=== PATIENT | female | born 1935 | race Caucasian/White ===

== ENCOUNTER 2017-10-20 13:05 | Emergency (ER) | payer MEDICARE, OTHER, SELFPAY ==
[2017-10-20 13:07] VITALS: BP 141/78; PULSE 66; RESP 16; TEMP 36.6; O2SAT 94; BMI 25.8
[2017-10-20 14:21] VITALS: BP 144/66; PULSE 69; RESP 18; O2SAT 97
--- NOTE | 2017-10-20 14:31 | EKG12_ITS ---
Test Reason : DIZZY Blood Pressure : / mmHG Vent. Rate : 063 BPM Atrial Rate : 063 BPM P-R Int : 166 ms QRS Dur : 126 ms QT Int : 444 ms P-R-T Axes : 074 -66 -03 degrees QTc Int : 454 ms Normal sinus rhythm Right bundle branch block Left anterior fascicular block Bifascicular block Abnormal ECG Confirmed by YOLANDA CRAIG, ZEHRA ([id number]), newspaper photo editor MELISSA RANDALL ([id number]) on 10/21/2017 2:30:03 PM Referred By: OKSANA Confirmed By:ZEHRA GUERRERO MD
--- NOTE | 2017-10-20 14:31 | CT_ITS ---
STUDY: CT BRAIN WITHOUT CONTRAST REASON FOR EXAM: Female, 81 years old. Dizziness, UTI history, history of CVA RADIATION DOSAGE (If Supplied By Facility): CTDIvol = ( 60.81 ) mGy, DLP = ( 998.67 ) mGycm TECHNIQUE: Transaxial CT imaging of the brain was performed without administration of intravenous contrast material. Individualized dose optimization techniques were used for this CT. COMPARISON: December 17, 2012 CT head. FINDINGS: Normal soft tissue structures. Normal calvarium. There is mild cerebral atrophy with widening of the extra-axial spaces and ventricular dilatation. There is a right-sided MCA territory area of low-attenuation involving the right temporoparietal lobe stable since prior study. There is a small punctate focus of low attenuation within the periphery of the left putamen. There is a minimal focus of right external capsule low attenuation. Normal brainstem. There is mild cerebellar atrophy. There is no intracranial hemorrhage. There are no findings of an acute ischemic infarction. Normal visualized paranasal sinuses. CT/Brain/Head without Contrast IMPRESSION: Old right MCA territory infarct. No evidence of acute hemorrhage infarct or edema. No significant sinusitis. Electronically Signed: Tram Bae MD at 15:47 EST Tel , Service support ,
[2017-10-20 14:56] LABS: Absolute Lymphocyte Count 2.18 X10^3/ul (0.83-4.51); Absolute Neutrophil Count 3.1 X10^3/uL (2.0-7.7); Basophil# 0.02 X10^3/uL; Basophil% 0.3 % (0-1); Eosinophil# 0.12 X10^3/uL; Hematocrit 32.8 % (37-47); Hemoglobin 9.7 g/dl (12.0-15.0); Lymphocyte # 2.18 X10^3/ul (4.0); Lymphocyte % 36.2 % (19-41); Mean Corp Hgb Conc 29.6 g/gl (32-36); Mean Corpuscular Hgb 23.3 pg (27.0-32.0); Mean Corpuscular Volume 78.7 fL (81-99); Mean Platelet Vol. 9.1 fl (6.2-12.0); Monocyte# 0.55 X10^3/uL; Monocyte% 9.1 % (0-10); Neutrophil # 3.14 X10^3/uL (2.7-7.7); Neutrophil % 52.2 % (47-70); Platelet Count 278 K/mm3 (150-450); RBC Distribution Width CV 17.9 % (11.6-14.6); RBC Distribution Width SD 51.2 fl (35.1-43.9); Red Blood Count 4.17 M/mm3 (4.2-5.4)
[2017-10-20 14:57] LABS: POSITIVE COUNT NO; POSITIVE DIFFERENTIAL NO; POSITIVE MORPHOLOGY NO
[2017-10-20 15:00] LABS: International Normalized Ratio 2.6; Prothrombin Time (Protime)PT. 28.3 SECONDS (11.7-14.9)
[2017-10-20 15:01] LABS: Bedside Glucose 98 mg/dL (70-110)
[2017-10-20 15:05] LABS: Anion Gap 3 (5-15); BUN 18 mg/dL (7-18); BUN/Creat Ratio 24.8 RATIO (10-20); Calcium,Total 8.3 mg/dL (8.5-10.1); Chloride 108 mmol/L (98-107); Creatinine, Serum 0.73 mg/dL (0.55-1.02); EST Glomerular Filtration Rate 82 mL/min (>60); Est Glom Filt Rate - Afr Amer 99 mL/min (>60); Estimated Creatinine Clearance 42.91 ml/min; Glucose 93 mg/dL (74-106); Potassium 3.5 mmol/L (3.5-5.1); Sodium Level 143 mmol/L (136-145)
[2017-10-20 16:03] LABS: Mucous, Urine 0 SEEN /hpf (<or=2+)
[2017-10-20 16:14] LABS: Color, Urine Yellow (Yellow); Glucose, Dipstick Normal (Normal); Ketone-Dipstick 15 mg/dl (Negative); Leukocyte Esterase-Dipstick 100 /ul (Negative); Nitrite-Dipstick Positive (Negative); Occult Blood-Urine 10 /ul (Negative); Protein-Dipstick 30 mg/dl (Negative); Specific Gravity, Urine 1.015 (1.002-1.030); Urine Clarity Clear (Clear); Urine Urobilinogen 8 mg/dl (Normal); Urine pH 6.5 (5.0 - 8.0)
[2017-10-20 16:21] LABS: Urine Bilirubin Dipstick 1 mg/dL (Negative)
[2017-10-20 16:26] LABS: Red Blood Cells-Urine 0-5 SEEN /hpf (0-5); Squamous Epithelial Cells - UA 0-5 SEEN /hpf (5-10); White Blood Cells 0-5 SEEN /hpf (0-5)
[2017-10-20 16:27] LABS: Bacteria RARE /hpf (None Seen)
[2017-10-20 16:50] VITALS: BP 162/87; PULSE 63; RESP 12; O2SAT 96
--- NOTE | 2017-10-20 16:53 | ED.VISSUMM ---
- ER Visit Summary Date of Service: 10/20/17 Chief Complaint: Dizzy History of Present Illness: The patient is a 81 F patient presents with dizziness since yesterday. She MIs with a walker, states she is walking to the left. There is no falls. Has had intermittent lightheaded symptoms when she lays down at home. There has been no syncopal episodes. No chest pains or shortness of breath. History of stroke and TIA in the past. She is on Coumadin therapy, reviewing records it may be for clotting disorder. There has been no PEs or atrial fibrillation in her records. However she does have a pacemaker for which family states for syncopal episode in the past, likely from a bradycardia. In addition she states she has been noticing blood in her stools. Had a colonoscopy in May last year by Dr. Oseguera for anemia. States there was no findings on that. Also currently on Macrobid day 4 of for UTI treatment by her PCP. States she had dysuria at that time along with back pain, states those symptoms are improving. Denies any abdominal pain. Past medical history: CVA, TIA, [place], hypertension, hypercholesterolemia, SVT, anemia, clotting disorder Physical Examination: General: Alert and oriented ?3, no acute distress HEENT: Normocephalic, atraumatic. Moist mucosa membranes. Normal conjunctiva Neck: supple, nontender. Cardiovascular: Regular rate and rhythm, no murmurs Respiratory: Normal breath sounds, symmetric, no distress Abdomen: Soft, nontender, nondistended Rectal: Nonthrombosed hemorrhoid circumferential, nontender. Brown stools, guaiac negative. . Extremities: Nontender, no edema, pulses intact ?4 Neuro: no focal neurological deficits.NIH equals 0. Cerebellar testing intact Test Results: EKG: Sinus rate of 63, right bundle branch block, left anterior fascicular block, no ST changes. Hemoglobin 9.7. WBC 6. UA: Positive signs for infection. Urine culture pending. CT head with old right MCA infarct. Emergency Department Course and Treatment: Patient vital signs stable, nontoxic. No focal neurological deficits. CT head was obtained shows no acute process, old infarct noted. EKG is chronic changes from previous. Labs noted hemoglobin 9.7 which same from November of last year. Creatinine 0.73. INR 2.6. UA still noted signs of infection. I did send for urine culture. Clinically patient's symptoms are improving, so do feel with improving clinical symptoms, patient to finish her antibiotics pending culture results. She did ambulate to the restroom for the urine sample and remained stable. Since likely UTI causing her symptoms at this time. She will follow-up with her PCP in the next 2-3 days for reevaluation. She return if any worsening symptoms. All questions were answered. Treatment Plan: [] Disposition: Discharge Impression: 1. Dizzy 2. UTI This note was generated with [employer]IVE dictation software. It may contain incorrect words, spelling, and punctuation that were not noted in review of the chart prior to signing ED Disposition - Plan for ED Patient: Disposition: Home or Assisted Living Chief Complaint: Neuro S/Sx Diagnosis: Dizziness, UTI (urinary tract infection) Instructions: ED Dizziness UKO, ED UTI Cystitis Female Referrals: Elmo Burdick DO [Primary Care Provider] - 2 Days Additional Instructions: Finish your Macrobid, urine culture is pending. Follow-up with your PCP in the next 2-3 days. Return if any worsening symptoms.
[2017-10-20 17:07] VITALS: BP 129/84; PULSE 73; RESP 15; O2SAT 98
== END 2017-10-20 17:09 | disposition home or self-care (01) ==
PROVIDERS: Emergency Provider Emergency Medicine; Family Provider Student in an Organized Health Care Education/Training Program; PCP Student in an Organized Health Care Education/Training Program
DX: N39.0 Urinary tract infection, site not specified (principal); R42 Dizziness and giddiness; I47.1 Supraventricular tachycardia; I25.2 Old myocardial infarction; I10 Essential (primary) hypertension; E78.00 Pure hypercholesterolemia, unspecified; D64.9 Anemia, unspecified; D68.9 Coagulation defect, unspecified; Z86.73 Personal history of transient ischemic attack (TIA), and cerebral infarction without residual deficits; Z79.01 Long term (current) use of anticoagulants; Z79.82 Long term (current) use of aspirin; Z79.899 Other long term (current) drug therapy; Z95.0 Presence of cardiac pacemaker
CPT/HCPCS: 70450; 80048; 81001; 82274; 82962; 85025; 85610; 85730; 87086; 87088; 93005; 99284

== ENCOUNTER 2018-08-23 09:15 | Inpatient (IN) | payer MEDICARE, OTHER, SELFPAY ==
[2018-08-23] VITALS (12 sets, daily range): BP systolic 129–152; BP diastolic 60–88; PULSE 60–93; RESP 16–18; TEMP 36.4–36.7; O2SAT 93–98; BMI 24.4; BMI 23.6
--- NOTE | 2018-08-23 09:19 | EKG12_ITS ---
Test Reason : CP Blood Pressure : / mmHG Vent. Rate : 075 BPM Atrial Rate : 060 BPM P-R Int : 186 ms QRS Dur : 126 ms QT Int : 412 ms P-R-T Axes : 062 -66 024 degrees QTc Int : 460 ms Atrial-paced rhythm with frequent Premature ventricular complexes Right bundle branch block Left anterior fascicular block Bifascicular block Abnormal ECG Confirmed by YOLANDA CRAIG, ZEHRA ([id number]), deputy editor in chief MELISSA RANDALL ([id number]) on 08/25/2018 9:13:43 AM Referred By: BB Confirmed By:ZEHRA GUERRERO MD
[2018-08-23 09:28] LABS: Absolute Lymphocyte Count 1.76 X10^3/ul (0.83-4.51); Absolute Neutrophil Count 3.4 X10^3/uL (2.0-7.7); Basophil# 0.02 X10^3/uL; Basophil% 0.4 % (0-1); Eosinophil# 0.12 X10^3/uL; Eosinophils% 2.1 % (0-5); Hematocrit 41.7 % (37-47); Hemoglobin 13.2 g/dl (12.0-15.0); Lymphocyte # 1.76 X10^3/ul (4.0); Lymphocyte % 30.9 % (19-41); Mean Corp Hgb Conc 31.7 g/gl (32-36); Mean Corpuscular Hgb 28.8 pg (27.0-32.0); Mean Platelet Vol. 8.8 fl (6.2-12.0); Monocyte# 0.42 X10^3/uL; Monocyte% 7.4 % (0-10); Neutrophil # 3.37 X10^3/uL (2.7-7.7); POSITIVE COUNT NO; POSITIVE DIFFERENTIAL NO; POSITIVE MORPHOLOGY NO; Platelet Count 229 K/mm3 (150-450); RBC Distribution Width CV 13.4 % (11.6-14.6); RBC Distribution Width SD 44.5 fl (35.1-43.9); Red Blood Count 4.58 M/mm3 (4.2-5.4); White Blood Count 5.7 K/mm3 (4.4-11.0)
--- NOTE | 2018-08-23 09:28 | ED.VISSUMM ---
- ER Visit Summary Date of Service: 08/23/18 Chief Complaint: [] Chest pain this morning History of Present Illness: The patient is a 82 F [] of cardiac pacemaker otherwise she gets her health has been stable, she indicates she woke feeling fine then around 7 AM she been having chest pain that radiates to her upper back it lasted until about 845 it went away by itself. She is not prone to have chest pain, she had no fever no cough no abdominal pain no numbness paresthesias, she is on Coumadin she has a pacemaker not a defibrillator is been functioning fine, her INRs have been therapeutic, she has intermittent blood per rectum she has had colonoscopies this year though unremarkable, thought she had some blood per rectum today this not unusual for her, she is currently pain-free she has no other complaints Physical Examination: [] 140/7598 afebrile General, no distress resting comfortably HEENT is generally unremarkable The neck is supple no adenopathy Cardiovascular, regular rate and rhythm Lungs, clear bilateral Abdomen, soft nontender Extremities, no clubbing cyanosis or edema, she has some scattered bruising to her extremities that she states is not unusual for her, rectal exam shows brown stool multiple hemorrhoids Neurologic, awake alert answering questions appropriately moving all 4 extremities Test Results: [] Emergency Department Course and Treatment: [] EKG shows a sinus rhythm, with pacing, she has occasional PVCs and intermittently in the room she has paced rhythm Treatment Plan: [] Patient's labs are generally unremarkable troponin slightly elevated at 0.05 remains asymptomatic, chest x-ray unremarkable please see all those reports d-dimer negative All the above we spoke with hospitalist arrange for admission for further management patient agrees Disposition: [] Admit stable Impression: [] Chest pain, abnormal troponin, paced rhythm This note was generated with [employer] dictation software. It may contain incorrect words, spelling, and punctuation that were not noted in review of the chart prior to signing ED Disposition - Plan for ED Patient: Chief Complaint: Chest Pain Referrals: Elmo Burdick DO [Primary Care Provider] -
--- NOTE | 2018-08-23 09:30 | RAD_ITS ---
STUDY: X-RAY CHEST REASON FOR EXAM: Female, 82 years old. Chest pain TECHNIQUE: AP COMPARISON: 01/23/2017 FINDINGS: EKG leads project over the chest. Two lead cardiac conduction device is seen via the left subclavian vein with lead tips projecting over the right atrium and right ventricle, respectively. The lungs are clear and expanded. There is no demonstrated pleural abnormality. Normal size heart. Normal mediastinum and roc. Normal visualized pulmonary arteries. There is atherosclerotic calcification of the aortic arch with tortuosity. There is demineralization of the osseous structures. Normal visualized ribs, clavicles, and shoulders. There is no demonstrated abnormality of the visualized soft tissue structures of the upper abdomen. RAD/Chest 1 View (Portable) IMPRESSION: Stable, nonacute portable x-ray examination of the chest. Electronically Signed: Issa Bustos MD at 9:56 EST , Service support ,
[2018-08-23] MEDS: Aspirin 81 MG TAB.CHEW 324 MG PO (09:34)
[2018-08-23] MEDS: 0.9% Normal Saline 1,000 ML 150 ML IV (09:34)
--- NOTE | 2018-08-23 09:36 | ED.DCSUM_ITS ---
- ER Visit Summary Date of Service: 08/23/18 Chief Complaint: [] Chest pain this morning History of Present Illness: The patient is a 82 F [] of cardiac pacemaker otherwise she gets her health has been stable, she indicates she woke feeling fine then around 7 AM she been having chest pain that radiates to her upper back it lasted until about 845 it went away by itself. She is not prone to have chest pain, she had no fever no cough no abdominal pain no numbness paresthesias, she is on Coumadin she has a pacemaker not a defibrillator is been functioning fine, her INRs have been therapeutic, she has intermittent blood per rectum she has had colonoscopies this year though unremarkable, thought she had some blood per rectum today this not unusual for her, she is currently pain- free she has no other complaints Physical Examination: [] 140/7598 afebrile General, no distress resting comfortably HEENT is generally unremarkable The neck is supple no adenopathy Cardiovascular, regular rate and rhythm Lungs, clear bilateral Abdomen, soft nontender Extremities, no clubbing cyanosis or edema, she has some scattered bruising to her extremities that she states is not unusual for her, rectal exam shows brown stool multiple hemorrhoids Neurologic, awake alert answering questions appropriately moving all 4 extremities Test Results: [] Emergency Department Course and Treatment: [] EKG shows a sinus rhythm, with pa cing, she has occasional PVCs and intermittently in the room she has paced rhythm Treatment Plan: [] Patient's labs are generally unremarkable troponin slightly elevated at 0.05 remains asymptomatic, chest x-ray unremarkable please see all those reports d-dimer negative All the above we spoke with hospitalist arrange for admission for further management patient agrees Disposition: [] Admit stable Impression: [] Chest pain, abnormal troponin, paced rhythm This note was generated with [employer] dictation software. It may contain incorrect words, spelling, and punctuation that were not noted in review of the chart prior to signing ED Disposition - Plan for ED Patient: Chief Complaint: Chest Pain Referrals: Elmo Burdick DO [Primary Care Provider] -
[2018-08-23 09:46] LABS: Anion Gap 7 (5-15); BUN 18 mg/dL (7-18); BUN/Creat Ratio 21.8 RATIO (10-20); Calcium,Total 8.9 mg/dL (8.5-10.1); Chloride 108 mmol/L (98-107); Creatinine, Serum 0.83 mg/dL (0.55-1.02); EST Glomerular Filtration Rate 70 mL/min (>60); Est Glom Filt Rate - Afr Amer 85 mL/min (>60); Estimated Creatinine Clearance 50.82 ml/min; Glucose 107 mg/dL (74-106); Potassium 4.2 mmol/L (3.5-5.1); Sodium Level 143 mmol/L (136-145)
[2018-08-23 09:59] LABS: BNP,B-Type NATRIURETIC PEPTIDE 127.1 pg/mL (0-100)
[2018-08-23 10:07] LABS: D-Dimer Quantitative (DVT/PE) 0.27 FEU/ug/m (0.27-0.49)
--- NOTE | 2018-08-23 10:38 | HP.PCM_ITS ---
History of Present Illness Date of Admission: 08/23/18 Chief Complaint: chest pain The patient is a 82 year old F with past medical history as listed. She was admitted with a complaint of chest pain which started early in the morning of admission. Pain was retrosternal, cramping, with associated increased sweating. She denied any lightheadedness or dizziness. She also had no fever chills or cough or any history of long distance travel recently. She called her family who brought her to the ED. The ED, vitals were essentially stable chest x-ray showed no acute cardia pulmonary process. Troponin was 0.046 and EKG showed no acute ST changes and showed bifascicular block and paced rhythm. BNP was 127.1. She is been admitted to be managed for chest pain to rule out ACS. [] Past Medical History Past Medical History (Chronic Problems): Chronic Problems H/O cardiac catheterization (Chronic) History of TIA (transient ischemic attack) (Chronic) History of syncope (Chronic) Hypothyroidism (Chronic) History of breast cancer (Chronic) Benign essential hypertension (Chronic) Allergies levofloxacin [From Levaquin] Allergy (Verified 10/20/17 13:07) Angioedema lisinopril Allergy (Verified 10/20/17 13:07) Swelling Penicillins Allergy (Verified 10/20/17 13:07) Itching Sulfa (Sulfonamide Antibiotics) Allergy (Verified 10/20/17 13:07) Angioedema Home Medications: Ambulatory Orders Medication Instructions Recorded Amlodipine [Norvasc] 2.5 mg PO QHS 08/20/13 Aspirin, Baby 81 mg PO QHS 08/20/13 Atorvastatin Calcium [Lipitor] 20 mg PO QHS 08/20/13 Levothyroxine [Synthroid] 88 mcg PO QHS 08/20/13 Warfarin Sodium 3 mg PO DAILY 12/11/16 Atenolol [Tenormin (beta alissa)] 50 mg PO QHS 05/20/17 Potassium Chloride [Klor-Con 10] 10 meq PO DAILY 05/26/17 Ferrous Sulfate [Iron] 325 mg PO DAILY 08/23/18 Surgical History: - - Pacemaker placement, cardiac catheterization, loop recorder implantation, right mastectomy Psychiatric History: No pertinent psych hx 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 Denies: Chest Pressure, Chest Tightness, Edema, Orthopnea, Palpitations, Paroxysmal Noc. Dyspnea, Syncope Respiratory: Denies: Cough, Pleuritic Pain, Shortness of Breath, Shortness of breath at rest, Shortness of breath upon exertion, Sputum production Gastrointestinal: Denies: Abdominal Pain, Nausea, Vomiting Musculoskeletal: Denies: Joint Pain, Joint Tenderness Skin: Denies: Rash, Wounds Neurological: Denies: Numbness, Tingling, Focal weakness Psychiatric: Denies: Anxiety, Depression, Homicidal Ideations, Suicidal Ideations Hematologic/ Lymphatic: Denies: Easy Bruising, Easy Bleeding VTE Information - Inpt Only VTE Present on Admission: No VTE Pharm Prophylaxis ordered?: Yes - Physical Exam General: Alert, Oriented x3, Cooperative, No apparent distress HEENT: Atraumatic, PERRLA, EOMI, Normocephalic Oral: Moist Mucosa Neck: Supple, No JVD, Negative Carotid Bruits Lungs: Clear to auscultation, Normal air movement, No rhonchi, No wheeze, No rales Cardiovascular: Regular rate, Regular Rhythm, Normal S1, Normal S2, No murmurs Abdomen: Bowel Sounds Present, Soft, Non Tender, Non-Distended, No Hepato- splenomegaly Extremities: No clubbing, No cyanosis, No edema, Capillary Refill Less than 3 Seconds Skin: No rashes, No breakdown Musculoskeletal: No Tenderness to Palpation of Joints or Extremities, - - right breast mastectomy Lymphatic: No Cervical, Supraclavicular, or Inguinal Adenopathy Neurological: Cranial nerves II-XII grossly intact, Neuro grossly intact Psych/Mental Status: Normal Affect, Appropriate, Alert and oriented to time, place, person, mood and affect Vital Signs Temp Pulse Resp BP Pulse Ox 97.6 F L 93 16 129/60 H 96 08/23/18 09:16 08/23/18 10:06 08/23/18 10:06 08/23/18 10:06 08/23/18 10:06 Oxygen Flow Rate (L/min) 2 Oxygen Delivery Method Nasal Cannula Weight: 156 lb 1.396 oz Body Mass Index (BMI) 24.4 Finger Stick Blood Glucose 98 Laboratory Tests Past 24 Hrs 08/23/18 08/23/18 08/23/18 09:24 09:24 09:24 WBC 5.7 RBC 4.58 Hgb 13.2 Hct 41.7 MCV 91.0 MCH 28.8 MCHC 31.7 L RDW 13.4 RDW Differential 44.5 H Plt Count 229 MPV 8.8 Immature Gran % (Auto) 0.200 Neut % (Auto) 59.0 Lymph % (Auto) 30.9 [place] % (Auto) 7.4 Eos % (Auto) 2.1 Baso % (Auto) 0.4 Absolute Neuts (auto) 3.4 Absolute Lymphs (auto) 1.76 Total Counted Not Reportable PT INR D-Dimer Quant (PE/DVT) Sodium 143 Potassium 4.2 Chloride 108 H Carbon Dioxide 28.0 Anion Gap 7 BUN 18 Creatinine 0.83 Estim Creat Clear Calc 50.82 Est GFR (MDRD) Af Amer 85 Est GFR (MDRD) Non-Af 70 BUN/Creatinine Ratio 21.8 H Glucose 107 H Calcium 8.9 Troponin I 0.046 H B-Natriuretic Peptide 127.1 H 08/23/18 09:24 WBC RBC Hgb Hct MCV MCH MCHC RDW RDW Differential Plt Count MPV Immature Gran % (Auto) Neut % (Auto) Lymph % (Auto) [place] % (Auto) Eos % (Auto) Baso % (Auto) Absolute Neuts (auto) Absolute Lymphs (auto) Total Counted PT 23.0 H INR 2.0 D-Dimer Quant (PE/DVT) 0.27 Sodium Potassium Chloride Carbon Dioxide Anion Gap BUN Creatinine Estim Creat Clear Calc Est GFR (MDRD) Af Amer Est GFR (MDRD) Non-Af BUN/Creatinine Ratio Glucose Calcium Troponin I B-Natriuretic Peptide Assessment/Plan 82-year-old admitted with a complaint of chest pain 1. NSTEMI * presented with Chest pain which is retrosternal cramping in nature with associated increased diaphoresis. * has a history of NSTEMi in 2014; cath done in 2012 was negative * initial troponin was 0.056; no acute ST changes; troponin trended upwards to 0.758 * admit to PCU with telemetry * cycle troponins * received one dose of aspirin 324mg in ED; will give plavix 300mg once and atorvastatin 40mg once, and continue daily * 2D echo tomorrow * cardiology consult * * 2. Hypertension: controlled. On amlodipine and atenolol 3. History of syncope s/p pacemaker placement: stable 5. Hypothyroidism; on synthroid 6.History of hypercoagulable state: on coumadin. INR is 2. Will continue 7. History of breast ca s/p right mastectomy and adjuvant chemotherapy * stable. 8. History of episodic rectal bleeding: * EGD and colonoscopy done in 06/03 showed normal duodenum and normal stomach and esophagus; few fundic polyps in stomach which were biopsied; hiatal hernia, normal cecum, ascending, transverse and descending colon, moderate div erticular disease in sigmoid colon.SIgnificant external hemorrhoids * currently stable. * will monitor * DVT prophylaxis: on coumadin. Code status; patient and family counseled extensively about different types of CODE STATUS including full code, DNR CCA and DNR CCA. Patient elects to be DNRCCA. Total [id number] time 16 minutes. Code Visit Inpatient E&M: 37072 Init Hosp L3 Procedures: 89306 Advncd Care Plan 30 Min
--- NOTE | 2018-08-23 11:33 | EKG12_ITS ---
Test Reason : CP ADMIT Blood Pressure : / mmHG Vent. Rate : 080 BPM Atrial Rate : 080 BPM P-R Int : 194 ms QRS Dur : 126 ms QT Int : 406 ms P-R-T Axes : 000 -71 026 degrees QTc Int : 468 ms Atrial-paced rhythm Right bundle branch block Left anterior fascicular block Bifascicular block Abnormal ECG Confirmed by DONNY CRAIG, KLEVER ([id number]), video effects editor MELISSA RANDALL ([id number]) on 08/27/2018 10:53:03 AM Referred By: ALEXI Confirmed By:KLEVER HINES MD
--- NOTE | 2018-08-23 14:28 | NURSING ---
Pt ambulated in loo with this RN. Pt was asymptomatic with activity; no dizziness, lightheadedness, or syncope. ECG reviewed after activity and pt remained NSR with HR in the 60's while ambulating. Daniel ROBLES
[2018-08-23] MEDS: Clopidogrel Bisulfate 300 MG Tablet PO (15:08)
[2018-08-23] MEDS: Aspirin 81 MG TAB.CHEW PO (21:18)
[2018-08-23] MEDS: Atenolol 50 MG Tablet PO (21:18)
[2018-08-23] MEDS: amLODIPine 2.5 MG Tablet PO (21:18)
[2018-08-23] MEDS: Atorvastatin Calcium 40 MG Tablet PO (21:18)
[2018-08-23 21:58] LABS: Magnesium 2.1 mg/dL (1.6-2.6)
[2018-08-24] VITALS (11 sets, daily range): BP systolic 110–153; BP diastolic 63–78; PULSE 60–66; RESP 14–18; TEMP 36.5–36.9; O2SAT 93–95
[2018-08-24 05:40] LABS: Absolute Lymphocyte Count 2.14 X10^3/ul (0.83-4.51); Absolute Neutrophil Count 2.5 X10^3/uL (2.0-7.7); Basophil# 0.02 X10^3/uL; Basophil% 0.4 % (0-1); Eosinophil# 0.21 X10^3/uL; Hematocrit 40.7 % (37-47); Lymphocyte # 2.14 X10^3/ul (4.0); Lymphocyte % 40.7 % (19-41); Mean Corp Hgb Conc 31.9 g/gl (32-36); Mean Corpuscular Hgb 28.9 pg (27.0-32.0); Mean Corpuscular Volume 90.4 fL (81-99); Mean Platelet Vol. 9.2 fl (6.2-12.0); Monocyte# 0.41 X10^3/uL; Monocyte% 7.8 % (0-10); Neutrophil # 2.48 X10^3/uL (2.7-7.7); Neutrophil % 47.1 % (47-70); Platelet Count 219 K/mm3 (150-450); RBC Distribution Width CV 13.2 % (11.6-14.6); RBC Distribution Width SD 43.9 fl (35.1-43.9); White Blood Count 5.3 K/mm3 (4.4-11.0)
[2018-08-24 05:47] LABS: Anion Gap 6 (5-15); BUN 11 mg/dL (7-18); BUN/Creat Ratio 16.4 RATIO (10-20); Calcium,Total 8.8 mg/dL (8.5-10.1); Chloride 110 mmol/L (98-107); Creatinine, Serum 0.67 mg/dL (0.55-1.02); EST Glomerular Filtration Rate 89 mL/min (>60); Est Glom Filt Rate - Afr Amer 108 mL/min (>60); Estimated Creatinine Clearance 42.18 ml/min; Glucose 100 mg/dL (74-106); Potassium 4.1 mmol/L (3.5-5.1); Sodium Level 143 mmol/L (136-145)
[2018-08-24 05:49] LABS: Bacteria 0 SEEN /hpf (None Seen); Mucous, Urine 0 SEEN /hpf (<or=2+); Red Blood Cells-Urine 0 SEEN /hpf (0-5)
[2018-08-24] MEDS: Levothyroxine 88 MCG Tablet PO (05:51)
[2018-08-24] MEDS: Aspirin 81 MG TAB.CHEW PO (05:55)
--- NOTE | 2018-08-24 05:55 | EKG12_ITS ---
Test Reason : AM EKG Blood Pressure : / mmHG Vent. Rate : 060 BPM Atrial Rate : 060 BPM P-R Int : 190 ms QRS Dur : 126 ms QT Int : 424 ms P-R-T Axes : 000 -69 -31 degrees QTc Int : 424 ms Atrial-paced rhythm Right bundle branch block Left anterior fascicular block Bifascicular block Inferior infarct , age undetermined Abnormal ECG Confirmed by DONNY CRAIG, KLEVER ([id number]), multimedia editor MELISSA RANDALL ([id number]) on 08/27/2018 10:50:53 AM Referred By: ALEXI Confirmed By:KLEVER HINES MD
[2018-08-24] MEDS: 0.9% NaCl Peripheral Flush Adult/Peds IV (06:01)
[2018-08-24 06:13] LABS: Prothrombin Time (Protime)PT. 22.8 SECONDS (11.7-14.9)
[2018-08-24 06:14] LABS: Partial Thromboplast Time 34.3 Seconds (24.1-36.2)
[2018-08-24 06:25] LABS: POSITIVE COUNT NO; POSITIVE DIFFERENTIAL NO; POSITIVE MORPHOLOGY NO
--- NOTE | 2018-08-24 08:00 | ECHOCS_ITS ---
Reason For Study: CHEST PAIN Procedure This was a 2D Doppler, Color Flow transthoracic echocardiogram. Contrast injection was performed. The study was technically difficult. Exam performed portable in patient room. Left Ventricle Normal LV size. Left ventricular systolic function is normal. The estimated ejection fraction is 55 %. Stage 1 diastolic dysfunction. No regional wall motion abnormalities noted. Right Ventricle Normal RV size. ICD or pacer leads identified within the right ventricle. Normal systolic function. Atria Normal left atrium. Normal right atrium. Mitral Valve Normal mitral valve. Tricuspid Valve Normal tricuspid valve. Trivial tricuspid valve insufficiency. Aortic Valve The aortic valve is not well visualized. Pulmonic Valve The pulmonic valve is not well visualized. Great Vessels Normal aortic root. The pulmonary artery is normal size. Normal inferior vena cava. Pericardium/Pleural No pericardial effusion. Medication Diluted definity 9ml given slow IV push to enhance endocardial definition. MMode/2D Measurements & Calculations LVIDd: 4.5 cm IVSd: 1.0 cm Ao root diam: 3.2 cm LVIDs: 3.3 cm LVPWd: 0.87 cm FS: 25.8 % LAV(MOD-bp): 51.5 ml LVAd ap4: 31.1 cm2 SV(MOD-sp4): 56.6 ml LAV(MOD-bp) Indexed: 28.8 ml/m2 EDV(MOD-sp4): 107.7 ml LAV(MOD-sp2): 42.4 ml EDV(sp4-el): 111.1 ml LAV(MOD-sp4): 59.7 ml LVAs ap4: 20.6 cm2 ESV(MOD-sp4): 51.1 ml ESV(sp4-el): 55.5 ml EF(MOD-sp4): 52.5 % EF(sp4-el): 50.0 % SV(sp4-el): 55.6 ml LA A4 area: 20.1 cm2 LA dimension(2D): 3.6 cm RA A4 area: 11.9 cm2 Time Measurements MV dec time: 0.35 sec Doppler Measurements & Calculations MV E max sanjiv: 55.9 cm/sec Lat Peak E' Sanjiv: 5.7 cm/sec Med Peak E' Sanjiv: 3.8 cm/sec MV A max sanjiv: 94.1 cm/sec E/E' lat: 9.8 E/E' med: 14.7 MV E/A: 0.59 MV V2 max: 92.3 cm/sec Ao V2 max: 153.4 cm/sec LV V1 max: 92.1 cm/sec MV max P.4 mmHg Ao max P.4 mmHg LV V1 max P.4 mmHg MV V2 mean: 50.7 cm/sec Ao V2 mean: 108.9 cm/sec LV V1 mean P.7 mmHg MV mean P.2 mmHg Ao mean P.1 mmHg LV V1 mean: 60.1 cm/sec MV V2 VTI: 33.5 cm Ao V2 VTI: 30.0 cm LV V1 VTI: 18.3 cm PA V2 max: 73.8 cm/sec TR max sanjiv: 212.1 cm/sec MV P1/2t-pr_phl: 163.7 msec TR max P.0 mmHg Interpretation Summary Normal LV size. Left ventricular systolic function is normal. The estimated ejection fraction is 55 %. Stage 1 diastolic dysfunction. Contrast injection was performed. Ordering Physician: Radha Suazo Referring Physician: RICK GARLAND Performed By: Melissa Murphy, TIENCS, RVT
[2018-08-24 08:16] LABS: Color, Urine Yellow (Yellow); Glucose, Dipstick Normal (Normal); Ketone-Dipstick Negative (Negative); Leukocyte Esterase-Dipstick Negative /ul (Negative); Nitrite-Dipstick Negative (Negative); Occult Blood-Urine Negative /ul (Negative); Protein-Dipstick Negative (Negative); Urine Bilirubin Dipstick Negative (Negative); Urine Clarity Clear (Clear); Urine Urobilinogen Normal (Normal)
[2018-08-24 08:23] LABS: Squamous Epithelial Cells - UA 0-5 SEEN /hpf (5-10); White Blood Cells 0-5 SEEN /hpf (0-5)
--- NOTE | 2018-08-24 09:51 | PCM.CONS.C ---
Problem List (1) Pacemaker Status: Acute (2) H/O cardiac catheterization Status: Chronic (3) History of TIA (transient ischemic attack) Status: Chronic (4) Benign essential hypertension Status: Chronic Reason for Consult Date of Consultation: 08/24/18 Reason for Consultation: Pacemaker, TIA, hypertension, previous smoker non-STEMI History of Present Illness: The patient is a 82 year old F, was fairly functional, nondiabetic, with hypertension, previous pacemaker placed in 2012, follows with Dr. Reid here locally, presumptive history of TIA and is on chronic Coumadin therapy at least for the last 2 years. She is a former smoker who quit around 20 years ago after a [id number] smoking history. The patient is fairly active and lives alone, and while she was doing her daily chores yesterday she developed midsternal chest pain, which was nonradiating with no associated shortness of breath but did have some nausea but no vomiting. When her symptoms did not improve she came to [facility] ER. Her EKG showed paced atrial rhythm with left anterior hemiblock, and baseline right bundle branch block. No acute changes were noted. Her initial troponin was 0.056, and peaked at 2.0. Patient was loaded with Plavix and her Coumadin was held. Her INR this morning is 2.0. In addition the patient reportedly had a catheterization several years ago prior to her pacemaker apparently was unable to go through the right radial, as well as the right femoral but she does not remember why. The patient has excellent pulses in her bilateral femoral arteries. 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 [] Past Medical History Allergies/Adverse Reactions: Allergies levofloxacin [From Levaquin] Allergy (Verified 10/20/17 13:07) Angioedema lisinopril Allergy (Verified 10/20/17 13:07) Swelling Penicillins Allergy (Verified 10/20/17 13:07) Itching Sulfa (Sulfonamide Antibiotics) Allergy (Verified 10/20/17 13:07) Angioedema Home Medications: Ambulatory Orders Medication Instructions Recorded Amlodipine [Norvasc] 2.5 mg PO QHS 08/20/13 Aspirin, Baby 81 mg PO QHS 08/20/13 Atorvastatin Calcium [Lipitor] 20 mg PO QHS 08/20/13 Levothyroxine [Synthroid] 88 mcg PO QHS 08/20/13 Warfarin Sodium 3 mg PO DAILY 04/26/17 Atenolol [Tenormin (beta alissa)] 50 mg PO QHS 05/20/17 Potassium Chloride [Klor-Con 10] 10 meq PO DAILY 05/26/17 Ferrous Sulfate [Iron] 325 mg PO DAILY 08/23/18 Past Medical History (Chronic Problems): Chronic Problems H/O cardiac catheterization (Chronic) History of TIA (transient ischemic attack) (Chronic) History of syncope (Chronic) Hypothyroidism (Chronic) History of breast cancer (Chronic) Benign essential hypertension (Chronic) Surgical History: - - Pacemaker placement, cardiac catheterization, loop recorder implantation, right mastectomy Psychiatric History: 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 Denies: Shortness of Breath, Orthopnea, PND, Peripheral Edema, Palpitations, Lightheadedness, Dizziness, Near Syncope, Syncope Respiratory: Denies: Cough, Sputum Production, Hemoptysis Gastrointestinal: Denies: Hematemesis, Hematochezia, Melena Genitourinary: Denies: Dysuria, Hematuria Skin: Denies: Rash Subjectve: Patient resting comfortably, no acute distress. Objective: Vital Signs Temp Pulse Resp BP Pulse Ox 97.7 F L 60 16 153/73 H 94 08/24/18 09:00 08/24/18 09:00 08/24/18 09:00 08/24/18 09:00 08/24/18 09:00 Oxygen Flow Rate (L/min) 2 Oxygen Delivery Method Room Air Weight: 150 lb 14.4 oz Body Mass Index (BMI) 23.6 Finger Stick Blood Glucose 98 Intake and Output for Last 24 Hours 08/22/18 08/23/18 08/24/18 23:59 23:59 23:59 Intake Total 375 / 375 120 / 120 Balance 375 / 375 120 / 120 General: Awake, Alert, Oriented x 3 HEENT: PERRL, EOMI, Sclera Non Icteric Neck: Supple, Good ROM, No Lymph Node Enlargement Lungs: Clear to auscultation Cardiovascular: Regular Rhythm, Normal S1, Normal S2, No Murmurs, No Rubs, No Gallops Vascular: No Carotid Bruits, Normal Femoral Pulses, Normal Radial Pulses, Normal Dorsalis Pedal Pulse, Normal Posterior Tibial Pulses Abdomen: Bowel Sounds Present, Soft, Non Tender, No HSM, No Organomegaly Extremities: No Cyanosis, No Clubbing, No edema Neurological: No Focal Motor or Sensory Deficit 08/23/18 09:24: B-Natriuretic Peptide 127.1 H 08/23/18 09:24: PT 23.0 H, INR 2.0, D-Dimer Quant (PE/DVT) 0.27 08/23/18 12:20: Troponin I 0.758 H* 08/23/18 15:40: Troponin I 1.570 H* 08/23/18 17:12: Troponin I 1.980 H* 08/23/18 20:07: Troponin I 2.180 H* 08/23/18 20:07: Magnesium 2.1 08/23/18 22:58: Troponin I 2.070 H* 08/24/18 04:58: Urine Color Yellow, Urine Clarity Clear, Urine pH 7.0, Ur Specific [place] 1.010, Urine Protein Negative, Urine Glucose (UA) Normal, Urine Ketones Negative, Urine Occult Blood Negative, Urine Nitrite Negative, Urine Bilirubin Negative, Urine Urobilinogen Normal, Ur Leukocyte Esterase Negative, Urine RBC 0 SEEN, Urine WBC 0-5 SEEN 08/24/18 05:00: WBC 5.3, RBC 4.50, Hgb 13.0, Hct 40.7, MCV 90.4, MCH 28.9, MCHC 31.9 L, RDW 13.2, RDW Differential 43.9, Plt Count 219, MPV 9.2, Immature Gran % (Auto) 0.000, Neut % (Auto) 47.1, Lymph % (Auto) 40.7, [place] % (Auto) 7.8, Eos % (Auto) 4.0, Baso % (Auto) 0.4, Absolute Neuts (auto) 2.5, Total Counted Not Reportable 08/24/18 05:00: Sodium 143, Potassium 4.1, Chloride 110 H, Carbon Dioxide 27.0, Anion Gap 6, BUN 11, Creatinine 0.67, Est GFR (MDRD) Af Amer 108, Est GFR (MDRD) Non-Af 89, BUN/Creatinine Ratio 16.4, Glucose 100, Calcium 8.8 08/24/18 05:00: PT 22.8 H, INR 2.0, APTT 34.3 Rhythm: EKG: As above ECHO: Pending Stress Test: Cardiac Cath: Pending PCI: CT Surgery: Holter monitor: EPS: PPM: CXR: Chest CT Scan: Assessment/Plan 1. Unstable angina: The patient presents with new onset anginal symptoms, with associated chest pain, angina, nausea, with abnormal troponins peaking at 2.0. Patient did have a catheterization many years ago however we do not have those records. She reportedly was unable to gain access via the radial or right femoral reportedly due to mastectomy. Patient was loaded with 300 mg of Plavix and would recommend baby aspirin 81 mg daily, Plavix 75 mg a day, continue atenolol and nitroglycerin paste. We will need to wait to her INR decreases to at least 1.6 prior to catheterization via the right or left groin. She has excellent pulses bilaterally but does have a history of vasculitis which may have been the reason why they could not access her right femoral artery. In addition she will undergo a 2D echo with Doppler to document her LV function and valvular status as well as her pulmonary pressures. 2. Hyperlipidemia: Recommend obtaining a fasting lipid profile. Continue Lipitor. 3. Status post pacemaker: Patient status post pacemaker. We will need to obtain the records of Dr. Reid's office with respect to her pacemaker, previous catheterization. The patient reportedly has had no stents in the past. 4. TIA: As best I can tell the patient is on Coumadin for possible previous TIA as well as possibly for vasculitis. This will need to be held prior to her catheterization and can be resumed once it is been completed. 5. Thank you very much for the opportunity to participate in the cardiac care of your patient. Consultation time took place between 930 and 10 AM. Code Visit Inpatient E&M: 44840 Init Hosp L2
--- NOTE | 2018-08-24 09:52 | PCM.PN.HOSP ---
Subjective: Patient seen and examined. She was admitted with a complaint of chest pain. She was found to have a non-STEMI. Cardiology on board. Patient has no complaints this morning. Chest pain has resolved. She denies any fever, any chills, any palpitations or shortness of breath, any dizziness, any abdominal pain, any diarrhea vomiting. Review of systems otherwise negative. Labs and vitals reviewed. Vitals/I&O's: Vital Signs Temp Pulse Resp BP Pulse Ox 97.7 F L 60 16 153/73 H 94 08/24/18 09:00 08/24/18 09:00 08/24/18 09:00 08/24/18 09:00 08/24/18 09:00 Oxygen Flow Rate (L/min) 2 Oxygen Delivery Method Room Air Weight: 150 lb 14.4 oz Body Mass Index (BMI) 23.6 Finger Stick Blood Glucose 98 Intake and Output for Last 24 Hours 08/22/18 08/23/18 08/24/18 23:59 23:59 23:59 Intake Total 375 / 375 120 / 120 Balance 375 / 375 120 / 120 General: Alert, Oriented x3, Cooperative, No apparent distress HEENT: Atraumatic, PERRLA, EOMI, Normocephalic Oral: Moist Mucosa Neck: Supple, No JVD, Negative Carotid Bruits Lungs: Clear to auscultation, Normal air movement, No rhonchi, No wheeze, No rales Cardiovascular: Regular rate, Regular Rhythm, Normal S1, Normal S2, No murmurs Abdomen: Bowel Sounds Present, Soft, Non Tender, Non-Distended, No Hepato-splenomegaly Extremities: No clubbing, No cyanosis, No edema, Capillary Refill Less than 3 Seconds Skin: No rashes, No breakdown Musculoskeletal: No Tenderness to Palpation of Joints or Extremities, - - right breast mastectomy Lymphatic: No Cervical, Supraclavicular, or Inguinal Adenopathy Neurological: Cranial nerves II-XII grossly intact, Neuro grossly intact Psych/Mental Status: Normal Affect, Appropriate, Alert and oriented to time, place, person, mood and affect Laboratory Results 08/23/18 09:24: B-Natriuretic Peptide 127.1 H 08/23/18 09:24: PT 23.0 H, INR 2.0, D-Dimer Quant (PE/DVT) 0.27 08/23/18 12:20: Troponin I 0.758 H* 08/23/18 15:40: Troponin I 1.570 H* 08/23/18 17:12: Troponin I 1.980 H* 08/23/18 20:07: Troponin I 2.180 H* 08/23/18 20:07: Magnesium 2.1 08/23/18 22:58: Troponin I 2.070 H* 08/24/18 04:58: Urine Color Yellow, Urine Clarity Clear, Urine pH 7.0, Ur Specific [place] 1.010, Urine Protein Negative, Urine Glucose (UA) Normal, Urine Ketones Negative, Urine Occult Blood Negative, Urine Nitrite Negative, Urine Bilirubin Negative, Urine Urobilinogen Normal, Ur Leukocyte Esterase Negative, Urine RBC 0 SEEN, Urine WBC 0-5 SEEN, Ur Squamous Epith Cells 0-5 SEEN, Urine Bacteria 0 SEEN, Urine Mucus 0 SEEN 08/24/18 05:00: WBC 5.3, RBC 4.50, Hgb 13.0, Hct 40.7, MCV 90.4, MCH 28.9, MCHC 31.9 L, RDW 13.2, RDW Differential 43.9, Plt Count 219, MPV 9.2, Immature Gran % (Auto) 0.000, Neut % (Auto) 47.1, Lymph % (Auto) 40.7, [place] % (Auto) 7.8, Eos % (Auto) 4.0, Baso % (Auto) 0.4, Absolute Neuts (auto) 2.5, Absolute Lymphs (auto) 2.14, Total Counted Not Reportable 08/24/18 05:00: Sodium 143, Potassium 4.1, Chloride 110 H, Carbon Dioxide 27.0, Anion Gap 6, BUN 11, Creatinine 0.67, Estim Creat Clear Calc 42.18, Est GFR (MDRD) Af Amer 108, Est GFR (MDRD) Non-Af 89, BUN/Creatinine Ratio 16.4, Glucose 100, Calcium 8.8 08/24/18 05:00: PT 22.8 H, INR 2.0, APTT 34.3 Current Medications Amlodipine Besylate (Norvasc) 2.5 mg PO QHS [facility] Last Admin: 08/23/18 21:18 Dose: 2.5 mg Aspirin (Aspirin, Baby) 81 mg PO QHS [facility] Last Admin: 08/24/18 05:55 Dose: 81 mg Atenolol (Tenormin (Beta Candace)) 50 mg PO QHS [facility] Last Admin: 08/23/18 21:18 Dose: 50 mg Atorvastatin Calcium (Lipitor) 40 mg PO QHS [facility] Last Admin: 08/23/18 21:18 Dose: 40 mg Clopidogrel Bisulfate (Plavix) 75 mg PO DAILY [facility] Sodium Chloride () 1,000 mls @ 0 mls/hr IV .Q0M [facility] Last Admin: 08/23/18 09:34 Dose: 150 mls/hr Levothyroxine Sodium (Synthroid) 88 mcg PO DAILY@0600 [facility] Last Admin: 08/24/18 05:51 Dose: 88 mcg Magnesium Hydroxide (Milk Of Magnesia) 30 ml PO DAILY PRN PRN PRN Reason: Constipation Nitroglycerin (Nitrostat) 0.4 mg SUBLINGUAL Q5M PRN PRN Reason: CARDIAC/CHEST PAIN Potassium Chloride (K-Dur) 10 meq PO DAILYCM [facility] Sodium Chloride () 5 - 15 ml IV UD PRN PRN Reason: SALINE FLUSH Last Admin: 08/24/18 06:01 Dose: 10 ml Warfarin Sodium (Coumadin (Pbkc)) 3 mg PO DAILY@1700 [facility] Medical Necessity - Tobacco Use Smoking Status: Former smoker Assessment/Plan 82-year-old admitted with a complaint of chest pain 1. NSTEMI chest pain has resolved troponin trended up and peaked at 2.18 cardiology on board on aspirin, plavix and atorvastatin 2D echo pending cardiology on board will check A1C and lipid panel 2. Hypertension: controlled. On amlodipine and atenolol 3. History of syncope s/p pacemaker placement: stable 5. Hypothyroidism; on synthroid 6.History of hypercoagulable state: on coumadin. INR today is 2. 7. History of breast ca s/p right mastectomy and adjuvant chemotherapy stable. 8. History of episodic rectal bleeding: EGD and colonoscopy done in 06/03 showed normal duodenum and normal stomach and esophagus; few fundic polyps in stomach which were biopsied; hiatal hernia, normal cecum, ascending, transverse and descending colon, moderate diverticular disease in sigmoid colon.SIgnificant external hemorrhoids currently stable. will monitor DVT prophylaxis: on coumadin. Code Visit Inpatient E&M: 40031 [facility] L3
--- NOTE | 2018-08-24 09:55 | PN_ITS ---
Subjective: Patient seen and examined. She was admitted with a complaint of chest pain. She was found to have a non-STEMI. Cardiology on board. Patient has no complaints this morning. Chest pain has resolved. She denies any fever, any chills, any palpitations or shortness of breath, any dizziness, any abdominal pain, any diarrhea vomiting. Review of systems otherwise negative. Labs and vitals reviewed. Vitals/I&O's: Vital Signs Temp Pulse Resp BP Pulse Ox 97.7 F L 60 16 153/73 H 94 08/24/18 09:00 08/24/18 09:00 08/24/18 09:00 08/24/18 09:00 08/24/18 09:00 Oxygen Flow Rate (L/min) 2 Oxygen Delivery Method Room Air Weight: 150 lb 14.4 oz Body Mass Index (BMI) 23.6 Finger Stick Blood Glucose 98 Intake and Output for Last 24 Hours 08/22/18 08/23/18 08/24/18 23:59 23:59 23:59 Intake Total 375 / 375 120 / 120 Balance 375 / 375 120 / 120 General: Alert, Oriented x3, Cooperative, No apparent distress HEENT: Atraumatic, PERRLA, EOMI, Normocephalic Oral: Moist Mucosa Neck: Supple, No JVD, Negative Carotid Bruits Lungs: Clear to auscultation, Normal air movement, No rhonchi, No wheeze, No rales Cardiovascular: Regular rate, Regular Rhythm, Normal S1, Normal S2, No murmurs Abdomen: Bowel Sounds Present, Soft, Non Tender, Non-Distended, No Hepato- splenomegaly Extremities: No clubbing, No cyanosis, No edema, Capillary Refill Less than 3 Seconds Skin: No rashes, No breakdown Musculoskeletal: No Tenderness to Palpation of Joints or Extremities, - - right breast mastectomy Lymphatic: No Cervical, Supraclavicular, or Inguinal Adenopathy Neurological: Cranial nerves II-XII grossly intact, Neuro grossly intact Psych/Mental Status: Normal Affect, Appropriate, Alert and oriented to time, place, person, mood and affect Laboratory Results 08/23/18 09:24: B-Natriuretic Peptide 127.1 H 08/23/18 09:24: PT 23.0 H, INR 2.0, D-Dimer Quant (PE/DVT) 0.27 08/23/18 12:20: Troponin I 0.758 H* 08/23/18 15:40: Troponin I 1.570 H* 08/23/18 17:12: Troponin I 1.980 H* 08/23/18 20:07: Troponin I 2.180 H* 08/23/18 20:07: Magnesium 2.1 08/23/18 22:58: Troponin I 2.070 H* 08/24/18 04:58: Urine Color Yellow, Urine Clarity Clear, Urine pH 7.0, Ur Specific [place] 1.010, Urine Protein Negative, Urine Glucose (UA) Normal, Urine Ketones Negative, Urine Occult Blood Negative, Urine Nitrite Negative, Urine Bilirubin Negative, Urine Urobilinogen Normal, Ur Leukocyte Esterase Negative, Urine RBC 0 SEEN, Urine WBC 0-5 SEEN, Ur Squamous Epith Cells 0-5 SEEN, Urine Bacteria 0 SEEN, Urine Mucus 0 SEEN 08/24/18 05:00: WBC 5.3, RBC 4.50, Hgb 13.0, Hct 40.7, MCV 90.4, MCH 28.9, MCHC 31.9 L, RDW 13.2, RDW Differential 43.9, Plt Count 219, MPV 9.2, Immature Gran % (Auto) 0.000, Neut % (Auto) 47.1, Lymph % (Auto) 40.7, [place] % (Auto) 7.8, Eos % (Auto) 4.0, Baso % (Auto) 0.4, Absolute Neuts (auto) 2.5, Absolute Lymphs (auto) 2.14, Total Counted Not Reportable 08/24/18 05:00: Sodium 143, Potassium 4.1, Chloride 110 H, Carbon Dioxide 27.0, Anion Gap 6, BUN 11, Creatinine 0.67, Estim Creat Clear Calc 42.18, Est GFR (MDRD) Af Amer 108, Est GFR (MDRD) Non-Af 89, BUN/Creatinine Ratio 16.4, Glucose 100, Calcium 8.8 08/24/18 05:00: PT 22.8 H, INR 2.0, APTT 34.3 Current Medications Amlodipine Besylate (Norvasc) 2.5 mg PO QHS [facility] Last Admin: 08/23/18 21:18 Dose: 2.5 mg Aspirin (Aspirin, Baby) 81 mg PO QHS [facility] Last Admin: 08/24/18 05:55 Dose: 81 mg Atenolol (Tenormin (Beta Candace)) 50 mg PO QHS [facility] Last Admin: 08/23/18 21:18 Dose: 50 mg Atorvastatin Calcium (Lipitor) 40 mg PO QHS [facility] Last Admin: 08/23/18 21:18 Dose: 40 mg Clopidogrel Bisulfate (Plavix) 75 mg PO DAILY [facility] Sodium Chloride () 1,000 mls @ 0 mls/hr IV .Q0M [facility] Last Admin: 08/23/18 09:34 Dose: 150 mls/hr Levothyroxine Sodium (Synthroid) 88 mcg PO DAILY@0600 [facility] Last Admin: 08/24/18 05:51 Dose: 88 mcg Magnesium Hydroxide (Milk Of Magnesia) 30 ml PO DAILY PRN PRN PRN Reason: Constipation Nitroglycerin (Nitrostat) 0.4 mg SUBLINGUAL Q5M PRN PRN Reason: CARDIAC/CHEST PAIN Potassium Chloride (K-Dur) 10 meq PO DAILYCM [facility] Sodium Chloride () 5 - 15 ml IV UD PRN PRN Reason: SALINE FLUSH Last Admin: 08/24/18 06:01 Dose: 10 ml Warfarin Sodium (Coumadin (Pbkc)) 3 mg PO DAILY@1700 [facility] Medical Necessity - Tobacco Use Smoking Status: Former smoker Assessment/Plan 82-year-old admitted with a complaint of chest pain 1. NSTEMI * chest pain has resolved * troponin trended up and peaked at 2.18 * cardiology on board * on aspirin, plavix and atorvastatin * 2D echo pending * cardiology on board * will check A1C and lipid panel * 2. Hypertension: controlled. On amlodipine and atenolol 3. History of syncope s/p pacemaker placement: stable 5. Hypothyroidism; on synthroid 6.History of hypercoagulable state: on coumadin. INR today is 2. 7. History of breast ca s/p right mastectomy and adjuvant chemotherapy * stable. 8. History of episodic rectal bleeding: * EGD and colonoscopy done in 06/03 showed normal duodenum and normal stomach and esophagus; few fundic polyps in stomach which were biopsied; hiatal hernia, normal cecum, ascending, transverse and descending colon, moderate diverticular disease in sigmoid colon.SIgnificant external hemorrhoids * currently stable. * will monitor * DVT prophylaxis: on coumadin. Code Visit Inpatient E&M: 95271 Subs Hosp L3
--- NOTE | 2018-08-24 09:55 | CON.PCM_ITS ---
Problem List (1) Pacemaker Status: Acute (2) H/O cardiac catheterization Status: Chronic (3) History of TIA (transient ischemic attack) Status: Chronic (4) Benign essential hypertension Status: Chronic Reason for Consult Date of Consultation: 08/24/18 Reason for Consultation: Pacemaker, TIA, hypertension, previous smoker non-STEMI History of Present Illness: The patient is a 82 year old F, was fairly functional, nondiabetic, with hypertension, previous pacemaker placed in 2012, follows with Dr. Reid here locally, presumptive history of TIA and is on chronic Coumadin therapy at least for the last 2 years. She is a former smoker who quit around 20 years ago after a [id number] smoking history. The patient is fairly active and lives alone, and while she was doing her daily chores yesterday she developed midsternal chest pain, which was nonradiating with no associated shortness of breath but did have some nausea but no vomiting. When her symptoms did not improve she came to [facility] ER. Her EKG showed paced atrial rhythm with left anterior hemiblock, and baseline right bund le branch block. No acute changes were noted. Her initial troponin was 0.056, and peaked at 2.0. Patient was loaded with Plavix and her Coumadin was held. Her INR this morning is 2.0. In addition the patient reportedly had a catheterization several years ago prior to her pacemaker apparently was unable to go through the right radial, as well as the right femoral but she does not remember why. The patient has excellent pulses in her bilateral femoral arteries. 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 [] Past Medical History Allergies/Adverse Reactions: Allergies levofloxacin [From Levaquin] Allergy (Verified 10/20/17 13:07) Angioedema lisinopril Allergy (Verified 10/20/17 13:07) Swelling Penicillins Allergy (Verified 10/20/17 13:07) Itching Sulfa (Sulfonamide Antibiotics) Allergy (Verified 10/20/17 13:07) Angioedema Home Medications: Ambulatory Orders Medication Instructions Recorded Amlodipine [Norvasc] 2.5 mg PO QHS 08/20/13 Aspirin, Baby 81 mg PO QHS 08/20/13 Atorvastatin Calcium [Lipitor] 20 mg PO QHS 08/20/13 Levothyroxine [Synthroid] 88 mcg PO QHS 08/20/13 Warfarin Sodium 3 mg PO DAILY 12/11/16 Atenolol [Tenormin (beta alissa)] 50 mg PO QHS 05/20/17 Potassium Chloride [Klor-Con 10] 10 meq PO DAILY 05/26/17 Ferrous Sulfate [Iron] 325 mg PO DAILY 08/23/18 Past Medical History (Chronic Problems): Chronic Problems H/O cardiac catheterization (Chronic) History of TIA (transient ischemic attack) (Chronic) History of syncope (Chronic) Hypothyroidism (Chronic) History of breast cancer (Chronic) Benign essential hypertension (Chronic) Surgical History: - - Pacemaker placement, cardiac catheterization, loop recorder implantation, right mastectomy Psychiatric History: No pertinent psych hx HEL[employer] S[employer]ER History: No pertinent HEL[employer]WE[employer] history - *Family History Maternal History Items: No pertinent history Paternal History Items: No pertinent history Lives: Alone Smoking Status: Former smoker Alcohol: None Drugs: None Review of Systems - Review of Systems General: Denies: Fever, Night Sweats, Fatigue Cardiovascular: Reports: Chest Discomfort, Chest Discomfort at Rest. Denies: Shortness of Breath, Orthopnea, PND, Peripheral Edema, Palpitations, Lightheadedness, Dizziness, Near Syncope, Syncope Respiratory: Denies: Cough, Sputum Production, Hemoptysis Gastrointestinal: Denies: Hematemesis, Hematochezia, Melena Genitourinary: Denies: Dysuria, Hematuria Skin: Denies: Rash Subjectve: Patient resting comfortably, no acute distress. Objective: Vital Signs Temp Pulse Resp BP Pulse Ox 97.7 F L 60 16 153/73 H 94 08/24/18 09:00 08/24/18 09:00 08/24/18 09:00 08/24/18 09:00 08/24/18 09:00 Oxygen Flow Rate (L/min) 2 Oxygen Delivery Method Room Air Weight: 150 lb 14.4 oz Body Mass Index (BMI) 23.6 Finger Stick Blood Glucose 98 Intake and Output for Last 24 Hours 08/22/18 08/23/18 08/24/18 23:59 23:59 23:59 Intake Total 375 / 375 120 / 120 Balance 375 / 375 120 / 120 General: Awake, Alert, Oriented x 3 HEENT: PERRL, EOMI, Sclera Non Icteric Neck: Supple, Good ROM, No Lymph Node Enlargement Lungs: Clear to auscultation Cardiovascular: Regular Rhythm, Normal S1, Normal S2, No Murmurs, No Rubs, No Gallops Vascular: No Carotid Bruits, Normal Femoral Pulses, Normal Radial Pulses, Normal Dorsalis Pedal Pulse, Normal Posterior Tibial Pulses Abdomen: Bowel Sounds Present, Soft, Non Tender, No HSM, No Organomegaly Extremities: No Cyanosis, No Clubbing, No edema Neurological: No Focal Motor or Sensory Deficit 08/23/18 09:24: B-Natriuretic Peptide 127.1 H 08/23/18 09:24: PT 23.0 H, INR 2.0, D-Dimer Quant (PE/DVT) 0.27 08/23/18 12:20: Troponin I 0.758 H* 08/23/18 15:40: Troponin I 1.570 H* 08/23/18 17:12: Troponin I 1.980 H* 08/23/18 20:07: Troponin I 2.180 H* 08/23/18 20:07: Magnesium 2.1 08/23/18 22:58: Troponin I 2.070 H* 08/24/18 04:58: Urine Color Yellow, Urine Clarity Clear, Urine pH 7.0, Ur Specific [place] 1.010, Urine Protein Negative, Urine Glucose (UA) Normal, Urine Ketones Negative, Urine Occult Blood Negative, Urine Nitrite Negative, Urine Bilirubin Negative, Urine Urobilinogen Normal, Ur Leukocyte Esterase Negative, Urine RBC 0 SEEN, Urine WBC 0-5 SEEN 08/24/18 05:00: WBC 5.3, RBC 4.50, Hgb 13.0, Hct 40.7, MCV 90.4, MCH 28.9, MCHC 31.9 L, RDW 13.2, RDW Differential 43.9, Plt Count 219, MPV 9.2, Immature Gran % (Auto) 0.000, Neut % (Auto) 47.1, Lymph % (Auto) 40.7, [place] % (Auto) 7.8, Eos % (Auto) 4.0, Baso % (Auto) 0.4, Absolute Neuts (auto) 2.5, Total Counted Not Reportable 08/24/18 05:00: Sodium 143, Potassium 4.1, Chloride 110 H, Carbon Dioxide 27.0, Anion Gap 6, BUN 11, Creatinine 0.67, Est GFR (MDRD) Af Amer 108, Est GFR (MDRD) Non-Af 89, BUN/Creatinine Ratio 16.4, Glucose 100, Calcium 8.8 08/24/18 05:00: PT 22.8 H, INR 2.0, APTT 34.3 Rhythm: EKG: As above ECHO: Pending Stress Test: Cardiac Cath: Pending PCI: CT Surgery: Holter monitor: EPS: PPM: CXR: Chest CT Scan: Assessment/Plan 1. Unstable angina: The patient presents with new onset anginal symptoms, with associated chest pain, angina, nausea, with abnormal troponins peaking at 2.0. Patient did have a catheterization many years ago however we do not have those records. She reportedly was unable to gain access via the radial or right femoral reportedly due to mastectomy. Patient was loaded with 300 mg of Plavix and would recommend baby aspirin 81 mg daily, Plavix 75 mg a day, continue atenolol and nitroglycerin paste. We will need to wait to her INR decreases to at least 1.6 prior to catheterization via the right or left groin. She has excellent pulses bilaterally but does have a history of vasculitis which may have been the reason why they could not access her right femoral artery. In addition she will undergo a 2D echo with Doppler to document her LV function and valvular status as well as her pulmonary pressures. 2. Hyperlipidemia: Recommend obtaining a fasting lipid profile. Continue Lipitor. 3. Status post pacemaker: Patient status post pacemaker. We will need to obtain the records of Dr. Reid's office with respect to her pacemaker, previous catheterization. The patient reportedly has had no stents in the past. 4. TIA: As best I can tell the patient is on Coumadin for possible previous TIA as well as possibly for vasculitis. This will need to be held prior to her catheterization and can be resumed once it is been completed. 5. Thank you very much for the opportunity to participate in the cardiac care of your patient. Consultation time took place between 930 and 10 AM. Code Visit Inpatient E&M: 46686 Init Hosp L2
[2018-08-24 10:23] LABS: Cholesterol 139 mg/dL (200); High Density Lipoprotein 48 mg/dL; Triglycerides 102 mg/dL; Very Low Density Lipoprotein 20 mg/dL (5-40)
--- NOTE | 2018-08-24 10:52 | CASEMGMT ---
MARGARET FERGUSON assessment: Face to Face with patient for initial transition planning/care coordination assessment. MARGARET FERGUSON introduced self and role at [facility], pt voices understanding and consents to assessment at this time. Pt is lying in bed in no distress at this time. Pt is A/Ox4 at this time and answers all questions appropriately at this time. Care providers, pharmacy, and demographics verified/updated at this time. PCP: G[facility] Specialists: Lin cardio at [facility] but pt states she would like to switch to Dr. Covington here at [facility] Preferred Pharmacy: [facility] Insurance: MCR A/B, [place] rule Prescription Benefit: [facility] Living Will/HPOA: Pt states that she does have LW/HPOA and that Philip Avila, son is HPOA. Pt is aware that they are not currently on file at [facility] at this time. LNOK: Philip Avila, son; Kristin Wade, sister in law Living Arrangements: Pt states lives alone in 1st floor condo with no steps and pt states no concerns at home at this time. Pt states is independent with ADL's at home at this time. Transportation: Pt states drives self and states no transportation concerns at this time. DME/HHC: Pt states has a walker and shower chair at home. Pt states she did have a medical alert button but she cancelled it. Pt states no hx of HHC or SNF in the past. Pt states no concerns with going home at time of discharge. Pt states is retired. Pt states does not smoke or drink ETOH. Pt states no further concerns/needs at this time. CM to follow PT/OT and for any further discharge planning/needs. Advised pt to ask for CM if any further questions/concerns/needs arise, voices understanding. Plan: [place] MARGARET FERGUSON
[2018-08-24] MEDS: Clopidogrel Bisulfate 75 MG Tablet PO (10:59)
[2018-08-24 11:04] LABS: Hemoglobin A1c 6.2 % (4.2-6.3)
--- NOTE | 2018-08-24 14:48 | CASEMGMT ---
Patient has healthcare POA and LW. She is not able to bring in a copy at this time. Michaela OMALLEY MSW
[2018-08-24] MEDS: amLODIPine 2.5 MG Tablet PO (21:47)
[2018-08-24] MEDS: Atorvastatin Calcium 40 MG Tablet PO (21:47)
[2018-08-24] MEDS: Atenolol 50 MG Tablet PO (21:47)
[2018-08-25] VITALS (15 sets, daily range): BP systolic 110–147; BP diastolic 48–82; PULSE 60–100; RESP 14–18; TEMP 36.5–37; O2SAT 92–96
[2018-08-25 05:26] LABS: Absolute Neutrophil Count 2.7 X10^3/uL (2.0-7.7); Basophil# 0.03 X10^3/uL; Basophil% 0.5 % (0-1); Eosinophil# 0.23 X10^3/uL; Eosinophils% 4.1 % (0-5); Hematocrit 40.8 % (37-47); Hemoglobin 12.9 g/dl (12.0-15.0); Lymphocyte % 37.6 % (19-41); Mean Corp Hgb Conc 31.6 g/gl (32-36); Mean Corpuscular Hgb 28.9 pg (27.0-32.0); Mean Corpuscular Volume 91.5 fL (81-99); Mean Platelet Vol. 9.4 fl (6.2-12.0); Neutrophil # 2.72 X10^3/uL (2.7-7.7); Neutrophil % 48.8 % (47-70); Platelet Count 203 K/mm3 (150-450); RBC Distribution Width CV 13.4 % (11.6-14.6); RBC Distribution Width SD 44.5 fl (35.1-43.9); Red Blood Count 4.46 M/mm3 (4.2-5.4); White Blood Count 5.6 K/mm3 (4.4-11.0)
[2018-08-25 05:38] LABS: POSITIVE COUNT NO; POSITIVE DIFFERENTIAL NO; POSITIVE MORPHOLOGY NO
[2018-08-25 05:43] LABS: International Normalized Ratio 1.4
[2018-08-25] MEDS: Clopidogrel Bisulfate 75 MG Tablet PO (05:43)
[2018-08-25 05:44] LABS: Partial Thromboplast Time 29.7 Seconds (24.1-36.2)
[2018-08-25] MEDS: Levothyroxine 88 MCG Tablet PO (05:44)
[2018-08-25] MEDS: Aspirin 81 MG TAB.CHEW PO (05:44)
[2018-08-25] MEDS: DiphenhydrAMINE 25 MG Capsule 50 MG PO (05:44)
[2018-08-25] MEDS: 0.9% Normal Saline 1,000 ML 15 ML IV (05:45)
[2018-08-25 05:48] LABS: Anion Gap 7 (5-15); BUN 15 mg/dL (7-18); BUN/Creat Ratio 21.3 RATIO (10-20); Calcium,Total 8.5 mg/dL (8.5-10.1); Chloride 110 mmol/L (98-107); EST Glomerular Filtration Rate 84 mL/min (>60); Est Glom Filt Rate - Afr Amer 102 mL/min (>60); Estimated Creatinine Clearance 42.18 ml/min; Glucose 98 mg/dL (74-106); Potassium 4.1 mmol/L (3.5-5.1); Sodium Level 144 mmol/L (136-145)
--- NOTE | 2018-08-25 05:55 | EKG12_ITS ---
Test Reason : MORNING EKG Blood Pressure : / mmHG Vent. Rate : 060 BPM Atrial Rate : 060 BPM P-R Int : 192 ms QRS Dur : 122 ms QT Int : 430 ms P-R-T Axes : 000 -65 -33 degrees QTc Int : 430 ms Atrial-paced rhythm Right bundle branch block Left anterior fascicular block Bifascicular block Abnormal ECG Confirmed by DONNY CRAIG, KLEVER ([id number]), book editor MELISSA RANDALL ([id number]) on 08/27/2018 10:49:32 AM Referred By: ALEXI Confirmed By:KLEVER HINES MD
--- NOTE | 2018-08-25 07:23 | NURSING ---
Called report to Postulant at this time - Patient ready for heart cath per HS RN
--- NOTE | 2018-08-25 09:03 | CL.D_ITS ---
Patient Name: LUCRETIA LEAL Study Date: 08/25/2018 Performing: Earl Covington MD Ht: 67 inches 170 cm : 1935 Wt: 150.1 lbs 68 kg Age: 82 Gender: female BSA: 1.79 PROCEDURE(S) PERFORMED [id number]-[id number]/COR/LV CLINICAL PROFILE AND INDICATIONS Indications: ACS > 24 hrs, New Onset Angina <= 2 months, Suspected CAD, LV Dysfunction Heart Failure: NYHA Class: 1, Newly Diagnosed: Yes, Heart Failure Type: Systolic Stress/Imaging Stress/Image Study Performed: No Angina Classification Anginal Classification w/in 2 Weeks: CCS IV Comorbidities/Risk Factors: Hypertension Dyslipidemia CONCLUSIONS Normal coronary arteries Segmented LV systolic dysfunction- Mild RECOMMENDATIONS Management as per referring Plush Dresser Add imdur 30mg po qd for HTN and 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 Manual sheath removal. DESCRIPTION OF PROCEDURE The patient arrived to the procedure lab. The risks and benefits of the procedure as well as a full d escription of our services here and current unavailability of surgical backup were fully explained to the patient and/or their significant other prior to the catheterization. The Timeout was completed, verifying the correct patient and procedure. The patient's procedural site was prepped and draped in the usual fashion. Local anesthetic was given subcutaneously to right groin region with Lidocaine 2%. Using a modified Seldinger technique, arterial access was obtained via the right femoral artery, a 4 Fr sheath was inserted Left Coronary Artery selective angiography was performed in multiple views us ing a 4 Fr. JL5 catheter. Right Coronary Artery selective angiography was then performed in multiple views using a 4 Fr. 3DRC catheter. Left Ventriculography was performed in SANTANA projection using a 4 Fr . Pigtail catheter. LV to AO pullback pressures were then recorded.The arterial sheath was exchange to a 4 maori 11cm, sutured in place and capped CORONARY ANGIOGRAPHY DOMINANCE: Left Dominant LEFT HEART ASSESSMENT Left Ventricular Ejection Fraction: by LV Gram 50 % Apical Akinesis Depressed Left Ventricular systolic function LEFT MAIN: Angiographically normal LEFT ANTERIOR DECENDING ARTERY: Angiographically normal CIRCUMFLEX ARTERY: Angiographically normal RIGHT CORONARY ARTERY: Angiographically normal COMPLICATIONS No Complications PROCEDURE MEDICATIONS Versed 1 mg IV Oxygen: 2 L/min via nasal cannula SUMMARY OF HEMODYNAMIC DATA Time AIR REST ECG 07:47:54 AO 169/91 (123) SA 08:46:48 LV 170/-6, 10 08:51:12 LV 172/-13, 5 08:51:18 LVp 179/-12, 5 08:51:25 AOp 177/76 (117) 08:51:30 Signed By Earl Covington MD On 08/25/2018 09:02:34 Earl Covington MD
--- NOTE | 2018-08-25 11:31 | DCINST_ITS ---
- Discharge Diagnoses Current Active Problems: Current Active and Chronic Problems Pacemaker (Acute) You will use the following diet at home:: Cardiac Your food should be the consistency of: Regular Your liquids should be the consistency of: Regular/Thin Discharge Activity: Return to Normal Activity Weight Bearing Status: Weight bearing as tolerated Call your doctor if you observe: Shortness of breath, Fainting spells, Swelling in the ankles, Chest pain Instructions: Symptoms of a Heart Attack, Understanding Coronary Artery Disease (CAD) Additional Instructions: ASPIRIN HAS BEEN DISCONTINUED. TO TAKE PLAVIX FOR 6 MONTHS. Allergies/Adverse Reactions: Allergies levofloxacin [From Levaquin] Allergy (Verified 10/20/17 13:07) Angioedema lisinopril Allergy (Verified 10/20/17 13:07) Swelling Penicillins Allergy (Verified 10/20/17 13:07) Itching Sulfa (Sulfonamide Antibiotics) Allergy (Verified 10/20/17 13:07) Angioedema Medications to take at Discharge Amlodipine [Norvasc] 2.5 mg PO QHS 08/20/13 Atorvastatin Calcium [Lipitor] 20 mg PO QHS 08/20/13 Levothyroxine [Synthroid] 88 mcg PO QHS 08/20/13 Warfarin Sodium 3 mg PO DAILY 12/11/16 Atenolol [Tenormin (beta alissa)] 50 mg PO QHS 05/20/17 Potassium Chloride [Klor-Con 10] 10 meq PO DAILY 05/26/17 Ferrous Sulfate [Iron] 325 mg PO DAILY 08/23/18 Clopidogrel Bisulfate [Plavix] 75 mg PO DAILY #30 tablet 08/25/18 Isosorbide Mononitrate [Imdur] 30 mg PO DAILY #30 tablet 08/25/18 The following prescriptions were given: Clopidogrel Bisulfate [Plavix] 75 mg PO DAILY #30 tablet Isosorbide Mononitrate [Imdur] 30 mg PO DAILY #30 tablet Primary Care Physician: Elmo Burdick DO [Primary Care Provider] - Please follow up with your Primary Care Physician in: ONE WEEK Test Results: Test results from this visit will be discussed in further detail at your follow- up appointment, if applicable. Please Follow Up With: Earl Covington MD When: 1 WEEK Proposed Discharge Date: 08/25/18
--- NOTE | 2018-08-25 11:31 | PCM.DC.SUM ---
Discharge Date and Diagnosis - Problem List Patient Problems: Active and Suspected Problems Pacemaker (Acute) Date of Admission: 08/23/18 Date of Discharge: 08/25/18 - Primary Discharge Diagnosis Active and Suspected Problems Pacemaker (Acute) - Secondary Discharge Diagnosis Chronic Problems H/O cardiac catheterization (Chronic 08/25/18) Normal coronaries per cath 08/25/[address] Covington, [facility] History of TIA (transient ischemic attack) (Chronic) History of syncope (Chronic) Hypothyroidism (Chronic) History of breast cancer (Chronic) Benign essential hypertension (Chronic) Hospital Course and Treatment Imaging Results: Diagnostic Data Chest X-Ray 08/23/18 09:30 IMPRESSION: Stable, nonacute portable x-ray examination of the chest. Electronically Signed: Issa Bustos MD at 9:56 EST , Service support , cardiology- Dr Covington Operations: None Procedures: 2-D Echocardiogram, Cardiac catheterization Summary of Care Provided: The patient is an 82 year old F with a PMH as listed. She was admitted with a complaint of chest pain which started on morning of admission. Pain was retrosternal, cramping and associated with increasd sweating. CXR showed no acute cardiopulmonary process. Troponin was initially 0.046 and EKG showed no acute ST changes. BNP was 127.1. She was admitted for chest pain to rule out ACS. Troponin subsequently trended up and peaked at around 2. She was therefore managed for non-STEMI. Cardiology was consulted and she was put on aspirin, Plavix and statin as well as a beta-candace. She had a 2D echocardiogram which showed normal left ventricular size and systolic function with EF of 55% in stage I diastolic dysfunction and no regional wall motion abnormalities noted. ICD leads with identified in the right ventricle. She had a cardiac catheterization which showed normal coronary arteries and segmental left ventricular systolic dysfunction which is mild. She was discharged home on 08/25/2018. Aspirin was stopped and she was continued on Plavix after discussing concerns of possible bleeding with patient being on triple antiplatelet and anticoagulants with residence counselor. She is to continue Plavix for 6 months. She is also to continue her Coumadin. She was given a prescription for p.o. Imdur. She is follow-up with her primary care doctor and cardiology. Patient seen and examined prior to discharge. She felt well and had no complaints. 12 point review of systems was negative. Labs and vitals reviewed. Home medications reviewed and reconciled. o/e: Vital Signs Height 5 ft 7 in Weight: 150 lb 14.4 oz Weight in Pounds 150.9 lbs Pulse Ox 93 Temperature 98.1 F Pulse Rate 100 Respiratory Rate 14 Blood Pressure 142/82 Blood Pressure Position Semi-Fowlers [] General: Alert, Oriented x3, Cooperative, No apparent distress HEENT: Atraumatic, PERRLA, EOMI, Normocephalic Oral: Moist Mucosa Neck: Supple, No JVD, Negative Carotid Bruits Lungs: Clear to auscultation, Normal air movement, No rhonchi, No wheeze, No rales Cardiovascular: Regular rate, Regular Rhythm, Normal S1, Normal S2, No murmurs Abdomen: Bowel Sounds Present, Soft, Non Tender, Non-Distended, No Hepato-splenomegaly Extremities: No clubbing, No cyanosis, No edema, Capillary Refill Less than 3 Seconds; right groin dressing has no tenderness or redness or swelling; clean dressing in place over cath site Skin: No rashes, No breakdown Musculoskeletal: No Tenderness to Palpation of Joints or Extremities, - - right breast mastectomy Lymphatic: No Cervical, Supraclavicular, or Inguinal Adenopathy Neurological: Cranial nerves II-XII grossly intact, Neuro grossly intact Psych/Mental Status: Normal Affect, Appropriate, Alert and oriented to time, place, person, mood and affect\ Plan as described above. Patient Problems: Active and Suspected Problems Pacemaker (Acute) - Physical Exam Vital Signs Temp Pulse Resp BP Pulse Ox 98.1 F 100 14 142/82 H 93 08/25/18 05:42 08/25/18 07:00 08/25/18 05:42 08/25/18 05:42 08/25/18 07:20 Oxygen Flow Rate (L/min) 2 Oxygen Delivery Method Room Air Weight: 150 lb 14.4 oz Body Mass Index (BMI) 23.6 Finger Stick Blood Glucose 98 Intake and Output for Last 24 Hours 08/23/18 08/24/18 08/25/18 23:59 23:59 23:59 Intake Total 375 / 375 1040 / 1040 Balance 375 / 375 1040 / 1040 Laboratory Tests Past 24 Hrs 08/25/18 08/25/18 08/25/18 05:10 05:10 05:10 WBC 5.6 RBC 4.46 Hgb 12.9 Hct 40.8 MCV 91.5 MCH 28.9 MCHC 31.6 L RDW 13.4 RDW Differential 44.5 H Plt Count 203 MPV 9.4 Immature Gran % (Auto) 0.000 Neut % (Auto) 48.8 Lymph % (Auto) 37.6 [place] % (Auto) 9.0 Eos % (Auto) 4.1 Baso % (Auto) 0.5 Absolute Neuts (auto) 2.7 Absolute Lymphs (auto) 2.10 Total Counted Not Reportable PT 17.0 H INR 1.4 APTT 29.7 Sodium 144 Potassium 4.1 Chloride 110 H Carbon Dioxide 27.0 Anion Gap 7 BUN 15 Creatinine 0.70 Estim Creat Clear Calc 42.18 Est GFR (MDRD) Af Amer 102 Est GFR (MDRD) Non-Af 84 BUN/Creatinine Ratio 21.3 H Glucose 98 Calcium 8.5 Interpretation Summary Normal LV size. Left ventricular systolic function is normal. The estimated ejection fraction is 55 %. Stage 1 diastolic dysfunction. Contrast injection was performed. Discharge Diet: Low fat/ Low Cholesterol Discharge Activity: Return to Normal Activity Weight Bearing Status: Weight bearing as tolerated Call your doctor if you observe: Shortness of breath, Fainting spells, Swelling in the ankles, Chest pain Home Medications: Medications to take at Discharge Amlodipine [Norvasc] 2.5 mg PO QHS 08/20/13 Atorvastatin Calcium [Lipitor] 20 mg PO QHS 08/20/13 Levothyroxine [Synthroid] 88 mcg PO QHS 08/20/13 Warfarin Sodium 3 mg PO DAILY 12/11/16 Atenolol [Tenormin (beta candace)] 50 mg PO QHS 05/20/17 Potassium Chloride [Klor-Con 10] 10 meq PO DAILY 05/26/17 Ferrous Sulfate [Iron] 325 mg PO DAILY 08/23/18 Clopidogrel Bisulfate [Plavix] 75 mg PO DAILY #30 tablet 08/25/18 Isosorbide Mononitrate [Imdur] 30 mg PO DAILY #30 tablet 08/25/18 Following Prescrptions Were Given to Patient: Clopidogrel Bisulfate [Plavix] 75 mg PO DAILY #30 tablet Isosorbide Mononitrate [Imdur] 30 mg PO DAILY #30 tablet Primary Care Physician: Elmo Burdick DO [Primary Care Provider] - Please follow up with your Primary Care Physician in: ONE WEEK Please Follow Up With: Earl Covington MD When: 1 WEEK Patient Instructions: Symptoms of a Heart Attack, Understanding Coronary Artery Disease (CAD) Disposition: Home Minutes spent on discharge:: 35 Patient Condition:: Stable Medical Necessity - Tobacco Use Smoking Status: Former smoker Meaningful Use Info Meaningful Use Diagnoses (Choose all that apply): AMI - AMI Aspirin given w/in 24hrs of arrival?: Yes ASA at discharge?: No Reason ASA not ordered:: Coumadin rx at discharge Statins at discharge?: Yes Darius/ARB at discharge?: No Reason Darius/ARB not ordered:: Not indicated Beta Candace at discharge?: Yes Done w/ Acute OH measure.: Yes Code Visit Inpatient E&M: 95175 Disch Hosp
[2018-08-25] MEDS: Isosorbide Mononitrate 30 MG Tablet PO (12:31)
== END 2018-08-25 14:58 | disposition home or self-care (01) | DRG 281 ==
LOC: ED 11:07 → PCU 11:14
PROVIDERS: Hospitalist; Internal Medicine Cardiovascular Disease; Admitting Provider Student in an Organized Health Care Education/Training Program; Emergency Provider Emergency Medicine; Family Provider Student in an Organized Health Care Education/Training Program; PCP Student in an Organized Health Care Education/Training Program; Visit Provider Student in an Organized Health Care Education/Training Program
DX: I21.4 Non-ST elevation (NSTEMI) myocardial infarction (principal); I51.81 Takotsubo syndrome; I10 Essential (primary) hypertension; E78.5 Hyperlipidemia, unspecified; Z66 Do not resuscitate; E03.9 Hypothyroidism, unspecified; Z85.3 Personal history of malignant neoplasm of breast; Z86.73 Personal history of transient ischemic attack (TIA), and cerebral infarction without residual deficits; Z95.0 Presence of cardiac pacemaker; Z79.01 Long term (current) use of anticoagulants; Z87.891 Personal history of nicotine dependence; Z90.11 Acquired absence of right breast and nipple; Z92.21 Personal history of antineoplastic chemotherapy; K64.4 Residual hemorrhoidal skin tags; K44.9 Diaphragmatic hernia without obstruction or gangrene; K57.30 Diverticulosis of large intestine without perforation or abscess without bleeding
CPT/HCPCS: 36415; 71045; 80048; 80061; 81001; 83036; 83735; 83880; 84484; 85025; 85379; 85610; 85730; 93005; 93306; 93458; 99152; 99285; J7030; Q9957; A4216; C1769; C1894; C8929; Q9967

== ENCOUNTER 2018-08-25 20:39 | Inpatient (IN) | payer MEDICARE, OTHER, SELFPAY ==
[2018-08-23 13:03] VITALS: BMI 23.6
[2018-08-25 20:41] VITALS: BP 91/44; PULSE 69; RESP 19; TEMP 36.7; O2SAT 90; BMI 23.3
[2018-08-25 21:37] VITALS: BP 70/40; BP 94/54; BP 99/54; PULSE 63; PULSE 73; PULSE 80; PULSE 91; RESP 16; TEMP 36.3; O2SAT 92
[2018-08-25] MEDS: 0.9% Normal Saline 1,000 ML 1000 ML IV (21:57)
[2018-08-25 22:03] VITALS: BP 99/54; PULSE 60; PULSE 63; RESP 16; RESP 20; TEMP 36.3; O2SAT 95
[2018-08-25 22:14] LABS: Absolute Lymphocyte Count 1.75 X10^3/ul (0.83-4.51); Absolute Neutrophil Count 6.1 X10^3/uL (2.0-7.7); Basophil# 0.02 X10^3/uL; Basophil% 0.2 % (0-1); Eosinophil# 0.03 X10^3/uL; Eosinophils% 0.4 % (0-5); Hematocrit 40.2 % (37-47); Hemoglobin 12.6 g/dl (12.0-15.0); Lymphocyte # 1.75 X10^3/ul (4.0); Lymphocyte % 20.7 % (19-41); Mean Corp Hgb Conc 31.3 g/gl (32-36); Mean Corpuscular Volume 92.4 fL (81-99); Mean Platelet Vol. 9.5 fl (6.2-12.0); Monocyte# 0.49 X10^3/uL; Monocyte% 5.8 % (0-10); Neutrophil # 6.14 X10^3/uL (2.7-7.7); Neutrophil % 72.8 % (47-70); Platelet Count 253 K/mm3 (150-450); RBC Distribution Width CV 13.4 % (11.6-14.6); RBC Distribution Width SD 45.3 fl (35.1-43.9); Red Blood Count 4.35 M/mm3 (4.2-5.4); White Blood Count 8.4 K/mm3 (4.4-11.0)
--- NOTE | 2018-08-25 22:14 | RAD_ITS ---
STUDY: X-RAY CHEST REASON FOR EXAM: Female, 82 years old. Dizziness. Shortness of breath. TECHNIQUE: PA and lateral views of the chest. COMPARISON: August 23, 2018 FINDINGS: Pacemaker device on the left is stable. There are monitoring devices. There is hyperinflation of the lungs consistent with chronic obstructive lung disease (COPD). There is no demonstrated pleural abnormality. Normal size heart. Normal mediastinum and roc. Normal visualized pulmonary arteries. There is atherosclerotic calcification of the aortic arch with tortuosity. Normal visualized thoracic spine. Normal visualized ribs, clavicles, and shoulders. There are surgical clips in the right axillary region. There is no demonstrated abnormality of the visualized soft tissue structures of the upper abdomen. RAD/Chest PA and Lateral IMPRESSION: Degenerative changes, as described above. No demonstrated acute cardiopulmonary process. Electronically Signed: Samir Cowart MD at 23:14 EST , Service support ,
[2018-08-25 22:15] LABS: POSITIVE COUNT NO; POSITIVE DIFFERENTIAL NO; POSITIVE MORPHOLOGY NO
[2018-08-25 22:17] LABS: International Normalized Ratio 1.3; Prothrombin Time (Protime)PT. 15.8 SECONDS (11.7-14.9)
[2018-08-25 22:18] LABS: Partial Thromboplast Time 27.2 Seconds (24.1-36.2)
[2018-08-25 22:35] LABS: ALB/GLOB Ratio 0.8 RATIO (0.9-2.4); AST(SGOT) 17 U/L (15-37); Alanine Aminotransfer ALT/SGPT 19 U/L (13-56); Albumin, Serum 3.1 g/dL (3.2-5.0); Alkaline Phosphatase 95 U/L (45-117); Anion Gap 8 (5-15); BUN 24 mg/dL (7-18); BUN/Creat Ratio 20.9 RATIO (10-20); Calcium,Total 8.7 mg/dL (8.5-10.1); Chloride 110 mmol/L (98-107); Creatinine, Serum 1.15 mg/dL (0.55-1.02); EST Glomerular Filtration Rate 48 mL/min (>60); Est Glom Filt Rate - Afr Amer 58 mL/min (>60); Estimated Creatinine Clearance 36.68 ml/min; Globulin 3.8 g/dL (2.2-4.2); Glucose 129 mg/dL (74-106); Potassium 4.9 mmol/L (3.5-5.1); Protein, Total 6.9 g/dL (6.4-8.2); Sodium Level 142 mmol/L (136-145)
[2018-08-25 23:24] VITALS: O2SAT 90
--- NOTE | 2018-08-25 23:46 | HP.PCM_ITS ---
Problem List (1) Acute GI bleeding Status: Acute History of Present Illness Date of Admission: 08/25/18 Chief Complaint: BRPR The patient is a 82 year old F with a significant history of hypertension; permanent pacemaker; and hypothyroidism who was admitted on 08/23/2018 and discharged on 09/04/2018 after presenting with chest pain and elevated troponin with subsequent heart catheterization that showed normal coronaries and stage I diastolic dysfunction presenting the same day after discharge with bright red blood per rectum. She reported that the bright red blood per rectum was a one-time episode. Associated symptoms is dizziness. Patient was not able to explain whether her dizziness was lightheadedness or a spinning sensation. Emergency department doctor reported that tube machine operator helper called stating that patient will be coming to the emergency. At emergency department patient was found to have symptomatic orthostatic hypotension per symptoms and per blood pressure measurements. Patient reported that while at the emergency department she had mild dull lower abdominal pain. Patient reports that every 3 months or so she has bright red blood per rectum and she had a colonoscopy with Dr. Oseguera not too long ago. Patient reported that so far the source of the bleeding is unknown so she has been placed on iron supplements. Patient is on Coumadin. She reports that she takes Coumadin because of her pacemaker. However her Coumadin was held because of cardiac catheterization and she was supposed to resume her Coumadin on 08/26/2018. After the cardiac cardiac catheterization patient was started on Plavix. She reports that the last time she took her aspirin was about 4 days ago.. At emergency department her INR was subtherapeutic. Emergency department doctor reported that patient blood pressure dropped to 70/40 with standing. Patient received normal saline bolus at emergency department. Emergency department doctor reported that rectal examination showed external hemorrhoids; and some blood around her anus. Past Medical History Past Medical History (Chronic Problems): Chronic Problems H/O cardiac catheterization (Chronic 08/25/18) Normal coronaries per cath 08/25/[address] Covington [facility] History of TIA (transient ischemic attack) (Chronic) History of syncope (Chronic) Hypothyroidism (Chronic) History of breast cancer (Chronic) Benign essential hypertension (Chronic) Allergies levofloxacin [From Levaquin] Allergy (Verified 10/20/17 13:07) Angioedema lisinopril Allergy (Verified 10/20/17 13:07) Swelling Penicillins Allergy (Verified 10/20/17 13:07) Itching Sulfa (Sulfonamide Antibiotics) Allergy (Verified 10/20/17 13:07) Angioedema Home Medications: Ambulatory Orders Medication Instructions Recorded Amlodipine [Norvasc] 2.5 mg PO QHS 08/20/13 Atorvastatin Calcium [Lipitor] 20 mg PO QHS 08/20/13 Levothyroxine [Synthroid] 88 mcg PO DAILY 08/20/13 Atenolol [Tenormin (beta alissa)] 50 mg PO QHS 05/20/17 Potassium Chloride [Klor-Con 10] 10 meq PO DAILY 05/26/17 Ferrous Sulfate [Iron] 325 mg PO DAILY 08/23/18 Clopidogrel Bisulfate [Plavix] 75 mg PO DAILY 08/26/18 Isosorbide Mononitrate [Imdur] 30 mg PO DAILY 08/26/18 Surgical History: mastectomy, - - Pacemaker placement, cardiac catheterization, loop recorder implantation, right mastectomy; and plate in left arm. 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 Denies: Nausea, Vomiting Genitourinary: Denies: Dysuria Musculoskeletal: Denies: Joint Pain, Joint Tenderness Skin: Denies: Rash, Wounds Neurological: Denies: Numbness, Tingling, Focal weakness Psychiatric: Denies: Anxiety, Depression, Homicidal Ideations, Suicidal Ideations Hematologic/ Lymphatic: Denies: Easy Bruising, Easy Bleeding VTE Information - Inpt Only VTE Present on Admission: No VTE Mechan Device Prophylaxis: SCD's VTE Pharm Prophylaxis ordered?: No Patient Problems: Active and Suspected Problems Lower gastrointestinal bleeding (Acute) Orthostatic hypotension (Acute) Acute GI bleeding (Acute) - Physical Exam General: Alert, Oriented x3, Cooperative HEENT: Atraumatic, PERRLA, EOMI, Normocephalic Neck: Supple, No JVD, Negative Carotid Bruits Lungs: Clear to auscultation, Normal air movement Cardiovascular: Regular rate, No murmurs Abdomen: Bowel Sounds Present, Soft, Non Tender Extremities: No edema, Capillary Refill Less than 3 Seconds Skin: No rashes, No breakdown Musculoskeletal: No Tenderness to Palpation of Joints or Extremities Neurological: Cranial nerves II-XII grossly intact, Neuro grossly intact Psych/Mental Status: Normal Affect, Appropriate Vital Signs Temp Pulse Resp BP Pulse Ox 97.4 F L 63 20 H 99/54 L 90 08/25/18 22:03 08/25/18 22:03 08/25/18 22:03 08/25/18 22:03 08/25/18 23:24 Oxygen Flow Rate (L/min) 2 Oxygen Delivery Method Room Air Weight: 67.585 kg Body Mass Index (BMI) 23.3 Finger Stick Blood Glucose 98 Laboratory Tests Past 24 Hrs 08/25/18 08/25/18 08/25/18 20:55 20:55 20:55 WBC 8.4 RBC 4.35 Hgb 12.6 Hct 40.2 MCV 92.4 MCH 29.0 MCHC 31.3 L RDW 13.4 RDW Differential 45.3 H Plt Count 253 MPV 9.5 Immature Gran % (Auto) 0.100 Neut % (Auto) 72.8 H Lymph % (Auto) 20.7 [place] % (Auto) 5.8 Eos % (Auto) 0.4 Baso % (Auto) 0.2 Absolute Neuts (auto) 6.1 Absolute Lymphs (auto) 1.75 Total Counted Not Reportable PT 15.8 H INR 1.3 APTT 27.2 Sodium 142 Potassium 4.9 Chloride 110 H Carbon Dioxide 24.0 Anion Gap 8 BUN 24 H Creatinine 1.15 H Estim Creat Clear Calc 36.68 Est GFR (MDRD) Af Amer 58 L Est GFR (MDRD) Non-Af 48 L BUN/Creatinine Ratio 20.9 H Glucose 129 H Calcium 8.7 Total Bilirubin 0.30 AST 17 ALT 19 Alkaline Phosphatase 95 Troponin I 0.644 H* Total Protein 6.9 Albumin 3.1 L Globulin 3.8 Albumin/Globulin Ratio 0.8 L Assessment/Plan All Active Problems Lower gastrointestinal bleeding (Acute) Orthostatic hypotension (Acute) Acute GI bleeding (Acute) Pacemaker (Acute) The patient is a 82 year old F with a significant history of hypertension; permanent pacemaker; and hypothyroidism who was admitted on 08/23/2018 and discharged on 09/04/2018 after presenting with chest pain and elevated troponin with subsequent heart catheterization that showed normal coronaries and stage I diastolic dysfunction presenting the same day after discharge with bright red blood per rectum; dizziness and found to have symptomatic orthostatic hypotension consistent with acute GI bleed. Acute GI bleed Likely lower GI bleed from diverticular bleed; or angiodysplasia However, can not rule out acute upper GI bleed because of symptomatic orthostatic hypertension; and elevated BUN. Review of records shows that her current BUN is almost doubled from previous. Unlikely from hemorrhoidal bleed because of her orthostatic hypotension. Patient received IV fluid bolus at emergency department. We will continue patient on gentle IV hydration with lactated Ringer's since her chloride is elevated. Will check H&H every 6 hours and if her hemoglobin is less than 8 will transfuse; or if with persistent bleeding and hemoglobin is less than 9 will transfuse. We will give Protonix IV. General surgery has been consulted. Consider discussing with cardiology since patient had heart cath on 08/25/2018. We will hold all anti-hypertensive medication since her blood pressure is labile at this time with systolic blood pressure of 70/40. We will hold off Coumadin and Plavix. Will keep npo just in case patient requires any intervention. Hyperlipidemia Lipitor continued Hypothyroidism Synthroid continued. DVT prophylaxis SCD. Code Visit Inpatient E&M: 35829 Init Hosp L3
[2018-08-26] VITALS (13 sets, daily range): BP systolic 121–143; BP diastolic 68–83; PULSE 62–90; RESP 16–18; TEMP 36.5–37; O2SAT 92–94; BMI 23.5
--- NOTE | 2018-08-26 00:39 | ED.VISSUMM ---
- ER Visit Summary Date of Service: 08/26/18 Chief Complaint: Lower gastrointestinal bleeding History of Present Illness: The patient is a 82 F who presents with bright red blood per rectum that began tonight. Patient was recently discharged from the hospital earlier today after a cardiac catheterization. Patient states she had a bowel movement that was bright red blood and clots in the toilet. Patient states she felt dizzy when she stood up. Family noticed that her blood pressure and oxygen saturation was low tonight. Patient denies any abdominal pain. Patient denies any nausea or vomiting. Patient denies any fevers. Patient admits to chronic chills but denies any shaking chills. Patient denies any chest pain or palpitations. Patient denies any shortness of breath. Physical Examination: Vital signs showed blood pressure of 91/44. Oxygen saturation was 90% on room air. Patient is afebrile. Patient is in no acute distress. Oral mucosa is pink and moist. Pupils are equal, round, and reactive to light bilaterally. Extraocular muscles are intact. Conjunctiva is clear. Neck is supple. Trachea is midline. There is no JVD noted. Heart was regular rate and rhythm. Lungs are clear and equal bilateral. Abdomen is soft. Bowel sounds are normal. There is no tenderness. There is no guarding. Rectal exam showed external hemorrhoids with dried blood on the anus. There is no active bleeding. There is minimal stool but it is Hemoccult positive. Cranial nerves II through XII are intact. There are no focal motor or sensory deficits noted. Test Results: PA and lateral chest x-ray showed degenerative changes but no acute cardiopulmonary process. CBC was normal. Hemoglobin was essentially unchanged. Basic metabolic profile was essentially within normal limits. INR was 1.3. Troponin was 0.644 however prior results were 2.0. Emergency Department Course and Treatment: Orthostatic vital signs were obtained and patient's blood pressure dropped to 70/40 with standing. Patient did feel dizzy with this. Patient was given IV fluids. Case was discussed with Dr. Oseguera he is willing to keep the patient here. Case was discussed with Dr. Rivera. He will admit the patient to his service. Patient and family understood and were agreeable with the plan. All questions were answered. Disposition: Admit to hospital Impression: Lower gastrointestinal bleeding This note was generated with [employer] dictation software. It may contain incorrect words, spelling, and punctuation that were not noted in review of the chart prior to signing ED Disposition - Plan for ED Patient: Disposition: Acute Care Hospital [facility] Chief Complaint: Dizziness Diagnosis: Lower gastrointestinal bleeding, Orthostatic hypotension Referrals: Elmo Burdick DO [Primary Care Provider] -
--- NOTE | 2018-08-26 00:47 | ED.DCSUM_ITS ---
- ER Visit Summary Date of Service: 08/26/18 Chief Complaint: Lower gastrointestinal bleeding History of Present Illness: The patient is a 82 F who presents with bright red blood per rectum that began tonight. Patient was recently discharged from the hospital earlier today after a cardiac catheterization. Patient states she had a bowel movement that was bright red blood and clots in the toilet. Patient states she felt dizzy when she stood up. Family noticed that her blood pressure and oxygen saturation was low tonight. Patient denies any abdominal pain. Patient denies any nausea or vomiting. Patient denies any fevers. Patient admits to chronic chills but denies any shaking chills. Patient denies any chest pain or palpitations. Patient denies any shortness of breath. Physical Examination: Vital signs showed blood pressure of 91/44. Oxygen saturation was 90% on room air. Patient is afebrile. Patient is in no acute distress. Oral mucosa is pink and moist. Pupils are equal, round, and reactive to light bilaterally. Extraocular muscles are intact. Conjunctiva is clear. Neck is supple. Trachea is midline. There is no JVD noted. Heart was regular rate and rhythm. Lungs are clear and equal bilateral. Abdomen is soft. Bowel sounds are normal. There is no tenderness. There is no guarding. Rectal exam showed external hemorrhoids with dried blood on the anus. There is no active bleeding. There is minimal stool but it is Hemoccult positive. Cranial nerves II through XII are intact. There are no focal motor or sensory deficits noted. Test Results: PA and lateral chest x-ray showed degenerative changes but no acute cardiopulmonary process. CBC was normal. Hemoglobin was essentially unchanged. Basic metabolic profile was essentially within normal limits. INR was 1.3. Troponin was 0.644 however prior results were 2.0. Emergency Department Course and Treatment: Orthostatic vital signs were obtained and patient's blood pressure dropped to 70/40 with standing. Patient did feel dizzy with this. Patient was given IV fluids. Case was discussed with Dr. Oseguera he is willing to keep the patient here. Case was discussed with Dr. Rivera. He will admit the patient to his service. Patient and family understood and were agreeable with the plan. All questions were answered. Disposition: Admit to hospital Impression: Lower gastrointestinal bleeding This note was generated with [employer] dictation software. It may contain incorrect words, spelling, and punctuation that were not noted in review of the chart prior to signing ED Disposition - Plan for ED Patient: Disposition: Acute Care Hospital [facility] Chief Complaint: Dizziness Diagnosis: Lower gastrointestinal bleeding, Orthostatic hypotension Referrals: Elmo Burdick DO [Primary Care Provider] -
[2018-08-26 00:50] LABS: Mucous, Urine 0 SEEN /hpf (<or=2+)
[2018-08-26 00:52] LABS: Color, Urine Yellow (Yellow); Glucose, Dipstick Normal (Normal); Ketone-Dipstick 5 mg/dl (Negative); Leukocyte Esterase-Dipstick 500 /ul (Negative); Nitrite-Dipstick Positive (Negative); Occult Blood-Urine 10 /ul (Negative); Protein-Dipstick 15 mg/dl (Negative); Urine Clarity Clear (Clear); Urine Urobilinogen Normal (Normal)
[2018-08-26 01:42] LABS: Urine Bilirubin Dipstick 1 mg/dL (Negative)
[2018-08-26 01:44] LABS: Bacteria 1+ /hpf (None Seen); Red Blood Cells-Urine 0-5 SEEN /hpf (0-5); Squamous Epithelial Cells - UA 0-5 SEEN /hpf (5-10); White Blood Cells 50-100 SEEN /hpf (0-5)
[2018-08-26] MEDS: 0.9% NaCl Peripheral Flush Adult/Peds IV ×2 (01:53→22:02)
[2018-08-26] MEDS: Lactated Ringers 1,000 ML 100 ML IV ×2 (01:53→13:19)
[2018-08-26 03:30] LABS: Hematocrit 36.9 % (37-47)
[2018-08-26] MEDS: Levothyroxine 88 MCG Tablet PO (08:00)
[2018-08-26 08:03] LABS: Hematocrit 36.6 % (37-47); Hemoglobin 11.7 g/dl (12.0-15.0)
--- NOTE | 2018-08-26 10:18 | PCM.CONS.GEN ---
Problem List (1) Lower gastrointestinal bleeding Status: Acute Reason for Consult Date of Consultation: 08/26/18 Reason for Consultation: Rectal bleeding History of Present Illness: The patient is a 82 year old F who presents with 1 day history of single episode of bright red blood per rectum. Patient was recently hospitalized from 08/23/18 through 08/25/18 for chest pain and cardiac cath procedure. Patient was placed on Plavix yesterday prior to discharge. She has been off of Coumadin for 3 days and was told to discontinue her aspirin 4 days prior to last admission. Patient denies chest pain and shortness of breath. Patient's troponin level was as high as 2.1 during last admission and was treated for a non-STEMI. Patient did have aspirin and Plavix during last admission. She has not re-started her Coumadin which was scheduled to restart today. Patient denies previous stent placement. She notes previous myocardial infarction in 2013. Patient has a pacemaker placed in 2012. She also had a loop recorder placed prior to her pacemaker. She has a history of right breast cancer in 1997 and previous right breast mastectomy. Patient stated she was discharged yesterday and had not had a bowel movement for a few days. When she had a bowel movement last night she noted bright red blood in the toilet and on the toilet paper. She noted in the toilet the blood had mini clots. She denies pain with a bowel movement. She has not had any active bleeding since, however she said she has not had a bowel movement since that time. Patient denies abdominal pain/cramping. She denies melena. She also had blood pressure medications changed yesterday. Patient had come into the ED also with hypotension. She was given a bolus of fluid. Her blood pressure has since improved. Patient notes she is on iron supplements and vitamin B12 for 2 years. Her last colonoscopy and upper scope was in May [address] Oseguera. Findings included a benign gastric polyp. Colon was unremarkable. She denies family history of colon cancer. She denies smoking and occasional alcohol use. She lives alone in a condo. Patient's hgb was 12.6 in the ED and 11.7 today. INR 1.3. Patient denies pain in the right groin site. Past Medical History Past Medical History (Chronic Problems): Chronic Problems H/O cardiac catheterization (Chronic 08/25/18) Normal coronaries per cath 08/25/[address] C[place], [facility] History of TIA (transient ischemic attack) (Chronic) History of syncope (Chronic) Hypothyroidism (Chronic) History of breast cancer (Chronic) Benign essential hypertension (Chronic) Allergies levofloxacin [From Levaquin] Allergy (Verified 10/20/17 13:07) Angioedema lisinopril Allergy (Verified 10/20/17 13:07) Swelling Penicillins Allergy (Verified 10/20/17 13:07) Itching Sulfa (Sulfonamide Antibiotics) Allergy (Verified 10/20/17 13:07) Angioedema Home Medications: Ambulatory Orders Medication Instructions Recorded Amlodipine [Norvasc] 2.5 mg PO QHS 08/20/13 Atorvastatin Calcium [Lipitor] 20 mg PO QHS 08/20/13 Levothyroxine [Synthroid] 88 mcg PO DAILY 08/20/13 Atenolol [Tenormin (beta alissa)] 50 mg PO QHS 05/20/17 Potassium Chloride [Klor-Con 10] 10 meq PO DAILY 05/26/17 Ferrous Sulfate [Iron] 325 mg PO DAILY 08/23/18 Clopidogrel Bisulfate [Plavix] 75 mg PO DAILY 08/26/18 Isosorbide Mononitrate [Imdur] 30 mg PO DAILY 08/26/18 Surgical History: mastectomy, - - Pacemaker placement, cardiac catheterization, loop recorder implantation, right mastectomy; and plate in left arm. 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 Denies: Weight Change HEENT: Denies: Head Aches, Sinus Congestion, Sinus Drainage Cardiovascular: Denies: Chest Pain, Palpitations Respiratory: Denies: Cough, Shortness of breath at rest, Sputum production Gastrointestinal: Reports: Hematochezia. Denies: Abdominal Pain, Constipation, Diarrhea, Hematemesis, Nausea, Melena, Vomiting Genitourinary: Denies: Dysuria Musculoskeletal: Denies: Joint Pain, Joint Tenderness Skin: Denies: Rash, Wounds Neurological: Denies: Numbness, Tingling, Focal weakness Psychiatric: Denies: Anxiety, Depression, Homicidal Ideations, Suicidal Ideations Hematologic/ Lymphatic: Reports: Anemia, Easy Bruising, Easy Bleeding, Hx of blood clot Patient Problems: Active and Suspected Problems Lower gastrointestinal bleeding (Acute) Orthostatic hypotension (Acute) Acute GI bleeding (Acute) - Physical Exam General: Alert, Oriented x3, Cooperative HEENT: Atraumatic, PERRLA, EOMI, Normocephalic Neck: Supple, No JVD, Negative Carotid Bruits Lungs: Clear to auscultation, Normal air movement Cardiovascular: - - Very soft cardiac tones. RRR Abdomen: Bowel Sounds Present, Soft, Non Tender, - - Rectum- external hemorrhoids. Dry blood noted Extremities: No edema, Capillary Refill Less than 3 Seconds Skin: No rashes, No breakdown Musculoskeletal: No Tenderness to Palpation of Joints or Extremities Neurological: Neuro grossly intact Psych/Mental Status: Normal Affect, Appropriate Vital Signs Temp Pulse Resp BP Pulse Ox 97.9 F 72 18 133/68 H 93 08/26/18 07:50 08/26/18 07:50 08/26/18 07:50 08/26/18 07:50 08/26/18 07:50 Oxygen Flow Rate (L/min) 2 Oxygen Delivery Method Room Air Weight: 150 lb 2.157 oz Body Mass Index (BMI) 23.5 Finger Stick Blood Glucose 98 Orthostatic Vital Signs Start: 08/26/18 06:00 Freq: q24h Status: Active Protocol: Activity Type Activity Date Activity User E-Sign Co-Sign Detail Recorded Client Recorded Date Recorded By Document 08/26/18 06:[place] [facility] [id number]/26/18 06[place] [facility] [place]18 06:19 Orthostatic Vitals Standing -Blood Pressure (90/60-120/80) 125/78 H -Extremity Use Left Arm -Pulse Rate (60-100) 90 Sitting -Blood Pressure (90/60-120/80) 137/70 H -Extremity Use Left Arm -Pulse Rate (60-100) 75 Lying -Blood Pressure (90/60-120/80) 143/78 H -Extremity Use Left Arm -Pulse Rate (60-100) 70 Intake and Output for Last 24 Hours 08/24/18 08/25/18 08/26/18 23:59 23:59 23:59 Intake Total 501 / 501 Output Total 300 / 300 Balance 201 / 201 Microbiology Past 72 Hours 08/25/18 22:35 Stool Occult Blood (HARPREET) - Final Stool Occult Blood Positive Laboratory Tests Past 24 Hrs 08/25/18 08/25/18 08/25/18 20:55 20:55 20:55 WBC 8.4 RBC 4.35 Hgb 12.6 Hct 40.2 MCV 92.4 MCH 29.0 MCHC 31.3 L RDW 13.4 RDW Differential 45.3 H Plt Count 253 MPV 9.5 Immature Gran % (Auto) 0.100 Neut % (Auto) 72.8 H Lymph % (Auto) 20.7 [place] % (Auto) 5.8 Eos % (Auto) 0.4 Baso % (Auto) 0.2 Absolute Neuts (auto) 6.1 Absolute Lymphs (auto) 1.75 Total Counted Not Reportable PT 15.8 H INR 1.3 APTT 27.2 Sodium 142 Potassium 4.9 Chloride 110 H Carbon Dioxide 24.0 Anion Gap 8 BUN 24 H Creatinine 1.15 H Estim Creat Clear Calc 36.68 Est GFR (MDRD) Af Amer 58 L Est GFR (MDRD) Non-Af 48 L BUN/Creatinine Ratio 20.9 H Glucose 129 H Calcium 8.7 Total Bilirubin 0.30 AST 17 ALT 19 Alkaline Phosphatase 95 Troponin I 0.644 H* Total Protein 6.9 Albumin 3.1 L Globulin 3.8 Albumin/Globulin Ratio 0.8 L Urine Color Urine Clarity Urine pH Ur Specific [place] Urine Protein Urine Glucose (UA) Urine Ketones Urine Occult Blood Urine Nitrite Urine Bilirubin Urine Urobilinogen Ur Leukocyte Esterase Urine RBC Urine WBC Ur Squamous Epith Cells Urine Bacteria Urine Mucus 08/26/18 08/26/18 08/26/18 00:45 03:20 07:50 WBC RBC Hgb 12.0 11.7 L Hct 36.9 L 36.6 L MCV MCH MCHC RDW RDW Differential Plt Count MPV Immature Gran % (Auto) Neut % (Auto) Lymph % (Auto) [place] % (Auto) Eos % (Auto) Baso % (Auto) Absolute Neuts (auto) Absolute Lymphs (auto) Total Counted PT INR APTT Sodium Potassium Chloride Carbon Dioxide Anion Gap BUN Creatinine Estim Creat Clear Calc Est GFR (MDRD) Af Amer Est GFR (MDRD) Non-Af BUN/Creatinine Ratio Glucose Calcium Total Bilirubin AST ALT Alkaline Phosphatase Troponin I Total Protein Albumin Globulin Albumin/Globulin Ratio Urine Color Yellow Urine Clarity Clear Urine pH 5.0 Ur Specific [place] 1.020 Urine Protein 15 H Urine Glucose (UA) Normal Urine Ketones 5 H Urine Occult Blood 10 H Urine Nitrite Positive H Urine Bilirubin 1 H Urine Urobilinogen Normal Ur Leukocyte Esterase 500 H Urine RBC 0-5 SEEN Urine WBC 50-100 SEEN Ur Squamous Epith Cells 0-5 SEEN Urine Bacteria 1+ Urine Mucus 0 SEEN Assessment/Plan All Active Problems Lower gastrointestinal bleeding (Acute) Orthostatic hypotension (Acute) Acute GI bleeding (Acute) Pacemaker (Acute) I have been consulted in conjunction with Dr. Oseguera. Impression: Lower GI bleed Plan: I have discussed patient with Dr. Oseguera. Recommend cardiology evaluating patient for elevated troponin. Once cleared by cardiology, Dr. Oseguera will plan to perform an upper and lower endoscopy with possible biopsies. Procedure details, risks and benefits have been explained to the patient and her sister. Patient and her sister have had the opportunity to ask and have questions answered. Patient verbally understands and agrees with the plan. I have also discussed this patient with the hospitalist. We will use [employer] for bowel prep. Thank you for allowing us to participate in this patient's care. My recommendations will be available via electronic medical records. Code Visit Office Visits / Consults: [id number] IP Consult L3
--- NOTE | 2018-08-26 10:54 | CON.PCM_ITS ---
Problem List (1) Lower gastrointestinal bleeding Status: Acute Reason for Consult Date of Consultation: 08/26/18 Reason for Consultation: Rectal bleeding History of Present Illness: The patient is a 82 year old F who presents with 1 day history of single episode of bright red blood per rectum. Patient was recently hospitalized from 08/23/18 through 08/25/18 for chest pain and cardiac cath procedure. Patient was placed on Plavix yesterday prior to discharge. She has been off of Coumadin for 3 days and was told to discontinue her aspirin 4 days prior to last admission. Patient denies chest pain and shortness of breath. Patient's troponin level was as high as 2.1 during last admission and was treated for a non-STEMI. Patient did have aspirin and Plavix during last admission. She has not re-started her Coumadin which was scheduled to restart today. Patient denies previous stent placement. She notes previous myocardial infarction in 2013. Patient has a pacemaker placed in 2012. She also had a loop recorder placed prior to her pacemaker. She has a history of right breast cancer in 1997 and previous right breast mastectomy. Patient stated she was discharged yesterday and had not had a bowel movement for a few days. When she had a bowel movement last night she noted bright red blood in the toilet and on the toilet paper. She noted in the toilet the blood had mini clots. She denies pain with a bowel movement. She has not had any active bleeding since, however she said she has not had a bowel movement since that time. Patient denies abdominal pain/cramping. She denies melena. She also had blood pressure medications changed yesterday. Patient had come into the ED also with hypotension. She was given a bolus of fluid. Her blood pressure has since improved. Patient notes she is on iron supplements and vitamin B12 for 2 years. Her last colonoscopy and upper scope was in May [address] Oseguera. Findings included a benign gastric polyp. Colon was unremarkable. She denies family history of colon cancer. She denies smoking and occasional alcohol use. She lives alone in a condo. Patient's hgb was 12.6 in the ED and 11.7 today. INR 1.3. Patient denies pain in the right groin site. Past Medical History Past Medical History (Chronic Problems): Chronic Problems H/O cardiac catheterization (Chronic 08/25/18) Normal coronaries per cath 08/25/[address] [place], [facility] History of TIA (transient ischemic attack) (Chronic) History of syncope (Chronic) Hypothyroidism (Chronic) History of breast cancer (Chronic) Benign essential hypertension (Chronic) Allergies levofloxacin [From Levaquin] Allergy (Verified 10/20/17 13:07) Angioedema lisinopril Allergy (Verified 10/20/17 13:07) Swelling Penicillins Allergy (Verified 10/20/17 13:07) Itching Sulfa (Sulfonamide Antibiotics) Allergy (Verified 10/20/17 13:07) Angioedema Home Medications: Ambulatory Orders Medication Instructions Recorded Amlodipine [Norvasc] 2.5 mg PO QHS 08/20/13 Atorvastatin Calcium [Lipitor] 20 mg PO QHS 08/20/13 Levothyroxine [Synthroid] 88 mcg PO DAILY 08/20/13 Atenolol [Tenormin (beta alissa)] 50 mg PO QHS 05/20/17 Potassium Chloride [Klor-Con 10] 10 meq PO DAILY 05/26/17 Ferrous Sulfate [Iron] 325 mg PO DAILY 08/23/18 Clopidogrel Bisulfate [Plavix] 75 mg PO DAILY 08/26/18 Isosorbide Mononitrate [Imdur] 30 mg PO DAILY 08/26/18 Surgical History: mastectomy, - - Pacemaker placement, cardiac catheterization, loop recorder implantation, right mastectomy; and plate in left arm. 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 Denies: Weight Change HEENT: Denies: Head Aches, Sinus Congestion, Sinus Drainage Cardiovascular: Denies: Chest Pain, Palpitations Respiratory: Denies: Cough, Shortness of breath at rest, Sputum production Gastrointestinal: Reports: Hematochezia. Denies: Abdominal Pain, Constipation, Diarrhea, Hematemesis, Nausea, Melena, Vomiting Genitourinary: Denies: Dysuria Musculoskeletal: Denies: Joint Pain, Joint Tenderness Skin: Denies: Rash, Wounds Neurological: Denies: Numbness, Tingling, Focal weakness Psychiatric: Denies: Anxiety, Depression, Homicidal Ideations, Suicidal Ideation s Hematologic/ Lymphatic: Reports: Anemia, Easy Bruising, Easy Bleeding, Hx of blood clot Patient Problems: Active and Suspected Problems Lower gastrointestinal bleeding (Acute) Orthostatic hypotension (Acute) Acute GI bleeding (Acute) - Physical Exam General: Alert, Oriented x3, Cooperative HEENT: Atraumatic, PERRLA, EOMI, Normocephalic Neck: Supple, No JVD, Negative Carotid Bruits Lungs: Clear to auscultation, Normal air movement Cardiovascular: - - Very soft cardiac tones. RRR Abdomen: Bowel Sounds Present, Soft, Non Tender, - - Rectum- external hemorrhoids. Dry blood noted Extremities: No edema, Capillary Refill Less than 3 Seconds Skin: No rashes, No breakdown Musculoskeletal: No Tenderness to Palpation of Joints or Extremities Neurological: Neuro grossly intact Psych/Mental Status: Normal Affect, Appropriate Vital Signs Temp Pulse Resp BP Pulse Ox 97.9 F 72 18 133/68 H 93 08/26/18 07:50 08/26/18 07:50 08/26/18 07:50 08/26/18 07:50 08/26/18 07:50 Oxygen Flow Rate (L/min) 2 Oxygen Delivery Method Room Air Weight: 150 lb 2.157 oz Body Mass Index (BMI) 23.5 Finger Stick Blood Glucose 98 Orthostatic Vital Signs Start: 08/26/18 06:00 Freq: q24h Status: Active Protocol: Activity Type Activity Date Activity User E-Sign Co-Sign Detail Recorded Client Recorded Date Recorded By Document 08/26/18 06:19 [facility] [id number] 08/26/18 06:29 [facility] 08/26/18 06:19 Orthostatic Vitals Standing -Blood Pressure (90/60-120/80) 125/78 H -Extremity Use Left Arm -Pulse Rate (60-100) 90 Sitting -Blood Pressure (90/60-120/80) 137/70 H -Extremity Use Left Arm -Pulse Rate (60-100) 75 Lying -Blood Pressure (90/60-120/80) 143/78 H -Extremity Use Left Arm -Pulse Rate (60-100) 70 Intake and Output for Last 24 Hours 08/24/18 08/25/18 08/26/18 23:59 23:59 23:59 Intake Total 501 / 501 Output Total 300 / 300 Balance 201 / 201 Microbiology Past 72 Hours 08/25/18 22:35 Stool Occult Blood (HARPREET) - Final Stool Occult Blood Positive Laboratory Tests Past 24 Hrs 08/25/18 08/25/18 08/25/18 20:55 20:55 20:55 WBC 8.4 RBC 4.35 Hgb 12.6 Hct 40.2 MCV 92.4 MCH 29.0 MCHC 31.3 L RDW 13.4 RDW Differential 45.3 H Plt Count 253 MPV 9.5 Immature Gran % (Auto) 0.100 Neut % (Auto) 72.8 H Lymph % (Auto) 20.7 [place] % (Auto) 5.8 Eos % (Auto) 0.4 Baso % (Auto) 0.2 Absolute Neuts (auto) 6.1 Absolute Lymphs (auto) 1.75 Total Counted Not Reportable PT 15.8 H INR 1.3 APTT 27.2 Sodium 142 Potassium 4.9 Chloride 110 H Carbon Dioxide 24.0 Anion Gap 8 BUN 24 H Creatinine 1.15 H Estim Creat Clear Calc 36.68 Est GFR (MDRD) Af Amer 58 L Est GFR (MDRD) Non-Af 48 L BUN/Creatinine Ratio 20.9 H Glucose 129 H Calcium 8.7 Total Bilirubin 0.30 AST 17 ALT 19 Alkaline Phosphatase 95 Troponin I 0.644 H* Total Protein 6.9 Albumin 3.1 L Globulin 3.8 Albumin/Globulin Ratio 0.8 L Urine Color Urine Clarity Urine pH Ur Specific [place] Urine Protein Urine Glucose (UA) Urine Ketones Urine Occult Blood Urine Nitrite Urine Bilirubin Urine Urobilinogen Ur Leukocyte Esterase Urine RBC Urine WBC Ur Squamous Epith Cells Urine Bacteria Urine Mucus 08/26/18 08/26/18 08/26/18 00:45 03:20 07:50 WBC RBC Hgb 12.0 11.7 L Hct 36.9 L 36.6 L MCV MCH MCHC RDW RDW Differential Plt Count MPV Immature Gran % (Auto) Neut % (Auto) Lymph % (Auto) [place] % (Auto) Eos % (Auto) Baso % (Auto) Absolute Neuts (auto) Absolute Lymphs (auto) Total Counted PT INR APTT Sodium Potassium Chloride Carbon Dioxide Anion Gap BUN Creatinine Estim Creat Clear Calc Est GFR (MDRD) Af Amer Est GFR (MDRD) Non-Af BUN/Creatinine Ratio Glucose Calcium Total Bilirubin AST ALT Alkaline Phosphatase Troponin I Total Protein Albumin Globulin Albumin/Globulin Ratio Urine Color Yellow Urine Clarity Clear Urine pH 5.0 Ur Specific [place] 1.020 Urine Protein 15 H Urine Glucose (UA) Normal Urine Ketones 5 H Urine Occult Blood 10 H Urine Nitrite Positive H Urine Bilirubin 1 H Urine Urobilinogen Normal Ur Leukocyte Esterase 500 H Urine RBC 0-5 SEEN Urine WBC 50-100 SEEN Ur Squamous Epith Cells 0-5 SEEN Urine Bacteria 1+ Urine Mucus 0 SEEN Assessment/Plan All Active Problems Lower gastrointestinal bleeding (Acute) Orthostatic hypotension (Acute) Acute GI bleeding (Acute) Pacemaker (Acute) I have been consulted in conjunction with Dr. Oseguera. Impression: Lower GI bleed Plan: I have discussed patient with Dr. Oseguera. Recommend cardiology evaluating patient for elevated troponin. Once cleared by cardiology, Dr. Oseguera will plan to perform an upper and lower endoscopy with possible biopsies. Procedure details, risks and benefits have been explained to the patient and her sister. Patient and her sister have had the opportunity to ask and have questions answered. Patient verbally understands and agrees with the plan. I have also discussed this patient with the hospitalist. We will use Gol[facility] for bowel prep. Thank you for allowing us to participate in this patient's care. My recommendations will be available via electronic medical records. Code Visit Office Visits / Consults: [id number] IP Consult L3
--- NOTE | 2018-08-26 11:58 | CASEMGMT ---
Readmission chart review: Pt was initially admitted 08/24-08/25 for NSTEMI/Chest pain and after discharge, later that evening started with bright ghulam rectal bleeding. Pt was previously on coumadin as well. See RN CM assessment completed by this RN CM on 08/24/18. CM to follow for any further discharge planning/needs and for PT/OT evals. SStaten RN CM
[2018-08-26 14:26] LABS: Hematocrit 37.7 % (37-47); Hemoglobin 12.1 g/dl (12.0-15.0)
[2018-08-26] MEDS: Electrolyte Solution/Peg's 4000 ML PO (15:46)
--- NOTE | 2018-08-26 16:41 | PCM.PN.HOSP ---
Patient Problems: Active and Suspected Problems Lower gastrointestinal bleeding (Acute) Orthostatic hypotension (Acute) Acute GI bleeding (Acute) Subjective: Doing well, no abdominal pain. Denies having any bright red blood per rectum today. She states that she has been having this issue on and off intermittently for the last couple of months. There is nothing special out last night that made her come in Vitals/I&O's: Vital Signs Temp Pulse Resp BP Pulse Ox 97.7 F L 78 18 134/83 H 92 08/26/18 13:50 08/26/18 15:38 08/26/18 13:50 08/26/18 13:50 08/26/18 13:50 Oxygen Flow Rate (L/min) 2 Oxygen Delivery Method Room Air Weight: 150 lb 2.157 oz Body Mass Index (BMI) 23.5 Finger Stick Blood Glucose 98 Orthostatic Vital Signs Start: 08/26/18 06:00 Freq: q24h Status: Active Protocol: Activity Type Activity Date Activity User E-Sign Co-Sign Detail Recorded Client Recorded Date Recorded By Document 08/26/18 06:19 [facility] [id number] 08/26/18 06:29 [facility] 08/26/18 06:19 Orthostatic Vitals Standing -Blood Pressure (90/60-120/80) 125/78 H -Extremity Use Left Arm -Pulse Rate (60-100) 90 Sitting -Blood Pressure (90/60-120/80) 137/70 H -Extremity Use Left Arm -Pulse Rate (60-100) 75 Lying -Blood Pressure (90/60-120/80) 143/78 H -Extremity Use Left Arm -Pulse Rate (60-100) 70 Intake and Output for Last 24 Hours 08/24/18 08/25/18 08/26/18 23:59 23:59 23:59 Intake Total 1484 / 1484 Output Total 300 / 300 Balance 1184 / 1184 General: Alert, Oriented x3, Cooperative, No apparent distress HEENT: Atraumatic, PERRLA, EOMI, Normocephalic Oral: Moist Mucosa Neck: Supple, No JVD, Trachea Midline Lungs: Clear to auscultation, Normal air movement, No rhonchi, No wheeze, No rales Cardiovascular: Regular rate, Regular Rhythm, Normal S1, Normal S2, No murmurs, No rub noted, No Gallop Abdomen: Soft, Non Tender, Non-Distended, No Hepato-splenomegaly Extremities: No edema, Capillary Refill Less than 3 Seconds Skin: No rashes, No breakdown Neurological: Neuro grossly intact, Sensory exam intact to light touch and pain Psych/Mental Status: Normal Affect, Appropriate Microbiology Past 72 Hours 08/25/18 22:35 Stool Stool Occult Blood (HARPREET) - Final Occult Blood Positive Laboratory Results 08/25/18 20:55: WBC 8.4, RBC 4.35, Hgb 12.6, Hct 40.2, MCV 92.4, MCH 29.0, MCHC 31.3 L, RDW 13.4, RDW Differential 45.3 H, Plt Count 253, MPV 9.5, Immature Gran % (Auto) 0.100, Neut % (Auto) 72.8 H, Lymph % (Auto) 20.7, [place] % (Auto) 5.8, Eos % (Auto) 0.4, Baso % (Auto) 0.2, Absolute Neuts (auto) 6.1, Absolute Lymphs (auto) 1.75, Total Counted Not Reportable 08/25/18 20:55: PT 15.8 H, INR 1.3, APTT 27.2 08/25/18 20:55: Sodium 142, Potassium 4.9, Chloride 110 H, Carbon Dioxide 24.0, Anion Gap 8, BUN 24 H, Creatinine 1.15 H, Estim Creat Clear Calc 36.68, Est GFR (MDRD) Af Amer 58 L, Est GFR (MDRD) Non-Af 48 L, BUN/Creatinine Ratio 20.9 H, Glucose 129 H, Calcium 8.7, Total Bilirubin 0.30, AST 17, ALT 19, Alkaline Phosphatase 95, Troponin I 0.644 H*, Total Protein 6.9, Albumin 3.1 L, Globulin 3.8, Albumin/Globulin Ratio 0.8 L 08/26/18 00:45: Urine Color Yellow, Urine Clarity Clear, Urine pH 5.0, Ur Specific [place] 1.020, Urine Protein 15 H, Urine Glucose (UA) Normal, Urine Ketones 5 H, Urine Occult Blood 10 H, Urine Nitrite Positive H, Urine Bilirubin 1 H, Urine Urobilinogen Normal, Ur Leukocyte Esterase 500 H, Urine RBC 0-5 SEEN, Urine WBC 50-100 SEEN, Ur Squamous Epith Cells 0-5 SEEN, Urine Bacteria 1+, Urine Mucus 0 SEEN 08/26/18 03:20: Hgb 12.0, Hct 36.9 L 08/26/18 07:50: Hgb 11.7 L, Hct 36.6 L 08/26/18 14:10: Hgb 12.1, Hct 37.7 Current Medications Atorvastatin Calcium (Lipitor) 20 mg PO QHS [facility] Ferrous Sulfate (Ferrous Sulfate) 325 mg PO DAILYCM [facility] Last Admin: 08/26/18 07:39 Dose: Not Given Pantoprazole Sodium 40 mg/ (Sodium Chloride) 110 mls @ 330 mls/hr IV Q12 [facility] Last Admin: 08/26/18 09:16 Dose: 330 mls/hr Levothyroxine Sodium (Synthroid) 88 mcg PO DAILY@0600 [facility] Last Admin: 08/26/18 08:00 Dose: 88 mcg Magnesium Hydroxide (Milk Of Magnesia) 30 ml PO DAILY PRN PRN Reason: Constipation Sodium Chloride () 5 - 15 ml IV UD PRN PRN Reason: SALINE FLUSH Last Admin: 08/26/18 01:53 Dose: 10 ml Medical Necessity - Tobacco Use Smoking Status: Never smoker Assessment/Plan All Active Problems Lower gastrointestinal bleeding (Acute) Orthostatic hypotension (Acute) Acute GI bleeding (Acute) Pacemaker (Acute) 1. Bright red blood per rectum -Hold Coumadin as well as Plavix -She recently had an NSTEMI however no stent was placed -Colonoscopy and EGD for tomorrow -Consult to general surgery -Hemoglobin is normal 2. NSTEMI/hypertension/history of pacemaker -Troponin today is elevated 2.6 however this is down from the 2.18 that it was a day or so ago -She was on aspirin Plavix however she was also on Coumadin at the time so the decision was made to stop the aspirin and just continue the Coumadin Plavix which both will be held at this time -Continue with the Norvasc and the atenolol when taking p.o., blood pressure is stabilized -Continue with Lipitor 3. Hypothyroidism -Stable -T with home Synthroid DVT: SCDs Code Visit Inpatient E&M: 40825 Subs Hosp L2
--- NOTE | 2018-08-26 16:48 | PN_ITS ---
Patient Problems: Active and Suspected Problems Lower gastrointestinal bleeding (Acute) Orthostatic hypotension (Acute) Acute GI bleeding (Acute) Subjective: Doing well, no abdominal pain. Denies having any bright red blood per rectum today. She states that she has been having this issue on and off intermittently for the last couple of months. There is nothing special out last night that made her come in Vitals/I&O's: Vital Signs Temp Pulse Resp BP Pulse Ox 97.7 F L 78 18 134/83 H 92 08/26/18 13:50 08/26/18 15:38 08/26/18 13:50 08/26/18 13:50 08/26/18 13:50 Oxygen Flow Rate (L/min) 2 Oxygen Delivery Method Room Air Weight: 150 lb 2.157 oz Body Mass Index (BMI) 23.5 Finger Stick Blood Glucose 98 Orthostatic Vital Signs Start: 08/26/18 06:00 Freq: q24h Status: Active Protocol: Activity Type Activity Date Activity User E-Sign Co-Sign Detail Recorded Client Recorded Date Recorded By Document 08/26/18 06:19 [facility] [place] [id number] 08/26/18 06:29 [facility] 08/26/18 06:19 Orthostatic Vitals Standing -Blood Pressure (90/60-120/80) 125/78 H -Extremity Use Left Arm -Pulse Rate (60-100) 90 Sitting -Blood Pressure (90/60-120/80) 137/70 H -Extremity Use Left Arm -Pulse Rate (60-100) 75 Lying -Blood Pressure (90/60-120/80) 143/78 H -Extremity Use Left Arm -Pulse Rate (60-100) 70 Intake and Output for Last 24 Hours 08/24/18 08/25/18 08/26/18 23:59 23:59 23:59 Intake Total 1484 / 1484 Output Total 300 / 300 Balance 1184 / 1184 General: Alert, Oriented x3, Cooperative, No apparent distress HEENT: Atraumatic, PERRLA, EOMI, Normocephalic Oral: Moist Mucosa Neck: Supple, No JVD, Trachea Midline Lungs: Clear to auscultation, Normal air movement, No rhonchi, No wheeze, No rales Cardiovascular: Regular rate, Regular Rhythm, Normal S1, Normal S2, No murmurs, No rub noted, No Gallop Abdomen: Soft, Non Tender, Non-Distended, No Hepato-splenomegaly Extremities: No edema, Capillary Refill Less than 3 Seconds Skin: No rashes, No breakdown Neurological: Neuro grossly intact, Sensory exam intact to light touch and pain Psych/Mental Status: Normal Affect, Appropriate Microbiology Past 72 Hours 08/25/18 22:35 Stool Stool Occult Blood (HARPREET) - Final Occult Blood Positive Laboratory Results 08/25/18 20:55: WBC 8.4, RBC 4.35, Hgb 12.6, Hct 40.2, MCV 92.4, MCH 29.0, MCHC 31.3 L, RDW 13.4, RDW Differential 45.3 H, Plt Count 253, MPV 9.5, Immature Gran % (Auto) 0.100, Neut % (Auto) 72.8 H, Lymph % (Auto) 20.7, [place] % (Auto) 5.8, Eos % (Auto) 0.4, Baso % (Auto) 0.2, Absolute Neuts (auto) 6.1, Absolute Lymphs (auto) 1.75, Total Counted Not Reportable 08/25/18 20:55: PT 15.8 H, INR 1.3, APTT 27.2 08/25/18 20:55: Sodium 142, Potassium 4.9, Chloride 110 H, Carbon Dioxide 24.0, Anion Gap 8, BUN 24 H, Creatinine 1.15 H, Estim Creat Clear Calc 36.68, Est GFR (MDRD) Af Amer 58 L, Est GFR (MDRD) Non-Af 48 L, BUN/Creatinine Ratio 20.9 H, Glucose 129 H, Calcium 8.7, Total Bilirubin 0.30, AST 17, ALT 19, Alkaline Phosphatase 95, Troponin I 0.644 H*, Total Protein 6.9, Albumin 3.1 L, Globulin 3.8, Albumin/Globulin Ratio 0.8 L 08/26/18 00:45: Urine Color Yellow, Urine Clarity Clear, Urine pH 5.0, Ur Specific [place] 1.020, Urine Protein 15 H, Urine Glucose (UA) Normal, Urine Ketones 5 H, Urine Occult Blood 10 H, Urine Nitrite Positive H, Urine Bilirubin 1 H, Urine Urobilinogen Normal, Ur Leukocyte Esterase 500 H, Urine RBC 0-5 SEEN, Urine WBC 50-100 SEEN, Ur Squamous Epith Cells 0-5 SEEN, Urine Bacteria 1+, Urine Mucus 0 SEEN 08/26/18 03:20: Hgb 12.0, Hct 36.9 L 08/26/18 07:50: Hgb 11.7 L, Hct 36.6 L 08/26/18 14:10: Hgb 12.1, Hct 37.7 Current Medications Atorvastatin Calcium (Lipitor) 20 mg PO QHS [facility] Ferrous Sulfate (Ferrous Sulfate) 325 mg PO DAILYCM [facility] Last Admin: 08/26/18 07:39 Dose: Not Given Pantoprazole Sodium 40 mg/ (Sodium Chloride) 110 mls @ 330 mls/hr IV Q12 [facility] Last Admin: 08/26/18 09:16 Dose: 330 mls/hr Levothyroxine Sodium (Synthroid) 88 mcg PO DAILY@0600 [facility] Last Admin: 08/26/18 08:00 Dose: 88 mcg Magnesium Hydroxide (Milk Of Magnesia) 30 ml PO DAILY PRN PRN Reason: Constipation Sodium Chloride () 5 - 15 ml IV UD PRN PRN Reason: SALINE FLUSH Last Admin: 08/26/18 01:53 Dose: 10 ml Medical Necessity - Tobacco Use Smoking Status: Never smoker Assessment/Plan All Active Problems Lower gastrointestinal bleeding (Acute) Orthostatic hypotension (Acute) Acute GI bleeding (Acute) Pacemaker (Acute) 1. Bright red blood per rectum -Hold Coumadin as well as Plavix -She recently had an NSTEMI however no stent was placed -Colonoscopy and EGD for tomorrow -Consult to general surgery -Hemoglobin is normal 2. NSTEMI/hypertension/history of pacemaker -Troponin today is elevated 2.6 however this is down from the 2.18 that it was a day or so ago -She was on aspirin Plavix however she was also on Coumadin at the time so the decision was made to stop the aspirin and just continue the Coumadin Plavix which both will be held at this time -Continue with the Norvasc and the atenolol when taking p.o., blood pressure is stabilized -Continue with Lipitor 3. Hypothyroidism -Stable -T with home Synthroid DVT: SCDs Code Visit Inpatient E&M: 64697 Subs Hosp L2
[2018-08-27] VITALS (12 sets, daily range): BP systolic 103–145; BP diastolic 44–78; PULSE 60–95; RESP 16–18; TEMP 36.6–37.2; O2SAT 92–97; BMI 23.6
[2018-08-27] MEDS: Levothyroxine 88 MCG Tablet PO (05:34)
[2018-08-27] MEDS: 0.9% NaCl Peripheral Flush Adult/Peds IV (05:35)
[2018-08-27 06:17] LABS: International Normalized Ratio 1.1; Prothrombin Time (Protime)PT. 14.4 SECONDS (11.7-14.9)
[2018-08-27 06:30] LABS: Absolute Lymphocyte Count 1.29 X10^3/ul (0.83-4.51); Absolute Neutrophil Count 3.7 X10^3/uL (2.0-7.7); Basophil# 0.01 X10^3/uL; Basophil% 0.2 % (0-1); Eosinophil# 0.23 X10^3/uL; Hematocrit 38.5 % (37-47); Hemoglobin 12.2 g/dl (12.0-15.0); Lymphocyte # 1.29 X10^3/ul (4.0); Lymphocyte % 22.6 % (19-41); Mean Corp Hgb Conc 31.7 g/gl (32-36); Mean Corpuscular Volume 91.4 fL (81-99); Mean Platelet Vol. 9.3 fl (6.2-12.0); Monocyte# 0.53 X10^3/uL; Monocyte% 9.3 % (0-10); Neutrophil # 3.65 X10^3/uL (2.7-7.7); Neutrophil % 63.7 % (47-70); Platelet Count 191 K/mm3 (150-450); RBC Distribution Width CV 13.3 % (11.6-14.6); RBC Distribution Width SD 43.9 fl (35.1-43.9); Red Blood Count 4.21 M/mm3 (4.2-5.4); White Blood Count 5.7 K/mm3 (4.4-11.0)
[2018-08-27 06:35] LABS: POSITIVE COUNT NO; POSITIVE DIFFERENTIAL NO; POSITIVE MORPHOLOGY NO
[2018-08-27 06:46] LABS: Anion Gap 9 (5-15); BUN 10 mg/dL (7-18); BUN/Creat Ratio 15.4 RATIO (10-20); Calcium,Total 8.6 mg/dL (8.5-10.1); Chloride 110 mmol/L (98-107); Creatinine, Serum 0.65 mg/dL (0.55-1.02); EST Glomerular Filtration Rate 93 mL/min (>60); Est Glom Filt Rate - Afr Amer 112 mL/min (>60); Estimated Creatinine Clearance 42.18 ml/min; Glucose 85 mg/dL (74-106); Potassium 3.7 mmol/L (3.5-5.1); Sodium Level 144 mmol/L (136-145); Thyroid Stim Hormone (TSH) 0.07 uIU/mL (0.358-3.74)
--- NOTE | 2018-08-27 10:30 | IMM_PTH ---
PATIENT: LUCRETIA LEAL LOC: [facility] U#:[id number] AGE/SX: 82/F ROOM: [facility] RE08/26/[address]: Dr. Salazar Harper MD : [id number] BED: 1 DIS: 08/27/2018 SPEC #: [id number] RECD: 08/27/18 13:07 STATUS: MARI REQ #: [id number] DEV: 08/27/18 10:[address]: Earl Oseguera DEPT: IMMUNOHISTOCHEMISTRY RECD BY: Maura Liu ENTERED: 08/27/18 13:08 SP TYPE: IMMUNO OTHR DR: MD Dr. Elmo Steel DO Dr. Nicholas F Kotsonis, MD Dr. Robert D Cebul, MD Tissues: A - Stomach, NOS B - Stomach, NOS Procedures: H Pylori (initial) CD138 (add) CD20 (add) CD43 (add) CD45 (add) CD5 (add) CD79A (add) KI-67 (add) P53 (add) CD3 (initial) Comments: @ Ordering doctor for H.PYLORI edited from to @ by DAHLIA at 08/27/18 130 @ Submitting doctor edited from to @ by DAHLIA at 08/27/18 1307 PHYSICIAN & INSTIT[facility] [address] [address] SPECIMEN INFORMATION: Tissue Source: A - Biopsy of antrum, B - Biopsy of stomach polyp Clinical Info: GI bleed Specimen Number: [id number] A & B CPT code: 89965 x2, 06565 x8 METHODOLOGY: Deparaffinized sections of prefer/formalin-fixed tissue or PAP/DQ stained slides are incubated with monoclonal/polyclonal antibodies/oligonucleotide probes. Localization is made via biotin free immunoperoxidase method. Appropriate controls are performed and reacted as expected. Results on target cell population are indicated in the following table: RESULTS: ANTIBODY / CLONE RESULT Block A H Pylori (polyclonal) negative Block B CD3 (PS1) positive CD5 (SP10) positive CD20 (L26) positive CD43 (L60) positive CD45 (RP2/18) positive CD79a (11E3) positive CD138 (B-A38) negative Ki-67 (30-9) negative P53 (DO-7) negative These tests were developed and their performance characteristics determined by [facility]. They may not have been cleared or approved by the U.[place]. Food and Drug Administration. The FDA has determined that such clearance or approval is not necessary. INTERPRETATION: A.Gastric antrum, biopsy: Negative for H. pylori organisms. B. Gastric polyp, biopsy: Consistent with benign (polytypic) lymphoid aggregates. AM:rashida 08/31/18 Case has been reviewed in consultation with Dr. Chinchilla who concurs with the above diagnosis. IDC:BRIAN
--- NOTE | 2018-08-27 10:30 | EGD_PTH ---
PATIENT: LUCRETIA LEAL LOC: PCU U#:[id number] AGE/SX: 82/F ROOM: [facility] RE08/26/[address]: Dr. Salazar Harper MD : 1935 BED: 1 DIS: 08/27/2018 SPEC #: [id number] RECD: 08/27/18 11:17 STATUS: MARI REMomo #: [id number] DEV: 08/27/18 10:[address]: Earl Oseguera DEPT: SURGICAL PATHOLOGY RECD BY: Jose Luis Brito ENTERED: 08/27/18 11:35 SP TYPE: EGD BIOPSY OTHR DR: MD Dr. Elmo Steel DO Dr. Nicholas F Kotsonis, MD Dr. Robert D Cebul, MD Tissues: A - Gastric mucous membrane B - Gastric mucous membrane C - Sigmoid colon biopsy Procedures: Surgery Specimen Level IV Comments: @ Ordering doctor for SUIV edited from to @ osman VILLAGOMEZ at 08/27/18 1525 @ Submitting doctor edited from to @ by DAHLIA at 08/27/18 1525 HEADER OPERATION: Colonoscopy, EGD ([facility] [place] PRE-OP DIAGNOSIS: GI bleed TISSUE SUBMITTED: A - Biopsy of antrum for H. pylori and path, B - Biopsy of stomach polyp, C - Sigmoid colon biopsy MICROSCOPIC DIAGNOSIS A. Gastric antrum, biopsy: Chronic gastritis, mild to moderate. B. Gastric polyp, biopsy: Consistent with hyperplastic polyp. Benign lymphoid aggregates. See Comment. C. Sigmoid colon, biopsy: Colonic mucosa with hyperplastic change. AM:rashida 08/28/18 COMMENT A. The results of immunohistochemistry for Helicobacter pylori will be reported separately ([id number]). B. Immunohistochemistry ([id number]) supports the above diagnosis and reveals polytypic lymphoid aggregates in the mucosa. There is no definitive evidence of a lymphoproliferative disorder. Clinical correlation is suggested. Case has been reviewed in consultation with Dr. Chinchilla who concurs with the above diagnosis. IDC:SJ MICROSCOPIC DESCRIPTION Slides are reviewed. GROSS DESCRIPTION A - Received in fixative is one container labeled with the patient's name and designated antrum biopsy. The specimen consists of one irregular fragment of light hairston soft tissue that measures 0.3 x 0.3 x 0.1 cm. The specimen is totally submitted in one cassette. B - Received in fixative is one container labeled with the patient's name and designated stomach polyp biopsy. The specimen consists of multiple irregular fragments of light hairston soft tissue that in aggregate measure 0.8 x 0.5 x 0.1 cm. The specimen is totally submitted in one cassette. C - Received in fixative is one container labeled with the patient's name and designated sigmoid colon biopsy. The specimen consists of one irregular fragment of light hairston soft tissue that measures 0.2 x 0.2 x 0.1 cm. The specimen is totally submitted in one cassette. / AM:rashida 08/27/18 TC:5 CPT: 41418 x3
--- NOTE | 2018-08-27 11:05 | OP.ENDO_ITS ---
Patient Name: Gracie Guzman Procedure Date: 08/27/2018 10:09 AM Date of : 1935 Age: 82 Procedure: Upper GI endoscopy Indications: Heme positive stool, Active gastrointestinal bleeding Providers: Earl Oseguera MD Referring MD: Edilberto Rivera Medicines: See the Anesthesia note for documentation of the administered medications Patient Profile: This is an 82 year old female. Refer to note in patient chart for documentation of history and physical. Complications: No immediate complications. Procedure: Pre-Anesthesia Assessment: - Prior to the procedure, a History and Physical was performed, and patient medications and allergies were reviewed. The patient's tolerance of previous anesthesia was also reviewed. The risks and benefits of the procedure and the sedation options and risks were discussed with the patient. All questions were answered, and informed consent was obtained. Prior Anticoagulants: The patient has taken no previous anticoagulant or antiplatelet agents. ASA Grade Assessment: III - A patient with severe systemic disease. After reviewing the risks and benefits, the patient was deemed in satisfactory condition to undergo the procedure. After obtaining informed consent, the endoscope was passed under direct vision. Throughout the procedure, the patient's blood pressure, pulse, and oxygen saturations were monitored continuously. The gastroscope was introduced through the mouth, and advanced to the second part of duodenum. The upper GI endoscopy was accomplished without difficulty. The patient tolerated the procedure well. Scope In: 10:40:52 AM Scope Out: 10:45:14 AM Total Procedure Duration Time 0 hours 4 minutes 22 seconds Findings: The examined esophagus was normal. Localized minimal inflammation characterized by erythema was found in the prepyloric region of the stomach. Biopsies were taken with a cold forceps for Helicobacter pylori testing. The examined duodenum was normal. No biopsies or other specimens were collected for this exam. Two 3 mm sessile polyps with no bleeding and no stigmata of recent bleeding were found on the lesser curvature of the stomach. The polyp was removed with a jumbo cold forceps. Resection and retrieval were complete. The exam was otherwise without abnormality. Impression: - Normal esophagus. - Gastritis. Biopsied. - Normal examined duodenum. No specimens collected. - Two gastric polyps. Resected and retrieved. - The examination was otherwise normal. Recommendation: - Await pathology results. - Repeat upper endoscopy at appointment to be scheduled for surveillance. - Return to my office in 1 week. - Continue present medications. Procedure Code(s): --- Professional --- 97786, Esophagogastroduodenoscopy, flexible, transoral; with biopsy, single or multiple Diagnosis Code(s): --- Professional --- K29.70, Gastritis, unspecified, without bleeding K31.7, Polyp of stomach and duodenum R19.5, Other fecal abnormalities K92.2, Gastrointestinal hemorrhage, unspecified CPT copyright 2017 [employer]. All rights reserved. The codes documented in this report are preliminary and upon maintenance supervisor electrical review may be revised to meet current compliance requirements. MD Earl Schmidt MD 08/27/2018 11:05:06 AM This report has been signed electronically. Number of Addenda: 0 Note Initiated On: 08/27/2018 10:09 AM
--- NOTE | 2018-08-27 11:12 | OP.ENDO_ITS ---
Patient Name: Gracie Guzman Procedure Date: 08/27/2018 10:45 AM Date of : 1935 Age: 82 Procedure: Colonoscopy Indications: Heme positive stool, Rectal bleeding Providers: Earl Oseguera MD Referring MD: Edilberto Rivera Medicines: See the Anesthesia note for documentation of the administered medications Patient Profile: This is an 82 year old female. Refer to note in patient chart for documentation of history and physical. Last Colonoscopy: more than 3 years ago. Complications: No immediate complications. Procedure: Pre-Anesthesia Assessment: - Prior to the procedure, a History and Physical was performed, and patient medications and allergies were reviewed. The patient's tolerance of previous anesthesia was also reviewed. The risks and benefits of the procedure and the sedation options and risks were discussed with the patient. All questions were answered, and informed consent was obtained. Prior Anticoagulants: The patient has taken no previous anticoagulant or antiplatelet agents. ASA Grade Assessment: III - A patient with severe systemic disease. After reviewing the risks and benefits, the patient was deemed in satisfactory condition to undergo the procedure. After I obtained informed consent, the scope was passed under direct vision. Throughout the procedure, the patient's blood pressure, pulse, and oxygen saturations were monitored continuously. The adult colonoscope was introduced through the anus and advanced to 3 cm into the ileum. The colonoscopy was performed without difficulty. The patient tolerated the procedure well. The quality of the bowel preparation was good. Scope In: 10:47:44 AM Scope Withdrawal Time 0 hours 6 minutes 7 seconds Scope Out: 11:00:37 AM Total Procedure Duration Time 0 hours 12 minutes 53 seconds Findings: Localized mild inflammation characterized by congestion (edema) and erythema was found at the splenic flexure. This was biopsied with a cold forceps for histology. Bleeding external and internal hemorrhoids were found during retroflexion. The hemorrhoids were moderate and large. The exam was otherwise without abnormality. Impression: - Localized mild inflammation was found at the Sigmoid colon . Biopsied. - Bleeding external and internal hemorrhoids. - The examination was otherwise normal. - I believe the most likely source of her bleeding was from her hemorrhoids. I think that the inflammation that we saw on the sigmoid colon could quite possibly be due to the bowel prep. - There were no signs of active bleeding throughout the colon just the inflammation that was seen in the sigmoid colon area Recommendation: - Return patient to [facility] for [facility] care. - Resume previous diet. - Continue present medications. - Await pathology results. - Repeat colonoscopy date to be determined after pending pathology results are reviewed for surveillance. - Return to my office in 1 week. Procedure Code(s): --- Professional --- 19359, Colonoscopy, flexible; with biopsy, single or multiple Diagnosis Code(s): --- Professional --- K51.50, Left sided colitis without complications K64.8, Other hemorrhoids R19.5, Other fecal abnormalities K62.5, Hemorrhage of anus and rectum CPT copyright 2017 [employer]. All rights reserved. The codes documented in this report are preliminary and upon test rack operator review may be revised to meet current compliance requirements. MD Earl Schmidt MD 08/27/2018 11:12:08 AM This report has been signed electronically. Number of Addenda: 0 Note Initiated On: 08/27/2018 10:45 AM
--- NOTE | 2018-08-27 13:02 | DCINST_ITS ---
- Discharge Diagnoses Current Active Problems: Current Active and Chronic Problems Lower gastrointestinal bleeding (Acute) Orthostatic hypotension (Acute) Acute GI bleeding (Acute) You will use the following diet at home:: Cardiac Your food should be the consistency of: Regular Your liquids should be the consistency of: Regular/Thin Discharge Activity: Return to Normal Activity Call your doctor if you observe: Shortness of breath, Dizziness, Chest pain, Increased palpitations (irregular heartbeat) Allergies/Adverse Reactions: Allergies levofloxacin [From Levaquin] Allergy (Verified 10/20/17 13:07) Angioedema lisinopril Allergy (Verified 10/20/17 13:07) Swelling Penicillins Allergy (Verified 10/20/17 13:07) Itching Sulfa (Sulfonamide Antibiotics) Allergy (Verified 10/20/17 13:07) Angioedema Medications to take at Discharge Amlodipine [Norvasc] 2.5 mg PO QHS 08/20/13 Atorvastatin Calcium [Lipitor] 20 mg PO QHS 08/20/13 Levothyroxine [Synthroid] 88 mcg PO DAILY 08/20/13 Atenolol [Tenormin (beta alissa)] 50 mg PO QHS 05/20/17 Potassium Chloride [Klor-Con 10] 10 meq PO DAILY 05/26/17 Ferrous Sulfate [Iron] 325 mg PO DAILY 08/23/18 Clopidogrel Bisulfate [Plavix] 75 mg PO DAILY 08/26/18 Isosorbide Mononitrate [Imdur] 30 mg PO DAILY 08/26/18 Hydrocortisone Acetate Cream [Anusol Hc] 1 applic RECTAL BID PRN PRN #1 tube 08/27/18 Omeprazole 20 mg PO DAILY #30 capsule. 08/27/18 Warfarin [Coumadin ([facility])] 3 mg PO DAILY #30 tablet 08/27/18 The following prescriptions were given: Hydrocortisone Acetate Cream [Anusol Hc] 1 applic RECTAL BID PRN PRN #1 tube PRN Reason: Hemorrhoids Omeprazole 20 mg PO DAILY #30 capsule. Warfarin [Coumadin ([facility])] 3 mg PO DAILY #30 tablet Primary Care Physician: Elmo Burdick DO [Primary Care Provider] - Please follow up with your Primary Care Physician in: 3-5 days Test Results: Test results from this visit will be discussed in further detail at your follow- up appointment, if applicable.
--- NOTE | 2018-08-27 13:09 | DS.PCM_ITS ---
Discharge Date and Diagnosis - Problem List Patient Problems: Active and Suspected Problems Lower gastrointestinal bleeding (Acute) Orthostatic hypotension (Acute) Acute GI bleeding (Acute) Date of Admission: 08/25/18 Date of Discharge: 08/27/18 - Primary Discharge Diagnosis Active and Suspected Problems Lower gastrointestinal bleeding (Acute) Orthostatic hypotension (Acute) Acute GI bleeding (Acute) - Secondary Discharge Diagnosis Chronic Problems H/O cardiac catheterization (Chronic 08/25/18) Normal coronaries per cath 08/25/[address] [place], [facility] History of TIA (transient ischemic attack) (Chronic) History of syncope (Chronic) Hypothyroidism (Chronic) History of breast cancer (Chronic) Benign essential hypertension (Chronic) Hospital Course and Treatment Consults: General Surgery Operations: None Procedures: Colonoscopy - Impression: - Localized mild inflammation was found at the Sigmoid colon . Biopsied. - Bleeding external and internal hemorrhoids. - The examination was otherwise normal. - I believe the most likely source of her bleeding was from her hemorrhoids. I think that the inflammation that we saw on the sigmoid colon could quite possibly be due to the bowel prep. - There were no signs of active bleeding throughout the colon just the inflammation that was seen in the sigmoid colon area, EGD - Impression: - Normal esophagus. - Gastritis. Biopsied. - Normal examined duodenum. No specimens collected. - Two gastric polyps. Resected and retrieved. - The examination was otherwise normal. Summary of Care Provided: Per HPI: The patient is a 82 year old F who presents with 1 day history of single episode of bright red blood per rectum. Patient was recently hospitalized from 08/23/18 through 08/25/18 for chest pain and cardiac cath procedure. Patient was placed on Plavix yesterday prior to discharge. She has been off of Coumadin for 3 days and was told to discontinue her aspirin 4 days prior to last admission. Patient denies chest pain and shortness of breath. Patient's troponin level was as high as 2.1 during last admission and was treated for a non-STEMI. Patient did have aspirin and Plavix during last admission. She has not re- started her Coumadin which was scheduled to restart today. Patient denies previous stent placement. She notes previous myocardial infarction in 2013. Patient has a pacemaker placed in 2012. She also had a loop recorder placed prior to her pacemaker. She has a history of right breast cancer in 1997 and previous right breast mastectomy. Patient stated she was discharged yesterday and had not had a bowel movement for a few days. When she had a bowel movement last night she noted bright red blood in the toilet and on the toilet paper. She noted in the toilet the blood had mini clots. She denies pain with a bowel movement. She has not had any active bleeding since, however she said she has not had a bowel movement since that time. Patient denies abdominal pain/cramping. She denies melena. She also had blood pressure medications changed yesterday. Patient had come into the ED also with hypotension. She was given a bolus of fluid. Her blood pressure has since improved. Patient notes she is on iron supplements and vitamin B12 for 2 years. Her last colonoscopy and upper scope was in May [address] Oseguera. Findings included a benign gastric polyp. Colon was unremarkable. She denies family history of colon cancer. She denies smoking and occasional alcohol use. She lives alone in a condo. Hospital Course: 1. Bright red blood per rectum -82-year-old female who has been having intermittent bright red blood per rectum for the last couple of months presented because of dizziness after this episode. She is on Coumadin for past history of hypercoagulable state, and she has been on Coumadin for the last 20-30 years. She was recently admitted for an an STEMI and had a cardiac cath that was negative for any significant coronary artery disease, did not require a stent however even her history and the elevation in troponin it was felt prudent to put her on Plavix in addition to her Coumadin. She presented with bright red blood and has underwent a colonoscopy and EGD both of which were negative for any acute bleeding, she does have gastritis and will be discharged with a PPI, and she has significant hemorrhoids she is the likely cause of her bleeding. Of note her hemoglobin has remained stable at 12.6. We will also discharge her with a hemorrhoid cream and she will need to follow-up with her primary care physician in the next week or so. 2. Her other medical diagnoses were evaluated and her home medications were continued where appropriate Patient Problems: Active and Suspected Problems Lower gastrointestinal bleeding (Acute) Orthostatic hypotension (Acute) Acute GI bleeding (Acute) Objective: General: Alert, Oriented x3, Cooperative, No apparent distress HEENT: Atraumatic, PERRLA, EOMI, Normocephalic Oral: Moist Mucosa Neck: Supple, No JVD, Trachea Midline Lungs: Clear to auscultation, Normal air movement, No rhonchi, No wheeze, No rales Cardiovascular: Regular rate, Regular Rhythm, Normal S1, Normal S2, No murmurs, No rub noted, No Gallop Abdomen: Soft, Non Tender, Non-Distended, No Hepato-splenomegaly Extremities: No edema, Capillary Refill Less than 3 Seconds Skin: No rashes, No breakdown Neurological: Neuro grossly intact, Sensory exam intact to light touch and pain Psych/Mental Status: Normal Affect, Appropriate - Physical Exam Vital Signs Temp Pulse Resp BP Pulse Ox 97.9 F 65 16 115/44 L 97 08/27/18 11:51 08/27/18 11:51 08/27/18 11:51 08/27/18 11:51 08/27/18 11:51 Oxygen Flow Rate (L/min) 2 Oxygen Delivery Method Room Air Weight: 150 lb 2.157 oz Body Mass Index (BMI) 23.6 Finger Stick Blood Glucose 98 Orthostatic Vital Signs Start: 08/26/18 06:00 Freq: Status: Active Protocol: Activity Type Activity Date Activity User E-Sign Co-Sign Detail Recorded Client Recorded Date Recorded By Document 08/26/18 06:19 [facility] [id number] 08/26/18 06:29 [facility]/26/18 06:19 Orthostatic Vitals Standing -Blood Pressure (90/60-120/80) 125/78 H -Extremity Use Left Arm -Pulse Rate (60-100) 90 Sitting -Blood Pressure (90/60-120/80) 137/70 H -Extremity Use Left Arm -Pulse Rate (60-100) 75 Lying -Blood Pressure (90/60-120/80) 143/78 H -Extremity Use Left Arm -Pulse Rate (60-100) 70 Intake and Output for Last 24 Hours 08/25/18 08/26/18 08/27/18 23:59 23:59 23:59 Intake Total 2245 / 2245 700 / 700 Output Total 300 / 300 Balance 1945 / 1945 700 / 700 Microbiology Past 72 Hours 08/25/18 22:35 Stool Occult Blood (HARPREET) - Final Stool Occult Blood Positive Laboratory Tests Past 24 Hrs 08/26/18 08/27/18 08/27/18 14:10 05:40 05:40 WBC 5.7 RBC 4.21 Hgb 12.1 12.2 Hct 37.7 38.5 MCV 91.4 MCH 29.0 MCHC 31.7 L RDW 13.3 RDW Differential 43.9 Plt Count 191 MPV 9.3 Immature Gran % (Auto) 0.200 Neut % (Auto) 63.7 Lymph % (Auto) 22.6 Bath % (Auto) 9.3 Eos % (Auto) 4.0 Baso % (Auto) 0.2 Absolute Neuts (auto) 3.7 Absolute Lymphs (auto) 1.29 Total Counted Not Reportable PT INR Sodium 144 Potassium 3.7 Chloride 110 H Carbon Dioxide 25.0 Anion Gap 9 BUN 10 Creatinine 0.65 Estim Creat Clear Calc 42.18 Est GFR (MDRD) Af Amer 112 Est GFR (MDRD) Non-Af 93 BUN/Creatinine Ratio 15.4 Glucose 85 Calcium 8.6 TSH 0.07 L 08/27/18 05:40 WBC RBC Hgb Hct MCV MCH MCHC RDW RDW Differential Plt Count MPV Immature Gran % (Auto) Neut % (Auto) Lymph % (Auto) Bath % (Auto) Eos % (Auto) Baso % (Auto) Absolute Neuts (auto) Absolute Lymphs (auto) Total Counted PT 14.4 INR 1.1 Sodium Potassium Chloride Carbon Dioxide Anion Gap BUN Creatinine Estim Creat Clear Calc Est GFR (MDRD) Af Amer Est GFR (MDRD) Non-Af BUN/Creatinine Ratio Glucose Calcium TSH Discharge Activity: Return to Normal Activity Call your doctor if you observe: Shortness of breath, Dizziness, Chest pain, Increased palpitations (irregular heartbeat) Home Medications: Medications to take at Discharge Amlodipine [Norvasc] 2.5 mg PO QHS 08/20/13 Atorvastatin Calcium [Lipitor] 20 mg PO QHS 08/20/13 Levothyroxine [Synthroid] 88 mcg PO DAILY 08/20/13 Atenolol [Tenormin (beta alissa)] 50 mg PO QHS 05/20/17 Potassium Chloride [Klor-Con 10] 10 meq PO DAILY 05/26/17 Ferrous Sulfate [Iron] 325 mg PO DAILY 08/23/18 Clopidogrel Bisulfate [Plavix] 75 mg PO DAILY 08/26/18 Isosorbide Mononitrate [Imdur] 30 mg PO DAILY 08/26/18 Hydrocortisone Acetate Cream [Anusol Hc] 1 applic RECTAL BID PRN PRN #1 tube 08/27/18 Omeprazole 20 mg PO DAILY #30 capsule. 08/27/18 Warfarin [Coumadin ([facility])] 3 mg PO DAILY #30 tablet 08/27/18 Following Prescrptions Were Given to Patient: Hydrocortisone Acetate Cream [Anusol Hc] 1 applic RECTAL BID PRN PRN #1 tube PRN Reason: Hemorrhoids Omeprazole 20 mg PO DAILY #30 capsule. Warfarin [Coumadin ([facility])] 3 mg PO DAILY #30 tablet Primary Care Physician: Elmo Burdick DO [Primary Care Provider] - Please follow up with your Primary Care Physician in: 3-5 days Disposition: Home Minutes spent on discharge:: 35 Patient Condition:: Good Medical Necessity - Tobacco Use Smoking Status: Never smoker Meaningful Use Info Meaningful Use Diagnoses (Choose all that apply): None applicable Code Visit Inpatient E&M: 79573 Disch Hosp
--- NOTE | 2018-08-27 13:15 | CASEMGMT ---
This RN CM to room to verify discharge plan with pt at this time. Pt states no needs at this time and states she plans to stop on the way home with her friend to get some groceries. Pt voices no further questions/concerns/needs at this time. SStaten MARGARET CM
--- NOTE | 2018-08-28 13:22 | CASEMGMT ---
MARGARET FERGUSON DC PHONE CALL DC DATE: 08/28/18 DC Disposition: Home LACE/STRATA: 05/20 Intro role of CM to patient's daughter via phone. States pt is doing well, medications set up in pill boxes. No questions at this time re: ruben instructions. F/U appointment set up for September 01, 2018. Ben ARIZA RN ACM
== END 2018-08-27 14:37 | disposition home or self-care (01) | DRG 393 ==
LOC: ED 08-26 00:49 → PCU 08-26 00:52
PROVIDERS: Surgery; Admitting Provider Hospitalist; Emergency Provider Emergency Medicine; Family Provider Student in an Organized Health Care Education/Training Program; PCP Student in an Organized Health Care Education/Training Program; Referring Provider Hospitalist; Visit Provider Family Medicine
PROC: 0DJD8ZZ Inspection of Lower Intestinal Tract, Via Natural or Artificial Opening Endoscopic (ICD-10-PCS; CPT 45378; principal; 2018-08-27 10:25)
DX: K64.8 Other hemorrhoids (principal); I21.4 Non-ST elevation (NSTEMI) myocardial infarction; K51.50 Left sided colitis without complications; K64.4 Residual hemorrhoidal skin tags; E78.5 Hyperlipidemia, unspecified; K31.7 Polyp of stomach and duodenum; I95.1 Orthostatic hypotension; K29.70 Gastritis, unspecified, without bleeding; I10 Essential (primary) hypertension; E03.9 Hypothyroidism, unspecified; Z95.0 Presence of cardiac pacemaker; Z90.11 Acquired absence of right breast and nipple; Z85.3 Personal history of malignant neoplasm of breast; Z86.73 Personal history of transient ischemic attack (TIA), and cerebral infarction without residual deficits
CPT/HCPCS: 36415; 71046; 80048; 80053; 81001; 82274; 84443; 84484; 85014; 85018; 85025; 85610; 85730; 88305; 88341; 88342; 97161; 97165; 97535; 97802; 99283; J7030; J7120; A4216; J1610

== ENCOUNTER 2018-11-02 10:54 | Emergency (ER) | payer MEDICARE, OTHER, SELFPAY ==
[2018-08-27 08:45] VITALS: BMI 23.6
[2018-11-02 10:55] VITALS: BP 96/62; PULSE 60; RESP 17; TEMP 36.6; O2SAT 93; BMI 23.0
--- NOTE | 2018-11-02 10:59 | EKG12_ITS ---
Test Reason : SYNCOPE Blood Pressure : / mmHG Vent. Rate : 064 BPM Atrial Rate : 064 BPM P-R Int : 184 ms QRS Dur : 122 ms QT Int : 424 ms P-R-T Axes : 095 -67 -08 degrees QTc Int : 437 ms Atrial-paced rhythm with Premature atrial complexes with Aberrant conduction Right bundle branch block Left anterior fascicular block Bifascicular block Abnormal ECG Confirmed by YOLANDA CRAIG, ZEHRA ([id number]), image editor ZABRINA ALEXANDER ([id number]) on 11/03/2018 2:14:47 PM Referred By: LAUREN Confirmed By:ZEHRA GUERRERO MD
--- NOTE | 2018-11-02 11:05 | RAD_ITS ---
STUDY: X-RAY CHEST REASON FOR EXAM: Female, 82 years old. Cardiac arrest TECHNIQUE: Single PA view of the chest. COMPARISON: Chest x-ray 08/25/2018 FINDINGS: Left-sided dual-lead percutaneous pacemaker. The lungs are clear and expanded. There is no demonstrated pleural abnormality. Normal size heart. Normal mediastinum and roc. Normal visualized pulmonary arteries. There is atherosclerotic tortuosity of the aortic arch and descending thoracic aorta. Normal visualized thoracic spine. Normal visualized ribs, clavicles, and shoulders. There is no demonstrated abnormality of the visualized soft tissue structures of the upper abdomen. RAD/Chest 1 View (Portable) IMPRESSION: Clear lungs. Electronically Signed: Luis Esquivel, at 11:36 EDT Tel , Service support ,
[2018-11-02 11:31] LABS: Absolute Lymphocyte Count 1.53 X10^3/ul (0.83-4.51); Absolute Neutrophil Count 4.4 X10^3/uL (2.0-7.7); Basophil# 0.02 X10^3/uL; Basophil% 0.3 % (0-1); Eosinophil# 0.12 X10^3/uL; Eosinophils% 1.8 % (0-5); Hemoglobin 11.9 g/dl (12.0-15.0); Lymphocyte # 1.53 X10^3/ul (4.0); Mean Corp Hgb Conc 31.3 g/gl (32-36); Mean Corpuscular Hgb 28.5 pg (27.0-32.0); Mean Corpuscular Volume 91.1 fL (81-99); Mean Platelet Vol. 8.9 fl (6.2-12.0); Neutrophil # 4.35 X10^3/uL (2.7-7.7); Neutrophil % 65.6 % (47-70); Platelet Count 223 K/mm3 (150-450); RBC Distribution Width CV 13.4 % (11.6-14.6); RBC Distribution Width SD 43.9 fl (35.1-43.9); Red Blood Count 4.17 M/mm3 (4.2-5.4); White Blood Count 6.6 K/mm3 (4.4-11.0)
[2018-11-02 11:32] LABS: POSITIVE COUNT NO; POSITIVE DIFFERENTIAL NO; POSITIVE MORPHOLOGY NO
[2018-11-02 11:46] LABS: Anion Gap 1 (5-15); BUN 16 mg/dL (7-18); BUN/Creat Ratio 19.6 RATIO (10-20); Calcium,Total 8.3 mg/dL (8.5-10.1); Chloride 113 mmol/L (98-107); Creatinine, Serum 0.82 mg/dL (0.55-1.02); EST Glomerular Filtration Rate 71 mL/min (>60); Est Glom Filt Rate - Afr Amer 86 mL/min (>60); Estimated Creatinine Clearance 51.44 ml/min; Glucose 110 mg/dL (74-106); Potassium 4.2 mmol/L (3.5-5.1); Sodium Level 143 mmol/L (136-145)
[2018-11-02 12:07] VITALS: BP 110/60; PULSE 61; RESP 17; O2SAT 98
[2018-11-02 12:20] VITALS: O2SAT 96
[2018-11-02 12:30] LABS: International Normalized Ratio 2.6; Prothrombin Time (Protime)PT. 27.6 SECONDS (11.7-14.9)
[2018-11-02 13:00] VITALS: BP 125/62; PULSE 63; RESP 14; O2SAT 96
[2018-11-02 14:00] VITALS: PULSE 64; RESP 18
[2018-11-02 14:48] VITALS: BP 142/80; PULSE 62
--- NOTE | 2018-11-02 14:48 | ED.DCSUM_ITS ---
- ER Visit Summary Date of Service: 11/02/18 Chief Complaint: Possible cardiac arrest History of Present Illness: The patient is a 82 F who went to the urgent care this morning for a cough. She was getting breathing treatment and told her friend who noted that she was breathing fast that she felt like she might pass out. Patient reportedly went unconscious and there is no pulse per staff. One compression and the patient woke up. She states she currently has no complaints other than her chest is very sore. She has history of coronary artery disease and had heart catheterization and stents already this year. She is on Coumadin and Plavix. She has a pacemaker. Physical Examination: Afebrile heart rate of 60 blood pressure 96/62 pulse ox 93% on room air respiratory rate 17 Gen: Well-nourished well-developed Head: Normocephalic atraumatic Eyes: Perrl EOMI ENT: TMs clear no rhinorrhea moist mucous membranes Neck: Supple no lymphadenopathy no JVD nontender CVS: Regular rate rhythm no murmurs normal S1-S2 Respiratory: No distress clear to auscultation bilaterally chest nontender Abdomen: Soft nontender nondistended normal bowel sounds no masses Back: Nontender Extremity: Nontender no edema Skin: Normal color no rash Neuro: alert orientated ?3 CN II-XII intact normal strength sensation reflexes gait cerebellar Psych: Normal affect normal mood Test Results: EKG shows a right atrially paced rhythm. Chest x-ray negative. CBC chemistries normal. 2 sets of cardiac enzymes were negative. INR is therapeutic Emergency Department Course and Treatment: Patient had no events on the monitor. We had her pacemaker interrogated which not demonstrate any dysrhythmias today. Ambulating and feels well. She will be discharged home with return if worsening or concerns. Impression: Syncope This note was generated with SimpleMist dictation software. It may contain incorrect words, spelling, and punctuation that were not noted in review of the chart prior to signing ED Disposition - Plan for ED Patient: Disposition: Home or Assisted Living Instructions: ED Fainting Unkn Cause Referrals: Elmo Burdick DO [Primary Care Provider] - 3-5 Days
== END 2018-11-02 15:00 | disposition home or self-care (01) ==
PROVIDERS: Emergency Provider Emergency Medicine; Family Provider Student in an Organized Health Care Education/Training Program; PCP Student in an Organized Health Care Education/Training Program
DX: R55 Syncope and collapse (principal); I25.10 Atherosclerotic heart disease of native coronary artery without angina pectoris; I10 Essential (primary) hypertension; Z95.5 Presence of coronary angioplasty implant and graft; Z95.0 Presence of cardiac pacemaker; Z79.01 Long term (current) use of anticoagulants; Z79.899 Other long term (current) drug therapy
CPT/HCPCS: 71045; 80048; 84484; 85025; 85610; 93005; 99285; J7030; A4216

== ENCOUNTER 2018-12-17 13:24 | Emergency (ER) | payer MEDICARE, OTHER, SELFPAY ==
[2018-12-11 13:05] VITALS: BMI 22.8
[2018-12-17 13:25] VITALS: BP 124/49; PULSE 60; RESP 15; TEMP 37; O2SAT 93; BMI 22.4
[2018-12-17] MEDS: 0.9% Normal Saline 1,000 ML 1000 ML IV (14:53)
[2018-12-17 15:01] LABS: Absolute Lymphocyte Count 1.33 X10^3/ul (0.83-4.51); Absolute Neutrophil Count 6.9 X10^3/uL (2.0-7.7); Basophil# 0.02 X10^3/uL; Basophil% 0.2 % (0-1); Eosinophil# 0.06 X10^3/uL; Eosinophils% 0.7 % (0-5); Hematocrit 36.4 % (37-47); Hemoglobin 11.9 g/dl (12.0-15.0); Lymphocyte # 1.33 X10^3/ul (4.0); Lymphocyte % 14.8 % (19-41); Mean Corp Hgb Conc 32.7 g/gl (32-36); Mean Corpuscular Hgb 28.7 pg (27.0-32.0); Mean Corpuscular Volume 87.9 fL (81-99); Mean Platelet Vol. 9.1 fl (6.2-12.0); Monocyte# 0.68 X10^3/uL; Monocyte% 7.6 % (0-10); Neutrophil # 6.87 X10^3/uL (2.7-7.7); Neutrophil % 76.6 % (47-70); Platelet Count 204 K/mm3 (150-450); RBC Distribution Width CV 13.8 % (11.6-14.6); RBC Distribution Width SD 44.3 fl (35.1-43.9); Red Blood Count 4.14 M/mm3 (4.2-5.4)
[2018-12-17 15:02] LABS: POSITIVE COUNT NO; POSITIVE DIFFERENTIAL NO; POSITIVE MORPHOLOGY NO
[2018-12-17 15:20] LABS: AST(SGOT) 13 U/L (15-37); Alanine Aminotransfer ALT/SGPT 14 U/L (13-56); Albumin, Serum 3.1 g/dL (3.2-5.0); Alkaline Phosphatase 93 U/L (45-117); Anion Gap 5 (5-15); BUN 11 mg/dL (7-18); BUN/Creat Ratio 14.8 RATIO (10-20); Bilirubin, Direct 0.15 mg/dL (0.00-0.30); Calcium,Total 8.4 mg/dL (8.5-10.1); Chloride 109 mmol/L (98-107); Creatinine, Serum 0.74 mg/dL (0.55-1.02); EST Glomerular Filtration Rate 79 mL/min (>60); Est Glom Filt Rate - Afr Amer 96 mL/min (>60); Estimated Creatinine Clearance 41.45 ml/min; Globulin 3.5 g/dL (2.2-4.2); Glucose 91 mg/dL (74-106); Lipase 68 U/L (73-393); Potassium 4.1 mmol/L (3.5-5.1); Protein, Total 6.6 g/dL (6.4-8.2); Sodium Level 142 mmol/L (136-145)
[2018-12-17 15:53] VITALS: BP 126/67; BP 128/67; BP 129/75; PULSE 65; PULSE 73; PULSE 74
--- NOTE | 2018-12-17 16:41 | ED.DEP ---
ED Disposition - Plan for ED Patient: Disposition: Home or Assisted Living Instructions: ED Diarrhea Viral Prescriptions: Loperamide [Imodium] 2 mg PO Q2H PRN PRN #7 cap PRN Reason: Diarrhea Referrals: Elmo Burdick DO [Primary Care Provider] - 3-5 Days if not improving Additional Instructions: Plenty of fluids and rest Imodium for diarrhea. Follow up with your Dr. if diarrhea not getting better. You would then need stool cultures if not getting better
[2018-12-17 16:55] VITALS: BP 129/67; PULSE 74; RESP 16
--- NOTE | 2019-02-03 17:27 | ED.DCSUM_ITS ---
- ER Visit Summary Date of Service: 02/03/19 Chief Complaint: Diarrhea and abdominal pain. This patient was seen in December in the dictation was missed and I will be dictated at this time. Today's date is 02/03/1990. History of Present Illness: The patient is a 83 F history of breast cancer 28, anemia, pacemaker and hysterectomy. States she has been having diarrhea. She feels dehydrated. With some mild abdominal cramping. Denies dysuria. Physical Examination: Older female no acute distress. Vital signs are stable afebrile. Initial blood pressure 124/49. HEENT exam dry mixed memories. Neck nontender no lymphadenopathy. Lungs clear to auscultation. Heart regular rhythm no murmur. Abdomen soft. Nondistended. Normal bowel sounds no peritoneal signs. No signs of obstruction. Patient moving all 4 extremities. Neurologically she is awake and alert. Test Results: CBC showed a white count 9. Hemoglobin 11 which is her baseline anemia. No bands. Chemistries unremarkable normal creatinine and gap. Liver enzymes normal. Lipase normal. Emergency Department Course and Treatment: Patient was treated with normal saline. On repeat exam she was feeling better and was comfortable being discharged home. Treatment Plan: Fluids and rest. Imodium as needed for diarrhea. Disposition: Discharge Impression: Acute diarrhea secondary to viral syndrome Abdominal pain This note was generated with Im[employer]ga dictation software. It may contain incorrect words, spelling, and punctuation that were not noted in review of the chart prior to signing ED Disposition - Plan for ED Patient: Disposition: Home or Assisted Living Instructions: DIARRHEA, Viral (Child) (Adult) Referrals: Elmo Burdick, DO [Primary Care Provider] - 3-5 Days if not improving Additional Instructions: Plenty of fluids and rest Imodium for diarrhea. Follow up with your Dr. if diarrhea not getting better. You would then need stool cultures if not getting better
== END 2018-12-17 17:00 | disposition home or self-care (01) ==
PROVIDERS: Emergency Provider Emergency Medicine; Family Provider Student in an Organized Health Care Education/Training Program; PCP Student in an Organized Health Care Education/Training Program
DX: B34.9 Viral infection, unspecified (principal); R19.7 Diarrhea, unspecified; R10.9 Unspecified abdominal pain; D64.9 Anemia, unspecified; I25.2 Old myocardial infarction; Z85.3 Personal history of malignant neoplasm of breast; Z79.01 Long term (current) use of anticoagulants; Z79.899 Other long term (current) drug therapy
CPT/HCPCS: 80048; 80076; 83690; 85025; 96360; 96361; 99284; J7030

== ENCOUNTER 2018-12-30 10:21 | Emergency (ER) | payer MEDICARE, OTHER, SELFPAY ==
[2018-12-30 10:22] VITALS: BP 117/83; PULSE 63; PULSE 66; RESP 17; TEMP 36.5; O2SAT 91; BMI 25.4
--- NOTE | 2018-12-30 10:32 | EKG12_ITS ---
Test Reason : SYNCOPE Blood Pressure : / mmHG Vent. Rate : 081 BPM Atrial Rate : 081 BPM P-R Int : 190 ms QRS Dur : 126 ms QT Int : 406 ms P-R-T Axes : 000 -72 032 degrees QTc Int : 471 ms Atrial-paced rhythm Right bundle branch block Left anterior fascicular block Bifascicular block Abnormal ECG Confirmed by ARACELI LINDER ([id number]), commissioning editor MELISSA RANDALL ([id number]) on 01/04/2019 2:42:51 PM Referred By: SANTI Confirmed By:ISAI LINDER
--- NOTE | 2018-12-30 10:32 | RAD_ITS ---
STUDY: X-RAY CHEST REASON FOR EXAM: Female, 83 years old. Syncopal episode following vomiting. History of right breast cancer. TECHNIQUE: AP and lateral views of the chest. COMPARISON: Comparison is made with prior examination dated November 02, 2018. FINDINGS: EKG electrodes are seen. The patient is status post right mastectomy. Hyperinflation. Minimal left basilar linear scarring. There is no demonstrated pleural abnormality. Normal size heart. A left-sided dual-chamber pacemaker is seen. Normal mediastinum and roc. Normal visualized pulmonary arteries. There is atherosclerotic calcification of the aortic arch with tortuosity. Normal visualized thoracic spine. Normal visualized ribs, clavicles, and shoulders. There is no demonstrated abnormality of the visualized soft tissue structures of the upper abdomen. RAD/Chest PA and Lateral IMPRESSION: Hyperinflation. No acute abnormality is seen. Electronically Signed: Jj Good, at 11:40 EDT , Service support ,
--- NOTE | 2018-12-30 10:34 | ED.VIS.GEN ---
History of Present Illness Chief Complaint: Syncope Informant: Patient Onset: Today Context: Sudden Onset Timing: Intermittent - x1, Lasts - unk - likely several minutes Quality: syncope Current Severity: gone Maximum Severity: Severe Worsened by: n/a Relieved by: n/a Associated Symptoms: n/v Narrative: Patient was sitting in her car, windows open, relatively cool ambient outside temperatures on a nice day, waiting for family members to do her grocery shopping while she waited in the parking lot. She suddenly started feeling lightheaded, this progressed to syncope. She vomited. She denies any headache, focal neurologic symptoms or vision change, palpitations, shortness of breath, or chest discomfort. She denies having any abdominal pain. She now feels fine. She has never had this happen before. 5 months ago she was admitted to the hospital after having a small AL, she had no stent/angioplasty. She has a pacemaker that was placed 6-7 years ago for reasons unknown. She is on Coumadin for reasons unknown. Patient is poor historian does not know her medications. No hospitalizations since 5 months ago, no recent long travel or immobilization. No known history of DVT or PE. - Past Medical History (1) Benign essential hypertension Status: Chronic (2) History of TIA (transient ischemic attack) Status: Chronic (3) History of syncope Status: Chronic Comment: 11/02/2018 (4) Hypothyroidism Status: Chronic Past Medical History - Allergies and Home Meds Allergies/Adverse Reactions: Allergies omeprazole Allergy (Severe, Verified 12/30/18 10:21) Swelling Tongue swelling, was able to take IV lasix levofloxacin [From Levaquin] Allergy (Verified 12/30/18 10:21) Angioedema lisinopril Allergy (Verified 12/30/18 10:21) Swelling Penicillins Allergy (Verified 12/30/18 10:21) Itching Sulfa (Sulfonamide Antibiotics) Allergy (Verified 12/30/18 10:21) Angioedema Primary Care Physician: Elmo Burdick DO [Primary Care Provider] - Surgical History: mastectomy, - - Pacemaker placement, cardiac catheterization, loop recorder implantation, right mastectomy; and plate in left arm. Smoking Status: Former smoker Drugs: None - Family History Maternal Family History: Family History (Last Reviewed 12/11/18 @ 13:05 by Sindhu Mayorga) Father Myocardial infarction Family History: Reports: - - Patient does not know Paternal Family History: Family History (Last Reviewed 12/11/18 @ 13:05 by Sindhu Mayorga) Father Myocardial infarction Family History: Reports: - - Patient does not know Review of Systems General: Reports: - - no recent illness. Denies: Chills, Fever, Sweats Eyes: Denies: Visual changes - bilaterally, Diplopia ENT: Denies: Rhinorrhea, Sore throat Cardiovascular: Denies: Chest pain, Palpitations Respiratory: Denies: Dyspnea, Cough, Dyspnea on exertion Gastrointestinal: Reports: Nausea - gone, Vomiting - gone. Denies: Abdominal pain, Diarrhea, Melena, Hematochezia Genitourinary: Denies: Dysuria, Hematuria, Frequency Musculoskeletal: Reports: Swelling - BLE, chronic, unchanged. Denies: Back pain, Extremity Pain Skin: Denies: Rash, Wounds Neurological: Denies: Headache, Weakness, Numbness Endocrine: Denies: Polyuria, Polydipsia, Heat intolerance, Cold intolerance Hematologic: Reports: Easy bruising, Easy bleeding Allergy: Denies: Swelling of the mouth, Swelling of the tongue Physical Exam Vital Signs/Narrative: Vital Signs Temp Pulse Resp BP Pulse Ox 12/30/18 10:22 97.7 F L 63 17 117/83 H 91 Inital Vital Signs reviewed: Yes General: Well nourished, Well developed, No Acute Distress Head: Normocephalic, Atraumatic Eyes: Perrl, EOMI ENT: Moist mucous membranes, No rhinorrhea Neck: Supple, Nontender, No JVD Cardiovascular: Regular rate, Regular rhythm, No murmurs Respiratory: No distress, CTA bilaterally, Chest nontender Abdomen: Soft, Nontender, Nondistended, Normal bowel sounds Back: Nontender, Normal Inspection Extremities: Nontender, Edema - 1+ BLE symmetric. no sign of cellulitis. Skin: Normal color, No rash, No Trauma. Negative for: Jaundice Neurological: Alert, Oriented x3, Cranial nerves II-XII grossly intact, Normal Strength, Normal Sensation, Normal DTR Psychological: Normal affect, Normal Mood Diagnostic/Tx/Re-eval Impressions Chest X-Ray 12/30/18 10:32 IMPRESSION: Hyperinflation. No acute abnormality is seen. Electronically Signed: Jj Good, at 11:40 EDT , Service support , 12/30/18 10:32 Chest PA and Lateral [RAD] Stat Laboratory Results 12/30/18 12/30/18 12/30/18 10:50 10:50 10:50 WBC 5.3 RBC 4.44 Hgb 12.5 Hct 39.0 MCV 87.8 MCH 28.2 MCHC 32.1 RDW 13.6 RDW Differential 43.0 Plt Count 279 MPV 9.1 Immature Gran % (Auto) 0.000 Neut % (Auto) 57.0 Lymph % (Auto) 33.1 [place] % (Auto) 7.2 Eos % (Auto) 2.3 Baso % (Auto) 0.4 Absolute Neuts (auto) 3.0 Absolute Lymphs (auto) 1.75 Total Counted Not Reportable PT 25.0 H INR 2.3 Sodium 142 Potassium 3.8 Chloride 110 H Carbon Dioxide 30.0 Anion Gap 2 L BUN 10 Creatinine 0.79 Estim Creat Clear Calc 41.45 Est GFR (MDRD) Af Amer 89 Est GFR (MDRD) Non-Af 74 BUN/Creatinine Ratio 12.6 Glucose 119 H Calcium 8.4 L Troponin I 0.045 - Rhythm Strip Rhythm Strip: Sinus Rhythm Rate: 81 Ectopy: None - EKG Initial EKG Interpretation: Sinus Rhythm, No Acute Injury Pattern, RBBB, LAFB Prior: Unchanged - Medical Decision Making Work-up unremarkable, patient's vital signs remained stable with her blood pressure actually going up into the 130s from the 117 range, orthostatics were unremarkable and she felt better when she stood up compared to 2 prior to arrival. We did a bedside query of her [employer] pacemaker, it showed no events today. She has only had 2 tachycardic events in the past 2-3 months, and neither of them were today. Her leads are functioning appropriately. I discussed with Dr. Covington who advised discontinuing her low-dose nightly amlodipine and cutting her atenolol in half, and having her follow-up if her orthostatics are unremarkable, which they are. Discussed at length with patient and family and they are comfortable with this plan. ED Disposition - Plan for ED Patient: Disposition: Home or Assisted Living Diagnosis: Syncope Instructions: ED Fainting Unkn Cause Prescriptions: Atenolol 25 mg PO DAILY #30 tab Referrals: Elmo Burdick DO [Primary Care Provider] - Earl Covington MD [STAFF PHYSICIAN] - 3-5 Days Additional Instructions: Discontinue your nightly amlodipine.
[2018-12-30 10:59] LABS: Absolute Lymphocyte Count 1.75 X10^3/ul (0.83-4.51); Basophil# 0.02 X10^3/uL; Basophil% 0.4 % (0-1); Eosinophil# 0.12 X10^3/uL; Eosinophils% 2.3 % (0-5); Hemoglobin 12.5 g/dl (12.0-15.0); Lymphocyte # 1.75 X10^3/ul (4.0); Lymphocyte % 33.1 % (19-41); Mean Corp Hgb Conc 32.1 g/gl (32-36); Mean Corpuscular Hgb 28.2 pg (27.0-32.0); Mean Corpuscular Volume 87.8 fL (81-99); Mean Platelet Vol. 9.1 fl (6.2-12.0); Monocyte# 0.38 X10^3/uL; Monocyte% 7.2 % (0-10); Neutrophil # 3.02 X10^3/uL (2.7-7.7); Platelet Count 279 K/mm3 (150-450); RBC Distribution Width CV 13.6 % (11.6-14.6); Red Blood Count 4.44 M/mm3 (4.2-5.4); White Blood Count 5.3 K/mm3 (4.4-11.0)
[2018-12-30 11:00] LABS: POSITIVE COUNT NO; POSITIVE DIFFERENTIAL NO; POSITIVE MORPHOLOGY NO
[2018-12-30 11:07] LABS: International Normalized Ratio 2.3
[2018-12-30 11:16] LABS: Anion Gap 2 (5-15); BUN 10 mg/dL (7-18); BUN/Creat Ratio 12.6 RATIO (10-20); Calcium,Total 8.4 mg/dL (8.5-10.1); Chloride 110 mmol/L (98-107); Creatinine, Serum 0.79 mg/dL (0.55-1.02); EST Glomerular Filtration Rate 74 mL/min (>60); Est Glom Filt Rate - Afr Amer 89 mL/min (>60); Estimated Creatinine Clearance 41.45 ml/min; Glucose 119 mg/dL (74-106); Potassium 3.8 mmol/L (3.5-5.1); Sodium Level 142 mmol/L (136-145)
[2018-12-30] MEDS: Ondansetron 4 MG/2 ML Vial IV (11:30)
--- NOTE | 2018-12-30 12:32 | PCA ---
PAGED DMITRY HE CALLED BACK
[2018-12-30 15:30] VITALS: BP 119/81; BP 144/79; BP 147/60; PULSE 61; PULSE 68; PULSE 77
[2018-12-30 15:38] VITALS: BP 119/81; PULSE 89; RESP 20; O2SAT 92
[2018-12-30 16:21] VITALS: BP 130/73; PULSE 71; RESP 18
== END 2018-12-30 16:22 | disposition home or self-care (01) ==
PROVIDERS: Emergency Provider Emergency Medicine; Family Provider Student in an Organized Health Care Education/Training Program; PCP Student in an Organized Health Care Education/Training Program
DX: R55 Syncope and collapse (principal); E03.9 Hypothyroidism, unspecified; I10 Essential (primary) hypertension; I25.2 Old myocardial infarction; Z95.0 Presence of cardiac pacemaker; Z79.01 Long term (current) use of anticoagulants; Z79.899 Other long term (current) drug therapy; Z86.73 Personal history of transient ischemic attack (TIA), and cerebral infarction without residual deficits; Z87.891 Personal history of nicotine dependence
CPT/HCPCS: 71046; 80048; 84484; 85025; 85610; 93005; 96361; 96374; 99285; J7040; A4216; J2405

== ENCOUNTER → 2019-01-26 09:59 | Outpatient (CLI) | payer MEDICARE, OTHER, SELFPAY ==
[2019-01-22 10:11] VITALS: BMI 22.2
== END ==
PROVIDERS: Family Provider Student in an Organized Health Care Education/Training Program; PCP Student in an Organized Health Care Education/Training Program; Referring Provider Internal Medicine Cardiovascular Disease; Visit Provider Internal Medicine Cardiovascular Disease
DX: R03.0 Elevated blood-pressure reading, without diagnosis of hypertension (principal)
CPT/HCPCS: 93788

== ENCOUNTER → 2019-03-17 10:43 | Outpatient (CLI) | payer MEDICARE, OTHER, SELFPAY ==
[2019-01-22 10:11] VITALS: BMI 22.2
[2019-03-17 11:49] LABS: EXAGEN MAILED SPECIMEN
[2019-03-17 12:28] LABS: Absolute Lymphocyte Count 2.21 X10^3/uL (0.83-4.51); Absolute Neutrophil Count 2.8 X10^3/uL (2.0-7.7); Basophil# 0.01 X10^3/uL; Basophil% 0.2 % (0-1); Eosinophil# 0.16 X10^3/uL; Eosinophils% 2.8 % (0-5); Hematocrit 41.3 % (37-47); Hemoglobin 13.3 g/dL (12.0-15.0); Lymphocyte # 2.21 X10^3/ul (4.0); Mean Corp Hgb Conc 32.2 g/dL (32-36); Mean Corpuscular Volume 90.2 fL (81-99); Mean Platelet Vol. 9.7 fl (6.2-12.0); Monocyte# 0.47 X10^3/uL; Monocyte% 8.3 % (0-10); NRBC Flagged by Analyzer 0 % (0-5); Neutrophil # 2.81 X10^3/uL (2.7-7.7); Neutrophil % 49.5 % (47-70); Platelet Count 249 K/mm3 (150-450); RBC Distribution Width CV 13.2 % (11.6-14.6); Red Blood Count 4.58 M/mm3 (4.2-5.4); White Blood Count 5.7 K/mm3 (4.4-11.0)
[2019-03-17 12:36] LABS: Color, Urine Yellow (Yellow); Glucose, Dipstick Normal (Normal); Ketone-Dipstick Negative (Negative); Leukocyte Esterase-Dipstick Negative /ul (Negative); Nitrite-Dipstick Negative (Negative); Occult Blood-Urine Negative /ul (Negative); Protein-Dipstick Negative (Negative); Urine Bilirubin Dipstick Negative (Negative); Urine Clarity Clear (Clear); Urine Urobilinogen Normal (Normal)
[2019-03-17 12:53] LABS: Protein, Urine (Random) 15.3 mg/dL (<11.9); Protein:Creat Ratio 94 mg/g CRE (0-200)
[2019-03-17 13:01] LABS: ALB/GLOB Ratio 0.9 RATIO (0.9-2.4); AST(SGOT) 16 U/L (15-37); Alanine Aminotransfer ALT/SGPT 18 U/L (13-56); Albumin, Serum 3.4 g/dL (3.2-5.0); Alkaline Phosphatase 98 U/L (45-117); Anion Gap 4 (5-15); BUN 17 mg/dL (7-18); BUN/Creat Ratio 21.6 RATIO (10-20); Calcium,Total 9.1 mg/dL (8.5-10.1); Chloride 107 mmol/L (98-107); Creatinine, Serum 0.79 mg/dL (0.55-1.02); EST Glomerular Filtration Rate 74 mL/min (>60); Est Glom Filt Rate - Afr Amer 90 mL/min (>60); Globulin 3.8 g/dL (2.2-4.2); Glucose 99 mg/dL (74-106); Potassium 4.6 mmol/L (3.5-5.1); Protein, Total 7.2 g/dL (6.4-8.2); Sodium Level 140 mmol/L (136-145)
[2019-03-17 13:28] LABS: Hepatitis B Surface Antibody Non-Reactive; Hepatitis B Surface Antigen Non-Reactive (Nonreactive); Hepatitis C Antibody Non-Reactive (Nonreactive)
[2019-03-18 15:23] LABS: Hepatitis B Core AB IgM Negative (Negative)
== END ==
PROVIDERS: Family Provider Student in an Organized Health Care Education/Training Program; PCP Student in an Organized Health Care Education/Training Program; Referring Provider Internal Medicine Rheumatology; Visit Provider Internal Medicine Rheumatology
DX: M06.4 Inflammatory polyarthropathy (principal); R76.8 Other specified abnormal immunological findings in serum; R55 Syncope and collapse; I25.5 Ischemic cardiomyopathy; I83.90 Asymptomatic varicose veins of unspecified lower extremity; Z95.0 Presence of cardiac pacemaker
CPT/HCPCS: 36415; 80053; 81002; 82570; 84156; 85025; 86705; 86706; 86803; 87340

== ENCOUNTER → 2019-04-12 09:31 | Outpatient (CLI) | payer MEDICARE, OTHER, SELFPAY ==
[2019-01-22 10:11] VITALS: BMI 22.2
[2019-04-12 11:48] LABS: AST(SGOT) 16 U/L (15-37); Alanine Aminotransfer ALT/SGPT 17 U/L (13-56); Albumin, Serum 3.3 g/dL (3.2-5.0); Alkaline Phosphatase 94 U/L (45-117); Bilirubin, Direct 0.13 mg/dL (0.00-0.30); Cholesterol 134 mg/dL (200); Globulin 4.1 g/dL (2.2-4.2); Protein, Total 7.4 g/dL (6.4-8.2); Triglycerides 92 mg/dL
[2019-04-12 11:49] LABS: High Density Lipoprotein 53 mg/dL; Very Low Density Lipoprotein 18 mg/dL (5-40)
== END ==
PROVIDERS: Family Provider Student in an Organized Health Care Education/Training Program; PCP Student in an Organized Health Care Education/Training Program; Referring Provider Internal Medicine Cardiovascular Disease; Visit Provider Internal Medicine Cardiovascular Disease
DX: E78.5 Hyperlipidemia, unspecified (principal)
CPT/HCPCS: 36415; 80061; 80076

== ENCOUNTER 2019-08-14 16:46 | Emergency (ER) | payer MEDICARE, OTHER, SELFPAY ==
[2019-07-23 13:31] VITALS: BMI 22.1
[2019-08-14 16:52] VITALS: BP 150/78; PULSE 65; RESP 18; TEMP 36.9; BMI 24.6
[2019-08-14 17:08] VITALS: BP 115/66; PULSE 83; RESP 28
--- NOTE | 2019-08-14 18:23 | RAD_ITS ---
STUDY: X-RAY CHEST REASON FOR EXAM: Female, 83 years old. SUDDEN ONSET DIZZINESS -- HX CT TECHNIQUE: AP portable COMPARISON: None. FINDINGS: Lungs are hyperinflated but clear.. Mild diaphragmatic calcific plaquing.. Normal size heart. Normal mediastinum and roc. Normal visualized pulmonary arteries. Mildly calcified aortic arch and descending thoracic aorta. Pacer noted on the left with electrodes in satisfactory position. Normal visualized thoracic spine. Normal visualized ribs, clavicles, and shoulders. There is no demonstrated abnormality of the visualized soft tissue structures of the upper abdomen. RAD/Chest 1 View (Portable) IMPRESSION: ASHD. No acute disease Electronically Signed: Norman Floyd MD at 20:12 EST , Service support ,
--- NOTE | 2019-08-14 18:23 | EKG12_ITS ---
Test Reason : DYSRHYTHMIA Blood Pressure : / mmHG Vent. Rate : 066 BPM Atrial Rate : 066 BPM P-R Int : 158 ms QRS Dur : 128 ms QT Int : 426 ms P-R-T Axes : 076 -74 040 degrees QTc Int : 446 ms Normal sinus rhythm Right bundle branch block Left anterior fascicular block Bifascicular block Abnormal ECG Confirmed by YOLANDA CRAIG, ZEHRA ([id number]), editor in chief newspaper ZABRINA ALEXANDER ([id number]) on 08/17/2019 10:02:26 AM Referred By: MARQUIS Confirmed By:ZEHRA GUERRERO MD
--- NOTE | 2019-08-14 18:23 | CT_ITS ---
STUDY: CT BRAIN WITHOUT CONTRAST REASON FOR EXAM: Female, 83 years old. NEAR SYNCOPE RADIATION DOSAGE (If Supplied By Facility): CTDIvol = ( 44.99 ) mGy, DLP = ( 745.49 ) mGycm TECHNIQUE: Transaxial CT imaging of the brain was performed without administration of intravenous contrast material. Individualized dose optimization techniques were used for this CT. COMPARISON: No relevant priors. FINDINGS: Normal soft tissue structures. Normal calvarium. Mild atrophy and advanced periventricular white matter ischemic changes. There is an old infarct in the right frontal parietal region.. Normal basal ganglia and thalami. Normal brainstem. Normal cerebellum. There is no intracranial hemorrhage. There are no findings of an acute ischemic infarction. Post surgical changes of the orbits. Normal visualized paranasal sinuses. No significant change since prior exam CT/Brain/Head without Contrast IMPRESSION: Advanced periventricular white matter ischemic changes and old right parietal infarct. No acute bleed. If concern for acute infarct MRI recommended Electronically Signed: Norman Floyd MD at 21:08 EST , Service support ,
[2019-08-14 18:42] LABS: Absolute Lymphocyte Count 1.95 X10^3/uL (0.83-4.51); Absolute Neutrophil Count 2.9 X10^3/uL (2.0-7.7); Basophil# 0.03 X10^3/uL; Basophil% 0.5 % (0-1); Eosinophils% 3.5 % (0-5); Hematocrit 38.4 % (37-47); Hemoglobin 12.4 g/dL (12.0-15.0); Lymphocyte # 1.95 X10^3/ul (4.0); Lymphocyte % 34.1 % (19-41); Mean Corp Hgb Conc 32.3 g/dL (32-36); Mean Corpuscular Hgb 29.5 pg (27.0-32.0); Mean Corpuscular Volume 91.4 fL (81-99); Mean Platelet Vol. 9.5 fl (6.2-12.0); Monocyte# 0.59 X10^3/uL; Monocyte% 10.3 % (0-10); NRBC Flagged by Analyzer 0 % (0-5); Neutrophil # 2.94 X10^3/uL (2.7-7.7); Neutrophil % 51.4 % (47-70); Platelet Count 214 K/mm3 (150-450); RBC Distribution Width CV 13.2 % (11.6-14.6); RBC Distribution Width SD 44.4 fl (35.1-43.9); White Blood Count 5.7 K/mm3 (4.4-11.0)
[2019-08-14 18:46] LABS: International Normalized Ratio 2.2; Prothrombin Time (Protime)PT. 24.1 SECONDS (11.7-14.9)
[2019-08-14] MEDS: 0.9% Normal Saline 1,000 ML 1000 ML IV (18:58)
[2019-08-14 19:03] LABS: Anion Gap 3 (5-15); BUN 18 mg/dL (7-18); Calcium,Total 8.6 mg/dL (8.5-10.1); Chloride 114 mmol/L (98-107); Creatinine, Serum 0.86 mg/dL (0.55-1.02); EST Glomerular Filtration Rate 67 mL/min (>60); Est Glom Filt Rate - Afr Amer 81 mL/min (>60); Glucose 94 mg/dL (74-106); Potassium 4.3 mmol/L (3.5-5.1); Sodium Level 146 mmol/L (136-145)
[2019-08-14 19:43] VITALS: BP 150/69; BP 151/79; BP 165/83; PULSE 67; PULSE 73; PULSE 80
[2019-08-14 21:00] VITALS: BP 157/79; PULSE 67; RESP 18
--- NOTE | 2019-08-14 21:27 | ED.DCSUM_ITS ---
- ER Visit Summary Date of Service: 08/14/19 Chief Complaint: Dizziness History of Present Illness: The patient is a 83 F who presents with dizziness that she describes as a lightheadedness. She was at dinner. She tried standing up and feels like she almost passed out. She had trouble standing. She norm ally requires assistance to ambulate or she uses a walker. Denies vision changes, speech changes, facial droop, weakness, numbness. History of TIA, coronary disease, hyperlipidemia, and breast cancer in remission. She does take Coumadin. Physical Examination: Afebrile and vital signs unremarkable. Head and neck atraumatic. HEENT exam normal. Cranial nerves grossly intact. Heart regular. Lungs clear. Abdomen soft. Skin appears normal. Good strength and sensation, symmetric. Normal affect. Test Results: EKG showed sinus rhythm at a rate of 66 with right bundle branch block pattern and left anterior fascicular block pattern. No sign of acute ischemia or infarction pattern. Chest x-ray showed nothing acute. CT brain showed an old right-sided infarct but nothing acute. She has degenerative changes. CBC, BMP, troponin unremarkable. INR is therapeutic at 2.2. Emergency Department Course and Treatment: Patient placed on a monitor. Treated with IV fluids. Orthostatics were negative. Work-up, as above, was unremarkable. Patient symptoms have completely resolved. She has nothing to suggest acute stroke. No chest pain or signs and symptoms of vascular process. No other associated symptoms. I believe she is appropriate for outpatient follow-up. Patient would like to go home. She feels comfortable. She was advised to return for any new or worsening issues. Treatment Plan: As above Disposition: Discharge Impression: 1. Near syncope This note was generated with Biscoot dictation software. It may contain incorrect words, spelling, and punctuation that were not noted in review of the chart prior to signing ED Disposition - Plan for ED Patient: Referrals: Elmo Burdick DO [Primary Care Provider] -
--- NOTE | 2019-08-14 21:30 | ED.DEP ---
ED Disposition - Plan for ED Patient: Instructions: NEAR SYNCOPE, Unknown Referrals: Elom Burdick DO [Primary Care Provider] -
[2019-08-14 21:35] VITALS: BP 168/80; PULSE 77; RESP 18
== END 2019-08-14 21:36 | disposition home or self-care (01) ==
PROVIDERS: Emergency Provider Emergency Medicine; Family Provider Student in an Organized Health Care Education/Training Program; PCP Student in an Organized Health Care Education/Training Program
DX: R55 Syncope and collapse (principal); I25.10 Atherosclerotic heart disease of native coronary artery without angina pectoris; I25.2 Old myocardial infarction; E78.5 Hyperlipidemia, unspecified; Z79.01 Long term (current) use of anticoagulants; Z86.73 Personal history of transient ischemic attack (TIA), and cerebral infarction without residual deficits
CPT/HCPCS: 70450; 71045; 80048; 84484; 85025; 85610; 93005; 99285; J7030; A4216

== ENCOUNTER 2020-01-17 10:27 | Observation (INO) | payer MEDICARE, OTHER, SELFPAY ==
[2020-01-17] VITALS (8 sets, daily range): BP systolic 149–177; BP diastolic 68–88; PULSE 64–96; RESP 14–20; TEMP 36.2–36.8; O2SAT 93–96; BMI 23.6; BMI 22.5; BMI 22.6
--- NOTE | 2020-01-17 10:43 | EKG12_ITS ---
Test Reason : DIZZINESS Blood Pressure : / mmHG Vent. Rate : 088 BPM Atrial Rate : 088 BPM P-R Int : 206 ms QRS Dur : 128 ms QT Int : 400 ms P-R-T Axes : 074 -72 022 degrees QTc Int : 484 ms Atrial-paced rhythm Right bundle branch block Left anterior fascicular block Bifascicular block Abnormal ECG Confirmed by DONNY CRAIG, KLEVER ([id number]), acquisition editor MELISSA RANDALL ([id number]) on 01/20/2020 10:21:26 AM Referred By: /SHANNAN Confirmed By:KLEVER HINES MD
--- NOTE | 2020-01-17 10:44 | ED.DCSUM_ITS ---
History of Present Illness Chief Complaint: Dizziness Narrative: Patient is an 84-year-old female who presents with near syncope. This began at rest while sitting at the kitchen table she became very lightheaded and thought she may pass out although she did not completely lose consciousness. She does still feel dizzy although this is less severe than it was earlier. She denies any associated pain. No chest pain shortness of breath nausea or diaphoresis. She notes that she recently had a strong odor to her urine and began drinking cranberry juice which did seem to help. She otherwise has no complaints or recent illness. Past Medical History - Allergies and Home Meds Allergies/Adverse Reactions: Allergies omeprazole Allergy (Severe, Verified 04/08/19 09:52) Swelling Tongue swelling, was able to take IV lasix levofloxacin [From Levaquin] Allergy (Verified 04/08/19 09:52) Angioedema lisinopril Allergy (Verified 04/08/19 09:52) Swelling Penicillins Allergy (Verified 04/08/19 09:52) Itching Sulfa (Sulfonamide Antibiotics) Allergy (Verified 04/08/19 09:52) Angioedema amlodipine Adverse Reaction (Severe, Verified 07/23/19 13:38) severe hypotension Primary Care Physician: Elmo Burdick DO [Primary Care Provider] - Past Medical History: - - Hypertension, AICD Surgical History: mastectomy, - - Pacemaker placement, cardiac catheterization, loop recorder implantation, right mastectomy; and plate in left arm. Smoking Status: Former smoker - Family History Maternal Family History: Family History (Last Reviewed 07/23/19 @ 13:32 by Sindhu Mayorga) Father Myocardial infarction Sister CAD (coronary artery disease) Family History: Reports: - - Patient does not know Paternal Family History: Family History (Last Reviewed 07/23/19 @ 13:32 by Sindhu Mayorga) Father Myocardial infarction Sister CAD (coronary artery disease) Family History: Reports: - - Patient does not know Review of Systems All systems negative except as indicated General: Denies: Fever Eyes: Denies: Visual changes - bilaterally ENT: Denies: Bilateral ear pain Cardiovascular: Reports: - - Near syncope. Denies: Chest pain Respiratory: Denies: Dyspnea Gastrointestinal: Denies: Nausea, Vomiting, Diarrhea Genitourinary: Reports: - - Strong odor and concentration urine. Denies: Dysuria Musculoskeletal: Denies: Myalgias Skin: Denies: Rash Neurological: Denies: Headache Allergy: Denies: Uticaria Physical Exam Vital Signs/Narrative: Vital Signs Temp Pulse Resp BP Pulse Ox 01/17/20 10:28 98.1 F 66 20 H 149/68 H 93 Inital Vital Signs reviewed: Yes General: Well nourished Head: Normocephalic Eyes: EOMI ENT: Moist mucous membranes Neck: Supple Cardiovascular: Regular rate, Regular rhythm Respiratory: No distress, CTA bilaterally Abdomen: Soft, Nontender Extremities: Nontender, No edema, - - Easily palpable symmetric radial pulses Skin: Normal color Neurological: Alert Psychological: Normal affect Diagnostic/Tx/Re-eval Impressions Chest X-Ray 01/17/20 11:07 IMPRESSION: Hyperinflation. The lungs are clear. Electronically Signed: Jj Latisha, at 12:12 EDT , Service support , 01/17/20 11:07 Chest 1 View (Portable) [RAD] Stat Laboratory Results 01/17/20 01/17/20 01/17/20 10:35 10:35 10:35 WBC 5.9 RBC 4.44 Hgb 12.9 Hct 40.8 MCV 91.9 MCH 29.1 MCHC 31.6 L RDW Std Deviation 43.1 RDW Coeff of Duc 12.9 Plt Count 241 MPV 9.1 Immature Gran % (Auto) 0.300 Neut % (Auto) 50.0 Lymph % (Auto) 37.7 [place] % (Auto) 7.4 Eos % (Auto) 4.1 Baso % (Auto) 0.5 Absolute Neuts (auto) 3.0 Absolute Lymphs (auto) 2.23 Nucleated RBC % 0 PT 26.5 H INR 2.5 Sodium 143 Potassium 3.7 Chloride 108 H Carbon Dioxide 31.0 Anion Gap 4 L BUN 11 Creatinine 0.79 Estim Creat Clear Calc 40.72 Est GFR (MDRD) Af Amer 89 Est GFR (MDRD) Non-Af 74 BUN/Creatinine Ratio 14.0 Glucose 111 H Calcium 8.7 Troponin I 0.078 H - Medical Decision Making EKG shows an atrial paced rhythm at a rate of 88 with right bundle branch block and left anterior fascicular block. Laboratory studies as above notable for troponin of 0.078. We did have the patient's pacemaker interrogated. EMS had reported possible runs of ventricular tachycardia. There were no runs of VT. The [employer] rep notes that the patient has been having atrial fibrillation with RVR. Her indeterminate troponin therefore is most likely related to episodes of tachycardia/RVR. The patient will likely need further evaluation and management including rate control. The [employer] community health program representative also noted that there were some features on the pacemaker that should likely be turned on by default that are not enabled. Patient was discussed with the hospitalist and will be admitted. ED Disposition - Plan for ED Patient: Disposition: Acute Care Hospital [facility] Diagnosis: Atrial fibrillation with RVR, Elevated troponin Referrals: Elmo Burdick DO [Primary Care Provider] -
[2020-01-17 10:50] LABS: Absolute Lymphocyte Count 2.23 X10^3/uL (0.83-4.51); Basophil# 0.03 X10^3/uL; Basophil% 0.5 % (0-1); Eosinophil# 0.24 X10^3/uL; Eosinophils% 4.1 % (0-5); Hematocrit 40.8 % (37-47); Hemoglobin 12.9 g/dL (12.0-15.0); Lymphocyte # 2.23 X10^3/ul (4.0); Lymphocyte % 37.7 % (19-41); Mean Corp Hgb Conc 31.6 g/dL (32-36); Mean Corpuscular Hgb 29.1 pg (27.0-32.0); Mean Corpuscular Volume 91.9 fL (81-99); Mean Platelet Vol. 9.1 fl (6.2-12.0); Monocyte# 0.44 X10^3/uL; Monocyte% 7.4 % (0-10); NRBC Flagged by Analyzer 0 % (0-5); Neutrophil # 2.95 X10^3/uL (2.7-7.7); Platelet Count 241 K/mm3 (150-450); RBC Distribution Width CV 12.9 % (11.6-14.6); RBC Distribution Width SD 43.1 fl (35.1-43.9); Red Blood Count 4.44 M/mm3 (4.2-5.4); White Blood Count 5.9 K/mm3 (4.4-11.0)
[2020-01-17 11:03] LABS: International Normalized Ratio 2.5; Prothrombin Time (Protime)PT. 26.5 SECONDS (11.7-14.9)
[2020-01-17 11:05] LABS: Anion Gap 4 (5-15); BUN 11 mg/dL (7-18); Calcium,Total 8.7 mg/dL (8.5-10.1); Chloride 108 mmol/L (98-107); Creatinine, Serum 0.79 mg/dL (0.55-1.02); EST Glomerular Filtration Rate 74 mL/min (>60); Est Glom Filt Rate - Afr Amer 89 mL/min (>60); Estimated Creatinine Clearance 40.72 ml/min; Glucose 111 mg/dL (74-106); Potassium 3.7 mmol/L (3.5-5.1); Sodium Level 143 mmol/L (136-145)
--- NOTE | 2020-01-17 11:07 | RAD_ITS ---
STUDY: X-RAY CHEST REASON FOR EXAM: Female, 84 years old. Chest pain and dizziness TECHNIQUE: Single AP portable view of the chest. COMPARISON: Comparison is made with prior study dated August 14, 2019. FINDINGS: EKG electrodes are seen. There is hyperinflation of the lungs consistent with chronic obstructive lung disease (COPD). There is no demonstrated pleural abnormality. Normal size heart. A left-sided dual-chamber pacemaker is seen. Normal mediastinum and roc. Normal visualized pulmonary arteries. There is atherosclerotic calcification of the aortic arch with tortuosity. There are degenerative changes of the visualized thoracic spine. Normal visualized ribs, clavicles, and shoulders. There is no demonstrated abnormality of the visualized soft tissue structures of the upper abdomen. RAD/Chest 1 View (Portable) IMPRESSION: Hyperinflation. The lungs are clear. Electronically Signed: Jj Good, at 12:12 EDT , Service support ,
--- NOTE | 2020-01-17 12:33 | PCM.DC.SUM ---
Discharge Date and Diagnosis Date of Admission: 08/25/18 Date of Discharge: 01/17/20 - Secondary Discharge Diagnosis Chronic Problems: Chronic Problems (Last Reviewed 07/23/19 @ 13:32 by Sindhu Mayorga) Pacemaker (Chronic) History of syncope (Chronic) 11/02/2018 RBBB (Chronic) History of non-ST elevation myocardial infarction (NSTEMI) (Chronic 08/23/18) H/O cardiac catheterization (Chronic 08/25/18) Normal coronaries per cath 08/25/[address] C[place], [facility] History of TIA (transient ischemic attack) (Chronic) Benign essential hypertension (Chronic) Hyperlipidemia (Chronic) Hypothyroidism (Chronic) History of right mastectomy (Chronic) History of breast cancer (Chronic) History of vasculitis (Chronic) Hospital Course and Treatment Imaging Results: 01/17/20 11:07 Chest 1 View (Portable) [RAD] Stat Operations: None Summary of Care Provided: The patient is a 84 year old F [] - Physical Exam Vitals/I&O's: Vital Signs Temp Pulse Resp BP Pulse Ox 98.1 F 66 20 H 149/68 H 93 01/17/20 10:28 01/17/20 10:28 01/17/20 10:28 01/17/20 10:28 01/17/20 10:28 Oxygen Delivery Method Room Air Weight: 68.3 kg Body Mass Index (BMI) 23.6 Finger Stick Blood Glucose 98 Laboratory Results 01/17/20 10:35: WBC 5.9, RBC 4.44, Hgb 12.9, Hct 40.8, MCV 91.9, MCH 29.1, MCHC 31.6 L, RDW Std Deviation 43.1, RDW Coeff of Duc 12.9, Plt Count 241, MPV 9.1, Immature Gran % (Auto) 0.300, Neut % (Auto) 50.0, Lymph % (Auto) 37.7, [place] % (Auto) 7.4, Eos % (Auto) 4.1, Baso % (Auto) 0.5, Absolute Neuts (auto) 3.0, Absolute Lymphs (auto) 2.23, Nucleated RBC % 0 01/17/20 10:35: PT 26.5 H, INR 2.5 01/17/20 10:35: Sodium 143, Potassium 3.7, Chloride 108 H, Carbon Dioxide 31.0, Anion Gap 4 L, BUN 11, Creatinine 0.79, Estim Creat Clear Calc 40.72, Est GFR (MDRD) Af Amer 89, Est GFR (MDRD) Non-Af 74, BUN/Creatinine Ratio 14.0, Glucose 111 H, Calcium 8.7, Troponin I 0.078 H Home Medications: Medications to take at Discharge Atorvastatin Calcium [Lipitor] 20 mg PO QHS 08/20/13 Cyanocobalamin (Vitamin B-12) [B-12] 1,000 mcg PO DAILY 11/02/18 Potassium Chloride [Klor-Con 10] 10 meq PO DAILY 11/02/18 Warfarin [Coumadin] 1 mg PO SUMOTUWETHFR 11/02/18 warfarin 3 mg tablet 3 mg PO SA 12/11/18 ferrous sulfate 325 mg (65 mg iron) tablet 325 mg PO BID tab 04/08/19 levothyroxine 75 mcg tablet 75 mcg PO DAILY 04/08/19 atenolol 25 mg tablet 25 mg PO DAILY #30 tab 08/20/19 isosorbide mononitrate 30 mg tablet,extended release 24 hr 30 mg PO DAILY #90 tab 10/29/19 Primary Care Physician: Elmo Burdick DO [Primary Care Provider] - Medical Necessity - Tobacco Use Smoking Status: Former smoker
--- NOTE | 2020-01-17 12:34 | HP.PCM_ITS ---
Problem List (1) Atrial fibrillation with RVR Status: Acute (2) Elevated troponin Status: Acute (3) Elevated blood pressure reading in office with white coat syndrome, without diagnosis of hypertension Status: Chronic (4) Pacemaker Status: Chronic (5) Orthostatic hypotension Status: Chronic (6) History of syncope Status: Chronic Comment: 11/02/2018 (7) RBBB Status: Chronic (8) History of non-ST elevation myocardial infarction (NSTEMI) Status: Chronic (9) H/O cardiac catheterization Status: Chronic Comment: Normal coronaries per cath 08/25/[address] Covington [facility] (10) History of TIA (transient ischemic attack) Status: Chronic (11) Benign essential hypertension Status: Chronic (12) Lower gastrointestinal bleeding Status: Acute (13) Hyperlipidemia Status: Chronic (14) Hypothyroidism Status: Chronic (15) History of right mastectomy Status: Chronic (16) History of breast cancer Status: Chronic (17) History of vasculitis Status: Chronic (18) Pre-syncope Status: Acute (19) Pre-syncope Status: Acute History of Present Illness Date of Admission: 01/17/20 Chief Complaint: Lightheadedness The patient is a 84 year old F's medical history significant for paroxysmal A. fib, history of conduction system disorder status post pacemaker placement, hist ory of acute non-STEMI who presented with lightheadedness. Patient states that she was in her usual state of health when she developed sudden onset of lightheadedness. Patient felt she was going to pass out. She managed to call her sister who in turn called the squad. Patient was subsequently brought to the emergency department. Initial work-up demonstrated elevated troponin in the indeterminate zone. Had a pacer check and subsequently admitted to monitored bed for further management Past Medical History Past Medical History (Chronic Problems): Chronic Problems (Last Reviewed 01/17/20 @ 13:[address] Nick Quiñonez MD) Elevated blood pressure reading in office with white coat syndrome, without diagnosis of hypertension (Chronic) Pacemaker (Chronic) Orthostatic hypotension (Chronic) History of syncope (Chronic) 11/02/2018 RBBB (Chronic) History of non-ST elevation myocardial infarction (NSTEMI) (Chronic 08/23/18) H/O cardiac catheterization (Chronic 08/25/18) Normal coronaries per cath 08/25/[address] Covington [facility] History of TIA (transient ischemic attack) (Chronic) Benign essential hypertension (Chronic) Hyperlipidemia (Chronic) Hypothyroidism (Chronic) History of right mastectomy (Chronic) History of breast cancer (Chronic) History of vasculitis (Chronic) Medical History: Medical History (Last Reviewed 01/17/20 @ 13:[address] Nick Quiñonez MD) Elevated blood pressure reading in office with white coat syndrome, without diagnosis of hypertension (Chronic) R03.0 Orthostatic hypotension (Chronic) I95.1 Syncope (Resolved) R55 History of syncope (Chronic) Z87.898 11/02/2018 RBBB (Chronic) I45.10 History of non-ST elevation myocardial infarction (NSTEMI) (Chronic) Onset Date: 08/23/18 I25.2 History of TIA (transient ischemic attack) (Chronic) Benign essential hypertension (Chronic) I10 Lower gastrointestinal bleeding (Acute) K92.2 Hyperlipidemia (Chronic) E78.5 Hypothyroidism (Chronic) E03.9 History of breast cancer (Chronic) Z85.3 History of vasculitis (Chronic) Z86.79 Back pain M54.9 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 Gastric polyp K31.7 Osteoarthritis of spine M47.9 Abnormal stress test R94.39 Hypokalemia E87.6 Orthostatic hypotension (Resolved) I95.1 Allergies omeprazole Allergy (Severe, Verified 04/08/19 09:52) Swelling Tongue swelling, was able to take IV lasix levofloxacin [From Levaquin] Allergy (Verified 04/08/19 09:52) Angioedema lisinopril Allergy (Verified 04/08/19 09:52) Swelling Penicillins Allergy (Verified 04/08/19 09:52) Itching Sulfa (Sulfonamide Antibiotics) Allergy (Verified 04/08/19 09:52) Angioedema amlodipine Adverse Reaction (Severe, Verified 07/23/19 13:38) severe hypotension Home Medications: Ambulatory Orders Medication Instructions Recorded Atorvastatin Calcium [Lipitor] 20 mg PO QHS 08/20/13 Cyanocobalamin (Vitamin B-12) 1,000 mcg PO DAILY 11/02/18 [B-12] Potassium Chloride [Klor-Con 10] 10 meq PO DAILY 11/02/18 warfarin 3 mg tablet 3 mg PO DAILY 12/11/18 ferrous sulfate 325 mg (65 mg 325 mg PO BID tab 04/08/19 iron) tablet levothyroxine 75 mcg tablet 75 mcg PO DAILY 04/08/19 atenolol 25 mg tablet 25 mg PO DAILY #30 tab 08/20/19 isosorbide mononitrate 30 mg 30 mg PO DAILY #90 tab 10/29/19 tablet,extended release 24 hr Warfarin Sodium [Coumadin] 1 mg PO SUTUTHSA 01/17/20 Surgical History: Surgical History (Last Reviewed 01/17/20 @ 13:[address] Nick Quiñonez MD) Pacemaker (Chronic) Z95.0 H/O cardiac catheterization (Chronic) Onset Date: 08/25/18 Z98.890 Normal coronaries per cath 08/25/[address] Covington, [facility] History of right mastectomy (Chronic) Z90.11 History of colonoscopy Onset Date: ~08/2018 Z98.890 History of esophagogastroduodenoscopy (EGD) Onset Date: ~08/2018 Z98.890 History of open reduction and internal fixation (ORIF) procedure Z98.890 left arm Surgical History: mastectomy, - - Pacemaker placement, cardiac catheterization, loop recorder implantation, right mastectomy; and plate in left arm. Psychiatric History: No pertinent psych hx PARALEGAL SPECIALIST History: No pertinent PARALEGAL SPECIALIST history Smoking Status: Former smoker - *Family History Maternal Family History: Family History (Last Reviewed 01/17/20 @ 13:[address] Nick Quiñonez MD) Father Myocardial infarction Sister CAD (coronary artery disease) History Items: - - Patient does not know Paternal Family History: Family History (Last Reviewed 01/17/20 @ 13:[address] Nick Quiñonez MD) Father Myocardial infarction Sister CAD (coronary artery disease) History Items: - - Patient does not know Review of Systems Constitutional: Denies: Anorexia, Chills, Fever, Night Sweats, Weight Change HEENT: Denies: Head Aches, Sinus Congestion, Sinus Drainage Cardiovascular: Reports: Light Headedness. Denies: Chest Pain, Orthopnea, Palpitations, Paroxysmal Noc. Dyspnea Respiratory: Denies: Cough, Shortness of breath at rest, Shortness of breath upon exertion, Sputum production Gastrointestinal: Denies: Abdominal Pain, Hematemesis, Hematochezia, Nausea, Melena, Vomiting Genitourinary: Denies: Dysuria, Frequency, Hematuria, Urgency Musculoskeletal: Denies: Joint Pain, Joint Tenderness Skin: Denies: Rash Neurological: Denies: Focal weakness, Numbness, Tingling Psychiatric: Denies: Homicidal Ideations, Suicidal Ideations Hematologic/ Lymphatic: Denies: Easy Bruising, Easy Bleeding VTE Information - Inpt Only VTE Present on Admission: No VTE Mechan Device Prophylaxis: None VTE Pharm Prophylaxis ordered?: Yes Patient Problems: Active and Suspected Problems (Last Reviewed 01/17/20 @ 13:[address] Nick Quiñonez MD) Atrial fibrillation with RVR (Acute) Elevated troponin (Acute) Pre-syncope (Acute) Pre-syncope (Acute) Objective: GENERAL: cooperative HEENT: Atraumatic; EYES; Anicteric, Normal Conjunctiva NECK; supple, normal thyroid, RESPIRATORY: Diminished to auscultation CARDIOVASCULAR: Irregularly irregular GI: soft, normoactive bowel sounds, : No Renal angle tenderness; EXTREMITIES: No edema, no clubbing, MUSCULOSKELETAL: no muscle waisting NEURO: Awake; no lateralizing signs. SKIN: No Rash PSYCH; Flat affect - Physical Exam Vitals/I&O's: Vital Signs Temp Pulse Resp BP Pulse Ox 98.1 F 66 20 H 149/68 H 93 01/17/20 10:28 01/17/20 10:28 01/17/20 10:28 01/17/20 10:28 01/17/20 10:28 Oxygen Delivery Method Room Air Weight: 68.3 kg Body Mass Index (BMI) 23.6 Finger Stick Blood Glucose 98 Laboratory Results 01/17/20 10:35: WBC 5.9, RBC 4.44, Hgb 12.9, Hct 40.8, MCV 91.9, MCH 29.1, MCHC 31.6 L, RDW Std Deviation 43.1, RDW Coeff of Duc 12.9, Plt Count 241, MPV 9.1, Immature Gran % (Auto) 0.300, Neut % (Auto) 50.0, Lymph % (Auto) 37.7, [place] % (Auto) 7.4, Eos % (Auto) 4.1, Baso % (Auto) 0.5, Absolute Neuts (auto) 3.0, Absolute Lymphs (auto) 2.23, Nucleated RBC % 0 01/17/20 10:35: PT 26.5 H, INR 2.5 01/17/20 10:35: Sodium 143, Potassium 3.7, Chloride 108 H, Carbon Dioxide 31.0, Anion Gap 4 L, BUN 11, Creatinine 0.79, Estim Creat Clear Calc 40.72, Est GFR (MDRD) Af Amer 89, Est GFR (MDRD) Non-Af 74, BUN/Creatinine Ratio 14.0, Glucose 111 H, Calcium 8.7, Troponin I 0.078 H Assessment/Plan All Active Problems (Last Reviewed 01/17/20 @ 13:[address] Nick Quiñonez MD) Atrial fibrillation with RVR (Acute) Elevated troponin (Acute) Pre-syncope (Acute) Pre-syncope (Acute) Syncope (Resolved) Lower gastrointestinal bleeding (Acute) Acute GI bleeding (Resolved) Orthostatic hypotension (Resolved) Patient is an 84-year-old lady presented with lightheadedness 1. Presyncopal episode ?Patient admitted to monitored bed for continuous telemetry monitoring. As part of her management ordered every shift orthostatics, serial cardiac enzymes and echo 2. Paroxysmal A. fib ?EKG on admission demonstrated A. fib but with controlled rate patient on systemic anticoagulation with warfarin did continue with serial monitoring of INR 3. Conduction system disorder status post pacemaker placement ?Patient apparently underwent pacer check in the ED 4. Dyslipidemia -Patient is on statin therapy, continued at home dose 5. Hypothyroidism - Patient is on levothyroxine home dose continued 6. History of breast CA -status post mastectomy followed by adjuvant chemotherapy patient has remained in remission for 20 years 7. Hypertension - Blood pressure controlled, home medications continued with dose adjustment as needed 8. DVT prophylaxis ?Patient on systemic anticoagulation with Coumadin Advance planning; did discuss with the patient regarding advanced directives as well as CODE STATUS. Did explain the various scenarios involved ( FULL CODE, DNR CCA, DNR CCA with no intubation, and DNR CC and what each meant) patient elected to remain full code with intubation if indicated. Order was placed. Time spent on discussion 18 minutes. OBSV E&M: 74553 Initial observation care L3 Procedures: 24548 Advncd Care Plan 30 Min
[2020-01-17 12:56] LABS: Bacteria 0 SEEN /hpf (None Seen); Mucous, Urine 0 SEEN /hpf (<or=2+); Red Blood Cells-Urine 0 SEEN /hpf (0-5); Squamous Epithelial Cells - UA 0 SEEN /hpf (5-10); White Blood Cells 0 SEEN /hpf (0-5)
[2020-01-17 12:57] LABS: Color, Urine Yellow (Yellow); Glucose, Dipstick Normal (Normal); Ketone-Dipstick Negative (Negative); Leukocyte Esterase-Dipstick Negative /ul (Negative); Nitrite-Dipstick Negative (Negative); Occult Blood-Urine Negative /ul (Negative); Protein-Dipstick Negative (Negative); Specific Gravity, Urine 1.005 (1.002-1.030); Urine Bilirubin Dipstick Negative (Negative); Urine Clarity Clear (Clear); Urine Urobilinogen Normal (Normal); Urine pH 6.5 (5.0 - 8.0)
--- NOTE | 2020-01-17 15:17 | ECHOCS_ITS ---
Reason For Study: SYNCOPE Procedure This was a 2D Doppler, Color Flow transthoracic echocardiogram. The study was technically difficult. Contrast injection was performed. Exam performed portable in patient room. Left Ventricle Normal LV size. Mild segmental systolic dysfunction (see wall motion). The estimated ejection fraction is 45 %. Diastolic function is indeterminate. Lateral-Basal: Hypokinetic. Posterior-Basal: Hypokinetic. Infero-Basal: Hypokinetic. Basal inferoseptal: Hypokinetic. Mid-Lateral : Hypokinetic. Right Ventricle Normal RV size. ICD or pacer leads identified within the right ventricle. Normal systolic function. Atria The left atrium is mildly enlarged. Normal right atrium. ICD or pacer leads identified within the right atrium. No doppler evidence for ASD. Mitral Valve There is moderate mitral annular calcification. Extension of the mitral annular calcification onto the base of the posterior mitral valve leaflet. Mild focal mitral valve calcification of the anterior leaflet. Mild (1+) mitral valve insufficiency. Tricuspid Valve Normal tricuspid valve. Mild tricuspid valve insufficiency. Right ventricular systolic pressure estimated to be 35 mmHg. Aortic Valve Trisinus/trileaflet aortic valve. Mild focal aortic valve calcification. Pulmonic Valve The pulmonic valve is not well visualized. Trivial pulmonic valve insufficiency. Great Vessels Normal sized aortic root. Pericardium/Pleural No pericardial effusion. Medication Diluted definity 4.0ml given slow IV push to enhance endocardial definition. MMode/2D Measurements & Calculations LVIDd: 5.1 cm IVSd: 1.2 cm Ao root diam: 2.8 cm LVIDs: 3.7 cm LVPWd: 0.95 cm RVDd: 3.4 cm FS: 28.6 % LAV(MOD-bp): 45.3 ml LA A4 area: 15.6 cm2 LA dimension(2D): 4.0 cm LAV(MOD-bp) Indexed: 25.7 ml/m2 LAV(MOD-sp2): 54.8 ml LAV(MOD-sp4): 37.3 ml RA A4 area: 11.8 cm2 Time Measurements MV dec time: 0.43 sec Doppler Measurements & Calculations MV E max sanjiv: 56.7 cm/sec Lat Peak E' Sanjiv: 4.6 cm/sec Med Peak E' Sanjiv: 4.8 cm/sec MV A max sanjiv: 104.7 cm/sec E/E' lat: 12.4 E/E' med: 11.9 MV E/A: 0.54 MV V2 max: 114.4 cm/sec Ao V2 max: 162.8 cm/sec LV V1 max: 117.1 cm/sec MV max P.2 mmHg Ao max P.6 mmHg LV V1 max P.5 mmHg MV V2 mean: 64.7 cm/sec MV mean P.9 mmHg MV V2 VTI: 25.8 cm PA V2 max: 78.6 cm/sec PI end-d sanjiv: 114.4 cm/sec TR max sanjiv: 283.0 cm/sec TR max P.2 mmHg MV P1/2t-pr_phl: 91.9 msec Interpretation Summary The study was technically difficult. Contrast injection was performed. Mild segmental systolic dysfunction (see wall motion). The estimated ejection fraction is 45 %. There is moderate mitral annular calcification. Extension of the mitral annular calcification onto the base of the posterior mitral valve leaflet. Mild focal mitral valve calcification of the anterior leaflet. Mild (1+) mitral valve insufficiency. Mild tricuspid valve insufficiency. Mild focal aortic valve calcification. Trivial pulmonic valve insufficiency. Right ventricular systolic pressure estimated to be 35 mmHg. Diastolic function is indeterminate. Ordering Physician: Nick Quiñonez Referring Physician: PEPPER TOVAR Performed By: Melissa Murphy, HANH, RVT
[2020-01-17] MEDS: Ferrous Sulfate 325 MG Tablet PO (17:23)
[2020-01-17] MEDS: Atorvastatin Calcium 20 MG Tablet PO (20:56)
[2020-01-17] MEDS: 0.9% Saline Lock 10 ML Syringe IV (20:58)
[2020-01-18] VITALS (10 sets, daily range): BP systolic 128–143; BP diastolic 54–74; PULSE 63–89; RESP 16; TEMP 36.7–36.9; O2SAT 92–95
[2020-01-18] MEDS: Levothyroxine 75 MCG Tablet PO (05:34)
[2020-01-18 06:01] LABS: Absolute Lymphocyte Count 2.24 X10^3/uL (0.83-4.51); Absolute Neutrophil Count 3.2 X10^3/uL (2.0-7.7); Basophil# 0.03 X10^3/uL; Basophil% 0.5 % (0-1); Eosinophils% 3.2 % (0-5); Hematocrit 41.8 % (37-47); Hemoglobin 13.2 g/dL (12.0-15.0); Lymphocyte # 2.24 X10^3/ul (4.0); Lymphocyte % 36.2 % (19-41); Mean Corp Hgb Conc 31.6 g/dL (32-36); Mean Corpuscular Hgb 28.8 pg (27.0-32.0); Mean Corpuscular Volume 91.1 fL (81-99); Mean Platelet Vol. 9.1 fl (6.2-12.0); Monocyte# 0.51 X10^3/uL; Monocyte% 8.2 % (0-10); NRBC Flagged by Analyzer 0 % (0-5); Neutrophil % 51.7 % (47-70); Platelet Count 217 K/mm3 (150-450); RBC Distribution Width SD 42.5 fl (35.1-43.9); Red Blood Count 4.59 M/mm3 (4.2-5.4); White Blood Count 6.2 K/mm3 (4.4-11.0)
[2020-01-18 06:11] LABS: International Normalized Ratio 2.3; Prothrombin Time (Protime)PT. 25.2 SECONDS (11.7-14.9)
[2020-01-18 06:32] LABS: Anion Gap 4 (5-15); BUN 13 mg/dL (7-18); BUN/Creat Ratio 15.9 RATIO (10-20); Calcium,Total 8.7 mg/dL (8.5-10.1); Chloride 111 mmol/L (98-107); Creatinine, Serum 0.82 mg/dL (0.55-1.02); EST Glomerular Filtration Rate 71 mL/min (>60); Est Glom Filt Rate - Afr Amer 86 mL/min (>60); Estimated Creatinine Clearance 49.66 ml/min; Glucose 96 mg/dL (74-106); Sodium Level 144 mmol/L (136-145)
[2020-01-18] MEDS: Atenolol 25 MG Tablet PO (08:24)
[2020-01-18] MEDS: Cyanocobalamin 500 MCG Tablet 1000 MCG PO (08:24)
[2020-01-18] MEDS: Isosorbide Mononitrate 30 MG Tablet PO (08:24)
--- NOTE | 2020-01-18 12:13 | PN_ITS ---
<Tulio Dan - Last Filed: 01/18/20 12:13> Patient Problems: Active and Suspected Problems (Last Reviewed 01/17/20 @ 13:[address] Nick Quiñonez MD) Atrial fibrillation with RVR (Acute) Elevated troponin (Acute) Pre-syncope (Acute) Pre-syncope (Acute) Reason for Visit: Near syncope Subjective: Pt reported that she was walking from room to room in her house and felt like she was physically struck across her entire body with a slab. She states she nearly passed out. She denies any pain. She denied lightheadedness. She denies palpitations. Today she has no CP/pressure/tightness/SOB/palp. She denies LH/dizziness. Vitals/I&O's: Vital Signs Temp Pulse Resp BP Pulse Ox 98.5 F 63 16 130/54 H 95 01/18/20 08:20 01/18/20 08:20 01/18/20 08:20 01/18/20 08:20 01/18/20 08:20 Oxygen Delivery Method Room Air Weight: 145 lb 11.609 oz Body Mass Index (BMI) 22.5 Finger Stick Blood Glucose 98 Orthostatic Vital Signs Start: 01/17/20 15:51 Freq: q24h Status: Active Protocol: Activity Type Activity Date Activity User E-Sign Co-Sign Detail Recorded Client Recorded Date Recorded By Document 01/18/20 03:00 MAB [id number] 01/18/20 03:59 MAB 01/18/20 03:00 Orthostatic Vitals Standing -Blood Pressure (90/60-120/80) 128/72 H -Extremity Use Left Arm -Pulse Rate (60-100) 89 Sitting -Blood Pressure (90/60-120/80) 133/74 H -Extremity Use Left Arm -Pulse Rate (60-100) 82 Lying -Blood Pressure (90/60-120/80) 143/63 H -Extremity Use Left Arm -Pulse Rate (60-100) 72 Intake and Output for Last 24 Hours 01/16/20 01/17/20 01/18/20 23:59 23:59 23:59 Intake Total 740 / 740 50 / 50 Balance 740 / 740 50 / 50 General: Alert, Oriented x3, Cooperative HEENT: Atraumatic, PERRLA, EOMI, Normocephalic Neck: Supple, No JVD, Negative Carotid Bruits Lungs: Clear to auscultation, Normal air movement Cardiovascular: Regular rate, Murmur - 2/6 systolic murmur LSB 2nd ICS Abdomen: Bowel Sounds Present, Soft, Non Tender Extremities: No edema, Capillary Refill Less than 3 Seconds Skin: No rashes, No breakdown Musculoskeletal: No Tenderness to Palpation of Joints or Extremities Neurological: Cranial nerves II-XII grossly intact Psych/Mental Status: Normal Affect, Appropriate Laboratory Results 01/17/20 12:50: Urine Color Yellow, Urine Clarity Clear, Urine pH 6.5, Ur Specific [place] 1.005, Urine Protein Negative, Urine Glucose (UA) Normal, Urine Ketones Negative, Urine Occult Blood Negative, Urine Nitrite Negative, Urine Bilirubin Negative, Urine Urobilinogen Normal, Ur Leukocyte Esterase Negative, Urine RBC 0 SEEN, Urine WBC 0 SEEN, Ur Squamous Epith Cells 0 SEEN, Urine Bacteria 0 SEEN, Urine Mucus 0 SEEN 01/17/20 16:14: Troponin I 0.078 H 01/17/20 19:04: Troponin I 0.092 H 01/18/20 05:50: WBC 6.2, RBC 4.59, Hgb 13.2, Hct 41.8, MCV 91.1, MCH 28.8, MCHC 31.6 L, RDW Std Deviation 42.5, RDW Coeff of Duc 13.0, Plt Count 217, MPV 9.1, Immature Gran % (Auto) 0.200, Neut % (Auto) 51.7, Lymph % (Auto) 36.2, Shasta % (Auto) 8.2, Eos % (Auto) 3.2, Baso % (Auto) 0.5, Absolute Neuts (auto) 3.2, Absolute Lymphs (auto) 2.24, Nucleated RBC % 0 01/18/20 05:50: PT 25.2 H, INR 2.3 01/18/20 05:50: Sodium 144, Potassium 4.0, Chloride 111 H, Carbon Dioxide 29.0, Anion Gap 4 L, BUN 13, Creatinine 0.82, Estim Creat Clear Calc 49.66, Est GFR (MDRD) Af Amer 86, Est GFR (MDRD) Non-Af 71, BUN/Creatinine Ratio 15.9, Glucose 96, Calcium 8.7, Magnesium 2.0 Current Medications Acetaminophen (Tylenol) 650 mg PO Q6H PRN PRN PRN Reason: Pain Score 1-10/Temp > 100.7 F Al Hydroxide/Mg Hydroxide (Mylanta Ii) 30 ml PO Q6H PRN PRN PRN Reason: Gastric Burning Albuterol Sulfate (Ventolin Aerosols) 2.5 mg INHALATION Q2H PRN PRN PRN Reason: SOB/Wheezing Atenolol (Tenormin (Beta Candace)) 25 mg PO DAILY [facility] Last Admin: 01/18/20 08:24 Dose: 25 mg Documented by: Atorvastatin Calcium (Lipitor) 20 mg PO QHS [facility] Last Admin: 01/17/20 20:56 Dose: 20 mg Documented by: Cyanocobalamin (Vitamin B12) [facility] Last Admin: 01/18/20 08:24 Dose: 1,000 mcg Documented by: Ferrous Sulfate (Ferrous Sulfate) 325 mg PO BID@1200,1700 [facility] Last Admin: 01/17/20 17:23 Dose: 325 mg Documented by: Sodium Chloride () 250 mls @ 15 mls/hr IV .[id number] PRN PRN Reason: Saline Flush Sodium Chloride () 250 mls @ 15 mls/hr IV .[id number] PRN PRN Reason: Additional IVPB Infusion Isosorbide Mononitrate (Imdur) 30 mg PO DAILY [facility] Last Admin: 01/18/20 08:24 Dose: 30 mg Documented by: Levothyroxine Sodium (Synthroid) 75 mcg PO DAILY@0600 [facility] Last Admin: 01/18/20 05:34 Dose: 75 mcg Documented by: Melatonin (Melatonin) 3 mg PO QHS PRN PRN PRN Reason: INSOMNIA Nitroglycerin (Nitrostat) 0.4 mg SUBLINGUAL Q5M PRN PRN Reason: CARDIAC/CHEST PAIN Potassium Chloride (K-Dur) 10 meq [facility] Last Admin: 01/18/20 08:24 Dose: 10 meq Documented by: Prochlorperazine Edisylate (Compazine Iv) 5 mg IV Q4H PRN PRN PRN Reason: Breakthrough Nausea/Vomiting Senna/Docusate Sodium (Senokot-S, Sendy-Colace) 2 tablet PO BID PRN PRN PRN Reason: Constipation Sodium Chloride () 10 - 40 ml IV UD PRN PRN Reason: SALINE FLUSH Last Admin: 01/17/20 20:58 Dose: 10 ml Documented by: Warfarin Sodium (Coumadin (Pbkc)) 1 mg PO SuTuThSa@1700 [facility] Warfarin Sodium (Jantoven) 3 mg PO DAILY@1700 [facility] Last Admin: 01/17/20 17:23 Dose: 3 mg Documented by: STROKE Vital Signs/Narrative: Vital Signs Temp Pulse Resp BP Pulse Ox 01/18/20 08:20 98.5 F 63 16 130/54 H 95 Medical Necessity - Tobacco Use Smoking Status: Former smoker Assessment/Plan All Active Problems (Last Reviewed 01/17/20 @ 13:[address] Nick Quiñonez MD) Atrial fibrillation with RVR (Acute) Elevated troponin (Acute) Pre-syncope (Acute) Pre-syncope (Acute) Syncope (Resolved) Lower gastrointestinal bleeding (Acute) Acute GI bleeding (Resolved) Orthostatic hypotension (Resolved) 1. Near syncope, indeterminate trop - consult Cardiology. EKG with paced rhythm. Pacer check in ER showed Afib/RVR and that some of the pacer settings that should have been enabled were disabled per ER report. EKG is A-paced, RBBB, bifasicular block. Echo is pending. UA is neg. Orthos are negative. CXR neg for acute process. Pt of Dr. Covington. Mag 2.0. Check TSH. Had syncope 12/2018 at which time atenolol was decreased. She is asymptomatic today. 2. Hx Afib, SSS - A paced, as above reports of Afib/RVR on pacer check. Ok overnight here. Atenolol, coumadin. OAC despite hx GI bleed. 3. CAD, hx nstemi - on imdur, statin, beta candace. Heart cath 08/2018 showed normal Coronaries, mild segmental LV dysfunction. 4. Hx TIA - warfarin, statin 5. Hx breast cancer in remission 6. Hypothyroidism - check tsh, continue synthroid. DVT ppx: warfarin INR therapeutic, check INR in AM This patient was seen by Tulio Dan PA-C under the supervision of Dr. Quiñonez. <Nick Quiñonez - Last Filed: 01/18/20 15:12> Vitals/I&O's: Vital Signs Temp Pulse Resp BP Pulse Ox 98.5 F 74 16 130/54 H 95 01/18/20 08:20 01/18/20 13:05 01/18/20 08:20 01/18/20 08:20 01/18/20 08:20 Oxygen Delivery Method Room Air Weight: 66.1 kg Body Mass Index (BMI) 22.5 Finger Stick Blood Glucose 98 Orthostatic Vital Signs Start: 01/17/20 15:51 Freq: q24h Status: Active Protocol: Activity Type Activity Date Activity User E-Sign Co-Sign Detail Recorded Client Recorded Date Recorded By Document 01/18/20 03:00 MAB [id number] 01/18/20 03:59 MAB 01/18/20 03:00 Orthostatic Vitals Standing -Blood Pressure (90/60-120/80) 128/72 H -Extremity Use Left Arm -Pulse Rate (60-100) 89 Sitting -Blood Pressure (90/60-120/80) 133/74 H -Extremity Use Left Arm -Pulse Rate (60-100) 82 Lying -Blood Pressure (90/60-120/80) 143/63 H -Extremity Use Left Arm -Pulse Rate (60-100) 72 Intake and Output for Last 24 Hours 01/16/20 01/17/20 01/18/20 23:59 23:59 23:59 Intake Total 740 / 740 50 / 50 Balance 740 / 740 50 / 50 Laboratory Results 01/17/20 16:14: Troponin I 0.078 H 01/17/20 19:04: Troponin I 0.092 H 01/18/20 05:50: WBC 6.2, RBC 4.59, Hgb 13.2, Hct 41.8, MCV 91.1, MCH 28.8, MCHC 31.6 L, RDW Std Deviation 42.5, RDW Coeff of Duc 13.0, Plt Count 217, MPV 9.1, Immature Gran % (Auto) 0.200, Neut % (Auto) 51.7, Lymph % (Auto) 36.2, [place] % (Auto) 8.2, Eos % (Auto) 3.2, Baso % (Auto) 0.5, Absolute Neuts (auto) 3.2, Absolute Lymphs (auto) 2.24, Nucleated RBC % 0 01/18/20 05:50: PT 25.2 H, INR 2.3 01/18/20 05:50: Sodium 144, Potassium 4.0, Chloride 111 H, Carbon Dioxide 29.0, Anion Gap 4 L, BUN 13, Creatinine 0.82, Estim Creat Clear Calc 49.66, Est GFR (MDRD) Af Amer 86, Est GFR (MDRD) Non-Af 71, BUN/Creatinine Ratio 15.9, Glucose 96, Calcium 8.7, Magnesium 2.0 01/18/20 05:50: TSH 0.31 L Current Medications Acetaminophen (Tylenol) 650 mg PO Q6H PRN PRN PRN Reason: Pain Score 1-10/Temp > 100.7 F Al Hydroxide/Mg Hydroxide (Mylanta Ii) 30 ml PO Q6H PRN PRN PRN Reason: Gastric Burning Albuterol Sulfate (Ventolin Aerosols) 2.5 mg INHALATION Q2H PRN PRN PRN Reason: SOB/Wheezing Atenolol (Tenormin (Beta Candace)) 25 mg PO DAILY [facility] Last Admin: 01/18/20 08:24 Dose: 25 mg Documented by: Atorvastatin Calcium (Lipitor) 20 mg PO QHS [facility] Last Admin: 01/17/20 20:56 Dose: 20 mg Documented by: Cyanocobalamin (Vitamin B12) 1,000 mcg PO DAILYCM [facility] Last Admin: 01/18/20 08:24 Dose: 1,000 mcg Documented by: Ferrous Sulfate (Ferrous Sulfate) 325 mg PO BID@1200,1700 [facility] Last Admin: 01/18/20 13:27 Dose: 325 mg Documented by: Sodium Chloride () 250 mls @ 15 mls/hr IV .[id number] PRN PRN Reason: Saline Flush Sodium Chloride () 250 mls @ 15 mls/hr IV .[id number] PRN PRN Reason: Additional IVPB Infusion Isosorbide Mononitrate (Imdur) 30 mg PO DAILY [facility] Last Admin: 01/18/20 08:24 Dose: 30 mg Documented by: Levothyroxine Sodium (Synthroid) 75 mcg PO DAILY@0600 [facility] Last Admin: 01/18/20 05:34 Dose: 75 mcg Documented by: Melatonin (Melatonin) 3 mg PO QHS PRN PRN PRN Reason: INSOMNIA Nitroglycerin (Nitrostat) 0.4 mg SUBLINGUAL Q5M PRN PRN Reason: CARDIAC/CHEST PAIN Potassium Chloride (K-Dur) 10 meq PO DAILY[facility] Last Admin: 01/18/20 08:24 Dose: 10 meq Documented by: Prochlorperazine Edisylate (Compazine Iv) 5 mg IV Q4H PRN PRN PRN Reason: Breakthrough Nausea/Vomiting Senna/Docusate Sodium (Senokot-S, Sendy-Colace) 2 tablet PO BID PRN PRN PRN Reason: Constipation Sodium Chloride () 10 - 40 ml IV UD PRN PRN Reason: SALINE FLUSH Last Admin: 01/17/20 20:58 Dose: 10 ml Documented by: Warfarin Sodium (Coumadin (Pbkc)) 1 mg PO SuTuThSa@1700 [facility] Warfarin Sodium (Jantoven) 3 mg PO DAILY@1700 [facility] Last Admin: 01/17/20 17:23 Dose: 3 mg Documented by: STROKE Vital Signs/Narrative: Vital Signs Pulse 01/18/20 13:05 74 Assessment/Plan This patient was seen in conjunction with Tulio Dan PA-C . I have independently interviewed and examined the patient and reviewed pertinent historical, laboratory, and other data. Please refer to Tulio Dan PA-C note for details of this patient's presentation, findings, and recommendations. I have reviewed Tulio Dan PA-C note and concur with documented findings. In brief, Patient is an 84-year-old lady presented with lightheadedness Physical Examination: GENERAL: cooperative HEENT: Atraumatic; EYES; Anicteric, Normal Conjunctiva NECK; supple, normal thyroid, RESPIRATORY: Diminished to auscultation CARDIOVASCULAR: Irregularly irregular GI: soft, normoactive bowel sounds, : No Renal angle tenderness; EXTREMITIES: No edema, no clubbing, MUSCULOSKELETAL: no muscle waisting NEURO: Awake; no lateralizing signs. SKIN: No Rash PSYCH; Flat affect Assessment: 1. Presyncopal episode 2. Paroxysmal A. fib 3. Conduction system disorder status post pacemaker placement 4. Dyslipidemia 5. Hypothyroidism 6. History of breast CA 7. Hypertension 8. DVT prophylaxis Recommendations: 1. I have discussed the results of my overview and impressions with the patient 2. Options for management were reviewed OBSV E&M: [id number] Subsequent observation care L3
--- NOTE | 2020-01-18 12:40 | CHAPLAIN ---
Type of Pastoral Visit _x__ Initial Visit ___ Follow-up Visit ___ On-call Visit ___ General Patient Visit ___ Spiritual Assessment ___ Family Conference ___ Bereavement ___ Rapid Response ___ Code Blue ___ Other (describe below) Pastoral Care Referral From _x__ Patient ___ Family ___ Nurse ___ Physician ___ Nuclear Equipment Operator ___ Restaurant Assistant ___ Other (describe below) Sacrament/Intervention _x__ Active listening ___ Anointing ___ Yarsanism ___ Bereavement ___ Communion ___ Celeste exploration ___ _x__ Life review _x__ Prayer ___ Reconciliation ___ Sacrament of Sick _x__ Supportive presence ___ Wedding ___ Other (describe below) Pastoral Comments
[2020-01-18] MEDS: Ferrous Sulfate 325 MG Tablet PO ×2 (13:27→15:58)
[2020-01-18 13:36] LABS: Thyroid Stim Hormone (TSH) 0.31 uIU/mL (0.358-3.74)
--- NOTE | 2020-01-18 14:59 | PCM.CONS.C ---
Problem List (1) Pre-syncope Status: Acute (2) Elevated troponin Status: Acute (3) Pacemaker Status: Chronic (4) History of non-ST elevation myocardial infarction (NSTEMI) Status: Chronic (5) Hyperlipidemia Status: Chronic (6) Benign essential hypertension Status: Chronic Reason for Consult Date of Consultation: 01/18/20 History of Present Illness: The patient is a 84 year old old white female with a past cardiovascular history which is included cardiac dysrhythmia status post permanent pacemaker placement, non-ST segment elevation NM, hyperlipidemia, and hypertension, who is referred for evaluation of presyncope and subsequent findings of abnormal troponin I levels. The patient states she was fine until yesterday. She is noted yesterday all of a sudden she felt like she hit a wall and if she was going to lose consciousness. She states she had to sit down and rest her head. She did not lose consciousness. She summoned a family member who evaluated her with home vital signs. They then summoned the EMS because she felt weak. She did not report any ongoing chest discomfort. There was no report of any acute respiratory related symptoms. She did not note any obvious palpitations or rapid rates. She states today she feels fine and back to her normal self. In the interim she was evaluated and placed in the PCU. During this time she has had troponin I levels which have trended up in the indeterminate range. Her ECG demonstrated an atrial paced rhythm with a left axis deviation and a right bundle branch block pattern and a possible left anterior fascicular block pattern. Her pacemaker was interrogated and suggested a history of paroxysmal atrial fibrillation with events lasting less than a minute. It appeared based upon the information available her last event reported on her PPM was on 11-25-2019 and her last ventricular high rate was reported on 01-07-2020. The patient has denied any episodes of orthopnea or PND. She does have an element of lower extremity peripheral pitting edema. She states she has not noted any palpitations or rapid rates. She has had no near syncope or syncope. The patient has undergone additional evaluation with a transthoracic echocardiogram. The results are as noted below. She has also been evaluated in the past with additional noninvasive and invasive studies including diagnostic cardiac catheterization. She has not been found to have angiographically significant appearing CAD. [] Past Medical History Allergies/Adverse Reactions: Allergies omeprazole Allergy (Severe, Verified 04/08/19 09:52) Swelling Tongue swelling, was able to take IV lasix levofloxacin [From Levaquin] Allergy (Verified 04/08/19 09:52) Angioedema lisinopril Allergy (Verified 04/08/19 09:52) Swelling Penicillins Allergy (Verified 04/08/19 09:52) Itching Sulfa (Sulfonamide Antibiotics) Allergy (Verified 04/08/19 09:52) Angioedema amlodipine Adverse Reaction (Severe, Verified 07/23/19 13:38) severe hypotension Home Medications: Ambulatory Orders Medication Instructions Recorded Atorvastatin Calcium [Lipitor] 20 mg PO QHS 08/20/13 Cyanocobalamin (Vitamin B-12) 1,000 mcg PO DAILY 11/02/18 [B-12] Potassium Chloride [Klor-Con 10] 10 meq PO DAILY 11/02/18 warfarin 3 mg tablet 3 mg PO DAILY 12/11/18 ferrous sulfate 325 mg (65 mg 325 mg PO BID tab 04/08/19 iron) tablet levothyroxine 75 mcg tablet 75 mcg PO DAILY 04/08/19 atenolol 25 mg tablet 25 mg PO DAILY #30 tab 08/20/19 isosorbide mononitrate 30 mg 30 mg PO DAILY #90 tab 10/29/19 tablet,extended release 24 hr Warfarin Sodium [Coumadin] 1 mg PO SUTUTHSA 01/17/20 Past Medical History (Chronic Problems): Chronic Problems (Last Reviewed 01/17/20 @ 13:[address] Nick Quiñonez MD) Elevated blood pressure reading in office with white coat syndrome, without diagnosis of hypertension (Chronic) Pacemaker (Chronic) Orthostatic hypotension (Chronic) History of syncope (Chronic) 11/02/2018 RBBB (Chronic) History of non-ST elevation myocardial infarction (NSTEMI) (Chronic 08/23/18) H/O cardiac catheterization (Chronic 08/25/18) Normal coronaries per cath 08/25/[address] Covington, [facility] History of TIA (transient ischemic attack) (Chronic) Benign essential hypertension (Chronic) Hyperlipidemia (Chronic) Hypothyroidism (Chronic) History of right mastectomy (Chronic) History of breast cancer (Chronic) History of vasculitis (Chronic) Surgical History: mastectomy, - - Pacemaker placement, cardiac catheterization, loop recorder implantation, right mastectomy; and plate in left arm. 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 Nick Quiñonez MD) Father Myocardial infarction Sister CAD (coronary artery disease) History Items: - - Patient does not know Paternal Family History: Family History (Last Reviewed 01/17/20 @ 13:[address] Nick Quiñonez MD) Father Myocardial infarction Sister CAD (coronary artery disease) History Items: - - Patient does not know Smoking Status: Former smoker Review of Systems - Review of Systems General: Denies: Fever, Night Sweats, Fatigue Cardiovascular: Reports: Near Syncope. Denies: Chest Discomfort, Shortness of Breath, Orthopnea, PND, Peripheral Edema, Palpitations, Lightheadedness, Dizziness, Syncope Respiratory: Denies: Cough, Sputum Production, Hemoptysis Gastrointestinal: Denies: Hematemesis, Hematochezia, Melena Genitourinary: Denies: Dysuria, Hematuria Skin: Denies: Rash Subjectve: Is an 84-year-old white female appears be resting comfortably at the moment in no acute distress. Objective: Vital Signs Temp Pulse Resp BP Pulse Ox 98.5 F 74 16 130/54 H 95 01/18/20 08:20 01/18/20 13:05 01/18/20 08:20 01/18/20 08:20 01/18/20 08:20 Oxygen Delivery Method Room Air Weight: 145 lb 11.609 oz Body Mass Index (BMI) 22.5 Finger Stick Blood Glucose 98 Orthostatic Vital Signs Start: 01/17/20 15:51 Freq: q24h Status: Active Protocol: Activity Type Activity Date Activity User E-Sign Co-Sign Detail Recorded Client Recorded Date Recorded By Document 01/18/20 03:00 MAB [id number] 01/18/20 03:59 MAB 01/18/20 03:00 Orthostatic Vitals Standing -Blood Pressure (90/60-120/80) 128/72 H -Extremity Use Left Arm -Pulse Rate (60-100) 89 Sitting -Blood Pressure (90/60-120/80) 133/74 H -Extremity Use Left Arm -Pulse Rate (60-100) 82 Lying -Blood Pressure (90/60-120/80) 143/63 H -Extremity Use Left Arm -Pulse Rate (60-100) 72 Intake and Output for Last 24 Hours 05/31/20 06/01/20 06/02/20 23:59 23:59 23:59 Intake Total 740 / 740 50 / 50 Balance 740 / 740 50 / 50 General: Awake, Alert, Oriented x 3, Cooperative, No Acute Distress HEENT: Atraumatic, Normocephalic, PERRL, EOMI, Sclera Non Icteric Oral: Moist Mucosa Neck: Supple, Good ROM, No JVD Lungs: Clear to auscultation Cardiovascular: Regular Rhythm, Normal S1, Normal S2 Vascular: Ar Carotid Artery Bruits Abdomen: Bowel Sounds Present, Soft, Non Tender Extremities: Mild RLE Edema, Mild LLE Edema Neurological: No Focal Motor or Sensory Deficit Psych/Mental Status: Appropriate 01/17/20 16:14: Troponin I 0.078 H 01/17/20 19:04: Troponin I 0.092 H 01/18/20 05:50: WBC 6.2, RBC 4.59, Hgb 13.2, Hct 41.8, MCV 91.1, MCH 28.8, MCHC 31.6 L, Plt Count 217, MPV 9.1, Immature Gran % (Auto) 0.200, Neut % (Auto) 51.7, Lymph % (Auto) 36.2, [place] % (Auto) 8.2, Eos % (Auto) 3.2, Baso % (Auto) 0.5, Absolute Neuts (auto) 3.2, Nucleated RBC % 0 01/18/20 05:50: PT 25.2 H, INR 2.3 01/18/20 05:50: Sodium 144, Potassium 4.0, Chloride 111 H, Carbon Dioxide 29.0, Anion Gap 4 L, BUN 13, Creatinine 0.82, Est GFR (MDRD) Af Amer 86, Est GFR (MDRD) Non-Af 71, BUN/Creatinine Ratio 15.9, Glucose 96, Calcium 8.7, Magnesium 2.0 Rhythm: Sinus rhythm/atrial paced rhythm EKG: As noted above ECHO: Interpretation Summary The study was technically difficult. Contrast injection was performed. Mild segmental systolic dysfunction (see wall motion). The estimated ejection fraction is 45 %. There is moderate mitral annular calcification. Extension of the mitral annular calcification onto the base of the posterior mitral valve leaflet. Mild focal mitral valve calcification of the anterior leaflet. Mild (1+) mitral valve insufficiency. Mild tricuspid valve insufficiency. Mild focal aortic valve calcification. Trivial pulmonic valve insufficiency. Right ventricular systolic pressure estimated to be 35 mmHg. Diastolic function is indeterminate. Cardiac Cath: 08-25-2018 CONCLUSIONS Normal coronary arteries Segmented LV systolic dysfunction- Mild RECOMMENDATIONS Management as per referring Tool Planner Add imdur 30mg po qd for HTN and 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 Manual sheath removal. CORONARY ANGIOGRAPHY DOMINANCE: Left Dominant LEFT HEART ASSESSMENT Left Ventricular Ejection Fraction: by LV Gram 50 % Apical Akinesis Depressed Left Ventricular systolic function LEFT MAIN: Angiographically normal LEFT ANTERIOR DECENDING ARTERY: Angiographically normal CIRCUMFLEX ARTERY: Angiographically normal RIGHT CORONARY ARTERY: Angiographically normal CXR: Preliminary evaluation: No acute cardiopulmonary disease process appreciated Assessment/Plan 1. Near syncope The patient reports a near syncopal event. The etiology is unclear at this time. It is not definitive that is related to any underlying cardiac dysrhythmias based upon her ongoing evaluation. Her troponin I levels are indeterminant. She has had abnormal troponin I levels in the past which apparently have correlated with no obvious underlying CAD based upon her previous cardiac catheterization. She has been reported as having episodes of paroxysmal atrial fibrillation although there is no definitive report of one occurring with her event. Thus it is unclear as to whether or not this is contributing to her troponin I levels. Her echocardiogram has been reviewed. She does have what appears to be left ventricular regional wall motion abnormalities with an element of diminished LV systolic function is similar to her overall LV systolic function noted during her previous cardiac catheterization. The etiology is unclear as past she has not had underlying CAD to explain such findings. There is a concern this could be related to her underlying intermittent electronic paced rhythm. At the moment she is continuing to be observed. Her rhythm is being monitored. It may not be unreasonable to consider a noncardiac evaluation for her near syncope as well. This may include a neurologic evaluation and additional noncardiac studies as deemed appropriate. 2. Indeterminate troponin I levels The patient does have indeterminate troponin I levels. In the past she has had abnormal troponin I levels which did not appear to demonstrate as of just over a year ago with any obvious underlying CAD. Again the etiology of these troponin I levels are unclear at this time. If there is no definitive cardiovascular correlation it may be reasonable to consider a noncardiac evaluation which could include a neurologic evaluation to explain her event and her troponin I levels. 3. Cardiac dysrhythmia status post permanent pacemaker placement The patient has had findings compatible with paroxysmal atrial fibrillation. Again it is not clear this was an acute finding to explain her event or her current troponin I levels. She has been on medical therapy. This has included beta-alissa therapy and anticoagulation therapy. Her pacemaker has been interrogated. It has been reported is functioning appropriately. 4. Non-ST segment elevation NM The patient has a history of non-ST segment elevation NM. She is undergone previous noninvasive and invasive studies as noted. She has not been found to have angiographically significant appearing CAD to explain these events. Again the etiology of her current indeterminate troponin I levels is unclear. Based upon her cardiac catheterization in 2019 it appears less likely it is related to the development and/or progression of angiographically significant appearing CAD to explain her current event and findings. Thus a noncardiac evaluation may be reasonable. 5. Hyperlipidemia She should continue risk factor evaluation care as deemed appropriate. 6. Hypertension Her blood pressure should be monitored and her medicines adjusted as needed. Comment: Thus, at the present time, would continue conservative cardiovascular medical therapy and consider noncardiac evaluation of the patient's symptoms and her objective findings prior to proceeding with additional cardiac diagnostic studies, etc. This note was generated using a voice recognition system and there may be incorrect words, spelling or punctuation that were not noted when reviewing the office note prior to saving.
[2020-01-18 16:36] LABS: T4 Free Direct 1.16 ng/dL (0.76-1.46)
[2020-01-18] MEDS: Atorvastatin Calcium 20 MG Tablet PO (22:31)
[2020-01-19] VITALS (7 sets, daily range): BP systolic 110–151; BP diastolic 65–92; PULSE 64–97; RESP 16–18; TEMP 36.6–37; O2SAT 93–95
[2020-01-19] MEDS: Levothyroxine 75 MCG Tablet PO (05:12)
[2020-01-19] MEDS: Cyanocobalamin 500 MCG Tablet 1000 MCG PO (07:33)
--- NOTE | 2020-01-19 09:36 | PCM.PN.CARD ---
Subjectve: Patient seen and examined this morning, and doing fairly well. The history I got from the patient is that it sounds as though she had sudden onset severe dizziness as if the room was spinning, so much so that she had to fall against the wall to keep her balance. Patient denies any previous diagnosis of vertigo in the past or previous symptoms. She has not had any chest pain, angina, shortness of breath or dyspnea on exertion prior to her during her initial event on this admission. Echocardiogram report reviewed. Pacemaker interrogation Objective: Vital Signs Temp Pulse Resp BP Pulse Ox 97.8 F 80 16 150/76 H 93 01/19/20 03:15 01/19/20 07:25 01/19/20 03:15 01/19/20 03:38 01/19/20 07:23 Oxygen Delivery Method Room Air Weight: 145 lb 8.081 oz Body Mass Index (BMI) 22.5 Finger Stick Blood Glucose 98 Orthostatic Vital Signs Start: 01/17/20 15:51 Freq: q24h Status: Active Protocol: Activity Type Activity Date Activity User E-Sign Co-Sign Detail Recorded Client Recorded Date Recorded By Document 01/19/20 03:38 AE [id number] 01/19/20 03:38 AE 01/19/20 03:38 Orthostatic Vitals Standing -Blood Pressure (90/60-120/80) 110/70 -Extremity Use Left Arm -Pulse Rate (60-100) 97 Sitting -Blood Pressure (90/60-120/80) 151/92 H -Extremity Use Left Arm -Pulse Rate (60-100) 78 Lying -Blood Pressure (90/60-120/80) 150/76 H -Extremity Use Left Arm -Pulse Rate (60-100) 76 Intake and Output for Last 24 Hours 01/17/20 01/18/20 01/19/20 23:59 23:59 23:59 Intake Total 740 / 740 50 / 50 100 / 100 Output Total 275 / 275 Balance 740 / 740 50 / -100 -175 / -175 General: Awake, Alert, Oriented x 3 HEENT: PERRL, EOMI, Sclera Non Icteric Neck: Supple, Good ROM, No Lymph Node Enlargement Lungs: Clear to auscultation Cardiovascular: Regular Rhythm, Normal S1, Normal S2, No Murmurs, No Rubs, No Gallops Vascular: No Carotid Bruits, Normal Femoral Pulses, Normal Radial Pulses, Normal Dorsalis Pedal Pulse, Normal Posterior Tibial Pulses Abdomen: Bowel Sounds Present, Soft, Non Tender, No HSM, No Organomegaly Extremities: No Cyanosis, No Clubbing, No edema Neurological: No Focal Motor or Sensory Deficit 01/19/20 05:50: PT 22.0 H, INR 2.0 Rhythm: EKG: ECHO: Stress Test: Cardiac Cath: PCI: CT Surgery: Holter monitor: EPS: PPM: CXR: Chest CT Scan: Medical Necessity - Tobacco Use Smoking Status: Former smoker Assessment/Plan 1. Abnormal troponins: The patient had no anginal symptoms, and has nonspecific troponin release. Would not pursue catheterization at this time. Previous catheterization demonstrated normal coronary arteries. 2. Dizziness: The patient is dizziness appears to be vertigo induced, as her pacemaker interrogation showed no overt abnormalities per Dr. Lira's note. I do not have her official pacemaker interrogation documented at this time however. She has had episodes in the past of nonsustained ventricular tachycardia and as well as episodes of tachycardia. I do not believe the patient requires diagnostic coronary angiogram at this time. I do not believe the patient requires a stress test. Her echocardiogram report on this admission is as below: Mild segmental systolic dysfunction (see wall motion). The estimated ejection fraction is 45 %. There is moderate mitral annular calcification. Extension of the mitral annular calcification onto the base of the posterior mitral valve leaflet. Mild focal mitral valve calcification of the anterior leaflet. Mild (1+) mitral valve insufficiency. Mild tricuspid valve insufficiency. Mild focal aortic valve calcification. Trivial pulmonic valve insufficiency. Right ventricular systolic pressure estimated to be 35 mmHg. Diastolic function is indeterminate. At this point I would recommend switching her Imdur to 30 mg in the evening, and continuing her atenolol. Her telemetry on this admission showed normal sinus rhythm with occasional paced atrial rhythm with normal ventricular response. Patient is mildly orthostatic by blood pressure checks today, and she may require complete discontinuation of her Imdur should this continue. I would have a low threshold to prescribe the patient Antivert should this occur again provided her blood pressure is not found to be orthostatic. 3. Patient may be discharged home and follow-up with Dr. Covington going forward. Thank you very much for the opportunity to participate in the cardiac care of your patient.
--- NOTE | 2020-01-19 10:04 | DCINST_ITS ---
- Discharge Diagnoses Current Active Problems: Current Active and Chronic Problems (Last Reviewed 01/17/20 @ 13:[address] Nick Quiñonez MD) Atrial fibrillation with RVR (Acute) Elevated troponin (Acute) Pre-syncope (Acute) Pre-syncope (Acute) You will use the following diet at home:: Cardiac Your food should be the consistency of: Regular Your liquids should be the consistency of: Regular/Thin Discharge Activity: Return to Normal Activity Additional Instructions: Take Imdur in the evening intead of in the AM. Continue ROSIE hose daily. Allergies/Adverse Reactions: Allergies omeprazole Allergy (Severe, Verified 04/08/19 09:52) Swelling Tongue swelling, was able to take IV lasix levofloxacin [From Levaquin] Allergy (Verified 04/08/19 09:52) Angioedema lisinopril Allergy (Verified 04/08/19 09:52) Swelling Penicillins Allergy (Verified 04/08/19 09:52) Itching Sulfa (Sulfonamide Antibiotics) Allergy (Verified 04/08/19 09:52) Angioedema amlodipine Adverse Reaction (Severe, Verified 07/23/19 13:38) severe hypotension Medications to take at Discharge Atorvastatin Calcium [Lipitor] 20 mg PO QHS 08/20/13 Cyanocobalamin (Vitamin B-12) [B-12] 1,000 mcg PO DAILY 11/02/18 Potassium Chloride [Klor-Con 10] 10 meq PO DAILY 11/02/18 warfarin 3 mg tablet 3 mg PO DAILY 12/11/18 ferrous sulfate 325 mg (65 mg iron) tablet 325 mg PO BID tab 04/08/19 levothyroxine 75 mcg tablet 75 mcg PO DAILY 04/08/19 atenolol 25 mg tablet 25 mg PO DAILY #30 tab 08/20/19 isosorbide mononitrate 30 mg tablet,extended release 24 hr 30 mg PO DAILY #90 tab 10/29/19 Warfarin Sodium [Coumadin] 1 mg PO SUTUTHSA 01/17/20 Acetaminophen [Tylenol Tablet] 650 mg PO Q6H PRN PRN tab 01/19/20 Primary Care Physician: Elmo Burdick DO [Primary Care Provider] - Please follow up with your Primary Care Physician in: 1-2 weeks Test Results: Test results from this visit will be discussed in further detail at your follow- up appointment, if applicable. Please Follow Up With: Earl Covington MD When: as directed Please Follow Up With: Jorge L Curtis MD When: 2 weeks Proposed Discharge Date: 01/19/20
--- NOTE | 2020-01-19 10:25 | PHA.DC.MR ---
Pharmacy Service has performed discharge medication reconciliation for this patient. The patient's discharge medication list was reviewed for discrepancies and discrepancies were resolved. Home Medications Atorvastatin Calcium [Lipitor] 20 mg PO QHS 08/20/13 Cyanocobalamin (Vitamin B-12) [B-12] 1,000 mcg PO DAILY 11/02/18 Potassium Chloride [Klor-Con 10] 10 meq PO DAILY 11/02/18 warfarin 3 mg tablet 3 mg PO DAILY 12/11/18 ferrous sulfate 325 mg (65 mg iron) tablet 325 mg PO BID tab 04/08/19 levothyroxine 75 mcg tablet 75 mcg PO DAILY 04/08/19 atenolol 25 mg tablet 25 mg PO DAILY #30 tab 08/20/19 isosorbide mononitrate 30 mg tablet,extended release 24 hr 30 mg PO DAILY #90 tab 10/29/19 Warfarin Sodium [Coumadin] 1 mg PO SUTUTHSA 01/17/20 Acetaminophen [Tylenol Tablet] 650 mg PO Q6H PRN PRN tab 01/19/20
[2020-01-19] MEDS: Atenolol 25 MG Tablet PO (10:26)
--- NOTE | 2020-01-19 11:16 | DS.PCM_ITS ---
<Tulio Dan - Last Filed: 01/19/20 11:16> Discharge Date and Diagnosis Date of Admission: 01/17/20 Date of Discharge: 01/19/20 - Primary Discharge Diagnosis Acute Problems: Active Problems (Last Reviewed 01/17/20 @ 13:[address] Nick Quiñonez MD) Near syncope 2/2 orthostatic hypotension A paced rhythm SSS, Afib Recent RVR - Secondary Discharge Diagnosis Chronic Problems: Chronic Problems (Last Reviewed 01/17/20 @ 13:[address] Nick Quiñonez MD) Elevated blood pressure reading in office with white coat syndrome, without diagnosis of hypertension (Chronic) Pacemaker (Chronic) Orthostatic hypotension (Chronic) History of syncope (Chronic) 11/02/2018 RBBB (Chronic) History of non-ST elevation myocardial infarction (NSTEMI) (Chronic 08/23/18) H/O cardiac catheterization (Chronic 08/25/18) Normal coronaries per cath 08/25/[address] Covington [facility] History of TIA (transient ischemic attack) (Chronic) Benign essential hypertension (Chronic) Hyperlipidemia (Chronic) Hypothyroidism (Chronic) History of right mastectomy (Chronic) History of breast cancer (Chronic) History of vasculitis (Chronic) Hospital Course and Treatment Imaging Results: 2D Echo: Interpretation Summary The study was technically difficult. Contrast injection was performed. Mild segmental systolic dysfunction (see wall motion). The estimated ejection fraction is 45 %. There is moderate mitral annular calcification. Extension of the mitral annular calcification onto the base of the posterior mitral valve leaflet. Mild focal mitral valve calcification of the anterior leaflet. Mild (1+) mitral valve insufficiency. Mild tricuspid valve insufficiency. Mild focal aortic valve calcification. Trivial pulmonic valve insufficiency. Right ventricular systolic pressure estimated to be 35 mmHg. Diastolic function is indeterminate. RAD/Chest 1 View (Portable) IMPRESSION: Hyperinflation. The lungs are clear. Operations: None Procedures: 2-D Echocardiogram Summary of Care Provided: Hospital Course: The patient is a 84 year old F wtih pmhx of Afib and SSS with pacer in place, who presented to the ER with c/o sudden episode of lightheadedness. This occurred while walking, she suddenly felt like she had been struck and that she would pass out. She was brought to the ER and pacer interogated. It showed an episode of afib rvr in november however nothing that explained the symptoms that day. She was admitted to the PCU on tele. No events on tele. Cardiology was consulted. Troponin was indeterminate. TSH low but t4 normal. UA was negative an no sign of infection. She underwent an echo that showed EF 45%, segmental dysfunction, RVSP 35 mmHg. Cardiology felt that further cardiac workup was not warranted as she had a heart cath in 2018 with no CAD. She had significant drop in Systolic BP indicating orthostatic hypotension. Cardiology recommended her taking her imdur at night, and we recommended ROSIE hose daily for LE compression. She was referred to neurology as an outpatient in 2 weeks. She will need follow up with cardiology as directed, and with her PCP in 1-2 weeks. She was discharged home in stable condition. This patient was seen by Tulio Dan PA-C under the supervision of Dr. Quiñonez[] - Physical Exam Vitals/I&O's: Vital Signs Temp Pulse Resp BP Pulse Ox 98.6 F 72 18 134/65 H 95 01/19/20 10:01/19/20 10:06 01/19/20 10:06 01/19/20 10:06 01/19/20 10:06 Oxygen Delivery Method Room Air Weight: 145 lb 8.081 oz Body Mass Index (BMI) 22.5 Finger Stick Blood Glucose 98 Orthostatic Vital Signs Start: 01/17/20 15:51 Freq: q24h Status: Active Protocol: Activity Type Activity Date Activity User E-Sign Co-Sign Detail Recorded Client Recorded Date Recorded By Document 01/19/20 03:38 AE [id number] 01/19/20 03:38 AE 01/19/20 03:38 Orthostatic Vitals Standing -Blood Pressure (90/60-120/80) 110/70 -Extremity Use Left Arm -Pulse Rate (60-100) 97 Sitting -Blood Pressure (90/60-120/80) 151/92 H -Extremity Use Left Arm -Pulse Rate (60-100) 78 Lying -Blood Pressure (90/60-120/80) 150/76 H -Extremity Use Left Arm -Pulse Rate (60-100) 76 Intake and Output for Last 24 Hours 01/17/20 01/18/20 01/19/20 23:59 23:59 23:59 Intake Total 740 / 740 50 / 50 100 / 100 Output Total 275 / 275 Balance 740 / 740 50 / -100 -175 / -175 General: Alert, Oriented x3, Cooperative HEENT: Atraumatic, PERRLA, EOMI, Normocephalic Neck: Supple, No JVD, Negative Carotid Bruits Lungs: Clear to auscultation, Normal air movement Cardiovascular: Regular rate, No murmurs Abdomen: Bowel Sounds Present, Soft, Non Tender Extremities: No edema, Capillary Refill Less than 3 Seconds Skin: No rashes, No breakdown Musculoskeletal: No Tenderness to Palpation of Joints or Extremities Neurological: Cranial nerves II-XII grossly intact Psych/Mental Status: Normal Affect, Appropriate Laboratory Results 01/18/20 05:50: TSH 0.31 L 01/18/20 05:50: Free T4 1.16 01/19/20 05:50: PT 22.0 H, INR 2.0 Current Medications Acetaminophen (Tylenol) 650 mg PO Q6H PRN PRN PRN Reason: Pain Score 1-10/Temp > 100.7 F Al Hydroxide/Mg Hydroxide (Mylanta Ii) 30 ml PO Q6H PRN PRN PRN Reason: Gastric Burning Albuterol Sulfate (Ventolin Aerosols) 2.5 mg INHALATION Q2H PRN PRN PRN Reason: SOB/Wheezing Atenolol (Tenormin (Beta Candace)) 25 mg PO DAILY [facility] Last Admin: 01/19/20 10:26 Dose: 25 mg Documented by: Atorvastatin Calcium (Lipitor) 20 mg PO QHS [facility] Last Admin: 01/18/20 22:31 Dose: 20 mg Documented by: Cyanocobalamin (Vitamin B[facility]) [facility] Last Admin: 01/19/20 07:33 Dose: 1,000 mcg Documented by: Ferrous Sulfate (Ferrous Sulfate) 325 mg PO BID@1200,1700 [facility] Last Admin: 01/18/20 15:58 Dose: 325 mg Documented by: Sodium Chloride () 250 mls @ 15 mls/hr IV .[id number] PRN PRN Reason: Saline Flush Sodium Chloride () 250 mls @ 15 mls/hr IV .[id number] PRN PRN Reason: Additional IVPB Infusion Isosorbide Mononitrate (Imdur) 30 mg PO QHS [facility] Levothyroxine Sodium (Synthroid) 75 mcg PO DAILY@0600 [facility] Last Admin: 01/19/20 05:12 Dose: 75 mcg Documented by: Melatonin (Melatonin) 3 mg PO QHS PRN PRN PRN Reason: INSOMNIA Nitroglycerin (Nitrostat) 0.4 mg SUBLINGUAL Q5M PRN PRN Reason: CARDIAC/CHEST PAIN Potassium Chloride (K-Dur) 10 meq PO DAILYCM [facility] Last Admin: 01/19/20 07:33 Dose: 10 meq Documented by: Prochlorperazine Edisylate (Compazine Iv) 5 mg IV Q4H PRN PRN PRN Reason: Breakthrough Nausea/Vomiting Senna/Docusate Sodium (Senokot-S, Sendy-Colace) 2 tablet PO BID PRN PRN PRN Reason: Constipation Sodium Chloride () 10 - 40 ml IV UD PRN PRN Reason: SALINE FLUSH Last Admin: 01/17/20 20:58 Dose: 10 ml Documented by: Warfarin Sodium (Coumadin (Pbkc)) 1 mg PO SuTuThSa@1700 [facility] Last Admin: 01/18/20 15:58 Dose: 1 mg Documented by: Warfarin Sodium (Jantoven) 3 mg PO DAILY@1700 [facility] Last Admin: 01/18/20 15:58 Dose: 3 mg Documented by: Discharge Activity: Return to Normal Activity Home Medications: Medications to take at Discharge Atorvastatin Calcium [Lipitor] 20 mg PO QHS 08/20/13 Cyanocobalamin (Vitamin B-12) [B-12] 1,000 mcg PO DAILY 11/02/18 Potassium Chloride [Klor-Con 10] 10 meq PO DAILY 11/02/18 warfarin 3 mg tablet 3 mg PO DAILY 12/11/18 ferrous sulfate 325 mg (65 mg iron) tablet 325 mg PO BID tab 04/08/19 levothyroxine 75 mcg tablet 75 mcg PO DAILY 04/08/19 atenolol 25 mg tablet 25 mg PO DAILY #30 tab 08/20/19 isosorbide mononitrate 30 mg tablet,extended release 24 hr 30 mg PO DAILY #90 tab 10/29/19 Warfarin Sodium [Coumadin] 1 mg PO SUTUTHSA 01/17/20 Acetaminophen [Tylenol Tablet] 650 mg PO Q6H PRN PRN tab 01/19/20 Primary Care Physician: Elmo Burdick DO [Primary Care Provider] - Please follow up with your Primary Care Physician in: 1-2 weeks Please Follow Up With: Earl Covington MD When: as directed Please Follow Up With: Jorge L Curtis MD When: 2 weeks Disposition: Home Minutes spent on discharge:: 35 Patient Condition:: Stable Medical Necessity - Tobacco Use Smoking Status: Former smoker Meaningful Use Info Meaningful Use Diagnoses (Choose all that apply): None applicable <Nick Quiñonez - Last Filed: 01/19/20 11:50> Discharge Date and Diagnosis - Secondary Discharge Diagnosis Chronic Problems: Chronic Problems (Last Reviewed 01/17/20 @ 13:[address] Nick Quiñonez MD) Elevated blood pressure reading in office with white coat syndrome, without diagnosis of hypertension (Chronic) Pacemaker (Chronic) Orthostatic hypotension (Chronic) History of syncope (Chronic) 11/02/2018 RBBB (Chronic) History of non-ST elevation myocardial infarction (NSTEMI) (Chronic 08/23/18) H/O cardiac catheterization (Chronic 08/25/18) Normal coronaries per cath 08/25/[address] C[place], [facility] History of TIA (transient ischemic attack) (Chronic) Benign essential hypertension (Chronic) Hyperlipidemia (Chronic) Hypothyroidism (Chronic) History of right mastectomy (Chronic) History of breast cancer (Chronic) History of vasculitis (Chronic) Hospital Course and Treatment Summary of Care Provided: This patient was seen in conjunction with Tulio Dan PA-C . I have independently interviewed and examined the patient and reviewed pertinent historical, laboratory, and other data. Please refer to Tulio Dan PA-C note for details of this patient's presentation, findings, and recommendations. I have reviewed Tulio Dan PA-C note and concur with documented findings. In brief, Patient is an 84-year-old lady presented with lightheadedness Assessment: 1. Presyncopal episode 2. Paroxysmal A. fib 3. Conduction system disorder status post pacemaker placement 4. Dyslipidemia 5. Hypothyroidism 6. History of breast CA 7. Hypertension 8. DVT prophylaxis Hospital course: As documented above - Physical Exam Vitals/I&O's: Vital Signs Temp Pulse Resp BP Pulse Ox 98.6 F 72 18 134/65 H 95 01/19/20 10:06 01/19/20 10:06 01/19/20 10:06 01/19/20 10:06 01/19/20 10:06 Oxygen Delivery Method Room Air Weight: 66 kg Body Mass Index (BMI) 22.5 Finger Stick Blood Glucose 98 Orthostatic Vital Signs Start: 01/17/20 15:51 Freq: q24h Status: Active Protocol: Activity Type Activity Date Activity User E-Sign Co-Sign Detail Recorded Client Recorded Date Recorded By Document 01/19/20 03:38 AE [id number] 01/19/20 03:38 AE 01/19/20 03:38 Orthostatic Vitals Standing -Blood Pressure (90/60-120/80) 110/70 -Extremity Use Left Arm -Pulse Rate (60-100) 97 Sitting -Blood Pressure (90/60-120/80) 151/92 H -Extremity Use Left Arm -Pulse Rate (60-100) 78 Lying -Blood Pressure (90/60-120/80) 150/76 H -Extremity Use Left Arm -Pulse Rate (60-100) 76 Intake and Output for Last 24 Hours 01/17/20 01/18/20 01/19/20 23:59 23:59 23:59 Intake Total 740 / 740 50 / 50 100 / 100 Output Total 275 / 275 Balance 740 / 740 50 / -100 -175 / -175 Laboratory Results 01/18/20 05:50: TSH 0.31 L 01/18/20 05:50: Free T4 1.16 01/19/20 05:50: PT 22.0 H, INR 2.0 OBSV E&M: [id number] Observation care discharge
== END 2020-01-19 10:06 | disposition home or self-care (01) ==
LOC: ED 12:28 → PCU 13:10
PROVIDERS: Physician Assistant; Admitting Provider Internal Medicine; Emergency Provider Emergency Medicine; PCP Student in an Organized Health Care Education/Training Program; Visit Provider Internal Medicine
DX: I95.1 Orthostatic hypotension (principal); I48.0 Paroxysmal atrial fibrillation; I10 Essential (primary) hypertension; E78.5 Hyperlipidemia, unspecified; I08.3 Combined rheumatic disorders of mitral, aortic and tricuspid valves; I25.2 Old myocardial infarction; E03.9 Hypothyroidism, unspecified; Z79.899 Other long term (current) drug therapy; Z79.01 Long term (current) use of anticoagulants; Z87.891 Personal history of nicotine dependence; Z95.0 Presence of cardiac pacemaker; Z85.3 Personal history of malignant neoplasm of breast
CPT/HCPCS: 36415; 71045; 80048; 81001; 83735; 84439; 84443; 84484; 85025; 85610; 93005; 93306; 96360; 96361; 99218; 99251; 99285; J7030; Q9957; A4216; C8929; G0378; G0463

== ENCOUNTER → 2020-05-23 09:40 | Outpatient (CLI) | payer MEDICARE, OTHER, SELFPAY ==
[2020-01-17 15:31] VITALS: BMI 22.5
== END ==
PROVIDERS: PCP Student in an Organized Health Care Education/Training Program; Referring Provider Family Medicine; Visit Provider Nurse Practitioner Family
DX: Z20.828 Contact with and (suspected) exposure to other viral communicable diseases (principal)
CPT/HCPCS: 87635; C9803; U0003

== ENCOUNTER 2020-05-28 15:47 | Emergency (ER) | payer MEDICARE, OTHER, SELFPAY ==
[2020-05-24 09:57] VITALS: BMI 22.1
[2020-05-28 15:49] VITALS: BP 163/117; PULSE 88; RESP 16; TEMP 36.2; O2SAT 93; BMI 21.9
[2020-05-28 16:20] VITALS: BP 170/97; PULSE 80; RESP 20; O2SAT 93
--- NOTE | 2020-05-28 16:21 | CT_ITS ---
STUDY: CT BRAIN WITHOUT CONTRAST REASON FOR EXAM: Female, 84 years old. VERTIGO, RECENT BP MED CHANGE, HX-PR, BREAST CA,ELEV BP 194/104 RADIATION DOSAGE (If Supplied By Facility): CTDIvol = ( 44.99 ) mGy, DLP = ( 779.24 ) mGycm TECHNIQUE: Transaxial CT imaging of the brain was performed without administration of intravenous contrast material. Individualized dose optimization techniques were used for this CT. COMPARISON: 08/14/2019. FINDINGS: Normal soft tissue structures. Normal calvarium. There is mild cerebral atrophy with widening of the extra-axial spaces and ventricular dilatation. There are areas of decreased attenuation within the white matter tracts of the supratentorial brain, consistent with microvascular disease changes. Normal basal ganglia and thalami. Normal brainstem. Normal cerebellum. There is no intracranial hemorrhage. There are no findings of an acute ischemic infarction. Chronic right temporal infarct. 1.5 cm left maxillary sinus retention cyst. Mild mucosal thickening. Visualized sinuses are otherwise unremarkable. CT/Brain/Head without Contrast IMPRESSION: 1. No acute findings. 2. Chronic right temporal infarct. 3. Microvascular ischemic changes. Atrophy. Electronically Signed: Melanie Cabrera MD at 18:09 EDT Tel , Service support ,
--- NOTE | 2020-05-28 16:22 | ED.DCSUM_ITS ---
History of Present Illness Chief Complaint: Hypertension Informant: Patient, Family Onset: Days Narrative: Patient was seen by cardiology office on May 24. Due to a low ejection fraction on echocardiogram she was switched from 50 mg of atenolol a day to Coreg 6.25 mg twice daily. They have been checking her blood pressures frequently since this medication change. Blood pressures have fluctuated drastically and this afternoon her blood pressure was reading 194/104. When asked the how she feels the patient states not good. She states she felt very unsteady on her feet this afternoon. She felt as if she had vertigo. She denies headache. - Past Medical History (1) Atrial fibrillation Status: Chronic (2) Benign essential hypertension Status: Chronic (3) History of TIA (transient ischemic attack) Status: Chronic (4) History of breast cancer Status: Chronic (5) History of non-ST elevation myocardial infarction (NSTEMI) Status: Chronic (6) History of vasculitis Status: Chronic (7) Hyperlipidemia Status: Chronic (8) Hypothyroidism Status: Chronic (9) Pacemaker Status: Chronic Past Medical History - Allergies and Home Meds Allergies/Adverse Reactions: Allergies omeprazole Allergy (Severe, Verified 05/28/20 15:49) Swelling Tongue swelling, was able to take IV lasix levofloxacin [From Levaquin] Allergy (Verified 05/28/20 15:49) Angioedema lisinopril Allergy (Verified 05/28/20 15:49) Swelling Penicillins Allergy (Verified 05/28/20 15:49) Itching Sulfa (Sulfonamide Antibiotics) Allergy (Verified 05/28/20 15:49) Angioedema amlodipine Adverse Reaction (Severe, Verified 05/28/20 15:49) severe hypotension Primary Care Physician: Elmo Burdick DO [Primary Care Provider] - Prior records reviewed: Yes Surgical History: mastectomy, - - Pacemaker placement, cardiac catheterization, loop recorder implantation, right mastectomy; and plate in left arm. Smoking Status: Former smoker - Family History Maternal Family History: Family History (Last Reviewed 05/24/20 @ 10:13 by Reina PAZ, PA) Father Myocardial infarction Sister CAD (coronary artery disease) Family History: Reports: - - Patient does not know Paternal Family History: Family History (Last Reviewed 05/24/20 @ 10:13 by Reina PAZ, PA) Father Myocardial infarction Sister CAD (coronary artery disease) Family History: Reports: - - Patient does not know Review of Systems General: Denies: Chills, Fever Eyes: Denies: Visual changes - bilaterally ENT: Denies: Bilateral ear pain Cardiovascular: Denies: Chest pain Respiratory: Denies: Dyspnea, Cough Gastrointestinal: Denies: Abdominal pain Musculoskeletal: Denies: Extremity Pain Skin: Denies: Rash Neurological: Denies: Headache Hematologic: Denies: Easy bruising, Easy bleeding Allergy: Denies: Uticaria Physical Exam Vital Signs/Narrative: Vital Signs Temp Pulse Resp BP Pulse Ox 05/28/20 15:49 97.1 F L 88 16 163/117 H 93 Inital Vital Signs reviewed: Yes General: Well nourished, Well developed Head: Normocephalic ENT: Moist mucous membranes Neck: Supple Cardiovascular: Regular rate, Regular rhythm Respiratory: No distress, CTA bilaterally Abdomen: Soft, Nontender Extremities: Nontender Skin: Normal color Neurological: Alert, Oriented x3, Normal Strength, Normal Sensation Psychological: Normal affect Diagnostic/Tx/Re-eval Impressions Brain CT 05/28/20 16:21 IMPRESSION: 1. No acute findings. 2. Chronic right temporal infarct. 3. Microvascular ischemic changes. Atrophy. Electronically Signed: Melanie Cabrera MD at 18:09 EDT Tel , Service support , 05/28/20 16:21 Brain/Head without Contrast [CT] Stat Laboratory Results 05/28/20 05/28/20 05/28/20 16:30 16:30 16:30 WBC 5.2 RBC 4.22 Hgb 12.4 Hct 39.0 MCV 92.4 MCH 29.4 MCHC 31.8 L RDW Std Deviation 43.2 RDW Coeff of Duc 12.8 Plt Count 217 MPV 9.1 Immature Gran % (Auto) 0.200 Neut % (Auto) 45.0 L Lymph % (Auto) 40.8 [place] % (Auto) 10.3 H Eos % (Auto) 3.3 Baso % (Auto) 0.4 Absolute Neuts (auto) 2.3 Absolute Lymphs (auto) 2.10 Nucleated RBC % 0 PT 28.4 H INR 2.7 Sodium 144 Potassium 3.9 Chloride 110 H Carbon Dioxide 31.0 Anion Gap 3 L BUN 13 Creatinine 0.74 Estim Creat Clear Calc 40.72 Est GFR (MDRD) Af Amer 97 Est GFR (MDRD) Non-Af 80 BUN/Creatinine Ratio 17.7 Glucose 92 Calcium 9.1 Urine Color Urine Clarity Urine pH Ur Specific [place] Urine Protein Urine Glucose (UA) Urine Ketones Urine Occult Blood Urine Nitrite Urine Bilirubin Urine Urobilinogen Ur Leukocyte Esterase Urine RBC Urine WBC Ur Squamous Epith Cells Urine Bacteria Urine Mucus 05/28/20 17:20 WBC RBC Hgb Hct MCV MCH MCHC RDW Std Deviation RDW Coeff of Duc Plt Count MPV Immature Gran % (Auto) Neut % (Auto) Lymph % (Auto) [place] % (Auto) Eos % (Auto) Baso % (Auto) Absolute Neuts (auto) Absolute Lymphs (auto) Nucleated RBC % PT INR Sodium Potassium Chloride Carbon Dioxide Anion Gap BUN Creatinine Estim Creat Clear Calc Est GFR (MDRD) Af Amer Est GFR (MDRD) Non-Af BUN/Creatinine Ratio Glucose Calcium Urine Color Straw Urine Clarity Clear Urine pH 7.0 Ur Specific [place] 1.010 Urine Protein Negative Urine Glucose (UA) Normal Urine Ketones Negative Urine Occult Blood Negative Urine Nitrite Negative Urine Bilirubin Negative Urine Urobilinogen Normal Ur Leukocyte Esterase Negative Urine RBC 0 SEEN Urine WBC 0 SEEN Ur Squamous Epith Cells 0 SEEN Urine Bacteria 0 SEEN Urine Mucus 0 SEEN - EKG Initial EKG Interpretation: Sinus Rhythm - Sinus 85 with occasional PVCs. No acute ischemia. - Medical Decision Making Patient was observed on secured entrance monitor here. Blood pressure is currently 171/97. She is due for her evening meds and will take her Coreg as soon as she gets home. Her blood pressure has been fluctuating quite significantly, anywhere from 115 systolic up to 197. I encouraged him to continue to monitor her symptoms and call her meat and seafood clerk tomorrow. I believe these fluctuations are secondary to switching from atenolol to Coreg and her body regulating this. ED Disposition - Plan for ED Patient: Disposition: Home or Assisted Living Diagnosis: Hypertension Instructions: ED Hypertension Established Referrals: Abhijeet Mayberry MD [STAFF PHYSICIAN] -
--- NOTE | 2020-05-28 16:22 | EKG12_ITS ---
Test Reason : HYPOTENSION Blood Pressure : / mmHG Vent. Rate : 085 BPM Atrial Rate : 085 BPM P-R Int : 170 ms QRS Dur : 122 ms QT Int : 388 ms P-R-T Axes : 079 -68 023 degrees QTc Int : 461 ms Sinus rhythm with occasional and consecutive Premature ventricular complexes Left axis deviation Right bundle branch block Abnormal ECG Confirmed by DONNY CRAIG, KLEVER ([id number]), editor continuity and script CHYNA MONTE ([id number]) on 05/30/2020 12:51:15 PM Referred By: SALLIE Confirmed By:KLEVER HINES MD
[2020-05-28 16:49] LABS: Absolute Neutrophil Count 2.3 X10^3/uL (2.0-7.7); Basophil# 0.02 X10^3/uL; Basophil% 0.4 % (0-1); Eosinophil# 0.17 X10^3/uL; Eosinophils% 3.3 % (0-5); Hemoglobin 12.4 g/dL (12.0-15.0); Lymphocyte % 40.8 % (19-41); Mean Corp Hgb Conc 31.8 g/dL (32-36); Mean Corpuscular Hgb 29.4 pg (27.0-32.0); Mean Corpuscular Volume 92.4 fL (81-99); Mean Platelet Vol. 9.1 fl (6.2-12.0); Monocyte# 0.53 X10^3/uL; Monocyte% 10.3 % (0-10); NRBC Flagged by Analyzer 0 % (0-5); Neutrophil # 2.32 X10^3/uL (2.7-7.7); Platelet Count 217 K/mm3 (150-450); RBC Distribution Width CV 12.8 % (11.6-14.6); RBC Distribution Width SD 43.2 fl (35.1-43.9); Red Blood Count 4.22 M/mm3 (4.2-5.4); White Blood Count 5.2 K/mm3 (4.4-11.0)
[2020-05-28 16:54] LABS: International Normalized Ratio 2.7; Prothrombin Time (Protime)PT. 28.4 SECONDS (11.7-14.9)
[2020-05-28 17:01] LABS: Anion Gap 3 (5-15); BUN 13 mg/dL (7-18); BUN/Creat Ratio 17.7 RATIO (10-20); Calcium,Total 9.1 mg/dL (8.5-10.1); Chloride 110 mmol/L (98-107); Creatinine, Serum 0.74 mg/dL (0.55-1.02); EST Glomerular Filtration Rate 80 mL/min (>60); Est Glom Filt Rate - Afr Amer 97 mL/min (>60); Estimated Creatinine Clearance 40.72 ml/min; Glucose 92 mg/dL (74-106); Potassium 3.9 mmol/L (3.5-5.1); Sodium Level 144 mmol/L (136-145)
[2020-05-28 17:27] LABS: Bacteria 0 SEEN /hpf (None Seen); Mucous, Urine 0 SEEN /hpf (<or=2+); Red Blood Cells-Urine 0 SEEN /hpf (0-5); Squamous Epithelial Cells - UA 0 SEEN /hpf (5-10); White Blood Cells 0 SEEN /hpf (0-5)
[2020-05-28 17:31] LABS: Color, Urine Straw (Yellow); Glucose, Dipstick Normal (Normal); Ketone-Dipstick Negative (Negative); Leukocyte Esterase-Dipstick Negative /ul (Negative); Nitrite-Dipstick Negative (Negative); Occult Blood-Urine Negative /ul (Negative); Protein-Dipstick Negative (Negative); Urine Bilirubin Dipstick Negative (Negative); Urine Clarity Clear (Clear); Urine Urobilinogen Normal (Normal)
[2020-05-28 18:33] VITALS: BP 171/97
== END 2020-05-28 18:42 | disposition home or self-care (01) ==
PROVIDERS: Emergency Provider Emergency Medicine; PCP Student in an Organized Health Care Education/Training Program
DX: I10 Essential (primary) hypertension (principal); I48.91 Unspecified atrial fibrillation; I25.2 Old myocardial infarction; E03.9 Hypothyroidism, unspecified; E78.5 Hyperlipidemia, unspecified; Z95.0 Presence of cardiac pacemaker; Z79.01 Long term (current) use of anticoagulants; Z87.891 Personal history of nicotine dependence; Z86.73 Personal history of transient ischemic attack (TIA), and cerebral infarction without residual deficits
CPT/HCPCS: 70450; 80048; 81001; 85025; 85610; 93005; 99283; A4216

== ENCOUNTER 2020-06-16 09:18 | Inpatient (IN) | payer MEDICARE, OTHER, SELFPAY ==
[2020-06-16] VITALS (15 sets, daily range): BP systolic 106–155; BP diastolic 42–82; PULSE 56–89; RESP 14–23; TEMP 36.4–36.8; O2SAT 92–97; BMI 23.7; BMI 22.0; BMI 22.1
--- NOTE | 2020-06-16 09:33 | EKG12_ITS ---
Test Reason : Blood Pressure : / mmHG Vent. Rate : 083 BPM Atrial Rate : 083 BPM P-R Int : 198 ms QRS Dur : 134 ms QT Int : 398 ms P-R-T Axes : 088 -71 038 degrees QTc Int : 467 ms Atrial-paced rhythm with frequent Premature ventricular complexes Right bundle branch block Left anterior fascicular block Bifascicular block Abnormal ECG Confirmed by YOLANDA CRAIG, ZEHRA ([id number]), image editor ZABRINA ALEXANDER ([id number]) on 06/20/2020 11:11:07 AM Referred By: DIPAK Confirmed By:ZEHRA GUERRERO MD
--- NOTE | 2020-06-16 09:33 | CT_ITS ---
STUDY: CT BRAIN WITHOUT CONTRAST REASON FOR EXAM: Female, 84 years old. Stroke RADIATION DOSAGE (If Supplied By Facility): CTDIvol = ( 44.99 ) mGy, DLP = ( 779.24 ) mGycm TECHNIQUE: Transaxial CT imaging of the brain was performed without administration of intravenous contrast material. Individualized dose optimization techniques were used for this CT. COMPARISON: Comparison is made with prior examination dated 05/28/2020. FINDINGS: Normal soft tissue structures. Normal calvarium. There is mild cerebral atrophy with widening of the extra-axial spaces and ventricular dilatation. Stable encephalomalacia involving the right temporal parietal occipital lobe in keeping with a prior infarction. No new abnormality is seen. Stable small old lacunar infarct in the left basal ganglia. Normal brainstem. Normal cerebellum. There is no intracranial hemorrhage. There are no findings of an acute ischemic infarction. There is a 1 cm x 1.4 cm mucosal polyp or retention cyst along the inferior lateral wall of the left maxillary sinus. CT/Brain/Head without Contrast IMPRESSION: Chronic involutional changes of the brain. Stable encephalomalacia in the right temporal parietal occipital lobes. N.B. : The above information has been verbally conveyed by Jj Good to Andersnorman Ann on 06/16/2020 09:50:14 (ET). Electronically Signed: Jj Good, at 9:51 EDT , Service support ,
--- NOTE | 2020-06-16 09:35 | ED.DCSUM_ITS ---
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 Onset was 0830. Patient has no complaint of headache. She denies visual symptoms. She denies trouble with speech or swallowing. She states she was unable to use her right side. She states she is now able to. She is not on an anticoagulant. Prior similar symptoms: No Recent Illness/Hospitalization: No - Past Medical History (1) Atrial fibrillation with RVR Status: Inactive (2) Benign essential hypertension Status: Chronic (3) History of TIA (transient ischemic attack) Status: Chronic (4) History of breast cancer Status: Chronic (5) History of non-ST elevation myocardial infarction (NSTEMI) Status: Chronic (6) History of right mastectomy Status: Chronic (7) Hyperlipidemia Status: Chronic (8) Hypothyroidism Status: Chronic (9) Orthostatic hypotension Status: Chronic (10) Pacemaker Status: Chronic Past Medical History - Allergies and Home Meds Allergies/Adverse Reactions: Allergies omeprazole Allergy (Severe, Verified 06/16/20 09:59) Swelling Tongue swelling, was able to take IV lasix levofloxacin [From Levaquin] Allergy (Verified 06/16/20 09:59) Angioedema lisinopril Allergy (Verified 06/16/20 09:59) Swelling Penicillins Allergy (Verified 06/16/20 09:59) Itching Sulfa (Sulfonamide Antibiotics) Allergy (Verified 06/16/20 09:59) Angioedema amlodipine Adverse Reaction (Severe, Verified 06/16/20 09:59) severe hypotension Prior records reviewed: Yes Surgical History: mastectomy, - - Pacemaker placement, cardiac catheterization, loop recorder implantation, right mastectomy; and plate in left arm. Lives: With Family Smoking Status: Never smoker Alcohol: None Drugs: None - Family History Maternal Family History: Family History (Last Reviewed 06/16/20 @ 11:[address] Dheeraj Small, DO) Father Myocardial infarction Sister CAD (coronary artery disease) Family History: Reports: - - Patient does not know Paternal Family History: Family History (Last Reviewed 06/16/20 @ 11:[address] Dheeraj Small DO) Father Myocardial infarction Sister CAD (coronary artery disease) Family History: Reports: - - Patient does not know Review of Systems General: Denies: Chills, Fever, Malaise Eyes: Denies: Visual changes - bilaterally, Blurred Vision - bilaterally, Diplopia ENT: Denies: Rhinorrhea, Sore throat Cardiovascular: Denies: Chest pain, Palpitations Respiratory: Denies: Dyspnea, Cough, Dyspnea on exertion Gastrointestinal: Denies: Abdominal pain, Nausea, Vomiting, Diarrhea, Melena, Hematochezia Genitourinary: Denies: Dysuria, Hematuria, Frequency Musculoskeletal: Denies: Myalgias, Arthralgias, Neck pain, Back pain, Swelling, Extremity Pain, -, - Skin: Denies: Rash, Wounds Neurological: Reports: Weakness, Numbness Psych: Denies: Depression, Anxiety Hematologic: Denies: Easy bruising, Easy bleeding Allergy: Denies: Uticaria, Swelling of the mouth STROKE Vital Signs/Narrative: Vital Signs Temp Pulse Resp BP Pulse Ox 06/16/20 09:21 97.7 F L 89 21 H 139/63 H 95 - NIHSS Initial 1a Level of Consciousness: 0 1b LOC Questions (Score 2 if aphasic/stupor): 0 1c LOC Commands (Only score 1st attempt): 0 2 Best Gaze (If aphasic, use reflexive mvmts.): 0 3 Visual: 0 4 Facial Palsy: 0 5 Motor Arm Right (UN = amputation/fusion): 1 5 Motor Arm Left: 0 6 Motor Leg Right: 1 6 Motor Leg Left: 0 7 Limb ataxia (Only + if out of proportion): 0 8 Sensory (Aphasia/stupor=0 or 1, coma=2): 0 9 Best Language: 0 10 Dysarthria (mute, coma=2, intubated=UN): 0 11 Extinction and Inattention (only scored if +): 0 Total Score: 2 General: Well nourished, Well developed Head: Normocephalic, Atraumatic Eyes: Perrl, EOMI. Negative for: Pale conjunctiva, Scleral icterus ENT: Moist mucous membranes, No rhinorrhea Neck: Supple, Nontender Cardiovascular: Regular rate, Regular rhythm, No murmurs, Normal S1, Normal S2 Respiratory: No distress, CTA bilaterally, Chest nontender Abdomen: Soft, Nontender, Nondistended, Normal bowel sounds Back: Nontender, Normal Inspection. Negative for: CVA tenderness Extremities: Nontender, Edema. Negative for: No edema Skin: Normal color, No rash, No Trauma. Negative for: Cyanosis, Diaphoresis, Jaundice Neurological: Alert, Oriented x3, Cranial nerves II-XII grossly intact, Normal Sensation, Normal DTR. Negative for: Normal Strength Psychological: Depressed Diagnostic/Tx/Re-eval Presents with strokelike symptoms and started at 0830. She was unable to rise from the commode according to daughter. Squad stated her's Ransom score was negative. Patient still has residual weakness on the right side. Stroke alert was activated. CT of the head was obtained as well as CTA of the head and neck. Impressions Brain CT 06/16/20 09:33 IMPRESSION: Chronic involutional changes of the brain. Stable encephalomalacia in the right temporal parietal occipital lobes. N.B. : The above information has been verbally conveyed by Jj Good to [facility] on 06/16/2020 09:50:14 (ET). Electronically Signed: Jj Good, at 9:51 EDT , Service support , ADDENDUM: 06/16/20 0958 IMPRESSION: Chronic involutional changes of the brain. Stable encephalomalacia in the right temporal parietal occipital lobes. N.B. : The above information has been verbally conveyed by Jj Good to [facility] on 06/16/2020 09:50:14 (ET). Electronically Signed: Jj Good, at 9:51 EDT , Service support , Head/Neck CTA 06/16/20 09:35 IMPRESSION: Calcified atherosclerotic plaque at the level of the left carotid bifurcation causing 50-69% stenosis. Calcific plaque at the origin of the right internal carotid artery causing less than 50% narrowing. Electronically Signed: Jj Good, at 10:00 EDT , Service support , 06/16/20 09:33 Brain/Head without Contrast [CT] Stat Chest 1 View [RAD] Stat 06/16/20 09:35 CTA Head AND Neck W/ Contrast [CT] Stat Laboratory Results 06/16/20 06/16/20 06/16/20 09:01 09:01 09:01 WBC 5.1 RBC 4.45 Hgb 13.0 Hct 41.0 MCV 92.1 MCH 29.2 MCHC 31.7 L RDW Std Deviation 43.6 RDW Coeff of Duc 12.8 Plt Count 232 MPV 9.5 Immature Gran % (Auto) 0.200 Neut % (Auto) 52.1 Lymph % (Auto) 36.6 Ballard % (Auto) 7.5 Eos % (Auto) 3.2 Baso % (Auto) 0.4 Absolute Neuts (auto) 2.6 Absolute Lymphs (auto) 1.85 Nucleated RBC % 0 PT 19.2 H INR 1.7 APTT 30.8 Sodium 139 Potassium 3.9 Chloride 110 H Carbon Dioxide 28.0 Anion Gap 1 L BUN 18 Creatinine 0.74 Estim Creat Clear Calc 40.72 Est GFR (MDRD) Af Amer 96 Est GFR (MDRD) Non-Af 79 BUN/Creatinine Ratio 24.3 H Glucose 156 H Calcium 9.1 Troponin I 0.054 H Did receive a call from Dr. Lux the radiologist who read the unenhanced scan. 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 This would not explain patient's present symptoms. Case was discussed with neurologist at [facility]. Plan is admission for further work-up. Also to increase Coumadin. - EKG Initial EKG Interpretation: - - Atrial paced rhythm with frequent premature ventricular complexes. 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 VT interval is 198 ms. QS duration 134 ms. QT duration 398 ms. Acosta is to the right. - Medical Decision Making Stroke Team Activated: Yes Reviewed Inclusion/Exclusion criteria: Yes No contraindications for IV Alteplase (t-PA) administration.: Yes Stroke work-up was initiated. Patient's INR subtherapeutic at 1.7. Patient has minimal residual on the right. Spoke with neurologist at [facility]. Recommended TIA work-up . Hospitalist was paged. Since patient is not a thrombolytic candidate will allow permissive hypertension. ED Disposition - Plan for ED Patient: Disposition: Acute Care Hospital [facility] Diagnosis: CVA (cerebral vascular accident), Multiple premature ventricular complexes, Hypertension
--- NOTE | 2020-06-16 09:35 | CT_ITS ---
STUDY: CTA HEAD AND NECK WITH CONTRAST REASON FOR EXAM: Female, 84 years old. Stroke RADIATION DOSAGE (If Supplied By Facility): CTDIvol = ( 19.32 ) mGy, DLP = ( 527.36 ) mGycm TECHNIQUE: CT angiography was performed with a multi-detector CT scanner. Data acquisition was obtained from the skull base through the vertex following intravenous administration of IV 100mL [id number]-[id number]. MIP images were reconstructed from the axial data set. Post-processing of the angiographic images was performed, with multiplanar reformation and 3D reconstruction. Individualized dose optimization techniques were used for this CT. COMPARISON: No relevant priors. FINDINGS: Normal bilateral petrous carotid arteries. There is calcified plaque formation of the right cavernous carotid artery, without a cross-sectional luminal stenosis. There is calcified plaque formation of the left cavernous carotid artery, without a cross-sectional luminal stenosis. Normal right A1 segments of the anterior cerebral artery. Normal left A1 segments of the anterior cerebral artery. Normal intact anterior communicating artery (ACOM). Normal bilateral A2 segments of the anterior cerebral arteries. Normal right M1 and M2 segments of the middle cerebral arteries, with a normal M1 bifurcation. Normal left M1 and M2 segments of the middle cerebral arteries, with a normal M1 bifurcation. There is a persistent origin of the right posterior cerebral artery with absence of the posterior communicating artery (PCOM). Normal left posterior communicating artery (PCOM). Normal bilateral vertebral arteries. Normal basilar artery with a normal basilar bifurcation. The visualized bilateral superior cerebellar (SCA) arteries are normal. Normal bilateral P1, P2 and visualized P3 segments of the posterior cerebral arteries. There is no demonstrated aneurysm of the [place] of [place]. There is no demonstrated abnormality of the visualized brain. AORTIC ARCH: There is atherosclerotic calcific plaque formation of the aortic arch and great vessels arising from the aortic arch, without a hemodynamically significant stenosis. There is a normal origin of the brachiocephalic, left common carotid, and left subclavian arteries. RIGHT CAROTID ARTERIES: Normal right common carotid artery (CCA). Normal right common carotid bulb. There is mild atherosclerotic plaque formation of the origin of the right internal carotid artery with less than 50% cross sectional diameter stenosis. Normal visualized cervical portion of the right internal carotid artery. Normal origin of the right external carotid artery (ECA). LEFT CAROTID ARTERIES: Normal left common carotid artery (CCA). Normal left common carotid bulb. There is moderate atherosclerotic plaque formation of the origin of the left internal carotid artery with an estimated stenosis of 50-69% stenosis. Normal visualized cervical portion of the left internal carotid artery. Normal origin of the left external carotid artery (ECA). VERTEBRAL ARTERIES: Normal bilateral vertebral arteries. CT/CTA Head AND Neck W/ Contrast IMPRESSION: Calcified atherosclerotic plaque at the level of the left carotid bifurcation causing 50-69% stenosis. Calcific plaque at the origin of the right internal carotid artery causing less than 50% narrowing. Electronically Signed: Jj Good, at 10:00 EDT , Service support ,
--- NOTE | 2020-06-16 09:40 | NURSING ---
FACESHEET FAXED TO [facility]
[2020-06-16 09:45] LABS: Absolute Lymphocyte Count 1.85 X10^3/uL (0.83-4.51); Absolute Neutrophil Count 2.6 X10^3/uL (2.0-7.7); Basophil# 0.02 X10^3/uL; Basophil% 0.4 % (0-1); Eosinophil# 0.16 X10^3/uL; Eosinophils% 3.2 % (0-5); Lymphocyte # 1.85 X10^3/ul (4.0); Lymphocyte % 36.6 % (19-41); Mean Corp Hgb Conc 31.7 g/dL (32-36); Mean Corpuscular Hgb 29.2 pg (27.0-32.0); Mean Corpuscular Volume 92.1 fL (81-99); Mean Platelet Vol. 9.5 fl (6.2-12.0); Monocyte# 0.38 X10^3/uL; Monocyte% 7.5 % (0-10); NRBC Flagged by Analyzer 0 % (0-5); Neutrophil # 2.64 X10^3/uL (2.7-7.7); Neutrophil % 52.1 % (47-70); Platelet Count 232 K/mm3 (150-450); RBC Distribution Width CV 12.8 % (11.6-14.6); RBC Distribution Width SD 43.6 fl (35.1-43.9); Red Blood Count 4.45 M/mm3 (4.2-5.4); White Blood Count 5.1 K/mm3 (4.4-11.0)
[2020-06-16 09:52] LABS: International Normalized Ratio 1.7; Prothrombin Time (Protime)PT. 19.2 SECONDS (11.7-14.9)
[2020-06-16 09:53] LABS: Partial Thromboplast Time 30.8 Seconds (24.1-36.2)
[2020-06-16 09:56] LABS: Anion Gap 1 (5-15); BUN 18 mg/dL (7-18); BUN/Creat Ratio 24.3 RATIO (10-20); Calcium,Total 9.1 mg/dL (8.5-10.1); Chloride 110 mmol/L (98-107); Creatinine, Serum 0.74 mg/dL (0.55-1.02); EST Glomerular Filtration Rate 79 mL/min (>60); Est Glom Filt Rate - Afr Amer 96 mL/min (>60); Estimated Creatinine Clearance 40.72 ml/min; Glucose 156 mg/dL (74-106); Potassium 3.9 mmol/L (3.5-5.1); Sodium Level 139 mmol/L (136-145)
--- NOTE | 2020-06-16 10:03 | NURSING ---
[id number] STROKE ALERT CALLED
--- NOTE | 2020-06-16 10:10 | RAD_ITS ---
STUDY: X-RAY CHEST REASON FOR EXAM: Female, 84 years old. STROKE SYM TECHNIQUE: Single AP portable view of the chest. COMPARISON: Comparison is made with prior study dated 01/17/2020. FINDINGS: EKG electrodes are seen. Hyperinflation. Increased bronchovascular markings suggestive of emphysematous changes. There is no demonstrated pleural abnormality. Normal size heart. A left-sided dual-chamber pacemaker is seen. Normal mediastinum and roc. Normal visualized pulmonary arteries. There is atherosclerotic calcification of the aortic arch with tortuosity. Normal visualized thoracic spine. Normal visualized ribs, clavicles, and shoulders. There is no demonstrated abnormality of the visualized soft tissue structures of the upper abdomen. RAD/Chest 1 View IMPRESSION: Hyperinflation. The lungs are clear. Electronically Signed: Jj Good, at 10:25 EDT , Service support ,
--- NOTE | 2020-06-16 10:24 | NURSING ---
DR BECKY QUESADA
--- NOTE | 2020-06-16 10:31 | NURSING ---
PCU CVA BECKY
--- NOTE | 2020-06-16 10:34 | CM.ED ---
Social Work Patient with strong alert. This social psychologist meeting with patient in room. Introduced self and social psychologist role. Patient A&Ox3. No family present in room. Patient voicing to be doing okay. Patient reports that family is aware of patient being in the emergency room and reason for visit. Patient denies any needs or for this social psychologist to contact patient family. Breonna Newby MSW, LYSSA-S
--- NOTE | 2020-06-16 10:57 | PCM.HP.STD ---
Problem List (1) Atrial fibrillation with RVR Status: Inactive (2) Elevated troponin Status: Acute (3) Pre-syncope Status: Inactive (4) Pre-syncope Status: Inactive (5) Atrial fibrillation Status: Chronic (6) CVA (cerebral vascular accident) Status: Acute (7) Multiple premature ventricular complexes Status: Chronic (8) Hypertension Status: Chronic (9) Elevated blood pressure reading in office with white coat syndrome, without diagnosis of hypertension Status: Chronic (10) Pacemaker Status: Chronic (11) Orthostatic hypotension Status: Chronic (12) Syncope Status: Resolved (13) History of syncope Status: Chronic Comment: 11/02/2018 (14) RBBB Status: Chronic (15) History of non-ST elevation myocardial infarction (NSTEMI) Status: Chronic (16) H/O cardiac catheterization Status: Chronic Comment: Normal coronaries per cath 08/25/[address] Covington [facility] (17) History of TIA (transient ischemic attack) Status: Chronic (18) Benign essential hypertension Status: Chronic (19) Lower gastrointestinal bleeding Status: Inactive (20) Hyperlipidemia Status: Chronic (21) Hypothyroidism Status: Chronic (22) History of right mastectomy Status: Chronic (23) History of breast cancer Status: Chronic (24) History of vasculitis Status: Chronic (25) Acute GI bleeding Status: Resolved History of Present Illness Date of Admission: 06/16/20 Chief Complaint: right arm weakness The patient is a 84 year old F around 8 AM was on the toilet and then noted that her right arm went weak. Patient's family member, who routinely checks on her check her blood pressure, was there try to get patient up and patient does state that both her legs were weak. EMS was contacted and patient was brought to the emergency room. Patient unable to specify how long she had the right arm weakness but it has completely resolved at this time. Patient never had any events like this before. Patient underwent a CAT scan that showed some involutional changes but no acute process. CTA showed 50 to 69% stenosis of the left carotid at the bifurcation. Patient being admitted for further TIA work-up. [] Past Medical History Past Medical History (Chronic Problems): Chronic Problems (Last Reviewed 05/24/20 @ 10:13 by Reina PAZ, PA) Atrial fibrillation (Chronic) Multiple premature ventricular complexes (Chronic) Hypertension (Chronic) Elevated blood pressure reading in office with white coat syndrome, without diagnosis of hypertension (Chronic) Pacemaker (Chronic) Orthostatic hypotension (Chronic) History of syncope (Chronic) 11/02/2018 RBBB (Chronic) History of non-ST elevation myocardial infarction (NSTEMI) (Chronic 08/23/18) H/O cardiac catheterization (Chronic 08/25/18) Normal coronaries per cath 08/25/[address] Covington, [facility] History of TIA (transient ischemic attack) (Chronic) Benign essential hypertension (Chronic) Hyperlipidemia (Chronic) Hypothyroidism (Chronic) History of right mastectomy (Chronic) History of breast cancer (Chronic) History of vasculitis (Chronic) Medical History: Medical History (Last Reviewed 06/16/20 @ 11:[address] Dheeraj Small, DO) Elevated blood pressure reading in office with white coat syndrome, without diagnosis of hypertension (Chronic) R03.0 Orthostatic hypotension (Chronic) I95.1 Syncope (Resolved) R55 History of syncope (Chronic) Z87.898 11/02/2018 RBBB (Chronic) I45.10 History of non-ST elevation myocardial infarction (NSTEMI) (Chronic) Onset Date: 08/23/18 I25.2 History of TIA (transient ischemic attack) (Chronic) Benign essential hypertension (Chronic) I10 Lower gastrointestinal bleeding (Acute) K92.2 Hyperlipidemia (Chronic) E78.5 Hypothyroidism (Chronic) E03.9 History of breast cancer (Chronic) Z85.3 History of vasculitis (Chronic) Z86.79 Back pain M54.9 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 Gastric polyp K31.7 Osteoarthritis of spine M47.9 Abnormal stress test R94.39 Hypokalemia E87.6 Orthostatic hypotension (Resolved) I95.1 Allergies omeprazole Allergy (Severe, Verified 06/16/20 09:59) Swelling Tongue swelling, was able to take IV lasix levofloxacin [From Levaquin] Allergy (Verified 06/16/20 09:59) Angioedema lisinopril Allergy (Verified 06/16/20 09:59) Swelling Penicillins Allergy (Verified 06/16/20 09:59) Itching Sulfa (Sulfonamide Antibiotics) Allergy (Verified 06/16/20 09:59) Angioedema amlodipine Adverse Reaction (Severe, Verified 06/16/20 09:59) severe hypotension Home Medications: Ambulatory Orders Medication Instructions Recorded Atorvastatin Calcium [Lipitor] 20 mg PO QHS 08/20/13 Cyanocobalamin (Vitamin B-12) 1,000 mcg PO DAILY 11/02/18 [B-12] Potassium Chloride [Klor-Con 10] 10 meq PO DAILY 11/02/18 warfarin 3 mg tablet 3 mg PO MOWEFR 12/11/18 ferrous sulfate 325 mg (65 mg 325 mg PO BID tab 04/08/19 iron) tablet levothyroxine 75 mcg tablet 75 mcg PO DAILY 04/08/19 isosorbide mononitrate 30 mg 30 mg PO DAILY #90 tab 10/29/19 tablet,extended release 24 hr Warfarin Sodium [Coumadin] 4 mg PO SUTUTHSA 01/17/20 Clobetasol Propionate/Emoll 1 applicatio TP BID PRN 05/28/20 [Clobetasol Emollient 0.05% Crm] carvedilol 12.5 mg tablet 12.5 mg PO BID #60 tab 06/13/20 Surgical History: Surgical History (Last Reviewed 06/16/20 @ 11:[address] Dheeraj Small DO) Pacemaker (Chronic) Z95.0 H/O cardiac catheterization (Chronic) Onset Date: 08/25/18 Z98.890 Normal coronaries per cath 08/25/[address] Covington, [facility] History of right mastectomy (Chronic) Z90.11 History of colonoscopy Onset Date: ~08/2018 Z98.890 History of esophagogastroduodenoscopy (EGD) Onset Date: ~08/2018 Z98.890 History of open reduction and internal fixation (ORIF) procedure Z98.890 left arm Surgical History: mastectomy, - - Pacemaker placement, cardiac catheterization, loop recorder implantation, right mastectomy; and plate in left arm. 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 Dheeraj Small DO) Father Myocardial infarction Sister CAD (coronary artery disease) History Items: - - Patient does not know Paternal Family History: Family History (Last Reviewed 06/16/20 @ 11:[address] Dheeraj Small DO) Father Myocardial infarction Sister CAD (coronary artery disease) History Items: - - Patient does not know Review of Systems Constitutional: Denies: Anorexia, Fever, Night Sweats Eyes: Denies: Blurred vision, Double vision HEENT: Denies: Head Aches, Sinus Congestion, Sinus Drainage Cardiovascular: Denies: Chest Pain, Palpitations Respiratory: Denies: Cough, Shortness of breath at rest, Sputum production Gastrointestinal: Denies: Abdominal Pain, Nausea, Vomiting Genitourinary: Denies: Dysuria Musculoskeletal: Denies: Joint Pain, Joint Tenderness Neurological: Reports: Balance problems, Focal weakness, Incoordination. Denies: Numbness Comment: All review of systems were negative except as mentioned above in the history of present illness and the other review of systems. VTE Information - Inpt Only VTE Present on Admission: No VTE Mechan Device Prophylaxis: None VTE Pharm Prophylaxis ordered?: Yes Patient Problems: Active and Suspected Problems (Last Reviewed 05/24/20 @ 10:13 by Reina PAZ, PA) CVA (cerebral vascular accident) (Acute) - Physical Exam Vitals/I&O's: Vital Signs Temp Pulse Resp BP Pulse Ox 36.5 C L 84 15 152/82 H 96 06/16/20 10:35 06/16/20 10:35 06/16/20 10:35 06/16/20 10:35 06/16/20 10:35 Oxygen Delivery Method Room Air Weight: 68.7 kg Body Mass Index (BMI) 23.7 Finger Stick Blood Glucose 168 General: Alert, Oriented x3, Cooperative, No apparent distress, Well developed, Well nourished HEENT: Atraumatic, PERRLA, EOMI, Normocephalic Oral: Moist Mucosa, No Gingival or Mucosal Lesions/ Ulcerations Neck: No Nodes, Thyroid Normal Size and Texture Lungs: Clear to auscultation, Normal air movement, No rhonchi, No wheeze, No rales Cardiovascular: Regular rate, Regular Rhythm, Normal S1, Normal S2 Abdomen: Bowel Sounds Present, Soft, Non Tender, Non-Distended, No Hepato-splenomegaly Extremities: No edema, No Calf Tenderness Skin: No rashes, No breakdown Musculoskeletal: No Tenderness to Palpation of Joints or Extremities, No Muscle Wasting Neurological: Cranial nerves II-XII grossly intact, Deep Tendon Reflexes 2+/4 and Symmetrical, Motor Exam 5/5 strength throughout - No some drift noted of the right lower extremity but was able to raise it up very easily on her own., Sensory exam intact to light touch and pain Psych/Mental Status: Normal Affect, Appropriate Laboratory Results 06/16/20 09:01: WBC 5.1, RBC 4.45, Hgb 13.0, Hct 41.0, MCV 92.1, MCH 29.2, MCHC 31.7 L, RDW Std Deviation 43.6, RDW Coeff of Dcu 12.8, Plt Count 232, MPV 9.5, Immature Gran % (Auto) 0.200, Neut % (Auto) 52.1, Lymph % (Auto) 36.6, Millard % (Auto) 7.5, Eos % (Auto) 3.2, Baso % (Auto) 0.4, Absolute Neuts (auto) 2.6, Absolute Lymphs (auto) 1.85, Nucleated RBC % 0 06/16/20 09:01: PT 19.2 H, INR 1.7, APTT 30.8 06/16/20 09:01: Sodium 139, Potassium 3.9, Chloride 110 H, Carbon Dioxide 28.0, Anion Gap 1 L, BUN 18, Creatinine 0.74, Estim Creat Clear Calc 40.72, Est GFR (MDRD) Af Amer 96, Est GFR (MDRD) Non-Af 79, BUN/Creatinine Ratio 24.3 H, Glucose 156 H, Calcium 9.1, Troponin I 0.054 H EKG showed atrial placed rhythm with some PVCs. Right bundle branch block. No other acute changes. Clinical Impression(s) from Imaging Studies Brain CT 06/16/20 09:33 IMPRESSION: Chronic involutional changes of the brain. Stable encephalomalacia in the right temporal parietal occipital lobes. N.B. : The above information has been verbally conveyed by Jj Good to Anders Ann on 06/16/2020 09:50:14 (ET). Electronically Signed: Jj Good, at 9:51 EDT , Service support , ADDENDUM: 06/16/20 0958 IMPRESSION: Chronic involutional changes of the brain. Stable encephalomalacia in the right temporal parietal occipital lobes. N.B. : The above information has been verbally conveyed by Jj Good to Anders Ann on 06/16/2020 09:50:14 (ET). Electronically Signed: Jj Good, at 9:51 EDT , Service support , Head/Neck CTA 06/16/20 09:35 IMPRESSION: Calcified atherosclerotic plaque at the level of the left carotid bifurcation causing 50-69% stenosis. Calcific plaque at the origin of the right internal carotid artery causing less than 50% narrowing. Electronically Signed: Jj Good, at 10:00 EDT , Service support , Chest X-Ray 06/16/20 10:10 IMPRESSION: Hyperinflation. The lungs are clear. Electronically Signed: Jj Good, at 10:25 EDT , Service support , Current Medications Labetalol HCl (Labetalol (Prefilled) 20 Mg/4 Ml) 20 mg IV X1 PRN PRN Reason: BLOOD PRESSURE Assessment/Plan All Active Problems (Last Reviewed 05/24/20 @ 10:13 by Reina PAZ, PA) Elevated troponin (Acute) CVA (cerebral vascular accident) (Acute) Syncope (Resolved) Acute GI bleeding (Resolved) Orthostatic hypotension (Resolved) 1. Presumed transient ischemic attack: Patient is essentially asymptomatic at this time though she does have some minimal drift in the right lower extremity. CAT scan was unremarkable. Patient has a [employer] ADDDR 01 and is looking on the [employer] website does not mention that it is MRI compatible. Therefore, we will not be able to do an MRI but will repeat the head CT in the morning, check a 2D echocardiogram and then consult [facility] teleneurology for further input. Patient has a known history of atrial fibrillation is on warfarin. INR was subtherapeutic at 1.7. This could be embolic but also could be related with the a carotid stenosis as well. Will increase her atorvastatin from 20 to 40 mg daily. 2. Atrial fibrillation: Continue with warfarin and carvedilol 3. VTE prophylaxis: Patient will be on enoxaparin until her INR is therapeutic in the hospital 4. Advanced care planning: Discussed with the patient. Patient wishes to be DNR Comfort Care arrest no intubation. Inpatient E&M: 54725 Init Hosp L3
--- NOTE | 2020-06-16 11:20 | ECHOCS_ITS ---
Reason For Study: TIA/CVA Procedure This was a 2D Doppler, Color Flow transthoracic echocardiogram. The study was technically difficult. Exam performed portable in patient room. Left Ventricle Normal LV size. The estimated ejection fraction is 45 %. Stage 1 diastolic dysfunction. Mid- Posterior: Hypokinetic. Posterior-Basal: Hypokinetic. There are regional wall motion abnormalities as specified. Atria Normal left atrium. Normal right atrium. Patent foramen ovale. Mitral Valve There is moderate mitral annular calcification. Mild focal mitral valve calcification. Mild (1+) mitral valve insufficiency. Tricuspid Valve Normal tricuspid valve. Mild tricuspid valve insufficiency. Aortic Valve Trisinus/trileaflet aortic valve. Pulmonic Valve Normal pulmonic valve. Great Vessels Normal aortic root. The pulmonary artery is normal size. Normal inferior vena cava. Pericardium/Pleural No pericardial effusion. Medication Performed a rapid injection of agitated mix of 9 cc saline and 1cc air to assess for atrial septal defect. Diluted definity 4ml given slow IV push to enhance endocardial definition. MMode/2D Measurements & Calculations LVIDd: 5.3 cm IVSd: 1.1 cm Ao root diam: 3.3 cm LVIDs: 3.6 cm LVPWd: 0.98 cm RVDd: 3.0 cm FS: 31.8 % LAV(MOD-bp): 34.6 ml LVAd ap4: 28.9 cm2 SV(MOD-sp4): 44.7 ml LAV(MOD-bp) Indexed: 19.3 ml/m2 EDV(MOD-sp4): 89.8 ml LAV(MOD-sp2): 46.7 ml EDV(sp4-el): 94.9 ml LAV(MOD-sp4): 25.2 ml LVAs ap4: 18.6 cm2 ESV(MOD-sp4): 45.0 ml ESV(sp4-el): 47.5 ml EF(MOD-sp4): 49.8 % EF(sp4-el): 49.9 % SV(sp4-el): 47.4 ml LA A4 area: 12.4 cm2 LA dimension(2D): 3.4 cm RA A4 area: 12.0 cm2 Time Measurements MV dec time: 0.22 sec Doppler Measurements & Calculations MV E max sanjiv: 60.4 cm/sec Lat Peak E' Sanjiv: 3.8 cm/sec Med Peak E' Sanjiv: 2.9 cm/sec MV A max sanjiv: 93.8 cm/sec E/E' lat: 15.8 E/E' med: 20.8 MV E/A: 0.64 Ao V2 max: 157.2 cm/sec LV V1 max: 78.6 cm/sec TR max sanjiv: 217.5 cm/sec Ao max P.9 mmHg LV V1 max P.5 mmHg TR max P.9 mmHg Interpretation Summary Patent foramen ovale. Stage 1 diastolic dysfunction. The estimated ejection fraction is 45 %. There is moderate mitral annular calcification. Normal LV size. Posterior-Basal: Hypokinetic Mid-Posterior: Hypokinetic Ordering Physician: Dheeraj Small Referring Physician: RICK TOVAR Performed By: Arleen Dacosta RDCS
--- NOTE | 2020-06-16 13:38 | CASEMGMT ---
SW completed a PHQ 9 with patient as she may have had a TIA. She scored a 4 which indicates minimal depression. Patient denied being depressed. Michaela OMALLEY MSW
[2020-06-16] MEDS: Ferrous Sulfate 325 MG Tablet PO ×2 (15:54→17:43)
[2020-06-16] MEDS: Enoxaparin 40 MG/0.4 ML Syringe SC (15:55)
[2020-06-16] MEDS: Atorvastatin Calcium 40 MG Tablet PO (21:13)
[2020-06-16] MEDS: Carvedilol 12.5 MG Tablet PO (21:13)
[2020-06-17 03:00] VITALS: BP 129/62; PULSE 61; PULSE 71; RESP 20; TEMP 36.8; O2SAT 93
[2020-06-17] MEDS: Levothyroxine 75 MCG Tablet PO (05:21)
[2020-06-17 07:00] VITALS: BP 151/69; PULSE 62; PULSE 77; RESP 18; TEMP 36.4; O2SAT 93
[2020-06-17 07:50] VITALS: O2SAT 93
[2020-06-17 08:05] LABS: Absolute Neutrophil Count 2.4 X10^3/uL (2.0-7.7); Basophil# 0.02 X10^3/uL; Basophil% 0.4 % (0-1); Eosinophil# 0.17 X10^3/uL; Eosinophils% 3.5 % (0-5); Hematocrit 39.8 % (37-47); Hemoglobin 12.6 g/dL (12.0-15.0); Lymphocyte % 38.6 % (19-41); Mean Corp Hgb Conc 31.7 g/dL (32-36); Mean Corpuscular Volume 91.7 fL (81-99); Mean Platelet Vol. 9.6 fl (6.2-12.0); Monocyte# 0.46 X10^3/uL; Monocyte% 9.3 % (0-10); NRBC Flagged by Analyzer 0 % (0-5); Neutrophil # 2.36 X10^3/uL (2.7-7.7); Platelet Count 222 K/mm3 (150-450); RBC Distribution Width CV 12.7 % (11.6-14.6); RBC Distribution Width SD 43.2 fl (35.1-43.9); Red Blood Count 4.34 M/mm3 (4.2-5.4); White Blood Count 4.9 K/mm3 (4.4-11.0)
[2020-06-17 08:15] LABS: Anion Gap 4 (5-15); BUN 18 mg/dL (7-18); BUN/Creat Ratio 26.1 RATIO (10-20); Calcium,Total 8.8 mg/dL (8.5-10.1); Chloride 110 mmol/L (98-107); Cholesterol 143 mg/dL (200); Creatinine, Serum 0.69 mg/dL (0.55-1.02); EST Glomerular Filtration Rate 86 mL/min (>60); Est Glom Filt Rate - Afr Amer 104 mL/min (>60); Estimated Creatinine Clearance 40.72 ml/min; Glucose 94 mg/dL (74-106); High Density Lipoprotein 52 mg/dL; Potassium 3.8 mmol/L (3.5-5.1); Sodium Level 142 mmol/L (136-145); Triglycerides 72 mg/dL; Very Low Density Lipoprotein 14 mg/dL (5-40)
[2020-06-17 08:55] LABS: International Normalized Ratio 1.7
[2020-06-17] MEDS: Cyanocobalamin 500 MCG Tablet 1000 MCG PO (09:07)
[2020-06-17] MEDS: Carvedilol 12.5 MG Tablet PO (09:08)
[2020-06-17] MEDS: Enoxaparin 40 MG/0.4 ML Syringe SC (09:09)
[2020-06-17] MEDS: Aspirin 81 MG TAB.CHEW PO (09:13)
--- NOTE | 2020-06-17 09:30 | CT_ITS ---
STUDY: CT BRAIN WITHOUT CONTRAST REASON FOR EXAM: Female, 84 years old. TIA RADIATION DOSAGE (If Supplied By Facility): CTDIvol = ( 44.99 ) mGy, DLP = ( 779.24 ) mGycm TECHNIQUE: Transaxial CT imaging of the brain was performed without administration of intravenous contrast material. Individualized dose optimization techniques were used for this CT. COMPARISON: 06/16/2020 FINDINGS: Normal soft tissue structures. Normal calvarium. Normal size ventricles and extra-axial spaces for the patient''s age. Normal white matter tracts of the cerebral hemispheres. Normal basal ganglia and thalami. Normal brainstem. Normal cerebellum. There is no intracranial hemorrhage. Encephalomalacia in the posterior right temporal and parietal lobes consistent with a chronic infarct. Normal visualized paranasal sinuses. CT/Brain/Head without Contrast IMPRESSION: No change in 06/16/2020. Electronically Signed: Eduard Mckeon MD at 9:56 EDT Tel , Service support ,
--- NOTE | 2020-06-17 09:57 | TELEMED_ITS ---
[facility] Telemed has confirmed receipt of a request for visit. This document confirms receipt of the order initiating the consult. To find the results of the consultation, please view the patient's reports for the scanned Telemed Consult.
--- NOTE | 2020-06-17 10:05 | CASEMGMT ---
RN PHYLLIS Face to Face with patient for initial transition planning/care coordination assessment. RN CM introduced self and role at [facility]. Patient lying in bed, alert and oriented. Patient willing to participate in assessment and is able to answer all questions appropriately. Care providers, pharmacy, and demographics verified. Patient wishes to discharge home, denies need for home health at this time. Patient states she has no further needs or concerns at this time. CM to follow for discharge planning needs that may arise. PCP: Gennaro Specialists: none Preferred Pharmacy: [facility] Insurance: Tesfaye RODRIGUEZ Prescription Benefit: yes Living Will/HPOA: none LNOK: sister Living Arrangements: Patient lives alone in a condo with 1 step to enter the home. Patient is independent at home. Transportation: sister DME/HHC: Patient states she has cane, walker, and raised toilet at home. Patient denies previous HHC. Disposition Plan: Patient to discharge home with family support and follow-up plans in place. Karolina ARIZA, RN, CM
[2020-06-17 10:29] VITALS: BMI 22.0
[2020-06-17 11:05] VITALS: BP 111/55; PULSE 73; RESP 16; TEMP 37.3; O2SAT 93
[2020-06-17] MEDS: Ferrous Sulfate 325 MG Tablet PO (11:43)
--- NOTE | 2020-06-17 12:26 | PCM.DC ---
- Discharge Diagnoses Current Active Problems: Current Active and Chronic Problems (Last Reviewed 06/16/20 @ 11:[address] Dheeraj Small, DO) Elevated troponin (Acute) Atrial fibrillation (Chronic) CVA (cerebral vascular accident) (Acute) Multiple premature ventricular complexes (Chronic) Hypertension (Chronic) Elevated blood pressure reading in office with white coat syndrome, without diagnosis of hypertension (Chronic) Pacemaker (Chronic) Orthostatic hypotension (Chronic) History of syncope (Chronic) 11/02/2018 RBBB (Chronic) History of non-ST elevation myocardial infarction (NSTEMI) (Chronic 08/23/18) H/O cardiac catheterization (Chronic 08/25/18) Normal coronaries per cath 08/25/[address] C[place]ton, [facility] History of TIA (transient ischemic attack) (Chronic) Benign essential hypertension (Chronic) Hyperlipidemia (Chronic) Hypothyroidism (Chronic) History of right mastectomy (Chronic) History of breast cancer (Chronic) History of vasculitis (Chronic) You will use the following diet at home:: Cardiac Your food should be the consistency of: Regular Your liquids should be the consistency of: Regular/Thin Discharge Activity: Return to Normal Activity Call your doctor if you observe: - - increased weakness Additional Instructions: You will need to have your INR (lab) checked this coming week. Allergies/Adverse Reactions: Allergies omeprazole Allergy (Severe, Verified 06/16/20 09:59) Swelling Tongue swelling, was able to take IV lasix levofloxacin [From Levaquin] Allergy (Verified 06/16/20 09:59) Angioedema lisinopril Allergy (Verified 06/16/20 09:59) Swelling Penicillins Allergy (Verified 06/16/20 09:59) Itching Sulfa (Sulfonamide Antibiotics) Allergy (Verified 06/16/20 09:59) Angioedema amlodipine Adverse Reaction (Severe, Verified 06/16/20 09:59) severe hypotension Medications to take at Discharge Atorvastatin Calcium [Lipitor] 20 mg PO QHS 08/20/13 Cyanocobalamin (Vitamin B-12) [B-12] 1,000 mcg PO DAILY 11/02/18 Potassium Chloride [Klor-Con 10] 10 meq PO DAILY 11/02/18 warfarin 3 mg tablet 3 mg PO MOWEFR 12/11/18 ferrous sulfate 325 mg (65 mg iron) tablet 325 mg PO BID tab 08/22/19 levothyroxine 75 mcg tablet 75 mcg PO DAILY 04/08/19 isosorbide mononitrate 30 mg tablet,extended release 24 hr 30 mg PO DAILY #90 tab 10/29/19 Warfarin Sodium [Coumadin] 4 mg PO SUTUTHSA 01/17/20 carvedilol 12.5 mg tablet 12.5 mg PO BID #60 tab 06/13/20 Primary Care Physician: Elmo Burdick DO [Primary Care Provider] - Within 1 Week Test Results: Test results from this visit will be discussed in further detail at your follow-up appointment, if applicable. Proposed Discharge Date: 06/17/20
--- NOTE | 2020-06-17 12:27 | DS.PCM_ITS ---
Discharge Date and Diagnosis - Problem List Patient Problems: Active and Suspected Problems (Last Reviewed 06/16/20 @ 11:[address] Dheeraj Small DO) Elevated troponin (Acute) CVA (cerebral vascular accident) (Acute) Date of Admission: 06/16/20 Date of Discharge: 06/17/20 - Primary Discharge Diagnosis Acute Problems: Active Problems (Last Reviewed 06/16/20 @ 11:[address] Dheeraj Small DO) Elevated troponin (Acute) CVA (cerebral vascular accident) (Acute) - Secondary Discharge Diagnosis Chronic Problems: Chronic Problems (Last Reviewed 06/16/20 @ 11:[address] Dheeraj Small DO) Atrial fibrillation (Chronic) Multiple premature ventricular complexes (Chronic) Hypertension (Chronic) Elevated blood pressure reading in office with white coat syndrome, without diagnosis of hypertension (Chronic) Pacemaker (Chronic) Orthostatic hypotension (Chronic) History of syncope (Chronic) 11/02/2018 RBBB (Chronic) History of non-ST elevation myocardial infarction (NSTEMI) (Chronic 08/23/18) H/O cardiac catheterization (Chronic 08/25/18) Normal coronaries per cath 08/25/[address] [place], [facility] History of TIA (transient ischemic attack) (Chronic) Benign essential hypertension (Chronic) Hyperlipidemia (Chronic) Hypothyroidism (Chronic) History of right mastectomy (Chronic) History of breast cancer (Chronic) History of vasculitis (Chronic) Hospital Course and Treatment Imaging Results: 06/17/20 09:30 Brain/Head without Contrast [CT] Timed Operations: None Procedures: 2-D Echocardiogram - Interpretation Summary Patent foramen ovale. Stage 1 diastolic dysfunction. The estimated ejection fraction is 45 %. There is moderate mitral annular calcification. Normal LV size. Posterior-Basal: Hypokinetic Mid-Posterior: Hypokinetic Summary of Care Provided: The patient is a 84 year old F presents with acute onset of right arm weakness. Symptoms resolved spontaneously. Patient had a CAT scan that showed no acute changes. Echocardiogram was performed showed an EF of 45% which was stable from January of this year. Repeat CAT scan was performed as patient has a pacemaker that is not compatible with an MRI did not show any acute changes. Patient was seen in consultation by [facility] teleneurology who felt the patient had TIA related with her subtherapeutic INR. Advised continue with warfarin with goal INR between 2 and 3. Patient is otherwise doing well states that her arm is still weak but muscle strength is continue to be 5 out of 5. Patient be discharged home in stable condition. Patient to follow-up with her primary care doctor, cardiology and neurology. [] Patient Problems: Active and Suspected Problems (Last Reviewed 06/16/20 @ 11:[address] Dheeraj Small, DO) Elevated troponin (Acute) CVA (cerebral vascular accident) (Acute) - Physical Exam Vitals/I&O's: Vital Signs Temp Pulse Resp BP Pulse Ox 37.3 C H 73 16 111/55 L 93 06/17/20 11:05 06/17/20 11:05 06/17/20 11:05 06/17/20 11:05 06/17/20 11:05 Oxygen Delivery Method Room Air Weight: 63.911 kg Body Mass Index (BMI) 22.0 Finger Stick Blood Glucose 168 Intake and Output for Last 24 Hours 06/15/20 06/16/20 06/17/20 23:59 23:59 23:59 Intake Total 240 / 480 760 / 760 Balance 240 / 480 760 / 760 General: Alert, No apparent distress HEENT: Atraumatic, Normocephalic Neurological: Motor Exam 5/5 strength throughout Laboratory Results 06/16/20 15:06: Troponin I 0.058 H 06/17/20 06:25: WBC 4.9, RBC 4.34, Hgb 12.6, Hct 39.8, MCV 91.7, MCH 29.0, MCHC 31.7 L, RDW Std Deviation 43.2, RDW Coeff of Duc 12.7, Plt Count 222, MPV 9.6, Immature Gran % (Auto) 0.200, Neut % (Auto) 48.0, Lymph % (Auto) 38.6, [place] % (Auto) 9.3, Eos % (Auto) 3.5, Baso % (Auto) 0.4, Absolute Neuts (auto) 2.4, Absolute Lymphs (auto) 1.90, Nucleated RBC % 0 06/17/20 06:25: PT 19.0 H, INR 1.7 06/17/20 06:25: Sodium 142, Potassium 3.8, Chloride 110 H, Carbon Dioxide 28.0, Anion Gap 4 L, BUN 18, Creatinine 0.69, Estim Creat Clear Calc 40.72, Est GFR (MDRD) Af Amer 104, Est GFR (MDRD) Non-Af 86, BUN/Creatinine Ratio 26.1 H, Glucose 94, Calcium 8.8, Triglycerides 72, Cholesterol 143, LDL Cholesterol 77, VLDL Cholesterol 14, HDL Cholesterol 52 Current Medications Acetaminophen (Acetaminophen 325 Mg Tablet) 650 mg PO Q6H PRN PRN PRN Reason: Pain Score 1-10/Temp > 100.7 F Aspirin (Aspirin 81 Mg Tab.Chew) 81 mg PO DAILY@0800 [facility] Last Admin: 06/17/20 09:13 Dose: 81 mg Documented by: Atorvastatin Calcium (Atorvastatin Calcium 40 Mg Tablet) 40 mg PO QHS [facility] Last Admin: 06/16/20 21:13 Dose: 40 mg Documented by: Carvedilol (Carvedilol 12.5 Mg Tablet) 12.5 mg PO BID [facility] Last Admin: 06/17/20 09:08 Dose: 12.5 mg Documented by: Clobetasol Propionate (Clobetasol Propionate 0.05% Cream) 1 applic TOPICAL BID PRN PRN Reason: ITCHING Cyanocobalamin (Cyanocobalamin 500 Mcg Tablet) 1,000 mcg PO DAILYCM [facility] Last Admin: 06/17/20 09:07 Dose: 1,000 mcg Documented by: Enoxaparin Sodium (Enoxaparin 40 Mg/0.4 Ml Syringe) 40 mg SC DAILY [facility] Last Admin: 06/17/20 09:09 Dose: 40 mg Documented by: Ferrous Sulfate (Ferrous Sulfate 325 Mg Tablet) 325 mg PO BID@1200,1700 [facility] Last Admin: 06/17/20 11:43 Dose: 325 mg Documented by: Hydralazine HCl (Hydralazine 20 Mg/Ml Vial) 5 mg IV Q30M PRN PRN Reason: to maintain BP goals Labetalol HCl (Labetalol (Prefilled) 20 Mg/4 Ml) 10 - 20 mg IV Q10M PRN PRN PRN Reason: to Maintain BP Goals Levothyroxine Sodium (Levothyroxine 75 Mcg Tablet) 75 mcg PO DAILY@0600 [facility] Last Admin: 06/17/20 05:21 Dose: 75 mcg Documented by: Ondansetron HCl (Ondansetron 4 Mg/2 Ml Vial) 4 mg IV Q8H PRN PRN PRN Reason: NAUSEA/VOMITING Potassium Chloride (Potassium Ch[facility] 10 Meq Tablet) [facility] Admin: 06/17/20 09:07 Dose: 10 meq Documented by: Sodium Chloride (0.9% Saline Lock 10 Ml Syringe) 10 - 40 ml IV UD PRN PRN Reason: SALINE FLUSH Warfarin Sodium (Warfarin 3 Mg Tablet) 3 mg PO MoWeFr@1700 [facility] Last Admin: 06/16/20 17:42 Dose: 3 mg Documented by: Warfarin Sodium (Warfarin 4 Mg Tablet) 4 mg PO SuTuThSa@1700 [facility] Discharge Diet: Low fat/ Low Cholesterol Discharge Activity: Return to Normal Activity Call your doctor if you observe: - - increased weakness Home Medications: Medications to take at Discharge Atorvastatin Calcium [Lipitor] 20 mg PO QHS 08/20/13 Cyanocobalamin (Vitamin B-12) [B-12] 1,000 mcg PO DAILY 11/02/18 Potassium Chloride [Klor-Con 10] 10 meq PO DAILY 11/02/18 warfarin 3 mg tablet 3 mg PO MOWEFR 12/11/18 ferrous sulfate 325 mg (65 mg iron) tablet 325 mg PO BID tab 04/08/19 levothyroxine 75 mcg tablet 75 mcg PO DAILY 04/08/19 isosorbide mononitrate 30 mg tablet,extended release 24 hr 30 mg PO DAILY #90 tab 10/29/19 Warfarin Sodium [Coumadin] 4 mg PO SUTUTHSA 01/17/20 carvedilol 12.5 mg tablet 12.5 mg PO BID #60 tab 06/13/20 Primary Care Physician: Elmo Burdick DO [Primary Care Provider] - Within 1 Week Please Follow Up With: Abhijeet Mayberry MD When: 1-2 months Please Follow Up With: Jorge L Curtis MD - neurology When: 1-2 months Disposition: Home Minutes spent on discharge:: 32 Patient Condition:: Fair Medical Necessity - Tobacco Use Smoking Status: Former smoker Meaningful Use Info Meaningful Use Diagnoses (Choose all that apply): Ischemic CVA - CVA Therapy Assessed for PT,OT and/or ST?: Yes - Ischemic Stroke Antithrombotic order at d/c?: No Reason antithrombotic not ordered: Treatment not Indicated Dx of Atrial fib/flutter?: Yes Anticoagulant at discharge?: Yes Statins at discharge?: Yes Primary Dx Acute Ischemic CVA?: Yes IV tPA ordered during stay?: No Reason IV t-PA not ordered: Treatment not Indicated Inpatient E&M: 78326 Disch Hosp
--- NOTE | 2020-06-19 16:06 | CASEMGMT ---
MARGARET FERGUSON Discharge Follow-up Phone Call: LETY: [place] [place]: 3 Call Date: 06/19/2020 Discharge Date: 06/17/2020 Time of Call: 1555 Duration: 10 min. Admitting Diagnosis: CVA Discharge follow-up call placed to patient. Pt states she has felt tired since discharge but otherwise has been doing well. States her daughter has been assisting her and her niece has been staying the night with her until she feels more comfortable being alone. Family is assisting with making appointments, providing meals, and household tasks. Pt states she is getting her INR checked tomorrow or the next day. She is not aware of specific appointment dates and times but states her family has made calls to arrange and are awaiting calls back. Pt denied any questions regarding her medications. Pt denied any further questions or concerns regarding her discharge instructions. Gila La RN CM
== END 2020-06-17 13:40 | disposition home or self-care (01) | DRG 69 ==
LOC: ED 10:05 → PCU 11:19
PROVIDERS: Emergency Provider Emergency Medicine; PCP Student in an Organized Health Care Education/Training Program
DX: G45.9 Transient cerebral ischemic attack, unspecified (principal); I48.20 Chronic atrial fibrillation, unspecified; G81.91 Hemiplegia, unspecified affecting right dominant side; Q21.1 Atrial septal defect; I10 Essential (primary) hypertension; R29.702 NIHSS score 2; I95.1 Orthostatic hypotension; I45.10 Unspecified right bundle-branch block; I25.2 Old myocardial infarction; E03.9 Hypothyroidism, unspecified; E78.5 Hyperlipidemia, unspecified; R79.89 Other specified abnormal findings of blood chemistry; Z66 Do not resuscitate; Z95.0 Presence of cardiac pacemaker; Z79.01 Long term (current) use of anticoagulants; Z79.890 Hormone replacement therapy; Z79.899 Other long term (current) drug therapy; Z87.891 Personal history of nicotine dependence; Z86.73 Personal history of transient ischemic attack (TIA), and cerebral infarction without residual deficits
CPT/HCPCS: 36415; 70450; 70496; 70498; 71045; 80048; 80061; 84484; 85025; 85610; 85730; 92507; 92523; 92610; 93005; 93306; 94762; 97162; 97166; 97802; 99285; 99406; Q9957; Q9967; A4216; C8929

== ENCOUNTER → 2020-09-05 09:27 | Outpatient (CLI) | payer MEDICARE, OTHER, SELFPAY ==
[2020-08-22 10:03] VITALS: BMI 22.1
--- NOTE | 2020-09-05 09:30 | CDU_ITS ---
Reason For Study: Lt carotid stenosis, TIA Rt. Velocities/BP Lt. Velocities/BP Prox CCA 48.6/14.7 cm/sec. Prox CCA 64.3/14.7 cm/sec. Mid CCA 49.9/13.4 cm/sec. Mid CCA 59.1/17.3 cm/sec. Dist CCA 36.9/10.8 cm/sec. Dist CCA 53.9/13.4 cm/sec. Prox ICA 52.2/14.5 cm/sec. Prox ICA 43.4/14.7 cm/sec. Mid ICA 60.7/16.3 cm/sec. Mid ICA 61.7/20.0 cm/sec. Dist ICA 89.1/33.3 cm/sec. Dist ICA 65.6/25.2 cm/sec. Rt. ICA/CCA = 1.8. Lt. ICA/CCA = 1.1. Prox ECA 50.4/6.0 cm/sec. Prox ECA 87.8/8.2 cm/sec. Rt. Vert. 49.4/8.8 cm/sec. Lt. Vert. 36.2/15.4 cm/sec. Right Extracranial There is heterogeneous, irregular atherosclerotic plaque noted in the right common carotid artery. There is heterogeneous, irregular atherosclerotic plaque noted in the right internal carotid artery. There is homogeneous, smooth atherosclerotic plaque noted in the right external carotid artery. Antegrade flow is noted in the right vertebral artery. Left Extracranial There is heterogeneous, smooth atherosclerotic plaque noted in the left common carotid artery. There is heterogeneous, irregular atherosclerotic plaque noted in the left internal carotid artery. There is intimal thickening but no significant atherosclerotic plaque noted in the left external carotid artery. Antegrade flow is noted in the left vertebral artery. Procedure Carotid Duplex 03146. This is a Carotid Duplex examination using B-mode, color flow and specral Doppler. The exam was diagnostic. Exam performed in department. Interpretation Summary Mild (<50%) stenosis right extracranial internal carotid. Mild (<50%) stenosis left extracranial internal carotid. Flow within the vertebral arteries is antegrade bilaterally. Ordering Physician: Jorge L Curtis Performed By: Solitario Alexander RVT
== END ==
PROVIDERS: PCP Student in an Organized Health Care Education/Training Program; Referring Provider Psychiatry & Neurology Neurology; Visit Provider Psychiatry & Neurology Neurology
DX: I65.22 Occlusion and stenosis of left carotid artery (principal); Z86.73 Personal history of transient ischemic attack (TIA), and cerebral infarction without residual deficits
CPT/HCPCS: 93880

== ENCOUNTER → 2021-03-21 | Outpatient (CLI) | payer MEDICARE, OTHER, SELFPAY ==
[2021-01-18 10:47] VITALS: BMI 20.9
[2021-03-21 10:53] LABS: Prothrombin Time (Protime)PT. 21.7 SECONDS (11.7-14.9)
== END | disposition home or self-care (01) ==
LOC: LABSPEC 10:20
PROVIDERS: PCP Student in an Organized Health Care Education/Training Program; Visit Provider Student in an Organized Health Care Education/Training Program
DX: Z79.01 Long term (current) use of anticoagulants (principal); I25.2 Old myocardial infarction
CPT/HCPCS: 85610

== ENCOUNTER 2021-03-30 16:29 | Observation (INO) | payer MEDICARE, OTHER, SELFPAY ==
[2021-01-18 10:47] VITALS: BMI 20.9
[2021-03-30] VITALS (8 sets, daily range): BP systolic 79–178; BP diastolic 67–93; PULSE 67–93; RESP 16–20; TEMP 35.9–37.1; O2SAT 93–95; BMI 20.2; BMI 20.4
--- NOTE | 2021-03-30 17:02 | EKG12_ITS ---
Test Reason : GEN ILLNESS Blood Pressure : / mmHG Vent. Rate : 072 BPM Atrial Rate : 072 BPM P-R Int : 174 ms QRS Dur : 124 ms QT Int : 410 ms P-R-T Axes : 077 -67 051 degrees QTc Int : 448 ms Normal sinus rhythm Right bundle branch block Left anterior fascicular block Bifascicular block Abnormal ECG Confirmed by YOLANDA CRAIG, ZEHRA ([id number]), greeting card editor ZABRINA ALEXANDER ([id number]) on 04/03/2021 9:48:31 AM Referred By: MICHELE Confirmed By:ZEHRA GUERRERO MD
--- NOTE | 2021-03-30 17:10 | RAD_ITS ---
STUDY: X-RAY CHEST REASON FOR EXAM: Female, 85 years old. Cough. TECHNIQUE: Single AP portable view of the chest. COMPARISON: 06/16/2020. FINDINGS: The lungs are clear and hyperexpanded. There is no demonstrated pleural abnormality. Normal size heart. Stable cardiac pacemaker. Normal mediastinum and roc. Normal visualized pulmonary arteries. There is atherosclerotic calcification of the aortic arch with tortuosity. Normal visualized thoracic spine. There is degenerative osteoarthritis of the bilateral shoulders. There is no demonstrated abnormality of the visualized soft tissue structures of the upper abdomen. RAD/Chest 1 View (Portable) IMPRESSION: No acute cardiopulmonary disease or interval change. Electronically Signed: Roel Bruce DO at 17:32 EDT Tel [phone], Service support ,
[2021-03-30] MEDS: 0.9% Normal Saline 1,000 ML 150 ML IV (17:12)
--- NOTE | 2021-03-30 17:21 | EX.ED.DYSGE1 ---
HPI History of Present Illness Chief Complaint: General Illness Informant: patient Onset/Context/Timing Onset: Today Current Severity: Mild Maximum Severity: Moderate Narrative Narrative: Patient presents stating that she feels lightheaded and dizzy today. Yesterday she felt fine. Today for it she feels as if she may pass out. She denies palpitations or chest pain. No shortness of breath. Friend with her at bedside states she has had a cough with yellow sputum over the past day. She denies fever or chills. No urinary symptoms. No diarrhea. Patient did receive the Covid vaccine. She denies recent change in p.o. intake or medication adjustments. [facility] Medical History (Updated 03/30/21 @ 19:[address] Franci Pan MD) Abnormal stress test Acute GI bleeding Atrial fibrillation with RVR Back pain Chronic antral gastritis CVA (cerebral vascular accident) Elevated blood pressure reading in office with white coat syndrome, without diagnosis of hypertension Elevated troponin (06/16/20) Essential (primary) hypertension Gastric polyp History of breast cancer History of non-ST elevation myocardial infarction (NSTEMI) (08/23/18) History of TIA (transient ischemic attack) (06/16/20) History of vasculitis Hypercoagulable state Hyperlipidemia Hypokalemia Hypothyroidism Lower gastrointestinal bleeding Multiple premature ventricular complexes Non-ischemic cardiomyopathy Orthostatic hypotension Orthostatic hypotension Osteoarthritis of spine Paroxysmal atrial fibrillation Patent foramen ovale Pre-syncope Right bundle branch block (RBBB) Sick sinus syndrome Stenosis of left carotid artery Syncope Vasculitis Home Medications atorvastatin 20 mg PO QHS 08/20/13 [History Last Taken 06/15/20 22:00] cyanocobalamin (vitamin B-12) 1,000 mcg PO DAILY 11/02/18 [History Last Taken 06/15/20 17:00] potassium chloride 10 meq PO DAILY 11/02/18 [History Last Taken 06/16/20 08:00] ferrous sulfate 325 mg (65 mg iron) tablet 325 mg PO BID tab 04/08/19 [History Last Taken 06/16/20 08:00] levothyroxine 75 mcg tablet 75 mcg PO DAILY 04/08/19 [History Last Taken 06/16/20 04:00] carvedilol 6.25 mg tablet 6.25 mg PO BID 02/16/21 [History Last Taken Unknown] isosorbide mononitrate 30 mg PO DAILY 03/30/21 [History Last Taken Unknown] warfarin 4 mg PO SUMOWEFRSA 03/30/21 [History Last Taken Unknown] warfarin 5 mg PO TUTH 03/30/21 [History Last Taken Unknown] Allergy/AdvReac Type Severity Reaction Status Date / Time omeprazole Allergy Severe Swelling Verified 11/27/20 08:52 lansoprazole Allergy Intermediate edema Verified 01/18/21 11:12 levofloxacin [From Levaquin] Allergy Angioedema Verified 11/27/20 08:52 lisinopril Allergy Swelling Verified 11/27/20 08:52 Penicillins Allergy Itching Verified 11/27/20 08:52 Sulfa (Sulfonamide Allergy Angioedema Verified 11/27/20 08:52 Antibiotics) amlodipine AdvReac Severe severe Verified 11/27/20 08:52 hypotension Family History Father Myocardial infarction Sister CAD (coronary artery disease) Stents Brother CVA (cerebral vascular accident) Surgical History H/O cardiac catheterization (08/25/18) History of colonoscopy (08/2018) History of esophagogastroduodenoscopy (EGD) (08/2018) History of open reduction and internal fixation (ORIF) procedure History of permanent cardiac 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) History of right mastectomy Social History Smoking Status: Former smoker Tobacco: How many years used: 20 how long ago did patient quit smokin years ago second hand exposure: No alcohol intake: current alcohol intake frequency: holidays/special occasions only substance use type: does not use caffeine: No ROS ROS ED Constitutional Constitutional ED: Denies chills or fever(s) Eyes Eyes: Denies change in vision ENT ENT ED: Denies sore throat Cardiovascular Cardiovascular: Denies chest pain Respiratory/Chest Respiratory/Chest: Reports cough and sputum; Denies dyspnea Gastrointestinal Gastrointestinal: Denies abdominal pain, diarrhea, nausea or vomiting Genitourinary Genitourinary ED: Denies dysuria Musculoskeletal Musculoskeletal: Denies back pain Integumentary Denies rash Neurologic Neurologic: Reports weakness; Denies headache(s) Psychiatric Psychiatric: Denies anxiety or depression Allergic/Immunologic Allergic/Immunologic ED: Denies urticaria EXAM Physical Exam Const Vital Signs: 03/30/21 16:30 03/30/21 17:00 03/30/21 17:08 Temperature 98.7 F Temperature Source Temporal Pulse Rate 82 75 Respiratory Rate 16 18 Respiratory Effort Normal Non-Labored Respiratory Pattern Normal Blood Pressure 79/67 L 143/81 H Blood Pressure Mean 71 101 Pulse Ox 93 93 Oxygen Delivery Method Room Air Room Air 03/30/21 19:08 Temperature Temperature Source Pulse Rate 71 Respiratory Rate 20 H Respiratory Effort Respiratory Pattern Blood Pressure 162/87 H Blood Pressure Mean 112 Pulse Ox 94 Oxygen Delivery Method Room Air Positive well nourished and well developed General Appearance ED: well developed HEENT Reports normocephalic and head/scalp atraumatic Eyes PERRL and EOMs intact bilaterally Neck supple Chest Wall inspection of chest normal and palpation of chest normal Resp normal respiratory effort and clear to auscultation bilaterally Cardio regular rate and regular rhythm GI normal to inspection, nondistended, normoactive bowel sounds Palpation: soft Extremity normal to inspection Neuro oriented x3 and no sensory deficits noted Sensorium / Orientation: alert Motor Exam: strength 5/5 throughout Psych mental status grossly normal Skin no rashes or lesions noted MDM MDM MDM Narrative Medical decision making narrative: Labs, EKG, chest x-ray obtained. Patient was given IV fluids at 150/h. Lab Data Attestation: I reviewed the patient's lab results. Labs: Laboratory Results - last 24 hr 03/30/21 03/30/21 16:45 16:45 WBC 5.1 RBC 4.22 Hgb 12.2 Hct 38.4 MCV 91.0 MCH 28.9 MCHC 31.8 L RDW Std Deviation 44.7 H RDW Coeff of Duc 13.2 Plt Count 253 MPV 9.6 Immature Gran % (Auto) 0.200 Neut % (Auto) 55.7 Lymph % (Auto) 32.4 [place] % (Auto) 7.5 Eos % (Auto) 3.6 Baso % (Auto) 0.6 Absolute Neuts (auto) 2.8 Absolute Lymphs (auto) 1.64 Nucleated RBC % 0 Sodium 142 Potassium 4.3 Chloride 110 H Carbon Dioxide 32.0 Anion Gap 0 L BUN 15 Creatinine 0.71 Estim Creat Clear Calc 37.99 Est GFR (MDRD) Af Amer 101 Est GFR (MDRD) Non-Af 84 BUN/Creatinine Ratio 21.2 H Glucose 104 Calcium 8.8 Troponin I High Sens 61.1 H* Radiography Chest X-Ray - ED: 1 View, Read by ED Physician and Chronic Changes Diagnostic Testing: Radiology Impression Chest X-Ray 03/30/21 17:10 IMPRESSION: No acute cardiopulmonary disease or interval change. Electronically Signed: Roel SuggsonDO at 17:32 EDT Tel [phone], Service support , EKG Initial EKG: Attestation: I personally reviewed and interpreted this EKG as follows: Interpretation: Sinus Rhythm (Sinus at 72 with a bifascicular block. This is unchanged when compared to prior study of May 2020.) Treatment and Re-Evaluation Comments:: On repeat evaluation patient is resting comfortably has no complaints. She states she feels ready to go home. Test results were discussed with her. Her troponin is elevated. She continues to deny any chest pain or shortness of breath. Patient be admitted for cycling of cardiac enzymes. Second troponin will be drawn now and INR will be added as this was initially missed. I will speak with the hospitalist. Discharge Plan Dx/Rx/DC Orders Clinical Impression: Non-ST elevation CA (NSTEMI) Disposition Disposition: Acute Care Hospital [facility]
[2021-03-30 17:50] LABS: Absolute Lymphocyte Count 1.64 X10^3/uL (0.83-4.51); Absolute Neutrophil Count 2.8 X10^3/uL (2.0-7.7); Basophil# 0.03 X10^3/uL; Basophil% 0.6 % (0-1); Eosinophil# 0.18 X10^3/uL; Eosinophils% 3.6 % (0-5); Hematocrit 38.4 % (37-47); Hemoglobin 12.2 g/dL (12.0-15.0); Lymphocyte # 1.64 X10^3/ul (0.83-4.51); Lymphocyte % 32.4 % (19-41); Mean Corp Hgb Conc 31.8 g/dL (32-36); Mean Corpuscular Hgb 28.9 pg (27.0-32.0); Mean Platelet Vol. 9.6 fl (6.2-12.0); Monocyte# 0.38 X10^3/uL; Monocyte% 7.5 % (0-10); NRBC Flagged by Analyzer 0 % (0-5); Neutrophil # 2.82 X10^3/uL (2.7-7.7); Neutrophil % 55.7 % (47-70); Platelet Count 253 K/mm3 (150-450); RBC Distribution Width CV 13.2 % (11.6-14.6); RBC Distribution Width SD 44.7 fl (35.1-43.9); Red Blood Count 4.22 M/mm3 (4.2-5.4); White Blood Count 5.1 K/mm3 (4.4-11.0)
[2021-03-30 18:02] LABS: Anion Gap 0 (5-15); BUN 15 mg/dL (7-18); BUN/Creat Ratio 21.2 RATIO (10-20); Calcium,Total 8.8 mg/dL (8.5-10.1); Chloride 110 mmol/L (98-107); Creatinine, Serum 0.71 mg/dL (0.55-1.02); EST Glomerular Filtration Rate 84 mL/min (>60); Est Glom Filt Rate - Afr Amer 101 mL/min (>60); Estimated Creatinine Clearance 37.99 ml/min; Glucose 104 mg/dL (74-106); Potassium 4.3 mmol/L (3.5-5.1); Sodium Level 142 mmol/L (136-145); Troponin-I HS 61.1 pg/mL (3.0-53.7)
[2021-03-30 19:41] LABS: Bacteria 0 SEEN /hpf (None Seen); Mucous, Urine 0 SEEN /hpf (<or=2+); Red Blood Cells-Urine 0 SEEN /hpf (0-5); Squamous Epithelial Cells - UA 0 SEEN /hpf (5-10); White Blood Cells 0 SEEN /hpf (0-5)
--- NOTE | 2021-03-30 19:59 | HP.PCM.HOS_ITS ---
HPI - General General Date of Admission: 03/30/21 HPI Narrative LUCRETIA LEAL, is a 85 F with multiple comorbidities as listed above came to ER for dizziness feeling of near syncope, generalized weakness. Patient states he does not have aches and pain and generally walks on walker. She has history of chronic dizziness on and off but this time it started today. She also complains of cough with yellow sputum for last 2 days. No fever or chills, chest pain/pressure or shortness of breath. She has remote history of smoking quit 30 years ago. Denies burning micturition, new lower urinary tract symptoms. Patient had Covid vaccine. She has history of nonischemic cardiomyopathy, sick sinus syndrome, PAF on Coumadin, TIA/stroke, Bilateral carotid stenosis and follows neurologist and regulatory compliance manager as an outpatient. No recent change in medication. Mild bilateral lower leg edema. In ED, initial triage blood pressure was low but subsequently blood pressure was elevated therefore probably triage blood pressure may be falsely low. [facility] Medical History Abnormal stress test Acute GI bleeding Atrial fibrillation with RVR Back pain Chronic antral gastritis CVA (cerebral vascular accident) Elevated blood pressure reading in office with white coat syndrome, without diagnosis of hypertension Elevated troponin (06/16/20) Essential (primary) hypertension Gastric polyp History of breast cancer History of non-ST elevation myocardial infarction (NSTEMI) (08/23/18) History of TIA (transient ischemic attack) (06/16/20) History of vasculitis Hypercoagulable state Hyperlipidemia Hypokalemia Hypothyroidism Lower gastrointestinal bleeding Multiple premature ventricular complexes Non-ischemic cardiomyopathy Orthostatic hypotension Orthostatic hypotension Osteoarthritis of spine Paroxysmal atrial fibrillation Patent foramen ovale Pre-syncope Right bundle branch block (RBBB) Sick sinus syndrome Stenosis of left carotid artery Syncope Vasculitis Home Medications atorvastatin 20 mg PO QHS 08/20/13 [History Last Taken 03/29/21] cyanocobalamin (vitamin B-12) 1,000 mcg PO DAILY 11/02/18 [History Last Taken 03/30/21] potassium chloride 10 meq PO DAILY 11/02/18 [History Last Taken 03/30/21] ferrous sulfate 325 mg (65 mg iron) tablet 325 mg PO BID tab 04/08/19 [History Last Taken 03/30/21] levothyroxine 75 mcg tablet 75 mcg PO DAILY 04/08/19 [History Last Taken 03/30/21] carvedilol 6.25 mg tablet 6.25 mg PO BID 02/16/21 [History Last Taken 03/30/21] isosorbide mononitrate 30 mg PO DAILY 03/30/21 [History Last Taken 03/30/21] warfarin 4 mg PO SUMOWEFRSA 03/30/21 [History Last Taken 03/29/21] warfarin 5 mg PO TUTH 03/30/21 [History Last Taken 03/29/21] Allergy/AdvReac Type Severity Reaction Status Date / Time omeprazole Allergy Severe Swelling Verified 11/27/20 08:52 lansoprazole Allergy Intermediate edema Verified 01/18/21 11:12 levofloxacin [From Levaquin] Allergy Angioedema Verified 11/27/20 08:52 lisinopril Allergy Swelling Verified 11/27/20 08:52 Penicillins Allergy Itching Verified 11/27/20 08:52 Sulfa (Sulfonamide Allergy Angioedema Verified 11/27/20 08:52 Antibiotics) amlodipine AdvReac Severe severe Verified 11/27/20 08:52 hypotension Family History Father Myocardial infarction Sister CAD (coronary artery disease) Stents Brother CVA (cerebral vascular accident) Surgical History H/O cardiac catheterization (08/25/18) History of colonoscopy (08/2018) History of esophagogastroduodenoscopy (EGD) (08/2018) History of open reduction and internal fixation (ORIF) procedure History of permanent cardiac 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) History of right mastectomy Social History Smoking Status: Former smoker Tobacco: How many years used: 20 how long ago did patient quit smokin years ago second hand exposure: No alcohol intake: current alcohol intake frequency: holidays/special occasions only substance use type: does not use caffeine: No ROS ROS Narrative Constitutional: Reports fatigue and weakness HEENT: Reports systems reviewed and no addt'l complaints, except as documented Respiratory/Chest: Denies chest pain, shortness of breath at rest or with exertion Gastrointestinal: No nausea. Denies coffee ground emesis, hematemesis or vomiting Genitourinary: Denies burning urination or new urinary tract symptoms Musculoskeletal: On walker. Denies muscle aches and pain or joint pain. Neurologic: Denies seizure-like activity skin: No ulcer. No rash Endocrinology: Reports systems reviewed and no addt'l complaints, except as docu mented Hematologic/Lymphatic: Reports systems reviewed and no addt'l complaints, except as documented Rest 12 ROS are negative except as mentioned in HPI Vital Signs Vital Signs Vital Signs: 03/30/21 16:30 03/30/21 17:00 03/30/21 17:08 Temperature 98.7 F Temperature Source Temporal Pulse Rate 82 75 Respiratory Rate 16 18 Respiratory Effort Normal Non-Labored Respiratory Pattern Normal Blood Pressure 79/67 L 143/81 H Blood Pressure Mean 71 101 Pulse Ox 93 93 Oxygen Delivery Method Room Air Room Air 03/30/21 19:08 03/30/21 19:49 Temperature 96.7 F L Temperature Source Temporal Pulse Rate 71 82 Respiratory Rate 20 H 20 H Respiratory Effort Respiratory Pattern Blood Pressure 162/87 H 172/78 H Blood Pressure Mean 112 109 Pulse Ox 94 95 Oxygen Delivery Method Room Air Room Air Weight Weight: 129 lb Body Mass Index (BMI) 20.2 Physical Exam Narrative General: Alert, Oriented x3, Cooperative HEENT: Atraumatic, PERRLA, EOMI, Normocephalic Oral: Oral mucosa dry. No Gingival or Mucosal Lesions/ Ulcerations Neck: Supple, No JVD, Negative Carotid Bruits Lungs: Air entry diminished in bilateral lung bases. No crepitation/rhonchi Cardiovascular: Left subclavicular pacemaker. Sinus rhythm, normal S1, Normal S2, No murmurs Abdomen: Bowel Sounds Present, Soft, Non Tender, Non-Distended : No renal angle tenderness. No suprapubic tenderness. Extremities: Bilateral ankle edema; right more than left, Capillary Refill Less than 3 Seconds Skin: No rashes, No breakdown Musculoskeletal: No Tenderness to Palpation of Joints or Extremities Neurological: Cranial nerves II-XII grossly intact, DTR 2+/4 and Symmetrical, Neuro grossly intact Psych/Mental Status: Normal Affect, Appropriate. Results Lab / Micro Data Result Diagrams: 03/30/21 16:45 03/30/21 16:45 Labs: Laboratory Results - last 24 hr 03/30/21 16:45: WBC 5.1, RBC 4.22, Hgb 12.2, Hct 38.4, MCV 91.0, MCH 28.9, MCHC 31.8 L, RDW Std Deviation 44.7 H, RDW Coeff of Duc 13.2, Plt Count 253, MPV 9.6, Immature Gran % (Auto) 0.200, Neut % (Auto) 55.7, Lymph % (Auto) 32.4, [place] % (Auto) 7.5, Eos % (Auto) 3.6, Baso % (Auto) 0.6, Absolute Neuts (auto) 2.8, Absolute Lymphs (auto) 1.64, Nucleated RBC % 0 03/30/21 16:45: Sodium 142, Potassium 4.3, Chloride 110 H, Carbon Dioxide 32.0, Anion Gap 0 L, BUN 15, Creatinine 0.71, Estim Creat Clear Calc 37.99, Est GFR (MDRD) Af Amer 101, Est GFR (MDRD) Non-Af 84, BUN/Creatinine Ratio 21.2 H, Gl ucose 104, Calcium 8.8, Troponin I High Sens 61.1 H* Radiology Impression Chest X-Ray 03/30/21 17:10 IMPRESSION: No acute cardiopulmonary disease or interval change. Electronically Signed: Roel Bruce DO at 17:32 EDT Tel [phone], Service support , Assessment & Plan Assessment/Plan (1) Near syncope: PLAN: This is a 85-year-old female is being admitted for evaluation of near syncope. 1. Near syncope, dizziness, exact etiology unclear: Patient is getting PCU. Orthostatic blood pressure. First troponin slightly elevated. Cycle troponins. Recent 2D echo in 05/2020 shows EF 45%, stage I diastolic dysfunction, PFO. Recent carotid Doppler in August 2020 reported mild less than 50% in both MONIQUE and LICA. Twelve-lead EKG individually reviewed and shows NSR, bifascicular RBBB plus LAFB at 72 beats per. Previous EKG of May 2020 shows atrial paced rhythm, PVCs with bifascicular block. No significant change in EKG. Possible acute bronchitis: Chest x-ray does not show infiltrate, lungs are clear and hyperexpanded. COVID-19 rapid ordered. I do not think patient needs antibiotic, might be viral. 2. Proximal A. fib on Coumadin and hypertension: Blood pressure is elevated. Home medication resumed PT/INR is 2. Continue home dose of warfarin. 3. 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 4. Limited functional capacity: PT and OT. Patient is on walker. 5. VT prophylaxis: On Coumadin. Living will/advanced directive/end of life care: Patient does have living will or advanced directive. After discussion of benefits/risks procedures involved with full code, DNR CC arrest and DNR CC, the patient opted for DNR-CC Arrest with no intubation Patient does not want artificial life support including intubation, tube feed, ventilator and/chest compression, central venous catheter, vasopressor and DC shock if needed Total time spent in [id number] encounter in discussion of advanced directive 16 minutes. Charges/Coding Visit Charges OBSV E&M: 71143 Initial observation care L3 Procedures Hospitalists Procedures: 51625 Advncd Care Plan 30 Min
[2021-03-30 20:02] LABS: Color, Urine Yellow (Yellow); Glucose, Dipstick Normal (Normal); Ketone-Dipstick Negative (Negative); Leukocyte Esterase-Dipstick Negative /ul (Negative); Nitrite-Dipstick Negative (Negative); Occult Blood-Urine Negative /ul (Negative); Protein-Dipstick 15 mg/dl (Negative); Specific Gravity, Urine 1.015 (1.002-1.030); Urine Bilirubin Dipstick Negative (Negative); Urine Clarity Clear (Clear); Urine Urobilinogen Normal (Normal); Urine pH 6.5 (5.0 - 8.0)
[2021-03-30 20:28] LABS: Magnesium 2.1 mg/dL (1.6-2.6)
[2021-03-30] MEDS: 0.9% Normal Saline 1,000 ML 75 ML IV (21:12)
[2021-03-30] MEDS: Carvedilol 6.25 MG Tablet PO (23:22)
[2021-03-30] MEDS: Atorvastatin Calcium 20 MG Tablet PO (23:22)
[2021-03-30 23:36] LABS: Troponin-I HS 64.8 pg/mL (3.0-53.7)
[2021-03-31] VITALS (7 sets, daily range): BP systolic 104–182; BP diastolic 64–106; PULSE 63–90; RESP 16–18; TEMP 36.1–36.8; O2SAT 93–95
[2021-03-31] MEDS: Levothyroxine 75 MCG Tablet PO (05:13)
[2021-03-31] MEDS: Lactated Ringers 1,000 ML 999 ML IV (05:52)
[2021-03-31] MEDS: Lactated Ringers 1,000 ML 100 ML IV (06:53)
[2021-03-31 08:26] LABS: International Normalized Ratio 1.8; Prothrombin Time (Protime)PT. 20.3 SECONDS (11.7-14.9)
[2021-03-31 08:41] LABS: Thyroid Stim Hormone (TSH) 1.45 uIU/mL (0.358-3.74)
--- NOTE | 2021-03-31 09:03 | ECHOD_ITS ---
Reason For Study: near syncope Procedure This was a 2D Doppler, Color Flow transthoracic echocardiogram. The study was technically difficult. Exam performed portable in patient room. Left Ventricle Normal LV size. Segmental dysfunction with preserved ejection fraction (see wall motion). The estimated ejection fraction is 55 %. Paced septal motion. Diastolic function is indeterminate. Posterior-Basal: Hypokinetic. Infero-Basal: Hypokinetic. Right Ventricle Normal RV size. ICD or pacer leads identified within the right ventricle. Normal systolic function. Atria Normal left atrium. Normal right atrium. ICD or pacer leads identified within the right atrium. No doppler evidence for ASD. Mitral Valve There is mild to moderate mitral annular calcification. Extension of the mitral annular calcification onto the base of the posterior mitral valve leaflet. Mild focal mitral valve calcification of the anterior leaflet. Trivial mitral valve insufficiency. Tricuspid Valve Normal tricuspid valve. Trivial tricuspid valve insufficiency. Unable to estimate RV systolic pressure/pulmonary artery pressure due to technically difficult study. Aortic Valve The aortic valve is not well visualized. Pulmonic Valve The pulmonic valve is not well visualized. Great Vessels The aortic root is not well visualized. Pericardium/Pleural No pericardial effusion. MMode/2D Measurements & Calculations LVIDd: 4.5 cm IVSd: 1.2 cm LAV(MOD-bp): 48.3 ml LVIDs: 2.9 cm LVPWd: 1.1 cm LAV(MOD-bp) Indexed: 28.7 ml/m2 RVDd: 3.1 cm FS: 34.6 % LAV(MOD-sp2): 45.9 ml LAV(MOD-sp4): 49.3 ml LA dimension(2D): 3.9 cm LA A4 area: 17.3 cm2 RA A4 area: 10.6 cm2 Time Measurements MV dec time: 0.44 sec Doppler Measurements & Calculations MV E max sanjiv: 53.7 cm/sec Lat Peak E' Sanjiv: 4.1 cm/sec Med Peak E' Sanjiv: 4.3 cm/sec MV A max sanjiv: 77.4 cm/sec E/E' lat: 13.2 E/E' med: 12.4 MV E/A: 0.69 Ao V2 max: 148.7 cm/sec LV V1 max: 96.5 cm/sec PA V2 max: 61.1 cm/sec Ao max P.9 mmHg LV V1 max P.7 mmHg Ao V2 mean: 113.8 cm/sec LV V1 mean P.1 mmHg Ao mean P.5 mmHg LV V1 mean: 68.8 cm/sec Ao V2 VTI: 30.6 cm LV V1 VTI: 17.7 cm ECHO/Echo Complete Interpretation Summary The study was technically difficult. Segmental dysfunction with preserved ejection fraction (see wall motion). The estimated ejection fraction is 55 %. Paced septal motion. There is mild to moderate mitral annular calcification. Extension of the mitral annular calcification onto the base of the posterior mi tral valve leaflet. Mild focal mitral valve calcification of the anterior leaflet. Trivial mitral valve insufficiency. Trivial tricuspid valve insufficiency. Unable to estimate RV systolic pressure/pulmonary artery pressure due to techni jaida difficult study. Diastolic function is indeterminate. ICD or pacer leads identified within the right atrium ICD or pacer leads identified within the right ventricle. Ordering Physician: Leila Gage Referring Physician: Elmo Burdick Performed By: Che Thomson, HANH, RVT
[2021-03-31] MEDS: Cyanocobalamin 500 MCG Tablet 1000 MCG PO (09:36)
[2021-03-31] MEDS: Isosorbide Mononitrate 30 MG Tablet PO (09:37)
[2021-03-31] MEDS: Ferrous Sulfate 325 MG Tablet PO (09:37)
[2021-03-31] MEDS: Carvedilol 6.25 MG Tablet PO (09:37)
[2021-03-31 09:48] LABS: Phosphorus 2.7 mg/dL (2.5-4.9)
--- NOTE | 2021-03-31 13:12 | PCM.DC ---
Discharge Instructions Diet Discharge Diet: Low fat / Low cholesterol Activity Discharge Activity: Return to Normal Activity Dressing / Incision Call your doctor if you observe: Shortness of breath, Dizziness, Fainting spells and Chest pain Follow Up Care Test Results: Test results from this visit will be discussed in further detail at your follow-up appointment, if applicable. Discharge Plan Admission Admit Date/Time: 03/30/21 19:38 Primary Reason for Your Visit: Near syncope Attending Provider: Nick Quiñonez Primary Care Provider: Elmo Burdick Instructions Additional Instructions / Restrictions: Continue blood pressure monitoring at home, twice daily. Report blood pressure readings to PCP and cardiology at follow-up. Discharge Orders/Prescriptions Prescriptions: New carvedilol 12.5 mg tablet 12.5 mg PO BID Qty: 60 RF: 0 Continued levothyroxine 75 mcg tablet 75 mcg PO DAILY RF: 0 atorvastatin 20 MG tablet 20 mg PO QHS RF: 0 ferrous sulfate 325 mg (65 mg iron) tablet 325 mg PO BID RF: 0 cyanocobalamin (vitamin B-12) 1,000 MCG tablet 1,000 mcg PO DAILY RF: 0 potassium chloride 10 MEQ tablet extended release 10 meq PO DAILY RF: 0 warfarin 5 mg Tablet 5 mg PO TUTH RF: 0 warfarin 4 mg Tablet 4 mg PO SUMOWEFRSA RF: 0 Changed isosorbide mononitrate 30 mg tablet extended release 24 hr 60 mg PO DAILY Qty: 0 RF: 0 Discontinued carvedilol 6.25 mg tablet 6.25 mg PO BID RF: 0 Referrals / Follow Up: Elmo Burdick DO [Primary Care Provider] - In 1 Week Mira Temple NP, PELLETISING EXTRUDER OPERATOR-C [Nurse Practitioner] - See Referral Note (As scheduled, 05/28/21) Reina Suero, PA [PHYSICIAN REMOTE SENSING ENGINEER] - Within 2 Weeks Disposition Disposition (needs filled in before D/C Order can be placed): Home, Self Care
--- NOTE | 2021-03-31 13:21 | DS.PCM_ITS ---
Documented by User: Leila Gage NP, [employer]IVER-C 03/31/21 14:00 Providers Date of Admission: 03/30/21 Date of Discharge: 03/31/21 Primary Care Physician: Dr. Elmo Burdick DO Reason For Visit: NEAR SYNCOPE Diagnosis Discharge Diagnosis (1) Near syncope: Status: Acute Code(s): R55 - Syncope and collapse Medications at Discharge Home Medications atorvastatin 20 mg PO QHS 08/20/13 cyanocobalamin (vitamin B-12) 1,000 mcg PO DAILY 11/02/18 potassium chloride 10 meq PO DAILY 11/02/18 ferrous sulfate 325 mg (65 mg iron) tablet 325 mg PO BID tab 04/08/19 levothyroxine 75 mcg tablet 75 mcg PO DAILY 04/08/19 warfarin 4 mg PO SUMOWEFRSA 03/30/21 warfarin 5 mg PO TUTH 03/30/21 carvedilol 12.5 mg PO BID #60 tab 03/31/21 isosorbide mononitrate 30 mg PO DAILY #0 tab 03/31/21 Hospital Course Operations None Procedures 2-D Echocardiogram Summary of Care Provided Minutes Spent on Discharge: 35 Hospital Course: Patient is a 85-year-old female admitted 03/30/2021 due to episode of near syncope. 1. Near syncope, dizziness-cardiac enzymes indeterminate, did not significantly increase. Denies chest pain, shortness of breath. UA, chest x-ray unremarkable. Lab work unremarkable. Echocardiogram completed, report pending and will be reviewed prior to discharge. Patient denies further symptoms of dizziness. Neuro exam intact. Patient irritable and requesting discharge home. Follow-up with PCP and cardiology at discharge. 2. Hypertension-blood pressure elevated during admission. Increase carvedilol to 12.5 mg twice daily and isosorbide to 60 mg daily. Patient's blood pressure during cardiology office visit in January noted borderline low blood pressure. Given new increase in medication, discussed twice daily blood pressure monitoring, hold parameters and further follow-up with PCP/cardiology for blood pressure monitoring and adjustments. 3. History of TIA/CVA-on statin, Coumadin. Continue outpatient follow-up with neurology. 4. Nonischemic cardiomyopathy/sick sinus syndrome status post pacemaker placement-recent pacemaker check 03/30/2021. Continue home medication regimen. Continue outpatient follow-up with cardiology. 5. Paroxysmal atrial fibrillation on anticoagulation with Coumadin-INR in admission to, repeat 1.8. Continue home Coumadin regimen. Will need repeat INR as outpatient to maintain therapeutic level. 6. Chronic left carotid artery stenosis-continue outpatient monitoring. Continue statin 7. Hypothyroidism-continue Synthroid regimen. Patient seen and examined prior to discharge. Physical assessment as noted below. Patient is stable for discharge with follow up recommendations as noted above. This patient was seen by PEREZ Terry under the supervision of Dr. Quiñonez. Physical Exam Const alert, oriented x3 and no apparent distress Orientation / Consciousness: awake, oriented to person, oriented to place and oriented to time HEENT normocephalic and moist oral mucous membranes Eyes PERRL, EOMs intact bilaterally and conjunctivae normal Neck no lymphadenopathy Resp normal respiratory effort and clear to auscultation bilaterally Cardio regular rate, regular rhythm and no murmurs Peripheral Pulses: pulses 2+ throughout GI normal to inspection, nondistended, normoactive bowel sounds, non-tender and non-distended Extremity normal to inspection Skin no rashes or lesions noted Lesions: no lesions Rashes: no rashes Trauma: no lacerations or abrasions Neuro CN's II-XII intact bilaterally, no focal motor deficits, no sensory deficits noted and deep tendon reflexes 2+ bilaterally Psych mental status grossly normal and affect normal Weight / BMI Weight Weight: 130 lb 6.4 oz Body Mass Index (BMI) 20.4 ABG / Lab / Microbiology Data Result Diagrams: 03/30/21 16:45 03/30/21 16:45 Laboratory: Laboratory Results - last 24 hr 03/30/21 16:45: WBC 5.1, RBC 4.22, Hgb 12.2, Hct 38.4, MCV 91.0, MCH 28.9, MCHC 31.8 L, RDW Std Deviation 44.7 H, RDW Coeff of Duc 13.2, Plt Count 253, MPV 9.6, Immature Gran % (Auto) 0.200, Neut % (Auto) 55.7, Lymph % (Auto) 32.4, [place] % (Auto) 7.5, Eos % (Auto) 3.6, Baso % (Auto) 0.6, Absolute Neuts (auto) 2.8, Absolute Lymphs (auto) 1.64, Nucleated RBC % 0 03/30/21 16:45: Sodium 142, Potassium 4.3, Chloride 110 H, Carbon Dioxide 32.0, Anion Gap 0 L, BUN 15, Creatinine 0.71, Estim Creat Clear Calc 37.99, Est GFR (MDRD) Af Amer 101, Est GFR (MDRD) Non-Af 84, BUN/Creatinine Ratio 21.2 H, Glucose 104, Calcium 8.8, Troponin I High Sens 61.1 H* 03/30/21 19:30: Urine Color Yellow, Urine Clarity Clear, Urine pH 6.5, Ur Specific [place] 1.015, Urine Protein 15 H, Urine Glucose (UA) Normal, Urine Ketones Negative, Urine Occult Blood Negative, Urine Nitrite Negative, Urine Bilirubin Negative, Urine Urobilinogen Normal, Ur Leukocyte Esterase Negative, Urine RBC 0 SEEN, Urine WBC 0 SEEN, Ur Squamous Epith Cells 0 SEEN, Urine Bacteria 0 SEEN, Urine Mucus 0 SEEN 03/30/21 19:30: PT 22.0 H, INR 2.0 03/30/21 19:30: Magnesium 2.1, Troponin I High Sens 62.0 H* 03/30/21 22:50: Troponin I High Sens 64.8 H* 03/31/21 07:20: TSH 1.45 03/31/21 07:20: PT 20.3 H, INR 1.8 03/31/21 07:20: Phosphorus 2.7 Microbiology: Microbiology 03/30/21 19:50 Mucosa - Nose SARS-CoV-2 Antigen (Rapid) - Final Radiography Diagnostic Testing: Radiology Impression Chest X-Ray 03/30/21 17:10 IMPRESSION: No acute cardiopulmonary disease or interval change. Electronically Signed: Roel Bruce DO at 17:32 EDT Tel [phone], Service support , D/C Instructions Discharge Diet: Low fat / Low cholesterol Call your doctor if you observe: Shortness of breath, Dizziness, Fainting spells and Chest pain Meaningful Use Info Meaningful Use Diagnoses (Choose all that apply): None applicable Discharge Plan Admission Admit Date/Time: 03/30/21 19:38 Primary Reason for Your Visit: Near syncope Attending Provider: Nick Quiñonez Primary Care Provider: Elmo Burdick Instructions Additional Instructions / Restrictions: Continue blood pressure monitoring at home, twice daily. Report blood pressure readings to PCP and cardiology at follow-up. Discharge Orders/Prescriptions Prescriptions: New carvedilol 12.5 mg tablet 12.5 mg PO BID Qty: 60 RF: 0 Continued levothyroxine 75 mcg tablet 75 mcg PO DAILY RF: 0 atorvastatin 20 MG tablet 20 mg PO QHS RF: 0 ferrous sulfate 325 mg (65 mg iron) tablet 325 mg PO BID RF: 0 cyanocobalamin (vitamin B-12) 1,000 MCG tablet 1,000 mcg PO DAILY RF: 0 potassium chloride 10 MEQ tablet extended release 10 meq PO DAILY RF: 0 warfarin 5 mg Tablet 5 mg PO TUTH RF: 0 warfarin 4 mg Tablet 4 mg PO SUMOWEFRSA RF: 0 isosorbide mononitrate 30 mg tablet extended release 24 hr 30 mg PO DAILY Qty: 0 RF: 0 Discontinued carvedilol 6.25 mg tablet 6.25 mg PO BID RF: 0 Referrals / Follow Up: Elmo Burdick DO [Primary Care Provider] - In 1 Week Mira Temple NP, [employer] DRIVER-C [Nurse Practitioner] - See Referral Note (As scheduled, 05/28/21) Reina Suero, PA [PHYSICIAN UNIX ENGINEER] - Within 2 Weeks Disposition Disposition (needs filled in before D/C Order can be placed): Home, Self Care Documented by User: Dr. Nick Quiñonez MD 03/31/21 14:59 Providers Date of Admission: 03/30/21 Reason For Visit: NEAR SYNCOPE Medications at Discharge Home Medications atorvastatin 20 mg PO QHS 08/20/13 cyanocobalamin (vitamin B-12) 1,000 mcg PO DAILY 11/02/18 potassium chloride 10 meq PO DAILY 11/02/18 ferrous sulfate 325 mg (65 mg iron) tablet 325 mg PO BID tab 04/08/19 levothyroxine 75 mcg tablet 75 mcg PO DAILY 04/08/19 warfarin 4 mg PO SUMOWEFRSA 03/30/21 warfarin 5 mg PO TUTH 03/30/21 carvedilol 12.5 mg PO BID #60 tab 03/31/21 isosorbide mononitrate 30 mg PO DAILY #0 tab 03/31/21 Hospital Course Operations None Summary of Care Provided Hospital Course: This patient was seen in conjunction with SONALI Terry . I have independently interviewed and examined the patient and reviewed pertinent historical, laboratory, and other data. Please refer to PEREZ Terry note for details of this patient's presentation, findings, and recommendations. I have reviewed PEREZ Terry note and concur with documented findings. In brief, patient is a 85-year-old lady admitted with progressive generalized weakness admitted to monitored bed for subsequent management Hospital course: ?As documented above ABG / Lab / Microbiology Data Result Diagrams: 03/30/21 16:45 03/30/21 16:45 Discharge Plan Admission Admit Date/Time: 03/30/21 19:38 Primary Reason for Your Visit: Near syncope Attending Provider: Nick Quiñonez Primary Care Provider: Elmo Burdick Instructions Additional Instructions / Restrictions: Continue blood pressure monitoring at home, twice daily. Report blood pressure readings to PCP and cardiology at follow-up. Discharge Orders/Prescriptions Prescriptions: New carvedilol 12.5 mg tablet 12.5 mg PO BID Qty: 60 RF: 0 Continued levothyroxine 75 mcg tablet 75 mcg PO DAILY RF: 0 atorvastatin 20 MG tablet 20 mg PO QHS RF: 0 ferrous sulfate 325 mg (65 mg iron) tablet 325 mg PO BID RF: 0 cyanocobalamin (vitamin B-12) 1,000 MCG tablet 1,000 mcg PO DAILY RF: 0 potassium chloride 10 MEQ tablet extended release 10 meq PO DAILY RF: 0 warfarin 5 mg Tablet 5 mg PO TUTH RF: 0 warfarin 4 mg Tablet 4 mg PO SUMOWEFRSA RF: 0 isosorbide mononitrate 30 mg tablet extended release 24 hr 30 mg PO DAILY Qty: 0 RF: 0 Discontinued carvedilol 6.25 mg tablet 6.25 mg PO BID RF: 0 Referrals / Follow Up: Elmo Burdick DO [Primary Care Provider] - In 1 Week Mira Temple NP, [employer]IVER-C [Nurse Practitioner] - See Referral Note (As scheduled, 05/28/21) Reina Suero, PA [PHYSICIAN UNIX ENGINEER] - Within 2 Weeks Disposition Disposition (needs filled in before D/C Order can be placed): Home, Self Care Charges/Coding Visit Charges OBSV E&M: 49347 Observation care discharge Hospital Course Imaging Results Imaging Results: 03/31/21 09:03 Echo Complete [ECHO] Routine Operations None
--- NOTE | 2021-03-31 14:15 | CASEMGMT ---
MARGARET FERGUSON SENIOR WEB ENGINEER PHYLLIS to room to meet with patient for initial transition planning/care coordination assessment. MARGARET FERGUSON introduced self and role at [facility].? Pt voices understanding and consents to assessment at this time.? Pt resting in bed in no distress at this time.? Sis-in-law, Kristin, @ bedside. Pt agreeable to her being present during assessment. Pt is A/O at this time and answers all questions appropriately.?? Care providers, pharmacy, and demographics verified/updated at this time. PCP: [facility] Specialists: [facility] Preferred [facility]acy: [facility] Insurance: [employer] Prescription Benefit: yes LNOK: sister. Sis-in-lawKristin. Living Arrangements: Pt's identical twin sister lives w/her in a condo with 1 step to enter the home. Patient is independent at home. Transportation: sis-in-law or another family member. DME/HHC: Patient states she has a walker, and comfort height commode at home. Patient denies previous HHC. Pt and sis-in-law interested in pt HHC. Pt being discharged home today. ?They were provided with list of?HHC providers including quality and resource use data and consistent with the patient's preferred geographic region, medical needs, and insurance network. ?Their preferred provider is?[facility]. They were made aware HHC unable to be set-up on a weekend, but that MARGARET FERGUSON would leave a message w/[facility] re: their interest. They were made aware that, if [facility] unable to accept pt, then they would need to contact pt's PCP to have PCP set up HHC thru their office. They voice understanding. MARGARET FERGUSON placed call to [facility] and VM left re: pt's interest in HHC and stated pt being discharged home today. Pt/sis-in-law deny having any other needs/concerns/questions. Holli SANFORDN MARGARET FERGUSON
[2021-04-02 09:25] LABS: Vitamin B12 1040 pg/mL (211-911)
== END 2021-03-31 16:20 | disposition home or self-care (01) ==
LOC: ED 19:35 → PCU 19:48
PROVIDERS: Admitting Provider Internal Medicine; Emergency Provider Emergency Medicine; PCP Student in an Organized Health Care Education/Training Program; Visit Provider Internal Medicine
DX: I95.1 Orthostatic hypotension (principal); E78.5 Hyperlipidemia, unspecified; I48.0 Paroxysmal atrial fibrillation; I11.0 Hypertensive heart disease with heart failure; I50.42 Chronic combined systolic (congestive) and diastolic (congestive) heart failure; E03.9 Hypothyroidism, unspecified; I25.2 Old myocardial infarction; Q21.1 Atrial septal defect; I42.8 Other cardiomyopathies; Z87.891 Personal history of nicotine dependence; Z79.899 Other long term (current) drug therapy; Z79.01 Long term (current) use of anticoagulants; I45.2 Bifascicular block; I65.22 Occlusion and stenosis of left carotid artery
CPT/HCPCS: 36415; 71045; 80048; 81001; 82607; 83735; 84100; 84443; 84484; 85025; 85610; 87426; 93005; 93306; 96360; 96361; 97162; 97166; 99218; 99285; J7030; J7120; G0378

== ENCOUNTER 2021-05-22 23:28 | Inpatient (IN) | payer MEDICARE, OTHER, SELFPAY ==
[2021-05-22 23:29] VITALS: BP 185/102; PULSE 89; RESP 17; TEMP 36.8; O2SAT 97; BMI 20.5
--- NOTE | 2021-05-22 23:49 | EKG12_ITS ---
Test Reason : CP Blood Pressure : / mmHG Vent. Rate : 088 BPM Atrial Rate : 088 BPM P-R Int : 184 ms QRS Dur : 118 ms QT Int : 386 ms P-R-T Axes : 079 -64 053 degrees QTc Int : 467 ms Sinus rhythm with occasional Premature ventricular complexes Left axis deviation Right bundle branch block Abnormal ECG Confirmed by NIYAH CRAIG, ARACELI ([id number]), commissioning editor ZABRINA ALEXANDER ([id number]) on 05/28/2021 10:34:45 AM Referred By: SAMUEL Confirmed By:ISAI LINDER MD
--- NOTE | 2021-05-22 23:49 | RAD_ITS ---
STUDY: X-RAY CHEST REASON FOR EXAM: Female, 85 years old. chest pain TECHNIQUE: Single AP portable view of the chest. COMPARISON: 03/30/2021. FINDINGS: There is a left-sided dual-lead pacemaker in place. The lungs are clear and expanded. There is no demonstrated pleural abnormality. Normal size heart. Normal mediastinum and roc. Normal visualized pulmonary arteries. There is atherosclerotic calcification of the aortic arch with tortuosity. There is demineralization of the osseous structures. There is degenerative osteoarthritis of the bilateral shoulders. There is no demonstrated abnormality of the visualized soft tissue structures of the upper abdomen. RAD/Chest 1 View (Portable) IMPRESSION: No acute cardiopulmonary disease. Electronically Signed: Sharmila Brennan MD at 0:14 EDT , Service support ,
[2021-05-22 23:57] LABS: Absolute Lymphocyte Count 2.62 X10^3/uL (0.83-4.51); Absolute Neutrophil Count 3.7 X10^3/uL (2.0-7.7); Basophil# 0.02 X10^3/uL; Basophil% 0.3 % (0-1); Eosinophil# 0.12 X10^3/uL; Eosinophils% 1.7 % (0-5); Hemoglobin 13.1 g/dL (12.0-15.0); Lymphocyte # 2.62 X10^3/ul (0.83-4.51); Lymphocyte % 37.1 % (19-41); Mean Corpuscular Hgb 29.3 pg (27.0-32.0); Mean Corpuscular Volume 91.7 fL (81-99); Mean Platelet Vol. 9.4 fl (6.2-12.0); Monocyte# 0.58 X10^3/uL; Monocyte% 8.2 % (0-10); NRBC Flagged by Analyzer 0 % (0-5); Neutrophil # 3.71 X10^3/uL (2.7-7.7); Neutrophil % 52.6 % (47-70); Platelet Count 271 K/mm3 (150-450); RBC Distribution Width CV 12.5 % (11.6-14.6); RBC Distribution Width SD 42.3 fl (35.1-43.9); Red Blood Count 4.47 M/mm3 (4.2-5.4); White Blood Count 7.1 K/mm3 (4.4-11.0)
--- NOTE | 2021-05-22 23:57 | ED.VIS.CHEST ---
HPI History of Present Illness Chief Complaint: Chest Pain Informant: patient and family Onset/Context/Timing Onset: Today and Hours Activity at onset: sudden Timing: Continuous Quality: Positive for Pain; Negative for Pressure and Sharp Location: Substernal Current Severity: Mild Maximum Severity: Mild Worsened By: Nothing Relieved By: Nothing Associated Symptoms: Negative for Nausea, Vomiting, Diaphoresis, Dyspnea, Cough, Fever, Lightheadedness and Palpitations Narrative Narrative: 85-year-old female history of prior TIA, A. fib on Coumadin syncope with pacemaker. Prior breast cancer and carotid stenosis. Patient had a dental extraction done earlier today. She was off her Coumadin for 3 days. States that this evening. Several hours ago had sudden onset of midsternal chest pain radiating to her back. Denies any radiation to her neck jaw or left shoulder. No shortness of breath nor nausea no diaphoresis associated with it. She states has had this pain before but not this severe. Nothing particular makes it better or worse. She drank some coke at home and did some other things think and if she could burp or cough it would feel better but there is been no improvement. Prior Similar Symptoms: Yes Recent Illness/Hospitalization: No CVD Risk Factors: Negative for Diabetes and Smoking PE Risk Factors: Negative for Recent Travel/Surgery, Recent Immobilization, Prior DVT or PE, Cancer and OCP + Smoking + >/=35 TAD Risk Factors: Negative for Marfan's Syndrome [facility] Medical History (Updated 05/23/21 @ 02:[address] Govind Rich MD) Abnormal stress test Acute GI bleeding Atrial fibrillation with RVR Back pain Chronic antral gastritis CVA (cerebral vascular accident) Elevated blood pressure reading in office with white coat syndrome, without diagnosis of hypertension Elevated troponin (06/16/20) Essential (primary) hypertension Gastric polyp History of breast cancer History of non-ST elevation myocardial infarction (NSTEMI) (08/23/18) History of TIA (transient ischemic attack) (06/16/20) History of vasculitis Hypercoagulable state Hyperlipidemia Hypokalemia Hypothyroidism Lower gastrointestinal bleeding Multiple premature ventricular complexes Non-ischemic cardiomyopathy Non-ST elevation NH (NSTEMI) Orthostatic hypotension Orthostatic hypotension Osteoarthritis of spine Paroxysmal atrial fibrillation Patent foramen ovale Pre-syncope Right bundle branch block (RBBB) Sick sinus syndrome Stenosis of left carotid artery Syncope Vasculitis Home Medications atorvastatin 20 mg PO QHS 08/20/13 [History Last Taken 03/29/21] cyanocobalamin (vitamin B-12) 1,000 mcg PO DAILY 11/02/18 [History Last Taken 03/30/21] potassium chloride 10 meq PO DAILY 11/02/18 [History Last Taken 03/30/21] ferrous sulfate 325 mg (65 mg iron) tablet 325 mg PO BID tab 04/08/19 [History Last Taken 03/30/21] levothyroxine 75 mcg tablet 75 mcg PO DAILY 04/08/19 [History Last Taken 03/30/21] warfarin 4 mg PO SUMOWEFRSA 03/30/21 [History Last Taken 03/29/21] warfarin 5 mg PO TUTH 03/30/21 [History Last Taken 03/29/21] isosorbide mononitrate 30 mg PO DAILY #0 tab 03/31/21 [Rx Last Taken 03/30/21] carvedilol 12.5 mg tablet 6.25 mg PO BID tab 04/16/21 [History Last Taken Unknown] Allergy/AdvReac Type Severity Reaction Status Date / Time omeprazole Allergy Severe Swelling Verified 05/22/21 23:35 lansoprazole Allergy Intermediate edema Verified 05/22/21 23:35 levofloxacin [From Levaquin] Allergy Angioedema Verified 05/22/21 23:35 lisinopril Allergy Swelling Verified 05/22/21 23:35 Penicillins Allergy Itching Verified 05/22/21 23:35 Sulfa (Sulfonamide Allergy Angioedema Verified 05/22/21 23:35 Antibiotics) amlodipine AdvReac Severe severe Verified 05/22/21 23:35 hypotension Family History Father Myocardial infarction Sister CAD (coronary artery disease) Stents Brother CVA (cerebral vascular accident) Surgical History H/O cardiac catheterization (08/25/18) History of colonoscopy (08/2018) History of esophagogastroduodenoscopy (EGD) (08/2018) History of open reduction and internal fixation (ORIF) procedure History of permanent cardiac 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) History of right mastectomy Social History Smoking Status: Former smoker Tobacco: How many years used: 20 how long ago did patient quit smokin years ago second hand exposure: No alcohol intake: current alcohol intake frequency: holidays/special occasions only substance use type: does not use caffeine: No ROS ROS ED ROS Narrative Denies. Review of Systems ROS Unobtainable: Denies due to encephalopathy Constitutional Constitutional ED: Denies chills or fever(s) Eyes Eyes: Denies none ENT ENT ED: Denies ear pain Cardiovascular Cardiovascular: Reports as per HPI and chest pain; Denies palpitations Respiratory/Chest Respiratory/Chest: Denies cough or dyspnea Gastrointestinal Gastrointestinal: Denies abdominal pain, diarrhea, nausea or vomiting Genitourinary Genitourinary ED: Denies dysuria Musculoskeletal Musculoskeletal: Denies myalgias Integumentary Denies rash Neurologic Neurologic: Denies headache(s) Psychiatric Psychiatric: Denies depression Endocrine Endocrinology: Denies polyuria Hematologic/Lymphatic Hematologic/Lymphatic: Denies easy bruising Allergic/Immunologic Allergic/Immunologic ED: Denies urticaria EXAM Physical Exam Narrative Exam Narrative: 85-year-old female no distress. Initial blood pressure 185/102. Pulse ox 97% on room air. Afebrile. Family at bedside. HEENT exam unremarkable. Well-healing left lower tooth extraction. Posterior pharynx normal. No trouble swallowing or breathing. No stridor or drooling. Neck nontender no lymphadenopathy. Lungs clear to auscultation bilaterally. Heart regular rate and rhythm rate about 90 no murmur. Chest wall nontender. Abdomen soft nontender. Patient moving all 4 extremities. Calves no edema. Neurologically she is awake and alert. Back nontender. Equal symmetrical radial pulses. Const Vital Signs: 05/22/21 23:29 05/22/21 23:56 05/23/21 00:48 Temperature 98.2 F Temperature Source Oral Pulse Rate 89 73 Respiratory Rate 17 17 Blood Pressure 185/102 H 120/92 H Blood Pressure Mean 129 101 Pulse Ox 97 97 Oxygen Delivery Method Room Air Room Air Room Air 05/23/21 01:00 05/23/21 02:00 Temperature Temperature Source Pulse Rate 85 78 Respiratory Rate 18 25 H Blood Pressure 146/59 H 167/89 H Blood Pressure Mean 88 115 Pulse Ox 97 92 Oxygen Delivery Method Room Air Positive well nourished and well developed; Negative for obese, cachectic, contractures or unkempt General Appearance ED: well developed and NAD; Negative for unkempt, cachectic or contractures Nutritional Appearance: Negative for cachectic or obese HEENT Reports moist mucous membranes normocephalic and atraumatic; Negative for trauma Eyes PERRL and EOMs intact bilaterally Neck no lymphadenopathy, supple and no JVD General: Negative for tenderness Chest Wall inspection of chest normal and palpation of chest normal Resp normal respiratory effort and clear to auscultation bilaterally Effort and Inspection: respiratory distress Auscultation: Negative for rales, rhonchi or wheezes Cardio regular rate, regular rhythm, S1 normal heart sound, S2 normal heart sound and no murmurs Rate: Negative for tachycardic GI normal to inspection, nondistended, normoactive bowel sounds, soft to palpation, non-tender, non-distended and no masses Back/Spine no CVA tenderness Extremity normal to inspection General Extremety ED: Negative for edema General Extremity: Negative for edema Neuro oriented x3 Sensorium / Orientation: awake, alert, oriented to person, oriented to place and oriented to time Motor Exam: strength 5/5 throughout Psych mental status grossly normal Appearance: Negative for unkempt Skin no rashes or lesions noted and no wounds Heart Score History: Moderately Suspicious ECG: Normal Age: >/= 65 years Risk Factors: 1 or 2 Risk Factors Troponin: >/=3 x Normal Limit Score: 6 MDM MDM MDM Narrative Medical decision making narrative: 85-year-old female with midsternal chest pain radiating to her back. Obviously consider cardiac etiology. Versus either an aortic dissection. Clinically this may be GI related like reflux or esophageal spasm. She will be given aspirin due to the possibly being cardiac in nature. Her EKG is unremarkable and unchanged from earlier this year. She will be given GI cocktail Pepcid. Cardiac work-up pending. Repeat exam patient is doing very well at time 12:30 AM. She said after she took the GI cocktail which was that and p.o. Pepcid her pain is completely gone. Clinically I undistorted I do think this may be GI. I do have concern with the elevated cardiac enzymes and this can be repeated in 2 hours. The repeat EKG was unchanged. Repeat cardiac enzymes were around the same level of 570. Discussed with the patient and the family and I will speak to the hospitalist about admission. Lab Data Attestation: I reviewed the patient's lab results. Lab results narrative: CBC unremarkable. White count of 7. Hemoglobin 13. Electrolytes unremarkable gap of 6. Normal creatinine. Glucose 134. Troponin is elevated at 582. Repeat EKG was in sinus rhythm rate of 79 no acute signs of NH or ischemia. Labs: Laboratory Results - last 24 hr 05/22/21 05/22/21 05/23/21 23:10 23:10 01:10 WBC 7.1 RBC 4.47 Hgb 13.1 Hct 41.0 MCV 91.7 MCH 29.3 MCHC 32.0 RDW Std Deviation 42.3 RDW Coeff of Duc 12.5 Plt Count 271 MPV 9.4 Immature Gran % (Auto) 0.100 Neut % (Auto) 52.6 Lymph % (Auto) 37.1 Wise % (Auto) 8.2 Eos % (Auto) 1.7 Baso % (Auto) 0.3 Absolute Neuts (auto) 3.7 Absolute Lymphs (auto) 2.62 Nucleated RBC % 0 Sodium 143 Potassium 4.1 Chloride 108 H Carbon Dioxide 29.0 Anion Gap 6 BUN 19 H Creatinine 0.78 Estim Creat Clear Calc 38.57 Est GFR (MDRD) Af Amer 90 Est GFR (MDRD) Non-Af 74 BUN/Creatinine Ratio 24.3 H Glucose 134 H Calcium 9.4 Troponin I High Sens 582 H* 570 H* Radiography Chest X-Ray - ED: 1 View, Read by ED Physician, Normal, Heart, Lungs, Mediastinum, Bony Structures, No Acute Disease and Chronic Changes Diagnostic Testing: Radiology Impression Chest X-Ray 05/22/21 23:49 IMPRESSION: No acute cardiopulmonary disease. Electronically Signed: Sharmila Brennan MD at 0:14 EDT , Service support , Portable chest x-ray single view interpreted by myself shows no acute abnormality. Normal cardiac silhouette. Normal mediastinum and aortic knob. No obvious signs of dissection. Pacemaker on the left. No infiltrates. Rhythm Strip Rhythm Strip: Sinus Rhythm Rate: 88 Ectopy: PVC(s) EKG Initial EKG: Attestation: I personally reviewed and interpreted this EKG as follows: Interpretation: Sinus Rhythm and No Acute Injury Pattern Comments: Normal sinus rhythm with occasional PVCs. Right bundle branch block. Left anterior fascicular block. Unchanged from prior EKG from March no acute signs of NH or ischemia. Repeat EKG at 00 40 1 AM had no change. Again the sinus rhythm rate of 79 with occasional PVCs. No acute signs of NH or ischemia. 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 Prior EKG tracings: available for review Prior: Unchanged Discharge Plan Dx/Rx/DC Orders Clinical Impression: Chest pain, Elevation of cardiac enzymes, Anticoagulated on Coumadin Disposition Disposition: Acute Care [facility]
[2021-05-22] MEDS: Aspirin 81 MG TAB.CHEW 324 MG PO (23:59)
[2021-05-23] VITALS (20 sets, daily range): BP systolic 95–167; BP diastolic 59–106; PULSE 67–114; RESP 14–25; TEMP 36.3–37.1; O2SAT 90–100; BMI 19.3
[2021-05-23] MEDS: Famotidine 20 MG Tablet 40 MG PO (00:03)
[2021-05-23] MEDS: Mag Hydrox/Al Hydrox/Simeth 30 ML UDC PO (00:04)
[2021-05-23 00:17] LABS: Anion Gap 6 (5-15); BUN 19 mg/dL (7-18); BUN/Creat Ratio 24.3 RATIO (10-20); Calcium,Total 9.4 mg/dL (8.5-10.1); Chloride 108 mmol/L (98-107); Creatinine, Serum 0.78 mg/dL (0.55-1.02); EST Glomerular Filtration Rate 74 mL/min (>60); Est Glom Filt Rate - Afr Amer 90 mL/min (>60); Estimated Creatinine Clearance 38.57 ml/min; Glucose 134 mg/dL (74-106); Potassium 4.1 mmol/L (3.5-5.1); Sodium Level 143 mmol/L (136-145); Troponin-I HS 582 pg/mL (3.0-54.0)
--- NOTE | 2021-05-23 00:26 | EKG12_ITS ---
Test Reason : CP Blood Pressure : / mmHG Vent. Rate : 079 BPM Atrial Rate : 079 BPM P-R Int : 180 ms QRS Dur : 130 ms QT Int : 378 ms P-R-T Axes : 084 -61 039 degrees QTc Int : 433 ms Sinus rhythm with occasional Premature ventricular complexes Left axis deviation Right bundle branch block Abnormal ECG Confirmed by NIYAH CRAIG, ARACELI ([id number]), video tape editor ZABRINA ALEXANDER ([id number]) on 05/28/2021 10:35:26 AM Referred By: SAMUEL Confirmed By:ISAI LINDER MD
[2021-05-23 02:03] LABS: Troponin-I HS 570 pg/mL (3.0-54.0)
--- NOTE | 2021-05-23 02:26 | PCM.HP.STD ---
HPI - General General Date of Admission: 05/23/21 Date of Service: 05/23/21 Chief Complaint: Chest pain HPI Narrative LUCRETIA LEAL, is a 85 F who presented to the emergency department [facility] on 04/22/2021 late in the evening. She is a complicated past medical history that includes history of TIA PAF with chronic anticoagulation and history of sick sinus syndrome, carotid artery stenosis, and prior breast cancer on the left side. The patient reports she had a dental extraction done earlier today and she has been off her Coumadin for 3 days now. She reports that this evening she was sitting comfortably when she began having substernal chest pain that radiated to her back. She denies any further radiation, denies shortness of breath, nausea, or diaphoresis associated with this pain and reports that she has had this pain previously but never this severe. Her records indicate she has had a previous cardiac catheterization although this is untrue. She has a twin sister which had this cardiac catheterization and the records are in the incorrect chart. The patient felt that if she could belch her symptoms would improve but there was no improvement with this remedy. In the emergency department her vital signs were fairly unremarkable other than some hypertension which appeared to be fairly persistent. Her CBC was completely unremarkable. Her INR was 2.3. Her BMP was unremarkable. Her troponin was elevated with an initial high-sensitivity troponin at 528 and a repeat at 570. She is have elevated troponin levels in the past but never this high. Her chest pain had resolved but upon my evaluation was slowly recurring. She will be given nitroglycerin which she was given in the squad and states that it helped at that time. Her EKG shows no new ST-T wave changes consistent with ischemia. To be admitted to PCU for further work-up. She sees Dr. Mayberry for her other cardiac issues. [facility] Medical History (Updated 05/23/21 @ 03:[address] Libertad Hall, DO) Abnormal stress test Acute GI bleeding Atrial fibrillation with RVR Back pain Chronic antral gastritis CVA (cerebral vascular accident) Elevated blood pressure reading in office with white coat syndrome, without diagnosis of hypertension Elevated troponin (06/16/20) Essential (primary) hypertension Gastric polyp History of breast cancer History of non-ST elevation myocardial infarction (NSTEMI) (08/23/18) History of TIA (transient ischemic attack) (06/16/20) History of vasculitis Hypercoagulable state Hyperlipidemia Hypokalemia Hypothyroidism Lower gastrointestinal bleeding Multiple premature ventricular complexes Non-ischemic cardiomyopathy Non-ST elevation [place] (NSTEMI) Orthostatic hypotension Orthostatic hypotension Osteoarthritis of spine Paroxysmal atrial fibrillation Patent foramen ovale Pre-syncope Right bundle branch block (RBBB) Sick sinus syndrome Stenosis of left carotid artery Syncope Vasculitis Home Medications atorvastatin 20 mg PO QHS 08/20/13 [History Last Taken 03/29/21] cyanocobalamin (vitamin B-12) 1,000 mcg PO DAILY 11/02/18 [History Last Taken 03/30/21] potassium chloride 10 meq PO DAILY 11/02/18 [History Last Taken 03/30/21] ferrous sulfate 325 mg (65 mg iron) tablet 325 mg PO BID tab 04/08/19 [History Last Taken 03/30/21] levothyroxine 75 mcg tablet 75 mcg PO DAILY 04/08/19 [History Last Taken 03/30/21] warfarin 4 mg PO SUMOWEFRSA 03/30/21 [History Last Taken 03/29/21] warfarin 5 mg PO TUTH 03/30/21 [History Last Taken 03/29/21] carvedilol 12.5 mg tablet 6.25 mg PO BID tab 04/16/21 [History Last Taken Unknown] isosorbide mononitrate 30 mg PO DAILY 05/23/21 [History Last Taken Unknown] Allergy/AdvReac Type Severity Reaction Status Date / Time omeprazole Allergy Severe Swelling Verified 05/22/21 23:35 lansoprazole Allergy Intermediate edema Verified 05/22/21 23:35 levofloxacin [From Levaquin] Allergy Angioedema Verified 05/22/21 23:35 lisinopril Allergy Swelling Verified 05/22/21 23:35 Penicillins Allergy Itching Verified 05/22/21 23:35 Sulfa (Sulfonamide Allergy Angioedema Verified 05/22/21 23:35 Antibiotics) amlodipine AdvReac Severe severe Verified 05/22/21 23:35 hypotension Family History Father Myocardial infarction Sister CAD (coronary artery disease) Stents Brother CVA (cerebral vascular accident) Surgical History H/O cardiac catheterization (08/25/18) History of colonoscopy (08/2018) History of esophagogastroduodenoscopy (EGD) (08/2018) History of open reduction and internal fixation (ORIF) procedure History of permanent cardiac 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) History of right mastectomy Social History Smoking Status: Former smoker Tobacco: How many years used: 20 how long ago did patient quit smokin years ago second hand exposure: No alcohol intake: current alcohol intake frequency: holidays/special occasions only substance use type: does not use caffeine: No ROS Constitutional Constitutional: Denies anorexia, change in weight, chills, fatigue, fever(s), malaise, night sweats, weakness or other Eyes Eyes: Denies blurry vision, change in eye color, change in vision, discharge from eye(s), double vision, erythema, eye pain, loss of vision or other ENT HEENT: Reports abnormal hearing and hearing loss; Denies dysphagia, ear pain, epistaxis, headache(s), nasal congestion, nasal discharge, post nasal drip, sinus pressure, sore throat or other Cardiovascular Cardiovascular: Reports chest pain; Denies claudication, dyspnea on exertion, edema, lightheadedness, orthopnea, palpitations, paroxysmal nocturnal dyspnea, rapid heart rate, syncope or other Respiratory/Chest Respiratory/Chest: Denies cough, dyspnea, excessive phlegm production, hemoptysis, productive cough, shortness of breath at rest, shortness of breath with exertion, wheezing or other Gastrointestinal Gastrointestinal: Reports other Details: Feels as if she has to belch ; Denies abdominal pain, coffee ground emesis, constipation, diarrhea, dyspepsia, hematemesis, hematochezia, loose stools, melena, nausea or vomiting Musculoskeletal Musculoskeletal: Reports back pain, joint pain and joint stiffness; Denies arthralgias, joint swelling, myalgias, neck pain or other Neurologic Neurologic: Denies abnormal gait, abnormal speech, confusion, disequilibrium, dizziness, focal weakness, headache(s), numbness, paresthesias, seizure-like activity, seizures, syncope, tingling, tremor(s) or other Psychiatric Psychiatric: Denies anxiety, depression, homicidal ideation, suicidal ideation or other Endocrine Endocrinology: Denies change in body appearance, cold intolerance, excessive sweating, heat intolerance, polydipsia, polyuria or other Hematologic/Lymphatic Hematologic/Lymphatic: Denies anemia, easy bleeding, easy bruising, lymphadenopathy or other Allergic/Immunologic Allergic/Immunologic: Denies rhinitis, hives, eczemia, asthma or other Vital Signs Vital Signs Vital Signs: 05/22/21 23:29 05/22/21 23:56 05/23/21 00:48 Temperature 98.2 F Temperature Source Oral Pulse Rate 89 73 Respiratory Rate 17 17 Blood Pressure 185/102 H 120/92 H Blood Pressure Mean 129 101 Pulse Ox 97 97 Oxygen Delivery Method Room Air Room Air Room Air 05/23/21 01:00 05/23/21 02:00 Temperature Temperature Source Pulse Rate 85 78 Respiratory Rate 18 25 H Blood Pressure 146/59 H 167/89 H Blood Pressure Mean 88 115 Pulse Ox 97 92 Oxygen Delivery Method Room Air Weight Weight: 59.4 kg Body Mass Index (BMI) 20.5 Physical Exam Const alert, oriented x3 and no apparent distress Constitutional Narrative: Elderly white female sitting up in bed, niece is at bedside, patient appears well, nontoxic General Appearance: cooperative HEENT normocephalic, head/scalp atraumatic and moist oral mucous membranes HEENT Narrative: Mild KNIK, left lower jaw tooth extraction noted with no signs of bleeding, Mallampati 2, fair dentition for age Eyes PERRL, EOMs intact bilaterally and conjunctivae normal Neck no lymphadenopathy, supple, no JVD and no carotid bruits Neck Narrative: Trachea midline, no thyroid enlargement or nodules noted on exam Resp normal respiratory effort, no retractions, no use of accessory muscles and clear to auscultation bilaterally Auscultation: Negative for crackles, rales, rhonchi or wheezes Cardio regular rate, regular rhythm, S1 normal heart sound, S2 normal heart sound, no murmurs, no rub, no gallops, no clicks and no JVD GI normal to inspection, nondistended, normoactive bowel sounds, soft to palpation, non-tender and non-distended Extremity no clubbing, cyanosis or edema Extremity Narrative: Tender distal lower extremities Peripheral Pulses: Yes pulses 2+ throughout Skin no rashes or lesions noted, no wounds, skin turgor normal, no jaundice, no petechiae and no mottling Neuro oriented x3, CN's II-XII intact bilaterally, moves all extremities and no focal motor deficits Neuro Narrative: Mild generalized weakness proximal greater than distal Sensorium / Orientation: awake, alert, oriented to person, oriented to place and oriented to time Speech: speech normal Psych affect normal Results Lab / Micro Data Attestation: I reviewed the patient's lab results. Result Diagrams: 05/22/21 23:10 05/22/21 23:10 Labs: Laboratory Results - last 24 hr 05/22/21 23:10: WBC 7.1, RBC 4.47, Hgb 13.1, Hct 41.0, MCV 91.7, MCH 29.3, MCHC 32.0, RDW Std Deviation 42.3, RDW Coeff of Duc 12.5, Plt Count 271, MPV 9.4, Immature Gran % (Auto) 0.100, Neut % (Auto) 52.6, Lymph % (Auto) 37.1, [place] % (Auto) 8.2, Eos % (Auto) 1.7, Baso % (Auto) 0.3, Absolute Neuts (auto) 3.7, Absolute Lymphs (auto) 2.62, Nucleated RBC % 0 05/22/21 23:10: Sodium 143, Potassium 4.1, Chloride 108 H, Carbon Dioxide 29.0, Anion Gap 6, BUN 19 H, Creatinine 0.78, Estim Creat Clear Calc 38.57, Est GFR (MDRD) Af Amer 90, Est GFR (MDRD) Non-Af 74, BUN/Creatinine Ratio 24.3 H, Glucose 134 H, Calcium 9.4, Troponin I High Sens 582 H* 05/23/21 01:10: Troponin I High Sens 570 H* Rhythm Strip Rhythm Strip: Sinus Rhythm Rate: 88 Ectopy: PVC(s) Radiology Impression Chest X-Ray 05/22/21 23:49 IMPRESSION: No acute cardiopulmonary disease. Electronically Signed: Sharmila Brennan MD at 0:14 EDT , Service support , Assessment & Plan Assessment/Plan (1) Chest pain: (2) NSTEMI, initial episode of care: (3) Anticoagulated on Coumadin: PLAN: NSTEMI -Cardiac enzymes elevated -Elevated chronically but this elevation is significant compared to previous -Patient is currently fully anticoagulated with Coumadin and INR is 2.3 therefore will hold heparin drip at this time -Hold Coumadin -N.p.o. -Check lipids -Continue aspirin, carvedilol, statin -Per chart cardiac catheterization is documented but this is in the incorrect chart and the patient has never had a cardiac catheterization--> this was her twin sister who had this cardiac cath -Follows with Dr. Mayberry for cardiology -Patient is highly functional at baseline -Consult cardiology Recent dental extraction -Continue clindamycin as ordered 300 mg every 6 hours -Patient to complete this after discharge Hypertension -Continue carvedilol -Continue isosorbide mononitrate Hypothyroidism -Continue levothyroxine -Check thyroid with TSH Hyperlipidemia -Continue statin PAF/SSS -Has had pacemaker placed in the past -Coumadin on hold for now given possible need for cardiac catheterization DVT prophylaxis -Patient is currently fully anticoagulated -SCDs -Once INR is less than 2 consider initiation of Lovenox CODE STATUS -DNR CCA no intubation Charges/Coding Visit Charges Inpatient E&M: 02140 Init Hosp L3
[2021-05-23 03:05] LABS: International Normalized Ratio 2.3; Prothrombin Time (Protime)PT. 24.1 SECONDS (11.7-14.9)
[2021-05-23 05:23] LABS: Absolute Lymphocyte Count 1.34 X10^3/uL (0.83-4.51); Absolute Neutrophil Count 5.2 X10^3/uL (2.0-7.7); Basophil# 0.04 X10^3/uL; Basophil% 0.5 % (0-1); Eosinophils% 1.4 % (0-5); Hematocrit 42.8 % (37-47); Hemoglobin 13.2 g/dL (12.0-15.0); Lymphocyte # 1.34 X10^3/ul (0.83-4.51); Lymphocyte % 18.3 % (19-41); Mean Corp Hgb Conc 30.8 g/dL (32-36); Mean Corpuscular Hgb 29.5 pg (27.0-32.0); Mean Corpuscular Volume 95.7 fL (81-99); Mean Platelet Vol. 9.2 fl (6.2-12.0); Monocyte# 0.58 X10^3/uL; Monocyte% 7.9 % (0-10); NRBC Flagged by Analyzer 0 % (0-5); Neutrophil # 5.24 X10^3/uL (2.7-7.7); Neutrophil % 71.6 % (47-70); Platelet Count 218 K/mm3 (150-450); RBC Distribution Width CV 12.3 % (11.6-14.6); RBC Distribution Width SD 43.6 fl (35.1-43.9); Red Blood Count 4.47 M/mm3 (4.2-5.4); White Blood Count 7.3 K/mm3 (4.4-11.0)
[2021-05-23] MEDS: Levothyroxine 75 MCG Tablet PO (05:24)
[2021-05-23 05:36] LABS: International Normalized Ratio 1.5; Prothrombin Time (Protime)PT. 16.9 SECONDS (11.7-14.9)
[2021-05-23 05:57] LABS: ALB/GLOB Ratio 0.7 RATIO (0.9-2.4); AST(SGOT) 19 U/L (15-37); Alanine Aminotransfer ALT/SGPT 13 U/L (13-56); Albumin, Serum 2.8 g/dL (3.2-5.0); Alkaline Phosphatase 75 U/L (45-117); Anion Gap 7 (5-15); BUN 16 mg/dL (7-18); BUN/Creat Ratio 22.3 RATIO (10-20); Calcium,Total 8.6 mg/dL (8.5-10.1); Chloride 108 mmol/L (98-107); Cholesterol 129 mg/dL (200); Creatinine, Serum 0.72 mg/dL (0.55-1.02); EST Glomerular Filtration Rate 82 mL/min (>60); Est Glom Filt Rate - Afr Amer 99 mL/min (>60); Estimated Creatinine Clearance 36.23 ml/min; Glucose 106 mg/dL (74-106); High Density Lipoprotein 51 mg/dL; Magnesium 2.2 mg/dL (1.6-2.6); Potassium 3.8 mmol/L (3.5-5.1); Protein, Total 6.8 g/dL (6.4-8.2); Sodium Level 141 mmol/L (136-145); Triglycerides 60 mg/dL; Very Low Density Lipoprotein 12 mg/dL (5-40)
--- NOTE | 2021-05-23 06:00 | NURSING ---
Pts primary rn aware of troponin result of 573 at this time.
[2021-05-23 06:01] LABS: Phosphorus 2.5 mg/dL (2.5-4.9); Troponin-I HS 573 pg/mL (3.0-54.0)
[2021-05-23 06:23] LABS: Partial Thromboplast Time 31.1 Seconds (24.1-36.2)
[2021-05-23] MEDS: Heparin Injection (Vial) 5,000 UNIT/ML VIAL 4000 UNIT IV (06:42)
[2021-05-23] MEDS: HEPARIN/D5w 25,000 UNITS 25,000 UNITS/250 ML IV.SOLN. 8 UNITS IV (06:44)
--- NOTE | 2021-05-23 07:58 | CON.PCM.CA_ITS ---
Assessment & Plan Assessment/Plan (1) NSTEMI, initial episode of care: PLAN: Appears to be evidence of a non-ST elevation myocardial infarction. I would recommend that we evaluate her by looking at her coronary anatomy with a left heart catheterization. The risk benefits and alternatives have been explained to her she understands and agrees to proceed. Addendum at 11:42 AM. Cardiac catheterization performed demonstrates essentially normal coronary arteries with tortuous vessels. No high-grade obstruction noted. Would recommend outpatient follow-up. (2) History of permanent cardiac pacemaker placement: PLAN: She is status post permanent pacemaker implantation. We will continue to evaluate the above through the pacemaker office. (3) Essential (primary) hypertension: PLAN: Her blood pressure appears to be under good control at this time and I would not recommend that we make any other changes. HPI Consult Data Date of Consult: 05/23/21 HPI Narrative HPI Narrative: LUCRETIA LEAL, is a 85 F who presents to the emergency room with substernal chest discomfort which radiates to her back. She says that she has had this on occasion and she usually hits her back and then it gets better. However last night it appeared to be quite severe and so she presented to the e mergency room. She was evaluated and her EKG was unremarkable however her troponins were abnormal. Cardiology was called for further evaluation and management. She has not had any shortness of breath dizziness diaphoresis syncope or near syncope. The medical records indicate that she may have had a cardiac catheterization 2 years ago but she says that this was her twin sister and that the records may have been mixed up. She categorically denies having any cardiac catheterization. She is status post permanent pacemaker implantation however. This morning she is doing well without any obvious cardiac symptoms. [facility] Medical History Abnormal stress test Acute GI bleeding Atrial fibrillation with RVR Back pain Chronic antral gastritis CVA (cerebral vascular accident) Elevated blood pressure reading in office with white coat syndrome, without diagnosis of hypertension Elevated troponin (06/16/20) Essential (primary) hypertension Gastric polyp History of breast cancer History of non-ST elevation myocardial infarction (NSTEMI) (08/23/18) History of TIA (transient ischemic attack) (06/16/20) History of vasculitis Hypercoagulable state Hyperlipidemia Hypokalemia Hypothyroidism Lower gastrointestinal bleeding Multiple premature ventricular complexes Non-ischemic cardiomyopathy Non-ST elevation [place] (NSTEMI) Orthostatic hypotension Orthostatic hypotension Osteoarthritis of spine Paroxysmal atrial fibrillation Patent foramen ovale Pre-syncope Right bundle branch block (RBBB) Sick sinus syndrome Stenosis of left carotid artery Syncope Vasculitis Home Medications atorvastatin 20 mg PO QHS 08/20/13 [History Last Taken 03/29/21] cyanocobalamin (vitamin B-12) 1,000 mcg PO DAILY 11/02/18 [History Last Taken 03/30/21] potassium chloride 10 meq PO DAILY 11/02/18 [History Last Taken 03/30/21] ferrous sulfate 325 mg (65 mg iron) tablet 325 mg PO BID tab 04/08/19 [History Last Taken 03/30/21] levothyroxine 75 mcg tablet 75 mcg PO DAILY 04/08/19 [History Last Taken 03/30/21] warfarin 4 mg PO SUMOWEFRSA 03/30/21 [History Last Taken 03/29/21] warfarin 5 mg PO TUTH 03/30/21 [History Last Taken 03/29/21] carvedilol 12.5 mg tablet 6.25 mg PO BID tab 04/16/21 [History Last Taken Unknown] isosorbide mononitrate 30 mg PO DAILY 05/23/21 [History Last Taken Unknown] Allergy/AdvReac Type Severity Reaction Status Date / Time omeprazole Allergy Severe Swelling Verified 05/22/21 23:35 lansoprazole Allergy Intermediate edema Verified 05/22/21 23:35 levofloxacin [From Levaquin] Allergy Angioedema Verified 05/22/21 23:35 lisinopril Allergy Swelling Verified 05/22/21 23:35 Penicillins Allergy Itching Verified 05/22/21 23:35 Sulfa (Sulfonamide Allergy Angioedema Verified 05/22/21 23:35 Antibiotics) amlodipine AdvReac Severe severe Verified 05/22/21 23:35 hypotension Family History Father Myocardial infarction Sister CAD (coronary artery disease) Stents Brother CVA (cerebral vascular accident) Surgical History H/O cardiac catheterization (08/25/18) History of colonoscopy (08/2018) History of esophagogastroduodenoscopy (EGD) (08/2018) History of open reduction and internal fixation (ORIF) procedure History of permanent cardiac 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) History of right mastectomy Social History Smoking Status: Former smoker Tobacco: How many years used: 20 how long ago did patient quit smokin years ago second hand exposure: No alcohol intake: current alcohol intake frequency: holidays/special occasions only substance use type: does not use caffeine: No ROS Constitutional Constitutional: Denies fever(s) or weight loss Eyes Eyes: Reports systems reviewed and no addt'l complaints, except as documented ENT HEENT: Reports systems reviewed and no addt'l complaints, except as documented Cardiovascular Cardiovascular: Reports chest pain at rest and chest pain with activity; Denies dyspnea at rest, dyspnea on exertion, edema, palpitations or paroxysmal nocturnal dyspnea Respiratory/Chest Respiratory/Chest: Denies dyspnea on exertion, productive cough, shortness of breath at rest or shortness of breath with exertion Gastrointestinal Gastrointestinal: Denies change in bowel habits, nausea, vomiting or weight changes Genitourinary Genitourinary: Denies difficulty urinating Musculoskeletal Musculoskeletal: Denies joint stiffness or muscle weakness Integumentary Integumentary: Denies lesions Neurologic Neurologic: Denies dizziness or syncope Psychiatric Psychiatric: Denies anxiety Endocrine Endocrinology: Denies excessive sweating or fatigue Hematologic/Lymphatic Hematologic/Lymphatic: Denies anemia Allergic/Immunologic Allergic/Immunologic: Denies seasonal rhinorrhea Physical Exam Const alert, oriented x3 and no apparent distress General Appearance: cooperative HEENT hearing grossly normal bilaterally Head and Scalp: atraumatic Eyes EOMs intact bilaterally Neck General: normal visual inspection Chest inspection of chest normal and palpation of chest normal Resp normal respiratory effort Auscultation: clear to auscultation bilaterally Cardio regular rate, regular rhythm, S1 normal heart sound and S2 normal heart sound Jugular Venous Distention: JVD GI normal to inspection, nondistended, normoactive bowel sounds Extremity normal capillary refill and no pedal edema Peripheral Pulses: Yes pulses 2+ throughout and femoral pulses present Skin no rashes or lesions noted Neuro oriented x3 and CN's II-XII intact bilaterally Psych Appearance: grossly normal and appropriate Objective Data Vital Signs: Vital Signs Temp Pulse Resp BP Pulse Ox 98.1 F 84 16 149/106 H 94 05/23/21 07:56 05/23/21 07:56 05/23/21 07:56 05/23/21 07:56 05/23/21 07:56 Oxygen Delivery Method Room Air Weight: 123 lb 0.287 oz Body Mass Index (BMI) 19.3 Intake & Output: Intake and Output for Last 24 Hours 05/21/21 05/22/21 05/23/21 23:59 23:59 23:59 Intake Total 50 / 50 Balance 50 / 50 Lab / Micro Data Result Diagrams: 05/23/21 05:00 05/23/21 05:00 Labs: Laboratory Results - last 24 hr 05/22/21 23:10: WBC 7.1, RBC 4.47, Hgb 13.1, Hct 41.0, MCV 91.7, MCH 29.3, MCHC 32.0, RDW Std Deviation 42.3, RDW Coeff of Duc 12.5, Plt Count 271, MPV 9.4, Immature Gran % (Auto) 0.100, Neut % (Auto) 52.6, Lymph % (Auto) 37.1, [place] % (Auto) 8.2, Eos % (Auto) 1.7, Baso % (Auto) 0.3, Absolute Neuts (auto) 3.7, Absolute Lymphs (auto) 2.62, Nucleated RBC % 0 05/22/21 23:10: Sodium 143, Potassium 4.1, Chloride 108 H, Carbon Dioxide 29.0, Anion Gap 6, BUN 19 H, Creatinine 0.78, Estim Creat Clear Calc 38.57, Est GFR (MDRD) Af Amer 90, Est GFR (MDRD) Non-Af 74, BUN/Creatinine Ratio 24.3 H, G lucose 134 H, Calcium 9.4, Troponin I High Sens 582 H* 05/23/21 01:10: Troponin I High Sens 570 H* 05/23/21 02:44: PT 24.1 H, INR 2.3 05/23/21 05:00: WBC 7.3, RBC 4.47, Hgb 13.2, Hct 42.8, MCV 95.7, MCH 29.5, MCHC 30.8 L, RDW Std Deviation 43.6, RDW Coeff of Duc 12.3, Plt Count 218, MPV 9.2, Immature Gran % (Auto) 0.300, Neut % (Auto) 71.6 H, Lymph % (Auto) 18.3 L, [place] % (Auto) 7.9, Eos % (Auto) 1.4, Baso % (Auto) 0.5, Absolute Neuts (auto) 5.2, Absolute Lymphs (auto) 1.34, Nucleated RBC % 0 05/23/21 05:00: Sodium 141, Potassium 3.8, Chloride 108 H, Carbon Dioxide 26.0, Anion Gap 7, BUN 16, Creatinine 0.72, Estim Creat Clear Calc 36.23, Est GFR (MDRD) Af Amer 99, Est GFR (MDRD) Non-Af 82, BUN/Creatinine Ratio 22.3 H, Glucose 106, Calcium 8.6, Magnesium 2.2, Total Bilirubin 0.50, AST 19, ALT 13, Alkaline Phosphatase 75, Total Protein 6.8, Albumin 2.8 L, Globulin 4.0, Albumin/Globulin Ratio 0.7 L, Triglycerides 60, Cholesterol 129, LDL Cholesterol 66, VLDL Cholesterol 12, HDL Cholesterol 51 05/23/21 05:00: PT 16.9 H, INR 1.5 05/23/21 05:00: Phosphorus 2.5, Troponin I High Sens 573 H* 05/23/21 05:00: APTT 31.1 Rhythm Strip Rhythm Strip: Sinus Rhythm Rate: 88 Ectopy: PVC(s) Cardiology Labs/Tests 05/22/21 23:10: WBC 7.1, RBC 4.47, Hgb 13.1, Hct 41.0, MCV 91.7, MCH 29.3, MCHC 32.0, Plt Count 271, MPV 9.4, Immature Gran % (Auto) 0.100, Neut % (Auto) 52.6, Lymph % (Auto) 37.1, [place] % (Auto) 8.2, Eos % (Auto) 1.7, Baso % (Auto) 0.3, Absolute Neuts (auto) 3.7, Nucleated RBC % 0 05/22/21 23:10: Sodium 143, Potassium 4.1, Chloride 108 H, Carbon Dioxide 29.0, Anion Gap 6, BUN 19 H, Creatinine 0.78, Est GFR (MDRD) Af Amer 90, Est GFR (MDRD) Non-Af 74, BUN/Creatinine Ratio 24.3 H, Glucose 134 H, Calcium 9.4 05/23/21 02:44: PT 24.1 H, INR 2.3 05/23/21 05:00: WBC 7.3, RBC 4.47, Hgb 13.2, Hct 42.8, MCV 95.7, MCH 29.5, MCHC 30.8 L, Plt Count 218, MPV 9.2, Immature Gran % (Auto) 0.300, Neut % (Auto) 71.6 H, Lymph % (Auto) 18.3 L, [place] % (Auto) 7.9, Eos % (Auto) 1.4, Baso % (Auto) 0.5, Absolute Neuts (auto) 5.2, Nucleated RBC % 0 05/23/21 05:00: Sodium 141, Potassium 3.8, Chloride 108 H, Carbon Dioxide 26.0, Anion Gap 7, BUN 16, Creatinine 0.72, Est GFR (MDRD) Af Amer 99, Est GFR (MDRD) Non-Af 82, BUN/Creatinine Ratio 22.3 H, Glucose 106, Calcium 8.6, Magnesium 2.2, Total Bilirubin 0.50, Triglycerides 60, Cholesterol 129, LDL Cholesterol 66, VLDL Cholesterol 12, HDL Cholesterol 51 05/23/21 05:00: PT 16.9 H, INR 1.5 05/23/21 05:00: Phosphorus 2.5 05/23/21 05:00: APTT 31.1 Rhythm: EKG: Normal sinus rhythm with no acute changes occasional premature ventricular complexes noted ECHO: Stress Test: Cardiac Cath: PCI: CT Surgery: Holter monitor: EPS: PPM: CXR: Chest CT Scan: Radiography Diagnostic Testing: Radiology Impression Chest X-Ray 05/22/21 23:49 IMPRESSION: No acute cardiopulmonary disease. Electronically Signed: Sharmila Brennan MD at 0:14 EDT , Service support ,
[2021-05-23] MEDS: Carvedilol 6.25 MG Tablet PO (08:10)
[2021-05-23] MEDS: Clindamycin HCl 150 MG Capsule 300 MG PO ×2 (08:11→14:27)
[2021-05-23] MEDS: Aspirin E.C. 81 MG Tablet PO (08:11)
[2021-05-23] MEDS: Isosorbide Mononitrate 30 MG Tablet PO (08:11)
--- NOTE | 2021-05-23 11:33 | PCS.PANDOC ---
PANDEMIC DOCUMENTATION INITIATED: Date: 05/23/2021 Time: 3029
--- NOTE | 2021-05-23 11:39 | CL.D_ITS ---
Patient Name: LUCRETIA LEAL Study Date: 05/23/2021 Performing: Abhijeet Mayberry MD Ht: 66.92 inches 170 cm : 1935 Wt: 123.46 lbs 56 kg Age: 85 Gender: female BSA: 1.65 PROCEDURE(S) PERFORMED [id number]-XPZ/COR/LV CLINICAL PROFILE AND INDICATIONS Indications: Worsening Angina Heart Failure: None Stress/Imaging Stress/Image Study Performed: No CONCLUSIONS Non obstructive coronary arteries RECOMMENDATIONS Medical therapy DESCRIPTION OF PROCEDURE The patient arrived to the procedure lab. The risks and benefits of the procedure as well as a full d escription of our services here and current unavailability of surgical backup were fully explained to the patient and/or their significant other prior to the catheterization. The Timeout was completed, verifying the correct patient and procedure. The patient's procedural site was prepped and draped in the usual fashion. Local anesthetic was given subcutaneously to right radial region with Lidocaine 2% . Using a modified Seldinger technique, arterial access was obtained via the right radial artery, a 6 Fr sheath was inserted. Left Coronary Artery selective angiography was performed in multiple views u sing a 5 Fr. 4.0 Orrington catheter. Right Coronary Artery selective angiography was then performed in mu ltiple views using a 5 Fr. 4.0 Orrington catheter. Left Ventriculography was performed in SANTANA projection using a 5 Fr. Pigtail catheter. LV to AO pullback pressures were then recorded.The arterial sheath was pulled and a TR Band was applied for hemostasis CORONARY ANGIOGRAPHY DOMINANCE: Left Dominant LEFT HEART ASSESSMENT Left Ventricular Ejection Fraction: by LV Gram 60 % Normal LV wall motion Normal Left Ventricular systolic function Normal Left Ventricular systolic function LEFT MAIN: Angiographically normal LEFT ANTERIOR DESCENDING ARTERY: Angiographically normal CIRCUMFLEX ARTERY: Angiographically normal RIGHT CORONARY ARTERY: Angiographically normal VALVE FINDINGS: Aortic Valve Calcification - mild AORTIC ROOT: Calcified COMPLICATIONS No Complications PROCEDURE MEDICATIONS Fentanyl 50 mcg IV Versed 1 mg IV Oxygen: 2 L/min via nasal cannula Heparin given IA 05/23/2021 11:23:33 SUMMARY OF HEMODYNAMIC DATA Time AIR REST ECG 11:07:00 AO 105/69 (85) SA 11:25:08 LV 79/-2, 2 11:31:57 LV 113/-4, 9 11:32:04 LV 111/5, 7 11:33:11 LV 111/6, 7 11:33:16 AO 121/67 (90) 11:33:21 Signed By Abhijeet Mayberry MD On 05/23/2021 11:38:44 AM Abhijeet Mayberry MD
--- NOTE | 2021-05-23 11:57 | PCM.DC ---
Discharge Instructions Diet Discharge Diet: No restrictions Activity Discharge Activity: Return to Normal Activity Weight Bearing Status: Weight bearing as tolerated Dressing / Incision Call your doctor if you observe: Fever of 101 or Higher, Numbness or Tingling, Shortness of breath, Dizziness, Chest pain, Increased palpitations (irregular heartbeat) and Calf discomfort Follow Up Care Please Follow Up With: Primary care provider When: Within the next two weeks. Test Results: Test results from this visit will be discussed in further detail at your follow-up appointment, if applicable. Discharge Plan Admission Admit Date/Time: 05/23/21 02:27 Attending Provider: Doe Shane Primary Care Provider: Elmo Burdick Consulting Providers: Abhijeet Mayberry Discharge Orders/Prescriptions Prescriptions: New aspirin 81 mg tablet,chewable 81 mg PO DAILY Qty: 30 RF: 0 Continued levothyroxine 75 mcg tablet 75 mcg PO DAILY RF: 0 carvedilol 12.5 mg tablet 6.25 mg PO BID RF: 0 atorvastatin 20 MG tablet 20 mg PO QHS RF: 0 ferrous sulfate 325 mg (65 mg iron) tablet 325 mg PO BID RF: 0 cyanocobalamin (vitamin B-12) 1,000 MCG tablet 1,000 mcg PO DAILY RF: 0 potassium chloride 10 MEQ tablet extended release 10 meq PO DAILY RF: 0 warfarin 5 mg Tablet 5 mg PO TUTH RF: 0 warfarin 4 mg Tablet 4 mg PO SUMOWEFRSA RF: 0 isosorbide mononitrate 30 mg tablet extended release 24 hr 30 mg PO DAILY RF: 0 Referrals / Follow Up: Elmo Burdick DO [Primary Care Provider] - Within 2 Weeks Abhijeet Mayberry MD [STAFF PHYSICIAN] - Within 2 Weeks Disposition Disposition (needs filled in before D/C Order can be placed): Home, Self Care
[2021-05-23] MEDS: 0.9% Normal Saline 1,000 ML 75 ML IV (11:58)
--- NOTE | 2021-05-23 12:08 | CASEMGMT ---
MARGARET FERGUSON assessment: Face to Face with patient for initial transition planning/care coordination assessment. MARGARET FERGUSON introduced self and role at [facility], pt voices understanding and consents to assessment. Pt is lying in bed on room air s/p heart cath without intervention. Pt is A/Ox4 and answers all questions appropriately. Care providers, pharmacy, and demographics verified/updated. Presentation: Midsternal CP thru back for last hour Admitting dx: NSTEMI PCP: [facility] Specialists: Pt states no current specialists. [facility]erred [facility]acy: [facility] Insurance: [facility] Prescription Benefit: Yes Living Will/HPOA: Pt has LW/HPOA and is aware that they are on file at [facility]. Pt's son, Philip Avila, is HPOA. LNOK: Philip Avila, son/HPOA; Erin Avila, daughter; Kristin Mauro, friend Living Arrangements: Pt states lives with twin sister in [facility] and states no concerns at home. Pt is independent w/ ADL's. Pt states has a cleaning lady. Transportation: Pt states her friend, Kristin, drives and states no transportation concerns. DME/HHC: Pt states has a walker and states no need for any further DME. Pt states no hx of HHC or SNF. Pt states no concerns with going home at time of discharge. Pt is retired. Pt states does not smoke cigarettes and rarely drinks ETOH. Pt voices no further concerns/needs. CM to follow for any further discharge planning/needs. Advised pt to ask for CM if any further questions/concerns/needs arise, voices understanding. Pt Goal: Home Plan: [place] MARGARET FERGUSON
[2021-05-23] MEDS: Ferrous Sulfate 325 MG Tablet PO (12:39)
--- NOTE | 2021-05-23 14:24 | PCM.DC.SUM ---
Documented by User: Derrick PAZ 05/23/21 14:33 Providers Date of Admission: 05/23/21 Primary Care Physician: Dr. Elmo Burdick, Consultations 05/23/21 04:06 Consult: Cardiology Routine Consulting Provider: Abhijeet Mayberry Reason for Consult: NSTEMI EMERGENT Consult: No MD Notified: Yes Date Notified: 05/23/21 Time Notified: 06:56 Method of Notification: Text Reason For Visit: NSTEMI Diagnosis Discharge Diagnosis (1) NSTEMI, initial episode of care: Status: Acute Code(s): I21.4 - Non-ST elevation (NSTEMI) myocardial infarction (2) History of permanent cardiac pacemaker placement: Status: Chronic Code(s): Z95.0 - Presence of cardiac pacemaker (3) Essential (primary) hypertension: Status: Chronic Code(s): I10 - Essential (primary) hypertension Medications at Discharge Home Medications atorvastatin 20 mg PO QHS 08/20/13 cyanocobalamin (vitamin B-12) 1,000 mcg PO DAILY 11/02/18 potassium chloride 10 meq PO DAILY 11/02/18 levothyroxine 75 mcg tablet 75 mcg PO DAILY 04/08/19 warfarin 4 mg PO SUMOWEFRSA 03/30/21 warfarin 5 mg PO TUTH 03/30/21 carvedilol 12.5 mg tablet 6.25 mg PO BID tab 04/16/21 ferrous sulfate 325 mg PO DAILY #0 tab 05/23/21 isosorbide mononitrate 30 mg PO DAILY 05/23/21 Hospital Course Procedures Cardiac catheterization Summary of Care Provided Minutes Spent on Discharge: 35 Hospital Course: Disposition: Patient to discharge home. 1) NSTEMI Cardiac enzymes elevated. Heparin drip not initiated during admission due to INR being therapeutic as patient is anticoagulated on Coumadin. Cardiac catheterization performed on 05/23 was unremarkable and revealed normal coronary arteries with tortuous vessels. No significant obstruction noted. Recommendation from cardiology was to follow-up as an outpatient. Patient is to follow-up with cardiology and PCP within the next 2 weeks. 2) HTN Continue carvedilol and isosorbide mononitrate. 3) hypothyroidism TSH within normal limits. Continue levothyroxine. 4) hyperlipidemia Continue statin. 5) subtherapeutic INR INR was 1.5 this morning, goal between 2 and 3. Patient is to continue current dose of Coumadin and obtain follow-up PT/INR on 05/25/2021. Patient is to follow-up with PCP within the next 2 weeks. Patient seen by Derrick Adams PA-C, under the supervision of Dr. Shane. Physical Exam Narrative Patient is an 85-year-old female comfortably resting in bed, alert and oriented x3. Patient reports resolution of her chest pain from admission. Denies development of any new symptoms overnight. Does not appear to be in acute distress. Const alert, oriented x3 and no apparent distress HEENT normocephalic, head/scalp atraumatic and hearing grossly normal bilaterally Eyes PERRL, EOMs intact bilaterally and conjunctivae normal Neck no lymphadenopathy, supple and no JVD Resp normal respiratory effort, no retractions, no use of accessory muscles and clear to auscultation bilaterally Cardio regular rate, regular rhythm, no murmurs and no JVD GI normal to inspection, nondistended, normoactive bowel sounds, soft to palpation and non-tender Extremity normal to inspection, full ROM and no clubbing, cyanosis or edema Skin no rashes or lesions noted, no wounds and skin turgor normal Neuro CN's II-XII intact bilaterally Psych affect normal Medical Records Data Medical Nutrition Assessment Dietitian: Malnutrition Criteria Met Start: 05/23/21 11:43 Freq: Status: Active Protocol: Document 05/23/21 11:43 RMA (Rec: 05/23/21 11:43 RMA [id number]) Nutrition Malnutrition Evidence of Malnutrition Exists Yes Malnutrition (severe): Acute Illness/Injury,Chronic Evidenced By Suboptimal Energy Intake ( Severe),Weight Loss (Moderate) ,Physical Changes (Moderate) Clinical Problem Acute Disease or Injury Related Malnutrition Etiology Severe pro/kathy malnutrition in the context of acute on chronic disease related to inadequate oral intake; chewing difficulty; advanced age Signs/Symptoms as evidenced by ~5% wt loss x past 2 months, ~8% wt loss x 12 months, PO meeting less than 50% estimated nutrition needs x past 1-2 months, BMI 19.3 and muscle/fat wasting/+ Nutrition focused physical exam showing wasting in the face, orbitals and temporal areas. Status Active Problem Recommendation Dietitian Recommendations/Changes Rec Regular/no added salt diet given signs/symptoms of malnutrition as diet advanced post cardiac cath. Rec ensure compact TID w/ meals as diet advanced. Adjust ONS as needed to optimize intake and prevent further wt loss. Weight / BMI Weight Weight: 123 lb 0.287 oz Body Mass Index (BMI) 19.3 ABG / Lab / Microbiology Data Result Diagrams: 05/23/21 05:00 05/23/21 05:00 Laboratory: Laboratory Results - last 24 hr 05/22/21 23:10: WBC 7.1, RBC 4.47, Hgb 13.1, Hct 41.0, MCV 91.7, MCH 29.3, MCHC 32.0, RDW Std Deviation 42.3, RDW Coeff of Duc 12.5, Plt Count 271, MPV 9.4, Immature Gran % (Auto) 0.100, Neut % (Auto) 52.6, Lymph % (Auto) 37.1, [place] % (Auto) 8.2, Eos % (Auto) 1.7, Baso % (Auto) 0.3, Absolute Neuts (auto) 3.7, Absolute Lymphs (auto) 2.62, Nucleated RBC % 0 05/22/21 23:10: Sodium 143, Potassium 4.1, Chloride 108 H, Carbon Dioxide 29.0, Anion Gap 6, BUN 19 H, Creatinine 0.78, Estim Creat Clear Calc 38.57, Est GFR (MDRD) Af Amer 90, Est GFR (MDRD) Non-Af 74, BUN/Creatinine Ratio 24.3 H, Glucose 134 H, Calcium 9.4, Troponin I High Sens 582 H* 05/23/21 01:10: Troponin I High Sens 570 H* 05/23/21 02:44: PT 24.1 H, INR 2.3 05/23/21 05:00: WBC 7.3, RBC 4.47, Hgb 13.2, Hct 42.8, MCV 95.7, MCH 29.5, MCHC 30.8 L, RDW Std Deviation 43.6, RDW Coeff of Duc 12.3, Plt Count 218, MPV 9.2, Immature Gran % (Auto) 0.300, Neut % (Auto) 71.6 H, Lymph % (Auto) 18.3 L, Greeley % (Auto) 7.9, Eos % (Auto) 1.4, Baso % (Auto) 0.5, Absolute Neuts (auto) 5.2, Absolute Lymphs (auto) 1.34, Nucleated RBC % 0 05/23/21 05:00: Sodium 141, Potassium 3.8, Chloride 108 H, Carbon Dioxide 26.0, Anion Gap 7, BUN 16, Creatinine 0.72, Estim Creat Clear Calc 36.23, Est GFR (MDRD) Af Amer 99, Est GFR (MDRD) Non-Af 82, BUN/Creatinine Ratio 22.3 H, Glucose 106, Calcium 8.6, Magnesium 2.2, Total Bilirubin 0.50, AST 19, ALT 13, Alkaline Phosphatase 75, Total Protein 6.8, Albumin 2.8 L, Globulin 4.0, Albumin/Globulin Ratio 0.7 L, Triglycerides 60, Cholesterol 129, LDL Cholesterol 66, VLDL Cholesterol 12, HDL Cholesterol 51 05/23/21 05:00: PT 16.9 H, INR 1.5 05/23/21 05:00: Phosphorus 2.5, Troponin I High Sens 573 H* 05/23/21 05:00: APTT 31.1 Radiography Diagnostic Testing: Radiology Impression Chest X-Ray 05/22/21 23:49 IMPRESSION: No acute cardiopulmonary disease. Electronically Signed: Sharmila Brennan MD at 0:14 EDT , Service support , D/C Instructions Discharge Diet: No restrictions Weight Bearing Status: Weight bearing as tolerated Call your doctor if you observe: Fever of 101 or Higher, Numbness or Tingling, Shortness of breath, Dizziness, Chest pain, Increased palpitations (irregular heartbeat) and Calf discomfort Please Follow Up With: Primary care provider When: Within the next two weeks. Meaningful Use Info Meaningful Use Diagnoses (Choose all that apply): None applicable Discharge Plan Admission Admit Date/Time: 05/23/21 02:27 Attending Provider: Doe Shane Primary Care Provider: Elmo Burdick Consulting Providers: Abhijeet Mayberry Discharge Orders/Prescriptions Prescriptions: Continued levothyroxine 75 mcg tablet 75 mcg PO DAILY RF: 0 carvedilol 12.5 mg tablet 6.25 mg PO BID RF: 0 atorvastatin 20 MG tablet 20 mg PO QHS RF: 0 cyanocobalamin (vitamin B-12) 1,000 MCG tablet 1,000 mcg PO DAILY RF: 0 potassium chloride 10 MEQ tablet extended release 10 meq PO DAILY RF: 0 warfarin 5 mg Tablet 5 mg PO TUTH RF: 0 warfarin 4 mg Tablet 4 mg PO SUMOWEFR RF: 0 isosorbide mononitrate 30 mg tablet extended release 24 hr 30 mg PO DAILY RF: 0 Changed ferrous sulfate 325 mg (65 mg iron) tablet 325 mg PO DAILY Qty: 0 RF: 0 Other Ambulatory Orders: Prothrombin Time w/INR (Routine) Timeframe: 2 Days Facility: [facility] - Location: Laboratory Ordered By: Derrick PAZ Referrals / Follow Up: Dee Ch [Registered Nurse] - 06/29/21 1:00 pm (pacemaker check) Abhijeet Mayberry MD [STAFF PHYSICIAN] - Within 2 Weeks Elmo Burdick DO [Primary Care Provider] - Within 2 Weeks Mira Temple NP, DOT COMPLIANCE MANAGER-C [Nurse Practitioner] - 05/28/21 9:00 am Disposition Disposition (needs filled in before D/C Order can be placed): Home, Self Care Documented by User: Dr. Doe Shane MD 05/23/21 17:22 Providers Date of Admission: 05/23/21 Date of Discharge: 05/23/21 Reason For Visit: NSTEMI Medications at Discharge Home Medications atorvastatin 20 mg PO QHS 08/20/13 cyanocobalamin (vitamin B-12) 1,000 mcg PO DAILY 11/02/18 potassium chloride 10 meq PO DAILY 11/02/18 levothyroxine 75 mcg tablet 75 mcg PO DAILY 04/08/19 warfarin 4 mg PO SUMOWEFRSA 03/30/21 warfarin 5 mg PO TUTH 03/30/21 carvedilol 12.5 mg tablet 6.25 mg PO BID tab 04/16/21 ferrous sulfate 325 mg PO DAILY #0 tab 05/23/21 isosorbide mononitrate 30 mg PO DAILY 05/23/21 Hospital Course Summary of Care Provided Hospital Course: This patient was seen in conjunction with JACKSON Kuo. I have independently interviewed and examined the patient and reviewed pertinent history, examination findings, laboratory and plan of management. I have reviewed the note and agree with the documented findings with the few additional points. In brief, patient is admitted for chest pain with radiation to back. Patient has history of paroxysmal A. fib, TIA, sick sinus syndrome, carotid artery stenosis and history of left breast cancer. Patient did not have shortness of breath. Patient was in PCU. Troponins were elevated. Twelve-lead EKG did not show any ST-T changes consistent with ischemia. Patient underwent cardiac cath and found no obstructive coronary artery disease. Patient is on Coumadin for history of paroxysmal A. fib, carotid stenosis and INR subtherapeutic. Resume Coumadin. Discharge medication reconciliation done. Discharge follow-up instructions completed. Discharge process discussed with the patient and all questions were answered to patient's satisfaction. Total time spent, exact 35 minutes on discharge meds reconciliation, examination, coordination of care with nurses and ancillary staff, review of imaging and blood test and discussion with the patient on follow-up instructions Patient was admitted as inpatient but was discharged because of sooner recovery than expected at time of admission. I have discussed my assessment with JACKSON Kuo and orders have been reviewed. Physical Exam Narrative No chest pain. No shortness of breath. Physical exam General: Alert, Oriented x3, Cooperative HEENT: Atraumatic, PERRLA, EOMI, Normocephalic Oral: No Gingival or Mucosal Lesions/ Ulcerations Neck: Supple, No JVD, Negative Carotid Bruits Lungs: Air entry diminished in bilateral lung bases. No crepitation/rhonchi Cardiovascular: Regular rate, Regular Rhythm, Normal S1, Normal S2, No murmurs Abdomen: Bowel Sounds Present, Soft, Non Tender, Non-Distended : No renal angle tenderness. No suprapubic tenderness. Extremities: Right wrist cardiac access site, no hematoma or active bleeding. No edema, Capillary Refill Less than 3 Seconds Skin: No rashes, No breakdown Musculoskeletal: No Tenderness to Palpation of Joints or Extremities Neurological: Cranial nerves II-XII grossly intact, DTR 2+/4 and Symmetrical, Neuro grossly intact Psych/Mental Status: Normal Affect, Appropriate. ABG / Lab / Microbiology Data Result Diagrams: 05/23/21 05:00 05/23/21 05:00 Discharge Plan Admission Admit Date/Time: 05/23/21 02:27 Attending Provider: Doe Shane Primary Care Provider: Elmo Burdick Consulting Providers: Abhijeet Mayberry Discharge Orders/Prescriptions Prescriptions: Continued levothyroxine 75 mcg tablet 75 mcg PO DAILY RF: 0 carvedilol 12.5 mg tablet 6.25 mg PO BID RF: 0 atorvastatin 20 MG tablet 20 mg PO QHS RF: 0 cyanocobalamin (vitamin B-12) 1,000 MCG tablet 1,000 mcg PO DAILY RF: 0 potassium chloride 10 MEQ tablet extended release 10 meq PO DAILY RF: 0 warfarin 5 mg Tablet 5 mg PO TUTH RF: 0 warfarin 4 mg Tablet 4 mg PO SUMOWEFRSA RF: 0 isosorbide mononitrate 30 mg tablet extended release 24 hr 30 mg PO DAILY RF: 0 Changed ferrous sulfate 325 mg (65 mg iron) tablet 325 mg PO DAILY Qty: 0 RF: 0 Other Ambulatory Orders: Prothrombin Time w/INR (Routine) Timeframe: 2 Days Facility: [facility] - Location: Laboratory Ordered By: Derrick PAZ Referrals / Follow Up: Dee Ch [Registered Nurse] - 06/29/21 1:00 pm (pacemaker check) Abhijeet Mayberry MD [STAFF PHYSICIAN] - Within 2 Weeks Elmo Burdick DO [Primary Care Provider] - Within 2 Weeks Mira Temple NP, DOT COMPLIANCE MANAGER-C [Nurse Practitioner] - 05/28/21 9:00 am Disposition Disposition (needs filled in before D/C Order can be placed): Home, Self Care Charges/Coding Visit Charges Inpatient E&M: 37702 Disch Hosp
--- NOTE | 2021-05-23 14:47 | PHA.DC.MR ---
Pharmacy Service has performed discharge medication reconciliation for this patient. The patient's discharge medication list was reviewed for discrepancies and discrepancies were resolved. This [facility] spoke to JACKSON Adams regarding INR of 1.5. Plan was to give 6mg warfarin dose before D/C and INR check on Friday. Dr. Shane then decided to give a 4mg dose instead of 6mg before D/C. Follow up INR still planned for Friday. Home Medications atorvastatin 20 mg PO QHS 08/20/13 cyanocobalamin (vitamin B-12) 1,000 mcg PO DAILY 11/02/18 potassium chloride 10 meq PO DAILY 11/02/18 levothyroxine 75 mcg tablet 75 mcg PO DAILY 04/08/19 warfarin 4 mg PO SUMOWEFRSA 03/30/21 warfarin 5 mg PO TUTH 03/30/21 carvedilol 12.5 mg tablet 6.25 mg PO BID tab 04/16/21 ferrous sulfate 325 mg PO DAILY #0 tab 05/23/21 isosorbide mononitrate 30 mg PO DAILY 05/23/21
== END 2021-05-23 16:40 | disposition home or self-care (01) | DRG 280 ==
LOC: ED 05-23 02:29 → PCU 05-23 02:41
PROVIDERS: Admitting Provider Internal Medicine; Emergency Provider Emergency Medicine; PCP Student in an Organized Health Care Education/Training Program; Visit Provider Internal Medicine
DX: I21.4 Non-ST elevation (NSTEMI) myocardial infarction (principal); E43 Unspecified severe protein-calorie malnutrition; I49.5 Sick sinus syndrome; I65.22 Occlusion and stenosis of left carotid artery; I20.0 Unstable angina; I10 Essential (primary) hypertension; I48.0 Paroxysmal atrial fibrillation; E03.9 Hypothyroidism, unspecified; E78.5 Hyperlipidemia, unspecified; I25.2 Old myocardial infarction; Z66 Do not resuscitate; Z95.0 Presence of cardiac pacemaker; Z79.01 Long term (current) use of anticoagulants; Z79.899 Other long term (current) drug therapy; Z87.891 Personal history of nicotine dependence; Z86.73 Personal history of transient ischemic attack (TIA), and cerebral infarction without residual deficits
CPT/HCPCS: 36415; 71045; 80048; 80053; 80061; 83735; 84100; 84484; 85025; 85610; 85730; 93005; 93458; 97802; 99152; 99153; 99251; 99285; J7030; Q9967; A4216; C1769; C1894; G0463

== ENCOUNTER 2021-07-24 08:47 | Emergency (ER) | payer MEDICARE, OTHER, SELFPAY ==
[2021-07-24 08:49] VITALS: BP 123/104; PULSE 105; RESP 16; TEMP 36; O2SAT 95; BMI 19.8
--- NOTE | 2021-07-24 09:05 | RAD_ITS ---
STUDY: X-RAY CHEST REASON FOR EXAM: Female, 85 years old. Chest pain TECHNIQUE: Single AP portable view of the chest. COMPARISON: Comparison is made with prior study dated 05/22/2021. FINDINGS: EKG electrodes are seen. There is hyperinflation of the lungs consistent with chronic obstructive lung disease (COPD). There is no demonstrated pleural abnormality. Normal size heart. A left-sided dual-chamber pacemaker is seen. Normal mediastinum and roc. Normal visualized pulmonary arteries. There is atherosclerotic calcification of the aortic arch with tortuosity. Normal visualized thoracic spine. Normal visualized ribs, clavicles, and shoulders. There is no demonstrated abnormality of the visualized soft tissue structures of the upper abdomen. RAD/Chest 1 View (Portable) IMPRESSION: Hyperinflation. The lungs are clear. Electronically Signed: Jj Good MD at 10:03 EST , Service support ,
--- NOTE | 2021-07-24 09:05 | EKG12_ITS ---
Test Reason : HYPERTENSON Blood Pressure : / mmHG Vent. Rate : 078 BPM Atrial Rate : 078 BPM P-R Int : 184 ms QRS Dur : 126 ms QT Int : 396 ms P-R-T Axes : 081 -72 028 degrees QTc Int : 451 ms Sinus rhythm with occasional Premature ventricular complexes Left axis deviation Right bundle branch block Abnormal ECG Confirmed by DONNY CRAIG, KLEVER ([id number]), video effects editor ZABRINA ALEXANDER ([id number]) on 07/26/2021 11:39:55 AM Referred By: DARRYL Confirmed By:KLEVER HINES MD
--- NOTE | 2021-07-24 09:06 | EDS_ITS ---
HPI History of Present Illness Chief Complaint: Hypertension Narrative Narrative: Patient presenting for evaluation secondary to not feeling right and having hypertension. Patient has a underlying history of atrial fibrillation, past history of coronary artery disease with ST elevation myocardial infarction. Patient states that she woke up today and she was feeling the worst she has felt. She was unable to really qualify this for me, denied that it was associated with chest pain or shortness of breath but she did state that she felt lightheaded. It was before she took her blood pressure medications, patient states that she took her blood pressure x2 and noted to be in the 190s and 185 systolic range. Patient then immediately presented to the emergency department. Patient also states that her blood has been running thin recently with an INR 3.5 last week and she was due for another INR check due today. She denies any bleeding signs or symptoms. She denies any infectious signs or symptoms. Review of systems otherwise negative. [facility] Medical History Abnormal stress test Acute GI bleeding Anticoagulated on Coumadin Atrial fibrillation with RVR Back pain Cerebrovascular disease Chronic antral gastritis CVA (cerebral vascular accident) Elevated blood pressure reading in office with white coat syndrome, without diagnosis of hypertension Elevated troponin (06/16/20) Elevation of cardiac enzymes Essential (primary) hypertension Gastric polyp History of breast cancer History of non-ST elevation myocardial infarction (NSTEMI) (08/23/18) History of TIA (transient ischemic attack) (06/16/20) History of vasculitis Hypercoagulable state Hyperlipidemia Hypokalemia Hypothyroidism Lower gastrointestinal bleeding Multiple premature ventricular complexes Non-ischemic cardiomyopathy Non-ST elevation IA (NSTEMI) NSTEMI, initial episode of care Orthostatic hypotension Orthostatic hypotension Osteoarthritis of spine Paroxysmal atrial fibrillation Patent foramen ovale Pre-syncope Right bundle branch block (RBBB) Sick sinus syndrome Stenosis of left carotid artery Syncope Vasculitis Home Medications atorvastatin 20 mg PO QHS 08/20/13 [History Last Taken 03/29/21] cyanocobalamin (vitamin B-12) 1,000 mcg PO DAILY 11/02/18 [History Last Taken 03/30/21] potassium chloride 10 meq PO DAILY 11/02/18 [History Last Taken 03/30/21] levothyroxine 75 mcg tablet 75 mcg PO DAILY 04/08/19 [History Last Taken 03/30/21] warfarin 4 mg PO SUMOWEFRSA 03/30/21 [History Last Taken 03/29/21] warfarin 5 mg PO TUTH 03/30/21 [History Last Taken 03/29/21] carvedilol 12.5 mg tablet 6.25 mg PO BID tab 04/16/21 [History Last Taken Unknown] ferrous sulfate 325 mg PO DAILY #0 tab 05/23/21 [Rx Last Taken 03/30/21] isosorbide mononitrate 30 mg PO DAILY 05/23/21 [History Last Taken Unknown] loratadine 10 mg tablet 10 mg PO DAILY tab 06/19/21 [History Last Taken Unknown] Allergy/AdvReac Type Severity Reaction Status Date / Time omeprazole Allergy Severe Swelling Verified 07/24/21 08:49 lansoprazole Allergy Intermediate edema Verified 07/24/21 08:49 levofloxacin [From Levaquin] Allergy Angioedema Verified 07/24/21 08:49 lisinopril Allergy Swelling Verified 07/24/21 08:49 Penicillins Allergy Itching Verified 07/24/21 08:49 Sulfa (Sulfonamide Allergy Angioedema Verified 07/24/21 08:49 Antibiotics) amlodipine AdvReac Severe severe Verified 07/24/21 08:49 hypotension Family History Father Myocardial infarction Sister CAD (coronary artery disease) Stents Brother CVA (cerebral vascular accident) Surgical History H/O cardiac catheterization (08/25/18) History of colonoscopy (08/2018) History of esophagogastroduodenoscopy (EGD) (08/2018) History of left heart catheterization (05/23/21) History of open reduction and internal fixation (ORIF) procedure History of permanent cardiac 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) History of right mastectomy Social History Smoking Status: Former smoker Tobacco: How many years used: 20 how long ago did patient quit smokin years ago second hand exposure: No alcohol intake: current alcohol intake frequency: holidays/special occasions only substance use type: does not use caffeine: No ROS ROS ED Constitutional Constitutional ED: Denies chills or fever(s) ENT ENT ED: Denies rhinorrhea Cardiovascular Cardiovascular: Reports other Details: Lightheadedness Respiratory/Chest Respiratory/Chest: Denies cough or dyspnea Gastrointestinal Gastrointestinal: Denies abdominal pain, diarrhea, nausea or vomiting Genitourinary Genitourinary ED: Denies dysuria or hematuria Musculoskeletal Musculoskeletal: Denies back pain Integumentary Denies rash Neurologic Neurologic: Denies paresthesias or weakness Psychiatric Psychiatric: Denies depression Endocrine Endocrinology: Denies fatigue Allergic/Immunologic Allergic/Immunologic ED: Denies urticaria EXAM Physical Exam Const Vital Signs: 07/24/21 08:49 07/24/21 09:57 07/24/21 11:24 Temperature 96.8 F L Temperature Source Temporal Pulse Rate 105 H 71 69 Respiratory Rate 16 23 H 25 H Respiratory Pattern Normal Blood Pressure 123/104 H 153/89 H 178/96 H Blood Pressure Mean 110 110 123 Pulse Ox 95 93 96 Oxygen Delivery Method Room Air Room Air Room Air Positive well nourished and well developed Constitutional Narrative: Elderly female no acute distress General Appearance ED: well developed and NAD HEENT Reports moist mucous membranes Negative for trauma or tenderness Eyes EOMs intact bilaterally Neck no lymphadenopathy, supple and no JVD Chest Wall inspection of chest normal Resp normal respiratory effort and clear to auscultation bilaterally Cardio regular rate, no murmurs and peripheral pulses 2+ throughout Rate: other Other Details: Rate controlled and irregular, 2+ radial pulses GI normal to inspection, nondistended, normoactive bowel sounds, non-tender and no masses Palpation: soft Back/Spine normal to inspection Extremity normal to inspection General Extremety ED: Negative for tenderness Neuro oriented x3 and no sensory deficits noted Sensorium / Orientation: alert Motor Exam: strength 5/5 throughout Psych mental status grossly normal Skin no rashes or lesions noted MDM MDM MDM Narrative Medical decision making narrative: Patient presented for evaluation secondary to feeling weird and having some hypertension. Patient's blood pressure was initially elevated in the emergency department, did have improvement without further intervention. EKG was noted to be unchanged from prior EKG in May. CBC unremarkable, chemistry shows a therapeutic INR at 2.4. Chemistry shows no significant electrolyte abnormality. Troponin was noted to be elevated at 272, 2-hour delta troponin was ordered and was found to be stable. Chest x-ray by my personal review as well as radiology demonstrates no acute cardiopulmonary pathology. I reviewed patient's records, she had a recent hospital admission back in May where she had cardiac catheterization that showed clean coronaries, a good ejection fraction, and did not require any sort of intervention. Patient is asymptomatic currently with improving blood pressures and stable albeit elevated high-sensitivity troponins. I discussed this with Dr. Lira, we are in agreement that the patient would not benefit from any sort of inpatient management given her recent extensive work-up. She is asymptomatic she has stable troponins. Patient will follow up with Dr. Mayberry as an outpatient. Patient was discharged in stable condition. Lab Data Labs: Laboratory Results - last 24 hr 07/24/21 07/24/21 07/24/21 09:16 09:16 09:16 WBC 4.5 RBC 4.58 Hgb 13.2 Hct 41.4 MCV 90.4 MCH 28.8 MCHC 31.9 L RDW Std Deviation 42.5 RDW Coeff of Duc 12.8 Plt Count 240 MPV 9.0 Immature Gran % (Auto) 0.000 Neut % (Auto) 50.4 Lymph % (Auto) 36.9 [place] % (Auto) 9.4 Eos % (Auto) 2.9 Baso % (Auto) 0.4 Absolute Neuts (auto) 2.2 Absolute Lymphs (auto) 1.64 Nucleated RBC % 0 PT 25.4 H INR 2.4 Sodium 143 Potassium 4.0 Chloride 110 H Carbon Dioxide 31.0 Anion Gap 2 L BUN 10 Creatinine 0.67 Estim Creat Clear Calc 37.40 Est GFR (MDRD) Af Amer 108 Est GFR (MDRD) Non-Af 89 BUN/Creatinine Ratio 15.0 Glucose 112 H Calcium 9.2 Troponin I High Sens 272 H* 07/24/21 11:20 WBC RBC Hgb Hct MCV MCH MCHC RDW Std Deviation RDW Coeff of Duc Plt Count MPV Immature Gran % (Auto) Neut % (Auto) Lymph % (Auto) [place] % (Auto) Eos % (Auto) Baso % (Auto) Absolute Neuts (auto) Absolute Lymphs (auto) Nucleated RBC % PT INR Sodium Potassium Chloride Carbon Dioxide Anion Gap BUN Creatinine Estim Creat Clear Calc Est GFR (MDRD) Af Amer Est GFR (MDRD) Non-Af BUN/Creatinine Ratio Glucose Calcium Troponin I High Sens 271 H* Radiography Chest X-Ray - ED: Read by ED Physician and Normal Diagnostic Testing: Clinical Impression(s) from Imaging Studies Chest X-Ray 07/24/21 09:05 IMPRESSION: Hyperinflation. The lungs are clear. Electronically Signed: Jj Good MD at 10:03 EST , Service support , EKG Initial EKG: Attestation: I personally reviewed and interpreted this EKG as follows: (Sinus rhythm with occasional PACs noted, right bundle branch block morphology, no gross changes from prior EKG of 05/23/2021. No acute ischemia or arrhythmia.) Discharge Plan Triage Chief Complaint: Hypertension ED Provider: Adan Leyva Dx/Rx/DC Orders Clinical Impression: Hypertension, Elevated troponin Instructions: ED Hypertension, Established Prescriptions: No Action levothyroxine 75 mcg tablet 75 mcg PO DAILY RF: 0 loratadine 10 mg tablet 10 mg PO DAILY RF: 0 carvedilol 12.5 mg tablet 6.25 mg PO BID RF: 0 atorvastatin 20 MG tablet 20 mg PO QHS RF: 0 cyanocobalamin (vitamin B-12) 1,000 MCG tablet 1,000 mcg PO DAILY RF: 0 potassium chloride 10 MEQ tablet extended release 10 meq PO DAILY RF: 0 warfarin 5 mg Tablet 5 mg PO TUTH RF: 0 warfarin 4 mg Tablet 4 mg PO SUMOWEFRSA RF: 0 isosorbide mononitrate 30 mg tablet extended release 24 hr 30 mg PO DAILY RF: 0 ferrous sulfate 325 mg (65 mg iron) tablet 325 mg PO DAILY Qty: 0 RF: 0 Primary Care Provider: Elmo Burdick Referrals: Abhijeet Mayberry MD [STAFF PHYSICIAN] - 1-2 Weeks Elmo Burdick DO [Primary Care Provider] - Disposition Disposition: Home, Self Care
[2021-07-24 09:27] LABS: Absolute Lymphocyte Count 1.64 X10^3/uL (0.83-4.51); Absolute Neutrophil Count 2.2 X10^3/uL (2.0-7.7); Basophil# 0.02 X10^3/uL; Basophil% 0.4 % (0-1); Eosinophil# 0.13 X10^3/uL; Eosinophils% 2.9 % (0-5); Hematocrit 41.4 % (37-47); Hemoglobin 13.2 g/dL (12.0-15.0); Lymphocyte # 1.64 X10^3/ul (0.83-4.51); Lymphocyte % 36.9 % (19-41); Mean Corp Hgb Conc 31.9 g/dL (32-36); Mean Corpuscular Hgb 28.8 pg (27.0-32.0); Mean Corpuscular Volume 90.4 fL (81-99); Monocyte# 0.42 X10^3/uL; Monocyte% 9.4 % (0-10); NRBC Flagged by Analyzer 0 % (0-5); Neutrophil # 2.24 X10^3/uL (2.7-7.7); Neutrophil % 50.4 % (47-70); Platelet Count 240 K/mm3 (150-450); RBC Distribution Width CV 12.8 % (11.6-14.6); RBC Distribution Width SD 42.5 fl (35.1-43.9); Red Blood Count 4.58 M/mm3 (4.2-5.4); White Blood Count 4.5 K/mm3 (4.4-11.0)
[2021-07-24 09:43] LABS: International Normalized Ratio 2.4; Prothrombin Time (Protime)PT. 25.4 SECONDS (11.7-14.9)
[2021-07-24 09:48] LABS: Anion Gap 2 (5-15); BUN 10 mg/dL (7-18); Calcium,Total 9.2 mg/dL (8.5-10.1); Chloride 110 mmol/L (98-107); Creatinine, Serum 0.67 mg/dL (0.55-1.02); EST Glomerular Filtration Rate 89 mL/min (>60); Est Glom Filt Rate - Afr Amer 108 mL/min (>60); Glucose 112 mg/dL (74-106); Sodium Level 143 mmol/L (136-145); Troponin-I HS 272 pg/mL (3.0-54.0)
[2021-07-24 09:57] VITALS: BP 153/89; PULSE 71; RESP 23; O2SAT 93
[2021-07-24 11:24] VITALS: BP 178/96; PULSE 69; RESP 25; O2SAT 96
[2021-07-24] MEDS: Aspirin 81 MG TAB.CHEW 324 MG PO (11:26)
[2021-07-24 11:46] LABS: Troponin-I HS 271 pg/mL (3.0-54.0)
== END 2021-07-24 12:47 | disposition home or self-care (01) ==
PROVIDERS: Emergency Provider Emergency Medicine; PCP Student in an Organized Health Care Education/Training Program
DX: I10 Essential (primary) hypertension (principal); R77.8 Other specified abnormalities of plasma proteins; I25.2 Old myocardial infarction; I25.10 Atherosclerotic heart disease of native coronary artery without angina pectoris; Z87.891 Personal history of nicotine dependence; Z86.73 Personal history of transient ischemic attack (TIA), and cerebral infarction without residual deficits; Z85.3 Personal history of malignant neoplasm of breast
CPT/HCPCS: 71045; 80048; 84484; 85025; 85610; 93005; 99285; J7030; A4216

== ENCOUNTER 2021-10-06 16:11 | Emergency (ER) | payer MEDICARE, OTHER, SELFPAY ==
[2021-10-06 16:12] VITALS: BP 193/115; PULSE 96; RESP 16; TEMP 36.7; O2SAT 100; BMI 20.3
[2021-10-06 16:36] VITALS: BP 190/106; PULSE 89; RESP 24; O2SAT 96
--- NOTE | 2021-10-06 16:40 | EDS_ITS ---
HPI <KARLO RAJPUT - Last Filed: 10/06/21 18:15> History of Present Illness Chief Complaint: Hypertension Detail of Chief Complaint: My blood pressure is high and I feel a little dizzy. Informant: patient and family Onset/Context/Timing Onset: Today Context: Sudden Onset Timing: Continuous Narrative Narrative: Patient arrives with family member who stopped for a visit this afternoon and took the patient's blood pressure which was elevated. Patient then c/o dizziness and was brought to the ED. Patient states she took her routine am bp medication, carvedilol. Patient denies chest pain, sob, headache. Patient reports a change in vision but does not describe it as a loss of vision or double vision. Prior similar symptoms: Yes PFSH <KARLO RAJPUT - Last Filed: 10/06/21 18:15> [facility] Medical History Acute GI bleeding Anticoagulated on Coumadin Atrial fibrillation with RVR Back pain Cerebrovascular disease Chronic antral gastritis CVA (cerebral vascular accident) Elevated blood pressure reading in office with white coat syndrome, without diagnosis of hypertension Elevated troponin (06/16/20) Elevation of cardiac enzymes Essential (primary) hypertension Gastric polyp History of breast cancer History of non-ST elevation myocardial infarction (NSTEMI) (05/23/21) History of TIA (transient ischemic attack) (06/16/20) History of vasculitis Hypercoagulable state Hyperlipidemia Hypokalemia Hypothyroidism Lower gastrointestinal bleeding Multiple premature ventricular complexes Non-ischemic cardiomyopathy Orthostatic hypotension Osteoarthritis of spine Paroxysmal atrial fibrillation Patent foramen ovale Pre-syncope Right bundle branch block (RBBB) Sick sinus syndrome Stenosis of left carotid artery Syncope Vasculitis Home Medications atorvastatin 20 mg PO QHS 08/20/13 [History Last Taken 03/29/21] cyanocobalamin (vitamin B-12) 1,000 mcg PO DAILY 11/02/18 [History Last Taken 03/30/21] potassium chloride 10 meq PO DAILY 11/02/18 [History Last Taken 03/30/21] levothyroxine 75 mcg tablet 75 mcg PO DAILY 04/08/19 [History Last Taken 03/30/21] warfarin 2 mg PO MOWE 03/30/21 [History Last Taken 03/29/21] warfarin 3 mg PO SUTUTHFRSA 03/30/21 [History Last Taken 03/29/21] ferrous sulfate 325 mg PO DAILY #0 tab 05/23/21 [Rx Last Taken 03/30/21] isosorbide mononitrate 30 mg PO DAILY 05/23/21 [History Last Taken Unknown] loratadine 10 mg tablet 10 mg PO DAILY tab 06/19/21 [History Last Taken Unknown] carvedilol 6.25 mg tablet 6.25 mg PO BID #180 tab 08/14/21 [Rx Last Taken Unk nown] Allergy/AdvReac Type Severity Reaction Status Date / Time omeprazole Allergy Severe Swelling Verified 10/06/21 16:12 lansoprazole Allergy Intermediate edema Verified 10/06/21 16:12 levofloxacin [From Levaquin] Allergy Angioedema Verified 10/06/21 16:12 lisinopril Allergy Swelling Verified 10/06/21 16:12 Penicillins Allergy Itching Verified 10/06/21 16:12 Sulfa (Sulfonamide Allergy Angioedema Verified 10/06/21 16:12 Antibiotics) amlodipine AdvReac Severe severe Verified 10/06/21 16:12 hypotension Family History Father Myocardial infarction Sister CAD (coronary artery disease) Stents Brother CVA (cerebral vascular accident) Surgical History History of colonoscopy (08/2018) History of esophagogastroduodenoscopy (EGD) (08/2018) History of left heart catheterization (05/23/21) History of open reduction and internal fixation (ORIF) procedure History of permanent cardiac 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) History of right mastectomy Social History Smoking Status: Former smoker Tobacco: How many years used: 20 how long ago did patient quit smokin years ago second hand exposure: No alcohol intake: current alcohol intake frequency: holidays/special occasions only substance use type: does not use caffeine: No ROS <KARLO RAJPUT - Last Filed: 10/06/21 18:15> ROS ED Constitutional Constitutional ED: Denies fever(s), frequent falls, poor appetite or weakness Eyes Eyes: Reports as per HPI and change in vision bilateral (patient denies blurry or blurry vision, just seems different) ENT ENT ED: Denies ear pain or sore throat Cardiovascular Cardiovascular: Reports dizziness and leg edema; Denies chest pain or dyspnea Respiratory/Chest Respiratory/Chest: Denies cough or dyspnea Gastrointestinal Gastrointestinal: Denies abdominal pain, nausea or vomiting Genitourinary Genitourinary ED: Denies dysuria Musculoskeletal Musculoskeletal: Denies myalgias Integumentary Denies rash Neurologic Neurologic: Reports other Details: dizziness ; Denies headache(s) or weakness Endocrine Endocrinology: Denies polydipsia or polyuria EXAM <KARLO RAJPUT - Last Filed: 10/06/21 18:15> Physical Exam Const Vital Signs: 10/06/21 16:12 10/06/21 16:20 10/06/21 16:36 Temperature 98.1 F Temperature Source Temporal Pulse Rate 96 89 Respiratory Rate 16 24 H Respiratory Effort Normal Blood Pressure 193/115 H 190/106 H Blood Pressure Mean 141 134 Pulse Ox 100 96 Oxygen Delivery Method Room Air Room Air Positive well nourished and well developed General Appearance ED: well developed HEENT Reports moist mucous membranes Eyes PERRL and EOMs intact bilaterally Neck supple Chest Wall inspection of chest normal and palpation of chest normal Resp normal respiratory effort and clear to auscultation bilaterally Cardio regular rate and regular rhythm GI normal to inspection, nondistended, normoactive bowel sounds Bladder / Kidney Exam: other Extremity Extremity Narrative: non-pitting, RLE > LLE, patient describes this as baseline. General Extremety ED: Yes edema General Extremity: edema Neuro oriented x3 Sensorium / Orientation: alert Motor Exam: strength 5/5 throughout Psych mental status grossly normal Skin no rashes or lesions noted <Dr. Franci Pan MD - Last Filed: 10/06/21 22:04> Physical Exam Const Vital Signs: 10/06/21 16:12 10/06/21 16:20 10/06/21 16:36 Temperature 98.1 F Temperature Source Temporal Pulse Rate 96 89 Respiratory Rate 16 24 H Respiratory Effort Normal Blood Pressure 193/115 H 190/106 H Blood Pressure Mean 141 134 Pulse Ox 100 96 Oxygen Delivery Method Room Air Room Air MDM <KARLOGORGE ROWLANDSHERLY - Last Filed: 10/06/21 18:15> MDM MDM Narrative Medical decision making narrative: Patient placed on teletypesetter monitor and EKG obtained, blood pressure trended. CBC, BMP, INR/PT/, and non-contrast head CT obtained. Lab Data Attestation: I reviewed the patient's lab results. Labs: Laboratory Results - last 24 hr 10/06/21 10/06/21 10/06/21 16:32 16:32 16:48 WBC 5.3 RBC 4.58 Hgb 13.3 Hct 41.4 MCV 90.4 MCH 29.0 MCHC 32.1 RDW Std Deviation 41.4 RDW Coeff of Duc 12.6 Plt Count 213 MPV 9.3 Immature Gran % (Auto) 0.200 Neut % (Auto) 47.8 Lymph % (Auto) 39.9 [place] % (Auto) 8.6 Eos % (Auto) 2.9 Baso % (Auto) 0.6 Absolute Neuts (auto) 2.5 Absolute Lymphs (auto) 2.10 Nucleated RBC % 0 PT 21.0 H INR 1.9 Sodium 139 Potassium 4.4 Chloride 109 H Carbon Dioxide 28.0 Anion Gap 2 L BUN 11 Creatinine 0.72 Estim Creat Clear Calc 38.29 Est GFR (MDRD) Af Amer 99 Est GFR (MDRD) Non-Af 82 BUN/Creatinine Ratio 15.3 Glucose 107 H Calcium 9.0 Radiography Diagnostic Testing: Clinical Impression(s) from Imaging Studies Brain CT 10/06/21 16:41 IMPRESSION: No acute intracranial hemorrhage or mass effect. Electronically Signed: Issa Bustos MD (Brooks) at 17:27 EST Reading Location ID and State: [address] [place] [address] , Service support , Rhythm Strip Rhythm Strip: Sinus Rhythm Treatment and Re-Evaluation Comments:: On re-evaluation, patient reports feeling improved. Blood pressure 150/85, dizziness resolved. CBC unremarkable. BMP normal with a creatinine of 0.72 and GFR of 82. INR 1.9. CT negative for any acute changes. Pt agreeable to discharge home with follow-up with Dr. Burdick. <Dr. Franci Pan MD - Last Filed: 10/06/21 22:04> [facility] Lab Data Labs: Laboratory Results - last 24 hr 10/06/21 10/06/21 10/06/21 16:32 16:32 16:48 WBC 5.3 RBC 4.58 Hgb 13.3 Hct 41.4 MCV 90.4 MCH 29.0 MCHC 32.1 RDW Std Deviation 41.4 RDW Coeff of Duc 12.6 Plt Count 213 MPV 9.3 Immature Gran % (Auto) 0.200 Neut % (Auto) 47.8 Lymph % (Auto) 39.9 [place] % (Auto) 8.6 Eos % (Auto) 2.9 Baso % (Auto) 0.6 Absolute Neuts (auto) 2.5 Absolute Lymphs (auto) 2.10 Nucleated RBC % 0 PT 21.0 H INR 1.9 Sodium 139 Potassium 4.4 Chloride 109 H Carbon Dioxide 28.0 Anion Gap 2 L BUN 11 Creatinine 0.72 Estim Creat Clear Calc 38.29 Est GFR (MDRD) Af Amer 99 Est GFR (MDRD) Non-Af 82 BUN/Creatinine Ratio 15.3 Glucose 107 H Calcium 9.0 Radiography Diagnostic Testing: Clinical Impression(s) from Imaging Studies Brain CT 10/06/21 16:41 IMPRESSION: No acute intracranial hemorrhage or mass effect. Electronically Signed: Issa Bustos MD (Brooks) at 17:27 EST , Treatment and Re-Evaluation Comments:: Patient seen and evaluated with [employer] student. Chart reviewed and approved. I was involved in all decision-making for orders, treatment, and disposition. Discharge Plan Triage Chief Complaint: Hypertension ED Provider: Franci Pan Dx/Rx/DC Orders Clinical Impression: Hypertension Instructions: ED Hypertension, Established Prescriptions: No Action levothyroxine 75 mcg tablet 75 mcg PO DAILY RF: 0 loratadine 10 mg tablet 10 mg PO DAILY RF: 0 atorvastatin 20 MG tablet 20 mg PO QHS RF: 0 cyanocobalamin (vitamin B-12) 1,000 MCG tablet 1,000 mcg PO DAILY RF: 0 potassium chloride 10 MEQ tablet extended release 10 meq PO DAILY RF: 0 warfarin 5 mg Tablet 2 mg PO MOWE RF: 0 warfarin 4 mg Tablet 3 mg PO SUTUTHFRSA RF: 0 isosorbide mononitrate 30 mg tablet extended release 24 hr 30 mg PO DAILY RF: 0 ferrous sulfate 325 mg (65 mg iron) tablet 325 mg PO DAILY Qty: 0 RF: 0 carvedilol 6.25 mg tablet 6.25 mg PO BID Qty: 180 RF: 3 Primary Care Provider: Elmo Burdick Referrals: Elmo Burdick DO [Primary Care Provider] - 1 Week if not improving Disposition Disposition: Home, Self Care Discharge Date/Time: 10/06/21 18:30
--- NOTE | 2021-10-06 16:41 | CT_ITS ---
STUDY: CT BRAIN WITHOUT CONTRAST REASON FOR EXAM: Female, 85 years old. HYPERTENSIVE ON COUMADIN RADIATION DOSAGE (If Supplied By Facility): CTDIvol = ( 47.06 ) mGy, DLP = ( 837.39 ) mGycm TECHNIQUE: Transaxial CT imaging of the brain was performed without administration of intravenous contrast material. Individualized dose optimization techniques were used for this CT. COMPARISON: 06/17/2020 FINDINGS: Normal soft tissue structures. Normal calvarium. Normal size ventricles and extra-axial spaces for the patient''s age. Encephalomalacia and gliosis of the right frontal, parietal and temporal lobes compatible with previous infarction stable since prior study. Normal basal ganglia and thalami. Normal brainstem. Normal cerebellum. There is no intracranial hemorrhage. There are no findings of an acute ischemic infarction. Normal visualized paranasal sinuses. CT/Brain/Head without Contrast IMPRESSION: No acute intracranial hemorrhage or mass effect. Electronically Signed: Issa Bustos MD (Brooks) at 17:27 EST ,
--- NOTE | 2021-10-06 16:54 | EKG12_ITS ---
Test Reason : Blood Pressure : / mmHG Vent. Rate : 084 BPM Atrial Rate : 084 BPM P-R Int : 170 ms QRS Dur : 124 ms QT Int : 398 ms P-R-T Axes : 078 -63 056 degrees QTc Int : 470 ms Normal sinus rhythm Right bundle branch block Left anterior fascicular block Bifascicular block Abnormal ECG Confirmed by NIYAH CRAIG, ARACELI ([id number]), art editor ZABRINA ALEXANDER ([id number]) on 10/10/2021 12:33:37 P M Referred By: JOMAR/MICHELE Confirmed By:ISAI LINDER MD
[2021-10-06 16:55] LABS: Absolute Neutrophil Count 2.5 X10^3/uL (2.0-7.7); Basophil# 0.03 X10^3/uL; Basophil% 0.6 % (0-1); Eosinophil# 0.15 X10^3/uL; Eosinophils% 2.9 % (0-5); Hematocrit 41.4 % (37-47); Hemoglobin 13.3 g/dL (12.0-15.0); Lymphocyte % 39.9 % (19-41); Mean Corp Hgb Conc 32.1 g/dL (32-36); Mean Corpuscular Volume 90.4 fL (81-99); Mean Platelet Vol. 9.3 fl (6.2-12.0); Monocyte# 0.45 X10^3/uL; Monocyte% 8.6 % (0-10); NRBC Flagged by Analyzer 0 % (0-5); Neutrophil # 2.52 X10^3/uL (2.7-7.7); Neutrophil % 47.8 % (47-70); Platelet Count 213 K/mm3 (150-450); RBC Distribution Width CV 12.6 % (11.6-14.6); RBC Distribution Width SD 41.4 fl (35.1-43.9); Red Blood Count 4.58 M/mm3 (4.2-5.4); White Blood Count 5.3 K/mm3 (4.4-11.0)
[2021-10-06 17:04] LABS: Anion Gap 2 (5-15); BUN 11 mg/dL (7-18); BUN/Creat Ratio 15.3 RATIO (10-20); Chloride 109 mmol/L (98-107); Creatinine, Serum 0.72 mg/dL (0.55-1.02); EST Glomerular Filtration Rate 82 mL/min (>60); Est Glom Filt Rate - Afr Amer 99 mL/min (>60); Estimated Creatinine Clearance 38.29 ml/min; Glucose 107 mg/dL (74-106); Potassium 4.4 mmol/L (3.5-5.1); Sodium Level 139 mmol/L (136-145)
[2021-10-06 17:46] LABS: International Normalized Ratio 1.9
== END 2021-10-06 18:30 | disposition home or self-care (01) ==
PROVIDERS: Emergency Provider Emergency Medicine; PCP Student in an Organized Health Care Education/Training Program; Visit Provider Emergency Medicine
DX: I10 Essential (primary) hypertension (principal); I42.8 Other cardiomyopathies; I48.0 Paroxysmal atrial fibrillation; I49.5 Sick sinus syndrome; I45.10 Unspecified right bundle-branch block; I25.2 Old myocardial infarction; E78.5 Hyperlipidemia, unspecified; E03.9 Hypothyroidism, unspecified; Z95.0 Presence of cardiac pacemaker; Z79.01 Long term (current) use of anticoagulants; Z79.899 Other long term (current) drug therapy; Z86.73 Personal history of transient ischemic attack (TIA), and cerebral infarction without residual deficits; Z87.891 Personal history of nicotine dependence; Z82.49 Family history of ischemic heart disease and other diseases of the circulatory system
CPT/HCPCS: 70450; 80048; 85025; 85610; 93005; 99284; A4216

== ENCOUNTER 2022-02-15 17:54 | Inpatient (IN) | payer MEDICARE, OTHER, SELFPAY ==
[2022-02-15 17:55] VITALS: BP 105/74; PULSE 99; RESP 24; TEMP 36.7; O2SAT 89; BMI 20.3
[2022-02-15 18:03] VITALS: RESP 20; O2SAT 93
--- NOTE | 2022-02-15 18:03 | EKG12_ITS ---
Test Reason : SOB Blood Pressure : / mmHG Vent. Rate : 097 BPM Atrial Rate : 097 BPM P-R Int : 158 ms QRS Dur : 120 ms QT Int : 358 ms P-R-T Axes : 080 -64 059 degrees QTc Int : 454 ms Normal sinus rhythm Right bundle branch block Left anterior fascicular block Bifascicular block Abnormal ECG Confirmed by DONNY CRAIG, KLEVER ([id number]), website/blog editor ZABRINA ALEXANDER ([id number]) on 02/19/2022 10:05:27 AM Referred By: MICHELE Confirmed By:KLEVER HINES MD
[2022-02-15 18:23] LABS: Absolute Lymphocyte Count 1.35 X10^3/uL (0.83-4.51); Absolute Neutrophil Count 8.3 X10^3/uL (2.0-7.7); Basophil# 0.03 X10^3/uL; Basophil% 0.3 % (0-1); Eosinophil# 0.05 X10^3/uL; Eosinophils% 0.5 % (0-5); Hematocrit 39.4 % (37-47); Lymphocyte # 1.35 X10^3/ul (0.83-4.51); Lymphocyte % 12.7 % (19-41); Mean Corpuscular Hgb 29.1 pg (27.0-32.0); Mean Corpuscular Volume 88.3 fL (81-99); Mean Platelet Vol. 9.1 fl (6.2-12.0); Monocyte# 0.82 X10^3/uL; Monocyte% 7.7 % (0-10); NRBC Flagged by Analyzer 0 % (0-5); Neutrophil # 8.33 X10^3/uL (2.7-7.7); Neutrophil % 78.5 % (47-70); Platelet Count 206 K/mm3 (150-450); RBC Distribution Width CV 12.7 % (11.6-14.6); RBC Distribution Width SD 41.2 fl (35.1-43.9); Red Blood Count 4.46 M/mm3 (4.2-5.4); White Blood Count 10.6 K/mm3 (4.4-11.0)
--- NOTE | 2022-02-15 18:34 | RAD_ITS ---
STUDY: X-RAY CHEST REASON FOR EXAM: Female, 86 years old. SOB, COUGH TECHNIQUE: XR Chest 1 View COMPARISON: 12.7.21 FINDINGS: There is no demonstrated pleural abnormality. There is a left sided pacemaker batterypack. The lung robertson are hyperexpanded. Normal size heart. Normal mediastinum and roc. Normal visualized pulmonary arteries. There is atherosclerotic calcification of the aortic arch with tortuosity. There are diffuse degenerative changes of the visualized thoracic spine. There is degenerative osteoarthritis of the bilateral shoulders. There is no demonstrated abnormality of the visualized soft tissue structures of the upper abdomen. RAD/Chest 1 View (Portable) IMPRESSION: There are no acute findings. Electronically Signed: Attila Jurado MD at 18:56 EDT ,
[2022-02-15 18:47] LABS: Anion Gap 7 (5-15); BUN 10 mg/dL (7-18); BUN/Creat Ratio 12.6 RATIO (10-20); Calcium,Total 8.7 mg/dL (8.5-10.1); Chloride 106 mmol/L (98-107); Creatinine, Serum 0.79 mg/dL (0.55-1.02); EST Glomerular Filtration Rate 73 mL/min (>60); Est Glom Filt Rate - Afr Amer 88 mL/min (>60); Estimated Creatinine Clearance 37.59 ml/min; Glucose 150 mg/dL (74-106); Potassium 4.2 mmol/L (3.5-5.1); Sodium Level 139 mmol/L (136-145)
[2022-02-15 18:58] VITALS: BP 110/77; PULSE 82; RESP 20; TEMP 36.7; O2SAT 96
[2022-02-15 19:04] VITALS: RESP 23; O2SAT 93
--- NOTE | 2022-02-15 19:25 | EDS_ITS ---
HPI History of Present Illness Chief Complaint: Cough Informant: patient Onset/Context/Timing Onset: Days (3 days) Context: Gradual Onset Current Severity: Mild Maximum Severity: Moderate Narrative Narrative: Patient presents with shortness of breath and cough over the past 3 days. O2 sat was 89% on room air when she arrived and she is not normally on home oxygen. She denies chest pain. She reports some chills but no measured fever. She is bringing up yellow sputum when she coughs. [facility] Medical History Acute GI bleeding Anticoagulated on Coumadin Atrial fibrillation with RVR Back pain Cerebrovascular disease Chronic antral gastritis CVA (cerebral vascular accident) Elevated blood pressure reading in office with white coat syndrome, without diagnosis of hypertension Elevated troponin (06/16/20) Elevation of cardiac enzymes Essential (primary) hypertension Gastric polyp History of breast cancer History of non-ST elevation myocardial infarction (NSTEMI) (05/23/21) History of TIA (transient ischemic attack) (06/16/20) History of vasculitis Hypercoagulable state Hyperlipidemia Hypokalemia Hypothyroidism Lower gastrointestinal bleeding Multiple premature ventricular complexes Non-ischemic cardiomyopathy Orthostatic hypotension Osteoarthritis of spine Paroxysmal atrial fibrillation Patent foramen ovale Pre-syncope Right bundle branch block (RBBB) Sick sinus syndrome Stenosis of left carotid artery Syncope Vasculitis Home Medications atorvastatin 20 mg tablet 20 mg PO QHS cholesterol 08/20/13 [History Last Taken 03/29/21] cyanocobalamin (vitamin B-12) 1,000 mcg tablet 1,000 mcg PO DAILY supplement 11/02/18 [History Last Taken 03/30/21] potassium chloride 10 mEq tablet,extended release 10 meq PO DAILY potassium 11/02/18 [History Last Taken 03/30/21] levothyroxine 75 mcg tablet 75 mcg PO DAILY thyroid 04/08/19 [History Last Taken 03/30/21] warfarin 4 mg tablet 3 mg PO SUFRSA Check with primary doctor 03/30/21 [History Last Taken 03/29/21] warfarin 5 mg tablet 4 mg PO TUTH Check with primary doctor 03/30/21 [History Last Taken 03/29/21] ferrous sulfate 325 mg (65 mg iron) tablet 325 mg PO DAILY anemia #0 tabs 05/23/21 [Rx Last Taken 03/30/21] loratadine 10 mg tablet 10 mg PO DAILY 06/19/21 [History Last Taken Unknown] carvedilol 12.5 mg tablet 12.5 mg PO BID #180 tabs 10/18/21 [Rx Last Taken Unknown] Allergy/AdvReac Type Severity Reaction Status Date / Time omeprazole Allergy Severe Swelling Verified 02/15/22 17:55 lansoprazole Allergy Intermediate edema Verified 02/15/22 17:55 levofloxacin [From Levaquin] Allergy Angioedema Verified 02/15/22 17:55 lisinopril Allergy Swelling Verified 02/15/22 17:55 Penicillins Allergy Itching Verified 02/15/22 17:55 Sulfa (Sulfonamide Allergy Angioedema Verified 02/15/22 17:55 Antibiotics) amlodipine AdvReac Severe severe Verified 02/15/22 17:55 hypotension Family History Father Myocardial infarction Sister CAD (coronary artery disease) Stents Brother CVA (cerebral vascular accident) Surgical History History of colonoscopy (08/2018) History of esophagogastroduodenoscopy (EGD) (08/2018) History of left heart catheterization (05/23/21) History of open reduction and internal fixation (ORIF) procedure History of permanent cardiac 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) History of right mastectomy Social History (Updated 02/16/22 @ 00:[address] Mireya Samson MD) household members: family Smoking Status: Former smoker Tobacco: How many years used: 20 how long ago did patient quit smokin years ago second hand exposure: No alcohol intake: current alcohol intake frequency: holidays/special occasions only substance use type: does not use caffeine: No ROS ROS ED Constitutional Constitutional ED: Reports chills; Denies fever(s) Eyes Eyes: Denies change in vision or discharge from eye(s) ENT ENT ED: Denies discharge from eye(s), rhinorrhea or sore throat Cardiovascular Cardiovascular: Denies chest pain or palpitations Respiratory/Chest Respiratory/Chest: Reports cough, dyspnea and sputum Gastrointestinal Gastrointestinal: Denies abdominal pain, diarrhea, nausea or vomiting Genitourinary Genitourinary ED: Denies difficulty urinating or dysuria Musculoskeletal Musculoskeletal: Denies back pain or extremity pain Integumentary Denies Abrasions or rash Neurologic Neurologic: Denies headache(s) or weakness Allergic/Immunologic Allergic/Immunologic ED: Denies lip swelling or urticaria EXAM Physical Exam Const Vital Signs: 02/15/22 17:55 02/15/22 18:03 02/15/22 19:04 Temperature 98.0 F Temperature Source Temporal Pulse Rate 99 Respiratory Rate 24 H 20 H 23 H Respiratory Effort Blood Pressure 105/74 Blood Pressure Mean 84 Pulse Ox 89 93 93 Oxygen Delivery Method Room Air Nasal Cannula Nasal Cannula Oxygen Flow Rate (L/min) 2 2 02/15/22 18:03 02/15/22 20:00 02/15/22 21:41 Temperature Temperature Source Pulse Rate 72 Respiratory Rate 16 Respiratory Effort Normal Blood Pressure Blood Pressure Mean Pulse Ox 97 Oxygen Delivery Method Nasal Cannula Room Air Oxygen Flow Rate (L/min) 2 02/15/22 18:58 Temperature 98.0 F Temperature Source Temporal Pulse Rate 82 Respiratory Rate 20 H Respiratory Effort Blood Pressure 110/77 Blood Pressure Mean 88 Pulse Ox 96 Oxygen Delivery Method Nasal Cannula Oxygen Flow Rate (L/min) 2 Positive well nourished and well developed General Appearance ED: well developed HEENT Reports normocephalic and head/scalp atraumatic Eyes PERRL and EOMs intact bilaterally Neck supple Chest Wall inspection of chest normal and palpation of chest normal Resp normal respiratory effort and clear to auscultation bilaterally Cardio regular rate and regular rhythm GI normal to inspection, nondistended, normoactive bowel sounds Palpation: soft Extremity Extremity Narrative: 1+ right lower extremity edema, chronic and unchanged from baseline per patient. Neuro oriented x3 and no sensory deficits noted Sensorium / Orientation: alert Motor Exam: strength 5/5 throughout Psych mental status grossly normal Skin no rashes or lesions noted MDM MDM MDM Narrative Medical decision making narrative: Lab work and chest x-ray initiated from triage. EKG obtained. Lab Data Attestation: I reviewed the patient's lab results. Labs: Laboratory Results - last 24 hr 02/15/22 02/15/22 02/15/22 18:20 18:20 19:41 WBC 10.6 RBC 4.46 Hgb 13.0 Hct 39.4 MCV 88.3 MCH 29.1 MCHC 33.0 RDW Std Deviation 41.2 RDW Coeff of Duc 12.7 Plt Count 206 MPV 9.1 Immature Gran % (Auto) 0.300 Neut % (Auto) 78.5 H Lymph % (Auto) 12.7 L Frontier % (Auto) 7.7 Eos % (Auto) 0.5 Baso % (Auto) 0.3 Absolute Neuts (auto) 8.3 H Absolute Lymphs (auto) 1.35 Nucleated RBC % 0 PT 28.0 H INR 2.7 D-Dimer Quant (PE/DVT) 0.44 Sodium 139 Potassium 4.2 Chloride 106 Carbon Dioxide 26.0 Anion Gap 7 BUN 10 Creatinine 0.79 Estim Creat Clear Calc 37.59 Est GFR (MDRD) Af Amer 88 Est GFR (MDRD) Non-Af 73 BUN/Creatinine Ratio 12.6 Glucose 150 H Calcium 8.7 Magnesium Troponin I High Sens 02/15/22 02/15/22 02/15/22 19:41 21:35 21:35 WBC RBC Hgb Hct MCV MCH MCHC RDW Std Deviation RDW Coeff of Duc Plt Count MPV Immature Gran % (Auto) Neut % (Auto) Lymph % (Auto) Frontier % (Auto) Eos % (Auto) Baso % (Auto) Absolute Neuts (auto) Absolute Lymphs (auto) Nucleated RBC % PT INR D-Dimer Quant (PE/DVT) Sodium Potassium Chloride Carbon Dioxide Anion Gap BUN Creatinine Estim Creat Clear Calc Est GFR (MDRD) Af Amer Est GFR (MDRD) Non-Af BUN/Creatinine Ratio Glucose Calcium Magnesium 2.1 Troponin I High Sens 96 H 91 H Radiography Chest X-Ray - ED: 1 View, Read by ED Physician and Chronic Changes Diagnostic Testing: Clinical Impression(s) from Imaging Studies Chest X-Ray 02/15/22 18:34 IMPRESSION: There are no acute findings. Electronically Signed: Attila Jurado MD at 18:56 EDT , EKG Initial EKG: Attestation: I personally reviewed and interpreted this EKG as follows: Interpretation: Sinus Rhythm (Sinus at 97 with bifascicular block. No acute ischemia.) Treatment and Re-Evaluation Narrative: Patient is currently on 2 L nasal cannula and satting in the high 90s. Her oxygen on arrival was 89% sitting at rest. Family states that she was also 89% on room air at home. She does not have home oxygen. Lab work reveals normal white count. INR is therapeutic at 2.7. Chemistry studies unremarkable. Troponin is elevated at 96. On review of prior records she tends to run elevated troponins in the past. She denies any chest pain at this time. Her D- dimer is normal. Repeat troponin will be drawn at this time and I will discussed with hospitalist that she is currently requiring oxygen and does not have this at home. Discharge Plan Dx/Rx/DC Orders Clinical Impression: Bronchitis, Hypoxia, Elevated troponin Disposition Disposition: Acute Care Hospital [facility] Discharge Date/Time: 02/16/22 00:09
[2022-02-15 20:00] VITALS: PULSE 72; RESP 16; O2SAT 97
[2022-02-15 20:37] LABS: D-Dimer Quantitative (DVT/PE) 0.44 FEU/ug/m (0.27-0.49)
[2022-02-15 20:38] LABS: Troponin-I HS 96 pg/mL (3.0-54.0)
[2022-02-15 20:42] LABS: International Normalized Ratio 2.7
[2022-02-15 22:09] LABS: Troponin-I HS 91 pg/mL (3.0-54.0)
--- NOTE | 2022-02-15 22:38 | HP.PCM.HOS_ITS ---
HPI - General General Date of Admission: 02/15/22 Date of Service: 02/15/22 Chief Complaint: Cough, dyspnea HPI Narrative The patient is an 86 y/o F w/ PMHx: Sick sinus syndrome s/p pacemaker placement, PAF, Hypothyroidism, Hx Breast CA s/p R mastectomy, Hx TIA/CVA, HTN, HLD, GERD w/ Hx GI bleed who presents to the [facility] ED on 02/15/22 with history of onset dyspnea and cough worsening over the last 3 days with chills but no fever reporting productive yellow sputum with coughing episodes prompting ED evaluation. She denies any recent headache, nausea, emesis, diarrhea or abdominal discomfort nor any urinary symptoms. She reports increased fatigue with activities that have not caused her similar drain prior. She lives with her twin sister and notes she has not been ill. Work-up in the ED includes T 98, heart rate 99, BP 105/74, respiratory rate 24, initially 89% on room air with improvement to 93 to 97% on 2 L nasal cannula, CBC with WC 10.6, hemoglobin 13, platelet 206 with left shift, coags with INR 2.7, D-dimer 0.44, PT 28, BMP with glucose 150, troponin initial 96 with repeat 91, chest x-ray with no acute cardiopulmonary findings, rapid COVID testing negative, EKG with sinus rhythm with bifascicular block with no acute evidence of ischemia. [facility] Medical History Acute GI bleeding Anticoagulated on Coumadin Atrial fibrillation with RVR Back pain Cerebrovascular disease Chronic antral gastritis CVA (cerebral vascular accident) Elevated blood pressure reading in office with white coat syndrome, without diagnosis of hypertension Elevated troponin (06/16/20) Elevation of cardiac enzymes Essential (primary) hypertension Gastric polyp History of breast cancer History of non-ST elevation myocardial infarction (NSTEMI) (05/23/21) History of TIA (transient ischemic attack) (06/16/20) History of vasculitis Hypercoagulable state Hyperlipidemia Hypokalemia Hypothyroidism Lower gastrointestinal bleeding Multiple premature ventricular complexes Non-ischemic cardiomyopathy Orthostatic hypotension Osteoarthritis of spine Paroxysmal atrial fibrillation Patent foramen ovale Pre-syncope Right bundle branch block (RBBB) Sick sinus syndrome Stenosis of left carotid artery Syncope Vasculitis Home Medications atorvastatin 20 mg tablet 20 mg PO QHS cholesterol 08/20/13 [History Last Taken 03/29/21] cyanocobalamin (vitamin B-12) 1,000 mcg tablet 1,000 mcg PO DAILY supplement 11/02/18 [History Last Taken 03/30/21] potassium chloride 10 mEq tablet,extended release 10 meq PO DAILY potassium 11/02/18 [History Last Taken 03/30/21] levothyroxine 75 mcg tablet 75 mcg PO DAILY thyroid 04/08/19 [History Last Taken 03/30/21] warfarin 4 mg tablet 3 mg PO SUFRSA Check with primary doctor 03/30/21 [History Last Taken 03/29/21] warfarin 5 mg tablet 4 mg PO TUTH Check with primary doctor 03/30/21 [History Last Taken 03/29/21] ferrous sulfate 325 mg (65 mg iron) tablet 325 mg PO DAILY anemia #0 tabs 05/23/21 [Rx Last Taken 03/30/21] loratadine 10 mg tablet 10 mg PO DAILY 06/19/21 [History Last Taken Unknown] carvedilol 12.5 mg tablet 12.5 mg PO BID #180 tabs 10/18/21 [Rx Last Taken Unknown] Allergy/AdvReac Type Severity Reaction Status Date / Time omeprazole Allergy Severe Swelling Verified 02/15/22 17:55 lansoprazole Allergy Intermediate edema Verified 02/15/22 17:55 levofloxacin [From Levaquin] Allergy Angioedema Verified 02/15/22 17:55 lisinopril Allergy Swelling Verified 02/15/22 17:55 Penicillins Allergy Itching Verified 02/15/22 17:55 Sulfa (Sulfonamide Allergy Angioedema Verified 02/15/22 17:55 Antibiotics) amlodipine AdvReac Severe severe Verified 02/15/22 17:55 hypotension Family History Father Myocardial infarction Sister CAD (coronary artery disease) Stents Brother CVA (cerebral vascular accident) Surgical History History of colonoscopy (08/2018) History of esophagogastroduodenoscopy (EGD) (08/2018) History of left heart catheterization (05/23/21) History of open reduction and internal fixation (ORIF) procedure History of permanent cardiac 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) History of right mastectomy Social History (Updated 02/16/22 @ 00:[address] Mireya Samson MD) household members: family Smoking Status: Former smoker Tobacco: How many years used: 20 how long ago did patient quit smokin years ago second hand exposure: No alcohol intake: current alcohol intake frequency: holidays/special occasions only substance use type: does not use caffeine: No ROS ROS Narrative Admission Review of Systems: CONSTITUTIONAL: No weight loss, fever, + chills, weakness or fatigue. HEENT: Eyes: No visual loss, blurred vision, double vision or yellow sclerae. Ears, Nose, Throat: No hearing loss, sneezing, congestion, runny nose or sore throat. SKIN: No rash or itching, lesions, wounds. CARDIOVASCULAR: No chest pain, chest pressure or chest discomfort, palpitations, edema, orthopnea, syncopal events. RESPIRATORY: + Shortness of breath, cough with productive yellow sputum, No wheezing, hemoptysis. GASTROINTESTINAL: No anorexia, nausea, vomiting or diarrhea, abdominal pain, melena, BRBPR. GENITOURINARY: No dysuria, frequency, urgency or retention. NEUROLOGICAL: No headache, dizziness, syncope, paralysis, ataxia, numbness or tingling in the extremities, focal weakness, change in bowel or bladder control, seizure. MUSCULOSKELETAL: + muscle, back pain, joint pain or stiffness. HEMATOLOGIC: + anemia, bleeding or bruising. LYMPHATICS: No enlarged nodes. No history of splenectomy. PSYCHIATRIC: No history of depression or anxiety. ENDOCRINOLOGIC: + reports of sweating, cold or heat intolerance. No polyuria or polydipsia. ALLERGIES: No history of asthma, hives, eczema or rhinitis. Vital Signs Vital Signs Vital Signs: 02/15/22 17:55 02/15/22 18:03 02/15/22 19:04 Temperature 98.0 F Temperature Source Temporal Pulse Rate 99 Respiratory Rate 24 H 20 H 23 H Respiratory Effort Blood Pressure 105/74 Blood Pressure Mean 84 Pulse Ox 89 93 93 Oxygen Delivery Method Room Air Nasal Cannula Nasal Cannula Oxygen Flow Rate (L/min) 2 2 02/15/22 18:03 02/15/22 20:00 02/15/22 21:41 Temperature Temperature Source Pulse Rate 72 Respiratory Rate 16 Respiratory Effort Normal Blood Pressure Blood Pressure Mean Pulse Ox 97 Oxygen Delivery Method Nasal Cannula Room Air Oxygen Flow Rate (L/min) 2 02/15/22 18:58 Temperature 98.0 F Temperature Source Temporal Pulse Rate 82 Respiratory Rate 20 H Respiratory Effort Blood Pressure 110/77 Blood Pressure Mean 88 Pulse Ox 96 Oxygen Delivery Method Nasal Cannula Oxygen Flow Rate (L/min) 2 Weight Weight: 130 lb Body Mass Index (BMI) 20.3 Physical Exam Narrative Physical Examination: General: Awake, alert, oriented x 3, hard of hearing, remains cooperative, seated upright in ED bed, fatigued appearing. Skin: Normal color, normal turgor, no icterus, no cyanosis. HEENT: AT/NC, EOMI, PERRLA, mildly dry MM, no carotid bruits or JVD noted. Lungs: Diminished, greater bases, coughing with deep inspiratory effort, no evidence of any distress, no rales, ronchi or wheezing. Heart: Regular rate and rhythm; no gallop, rub audible. Abdomen: Soft, NTTP, ND, normal BS, no HSM. Extremities: No cyanosis, clubbing, or edema. Neurological: Patient awake, alert, oriented as noted, cognitive function intact; pupils equally reactive to light and accommodation, cranial nerves II- XII grossly normal, moving all 4 extremities, no focal deficits, strength moderately global decrease secondary to acute presentation. Psychiatric: Affect appears fatigued, no acute evidence of depressive or anxiety feelings. Results Lab / Micro Data Result Diagrams: 02/15/22 18:20 02/15/22 18:20 Labs: Laboratory Results - last 24 hr 02/15/22 18:20: WBC 10.6, RBC 4.46, Hgb 13.0, Hct 39.4, MCV 88.3, MCH 29.1, MCHC 33.0, RDW Std Deviation 41.2, RDW Coeff of Duc 12.7, Plt Count 206, MPV 9.1, Immature Gran % (Auto) 0.300, Neut % (Auto) 78.5 H, Lymph % (Auto) 12.7 L, [place] % (Auto) 7.7, Eos % (Auto) 0.5, Baso % (Auto) 0.3, Absolute Neuts (auto) 8.3 H, Absolute Lymphs (auto) 1.35, Nucleated RBC % 0 02/15/22 18:20: Sodium 139, Potassium 4.2, Chloride 106, Carbon Dioxide 26.0, Anion Gap 7, BUN 10, Creatinine 0.79, Estim Creat Clear Calc 37.59, Est GFR (MDRD) Af Amer 88, Est GFR (MDRD) Non-Af 73, BUN/Creatinine Ratio 12.6, Glucose 150 H, Calcium 8.7 02/15/22 19:41: PT 28.0 H, INR 2.7, D-Dimer Quant (PE/DVT) 0.44 02/15/22 19:41: Troponin I High Sens 96 H 02/15/22 21:35: Troponin I High Sens 91 H Micro: Microbiology 02/15/22 18:25 Nasal Secretion SARS-CoV-2 Antigen (Rapid) - Final Radiology Impression Chest X-Ray 02/15/22 18:34 IMPRESSION: There are no acute findings. Electronically Signed: Attila Jurado MD at 18:56 EDT Reading Location ID and State: [facility] [place] / [place] , Service support , Assessment & Plan Assessment/Plan (1) Bronchitis: (2) Hypoxia: (3) Elevated troponin: PLAN: Plan The patient is an 86 y/o F w/ PMHx: Sick sinus syndrome s/p pacemaker placement, PAF, Hypothyroidism, Hx Breast CA s/p R mastectomy, Hx TIA/CVA, HTN, HLD, GERD w/ Hx GI bleed who presents to the [facility] ED on 02/15/22 with history of onset dysp marge and cough worsening over the last 3 days with chills but no fever reporting productive yellow sputum with coughing episodes prompting ED evaluation. #1. Acute Bronchitis with hypoxia: Will admit to PCU given #2, maintain on oxygen with wean as tolerated to room air, PRN albuterol, will initiate azithromycin pending sputum Cx, antigens, respiratory viral panel, HOB, IS parameters. Will benefit from walking pulse oximeter assessment prior to any consideration for discharge. PT/OT/case management consulted for discharge planning. #2. Indeterminate cardiac enzymes suspected secondary to number 1, demand: EKG in ED sinus rhythm with bifascicular block with no acute evidence of ischemia, CXR w/ no acute cardiopulmonary findings, initial trop [address] on a monitored bed to assure no acute myocardial infarction with serial cardiac enzymes and EKGs. Medium level requested. FLP in AM. ASA, NG, morphine. Last echocardiogram noted 03/31/2021 with EF 55%, paced septal motion, trivial MVI, trivial TVI, indeterminate diastolic function. Given elevated enzymes will pursue repeat echocardiogram given timeline. Device interrogation requested. #3. History TIA/CVA: We will continue Coumadin with INR trending, continue hypertensive regimen as well as statin therapy. #4. PAF: We will continue patient home Coumadin with INR trending as well as Coreg regimen. #5. Hypertension: Continue home regimen including Coreg with hold parameters as needed, PRN hydralazine. #6. Hyperlipidemia: Continue home statin regimen. AM FLP. #7. Hypothyroidism: We will continue patient on levothyroxine regimen. #8. History of breast cancer: Status post right mastectomy, considered in remission. #9. GERD with history of prior GI bleed: Not on any regimen currently, if necessary may add PPI. #10. History of sick sinus syndrome: Status post pacemaker placement. Device interrogation requested. #11. DVT prophylaxis: SCDs, continue home Coumadin with INR trending. #12. CODE status: Patient is unsure but does believe that her daughter Erin is her healthcare power of supervisor data processing and that potentially she has a living will but again is uncertain. Encouraged her strongly to check with her daughter and see if these things are in place. Discussed CODE status at length including difference between FULL code, DNR-CCA and DNR-CC status. Following discussions about the differences in these status, requested Full Code status. Advanced Care Planning Face to Face Time: 16 minutes. Charges/Coding Visit Charges Inpatient E&M: 84075 Init Hosp L3 Procedures Hospitalists Procedures: 64094 Advncd Care Plan 30 Min
[2022-02-15 23:39] LABS: Magnesium 2.1 mg/dL (1.6-2.6)
[2022-02-16] VITALS (11 sets, daily range): BP systolic 112–132; BP diastolic 50–73; PULSE 78–100; RESP 16–20; TEMP 36.4–36.8; O2SAT 92–97; BMI 19.4
--- NOTE | 2022-02-16 00:12 | ECHOCS_ITS ---
Version 2 Reason For Study: CAD/ASHD Procedure This was a 2D Doppler, Color Flow transthoracic echocardiogram. The study was technically difficult. Contrast injection was performed. Exam performed portable in patient room. Left Ventricle Normal LV size. Left ventricular systolic function is normal. The estimated ejection fraction is 65 %. Diastolic function is indeterminate. Apical wall motion abnormality may reflect pacemaker activation. Right Ventricle Normal RV size. ICD or pacer leads identified within the right ventricle. Normal systolic function. Atria The left atrium is mildly enlarged. Normal right atrium. ICD or pacer leads identified within the right atrium. No doppler evidence for ASD. Mitral Valve There is moderate mitral annular calcification. Extension of the mitral annular calcification onto the base of the posterior mitral valve leaflet. Mild focal mitral valve calcification of the anterior leaflet. Trivial mitral valve insufficiency. Tricuspid Valve Normal tricuspid valve. Trivial tricuspid valve insufficiency. Right ventricular systolic pressure estimated to be 34 mmHg. Aortic Valve The aortic valve is not well visualized. Pulmonic Valve The pulmonic valve is not well visualized. Great Vessels The aortic root is not well visualized. Pericardium/Pleural No pericardial effusion. Medication Diluted definity 3ml given slow IV push to enhance endocardial definition. MMode/2D Measurements & Calculations LVIDd: 3.8 cm IVSd: 1.2 cm LAV(MOD-bp): 50.2 ml LVIDs: 3.1 cm LVPWd: 1.2 cm RVDd: 2.9 cm FS: 17.9 % LAV(MOD-bp) Indexed: 29.8 ml/m2 LAV(MOD-sp2): 50.2 ml LAV(MOD-sp4): 48.1 ml LA dimension(2D): 4.3 cm LA A4 area: 18.3 cm2 RA A4 area: 6.8 cm2 Doppler Measurements & Calculations MV E max sanjiv: 58.5 cm/sec Lat Peak E' Sanjiv: 5.4 cm/sec Med Peak E' Sanjiv: 3.8 cm/sec MV A max sanjiv: 93.3 cm/sec E/E' lat: 10.8 E/E' med: 15.4 MV E/A: 0.63 Ao V2 max: 172.8 cm/sec LV V1 max: 120.2 cm/sec PA V2 max: 78.7 cm/sec Ao max P.9 mmHg LV V1 max P.8 mmHg Ao V2 mean: 124.6 cm/sec Ao mean P.8 mmHg Ao V2 VTI: 31.6 cm TR max sanjiv: 275.9 cm/sec TR max P.5 mmHg ECHO/Echo Complete W/ Contrast Interpretation Summary The study was technically difficult. Contrast injection was performed. Left ventricular systolic function is normal. The estimated ejection fraction is 65 %. Apical wall motion abnormality may reflect pacemaker activation. The left atrium is mildly enlarged. There is moderate mitral annular calcification. Extension of the mitral annular calcification onto the base of the posterior mi tral valve leaflet. Mild focal mitral valve calcification of the anterior leaflet. Trivial mitral valve insufficiency. Trivial tricuspid valve insufficiency. Right ventricular systolic pressure estimated to be 34 mmHg. Diastolic function is indeterminate. ICD or pacer leads identified within the right atrium ICD or pacer leads identified within the right ventricle. Ordering Physician: Mireya Samson Referring Physician: Elmo Burdick Performed By: Joanie Burgess, HANH, RVT
[2022-02-16 00:28] LABS: Procalcitonin 0.09 ng/mL (0.00-0.09)
--- NOTE | 2022-02-16 00:30 | NURSING ---
Respiratory panel swab collected by barak carbajal
[2022-02-16] MEDS: 0.9% Normal Saline 1,000 ML 100 ML IV (00:50)
[2022-02-16 01:58] LABS: Troponin-I HS 94 pg/mL (3.0-54.0)
[2022-02-16] MEDS: Levothyroxine 75 MCG Tablet PO (05:03)
[2022-02-16 06:49] LABS: Absolute Lymphocyte Count 1.27 X10^3/uL (0.83-4.51); Absolute Neutrophil Count 7.4 X10^3/uL (2.0-7.7); Basophil# 0.02 X10^3/uL; Basophil% 0.2 % (0-1); Eosinophil# 0.04 X10^3/uL; Eosinophils% 0.4 % (0-5); Hematocrit 39.4 % (37-47); Hemoglobin 12.3 g/dL (12.0-15.0); Lymphocyte # 1.27 X10^3/ul (0.83-4.51); Lymphocyte % 13.5 % (19-41); Mean Corp Hgb Conc 31.2 g/dL (32-36); Mean Corpuscular Hgb 28.6 pg (27.0-32.0); Mean Corpuscular Volume 91.6 fL (81-99); Mean Platelet Vol. 9.6 fl (6.2-12.0); Monocyte# 0.73 X10^3/uL; Monocyte% 7.7 % (0-10); NRBC Flagged by Analyzer 0 % (0-5); Neutrophil # 7.35 X10^3/uL (2.7-7.7); Neutrophil % 77.9 % (47-70); Platelet Count 197 K/mm3 (150-450); RBC Distribution Width CV 12.7 % (11.6-14.6); RBC Distribution Width SD 42.8 fl (35.1-43.9); White Blood Count 9.4 K/mm3 (4.4-11.0)
[2022-02-16 07:02] LABS: International Normalized Ratio 2.9; Prothrombin Time (Protime)PT. 30.2 SECONDS (11.7-14.9)
[2022-02-16 07:20] LABS: ALB/GLOB Ratio 0.8 RATIO (0.9-2.4); AST(SGOT) 13 U/L (15-37); Alanine Aminotransfer ALT/SGPT 11 U/L (13-56); Albumin, Serum 2.8 g/dL (3.2-5.0); Alkaline Phosphatase 83 U/L (45-117); Anion Gap 4 (5-15); BUN 11 mg/dL (7-18); BUN/Creat Ratio 15.4 RATIO (10-20); Calcium,Total 8.6 mg/dL (8.5-10.1); Chloride 106 mmol/L (98-107); Cholesterol 115 mg/dL (200); Creatinine, Serum 0.71 mg/dL (0.55-1.02); EST Glomerular Filtration Rate 83 mL/min (>60); Est Glom Filt Rate - Afr Amer 100 mL/min (>60); Estimated Creatinine Clearance 35.89 ml/min; Globulin 3.6 g/dL (2.2-4.2); Glucose 105 mg/dL (74-106); High Density Lipoprotein 56 mg/dL; Potassium 3.9 mmol/L (3.5-5.1); Protein, Total 6.4 g/dL (6.4-8.2); Sodium Level 139 mmol/L (136-145); Triglycerides 59 mg/dL; Very Low Density Lipoprotein 12 mg/dL (5-40)
--- NOTE | 2022-02-16 08:52 | NURSING ---
Pacer check performed. Awaiting report.
[2022-02-16] MEDS: Cyanocobalamin 500 MCG Tablet 1000 MCG PO (09:41)
[2022-02-16] MEDS: Loratadine 10 MG Tablet PO (09:41)
[2022-02-16] MEDS: Carvedilol 12.5 MG Tablet PO ×2 (09:41→21:29)
[2022-02-16] MEDS: Potassium Chloride Oral Tablet 10 MEQ PO (09:42)
[2022-02-16] MEDS: Ferrous Sulfate 325 MG Tablet PO (09:42)
--- NOTE | 2022-02-16 12:25 | CASEMGMT ---
MARGARET FERGUSON assessment: Face to Face with patient for initial transition planning/care coordination assessment. MARGARET FERGUSON introduced self and role at [facility], pt voices understanding and consents to assessment. Pt is lying in bed in no distress on 2L nc. Pt is A/Ox4 and answers all questions appropriately.? Care providers, pharmacy,?and demographics verified. ? Presentation: Pt w/ cough/congestion/productive cough Admitting dx: Bronchitis, hypoxia, elev troponin PCP: Gennaro Specialists: None Preferred Pharmacy: [facility] Insurance: [facility] Prescription Benefit:?Yes Living Will/HPOA: Pt has LW/HPOA and is aware that they are on file at [facility]. Pt's son, Philip Avila, is HPOA. LNOK: Philip Avila, son/HPOA; Kristin [place], sis-in-law Living Arrangements: Pt lives with twin sister in [address] [facility] and states no concerns at home. Pt is independent with ADL's. Transportation: Pt's sis-in-law drives and states no transportation concerns. DME/HHC: Pt has a walker and states no need for any further DME. Pt states no preference for DME, if qualifies for home O2 at discharge. Green sheet left on chart for O2. Pt states no hx of HHC or SNF in past. Therapy is recommending HHC for pt and pt provided with list of HHC providers including quality and resource use data and consistent with the pt's preferred geographic region, medical need, and insurance network. CM to f/u with pt via phone on 02/16/22 during f/u phone call to see if she wants HHC and her choice. Pt states no concerns with going home at time of discharge. Pt is retired. Pt states does not smoke cigarettes or drink ETOH. Pt states no further concerns/needs. CM to follow for any further discharge planning/needs. Advised pt to ask for CM if any further questions/concerns/needs arise, voices understanding. Pt Goal: ? Home Plan: Home w/ HHC, if desired [place] MARGARET FERGUSON
[2022-02-16] MEDS: CLARIFY ORDER 1 EACH NOTE ×2 (13:05→16:43)
--- NOTE | 2022-02-16 14:35 | PN.HOSP_ITS ---
Subjective Subjective Mrs. Avila is an 86-year-old female who presented last evening to the emergency department with dyspnea and cough that has been worsening over the last 3 days. She reported chills but no fever and indicated she was producing yellow sputum with cough. She reports that she is continued to have productive cough of yellow sputum and the culture was sent. She denies any known sick contacts and has a remote history of tobacco abuse however she states that was long ago and she only smoked for a couple of years. She states she feels like she may be breathing a little bit better. She is currently on 2 L nasal cannula with oxygen saturations at 96%. She states she does not wear oxygen at baseline. Objective Data Objective Data Vital Signs: Vital Signs Temp Pulse Resp BP Pulse Ox O2 Del Method O2 Flow Rate 97.7 F L 92 20 H 116/50 L 92 Nasal Cannula 2 02/16/22 09:37 02/16/22 09:37 02/16/22 09:37 02/16/22 09:37 02/16/22 13:47 02/16/22 13:28 02/16/22 13:47 Oxygen Flow Rate (L/min) 2 Oxygen Delivery Method Nasal Cannula Weight: 56.3 kg Body Mass Index (BMI) 19.4 Intake & Output: Intake and Output for Last 24 Hours 02/14/22 02/15/22 02/16/22 23:59 23:59 23:59 Intake Total 1545 / 1545 Balance 1545 / 1545 Lab / Micro Data Result Diagrams: 02/16/22 06:00 02/16/22 06:00 Labs: Laboratory Results - last 24 hr 02/15/22 18:20: WBC 10.6, RBC 4.46, Hgb 13.0, Hct 39.4, MCV 88.3, MCH 29.1, MCHC 33.0, RDW Std Deviation 41.2, RDW Coeff of Duc 12.7, Plt Count 206, MPV 9.1, Immature Gran % (Auto) 0.300, Neut % (Auto) 78.5 H, Lymph % (Auto) 12.7 L, Addison % (Auto) 7.7, Eos % (Auto) 0.5, Baso % (Auto) 0.3, Absolute Neuts (auto) 8.3 H, Absolute Lymphs (auto) 1.35, Nucleated RBC % 0 02/15/22 18:20: Sodium 139, Potassium 4.2, Chloride 106, Carbon Dioxide 26.0, Anion Gap 7, BUN 10, Creatinine 0.79, Estim Creat Clear Calc 37.59, Est GFR (MDRD) Af Amer 88, Est GFR (MDRD) Non-Af 73, BUN/Creatinine Ratio 12.6, Glucose 150 H, Calcium 8.7 02/15/22 19:41: PT 28.0 H, INR 2.7, D-Dimer Quant (PE/DVT) 0.44 02/15/22 19:41: Troponin I High Sens 96 H 02/15/22 21:35: Troponin I High Sens 91 H 02/15/22 21:35: Magnesium 2.1 02/15/22 23:40: Procalcitonin 0.09 02/16/22 01:30: Troponin I High Sens 94 H 02/16/22 06:00: WBC 9.4, RBC 4.30, Hgb 12.3, Hct 39.4, MCV 91.6, MCH 28.6, MCHC 31.2 L D, RDW Std Deviation 42.8, RDW Coeff of Duc 12.7, Plt Count 197, MPV 9.6, Immature Gran % (Auto) 0.300, Neut % (Auto) 77.9 H, Lymph % (Auto) 13.5 L, Addison % (Auto) 7.7, Eos % (Auto) 0.4, Baso % (Auto) 0.2, Absolute Neuts (auto) 7.4, Absolute Lymphs (auto) 1.27, Nucleated RBC % 0 02/16/22 06:00: PT 30.2 H, INR 2.9 02/16/22 06:00: Sodium 139, Potassium 3.9, Chloride 106, Carbon Dioxide 29.0, Anion Gap 4 L, BUN 11, Creatinine 0.71, Estim Creat Clear Calc 35.89, Est GFR (MDRD) Af Amer 100, Est GFR (MDRD) Non-Af 83, BUN/Creatinine Ratio 15.4, Glucose 105, Calcium 8.6, Total Bilirubin 0.60, AST 13 L, ALT 11 L, Alkaline Phosphatase 83, Total Protein 6.4, Albumin 2.8 L, Globulin 3.6, Albumin/Globulin Ratio 0.8 L , Triglycerides 59, Cholesterol 115, LDL Cholesterol 47, VLDL Cholesterol 12, HDL Cholesterol 56 Micro: Microbiology 02/16/22 03:33 Sputum, Expectorated/Coughed Gram Stain - Final 02/16/22 05:45 Urine, Clean Catch Legionella Antigen - Final 02/16/22 06:45 Urine, Clean Catch Streptococcus pneumoniae Antigen (M - Final 02/16/22 00:25 Mucosa - Nose Respiratory Panel (PCR) - Final 02/15/22 18:25 Nasal Secretion SARS-CoV-2 Antigen (Rapid) - Final Radiography Diagnostic Testing: Radiology Impression Chest X-Ray 02/15/22 18:34 IMPRESSION: There are no acute findings. Electronically Signed: Attial Jurado MD at 18:56 EDT , Echocardiogram 02/16/22 00:12 Interpretation Summary The study was technically difficult. Contrast injection was performed. Left ventricular systolic function is normal. The estimated ejection fraction is 65 %. Apical wall motion abnormality may reflect pacemaker activation. The left atrium is mildly enlarged. There is moderate mitral annular calcification. Extension of the mitral annular calcification onto the base of the posterior mitral valve leaflet. Mild focal mitral valve calcification of the anterior leaflet. Trivial mitral valve insufficiency. Trivial tricuspid valve insufficiency. Right ventricular systolic pressure estimated to be 34 mmHg. Diastolic function is indeterminate. ICD or pacer leads identified within the right atrium ICD or pacer leads identified within the right ventricle. Ordering Physician: Mireya Samson Referring Physician: Elmo Burdick Performed By: Joanie Burgess, RDCS, RVT Physical Exam Const alert, oriented x3, no apparent distress, average body habitus, healthy appearing and well nourished Constitutional Narrative: Elderly white female lying in bed, appears comfortable nontoxic, very pleasant and appropriately interactive, currently on 2 L nasal cannula with no signs of respiratory distress HEENT head/scalp atraumatic and moist oral mucous membranes HEENT Narrative: Dentition is fair for age, Mallampati is 2, no thrush, patient is fairly hard of hearing Resp normal respiratory effort, no retractions, no use of accessory muscles and clear to auscultation bilaterally Resp Narrative: Breath sounds diminished diffusely no dyspnea with conversation Auscultation: Negative for crackles, rales, rhonchi or wheezes Cardio regular rate, regular rhythm, S1 normal heart sound, S2 normal heart sound, no rub, no gallops, no clicks and no JVD Cardio Narrative: 2 out of 6 systolic murmur loudest at left upper sternal border GI normal to inspection, nondistended, normoactive bowel sounds, soft to palpation, non-tender and non-distended; Negative for hepatosplenomegaly Extremity no clubbing, cyanosis or edema Extremity Narrative: 2+ pedal pulses Neuro oriented x3, CN's II-XII intact bilaterally, moves all extremities, no focal motor deficits and no sensory deficits noted Sensorium / Orientation: awake, alert, oriented to person, oriented to place and oriented to time Speech: speech normal Psych affect normal Psych Narrative: Very pleasant Assessment & Plan Assessment/Plan (1) Community acquired pneumonia: (2) Hypoxia: (3) Elevated troponin: PLAN: Plan Community-acquired pneumonia with hypoxia -Patient remains on 2 L nasal cannula with oxygen saturations 92 to 96% -Wean as able -Patient is on no oxygen at baseline -Continue pulmonary toilet -Continue I-S/add Acapella -Add Mucinex -Sputum culture sent and gram stain shows gram-negative rods/gram-negative cocci bacillus, Gram-positive rods and gram-positive rods -Urine Legionella and strep pneumo antigens were negative -Respiratory viral PCR is negative -Continue azithromycin and add ceftriaxone -We will narrow or alter antibiotics based on cultures once resulted Elevated troponin -Patient's troponin always appears to be elevated -Cardiac catheterization done on 05/2021 and patient was noted to have no obstructive disease -Continue home cardiac meds -Patient was interrogated without any issue -Echocardiogram done and shows an EF of 65% with mild left atrial enlargement, trivial mitral valve insufficiency, trivial tricuspid valve insufficiency and a right ventricular systolic pressure of 34 mmHg -No further work-up at this time History of TIA/stroke -Continue home Coumadin -Continue risk factor modification PAF -INR is therapeutic at 2.9 -Continue home Coumadin -Continue home beta-alissa Hypertension -Continue home carvedilol -As needed hydralazine available -Continue to monitor Hyperlipidemia -Continue home statin Hypothyroidism -Continue home levothyroxine GERD -Currently on no medication -Monitor History of sick sinus syndrome -Pacemaker in place -Device was interrogated without any issue History of breast cancer -No current issues -Patient with history of right mastectomy DVT prophylaxis -Continue Coumadin -INR therapeutic CODE STATUS -Full code as per discussion on admission Charges/Coding Visit Charges Inpatient E&M: 10235 Subs Hosp L2
[2022-02-16] MEDS: Atorvastatin Calcium 20 MG Tablet PO (21:29)
[2022-02-16] MEDS: 0.9% Saline Lock 10 ML Syringe IV (21:29)
[2022-02-16] MEDS: guaiFENesin 1,200 MG Tablet 1200 MG PO (21:31)
[2022-02-17] VITALS (12 sets, daily range): BP systolic 101–145; BP diastolic 48–76; PULSE 67–85; RESP 14–18; TEMP 36.6–37.3; O2SAT 86–98
[2022-02-17 05:08] LABS: International Normalized Ratio 3.3; Prothrombin Time (Protime)PT. 32.9 SECONDS (11.7-14.9)
[2022-02-17] MEDS: Levothyroxine 75 MCG Tablet PO (05:26)
[2022-02-17] MEDS: Ferrous Sulfate 325 MG Tablet PO (08:27)
[2022-02-17] MEDS: Loratadine 10 MG Tablet PO (10:08)
[2022-02-17] MEDS: Cyanocobalamin 500 MCG Tablet 1000 MCG PO (10:08)
[2022-02-17] MEDS: Carvedilol 12.5 MG Tablet PO ×2 (10:08→21:34)
[2022-02-17] MEDS: Potassium Chloride Oral Tablet 10 MEQ PO (10:09)
[2022-02-17] MEDS: guaiFENesin 1,200 MG Tablet 1200 MG PO ×2 (10:09→21:34)
--- NOTE | 2022-02-17 11:17 | PN.HOSP_ITS ---
Subjective Subjective Patient states she is feeling better. Still requiring oxygen however we are weaning. Still coughing yellow sputum. Still with some weakness although much improved since admission. Patient is anxious to go home but does not feel quite ready yet. Lives with her twin sister at baseline. Objective Data Objective Data Vital Signs: Vital Signs Temp Pulse Resp BP Pulse Ox O2 Del Method O2 Flow Rate 99.1 F 79 18 114/48 L 96 Nasal Cannula 1 02/17/22 10:04 02/17/22 10:04 02/17/22 10:04 02/17/22 10:04 02/17/22 10:04 02/17/22 10:04 02/17/22 10:04 Oxygen Flow Rate (L/min) 1 Oxygen Delivery Method Nasal Cannula Weight: 56.9 kg Body Mass Index (BMI) 19.4 Intake & Output: Intake and Output for Last 24 Hours 02/15/22 02/16/22 02/17/22 23:59 23:59 23:59 Intake Total 2039 290 / 290 Balance 2039 290 / 290 Lab / Micro Data Result Diagrams: 02/16/22 06:00 02/16/22 06:00 Labs: Laboratory Results - last 24 hr 02/17/22 04:27: PT 32.9 H, INR 3.3 Micro: Microbiology 02/16/22 03:33 Sputum, Expectorated/Coughed Gram Stain - Final 02/16/22 05:45 Urine, Clean Catch Legionella Antigen - Final 02/16/22 06:45 Urine, Clean Catch Streptococcus pneumoniae Antigen (M - Final 02/16/22 00:25 Mucosa - Nose Respiratory Panel (PCR) - Final 02/15/22 18:25 Nasal Secretion SARS-CoV-2 Antigen (Rapid) - Final Radiography Diagnostic Testing: Radiology Impression Echocardiogram 02/16/22 00:12 Interpretation Summary The study was technically difficult. Contrast injection was performed. Left ventricular systolic function is normal. The estimated ejection fraction is 65 %. Apical wall motion abnormality may reflect pacemaker activation. The left atrium is mildly enlarged. There is moderate mitral annular calcification. Extension of the mitral annular calcification onto the base of the posterior mitral valve leaflet. Mild focal mitral valve calcification of the anterior leaflet. Trivial mitral valve insufficiency. Trivial tricuspid valve insufficiency. Right ventricular systolic pressure estimated to be 34 mmHg. Diastolic function is indeterminate. ICD or pacer leads identified within the right atrium ICD or pacer leads identified within the right ventricle. Ordering Physician: Mireya Samson Referring Physician: Elmo Burdick Performed By: Joanie Burgess, HANH, RVT Physical Exam Const alert, oriented x3, no apparent distress, average body habitus, healthy appearing and well nourished Constitutional Narrative: Elderly white female sitting up in bed watching television, appears comfortable nontoxic, very pleasant and appropriately interactive, currently on 2 L nasal cannula with no signs of respiratory distress HEENT head/scalp atraumatic and moist oral mucous membranes HEENT Narrative: Dentition is good for age, Mallampati 2, no thrush Resp normal respiratory effort, no retractions, no use of accessory muscles and clear to auscultation bilaterally Resp Narrative: Crackles left lateral base Auscultation: crackles; Negative for rales, rhonchi or wheezes Cardio regular rate, regular rhythm, S1 normal heart sound, S2 normal heart sound, no rub, no gallops, no clicks and no JVD Cardio Narrative: 2 out of 6 systolic murmur loudest at left upper sternal border GI normal to inspection, nondistended, normoactive bowel sounds, soft to palpation, non-tender and non-distended; Negative for hepatosplenomegaly Extremity no clubbing, cyanosis or edema Extremity Narrative: 2+ pedal pulses Neuro oriented x3, CN's II-XII intact bilaterally, moves all extremities, no focal motor deficits and no sensory deficits noted Sensorium / Orientation: awake, alert, oriented to person, oriented to place and oriented to time Speech: speech normal Assessment & Plan Assessment/Plan (1) Hypoxia: (2) Elevated troponin: (3) Gram-negative pneumonia: PLAN: Plan Gram-negative pneumonia with hypoxia -Patient remains on 2 L nasal cannula with oxygen saturations 92 to 96% -Weaning today -Patient is on no oxygen at baseline -Check a.m. ambulatory pulse ox -Continue pulmonary toilet -Continue I-S/add Acapella -Continue Mucinex -Sputum culture sent and gram stain shows gram-negative rods/gram-negative cocci bacillus, Gram-positive rods and gram-positive rods--> organism identification is still pending -Urine Legionella and strep pneumo antigens were negative -Respiratory viral PCR is negative -Continue azithromycin and ceftriaxone until cultures are identified -Anticipate patient will be able to go home tomorrow as long as she remains clinically stable -We will need home health care upon discharge and case management to follow- up to ascertain which home health care she would like Elevated troponin -Patient's troponin always appears to be elevated -Cardiac catheterization done on 05/2021 and patient was noted to have no obstructive disease -Continue home cardiac meds -Patient was interrogated without any issue -Echocardiogram done and shows an EF of 65% with mild left atrial enlargement, trivial mitral valve insufficiency, trivial tricuspid valve insufficiency and a right ventricular systolic pressure of 34 mmHg -No further work-up at this time History of TIA/stroke -INR is elevated at 3.3 today and we will therefore hold today's Coumadin dose and recheck in a.m. -Continue risk factor modification PAF -INR is therapeutic but slightly elevated at 3.3 -Hold Coumadin today repeat INR in a.m. -Continue home beta-alissa Hypertension -Continue home carvedilol -As needed hydralazine available -Continue to monitor Hyperlipidemia -Continue home statin Hypothyroidism -Continue home levothyroxine GERD -Currently on no medication -Monitor History of sick sinus syndrome -Pacemaker in place -Device was interrogated without any issue History of breast cancer -No current issues -Patient with history of right mastectomy DVT prophylaxis -INR therapeutic CODE STATUS -Full code as per discussion on admission Charges/Coding Visit Charges Inpatient E&M: 98009 Subs Hosp L2
[2022-02-17] MEDS: Atorvastatin Calcium 20 MG Tablet PO (21:34)
[2022-02-17] MEDS: 0.9% Saline Lock 10 ML Syringe IV (21:35)
[2022-02-18] VITALS (7 sets, daily range): BP systolic 122–135; BP diastolic 55–72; PULSE 73–83; RESP 12–16; TEMP 36.6–36.9; O2SAT 83–98
[2022-02-18] MEDS: Levothyroxine 75 MCG Tablet PO (04:00)
[2022-02-18 05:58] LABS: International Normalized Ratio 2.8; Prothrombin Time (Protime)PT. 29.1 SECONDS (11.7-14.9)
[2022-02-18 06:10] LABS: Anion Gap 3 (5-15); BUN 10 mg/dL (7-18); BUN/Creat Ratio 15.9 RATIO (10-20); Calcium,Total 8.6 mg/dL (8.5-10.1); Chloride 106 mmol/L (98-107); Creatinine, Serum 0.63 mg/dL (0.55-1.02); EST Glomerular Filtration Rate 95 mL/min (>60); Est Glom Filt Rate - Afr Amer 115 mL/min (>60); Estimated Creatinine Clearance 36.27 ml/min; Glucose 108 mg/dL (74-106); Potassium 4.2 mmol/L (3.5-5.1); Sodium Level 140 mmol/L (136-145)
--- NOTE | 2022-02-18 08:40 | PN.HOSP_ITS ---
Subjective Subjective Breathing well. Taken off oxygen and doing well at rest. Objective Data Objective Data Vital Signs: Vital Signs Temp Pulse Resp BP Pulse Ox O2 Del Method O2 Flow Rate 36.6 C 83 12 122/55 H 98 Nasal Cannula 2 02/18/22 03:55 02/18/22 07:00 02/18/22 03:55 02/18/22 03:55 02/18/22 03:55 02/18/22 03:55 02/18/22 03:55 Oxygen Flow Rate (L/min) 2 Oxygen Delivery Method Nasal Cannula Weight: 56.9 kg Body Mass Index (BMI) 19.4 Intake & Output: Intake and Output for Last 24 Hours 02/16/22 02/17/22 02/18/22 23:59 23:59 23:59 Intake Total 2039 1045 / 1045 100 / 100 Balance 2039 1045 / 1045 100 / 100 Lab / Micro Data Result Diagrams: 02/16/22 06:00 02/18/22 04:56 Labs: Laboratory Results - last 24 hr 02/18/22 04:56: PT 29.1 H, INR 2.8 02/18/22 04:56: Sodium 140, Potassium 4.2, Chloride 106, Carbon Dioxide 31.0, Anion Gap 3 L, BUN 10, Creatinine 0.63, Estim Creat Clear Calc 36.27, Est GFR (MDRD) Af Amer 115, Est GFR (MDRD) Non-Af 95, BUN/Creatinine Ratio 15.9, Glucose 108 H, Calcium 8.6 Micro: Microbiology 02/16/22 03:33 Sputum, Expectorated/Coughed Gram Stain - Final 02/16/22 05:45 Urine, Clean Catch Legionella Antigen - Final 02/16/22 06:45 Urine, Clean Catch Streptococcus pneumoniae Antigen (M - Final 02/16/22 00:25 Mucosa - Nose Respiratory Panel (PCR) - Final 02/15/22 18:25 Nasal Secretion SARS-CoV-2 Antigen (Rapid) - Final Physical Exam Const alert and oriented x3 Resp normal respiratory effort, no retractions, no use of accessory muscles and clear to auscultation bilaterally Cardio regular rate, regular rhythm, S1 normal heart sound and S2 normal heart sound GI normal to inspection, nondistended, normoactive bowel sounds, soft to palpation, non-tender and non-distended Assessment & Plan Assessment/Plan (1) Hypoxia: (2) Elevated troponin: (3) Gram-negative pneumonia: PLAN: Plan Gram-negative pneumonia with hypoxia -Doing well. Taken off oxygen. -Continue pulmonary toilet -Continue I-S/add Acapella -Continue Mucinex -Sputum culture sent and gram stain shows gram-negative rods/gram-negative cocci bacillus, Gram-positive rods and gram-positive rods--> organism identification is still pending. Cx still negative -Urine Legionella and strep pneumo antigens were negative -Respiratory viral PCR is negative -Continue azithromycin and ceftriaxone until cultures are identified -Anticipate patient will be able to go home tomorrow as long as she remains clinically stable -We will need home health care upon discharge and case management to follow- up to ascertain which home health care she would like Elevated troponin -Patient's troponin always appears to be elevated -Cardiac catheterization done on 05/2021 and patient was noted to have no obstructive disease -Continue home cardiac meds -Patient was interrogated without any issue -Echocardiogram done and shows an EF of 65% with mild left atrial enlargement, trivial mitral valve insufficiency, trivial tricuspid valve insufficiency and a right ventricular systolic pressure of 34 mmHg -No further work-up at this time History of TIA/stroke -Continue warfaribn PAF -INR is therapeutic but slightly elevated at 3.3 -Hold Coumadin today repeat INR in a.m. -Continue home beta-alissa Hypertension -Continue home carvedilol -As needed hydralazine available -Continue to monitor Hyperlipidemia -Continue home statin Hypothyroidism -Continue home levothyroxine GERD -Currently on no medication -Monitor History of sick sinus syndrome -Pacemaker in place -Device was interrogated without any issue History of breast cancer -No current issues -Patient with history of right mastectomy DVT prophylaxis -INR therapeutic CODE STATUS -Full code as per discussion on admission DC home
[2022-02-18] MEDS: guaiFENesin 1,200 MG Tablet 1200 MG PO (08:56)
[2022-02-18] MEDS: Ferrous Sulfate 325 MG Tablet PO (08:56)
[2022-02-18] MEDS: Loratadine 10 MG Tablet PO (08:57)
[2022-02-18] MEDS: Potassium Chloride Oral Tablet 10 MEQ PO (08:57)
[2022-02-18] MEDS: Carvedilol 12.5 MG Tablet PO (08:57)
[2022-02-18] MEDS: Cyanocobalamin 500 MCG Tablet 1000 MCG PO (08:57)
--- NOTE | 2022-02-18 10:01 | DCINST_ITS ---
Discharge Instructions Diet Discharge Diet: Low fat / Low cholesterol Activity Discharge Activity: Return to Normal Activity Dressing / Incision Call your doctor if you observe: Fever of 101 or Higher and Shortness of breath Follow Up Care Test Results: Test results from this visit will be discussed in further detail at your follow- up appointment, if applicable. Discharge Plan Admission Admit Date/Time: 02/15/22 22:43 Primary Reason for Your Visit: pneumonia Attending Provider: Dheeraj Small Primary Care Provider: Elmo Burdick Consulting Providers: Mireya Samson ; [facility] Discharge Orders/Prescriptions Prescriptions: New Mucus Relief ER 1,200 mg Tablet Extended Release 12hr 1,200 mg PO BID Qty: 10 0RF doxycycline hyclate 100 mg capsule 100 mg PO BID Qty: 8 0RF Continued levothyroxine 75 mcg tablet 75 mcg PO DAILY loratadine 10 mg tablet 10 mg PO DAILY carvedilol 12.5 mg tablet 12.5 mg PO BID Qty: 180 3RF Rx Instructions: must administer with a meal/food atorvastatin 20 MG tablet 20 mg PO QHS Label Comments: CHOLESTEROL MEDICATION cyanocobalamin (vitamin B-12) 1,000 MCG tablet 1,000 mcg PO DAILY potassium chloride 10 MEQ tablet extended release 10 meq PO DAILY Label Comments: TAKE 1 TABLET BY MOUTH EVERY DAY warfarin 5 mg Tablet 4 mg PO TUTH warfarin 4 mg Tablet 3 mg PO SUMOWEFRSA ferrous sulfate 325 mg (65 mg iron) tablet 325 mg PO DAILY Qty: 0 0RF Referrals / Follow Up: Elmo Burdick DO [Primary Care Provider] - Within 2 Weeks Disposition Disposition (needs filled in before D/C Order can be placed): Home Health Service
--- NOTE | 2022-02-18 10:07 | DS.PCM_ITS ---
Providers Date of Admission: 02/15/22 Primary Care Physician: Dr. Elmo Burdick, Reason For Visit: BRONCHITIS, HYPOXIA, ELEVATED TROP Diagnosis Discharge Diagnosis (1) Hypoxia: Status: Acute Code(s): R09.02 - Hypoxemia (2) Elevated troponin: Status: Acute Code(s): R77.8 - Other specified abnormalities of plasma proteins (3) Gram-negative pneumonia: Status: Acute Code(s): J15.6 - Pneumonia due to other Gram-negative bacteria Medications at Discharge Home Medications atorvastatin 20 mg tablet 20 mg PO QHS cholesterol 08/20/13 cyanocobalamin (vitamin B-12) 1,000 mcg tablet 1,000 mcg PO DAILY supplement 11/02/18 potassium chloride 10 mEq tablet,extended release 10 meq PO DAILY potassium 11/02/18 levothyroxine 75 mcg tablet 75 mcg PO DAILY thyroid 04/08/19 warfarin 4 mg tablet 3 mg PO SUMOWEFRSA Check with primary doctor 03/30/21 warfarin 5 mg tablet 4 mg PO TUTH Check with primary doctor 03/30/21 ferrous sulfate 325 mg (65 mg iron) tablet 325 mg PO DAILY anemia #0 tabs 05/23/21 loratadine 10 mg tablet 10 mg PO DAILY 06/19/21 carvedilol 12.5 mg tablet 12.5 mg PO BID #180 tabs 10/18/21 doxycycline hyclate 100 mg capsule 100 mg PO BID #8 caps 02/18/22 guaifenesin 1,200 mg tablet, extended release 12 hr (Mucus Relief ER) 1,200 mg PO BID #10 tabs 02/18/22 Hospital Course Operations None Procedures 2-D Echocardiogram Summary of Care Provided Minutes Spent on Discharge: 32 Hospital Course: This is an 86-year-old female presents with shortness of breath and hypoxia. Patient was found to have pneumonia and was started on azithromycin and ceftriaxone. Sputum culture was performed and thus far negative. Urinary antigen Streptococcus and Legionella negative. Patient did have elevated troponins which is chronic for her. Patient did previously have a left heart catheterization that showed no obstructive coronary disease. Patient has chronically elevated troponins not consistent with any myocardial ischemia so this therefore cannot be qualified as a non-STEMI. Patient today was taken off of oxygen and is overall feeling well. Patient will be discharged with 4 more days of doxycycline. Patient does have allergies to fluoroquinolones as well is penicillin and sulfa. Weight / BMI Weight Weight: 56.9 kg Body Mass Index (BMI) 19.4 ABG / Lab / Microbiology Data Result Diagrams: 02/16/22 06:00 02/18/22 04:56 Laboratory: Laboratory Results - last 24 hr 02/18/22 04:56: PT 29.1 H, INR 2.8 02/18/22 04:56: Sodium 140, Potassium 4.2, Chloride 106, Carbon Dioxide 31.0, Anion Gap 3 L, BUN 10, Creatinine 0.63, Estim Creat Clear Calc 36.27, Est GFR (MDRD) Af Amer 115, Est GFR (MDRD) Non-Af 95, BUN/Creatinine Ratio 15.9, Glucose 108 H, Calcium 8.6 Microbiology: Microbiology 02/16/22 03:33 Sputum, Expectorated/Coughed Gram Stain - Final 02/16/22 05:45 Urine, Clean Catch Legionella Antigen - Final 02/16/22 06:45 Urine, Clean Catch Streptococcus pneumoniae Antigen (M - F inal 02/16/22 00:25 Mucosa - Nose Respiratory Panel (PCR) - Final 02/15/22 18:25 Nasal Secretion SARS-CoV-2 Antigen (Rapid) - Final D/C Instructions Discharge Diet: Low fat / Low cholesterol Call your doctor if you observe: Fever of 101 or Higher and Shortness of breath Meaningful Use Info Meaningful Use Diagnoses (Choose all that apply): None applicable Discharge Plan Admission Admit Date/Time: 02/15/22 22:43 Primary Reason for Your Visit: pneumonia Attending Provider: Dheeraj Small Primary Care Provider: Elmo Burdick Consulting Providers: Mireya Samson ; [facility] Discharge Orders/Prescriptions Prescriptions: New Mucus Relief ER 1,200 mg Tablet Extended Release 12hr 1,200 mg PO BID Qty: 10 0RF doxycycline hyclate 100 mg capsule 100 mg PO BID Qty: 8 0RF Continued levothyroxine 75 mcg tablet 75 mcg PO DAILY loratadine 10 mg tablet 10 mg PO DAILY carvedilol 12.5 mg tablet 12.5 mg PO BID Qty: 180 3RF Rx Instructions: must administer with a meal/food atorvastatin 20 MG tablet 20 mg PO QHS Label Comments: CHOLESTEROL MEDICATION cyanocobalamin (vitamin B-12) 1,000 MCG tablet 1,000 mcg PO DAILY potassium chloride 10 MEQ tablet extended release 10 meq PO DAILY Label Comments: TAKE 1 TABLET BY MOUTH EVERY DAY warfarin 5 mg Tablet 4 mg PO TUTH warfarin 4 mg Tablet 3 mg PO SUMOWEFRSA ferrous sulfate 325 mg (65 mg iron) tablet 325 mg PO DAILY Qty: 0 0RF Referrals / Follow Up: Elmo Burdick DO [Primary Care Provider] - Within 2 Weeks Disposition Disposition (needs filled in before D/C Order can be placed): Home Health Service Charges/Coding Visit Charges Inpatient E&M: 32929 Disch Hosp
--- NOTE | 2022-02-18 10:23 | NURSING ---
Abiola at [facility] notified of need for home oxygen set up and that we have a portable tank to send with patient. Prescription faxed to [facility].
--- NOTE | 2022-02-18 10:32 | NURSING ---
Jake, delivery room supervisor with [employer], phoned and stated that he will make contact with patient to set up delivery of home oxygen.
[2022-02-18] MEDS: 0.9% Saline Lock 10 ML Syringe IV (10:55)
--- NOTE | 2022-02-19 15:02 | CASEMGMT ---
This RN PHYLLIS had spoken with pt about C on 02/16/22 and advised would f/u to see if she would like [facility] set up. Call to pt and phone goes straight VM and message left for pt to call this RN PHYLLIS back if she would like [facility] set up. Carla ROBLES CM
== END 2022-02-18 11:49 | disposition home health service (06) | DRG 194 ==
LOC: ED 22:04 → PCU 23:38
PROVIDERS: Internal Medicine; Admitting Provider Family Medicine; Emergency Provider Emergency Medicine; PCP Student in an Organized Health Care Education/Training Program
DX: J14 Pneumonia due to Hemophilus influenzae (principal); I42.8 Other cardiomyopathies; I45.2 Bifascicular block; I49.5 Sick sinus syndrome; I48.0 Paroxysmal atrial fibrillation; K21.9 Gastro-esophageal reflux disease without esophagitis; E78.5 Hyperlipidemia, unspecified; I10 Essential (primary) hypertension; E03.9 Hypothyroidism, unspecified; I25.2 Old myocardial infarction; R09.02 Hypoxemia; R77.8 Other specified abnormalities of plasma proteins; Z95.0 Presence of cardiac pacemaker; Z90.11 Acquired absence of right breast and nipple; Z79.01 Long term (current) use of anticoagulants; Z79.899 Other long term (current) drug therapy; Z85.3 Personal history of malignant neoplasm of breast; Z86.73 Personal history of transient ischemic attack (TIA), and cerebral infarction without residual deficits; Z87.891 Personal history of nicotine dependence
CPT/HCPCS: 36415; 71045; 80048; 80053; 80061; 83735; 84145; 84484; 85025; 85379; 85610; 87070; 87077; 87205; 87449; 87633; 87811; 93005; 93306; 94760; 97162; 99285; J7030; J7040; Q9957; A4216; C8929; J0696

== ENCOUNTER 2022-03-05 16:29 | Emergency (ER) | payer MEDICARE, OTHER, SELFPAY ==
[2022-03-05 16:31] VITALS: BP 127/59; PULSE 74; RESP 13; TEMP 36.7; O2SAT 95; BMI 22.1
--- NOTE | 2022-03-05 16:42 | CT_ITS ---
STUDY: CT BRAIN WITHOUT CONTRAST REASON FOR EXAM: Female, 86 years old. WEAKNESS tia TECHNIQUE: Transaxial CT imaging of the brain was performed without administration of intravenous contrast material. Individualized dose optimization techniques were used for this CT. COMPARISON: 10.06.21 FINDINGS: Normal calvarium. Normal soft tissues. There is an old infarct of the right MCA distribution. There is mild cerebral atrophy with widening of the extra-axial spaces and ventricular dilatation. There are areas of decreased attenuation within the white matter tracts of the supratentorial brain, consistent with microvascular disease changes. Normal basal ganglia and thalami. Normal brainstem. Normal cerebellum. There is no intracranial hemorrhage. There are no findings of an acute ischemic infarction. There are calcifications noted in the distal vertebral arteries. There are calcifications noted in the cavernous carotid arteries. This is consistent for atherosclerotic disease. Normal visualized paranasal sinuses. ASPECTS 10 CT/Brain/Head without Contrast IMPRESSION: There are no acute intracranial findings. Electronically Signed: Attila Jurado MD at 17:32 EDT ,
--- NOTE | 2022-03-05 16:44 | EX.ED.DYSGE1 ---
HPI History of Present Illness Chief Complaint: Weakness Narrative Narrative: 86-year-old female presenting with paresthesia in the right arm. She states that she was in the restroom and had her right arm on the counter next to her. She states that it started to feel little bit tingly. She states he was still able to move it and this only lasted a very brief time. She is not able to tell me how many seconds it was. She states it could have possibly been the position she was in. She did call out to her friend and stated to her I think I am having a stroke. By the time the patient's friend came in the symptoms have resolved. She denies headache, visual complaint, current paresthesia. No slurred speech or confusion. She is able to move all 4 extremities. She does not have any chest pain or shortness of breath. She has been otherwise well. No fever, chills. [facility] Medical History Acute GI bleeding Anticoagulated on Coumadin Atrial fibrillation with RVR Back pain Cerebrovascular disease Chronic antral gastritis CVA (cerebral vascular accident) Elevated blood pressure reading in office with white coat syndrome, without diagnosis of hypertension Elevated troponin (06/16/20) Elevated troponin Elevation of cardiac enzymes Essential (primary) hypertension Gastric polyp History of breast cancer History of non-ST elevation myocardial infarction (NSTEMI) (05/23/21) History of TIA (transient ischemic attack) (06/16/20) History of vasculitis Hypercoagulable state Hyperlipidemia Hypokalemia Hypothyroidism Lower gastrointestinal bleeding Multiple premature ventricular complexes Non-ischemic cardiomyopathy Orthostatic hypotension Osteoarthritis of spine Paroxysmal atrial fibrillation Patent foramen ovale Pre-syncope Right bundle branch block (RBBB) Sick sinus syndrome Stenosis of left carotid artery Syncope Vasculitis Home Medications atorvastatin 20 mg tablet 20 mg PO QHS cholesterol 08/20/13 [History Last Taken 03/29/21] cyanocobalamin (vitamin B-12) 1,000 mcg tablet 1,000 mcg PO DAILY supplement 11/02/18 [History Last Taken 03/30/21] potassium chloride 10 mEq tablet,extended release 10 meq PO DAILY potassium 11/02/18 [History Last Taken 03/30/21] levothyroxine 75 mcg tablet 75 mcg PO DAILY thyroid 04/08/19 [History Last Taken 03/30/21] warfarin 4 mg tablet 3 mg PO SUMOWEFRSA blood thinner 03/30/21 [History Last Taken 03/29/21] warfarin 5 mg tablet 4 mg PO TUTH blood thinner 03/30/21 [History Last Taken 03/29/21] ferrous sulfate 325 mg (65 mg iron) tablet 325 mg PO DAILY anemia #0 tabs 05/23/21 [Rx Last Taken 03/30/21] loratadine 10 mg tablet 10 mg PO DAILY allergies 06/19/21 [History Last Taken Unknown] carvedilol 12.5 mg tablet 12.5 mg PO BID #180 tabs 10/18/21 [Rx Last Taken Unknown] Allergy/AdvReac Type Severity Reaction Status Date / Time omeprazole Allergy Severe Swelling Verified 03/05/22 16:31 lansoprazole Allergy Intermediate edema Verified 03/05/22 16:31 levofloxacin [From Levaquin] Allergy Angioedema Verified 03/05/22 16:31 lisinopril Allergy Swelling Verified 03/05/22 16:31 Penicillins Allergy Itching Verified 03/05/22 16:31 Sulfa (Sulfonamide Allergy Angioedema Verified 03/05/22 16:31 Antibiotics) amlodipine AdvReac Severe severe Verified 03/05/22 16:31 hypotension Family History Father Myocardial infarction Sister CAD (coronary artery disease) Stents Brother CVA (cerebral vascular accident) Surgical History History of colonoscopy (08/2018) History of esophagogastroduodenoscopy (EGD) (08/2018) History of left heart catheterization (05/23/21) History of open reduction and internal fixation (ORIF) procedure History of permanent cardiac 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) History of right mastectomy Social History household members: family Smoking Status: Former smoker Tobacco: How many years used: 20 how long ago did patient quit smokin years ago second hand exposure: No alcohol intake: current alcohol intake frequency: holidays/special occasions only substance use type: does not use caffeine: No ROS ROS ED Constitutional Constitutional ED: Denies chills or fever(s) Eyes Eyes: Denies change in vision or diplopia ENT ENT ED: Denies rhinorrhea or sore throat Cardiovascular Cardiovascular: Denies chest pain or palpitations Respiratory/Chest Respiratory/Chest: Denies cough or dyspnea Gastrointestinal Gastrointestinal: Denies abdominal pain or constipation Genitourinary Genitourinary ED: Denies dysuria or hematuria Musculoskeletal Musculoskeletal: Denies arthralgias or back pain Integumentary Denies abscess or Abrasions Neurologic Neurologic: Reports paresthesias RUE Psychiatric Psychiatric: Denies anxiety or depression EXAM Physical Exam Const Vital Signs: 03/05/22 16:31 03/05/22 16:35 03/05/22 18:32 Temperature 98.1 F Temperature Source Temporal Pulse Rate 74 60 Respiratory Rate 13 20 H Respiratory Effort Normal Respiratory Pattern Normal Blood Pressure 127/59 H 116/87 H Blood Pressure Mean 81 Pulse Ox 95 95 Oxygen Delivery Method Room Air Positive well nourished General Appearance ED: NAD; Negative for pallor HEENT Reports normocephalic, head/scalp atraumatic and moist mucous membranes Eyes PERRL and EOMs intact bilaterally Neck no lymphadenopathy and supple Chest Wall inspection of chest normal and palpation of chest normal Resp normal respiratory effort and clear to auscultation bilaterally Auscultation: Negative for rales, rhonchi or wheezes Cardio regular rate and regular rhythm GI normal to inspection, nondistended, normoactive bowel sounds and non-distended Auscultation: normoactive bowel sounds Palpation: soft Narrative: Deferred Back/Spine Cervical Spine: Negative for cervical spine tenderness Thoracic Spine / Upper Back: Negative for thoracic spinal tenderness Extremity normal to inspection General Extremety ED: Yes edema and tenderness General Extremity: edema Neuro oriented x3, CN's II-XII intact bilaterally and no sensory deficits noted Neuro Narrative: NIH stroke scale score equals 0 Sensorium / Orientation: alert Sensory Exam: No sensory level loss detected Motor Exam: strength 5/5 throughout; Negative for general weakness Psych mental status grossly normal Attitude: No agitated Skin no rashes or lesions noted and no wounds General Skin Exam: Negative for jaundice or pallor MDM MDM MDM Narrative Medical decision making narrative: Patient presenting with some numbness in the right arm which lasted just a short time. She reports that she had her arm up on the side of the counter when she was going to the restroom and thinks it fell asleep. She was able to shake this out in the bathroom. She had no facial droop, slurred speech, confusion, lightheadedness, dizziness, visual changes. She does have history of TIA in the past. Patient anticoagulated on Coumadin for history of atrial fibrillation. EKG was obtained on arrival and on my interpretation this shows a sinus rhythm with a ventricular rate 61 bpm with right bundle branch block pattern. CBC and BMP unremarkable. High-sensitivity troponin is elevated at 91 but this is what was her last hospital visit and is unchanged. Patient not reporting any chest pain. CT of the brain is negative for any acute intracranial findings. I think her symptoms do not sound like a TIA. I do not think she needs to be hospitalized for this. Patient again is anticoagulated on Coumadin as well and is therapeutic today at 2.0. NIH score was 0. I recommended to her that she follow-up with her PCP to ensure resolution and if she has any new or worsening symptoms return to ER. Impression: 1 right upper extremity paresthesia?resolved Lab Data Attestation: I reviewed the patient's lab results. Labs: Laboratory Results - last 24 hr 03/05/22 03/05/22 03/05/22 16:12 16:12 16:12 WBC 4.8 RBC 4.25 Hgb 12.4 Hct 39.6 MCV 93.2 MCH 29.2 MCHC 31.3 L RDW Std Deviation 44.6 H RDW Coeff of Duc 13.2 Plt Count 286 MPV 9.3 Immature Gran % (Auto) 0.200 Neut % (Auto) 46.1 L Lymph % (Auto) 39.3 [place] % (Auto) 9.3 Eos % (Auto) 4.3 Baso % (Auto) 0.8 Absolute Neuts (auto) 2.2 Absolute Lymphs (auto) 1.90 Nucleated RBC % 0 PT 22.1 H INR 2.0 Sodium 143 Potassium 4.1 Chloride 109 H Carbon Dioxide 33.0 H Anion Gap 1 L BUN 17 Creatinine 0.82 Estim Creat Clear Calc 47.89 Est GFR (MDRD) Af Amer 85 Est GFR (MDRD) Non-Af 70 BUN/Creatinine Ratio 20.7 H Glucose 114 H Calcium 8.9 Troponin I High Sens 91 H Radiography Diagnostic Testing: Clinical Impression(s) from Imaging Studies Brain CT 03/05/22 16:42 IMPRESSION: There are no acute intracranial findings. Electronically Signed: Attila Jurado MD at 17:32 EDT , Chest X-Ray 03/05/22 17:13 IMPRESSION: There are no acute findings. Electronically Signed: Attila Jurado MD at 17:34 EDT , Discharge Plan Triage Chief Complaint: Weakness ED Provider: Jose Benjamin Dx/Rx/DC Orders Instructions: ED Paraesthesias Prescriptions: No Action levothyroxine 75 mcg tablet 75 mcg PO DAILY loratadine 10 mg tablet 10 mg PO DAILY carvedilol 12.5 mg tablet 12.5 mg PO BID Qty: 180 3RF Rx Instructions: must administer with a meal/food atorvastatin 20 MG tablet 20 mg PO QHS Label Comments: CHOLESTEROL MEDICATION cyanocobalamin (vitamin B-12) 1,000 MCG tablet 1,000 mcg PO DAILY potassium chloride 10 MEQ tablet extended release 10 meq PO DAILY Label Comments: TAKE 1 TABLET BY MOUTH EVERY DAY warfarin 5 mg Tablet 4 mg PO TUTH warfarin 4 mg Tablet 3 mg PO SUMOWEFRSA ferrous sulfate 325 mg (65 mg iron) tablet 325 mg PO DAILY Qty: 0 0RF Primary Care Provider: Elmo Burdick Referrals: Elmo Burdick DO [Primary Care Provider] - Disposition Disposition: Home, Self Care Discharge Date/Time: 03/05/22 19:02
[2022-03-05 16:55] LABS: Absolute Neutrophil Count 2.2 X10^3/uL (2.0-7.7); Basophil# 0.04 X10^3/uL; Basophil% 0.8 % (0-1); Eosinophil# 0.21 X10^3/uL; Eosinophils% 4.3 % (0-5); Hematocrit 39.6 % (37-47); Hemoglobin 12.4 g/dL (12.0-15.0); Lymphocyte % 39.3 % (19-41); Mean Corp Hgb Conc 31.3 g/dL (32-36); Mean Corpuscular Hgb 29.2 pg (27.0-32.0); Mean Corpuscular Volume 93.2 fL (81-99); Mean Platelet Vol. 9.3 fl (6.2-12.0); Monocyte# 0.45 X10^3/uL; Monocyte% 9.3 % (0-10); NRBC Flagged by Analyzer 0 % (0-5); Neutrophil # 2.23 X10^3/uL (2.7-7.7); Neutrophil % 46.1 % (47-70); Platelet Count 286 K/mm3 (150-450); RBC Distribution Width CV 13.2 % (11.6-14.6); RBC Distribution Width SD 44.6 fl (35.1-43.9); Red Blood Count 4.25 M/mm3 (4.2-5.4); White Blood Count 4.8 K/mm3 (4.4-11.0)
[2022-03-05 17:01] LABS: Prothrombin Time (Protime)PT. 22.1 SECONDS (11.7-14.9)
[2022-03-05 17:10] LABS: Anion Gap 1 (5-15); BUN 17 mg/dL (7-18); BUN/Creat Ratio 20.7 RATIO (10-20); Calcium,Total 8.9 mg/dL (8.5-10.1); Chloride 109 mmol/L (98-107); Creatinine, Serum 0.82 mg/dL (0.55-1.02); EST Glomerular Filtration Rate 70 mL/min (>60); Est Glom Filt Rate - Afr Amer 85 mL/min (>60); Estimated Creatinine Clearance 47.89 ml/min; Glucose 114 mg/dL (74-106); Potassium 4.1 mmol/L (3.5-5.1); Sodium Level 143 mmol/L (136-145); Troponin-I HS 91 pg/mL (3.0-54.0)
--- NOTE | 2022-03-05 17:13 | RAD_ITS ---
STUDY: X-RAY CHEST REASON FOR EXAM: Female, 86 years old. weakness TECHNIQUE: XR Chest 1 View COMPARISON: 02.15.22 FINDINGS: There is no demonstrated pleural abnormality. There is a left sided pacemaker batterypack. Normal size heart. Normal mediastinum and roc. Normal visualized pulmonary arteries. There is atherosclerotic calcification of the aortic arch with tortuosity. There are diffuse degenerative changes of the visualized thoracic spine. There is degenerative osteoarthritis of the bilateral shoulders. There is no demonstrated abnormality of the visualized soft tissue structures of the upper abdomen. RAD/Chest 1 View (Portable) IMPRESSION: There are no acute findings. Electronically Signed: Attila Jurado MD at 17:34 EDT ,
[2022-03-05 18:32] VITALS: BP 116/87; PULSE 60; RESP 20; O2SAT 95
== END 2022-03-05 19:02 | disposition home or self-care (01) ==
PROVIDERS: Emergency Provider Student in an Organized Health Care Education/Training Program; PCP Student in an Organized Health Care Education/Training Program; Visit Provider Student in an Organized Health Care Education/Training Program
DX: R53.1 Weakness (principal); I48.91 Unspecified atrial fibrillation; I10 Essential (primary) hypertension; I45.10 Unspecified right bundle-branch block; E78.5 Hyperlipidemia, unspecified; E03.9 Hypothyroidism, unspecified; Z79.01 Long term (current) use of anticoagulants; Z87.891 Personal history of nicotine dependence
CPT/HCPCS: 70450; 71045; 80048; 84484; 85025; 85610; 93005; 99284

== ENCOUNTER → 2022-03-11 | Outpatient (REF) | payer SELFPAY ==
[2022-03-11 08:38] LABS: Hematocrit 37.7 % (37-47); Hemoglobin 12.3 g/dL (12.0-15.0); Mean Corp Hgb Conc 32.6 g/dL (32-36); Mean Corpuscular Hgb 29.6 pg (27.0-32.0); Mean Corpuscular Volume 90.8 fL (81-99); Mean Platelet Vol. 9.3 fl (6.2-12.0); Platelet Count 235 K/mm3 (150-450); RBC Distribution Width CV 13.1 % (11.6-14.6); RBC Distribution Width SD 43.8 fl (35.1-43.9); Red Blood Count 4.15 M/mm3 (4.2-5.4); White Blood Count 7.1 K/mm3 (4.4-11.0)
[2022-03-11 08:46] LABS: International Normalized Ratio 1.8
[2022-03-11 09:06] LABS: Anion Gap 8 (5-15); BUN 18 mg/dL (7-18); BUN/Creat Ratio 24.7 RATIO (10-20); Calcium,Total 9.4 mg/dL (8.5-10.1); Chloride 104 mmol/L (98-107); Creatinine, Serum 0.73 mg/dL (0.55-1.02); EST Glomerular Filtration Rate 81 mL/min (>60); Est Glom Filt Rate - Afr Amer 97 mL/min (>60); Glucose 102 mg/dL (74-106); Potassium 3.7 mmol/L (3.5-5.1); Sodium Level 141 mmol/L (136-145)
== END | disposition home or self-care (01) ==
LOC: OLS.SW1020 04:00
PROVIDERS: PCP Student in an Organized Health Care Education/Training Program; Referring Provider Family Medicine; Visit Provider Family Medicine
DX: Z02.2 Encounter for examination for admission to residential institution (principal); Z79.01 Long term (current) use of anticoagulants
CPT/HCPCS: 36415; 80048; 85027; 85610

== ENCOUNTER → 2022-03-14 | Outpatient (REF) | payer SELFPAY ==
[2022-03-14 08:13] LABS: Hematocrit 35.6 % (37-47); Hemoglobin 11.2 g/dL (12.0-15.0); Mean Corp Hgb Conc 31.5 g/dL (32-36); Mean Corpuscular Hgb 28.9 pg (27.0-32.0); Mean Corpuscular Volume 91.8 fL (81-99); Mean Platelet Vol. 9.6 fl (6.2-12.0); Platelet Count 222 K/mm3 (150-450); RBC Distribution Width CV 13.4 % (11.6-14.6); Red Blood Count 3.88 M/mm3 (4.2-5.4); White Blood Count 4.5 K/mm3 (4.4-11.0)
[2022-03-14 08:25] LABS: Anion Gap 5 (5-15); BUN 14 mg/dL (7-18); BUN/Creat Ratio 19.7 RATIO (10-20); Calcium,Total 8.8 mg/dL (8.5-10.1); Chloride 107 mmol/L (98-107); Creatinine, Serum 0.71 mg/dL (0.55-1.02); EST Glomerular Filtration Rate 83 mL/min (>60); Est Glom Filt Rate - Afr Amer 101 mL/min (>60); Glucose 93 mg/dL (74-106); Potassium 3.8 mmol/L (3.5-5.1); Sodium Level 142 mmol/L (136-145)
[2022-03-14 09:04] LABS: International Normalized Ratio 2.9; Prothrombin Time (Protime)PT. 30.1 SECONDS (11.7-14.9)
== END | disposition home or self-care (01) ==
LOC: OLS.SW1020 04:00
PROVIDERS: PCP Student in an Organized Health Care Education/Training Program; Visit Provider Family Medicine
DX: I10 Essential (primary) hypertension (principal); E78.5 Hyperlipidemia, unspecified; Z79.01 Long term (current) use of anticoagulants
CPT/HCPCS: 36415; 80048; 85027; 85610

== ENCOUNTER → 2022-03-25 | Outpatient (REF) | payer MEDICARE, OTHER, SELFPAY ==
[2022-03-25 06:55] LABS: INR Fingerstick 2.1; Prothrombin Time Fingerstick 24.5 SEC (11.7-14.9)
== END ==
LOC: OLS.DANBUR 05:00
PROVIDERS: PCP Student in an Organized Health Care Education/Training Program; Visit Provider Family Medicine
DX: Z79.01 Long term (current) use of anticoagulants (principal)
CPT/HCPCS: 36416; 85610

== ENCOUNTER → 2022-04-25 | Outpatient (REF) | payer MEDICARE, OTHER, SELFPAY ==
[2022-04-25 06:55] LABS: Prothrombin Time Fingerstick 23.5 SEC (11.7-14.9)
== END ==
LOC: OLS.DANBUR 05:00
PROVIDERS: PCP Student in an Organized Health Care Education/Training Program; Visit Provider Student in an Organized Health Care Education/Training Program
DX: Z79.01 Long term (current) use of anticoagulants (principal)
CPT/HCPCS: 36416; 85610

== ENCOUNTER → 2022-05-23 | Outpatient (REF) | payer MEDICARE, OTHER, SELFPAY ==
[2022-05-23 08:45] LABS: Prothrombin Time Fingerstick 24.1 SEC (11.7-14.9)
== END ==
LOC: OLS.DANBUR 05:00
PROVIDERS: PCP Student in an Organized Health Care Education/Training Program; Visit Provider Family Medicine
DX: Z79.01 Long term (current) use of anticoagulants (principal)
CPT/HCPCS: 36416; 85610

== ENCOUNTER → 2022-06-20 | Outpatient (REF) | payer MEDICARE, OTHER, SELFPAY ==
[2022-06-20 08:56] LABS: INR Fingerstick 2.3
== END ==
LOC: OLS.DANBUR 05:00
PROVIDERS: PCP Student in an Organized Health Care Education/Training Program; Visit Provider Family Medicine
DX: Z79.01 Long term (current) use of anticoagulants (principal)
CPT/HCPCS: 36416; 85610

== ENCOUNTER → 2022-07-18 | Outpatient (REF) | payer MEDICARE, OTHER, SELFPAY ==
[2022-07-18 08:56] LABS: INR Fingerstick 2.3; Prothrombin Time Fingerstick 26.5 SEC (11.7-14.9)
== END ==
LOC: OLS.DANBUR 05:00
PROVIDERS: PCP Student in an Organized Health Care Education/Training Program; Visit Provider Family Medicine
DX: Z79.01 Long term (current) use of anticoagulants (principal)
CPT/HCPCS: 36416; 85610

== ENCOUNTER → 2022-08-01 | Outpatient (REF) | payer MEDICARE, OTHER, SELFPAY ==
[2022-08-01 09:12] LABS: Hematocrit 41.2 % (37-47); Mean Corp Hgb Conc 31.6 g/dL (32-36); Mean Corpuscular Hgb 29.2 pg (27.0-32.0); Mean Corpuscular Volume 92.6 fL (81-99); Mean Platelet Vol. 9.4 fl (6.2-12.0); Platelet Count 218 K/mm3 (150-450); RBC Distribution Width CV 12.6 % (11.6-14.6); RBC Distribution Width SD 42.9 fl (35.1-43.9); Red Blood Count 4.45 M/mm3 (4.2-5.4)
[2022-08-01 09:39] LABS: ALB/GLOB Ratio 0.8 RATIO (0.9-2.4); AST(SGOT) 13 U/L (15-37); Alanine Aminotransfer ALT/SGPT 12 U/L (13-56); Alkaline Phosphatase 90 U/L (45-117); Anion Gap 1 (5-15); BUN 9 mg/dL (7-18); BUN/Creat Ratio 13.7 RATIO (10-20); Calcium,Total 8.8 mg/dL (8.5-10.1); Chloride 105 mmol/L (98-107); Creatinine, Serum 0.66 mg/dL (0.55-1.02); EST Glomerular Filtration Rate 90 mL/min (>60); Est Glom Filt Rate - Afr Amer 109 mL/min (>60); Globulin 3.9 g/dL (2.2-4.2); Glucose 101 mg/dL (74-106); Potassium 4.3 mmol/L (3.5-5.1); Protein, Total 6.9 g/dL (6.4-8.2); Sodium Level 139 mmol/L (136-145); Thyroid Stim Hormone (TSH) 0.76 uIU/mL (0.358-3.74)
== END ==
LOC: OLS.DANBUR 05:00
PROVIDERS: PCP Student in an Organized Health Care Education/Training Program; Visit Provider Family Medicine
DX: D64.9 Anemia, unspecified (principal); I10 Essential (primary) hypertension; E03.9 Hypothyroidism, unspecified
CPT/HCPCS: 36415; 80053; 84443; 85027

== ENCOUNTER → 2022-08-02 | Outpatient (REF) | payer MEDICARE, OTHER, SELFPAY ==
[2022-08-02 07:56] LABS: INR Fingerstick 1.8; Prothrombin Time Fingerstick 21.3 SEC (11.7-14.9)
== END ==
LOC: OLS.DANBUR 05:00
PROVIDERS: PCP Student in an Organized Health Care Education/Training Program; Visit Provider Family Medicine
DX: Z79.01 Long term (current) use of anticoagulants (principal)
CPT/HCPCS: 36416; 85610

== ENCOUNTER → 2022-08-15 | Outpatient (REF) | payer MEDICARE, OTHER, SELFPAY ==
[2022-08-15 06:41] LABS: INR Fingerstick 2.4; Prothrombin Time Fingerstick 27.6 SEC (11.7-14.9)
== END ==
LOC: OLS.DANBUR 05:00
PROVIDERS: PCP Student in an Organized Health Care Education/Training Program; Visit Provider Family Medicine
DX: N39.0 Urinary tract infection, site not specified (principal); Z79.01 Long term (current) use of anticoagulants
CPT/HCPCS: 36416; 85610

== ENCOUNTER → 2022-08-29 | Outpatient (REF) | payer MEDICARE, OTHER, SELFPAY ==
[2022-08-29 09:45] LABS: INR Fingerstick 3.3; Prothrombin Time Fingerstick 37.3 SEC (11.7-14.9)
== END ==
LOC: OLS.DANBUR 05:00
PROVIDERS: PCP Student in an Organized Health Care Education/Training Program; Visit Provider Family Medicine
DX: Z79.01 Long term (current) use of anticoagulants (principal)
CPT/HCPCS: 36416; 85610

== ENCOUNTER → 2022-09-11 | Outpatient (REF) | payer MEDICARE, OTHER, SELFPAY ==
[2022-09-11 07:51] LABS: INR Fingerstick 2.9; Prothrombin Time Fingerstick 33.6 SEC (11.7-14.9)
== END ==
LOC: OLS.DANBUR 05:00
PROVIDERS: PCP Student in an Organized Health Care Education/Training Program; Visit Provider Family Medicine
DX: Z79.01 Long term (current) use of anticoagulants (principal)
CPT/HCPCS: 36416; 85610

== ENCOUNTER → 2022-10-10 | Outpatient (REF) | payer MEDICARE, OTHER, SELFPAY ==
[2022-10-10 08:40] LABS: Prothrombin Time Fingerstick 33.7 SEC (11.7-14.9)
== END ==
LOC: OLS.DANBUR 05:00
PROVIDERS: PCP Student in an Organized Health Care Education/Training Program; Visit Provider Family Medicine
DX: Z79.01 Long term (current) use of anticoagulants (principal)
CPT/HCPCS: 36416; 85610

== ENCOUNTER → 2022-11-07 | Outpatient (REF) | payer MEDICARE, OTHER, SELFPAY ==
[2022-11-07 08:45] LABS: INR Fingerstick 3.8; Prothrombin Time Fingerstick 39.9 SEC (11.7-14.9)
== END ==
LOC: OLS.DANBUR 05:00
PROVIDERS: PCP Student in an Organized Health Care Education/Training Program; Visit Provider Family Medicine
DX: Z79.01 Long term (current) use of anticoagulants (principal)
CPT/HCPCS: 36416; 85610

== ENCOUNTER → 2022-11-14 | Outpatient (REF) | payer MEDICARE, OTHER, SELFPAY ==
[2022-11-14 08:40] LABS: INR Fingerstick 2.4
== END ==
LOC: OLS.DANBUR 05:00
PROVIDERS: PCP Student in an Organized Health Care Education/Training Program; Visit Provider Family Medicine
DX: Z79.01 Long term (current) use of anticoagulants (principal)
CPT/HCPCS: 36416; 85610

== ENCOUNTER → 2022-11-28 | Outpatient (REF) | payer MEDICARE, OTHER, SELFPAY ==
[2022-11-28 08:24] LABS: Hematocrit 38.1 % (37-47); Hemoglobin 12.2 g/dL (12.0-15.0); Mean Corpuscular Volume 93.6 fL (81-99); Mean Platelet Vol. 9.6 fl (6.2-12.0); Platelet Count 213 K/mm3 (150-450); RBC Distribution Width CV 13.2 % (11.6-14.6); RBC Distribution Width SD 45.3 fl (35.1-43.9); Red Blood Count 4.07 M/mm3 (4.2-5.4); White Blood Count 5.1 K/mm3 (4.4-11.0)
[2022-11-28 08:47] LABS: Vitamin B12 649 pg/mL (211-911)
[2022-11-28 09:19] LABS: Ferritin 322 ng/mL (8-252); Iron 70 ug/dL (50-170); Iron Binding Capacity,Total 200 ug/dL (250-450)
== END ==
LOC: OLS.DANBUR 06:10
PROVIDERS: PCP Student in an Organized Health Care Education/Training Program; Visit Provider Family Medicine
DX: D51.9 Vitamin B12 deficiency anemia, unspecified (principal); D64.9 Anemia, unspecified
CPT/HCPCS: 36415; 82607; 82728; 83540; 83550; 85027

== ENCOUNTER → 2022-12-12 | Outpatient (REF) | payer MEDICARE, OTHER, SELFPAY ==
[2022-12-12 07:31] LABS: INR Fingerstick 2.9; Prothrombin Time Fingerstick 31.6 SEC (11.7-14.9)
== END ==
LOC: OLS.DANBUR 05:00
PROVIDERS: PCP Student in an Organized Health Care Education/Training Program; Visit Provider Family Medicine
DX: Z79.01 Long term (current) use of anticoagulants (principal)
CPT/HCPCS: 36416; 85610

== ENCOUNTER → 2023-01-09 | Outpatient (REF) | payer MEDICARE, OTHER, SELFPAY ==
[2023-01-09 07:00] LABS: INR Fingerstick 3.2; Prothrombin Time Fingerstick 34.4 SEC (11.7-14.9)
== END ==
LOC: OLS.DANBUR 05:00
PROVIDERS: PCP Student in an Organized Health Care Education/Training Program; Visit Provider Family Medicine
DX: Z79.01 Long term (current) use of anticoagulants (principal)
CPT/HCPCS: 36416; 85610

== ENCOUNTER → 2023-02-06 | Outpatient (REF) | payer MEDICARE, OTHER, SELFPAY ==
[2023-02-06 08:53] LABS: INR Fingerstick 2.1; Prothrombin Time Fingerstick 23.3 SEC (11.7-14.9)
== END ==
LOC: OLS.DANBUR 05:00
PROVIDERS: PCP Student in an Organized Health Care Education/Training Program; Visit Provider Family Medicine
DX: Z79.01 Long term (current) use of anticoagulants (principal)
CPT/HCPCS: 36416; 85610

== ENCOUNTER → 2023-03-06 | Outpatient (REF) | payer MEDICARE, OTHER, SELFPAY ==
[2023-03-06 09:36] LABS: INR Fingerstick 2.8; Prothrombin Time Fingerstick 30.2 SEC (11.7-14.9)
== END ==
LOC: OLS.DANBUR 05:00
PROVIDERS: PCP Student in an Organized Health Care Education/Training Program; Visit Provider Family Medicine
DX: Z79.01 Long term (current) use of anticoagulants (principal)
CPT/HCPCS: 36416; 85610

== ENCOUNTER → 2023-04-03 | Outpatient (REF) | payer MEDICARE, OTHER, SELFPAY ==
[2023-04-03 08:53] LABS: INR Fingerstick 3.5; Prothrombin Time Fingerstick 36.7 SEC (11.7-14.9)
== END ==
LOC: OLS.DANBUR 05:00
PROVIDERS: PCP Student in an Organized Health Care Education/Training Program; Visit Provider Family Medicine
DX: Z79.01 Long term (current) use of anticoagulants (principal)
CPT/HCPCS: 36416; 85610

== ENCOUNTER → 2023-04-17 | Outpatient (REF) | payer MEDICARE, OTHER, SELFPAY ==
[2023-04-17 10:14] LABS: INR Fingerstick 2.3
== END ==
LOC: OLS.DANBUR 05:00
PROVIDERS: PCP Student in an Organized Health Care Education/Training Program; Visit Provider Family Medicine
DX: Z79.01 Long term (current) use of anticoagulants (principal)
CPT/HCPCS: 36416; 85610

== ENCOUNTER → 2023-05-15 | Outpatient (REF) | payer MEDICARE, OTHER, SELFPAY ==
[2023-05-15 08:16] LABS: INR Fingerstick 2.3; Prothrombin Time Fingerstick 25.5 SEC (11.7-14.9)
== END ==
LOC: OLS.DANBUR 05:00
PROVIDERS: PCP Student in an Organized Health Care Education/Training Program; Visit Provider Family Medicine
DX: Z79.01 Long term (current) use of anticoagulants (principal)
CPT/HCPCS: 36416; 85610

== ENCOUNTER → 2023-06-19 | Outpatient (REF) | payer MEDICARE, OTHER, SELFPAY ==
[2023-06-19 08:12] LABS: INR Fingerstick 2.9; Prothrombin Time Fingerstick 31.1 SEC (11.7-14.9)
== END ==
LOC: OLS.DANBUR 05:00
PROVIDERS: PCP Student in an Organized Health Care Education/Training Program; Visit Provider Family Medicine
DX: Z79.01 Long term (current) use of anticoagulants (principal)
CPT/HCPCS: 36416; 85610

== ENCOUNTER 2023-09-18 16:51 | Inpatient (IN) | payer MEDICARE, OTHER, SELFPAY ==
[2023-09-18] VITALS (8 sets, daily range): BP systolic 140–190; BP diastolic 86–115; PULSE 69–100; RESP 14–24; TEMP 36.2–36.4; O2SAT 87–97; BMI 22.2; BMI 20.3
--- NOTE | 2023-09-18 17:29 | EX.ED.DYSGE1 ---
HPI <PEREZ Medina - Last Filed: 09/18/23 19:22> History of Present Illness Chief Complaint: Shortness of Breath Narrative Narrative: Patient is an 87-year-old female with history of a pacemaker, hypertension, hyperlipidemia who presents to the emergency department for shortness of breath. Patient states that she got up this morning, she does not normally use oxygen, she felt short of breath. When the squad arrived, she was 85%. Patient lives in a assisted living facility at [facility]. Patient denies any specific pain just tightness. Patient denies any headache, fever chills or cough. Patient denies any sick contacts. Patient responded well to nasal cannula oxygen. [facility] <PEREZ Medina - Last Filed: 09/18/23 19:22> [facility] Medical History (Updated 09/18/23 @ 20:[address] Libertad Hall, DO) Acute GI bleeding Anticoagulated on Coumadin Atrial fibrillation with RVR Back pain Cerebrovascular disease Chronic antral gastritis CVA (cerebral vascular accident) Elevated blood pressure reading in office with white coat syndrome, without diagnosis of hypertension Elevated troponin (06/16/20) Elevated troponin Elevation of cardiac enzymes Essential (primary) hypertension Gastric polyp History of breast cancer History of non-ST elevation myocardial infarction (NSTEMI) (05/23/21) History of TIA (transient ischemic attack) (06/16/20) History of vasculitis Hypercoagulable state Hyperlipidemia Hypokalemia Hypothyroidism Lower gastrointestinal bleeding Multiple premature ventricular complexes Non-ischemic cardiomyopathy Orthostatic hypotension Osteoarthritis of spine Paroxysmal atrial fibrillation Patent foramen ovale Pre-syncope Right bundle branch block (RBBB) Sick sinus syndrome Stenosis of left carotid artery Syncope Vasculitis Home Medications atorvastatin 20 mg tablet 20 mg PO QHS cholesterol 08/20/13 [History Last Taken 03/29/21] cyanocobalamin (vitamin B-12) 1,000 mcg tablet 1,000 mcg PO DAILY supplement 11/02/18 [History Last Taken 03/30/21] potassium chloride 10 mEq tablet,extended release 10 meq PO DAILY potassium 11/02/18 [History Last Taken 03/30/21] levothyroxine 75 mcg tablet 75 mcg PO DAILY thyroid 04/08/19 [History Last Taken 03/30/21] loratadine 10 mg tablet 10 mg PO DAILY allergies 06/19/21 [History Last Taken Unknown] carvedilol 12.5 mg tablet 12.5 mg PO BID #180 tabs 10/18/21 [Rx Last Taken Unknown] levothyroxine 37.5 mcg capsule 37.5 mcg PO DAILY 09/18/23 [History Last Taken Unknown] warfarin 3 mg tablet 3 mg PO DAILY 09/18/23 [History Last Taken Unknown] Allergy/AdvReac Type Severity Reaction Status Date / Time omeprazole Allergy Severe Swelling Verified 09/18/23 16:55 lansoprazole Allergy Intermediate edema Verified 09/18/23 16:55 levofloxacin [From Levaquin] Allergy Angioedema Verified 09/18/23 16:55 lisinopril Allergy Swelling Verified 03/05/22 16:31 Penicillins Allergy Itching Verified 09/18/23 16:55 Sulfa (Sulfonamide Allergy Angioedema Verified 09/18/23 16:55 Antibiotics) amlodipine AdvReac Severe severe Verified 09/18/23 16:55 hypotension Family History Father Myocardial infarction Sister CAD (coronary artery disease) Stents Brother CVA (cerebral vascular accident) Surgical History (Updated 03/06/22 @ 16:30 by Dee Ch) History of colonoscopy (08/2018) History of esophagogastroduodenoscopy (EGD) (08/2018) History of left heart catheterization (05/23/21) History of open reduction and internal fixation (ORIF) procedure History of permanent cardiac 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) History of right mastectomy Social History household members: family Smoking Status: Former smoker Tobacco: How many years used: 20 how long ago did patient quit smokin years ago second hand exposure: No alcohol intake: current alcohol intake frequency: holidays/special occasions only substance use type: does not use caffeine: No ROS <PEREZ Medina - Last Filed: 09/18/23 19:22> ROS ED ROS Narrative Constitutional: Negative for fever, chills, weight loss, weakness Eyes: Negative for vision loss, vision change, double vision ENT: Negative for any sore throat, ear pain, congestion Cardiovascular: Negative for any chest pain, tightness, palpitations Respiratory: Negative for any cough, sputum production, hemoptysis, orthopnea. Positive for dyspnea, dyspnea on exertion Gastrointestinal: Negative for any abdominal pain, nausea, vomiting, diarrhea, constipation, blood in stool, blood in vomit : Negative for any urinary frequency, dysuria, retention, blood in urine Muscle skeletal: Negative for any myalgias, arthralgias, neck pain, back pain Neurological: Negative for any headache, syncope, paresthesias, dizziness Skin: Negative for any rashes, lumps, itching, abrasions, lacerations Psychiatric: Negative for any depression, anxiety, stress, suicidal ideation, homicidal ideation Hematologic: Negative for any easy bruising, excessive bruising, easy bleeding Allergies: Negative for any eczema, hives, rash EXAM <PEREZ Medina - Last Filed: 09/18/23 19:22> Physical Exam Narrative Exam Narrative: Vital signs reviewed. Patient on 4 L nasal cannula is 97%. Does show some tachypnea as well as some conversational dyspnea. HEET: Head normocephalic atraumatic, TMs clear bilaterally. Posterior pharynx is clear, moist mucous membranes. Nares clear bilaterally. Neck: Supple with no lymphadenopathy or tenderness. No signs of meningismus. Cardiac: Regular rate and rhythm no murmurs gallops or rubs, equal peripheral pulses bilaterally. Respiratory: Diminished lung sounds to bilateral bases, crackles in the left mid lobe.. No chest tenderness. Abdomen: Soft, nontender, nondistended. No abdominal bruit or pulsatile masses. No hepatosplenomegaly Extremities: Patient does have some lower leg edema, this appears chronic. No significant pitting., no signs of gross trauma or deformity. Active full range of motion of all extremities. Neuro: Cranial nerves II through XII intact, no focal neurological deficits. Skin: Clean dry and intact with no rash, purpura, petechiae, vesicles or pustules. Backs/flank: No CVA tenderness, no midline spinal tenderness, no deformity. Psych: Normal mood and affect. No SI, HI or acute psychosis. Const Vital Signs: 09/18/23 16:56 09/18/23 17:08 09/18/23 17:08 Temperature 97.5 F L 97.5 F L Temperature Source Oral Oral Pulse Rate 80 100 Respiratory Rate 18 24 H Respiratory Effort Short of Breath Respiratory Pattern Blood Pressure 190/104 H 154/115 H Blood Pressure Mean 132 128 Pulse Ox 87 97 Oxygen Delivery Method Room Air Nasal Cannula Nasal Cannula Oxygen Flow Rate (L/min) 4 4 09/18/23 17:33 09/18/23 18:56 Temperature Temperature Source Pulse Rate 76 Respiratory Rate 24 H Respiratory Effort Respiratory Pattern Tachypnea Blood Pressure Blood Pressure Mean Pulse Ox 96 Oxygen Delivery Method Nasal Cannula Oxygen Flow Rate (L/min) 4 Positive well nourished and well developed General Appearance ED: well developed <Dr. Colin Lawton MD - Last Filed: 09/18/23 20:53> Physical Exam Const Vital Signs: 09/18/23 16:56 09/18/23 17:08 09/18/23 17:08 Temperature 97.5 F L 97.5 F L Temperature Source Oral Oral Pulse Rate 80 100 Respiratory Rate 18 24 H Respiratory Effort Short of Breath Respiratory Pattern Blood Pressure 190/104 H 154/115 H Blood Pressure Mean 132 128 Pulse Ox 87 97 Oxygen Delivery Method Room Air Nasal Cannula Nasal Cannula Oxygen Flow Rate (L/min) 4 4 09/18/23 17:33 09/18/23 18:56 Temperature Temperature Source Pulse Rate 76 Respiratory Rate 24 H Respiratory Effort Respiratory Pattern Tachypnea Blood Pressure Blood Pressure Mean Pulse Ox 96 Oxygen Delivery Method Nasal Cannula Oxygen Flow Rate (L/min) 4 MDM <PEREZ Medina - Last Filed: 09/18/23 19:22> [facility] Lab Data Labs: Laboratory Results - last 24 hr 09/18/23 17:35 WBC 5.9 RBC 4.44 Hgb 12.9 Hct 41.9 MCV 94.4 MCH 29.1 MCHC 30.8 L RDW Std Deviation 45.7 H RDW Coeff of Duc 13.2 Plt Count 214 MPV 9.3 Immature Gran % (Auto) 0.200 Neut % (Auto) 56.3 Lymph % (Auto) 31.9 Posey % (Auto) 8.1 Eos % (Auto) 3.2 Baso % (Auto) 0.3 Absolute Neuts (auto) 3.3 Absolute Lymphs (auto) 1.88 Nucleated RBC % 0 PT 19.9 H INR 1.7 D-Dimer Quant (PE/DVT) 0.43 Sodium 142 Potassium 4.5 Chloride 112 H Carbon Dioxide 34.0 H Anion Gap -4 L BUN 15 Creatinine 0.64 Estim Creat Clear Calc 44.58 Est GFR (MDRD) Af Amer 113 Est GFR (MDRD) Non-Af 93 BUN/Creatinine Ratio 23.4 H Glucose 123 H Calcium 9.2 Troponin I High Sens 203 H* B-Natriuretic Peptide 256.8 H Radiography Diagnostic Testing: Clinical Impression(s) from Imaging Studies Chest X-Ray 09/18/23 17:53 IMPRESSION: Hyperaeration. Electronically Signed: Elliott Segundo DO at 18:06 EST Reading Location ID and State: [facility] [place] Tel [phone], Service support , EKG Normal sinus rhythm, right bundle branch block: Attestation: I personally reviewed and interpreted this EKG as follows: Interpretation: Sinus Rhythm Comments: Normal sinus rhythm, rate of 81 bpm, HI 176 ms, QRS duration 128 ms, no acute ST elevation, no acute infarct noted Treatment and Re-Evaluation :: Patient is in mild distress secondary to feeling of shortness of breath. Patient is tolerating 4 L of nasal cannula well. Patient does show some tachypnea. She does have some conversational dyspnea. Differential diagnosis includes ACS, PA, pulmonary embolus, pneumonia, viral symptoms. Patient received a full cardiac workup. Patient's chest x-ray inserted by the ER physician shows high variation, no acute infiltrate. Patient's laboratory values showed a normal CBC, patient's PT/INR shows a pro time of 19.9 with a INR 1.7, this is slightly subtherapeutic. Patient's D-dimer was negative. Patient's chemistries were unremarkable, glucose is 123, troponin was elevated at 203, BNP was 256.8. Patient was given breathing treatments for her shortness of breath. Patient was negative for any COVID-19, influenza, RSV. Secondary to this elevated troponin, the patient's shortness of breath as well as hypoxia the patient will need to be admitted to the hospital. The patient needs serial troponins to see if they are elevating, the patient could have elevated troponin secondary to hypoxia and work of breathing. Patient will be admitted to the hospital. I will speak to the hospitalist. Patient patient stable for admission. <Dr. Colin Lawton MD - Last Filed: 09/18/23 20:53> [facility] Narrative Medical decision making narrative: I have personally performed a face to face assessment of the patient and have reviewed the DOMO Note. I performed a substantive portion of the visit including all aspects of the following. My irvin findings include: History: Patient states she is really started to get dyspneic this morning. When she arrived here she had very low saturations. She denies any pulmonary history. Never been a smoker. Exam: Patient has coarse breath sounds questionable rales but definitely expiratory wheezing. Medical Decision Making: She improved with a breathing treatment here. But with her elevated troponin and significant symptoms I think she does need to come in the hospital. Lab Data Attestation: I reviewed the patient's lab results. Labs: Laboratory Results - last 24 hr 09/18/23 17:35 WBC 5.9 RBC 4.44 Hgb 12.9 Hct 41.9 MCV 94.4 MCH 29.1 MCHC 30.8 L RDW Std Deviation 45.7 H RDW Coeff of Duc 13.2 Plt Count 214 MPV 9.3 Immature Gran % (Auto) 0.200 Neut % (Auto) 56.3 Lymph % (Auto) 31.9 Posey % (Auto) 8.1 Eos % (Auto) 3.2 Baso % (Auto) 0.3 Absolute Neuts (auto) 3.3 Absolute Lymphs (auto) 1.88 Nucleated RBC % 0 PT 19.9 H INR 1.7 D-Dimer Quant (PE/DVT) 0.43 Sodium 142 Potassium 4.5 Chloride 112 H Carbon Dioxide 34.0 H Anion Gap -4 L BUN 15 Creatinine 0.64 Estim Creat Clear Calc 44.58 Est GFR (MDRD) Af Amer 113 Est GFR (MDRD) Non-Af 93 BUN/Creatinine Ratio 23.4 H Glucose 123 H Calcium 9.2 Troponin I High Sens 203 H* B-Natriuretic Peptide 256.8 H Radiography Diagnostic Testing: Clinical Impression(s) from Imaging Studies Chest X-Ray 09/18/23 17:53 IMPRESSION: Hyperaeration. Electronically Signed: Elliott Segundo DO at 18:06 EST , Discharge Plan Dx/Rx/DC Orders Clinical Impression: Acute dyspnea, Elevated troponin, Hypoxia Disposition Disposition: Acute Care Hospital [facility] Discharge Date/Time: 09/18/23 20:48
[2023-09-18 17:40] LABS: Absolute Lymphocyte Count 1.88 X10^3/uL (0.83-4.51); Absolute Neutrophil Count 3.3 X10^3/uL (2.0-7.7); Basophil# 0.02 X10^3/uL; Basophil% 0.3 % (0-1); Eosinophil# 0.19 X10^3/uL; Eosinophils% 3.2 % (0-5); Hematocrit 41.9 % (37-47); Hemoglobin 12.9 g/dL (12.0-15.0); Lymphocyte # 1.88 X10^3/ul (0.83-4.51); Lymphocyte % 31.9 % (19-41); Mean Corp Hgb Conc 30.8 g/dL (32-36); Mean Corpuscular Hgb 29.1 pg (27.0-32.0); Mean Corpuscular Volume 94.4 fL (81-99); Mean Platelet Vol. 9.3 fl (6.2-12.0); Monocyte# 0.48 X10^3/uL; Monocyte% 8.1 % (0-10); NRBC Flagged by Analyzer 0 % (0-5); Neutrophil # 3.31 X10^3/uL (2.7-7.7); Neutrophil % 56.3 % (47-70); Platelet Count 214 K/mm3 (150-450); RBC Distribution Width CV 13.2 % (11.6-14.6); RBC Distribution Width SD 45.7 fl (35.1-43.9); Red Blood Count 4.44 M/mm3 (4.2-5.4); White Blood Count 5.9 K/mm3 (4.4-11.0)
[2023-09-18 17:49] LABS: International Normalized Ratio 1.7; Prothrombin Time (Protime)PT. 19.9 SECONDS (11.7-14.9)
--- NOTE | 2023-09-18 17:53 | RAD_ITS ---
INDICATION: chest pain EXAMINATION/TECHNIQUE: X-RAY - XR Chest 1 View COMPARISON: February 15, 2022 FINDINGS: LINES/DEVICES: Stable left-sided pacemaker. LUNGS: Hyperaeration. No consolidation, edema or effusion. No pneumothorax. MEDIASTINUM AND CARDIOVASCULAR STRUCTURES: Cardiac silhouette not enlarged. Calcified aortic arch. Central airways and mediastinal contour are unremarkable. BONES AND SOFT TISSUES: Unremarkable. RAD/Chest 1 View (Portable) IMPRESSION: Hyperaeration. Electronically Signed: Elliott Segundo DO at 18:06 EST ,
[2023-09-18 18:06] LABS: BNP,B-Type NATRIURETIC PEPTIDE 256.8 pg/mL (0-100)
[2023-09-18 18:11] LABS: Anion Gap -4 (5-15); BUN 15 mg/dL (7-18); BUN/Creat Ratio 23.4 RATIO (10-20); Calcium,Total 9.2 mg/dL (8.5-10.1); Chloride 112 mmol/L (98-107); Creatinine, Serum 0.64 mg/dL (0.55-1.02); EST Glomerular Filtration Rate 93 mL/min (>60); Est Glom Filt Rate - Afr Amer 113 mL/min (>60); Estimated Creatinine Clearance 44.58 ml/min; Glucose 123 mg/dL (74-106); Potassium 4.5 mmol/L (3.5-5.1); Sodium Level 142 mmol/L (136-145); Troponin-I HS (w/2H Reflex) 203 pg/mL (3.0-54.0)
[2023-09-18 18:32] LABS: D-Dimer Quantitative (DVT/PE) 0.43 FEU/ug/m (0.27-0.49)
[2023-09-18] MEDS: Ipratropium/Albuterol Sulfate 3 ML AMPUL.NEB INHALATION (18:56)
--- NOTE | 2023-09-18 19:35 | HP.PCM.HOS_ITS ---
HPI - General General Date of Admission: 09/18/23 Date of Service: 09/18/23 Chief Complaint: Shortness of breath HPI Narrative LUCRETIA LEAL, is a 87 F who presented to the emergency department at [facility] from her assisted living facility at [place] complaining of shortness of breath. Patient is extremely poor historian. She was able to tell me she was feeling normally yesterday without any issues and when she woke up this morning she felt fine and went to breakfast. She indicated that about 4:00 she started feeling different and was unable to explain how. Squad was called and when they arrived she was satting 85% on room air. She has a history of tobacco abuse but no delineated history of COPD and also has chronically elevated troponin with a normal EF most recently assessed in 2021. She denies any fever, chills, cough, swelling, pain, nausea, vomiting and states that her bowels and bladder are working normally for her. She has not felt ill or had any been any known sick contacts that she is aware. Vital signs on presentation showed temperature of 97.5, heart rate 80, blood pressure is 190/104 with repeat at 154/115, respiratory rate has been anywhere between 14 and 24 and oxygen saturations on presentation were 87% on room air. She was placed on 4 L nasal cannula and oxygen saturations have been between 96 to 97% since that time. Her CBC is unremarkable having a normal white count and no left shift. She is not anemic. Coags were performed as she is chronically on Coumadin and she was found have an INR of 1.7. Her last INR was checked in early August and at that time she was 2.1. D-dimer was unremarkable. Chemistry panel was overall unremarkable. Troponin was elevated at 203 and her BNP was elevated at 256.8. Chest x-ray shows hyperinflation but no signs of volume overload. EKG was normal sinus rhythm with a right bundle branch block which appears to be chronic, heart rate was 81 with normal intervals and no ST-T wave changes concerning for acute ischemia. In the emergency department she was given a full dose aspirin due to her troponin elevation and given a DuoNeb. [facility] Medical History Acute GI bleeding Anticoagulated on Coumadin Atrial fibrillation with RVR Back pain Cerebrovascular disease Chronic antral gastritis CVA (cerebral vascular accident) Elevated blood pressure reading in office with white coat syndrome, without julissa gnosis of hypertension Elevated troponin (06/16/20) Elevated troponin Elevation of cardiac enzymes Essential (primary) hypertension Gastric polyp History of breast cancer History of non-ST elevation myocardial infarction (NSTEMI) (05/23/21) History of TIA (transient ischemic attack) (06/16/20) History of vasculitis Hypercoagulable state Hyperlipidemia Hypokalemia Hypothyroidism Lower gastrointestinal bleeding Multiple premature ventricular complexes Non-ischemic cardiomyopathy Orthostatic hypotension Osteoarthritis of spine Paroxysmal atrial fibrillation Patent foramen ovale Pre-syncope Right bundle branch block (RBBB) Sick sinus syndrome Stenosis of left carotid artery Syncope Vasculitis Home Medications atorvastatin 20 mg tablet 20 mg PO QHS cholesterol 08/20/13 [History Last Taken 03/29/21] cyanocobalamin (vitamin B-12) 1,000 mcg tablet 1,000 mcg PO DAILY supplement 11/02/18 [History Last Taken 03/30/21] potassium chloride 10 mEq tablet,extended release 10 meq PO DAILY potassium 11/02/18 [History Last Taken 03/30/21] levothyroxine 75 mcg tablet 75 mcg PO DAILY thyroid 04/08/19 [History Last Taken 03/30/21] loratadine 10 mg tablet 10 mg PO DAILY allergies 06/19/21 [History Last Taken Unknown] carvedilol 12.5 mg tablet 12.5 mg PO BID #180 tabs 10/18/21 [Rx Last Taken Unknown] levothyroxine 37.5 mcg capsule 37.5 mcg PO DAILY 09/18/23 [History Last Taken Unknown] warfarin 3 mg tablet 3 mg PO DAILY 09/18/23 [History Last Taken Unknown] Allergy/AdvReac Type Severity Reaction Status Date / Time omeprazole Allergy Severe Swelling Verified 09/18/23 16:55 lansoprazole Allergy Intermediate edema Verified 09/18/23 16:55 levofloxacin [From Levaquin] Allergy Angioedema Verified 09/18/23 16:55 lisinopril Allergy Swelling Verified 03/05/22 16:31 Penicillins Allergy Itching Verified 09/18/23 16:55 Sulfa (Sulfonamide Allergy Angioedema Verified 09/18/23 16:55 Antibiotics) amlodipine AdvReac Severe severe Verified 09/18/23 16:55 hypotension Family History Father Myocardial infarction Sister CAD (coronary artery disease) Stents Brother CVA (cerebral vascular accident) Surgical History History of colonoscopy (08/2018) History of esophagogastroduodenoscopy (EGD) (08/2018) History of left heart catheterization (05/23/21) History of open reduction and internal fixation (ORIF) procedure History of permanent cardiac 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) History of right mastectomy Social History (Updated 09/18/23 @ 21:[address] Libertad Hall DO) household members: other details: Twin sister housing: assisted living facility Smoking Status: Former smoker Tobacco: How many years used: 20 how long ago did patient quit smokin years ago second hand exposure: No alcohol intake: current alcohol intake frequency: holidays/special occasions only substance use type: does not use caffeine: No ROS Constitutional Constitutional: Denies anorexia, change in weight, chills, fatigue, fever(s), malaise, night sweats, weakness or other Eyes Eyes: Denies blurry vision, change in eye color, change in vision, discharge from eye(s), double vision, erythema, eye pain, loss of vision or other ENT HEENT: Denies abnormal hearing, dysphagia, ear pain, epistaxis, headache(s), hearing loss, nasal congestion, nasal discharge, post nasal drip, sinus pressure, sore throat or other Cardiovascular Cardiovascular: Reports dyspnea on exertion; Denies chest pain, claudication, edema, lightheadedness, orthopnea, palpitations, paroxysmal nocturnal dyspnea, rapid heart rate, syncope or other Respiratory/Chest Respiratory/Chest: Reports dyspnea, shortness of breath at rest and shortness of breath with exertion; Denies cough, excessive phlegm production, hemoptysis, productive cough, wheezing or other Gastrointestinal Gastrointestinal: Denies abdominal pain, coffee ground emesis, constipation, diarrhea, dyspepsia, hematemesis, hematochezia, loose stools, melena, nausea, vomiting or other Genitourinary Genitourinary: Reports urinary incontinence; Denies burning urination, difficulty urinating, dysuria, hematuria, nocturia, urinary frequency, urinary hesitancy, urinary urgency or other Musculoskeletal Musculoskeletal: Denies arthralgias, back pain, joint pain, joint stiffness, joint swelling, myalgias, neck pain or other Neurologic Neurologic: Denies abnormal gait, abnormal speech, confusion, disequilibrium, d izziness, focal weakness, headache(s), numbness, paresthesias, seizure-like activity, seizures, syncope, tingling, tremor(s) or other Psychiatric Psychiatric: Denies anxiety, depression, homicidal ideation, suicidal ideation or other Endocrine Endocrinology: Denies change in body appearance, cold intolerance, excessive sweating, heat intolerance, polydipsia, polyuria or other Hematologic/Lymphatic Hematologic/Lymphatic: Denies anemia, easy bleeding, easy bruising, lymphadenopathy or other Allergic/Immunologic Allergic/Immunologic: Denies rhinitis, hives, eczemia, asthma or other Vital Signs Vital Signs Vital Signs: 09/18/23 16:56 09/18/23 17:08 09/18/23 17:08 Temperature 97.5 F L 97.5 F L Temperature Source Oral Oral Pulse Rate 80 100 Respiratory Rate 18 24 H Respiratory Effort Short of Breath Respiratory Pattern Blood Pressure 190/104 H 154/115 H Blood Pressure Mean 132 128 Pulse Ox 87 97 Oxygen Delivery Method Room Air Nasal Cannula Nasal Cannula Oxygen Flow Rate (L/min) 4 4 09/18/23 17:33 09/18/23 18:56 Temperature Temperature Source Pulse Rate 76 Respiratory Rate 24 H Respiratory Effort Respiratory Pattern Tachypnea Blood Pressure Blood Pressure Mean Pulse Ox 96 Oxygen Delivery Method Nasal Cannula Oxygen Flow Rate (L/min) 4 Weight Weight: 60.6 kg Body Mass Index (BMI) 22.2 Physical Exam Const alert Constitutional Narrative: Elderly, white female, sitting up in bed, appears comfortable and nontoxic, comfortable breathing on supplemental oxygen of 4 L, patient is alert and oriented to self and place but time is somewhat difficult for her General Appearance: cooperative HEENT normocephalic, head/scalp atraumatic and moist oral mucous membranes HEENT Narrative: Moderate to severe hearing loss, dentition is fair for age, Mallampati is 2, no thrush Eyes PERRL, EOMs intact bilaterally and conjunctivae normal Eyes Narrative: No scleral icterus Neck no lymphadenopathy and supple Neck Narrative: Trachea midline, no thyroid enlargement Resp normal respiratory effort, no retractions, no use of accessory muscles and No clear to auscultation bilaterally Resp Narrative: some right lower lobe and expiratory wheeze that improves with deep breathing and otherwise diminished diffusely Auscultation: wheezes; Negative for rales or rhonchi Cardio regular rate, regular rhythm, S1 normal heart sound, S2 normal heart sound, no murmurs, no rub, no gallops and no clicks GI normal to inspection, nondistended, normoactive bowel sounds, soft to palpation and non-tender Extremity no clubbing, cyanosis or edema Extremity Narrative: Tenderness with palpation to distal lower extremities Neuro CN's II-XII intact bilaterally, moves all extremities and no focal motor deficits Sensorium / Orientation: awake, alert, oriented to person and oriented to place Speech: speech normal Psych affect normal Psych Narrative: Eye contact is good, patient interacts appropriately Results Lab / Micro Data Attestation: I reviewed the patient's lab results. 09/18/23 17:35 09/18/23 17:35 Labs: Laboratory Results - last 24 hr 09/18/23 17:35: WBC 5.9, RBC 4.44, Hgb 12.9, Hct 41.9, MCV 94.4, MCH 29.1, MCHC 30.8 L, RDW Std Deviation 45.7 H, RDW Coeff of Duc 13.2, Plt Count 214, MPV 9.3, Immature Gran % (Auto) 0.200, Neut % (Auto) 56.3, Lymph % (Auto) 31.9, [place] % (Auto) 8.1, Eos % (Auto) 3.2, Baso % (Auto) 0.3, Absolute Neuts (auto) 3.3, Absolute Lymphs (auto) 1.88, Nucleated RBC % 0, PT 19.9 H, INR 1.7, D-Dimer Quant (PE/DVT) 0.43, Sodium 142, Potassium 4.5, Chloride 112 H, Carbon Dioxide 34.0 H, Anion Gap -4 L, BUN 15, Creatinine 0.64, Estim Creat Clear Calc 44.58, Est GFR (MDRD) Af Amer 113, Est GFR (MDRD) Non-Af 93, BUN/Creatinine Ratio 23.4 H, Glucose 123 H, Calcium 9.2, Troponin I High Sens 203 H*, B-Natriuretic Peptide 256.8 H Micro: Microbiology 09/18/23 17:30 Mucosa - Nose SARS-CoV-2, Influenza & RSV (PCR) - Final Imaging Radiology Impression Chest X-Ray 09/18/23 17:53 IMPRESSION: Hyperaeration. Electronically Signed: Elliott Segundo DO at 18:06 EST Reading Location ID and State: [facility] / [place] Tel [phone], Service support , Assessment & Plan Assessment/Plan (1) Hypoxia: (2) Elevated troponin: (3) Acute dyspnea: (4) Elevated brain natriuretic peptide (BNP) level: (5) Elevated blood pressure reading: PLAN: Plan Acute hypoxia -Etiology is somewhat unclear however I do suspect this may be more related to her blood pressure and some acutely decompensated heart failure versus COPD exacerbation and highly doubt infectious etiology -Patient does seem to have some cognitive impairment and obtaining a meaningful history was quite difficult -Patient states she is a non-smoker however it is documented in her chart that she was a former smoker and she does seem to have some memory issues -COVID/flu/RSV is negative -Check respiratory viral panel -Last echocardiogram from 02/16/2022 shows an EF of 65%, moderate mitral valve calcification with trivial mitral valve insufficiency, right ventricular systolic pressure of 34 mmHg and indeterminate diastolic dysfunction -Will check repeat echocardiogram -Chest x-ray is unremarkable and no signs of edema -Her troponin is up slightly however this is not atypical for her when compared to previous data and the significance of this is unclear especially given the f act she is not having any chest pain -Her BNP is markedly elevated from previous at 256.8 -Will dose with Lasix 40 mg IV twice daily -Will also schedule DuoNebs and use as needed albuterol -Currently requiring supplemental oxygen at 2 L for desaturations at 87% on presentation with sats stable -Wean oxygen as able Elevated troponin -Patient has chronically elevated troponin levels -Repeat has trended down some -Check echocardiogram -Patient has had 2 cardiac catheterizations due to troponin elevation both were clean -2018 and again in May 2021 -Patient has been evaluated by cardiology previously and has not established as an outpatient but her last appointment was in 2021 -Would recommend outpatient follow-up after discharge History of TIA/stroke -Continue Coumadin with adjustments as noted below -Continue risk factor modification PAF -INR is subtherapeutic at 1.7 -Patient is currently taking Coumadin Friday, Friday, , Friday, and Friday -With subtherapeutic INR we will add a Friday dose at 3 mg and monitor -Continue home beta-alissa -Trend INR Hypertension with elevated blood pressure -Blood pressure was elevated however this was on admission and may be related to being in the emergency department -Will continue to monitor but may need up titration of medication if she is consistently elevated -Continue home carvedilol 12.5 mg twice daily -As needed hydralazine for systolic blood pressure greater than 160 -Continue to monitor Hyperlipidemia -Continue home statin Hypothyroidism -Continue home levothyroxine -Check TSH History of GERD -Currently on no medication -Monitor History of sick sinus syndrome -Pacemaker in place History of breast cancer -No current issues -Patient with history of right mastectomy Suspected dementia -During my evaluation patient seem to have significant memory difficulty however she was alert and oriented DVT prophylaxis -INR currently subtherapeutic at 1.7 -Will add Lovenox 40 mg subcu until INR is therapeutic between 2 and 3 CODE STATUS -Full code Charges/Coding Visit Charges Inpatient E&M: 99713 Init Hosp L2
[2023-09-18 19:37] LABS: Reflex Troponin-HS? (from REC) Y
--- OUTSIDE RECORDS SUMMARY | 2023-09-18 19:57 | XMS RPT_ITS | CCD ---
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 Name Role Phone Aline Morales Unavailable Unavailable Earl Oseguera MD Unavailable ROGELIO, SHAN E Unavailable Unavailable ROGELIO, SHAN E Unavailable Unavailable ROGELIO, SHAN Unavailable Unavailable ROGELIO, SHAN Unavailable Unavailable ELMO TOVAR Unavailable Unavailable ROGELIO, SHAN Unavailable Unavailable ROGELIO, SHAN Unavailable Unavailable ELMO TOVAR Unavailable Unavailable SELF, SELF Referring Unavailable Elmo Tovar DO Primary Care Provider Shawanda, Sikes S Unavailable Matthew Ceballos MD Unavailable Elmo Tovar DO Primary Care Provider Shawanda, Sikes S Unavailable Matthew Ceballos MD Unavailable ELMO TOVAR Referring Unavailable ELMO TOVAR Primary Care Unavailable ELMO TOVAR Primary Care Unavailable PROVIDER, UNKNOWN Admitting Unavailable TANJA JAVIER Attending Unavaila [employer] Unavailable Elmo Tovar DO Primary Care Provider Shawanda, Abhijeet S Unavailable Matthew Ceballos MD Unavailable ELMO TOVAR Primary Care Unavailable LESLIE LING Attending Unavailable ELMO TOVAR Primary Care Unavailable PAWEL FOSTER Attending Unavailable PAWEL FOSTER Referring Unavailable ELMO TOVAR Primary Care Unavailable ELMO TOVAR Referring Unavailable ISHA, LESLIE Referring Unavailable ELMO TOVAR Primary Care Unavailable ELMO TOVAR Primary Care Unavailable ISHA, LESLIE Referring Unavailable ELMO TOVAR Primary Care Unavailable ISHA, LESLIE Referring Unavailable Allergies Allergy Classification Reported Allergen(s) Allergy Type Date of Onset Reaction(s) Facility (3 sources) levoFLOXacin drug allergy 05-15-20 [facility] Work Phone: (3 sources) penicillin g drug allergy 05-15-20 [facility] Work Phone: (3 sources) sulfamethoxazole drug allergy 05-15-20 [facility] Work Phone: (20 sources) Adhesive Tape; Translations: [ADHESIVE TAPE (ROSINS)] Propensity to adverse reactions (disorder) 10-07-19 13 Other: See Comments [facility] Repository (20 sources) levoFLOXacin; Translations: [LEVOFLOXACIN] Drug Allergy 08-30-19 13 Other: See Comments [facility] Repository (20 sources) lisinopril; Translations: [LISINOPRIL] Drug Allergy 12-25-19 13 Other: See Comments [facility] Rep[facility] (20 sources) Penicillins; Translations: [PENICILLINS] Propensity to adverse reactions to drug (disorder) 08-30-19 13 Other: See Comments [facility] Rep[facility] (20 sources) Sulfonamides (Antibiotic); Translations: [SULFA (SULFONAMIDE ANTIBIOTICS)] Propensity to adverse reactions to drug (disorder) 08-30-19 13 Other: See Comments [facility] Repository (20 sources) lansoprazole; Translations: [LANSOPRAZOLE] Drug Allergy 03-26-20 19 [facility] Medications Current Medications Medication Drug Class(es) Dates Sig (Normalized) Sig (Original) iv contrast (will be provided with radiology test) (4 sources) Start: 03-06-2022 End: 03-07-2022 inject 1 dose intravenously once iv contrast (will be provided with radiology test) Indications: Generalized weakness , Acute confusion , Transient cerebral ischemia, unspecified type , Expressive aphasia , Weakness of right hand CTA Head/Neck WO/W No IV access, insert saline lock prior to the sedation, infusion, injection for imaging exam. Discontinue saline lock post exam. If Pt. has a central line or IVAD, may access for administration according to line specific nursing protocol. Once exam is complete flush line and de-access according to line specific nursing protocol in the CT contrast administration guidelines link. 1 Each 0 03/06/2022 03/07/2022 Active Completed/Discontinued Medications Medication Drug Class(es) Dates Sig (Normalized) Sig (Original) amLODIPine 2.5 mg oral tablet (3 sources) Dihydropyridine [employer] Candace Start: 05-15-2017 NORVASC 2.5 MG TABS AMLODIPINE BESYLATE [id number] Earl Oseguera MD aspirin (3 sources) Nonsteroidal Anti-inflammatory Drug Start: 05-15-2017 ADULT ASPIRIN EC LOW STRENGTH 81 MG TBEC ASPIRIN [id number] Earl Oseguera MD Problems Active Problems Problem Classification Problem Date Documented Date Episodic/Chronic Acute cerebrovascular disease (16 sources) Cerebrovascular accident; Translations: [Ischemic stroke] Onset: 05-15-2017 05-15-2017 Chronic Acute myocardial infarction (3 sources) Myocardial infarction; Translations: [ST elevation (STEMI) myocardial infarction of unspecified site] Onset: 05-15-2017 05-15-2017 Chronic Cancer of breast (3 sources) Malignant tumor of breast ; Translations: [Malignant neoplasm of unspecified site of unspecified female breast] Onset: 05-15-2017 05-15-2017 Chronic Cardiac dysrhythmias (20 sources) Cardiac arrhythmia; Translations: [Cardiac arrhythmia, unspecified] Onset: 09-09-2016 09-09-2016 Chronic Conduction disorders (20 sources) Cardiac pacemaker in situ; 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] Onset: 08-30-2012 05-15-2017 Chronic Coronary atherosclerosis and other heart disease (20 sources) Ischemic cardiomyopathy; Translations: [History of myocardial infarction] Onset: 08-21-2013 Chronic Deficiency and other anemia (20 sources) Iron deficiency anemia due to blood loss; Translations: [Iron deficiency anemia secondary to blood loss (chronic)] Onset: 07-16-2017 07-16-2017 Chronic Disorders of lipid metabolism (20 sources) Dyslipidemia; Translations: [Hyperlipidemia, unspecified] Onset: 08-30-2012 Chronic Essential hypertension (20 sources) Hypertensive disorder; Translations: [Essential (primary) hypertension] Onset: 08-30-2012 05-15-2017 Chronic Gastritis and duodenitis (20 sources) Chronic antral gastritis; Translations: [Unspecified chronic gastritis without bleeding] Onset: 07-16-2017 07-16-2017 Chronic Mycoses (1 source) Onychomycosis; Translations: [Tinea unguium] Episodic Other aftercare (1 source) Long-term current use of anticoagulant; Translations: [rat exterminator (current) use of anticoagulants] Episodic Other circulatory disease (20 sources) Vasculitis; Translations: [Arteritis, unspecified] Onset: 01-08-2017 01-08-2017 Chronic Other connective tissue disease (1 source) Pain of toe of left foot; Translations: [Pain in left toe(s)] Episodic Other connective tissue disease (1 source) Pain of toe of right foot; Translations: [Pain in right toe(s)] Episodic Other connective tissue disease (4 sources) Weakness of right hand; Translations: [Other symptoms and signs involving the musculoskeletal system] Episodic Other connective tissue disease (1 source) Weakness of right arm; Translations: [Other symptoms and signs involving the musculoskeletal system] Episodic Other nervous system disorders (2 sources) Expressive dysphasia; Translations: [Aphasia] Chronic Other nervous system disorders (1 source) Aphasia; Translations: [Expressive aphasia] Onset: 03-06-2022 Chronic Other nutritional; endocrine; and metabolic disorders (20 sources) Hypoalbuminemia; Translations: [Other disorders of plasma-protein metabolism, not elsewhere classified] Onset: 01-31-2021 01-31-2021 Chronic Other upper respiratory infections (1 source) Posterior rhinorrhea; Translations: [Postnasal drip] Episodic Pneumonia (except that caused by tuberculosis or sexually transmitted disease) (1 source) Bacterial pneumonia; Translations: [Unspecified bacterial pneumonia] Episodic Residual codes; unclassified (3 sources) Acute confusion; Translations: [Disorientation, unspecified] Episodic Residual codes; unclassified (1 source) Confusional state; Translations: [Disorientation, unspecified] Episodic Rheumatoid arthritis and related disease (20 sources) Inflammatory polyarthropathy; Translations: [Inflammatory polyarthropathy] Onset: 03-23-2019 03-23-2019 Chronic Spondylosis; intervertebral disc disorders; other back problems (20 sources) Disorder of joint of spine; Translations: [Other spondylosis with radiculopathy, lumbar region] Onset: 01-24-2016 01-24-2016 Chronic Thyroid disorders (20 sources) Hypothyroidism; Translations: [Hypothyroidism, unspecified] Onset: 08-31-2012 02-23-2019 Chronic Transient cerebral ischemia (5 sources) Cerebral ischemia; Translations: [Transient cerebral ischemic attack, unspecified] Onset: 03-06-2022 Chronic Unclassified (1 source) Unknown / UNK(Unknown) Onset: 11-17-2017 Past or Other Problems Problem Classification Problem Date Documented Date Episodic/Chronic Cancer of breast (20 sources) History of malignant neoplasm of breast; Translations: [Personal history of malignant neoplasm of breast] Onset: 09-01-2012 08-13-2021 Episodic Conditions associated with dizziness or vertigo (20 sources) Dizziness; Translations: [Dizziness and giddiness] Onset: 04-27-2018 11-05-2021 Episodic Deficiency and other anemia (20 sources) Anemia; Translations: [Anemia, unspecified] Onset: 05-15-2017 05-15-2017 Episodic Diabetes mellitus without complication (20 sources) Impaired fasting glycemia; Translations: [Impaired fasting glucose] Onset: 11-05-2021 11-05-2021 Episodic Fluid and electrolyte disorders (20 sources) Hypokalemia; Translations: [Hypokalemia] Onset: 07-16-2017 07-16-2017 Episodic Malaise and fatigue (5 sources) Asthenia; Translations: [Weakness] Onset: 03-06-2022 Episodic Nutritional deficiencies (20 sources) Cobalamin deficiency; Translations: [Deficiency of other specified B group vitamins] Onset: 01-31-2021 01-31-2021 Episodic Other aftercare (2 sources) correction (current) use of anticoagulants; Translations: [Chronic anticoagulation] Onset: 03-06-2022 Episodic Other and unspecified benign neoplasm (3 sources) Personal history of colonic polyps; Translations: [Personal history of colonic polyps] Onset: 05-15-2017 05-15-2017 Episodic Other and unspecified benign neoplasm (20 sources) Gastric polyp; Translations: [Polyp of stomach and duodenum] Onset: 07-16-2017 07-16-2017 Episodic Other circulatory disease (1 source) Personal history of transient ischemic attack (TIA), and cerebral infarction without residual deficits; Translations: [History of CVA (cerebrovascular accident)] Onset: 03-07-2022 Episodic Other connective tissue disease (1 source) Other symptoms and signs involving the musculoskeletal system; Translations: [Weakness of right hand] Onset: 03-06-2022 Episodic Other inflammatory condition of skin (20 sources) Vasculitis of the skin; Translations: [Vasculitis limited to the skin, unspecified] Onset: 04-08-2016 04-08-2016 Episodic Other nervous system disorders (20 sources) Abnormal gait; Translations: [Unspecified abnormalities of gait and mobility] Onset: 11-05-2021 11-05-2021 Episodic Other nutritional; endocrine; and metabolic disorders (20 sources) Decrease in appetite; Translations: [Anorexia] Onset: 02-23-2019 02-23-2019 Episodic Other nutritional; endocrine; and metabolic disorders (20 sources) Unintentional weight loss; Translations: [Abnormal weight loss] Onset: 02-23-2019 02-23-2019 Episodic Other screening for suspected conditions (not mental disorders or infectious disease) (20 sources) Cardiovascular stress test abnormal; Translations: [Abnormal result of other cardiovascular function study] Onset: 09-02-2012 Episodic Residual codes; unclassified (1 source) Personal history of other specified conditions; Translations: [History of aphasia] Onset: 03-07-2022 Episodic Residual codes; unclassified (1 source) Disorientation, unspecified; Translations: [Acute confusion] Onset: 03-06-2022 Episodic Syncope (20 sources) Syncope; Translations: [Syncope and collapse] Onset: 08-30-2012 Episodic Thyroid disorders (3 sources) Disorder of thyroid gland; Translations: [Disorder of thyroid, unspecified] Onset: 05-15-2017 05-15-2017 Episodic Results Test Name Value Interpretation Reference Range Facil ity Vital Signs Date Time Vital Sign Value Performing Clinician Facility 03-06-2022 10:18-0400 Body weight 53.58 kg Leslie Ling APRN.CNP Work Phone: [facility] 03-06-2022 10:18-0400 Diastolic blood pressure 70 mm[Hg] Leslie Ling APRN.CNP Work Phone: [facility] 03-06-2022 10:18-0400 Heart rate 98 /min Leslie Ling DOT NET ARCHITECT.COLLATERAL CLERK Work Phone: [facility] 03-06-2022 10:18-0400 SaO2% (BldA) [Mass fraction] 96 % Leslie Ling DOT NET ARCHITECT.COLLATERAL CLERK Work Phone: [facility] 03-06-2022 10:18-0400 Systolic blood pressure 98 mm[Hg] Leslie Ling DOT NET ARCHITECT.COLLATERAL CLERK Work Phone: [facility] 02-05-2022 08:44-0400 Body temperature 97.59 [degF] Elmo Tovar DO Work Phone: [facility] 02-05-2022 08:44-0400 Body weight 58.97 kg Elmo Tovar DO Work Phone: [facility] 02-05-2022 08:44-0400 Diastolic blood pressure 70 mm[Hg] Elmo Tovar DO Work Phone: [facility] 02-05-2022 08:44-0400 Heart rate 64 /min Elmo Tovar DO Work Phone: [facility] 02-05-2022 08:44-0400 Respiratory rate 24 /min Elmo Tovar DO Work Phone: [facility] 02-05-2022 08:44-0400 Systolic blood pressure 124 mm[Hg] Elmo Tovar DO Work Phone: [facility] 05-15-2017 07:43-0400 BMI (Body Mass Index) 25.21 kg/m2 Al[facility] Work Phone: 05-15-2017 07:43-0400 BP Diastolic 71 mm[Hg] Aline [facility] Work Phone: 05-15-2017 07:43-0400 BP Systolic 127 mm[Hg] Aline [facility] Work Phone: 05-15-2017 07:43-0400 Height 170.18 cm Aline [facility] Work Phone: 05-15-2017 07:43-0400 Pulse (Heart Rate) 80 /min [facility] Work Phone: 05-15-2017 07:43-0400 Respiratory Rate 18 /min [facility] Work Phone: 05-15-2017 07:43-0400 [facility]: Encounters Encounter Date Encounter Type Care Provider Facility Start: 02-13-2023 ambulatory Abiola Diaz [facility] [place] Procedures Date Procedure Procedure Detail Performing Clinician Start: 03-06-2022 Ct angiography neck w/contrast/noncontrast Leslie Ling APRN.CNP Work Phone: Plan of Treatment Date Care Activity Detail Author Start: 10-10-2026 Urine microalbumin profile DTAP,TDAP,TD (2 - Td or Tdap) [facility] Start: 03-08-2025 DIABETES SCREEN DIABETES SCREEN [facility] Start: 03-06-2025 DIABETES SCREEN DIABETES SCREEN [facility] Start: 10-11-2024 DIABETES SCREEN DIABETES SCREEN [facility] Start: 04-18-2023 Influenza vaccination INFLUENZA (Season Ended) [facility] Start: 03-08-2023 Hepatitis B surface antibody level LDL CHOLESTEROL [facility] Start: 10-11-2022 Hepatitis B surface antibody level LDL CHOLESTEROL [facility] Start: 08-18-2022 ADVANCE DIRECTIVE DISCUSSION ADVANCE DIRECTIVE DISCUSSION [facility] Start: 08-18-2022 DEPRESSION ASSESSMENT DEPRESSION ASSESSMENT [facility] Start: 04-18-2022 Influenza vaccination INFLUENZA (#1) [facility] Start: 09-30-2021 COVID-19 VACCINE (4 - Booster for Pfizer series) COVID-19 VACCINE (4 - Booster for Pfizer series) [facility] Start: 08-18-2021 ADVANCE DIRECTIVE DISCUSSION ADVANCE DIRECTIVE DISCUSSION [facility] Start: 08-18-2021 DEPRESSION ASSESSMENT DEPRESSION ASSESSMENT [facility] Start: 07-25-2021 COVID-19 VACCINE (4 - Booster for Pfizer series) COVID-19 VACCINE (4 - Booster for Pfizer series) [facility] Start: 05-26-2017 End: 05-26-2017 Appointment Appointment [facility] Work Phone: Start: 05-15-2017 End: 05-15-2017 Colonoscopy flx dx w/collj spec when pfrmd Colonoscopy [facility] Work Phone: Start: 05-15-2017 End: 05-15-2017 Esophagogastroduodenoscopy transoral diagnostic EGD; diagnostic [facility] [email or web address] Work Phone: Start: 05-15-2017 End: 05-15-2017 Appointment Appointment [email or web address] Work Phone: Start: 05-15-2017 End: 05-15-2017 Diagnostic colonoscopy Colonoscopy [facility] [email or web address] Work Phone: Start: 05-15-2017 End: 05-15-2017 Uppr gi endoscopy, diagnosis EGD; diagnostic [facility] [employer] Work Phone: Start: 11-11-1985 SHINGRIX VACCINE (1 of 2) SHINGRIX VACCINE (1 of 2) [facility] Immunizations Immunization Date Immunization Notes Care Provider Angella puga 05-30-2021 COVID-19 vaccine, ag e 12+ yr (PFIZER-BIONTECH - PURPLE TOP) [facility] Work Phone: [facility] 05-07-2021 influenza, high-dose , quadrivalent vaccine (FLUZONE HIGH DOSE QUADRIVALENT) [facility] Work Phone: [facility] Work Phone: 10-06-2020 COVID-19 vaccine, ag e 12+ yr (PFIZER-BIONTECH - PURPLE TOP) [facility]tico[facility]str Work Phone: [facility] Work Phone: 09-15-2020 COVID-19 vaccine, ag e 12+ yr (PFIZER-BIONTECH - PURPLE TOP) [facility] Work Phone: [facility] 05-19-2020 influenza, high-dose , quadrivalent vaccine (FLUZONE HIGH DOSE QUADRIVALENT) [facility] Work Phone: [facility] Work Phone: 05-19-2019 influenza, high dose seasonal, preservative-free [facility] Work Phone: [facility] Work Phone: 05-18-2018 influenza, seasonal, injectable, preservative free [facility] Work Phone: [facility] 05-11-2018 influenza, high dose seasonal, preservative-free [facility] Work Phone: [facility] 04-22-2017 influenza, high dose seasonal, preservative-free [facility] Work Phone: [facility] 10-10-2016 tetanus toxoid, redu cristi diphtheria toxoid, and acellular pertussis vaccine, adsorbed [facility] Work Phone: [facility] 03-24-2016 influenza, high dose seasonal, preservative-free [facility] Work Phone: [facility] 08-07-2015 pneumococcal conjuga te vaccine, 13 valent [facility] Work Phone: [facility] 04-20-2015 influenza, high dose seasonal, preservative-free [facility] Work Phone: [facility] Work Phone: 04-20-2015 influenza, injectabl e, quadrivalent, preservative free [facility] Work Phone: [facility] 04-20-2015 pneumococcal polysaccharide vaccine, 23 valent [facility] Work Phone: [facility] 04-14-2014 influenza, high dose seasonal, preservative-free [facility] Work Phone: [facility] 05-23-2013 influenza virus vacc ine, unspecified formulation [facility] Work Phone: [facility] Work Phone: 04-18-2012 influenza virus vacc ine, whole virus [facility] Work Phone: [facility] 12-06-2010 pneumococcal polysaccharide vaccine, 23 valent [facility] Work Phone: [facility] Work Phone: 08-18-2000 pneumococcal polysaccharide vaccine, 23 valent [facility] Work Phone: [facility] Payers Date Payer Category Payer Private Health Insurance [facility] [id number] 2019 Private Health Insurance AET[employer] A ETNA MEDICARE SUPPLEMENT [id number] 2019-Present [phone] [address] [address] [place] [address] Indemnity [id number] 2019 Private Health Insurance [employer] A ETNA MEDICARE SUPPLEMENT [id number] 2019-Present [phone] [address] [address] [place] [address] Indemnity [id number] 2000 Medicare [id number] 2000 Medicare MEDICARE MEDICAR E A AND B [id number] 2000-Present [phone] [place] [address] Medicare [id number] 2000 Medicare MEDICARE MEDICAR E A AND B [id number] 2000-Present [phone] [place] [address] Medicare [id number] 1935 Unknown [id number] Medicare [id number] Social History Date Type Detail Facility Start: [facility]23[facility] End: 08-18-1992 History of tobacco use Current smoker [facility] End: 08-18-1992 History of tobacco use Cigarette Smoker [facility] Start: 09-23-2012 Tobacco use and exposure Smokeless tobacco non-user [facility] Start: 11-05-2021 End: 03-07-2022 Alcohol intake Current drinker of alcohol (finding) [facility] Start: 08-30-2012 History SDOH Alcohol Comment once every 6 months [facility] Start: 1935 Sex Assigned At Female [facility] Start: 11-02-2021 End: 03-07-2022 Exposure to SARS-CoV-2 (event) Not sure [facility] Work Phone: Start: 03-08-2022 History SDOH Financial 4 [facility] Start: 03-08-2022 History SDOH Food Worry 1 [facility] Start: 03-08-2022 History SDOH Transpo rt Med 2 [facility] Medical Equipment Procedure Code Equipment Code Equipment Origin al Text Equipment Identifier Dates Icd-04/30/2013 [id number] Start: 04-30-2013 Clinical Notes 05-19-2019 to 02-13-2023 Abiola Lopez MA - 02/13/2023 10:42 AM Sonya Rosenberg MA - 01/22/2023 1:06 PM EDTTelephone Encounter - Mary Fairbanks LPN - 11/05/2022 9:02 AM EDTPatient Instructions Note Date & Type Note Facility 02-13-2023 Note Patient Outreach (ROGELIO TNAV) GRACIE AVILA ([id number]) 1935 F Date Time Provider Department 02/13/23 ABIOLA LOPEZ During your visit today, we recorded the following information about you: Abiola Lopez MA 02/13/2023 3:45 PM Signed POPULATION HEALTH NAVIGATION OUTREACH Action/FYI no answer mychart message sent ANNUAL MEDICARE WELLNESS EXAM ADVANCE DIRECTIVE DISCUSSION Patient Identified by Name and : NO Outreach Outcome/Action Unable to reach patient: Phone number not valid / voicemail full LLUSTREhart message sent Did you use a PCP flex slot to schedule this appointment? N/A Reason for Outreach Care Gap or Scheduling/Wellness visits Payer: Payor: MEDICARE / Plan: MEDICARE A AND B / Product Type: Medicare / Care Gap Reviewed:: Annual Wellness visit Reminder: Reminder note to check Health Maintenance for items below Health Maintenance items due: SHINGRIX VACCINE(1 of 2) Never done COVID-19 VACCINE(4 - Booster for Pfizer series) due on 07/25/2021 ADVANCE DIRECTIVE DISCUSSION Never done DEPRESSION ASSESSMENT Never done LDL CHOLESTEROL due on 03/08/2023 Navigation Signature: Abiola Lopez MA February 13, 2023 10:42 AM Allergies As of Date: 02/13/2023 Noted Allergy Reaction ADHESIVE TAPE (ROSINS) 10/07/2012 14 - Other: See Comments LEVAQUIN (LEVOFLOXACIN) 08/30/2012 14 - Other: See Comments Comments: Tongue swelling, difficulty swallowing LISINOPRIL 12/24/2012 14 - Other: See Comments Comments: angioedema PENICILLINS 08/30/2012 14 - Other: See Comments Comments: Tongue swelling, difficulty swallowing PREVACID (LANSOPRAZOLE) 03/26/2019 7 - Swelling Comments: patient reports tongue swelling SULFA (SULFONAMIDE ANTIBIOTICS) 08/30/2012 14 - Other: See Comments Comments: Tongue swelling, difficulty swallowing Date Reviewed: 03/10/2022 Reviewed by: Roberto Gonzales RN - Fully Assessed Reason for Visit: Population Health Navigation Outreach [3910] Cmt: ACO SHAUN PCSA Prescriptions as of 02/13/2023 - potassium chloride (K-TAB) 10 mEq tablet Take 1 tablet by mouth once daily. - loratadine (CLARITIN) 10 mg tablet Take 1 tablet by mouth daily at bedtime. - cyanocobalamin (VITAMIN B-12) 1,000 mcg tab Take 1,000 mcg by mouth daily at bedtime. - atorvastatin (LIPITOR) 20 mg tablet Take 20 mg by mouth daily at bedtime. - carvedilol (COREG) 12.5 mg tablet Take 12.5 mg by mouth twice daily with meals. - ferrous sulfate 325 mg (65 mg iron) tablet Take 325 mg by mouth twice daily with meals. - levothyroxine (SYNTHROID) 75 mcg tablet Take 75 mcg by mouth six times a week. - levothyroxine (SYNTHROID) 75 mcg tablet Take 37.5 mcg by mouth one time a week. - warfarin (COUMADIN) 3 mg tablet Maintenance regimen as of 03.06.2022: Take 5 mg (2 x 1 mg tabs and 1 x 3 mg tab) every Friday, . Take 3 mg (1 x 3 mg tab) every Friday, Friday, Friday, Friday, Friday. - warfarin (COUMADIN) 1 mg tablet Maintenance regimen as of 03.06.2022: Take 5 mg (2 x 1 mg tabs and 1 x 3 mg tab) every Friday, . Take 3 mg (1 x 3 mg tab) every Friday, Friday, Friday, Friday, Friday. Problem List As Of Date 02/13/2023 Noted Resolved Syncope [R55] 08/30/2012 HTN (hypertension) [I10] 08/30/2012 Dyslipidemia [E78.5] 08/30/2012 SUMMARY [V999.95] 08/30/2012 01/29/2021 Cardiac enzymes elevated [R74.8] 08/30/2012 01/29/2021 RBBB (right bundle branch block with left anter*08/30/2012 Hypothyroidism [E03.9] 08/31/2012 History of breast cancer [Z85.3] 09/01/2012 Abnormal stress test [R94.39] 09/02/2012 implantable loop recorder [Z95.0] 06/08/2013 History of WI (myocardial infarction) [I25.2] 08/21/2013 Osteoarthritis of spine with radiculopathy, lum*01/24/2016 Acute bilateral low back pain with sciatica [M5*01/24/2016 01/29/2021 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] 04/08/2016 Cardiac arrhythmia [I49.9] 09/09/2016 Essential hypertension [I10] 01/08/2017 Vasculitis (HCC) [I77.6] 01/08/2017 Injury of toenail of right foot [S99.921A] 01/08/2017 01/29/2021 Iron deficiency anemia due to chronic blood los*07/16/2017 Gastric polyp [K31.7] 07/16/2017 Hypokalemia [E87.6] 07/16/2017 Chronic antral gastritis [K29.50] 07/16/2017 Acute right flank pain [R10.9] 10/15/2017 01/29/2021 Dizzy [R42] 04/27/2018 Decreased appetite [R63.0] 02/23/2019 Weight loss, unintentional [R63.4] 02/23/2019 Hypothyroidism, acquired [E03.9] 02/23/2019 Anemia [D64.9] 02/23/2019 Inflammatory polyarthropathy (HCC) [M06.4] 03/23/2019 Vaginal itching [N89.8] 05/19/2019 01/29/2021 Vitamin B12 deficiency [E53.8] 01/31/2021 Hypoalbuminemia [E88.09] 01/31/2021 Coronary artery disease involving picayune gómez*05/08/2021 Gait disorder [R26.9] 11/05/2021 Impaired fasting glucose [R73.01] 11/05/2021 Acute stroke due to ischemia (HCC) [I63.9] 03/07/[address] (more content not included)... [facility] 02-13-2023 Note HNO ID: [id number] Author: Abiola Lopez MA Service: ? Author Type: [employer] Attendant Type: Progress Notes Filed: 02/13/2023 3:45 PM Note Text: POPULATION HEALTH NAVIGATION OUTREACH Action/ no answer mychart message sent ANNUAL MEDICARE WELLNESS EXAM ADVANCE DIRECTIVE DISCUSSION Patient Identified by Name and : NO Outreach Outcome/Action Unable to reach patient: Phone number not valid / voicemail full LLUSTREhart message sent Did you use a PCP flex slot to schedule this appointment? N/A Reason for Outreach Care Gap or Scheduling/Wellness visits Payer: Payor: MEDICARE / Plan: MEDICARE A AND B / Product Type: Medicare / Care Gap Reviewed:: Annual Wellness visit Reminder: Reminder note to check Health Maintenance for items below Health Maintenance items due: SHINGRIX VACCINE(1 of 2) Never done COVID-19 VACCINE(4 - Booster for Pfizer series) due on 07/25/2021 ADVANCE DIRECTIVE DISCUSSION Never done DEPRESSION ASSESSMENT Never done LDL CHOLESTEROL due on 03/08/2023 Navigation Signature: Abiola Lopez MA February 13, 2023 10:42 AM [facility] 02-13-2023 History of Present illness Narrative POPULATION HEALTH NAVIGATION OUTREACH Action/ no answer mychart message sent ANNUAL MEDICARE WELLNESS EXAM ADVANCE DIRECTIVE DISCUSSION Patient Identified by Name and : NO Outreach Outcome/Action Unable to reach patient: Phone number not valid / voicemail full MyChart message sent Did you use a PCP flex slot to schedule this appointment? N/A Reason for Outreach Care Gap or Scheduling/Wellness visits Payer: Payor: MEDICARE / Plan: MEDICARE A AND B / Product Type: Medicare / Care Gap Reviewed:: Annual Wellness visit Reminder: Reminder note to check Health Maintenance for items below Health Maintenance items due: SHINGRIX VACCINE(1 of 2) Never done COVID-19 VACCINE(4 - Booster for Pfizer series) due on 07/25/2021 ADVANCE DIRECTIVE DISCUSSION Never done DEPRESSION ASSESSMENT Never done LDL CHOLESTEROL due on 03/08/2023 Navigation Signature: Abiola Lopez MA February 13, 2023 10:42 AM documented in this encounter [facility] 01-22-2023 Note HNO ID: [id number] Author: Michelle Rosenberg MA Service: ? Author Type: [employer] Dock Attendant Type: Progress Notes Filed: 01/22/2023 1:17 PM Note Text: POPULATION HEALTH NAVIGATION OUTREACH Action/January 22, 2023 1:07 PM HCC Gaps I77.6 - Vasculitis (HCC) - [id number] Last Billed 11/05/2021 M06.4 - Inflammatory polyarthropathy (HCC) - [id number] Last Billed 11/05/2021 TOLU with PCP Team was March 06, 2022 with Leslie Ling CNP Outcome: Spoke with patients sister in law. She advises that patient has been at [facility] since about last March and is now under the care of the physicians at this site now. She is no longer seening Dr Tovar. Advised her I will remove Dr Tovar as PCP at [facility]. Thank you Patient Identified by Name and : YES, via phone Outreach Outcome/Action Spoke to patient / parent / legal guardian: PCP confirmed / updated Did you use a PCP flex slot to schedule this appointment? N/A Reason for Outreach HCC or suspected condition Payer: Payor: MEDICARE / Plan: MEDICARE A AND B / Product Type: Medicare / Care Gap Reviewed:: N/A Reminder: Reminder note to check Health Maintenance for items below Health Maintenance items due: SHINGRIX VACCINE(1 of 2) Never done COVID-19 VACCINE(4 - Booster for Pfizer series) due on 07/25/2021 ADVANCE DIRECTIVE DISCUSSION Never done DEPRESSION ASSESSMENT Never done Navigation Signature: Michelle Rosenberg MA January 22, 2023 1:07 PM [facility] 01-22-2023 Note Patient Outreach (ROGELIO STEINBERG) GRACIE AVILA ([id number]) 1935 F Date Time Provider Department 01/22/23 MICHELLE ROSENBERG During your visit today, we recorded the following information about you: Michelle Rosenberg MA 01/22/2023 1:17 PM Signed POPULATION HEALTH NAVIGATION OUTREACH Action/January 22, 2023 1:07 PM HCC Gaps I77.6 - Vasculitis (HCC) - [id number] Last Billed 11/05/2021 M06.4 - Inflammatory polyarthropathy (HCC) - [id number] Last Billed 11/05/2021 TOLU with PCP Team was March 06, 2022 with Leslie Ling CNP Outcome: Spoke with patients sister in law. She advises that patient has been at [facility] since about last March and is now under the care of the physicians at this site now. She is no longer seening Dr Tovar. Advised her I will remove Dr Tovar as PCP at [facility]. Thank you Patient Identified by Name and : YES, via phone Outreach Outcome/Action Spoke to patient / parent / legal guardian: PCP confirmed / updated Did you use a PCP flex slot to schedule this appointment? N/A Reason for Outreach HCC or suspected condition Payer: Payor: MEDICARE / Plan: MEDICARE A AND B / Product Type: Medicare / Care Gap Reviewed:: N/A Reminder: Reminder note to check Health Maintenance for items below Health Maintenance items due: SHINGRIX VACCINE(1 of 2) Never done COVID-19 VACCINE(4 - Booster for Pfizer series) due on 07/25/2021 ADVANCE DIRECTIVE DISCUSSION Never done DEPRESSION ASSESSMENT Never done Navigation Signature: Michelle Rosenberg MA January 22, 2023 1:07 PM Allergies As of Date: 01/22/2023 Noted Allergy Reaction ADHESIVE TAPE (ROSINS) 10/07/2012 14 - Other: See Comments LEVAQUIN (LEVOFLOXACIN) 08/30/2012 14 - Other: See Comments Comments: Tongue swelling, difficulty swallowing LISINOPRIL 12/24/2012 14 - Other: See Comments Comments: angioedema PENICILLINS 08/30/2012 14 - Other: See Comments Comments: Tongue swelling, difficulty swallowing PREVACID (LANSOPRAZOLE) 03/26/2019 7 - Swelling Comments: patient reports tongue swelling SULFA (SULFONAMIDE ANTIBIOTICS) 08/30/2012 14 - Other: See Comments Comments: Tongue swelling, difficulty swallowing Date Reviewed: 03/10/2022 Reviewed by: Roberto Gonzales RN - Fully Assessed Reason for Visit: Population Health Navigation Outreach [3910] Cmt: ACO HCC Prescriptions as of 01/22/2023 - potassium chloride (K-TAB) 10 mEq tablet Take 1 tablet by mouth once daily. - loratadine (CLARITIN) 10 mg tablet Take 1 tablet by mouth daily at bedtime. - cyanocobalamin (VITAMIN B-12) 1,000 mcg tab Take 1,000 mcg by mouth daily at bedtime. - atorvastatin (LIPITOR) 20 mg tablet Take 20 mg by mouth daily at bedtime. - carvedilol (COREG) 12.5 mg tablet Take 12.5 mg by mouth twice daily with meals. - ferrous sulfate 325 mg (65 mg iron) tablet Take 325 mg by mouth twice daily with meals. - levothyroxine (SYNTHROID) 75 mcg tablet Take 75 mcg by mouth six times a week. - levothyroxine (SYNTHROID) 75 mcg tablet Take 37.5 mcg by mouth one time a week. - warfarin (COUMADIN) 3 mg tablet Maintenance regimen as of 03.06.2022: Take 5 mg (2 x 1 mg tabs and 1 x 3 mg tab) every Friday, . Take 3 mg (1 x 3 mg tab) every Friday, Friday, Friday, Friday, Friday. - warfarin (COUMADIN) 1 mg tablet Maintenance regimen as of 03.06.2022: Take 5 mg (2 x 1 mg tabs and 1 x 3 mg tab) every Friday, . Take 3 mg (1 x 3 mg tab) every Friday, Friday, Friday, Friday, Friday. Problem List As Of Date 01/22/2023 Noted Resolved Syncope [R55] 08/30/2012 HTN (hypertension) [I10] 08/30/2012 Dyslipidemia [E78.5] 08/30/2012 SUMMARY [V999.95] 08/30/2012 01/29/2021 Cardiac enzymes elevated [R74.8] 08/30/2012 01/29/2021 RBBB (right bundle branch block with left anter*08/30/2012 Hypothyroidism [E03.9] 08/31/2012 History of breast cancer [Z85.3] 09/01/2012 Abnormal stress test [R94.39] 09/02/2012 implantable loop recorder [Z95.0] 06/08/2013 History of [place] (myocardial infarction) [I25.2] 08/21/2013 Osteoarthritis of spine with radiculopathy, lum*01/24/2016 Acute bilateral low back pain with sciatica [M5*01/24/2016 01/29/2021 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] 04/08/2016 Cardiac arrhythmia [I49.9] 09/09/2016 Essential hypertension [I10] 01/08/2017 Vasculitis (HCC) [I77.6] 01/08/2017 Injury of toenail of right foot [S99.921A] 01/08/2017 01/29/2021 Iron deficiency anemia due to chronic blood los*07/16/2017 Gastric polyp [K31.7] 07/16/2017 Hypokalemia [E87.6] 07/16/2017 Chronic antral gastritis [K29.50] 07/16/2017 Acute right flank pain [R10.9] 10/15/2017 01/29/2021 Dizzy [R42] 04/27/2018 Decreased appetite [R63.0] 02/23/2019 Weight loss, unintentional [R63.4] 02/23/2019 Hypothyroidism, acquired [E03.9] 02/23/2019 Anemia [D64.9] 02/23/2019 Inflammatory polyarthropathy (HCC) [M06.4] 03/23/2019 Vaginal it (more content not included)... [facility] 01-22-2023 History of Present illness Narrative POPULATION HEALTH NAVIGATION OUTREACH Action/FYI January 22, 2023 1:07 PM HCC Gaps I77.6 - Vasculitis (HCC) - [id number] Last Billed 11/05/2021 M06.4 - Inflammatory polyarthropathy (HCC) - [id number] Last Billed 11/05/2021 TOLU with PCP Team was March 06, 2022 with Leslie Ling CNP Outcome: Spoke with patients sister in law. She advises that patient has been at [facility] since about last March and is now under the care of the physicians at this site now. She is no longer seening Dr Tovar. Advised her I will remove Dr Tovar as PCP at [facility]. Thank you Patient Identified by Name and : YES, via phone Outreach Outcome/Action Spoke to patient / parent / legal guardian: PCP confirmed / updated Did you use a PCP flex slot to schedule this appointment? N/A Reason for Outreach HCC or suspected condition Payer: Payor: MEDICARE / Plan: MEDICARE A AND B / Product Type: Medicare / Care Gap Reviewed:: N/A Reminder: Reminder note to check Health Maintenance for items below Health Maintenance items due: SHINGRIX VACCINE(1 of 2) Never done COVID-19 VACCINE(4 - Booster for Pfizer series) due on 07/25/2021 ADVANCE DIRECTIVE DISCUSSION Never done DEPRESSION ASSESSMENT Never done Navigation Signature: Michelle Rosenberg MA January 22, 2023 1:07 PM documented in this encounter [facility] 12-03-2022 Note HNO ID: [id number] Author: Michelle Rosenberg MA Service: ? Author Type: [employer] Dock Attendant Type: Progress Notes Filed: 12/03/2022 12:18 PM Note Text: POPULATION HEALTH NAVIGATION OUTREACH Action/December 03, 2022 12:14 PM HCC Gaps I77.6 - Vasculitis (HCC) - [id number] Last Billed 11/05/2021 M06.4 - Inflammatory polyarthropathy (HCC) - [id number] Last Billed 11/05/2021 TOLU with PCP Team was March 06, 2022 with Leslie Ling CNP Outcome: Left message My chart sent Patient Identified by Name and : NO Outreach Outcome/Action Unable to reach patient: Left message LLUSTREhart message sent Did you use a PCP flex slot to schedule this appointment? N/A Reason for Outreach HCC or suspected condition Payer: Payor: MEDICARE / Plan: MEDICARE A AND B / Product Type: Medicare / Care Gap Reviewed:: Annual Wellness visit Reminder: Reminder note to check Health Maintenance for items below Health Maintenance items due: SHINGRIX VACCINE(1 of 2) Never done COVID-19 VACCINE(4 - Booster for Pfizer series) due on 07/25/2021 ADVANCE DIRECTIVE DISCUSSION Never done DEPRESSION ASSESSMENT Never done Navigation Signature: Michelle Rosenberg MA December 03, 2022 12:14 PM [facility] 12-03-2022 Note Patient Outreach (ROGELIO TNAV) GRACIE AVILA ([id number]) 1935 F Date Time Provider Department 12/03/22 MICHELLE ROSENBERG During your visit today, we recorded the following information about you: Michelle Rosenberg MA 12/03/2022 12:18 PM Signed POPULATION HEALTH NAVIGATION OUTREACH Action/December 03, 2022 12:14 PM HCC Gaps I77.6 - Vasculitis (HCC) - [id number] Last Billed 11/05/2021 M06.4 - Inflammatory polyarthropathy (HCC) - [id number] Last Billed 11/05/2021 TOLU with PCP Team was March 06, 2022 with Leslie Ling CNP Outcome: Left message My chart sent Patient Identified by Name and : NO Outreach Outcome/Action Unable to reach patient: Left message MyChart message sent Did you use a PCP flex slot to schedule this appointment? N/A Reason for Outreach HCC or suspected condition Payer: Payor: MEDICARE / Plan: MEDICARE A AND B / Product Type: Medicare / Care Gap Reviewed:: Annual Wellness visit Reminder: Reminder note to check Health Maintenance for items below Health Maintenance items due: SHINGRIX VACCINE(1 of 2) Never done COVID-19 VACCINE(4 - Booster for Pfizer series) due on 07/25/2021 ADVANCE DIRECTIVE DISCUSSION Never done DEPRESSION ASSESSMENT Never done Navigation Signature: Michelle Rosenberg MA December 03, 2022 12:14 PM Allergies As of Date: 12/03/2022 Noted Allergy Reaction ADHESIVE TAPE (ROSINS) 10/07/2012 14 - Other: See Comments LEVAQUIN (LEVOFLOXACIN) 08/30/2012 14 - Other: See Comments Comments: Tongue swelling, difficulty swallowing LISINOPRIL 12/24/2012 14 - Other: See Comments Comments: angioedema PENICILLINS 08/30/2012 14 - Other: See Comments Comments: Tongue swelling, difficulty swallowing PREVACID (LANSOPRAZOLE) 03/26/2019 7 - Swelling Comments: patient reports tongue swelling SULFA (SULFONAMIDE ANTIBIOTICS) 08/30/2012 14 - Other: See Comments Comments: Tongue swelling, difficulty swallowing Date Reviewed: 03/10/2022 Reviewed by: Roberto Gonzales RN - Fully Assessed Reason for Visit: Population Health Navigation Outreach [3910] Cmt: ACO HCC Prescriptions as of 12/03/2022 - potassium chloride (K-TAB) 10 mEq tablet Take 1 tablet by mouth once daily. - loratadine (CLARITIN) 10 mg tablet Take 1 tablet by mouth daily at bedtime. - cyanocobalamin (VITAMIN B-12) 1,000 mcg tab Take 1,000 mcg by mouth daily at bedtime. - atorvastatin (LIPITOR) 20 mg tablet Take 20 mg by mouth daily at bedtime. - carvedilol (COREG) 12.5 mg tablet Take 12.5 mg by mouth twice daily with meals. - ferrous sulfate 325 mg (65 mg iron) tablet Take 325 mg by mouth twice daily with meals. - levothyroxine (SYNTHROID) 75 mcg tablet Take 75 mcg by mouth six times a week. - levothyroxine (SYNTHROID) 75 mcg tablet Take 37.5 mcg by mouth one time a week. - warfarin (COUMADIN) 3 mg tablet Maintenance regimen as of 03.06.2022: Take 5 mg (2 x 1 mg tabs and 1 x 3 mg tab) every Friday, . Take 3 mg (1 x 3 mg tab) every Friday, Friday, Friday, Friday, Friday. - warfarin (COUMADIN) 1 mg tablet Maintenance regimen as of 03.06.2022: Take 5 mg (2 x 1 mg tabs and 1 x 3 mg tab) every Friday, . Take 3 mg (1 x 3 mg tab) every Friday, Friday, Friday, Friday, Friday. Problem List As Of Date 12/03/2022 Noted Resolved Syncope [R55] 08/30/2012 HTN (hypertension) [I10] 08/30/2012 Dyslipidemia [E78.5] 08/30/2012 SUMMARY [V999.95] 08/30/2012 01/29/2021 Cardiac enzymes elevated [R74.8] 08/30/2012 01/29/2021 RBBB (right bundle branch block with left anter*08/30/2012 Hypothyroidism [E03.9] 08/31/2012 History of breast cancer [Z85.3] 09/01/2012 Abnormal stress test [R94.39] 09/02/2012 implantable loop recorder [Z95.0] 06/08/2013 History of [place] (myocardial infarction) [I25.2] 08/21/2013 Osteoarthritis of spine with radiculopathy, lum*01/24/2016 Acute bilateral low back pain with sciatica [M5*01/24/2016 01/29/2021 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] 04/08/2016 Cardiac arrhythmia [I49.9] 09/09/2016 Essential hypertension [I10] 01/08/2017 Vasculitis (HCC) [I77.6] 01/08/2017 Injury of toenail of right foot [S99.921A] 01/08/2017 01/29/2021 Iron deficiency anemia due to chronic blood los*07/16/2017 Gastric polyp [K31.7] 07/16/2017 Hypokalemia [E87.6] 07/16/2017 Chronic antral gastritis [K29.50] 07/16/2017 Acute right flank pain [R10.9] 10/15/2017 01/29/2021 Dizzy [R42] 04/27/2018 Decreased appetite [R63.0] 02/23/2019 Weight loss, unintentional [R63.4] 02/23/2019 Hypothyroidism, acquired [E03.9] 02/23/2019 Anemia [D64.9] 02/23/2019 Inflammatory polyarthropathy (HCC) [M06.4] 03/23/2019 Vaginal itching [N89.8] 05/19/2019 01/29/2021 Vitamin B12 deficiency [E53.8] 01/31/2021 Hypoalbuminemia [E88.09] 01/31/2021 Coronary artery disease involving picayune gómez*05/08/2021 Gait disorder [R26.9] 11/05/2021 Impaired fasting glucose [R73.01] 03 (more content not included)... [facility] 11-05-2022 Miscellaneous Notes Patient has been identified by name and date of : Pharmacy phones for refill(s): Requested Prescriptions Pending Prescriptions Disp Refills potassium chloride (K-TAB) 10 mEq tablet 90 tablet Sig: Take 1 tablet by mouth once daily. Date of last office visit in primary care: [place] resident Last 2 Encounter Wt Readings: Date: Wt: 03/07/2022 53.5 kg (117 lb 15.1 oz) 03/06/2022 53.6 kg (118 lb 1.9 oz) Previous labs/tests for medication: Blood Pressure: BUN (mg/dL) Date Value 03/09/2022 14 10/11/2021 13 Sodium (mmol/L) Date Value 03/09/2022 141 10/11/2021 146 Last 1 Encounter BP Readings: Date: BP: 03/07/2022 110/57 Please advise. Thank you. Mary Fairbanks [facility] requesting 90 day rx, they deliver to [place]. documented in this encounter [facility] 08-30-2022 Note HNO ID: [id number] Author: Dequan Villa RN Service: ? Author Type: Registered Nurse Type: Progress Notes Filed: 08/30/2022 11:28 AM Note Text: [facility] Enrollment Provider Action/FYI: Patient referred by: [facility] Chelsey Contact made with patient: No - Unable to leave message: (Keep encounter open and attempt 2nd outreach in two business days from today). END OUTREACH [facility] 08-30-2022 History of Present illness Narrative [facility] Enrollment Provider Action/FYI: Patient referred by: [facility] Chelsey Contact made with patient: No - Unable to leave message: (Keep encounter open and attempt 2nd outreach in two business days from today). END OUTREACH [facility] Enrollment Provider Action/FYI: Patient referred by: [facility] Chelsey Contact made with patient: No - Left Message: Hi my name is Dequan Villa RN and I am calling from the [facility] on behalf of your PCP, Elmo Tovar DO. We are excited to share with you a new program to help you manage your health. Please call me back at [phone] between the hours of 8am-5pm Friday-Friday. You will receive another phone call from me within the next two business days. I hope you can take the time to speak with me. (Keep encounter open and attempt 2nd outreach in two business days from today) END OUTREACH documented in this encounter [facility] 08-28-2022 Note Patient Out[place] GRACIE AVILA ([id number]) 1935 F Date Time Provider Department 08/28/22 DEQUAN VILLA During your visit today, we recorded the following information about you: Dequan Villa RN 08/30/2022 11:28 AM Signed [employer] [facility] Enrollment Provider Action/FYI: Patient referred by: [facility] Chelsey Contact made with patient: No - Left Message: Hi my name is Dequan Villa RN and I am calling from the [facility] on behalf of your PCP, Elmo Tovar DO. We are excited to share with you a new program to help you manage your health. Please call me back at [phone] between the hours of 8am-5pm Friday-Friday. You will receive another phone call from me within the next two business days. I hope you can take the time to speak with me. (Keep encounter open and attempt 2nd outreach in two business days from today) END OUTREACH Dequan Villa RN 08/30/2022 11:28 AM Signed [employer] [facility] Enrollment Provider Action/FYI: Patient referred by: [facility] Chelsey Contact made with patient: No - Unable to leave message: (Keep encounter open and attempt 2nd outreach in two business days from today). END OUTREACH Allergies As of Date: 08/28/2022 Noted Allergy Reaction ADHESIVE TAPE (ROSINS) 10/07/2012 14 - Other: See Comments LEVAQUIN (LEVOFLOXACIN) 08/30/2012 14 - Other: See Comments Comments: Tongue swelling, difficulty swallowing LISINOPRIL 12/24/2012 14 - Other: See Comments Comments: angioedema PENICILLINS 08/30/2012 14 - Other: See Comments Comments: Tongue swelling, difficulty swallowing PREVACID (LANSOPRAZOLE) 03/26/2019 7 - Swelling Comments: patient reports tongue swelling SULFA (SULFONAMIDE ANTIBIOTICS) 08/30/2012 14 - Other: See Comments Comments: Tongue swelling, difficulty swallowing Date Reviewed: 03/10/2022 Reviewed by: Roberto Gonzales RN - Fully Assessed Reason for Visit: cdm [Other] Cmt: enrollment Primary Visit Diagnosis:Vitamin B12 deficiency [E53.8] Order(s):CONSULT TO PRIMARY CARE COORDINATION CDM [[id number]] Order #: [id number]: 1 Prescriptions as of 08/30/2022 - loratadine (CLARITIN) 10 mg tablet Take 1 tablet by mouth daily at bedtime. - cyanocobalamin (VITAMIN B-12) 1,000 mcg tab Take 1,000 mcg by mouth daily at bedtime. - atorvastatin (LIPITOR) 20 mg tablet Take 20 mg by mouth daily at bedtime. - carvedilol (COREG) 12.5 mg tablet Take 12.5 mg by mouth twice daily with meals. - ferrous sulfate 325 mg (65 mg iron) tablet Take 325 mg by mouth twice daily with meals. - levothyroxine (SYNTHROID) 75 mcg tablet Take 75 mcg by mouth six times a week. - levothyroxine (SYNTHROID) 75 mcg tablet Take 37.5 mcg by mouth one time a week. - potassium chloride (K-TAB) 10 mEq tablet Take 10 mEq by mouth once daily. - warfarin (COUMADIN) 3 mg tablet Maintenance regimen as of 03.06.2022: Take 5 mg (2 x 1 mg tabs and 1 x 3 mg tab) every Friday, . Take 3 mg (1 x 3 mg tab) every Friday, Friday, Friday, Friday, Friday. - warfarin (COUMADIN) 1 mg tablet Maintenance regimen as of 03.06.2022: Take 5 mg (2 x 1 mg tabs and 1 x 3 mg tab) every Friday, . Take 3 mg (1 x 3 mg tab) every Friday, Friday, Friday, Friday, Friday. Problem List As Of Date 08/28/2022 Noted Resolved Syncope [R55] 08/30/2012 HTN (hypertension) [I10] 08/30/2012 Dyslipidemia [E78.5] 08/30/2012 SUMMARY [V999.95] 08/30/2012 01/29/2021 Cardiac enzymes elevated [R74.8] 08/30/2012 01/29/2021 RBBB (right bundle branch block with left anter*08/30/2012 Hypothyroidism [E03.9] 08/31/2012 History of breast cancer [Z85.3] 09/01/2012 Abnormal stress test [R94.39] 09/02/2012 implantable loop recorder [Z95.0] 06/08/2013 History of [place] (myocardial infarction) [I25.2] 08/21/2013 Osteoarthritis of spine with radiculopathy, lum*01/24/2016 Acute bilateral low back pain with sciatica [M5*01/24/2016 01/29/2021 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] 04/08/2016 Cardiac arrhythmia [I49.9] 09/09/2016 Essential hypertension [I10] 01/08/2017 Vasculitis (HCC) [I77.6] 01/08/2017 Injury of toenail of right foot [S99.921A] 01/08/2017 01/29/2021 Iron deficiency anemia due to chronic blood los*07/16/2017 Gastric polyp [K31.7] 07/16/2017 Hypokalemia [E87.6] 07/16/2017 Chronic antral gastritis [K29.50] 07/16/2017 Acute right flank pain [R10.9] 10/15/2017 01/29/2021 Dizzy [R42] 04/27/2018 Decreased appetite [R63.0] 02/23/2019 Weight loss, unintentional [R63.4] 02/23/2019 Hypothyroidism, acquired [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 [facility] 08-28-2022 Note HNO ID: [id number] Author: Dequan Villa RN Service: ? Author Type: Registered Nurse Type: Progress Notes Filed: 08/30/2022 11:28 AM Note Text: [facility] CDM Enrollment Provider Action/FYI: Patient referred by: VBC Chelsey Contact made with patient: No - Left Message: Hi my name is Dequan Villa RN and I am calling from the [facility] on behalf of your PCP, Elmo Tovar DO. We are excited to share with you a new program to help you manage your health. Please call me back at [phone] between the hours of 8am-5pm Friday-Friday. You will receive another phone call from me within the next two business days. I hope you can take the time to speak with me. (Keep encounter open and attempt 2nd outreach in two business days from today) END OUTREACH [facility] 07-09-2022 Miscellaneous Notes The following approved medication requests have been transmitted electronically. Requested Prescriptions Signed Prescriptions Disp Refills loratadine (CLARITIN) 10 mg tablet 90 tablet 3 Sig: Take 1 tablet by mouth daily at bedtime. Authorizing Provider: ELMO TOVAR DO Gracie Avila [facility] calling Elmo Tovar DO today to request a refill on medication not on current medication list Loratadine 10 mg taking one tablet by mouth at bedtime Please fill 90 day supply at pharmacy when approved Patient has been identified by name and birthdate. Duration of symptoms: N/A Person calling: pharmacy: Ismael Dunn Was an appointment scheduled: No Closing statement: Results or non-symptom based questions: Thank you for calling [facility], your call will be returned within the next business day. Kimmy Scruggs [facility] documented in this encounter [facility] 05-03-2022 Note HNO ID: [id number] Author: Michelle Keyes APRN.COLLATERAL CLERK Service: ? Author Type: Nurse Practitioner Type: Progress Notes Filed: 05/03/2022 8:18 AM Note Text: Resent per daughter's request. Refer to paperwork in outbox. The following approved medication requests have been transmitted electronically. Requested Prescriptions Signed Prescriptions Disp Refills loratadine (CLARITIN) 10 mg tablet 30 tablet 2 Sig: Take 1 tablet by mouth daily at bedtime. Michelle Keyes APRN.CNP [facility] 05-02-2022 Note HNO ID: [id number] Author: Michelle Keyes APRN.CNP Service: ? Author Type: Nurse Practitioner Type: Progress Notes Filed: 05/02/2022 8:08 AM Note Text: The following approved medication requests have been transmitted electronically. Requested Prescriptions Signed Prescriptions Disp Refills loratadine (CLARITIN) 10 mg tablet 30 tablet 2 Sig: Take 1 tablet by mouth daily at bedtime. Michelle Keyes APRN.CNP [facility] 05-02-2022 History of Present illness Narrative The following approved medication requests have been transmitted electronically. Requested Prescriptions Signed Prescriptions Disp Refills loratadine (CLARITIN) 10 mg tablet 30 tablet 2 Sig: Take 1 tablet by mouth daily at bedtime. Michelle Keyes APRN.CNP documented in this encounter [facility] 04-12-2022 Miscellaneous Notes Spoke with pts daughter Erin gave information provided. She voices understanding. I believe this has to be ordered by new provider due to being completed within facility. Please have her discuss with Dr. Carrera. Thank you, Michelle Keyes APRN.CNP Pts daughter called in and reports that her Mother will be moving into [facility]. She reports she will be transitioning to their provider Dr Moiz Carrera. She reports that this provider had gotten PT and OT approved for the Pt and she wanted to see if that could be transferred over to [place] so her mother could start PT/OT as soon as possible. She reports she is doing ok, but is getting too comfortable in the wheelchair. Please call and advise daughter. documented in this encounter [facility] 03-28-2022 Miscellaneous Notes Letter printed will fax to [facility]. Pt daughter notified of info. Will contact [facility] in the AM with info. Miriam Ledesma Ma Ok to discontinue O2. Please relay verbal order to do so. Thank you, Michelle Keyes APRN.DAYAN Pt's daughter Erin is calling to report pt has been in [facility] rehab and family is currently looking for an assisted living facility. Erin reports pt had O2 from [facility] when she had pneumonia. Erin reports while in rehab pt has not used O2 at all x 2 weeks. Erin is asking if an order can be sent to [facility] to stop O2. [facility] advised they need an order from the dr to discontinue service. Call Erin with dr's message. Marlys Gómez LPN documented in this encounter [facility] 03-14-2022 Miscellaneous Notes Noted, thank you. Leslie Ling APRN.COLLATERAL CLERK Justyna- [facility] HH- wanted to let provider know, she is not setting up HH for patient at this time, because patient is at [facility]. Reports [facility] usually sends them the info on discharge. documented in this encounter [facility] 03-13-2022 Miscellaneous Notes Fax information and order to [facility]. Please fax order to [facility] home health. Leslie Ling APRN.COLLATERAL CLERK Pts daughter called in asking about how the provider was coming on getting PT and OT set up for the patient. Under Patient Instructions it says: Expect [facility] to contact you about starting homecare, PT, OT. I didn't see an order placed for HH. Pt is at [facility] since DC from [facility] on Friday. [facility] is looking for HH too, but they told the daughter maybe by this weekend they may have something. Please call and advise. documented in this encounter [facility] 03-09-2022 Note HNO ID: [id number] Author: Tanja Javier MD Service: Hospital Medicine Author Type: Physician Type: Progress Notes Filed: 03/09/2022 1:59 PM Note Text: DEPARTMENT OF HOSPITAL MEDICINE PROGRESS NOTE Name: Gracie Avila SERVICE DATE: March 09, 2022 SERVICE TIME: 1:56 PM Hospital Medicine/Primary Attending: Tanja Javier MD (pager: [phone]) NIGHT COVERAGE: pager # [phone] (Page between 4:30 PM - 7:30 AM) INTERVAL HPI: No new symptoms. right arm weakness improved and resolved MEDICATIONS: Current Facility-Administered Medications Medication Dose Route Frequency - NaCl 0.9% iv flush bag 20 mL INTRAVENOUS PRN - carvedilol 12.5 mg tab(s) (COREG) 12.5 mg ORAL BID w MEALS - cetirizine 10 mg tab(s) (ZyrTEC) 10 mg ORAL AT BEDTIME - ferrous sulfate 325 mg tab(s) 325 mg ORAL BID w MEALS - cyanocobalamin 1,000 mcg tab(s) (VITAMIN B-12) 1,000 mcg ORAL AT BEDTIME - sodium chloride 0.9 % (flush) 3-5 mL (BD POSIFLUSH) 3-5 mL INTRAVENOUS q 12 H - warfarin dose per INR - Call physician daily for dose ORAL DAILY - WARFARIN - [START ON 03/10/2022] levothyroxine 37.5 mcg tab(s) (SYNTHROID) 37.5 mcg ORAL q SUN - levothyroxine 75 mcg tab(s) (SYNTHROID) 75 mcg ORAL Once per day on Fri - acetaminophen 325 mg tab(s) (TYLENOL) 325 mg ORAL q 6 H PRN - albuterol HFA 90 mcg/actuation 2 Puff (PROVENTIL HFA, VENTOLIN HFA) 2 Puff INHALATION q 4 H PRN - benzocaine-menthol 1 Lozenge (CEPACOL) 1 Lozenge MUCOUS MEMBRANE (TOPICAL MOUTH AND THROAT) q 2 H PRN - benzonatate 100 mg cap(s) (TESSALON PERLE) 100 mg ORAL TID PRN - calcium carbonate 500 mg chewable tab(s) (TUMS) 500 mg ORAL BID PRN - melatonin 1 mg tab(s) 1 mg ORAL AT BEDTIME PRN - ondansetron (PF) 4 mg injection (ZOFRAN) 4 mg INTRAVENOUS q 6 H PRN - polyethylene glycol 3350 17 g packet (MIRALAX, GLYCOLAX) 17 g ORAL DAILY PRN - polyvinyl alcohol 1.4 % 1 Drop (LIQUIFILM TEARS) 1 Drop BOTH EYES TID PRN - sodium chloride 0.9 % (flush) 2-10 mL (BD POSIFLUSH) 2-10 mL INTRAVENOUS DIRECTED PRN And - perflutren lipid microspheres 1.1 mg/mL 1.3 mL injection (DEFINITY) 1.3 mL INTRAVENOUS DIRECTED PRN - atorvastatin 40 mg tab(s) (LIPITOR) 40 mg ORAL AT BEDTIME - enoxaparin 60 mg injection (LOVENOX) 60 mg SUBCUTANEOUS q 24 HR - warfarin 5 mg tab(s) (COUMADIN) 5 mg ORAL ONCE - WARFARIN PHYSICAL EXAM: Blood pressure 115/55, pulse 88, temperature 36.4 ?C (97.5 ?F), temperature source Temporal, resp. rate 18, height 160 cm (5' 3 ), weight 53.5 kg (117 lb 15.1 oz), SpO2 89 %. GENERAL: alert, no distress, cooperative SKIN: No rash or lesions OROPHARYNX: Lips, mucosa, and tongue normal. Oropharynx moist. LUNGS: Lungs clear to auscultation. Good diaphragmatic excursion. CARDIAC: normal S1 and S2; no rubs, murmurs, or gallops. No JVD ABDOMEN: Abdomen soft, non-tender. BS normal. No masses or organomegaly. EXTREMITIES: No edema. NEURO: Negative DATA: Recent Labs 03/09/22 0530 03/08/22 0525 03/07/22 1316 03/06/22 1132 WBC 4.60 4.43 4.50 5.27 HB 12.8 11.6 11.9 12.4 HCT 39.4 35.4* 36.7 38.5 PLT 216 226 252 291 MCV 90.4 89.6 91.1 91.4 RDWCV 12.8 13.0 13.1 13.2 NEUTP -- -- 46.9 -- ABSNEUT -- -- 2.11 -- LYMPHP -- -- 38.9 -- MONOP -- -- 10.2 -- GLUC 97 98 103* 108* NA 141 141 140 141 K 4.2 4.2 4.3 4.8 CHLOR 106* 106* 104 106* CO2 28 29 30 27 ANION 7* 6* 6* 8* BUN 14 15 18 15 CREAT 0.67 0.66 0.77 0.67 ASSESSMENT AND PLAN 86 YF with hx of HTN, prior stroke, HPL, hypothyroidism and breast cancer presented with RUE weakness which appears to have resolved. She was evaluated by neurology with both MRI of the brain and EEG being negative. 1) RUE weakness of unclear etiology -Continue with secondary prophylaxis for prior stroke -Appreciate input from neurology -INR subtherapeutic, continue Coumadin 2) hypertension -Stable, continue current medications. DC planning to SNF VTE Prophylaxis: On coumadin Disposition: SNF Plan of care discussed with: Provider, RN, Patient SIGNATURE: Tanja Javier MD PAGER: [phone] DATE: March 09, 2022 TIME: 1:56 PM [facility] 03-09-2022 Note HNO ID: [id number] Author: Interface Note Service: ? Author Type: ? Type: Progress Notes Filed: 03/09/2022 3:48 AM Note Text: Epic Scheduled Downtime: 03/09/2022 1:00:00 AM to 03/09/2022 3:43:52 AM [facility] 03-08-2022 Note HNO ID: [id number] Author: Lizeth Ortega DO Service: Hospital Medicine Author Type: Physician Type: Progress Notes Filed: 03/08/2022 10:48 PM Note Text: DEPARTMENT OF HOSPITAL MEDICINE PROGRESS NOTE SERVICE DATE: 03/08/2022 SERVICE TIME: 12:22 PM Hospital Medicine/Primary Attending: Lizeth Ortega DO NIGHT AND WEEKEND COVERAGE: [place] COVERAGE: Days: [phone], please page attending physician. Nights: [phone], please page [place] Hospitalist Night coverage pager [phone]. Subjective INTERVAL HPI: denies any chest pain or shortness of breath. Right arm weakness much improved. Current Facility-Administered Medications Medication Dose Route Frequency - NaCl 0.9% iv flush bag 20 mL INTRAVENOUS PRN - carvedilol 12.5 mg tab(s) (COREG) 12.5 mg ORAL BID w MEALS - cetirizine 10 mg tab(s) (ZyrTEC) 10 mg ORAL AT BEDTIME - ferrous sulfate 325 mg tab(s) 325 mg ORAL BID w MEALS - cyanocobalamin 1,000 mcg tab(s) (VITAMIN B-12) 1,000 mcg ORAL AT BEDTIME - sodium chloride 0.9 % (flush) 3-5 mL (BD POSIFLUSH) 3-5 mL INTRAVENOUS q 12 H - warfarin dose per INR - Call physician daily for dose ORAL DAILY - WARFARIN - [START ON 03/10/2022] levothyroxine 37.5 mcg tab(s) (SYNTHROID) 37.5 mcg ORAL q SUN - levothyroxine 75 mcg tab(s) (SYNTHROID) 75 mcg ORAL Once per day on Fri - acetaminophen 325 mg tab(s) (TYLENOL) 325 mg ORAL q 6 H PRN - albuterol HFA 90 mcg/actuation 2 Puff (PROVENTIL HFA, VENTOLIN HFA) 2 Puff INHALATION q 4 H PRN - benzocaine-menthol 1 Lozenge (CEPACOL) 1 Lozenge MUCOUS MEMBRANE (TOPICAL MOUTH AND THROAT) q 2 H PRN - benzonatate 100 mg cap(s) (TESSALON PERLE) 100 mg ORAL TID PRN - calcium carbonate 500 mg chewable tab(s) (TUMS) 500 mg ORAL BID PRN - melatonin 1 mg tab(s) 1 mg ORAL AT BEDTIME PRN - ondansetron (PF) 4 mg injection (ZOFRAN) 4 mg INTRAVENOUS q 6 H PRN - polyethylene glycol 3350 17 g packet (MIRALAX, GLYCOLAX) 17 g ORAL DAILY PRN - polyvinyl alcohol 1.4 % 1 Drop (LIQUIFILM TEARS) 1 Drop BOTH EYES TID PRN - sodium chloride 0.9 % (flush) 2-10 mL (BD POSIFLUSH) 2-10 mL INTRAVENOUS DIRECTED PRN And - perflutren lipid microspheres 1.1 mg/mL 1.3 mL injection (DEFINITY) 1.3 mL INTRAVENOUS DIRECTED PRN - atorvastatin 40 mg tab(s) (LIPITOR) 40 mg ORAL AT BEDTIME Objective PHYSICAL EXAM: BP 101/58 Pulse 68 Temp (Src) 97.2 (Temporal) Resp 18 Ht 5' 3 (1.60m) Wt 117 lb 15.1 oz (53.5kg) SpO2 92% BMI 20.90 kg/(m2). O2 Therapy: Room Air, Liters: 2 Physical Exam Performed GENERAL: Alert, no distress, cooperative SKIN: Skin color, texture, turgor normal. No rashes or lesions. EYES: PERRLA, EOMI OROPHARYNX: Lips, mucosa, and tongue normal. Teeth and gums normal. Oropharynx normal. LUNGS: Lungs clear to auscultation, Good diaphragmatic excursion CARDIAC: Normal S1 and S2; no rubs, murmurs, or gallops ABDOMEN: Abdomen soft, non-tender, BS normal, No masses or organomegaly EXTREMITIES: Extremities normal, no deformities, edema, clubbing or skin discoloration. 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 NEURO: Cranial nerves II-XII intact, speech intact Lines, Drains, and Airways Line Peripheral 03/07/22 1504 Assessment Short Left Antecubital 20 Gauge <1 day DATA: Diagnostic tests reviewed for today's visit: Most recent labs Most recent imaging Most recent EKG Assessment/Plan Problem List Acute stroke due to ischemia (HCC) POA: Yes Hypothyroidism POA: Yes HTN (hypertension) POA: Yes Dyslipidemia POA: Yes History of breast cancer POA: Yes History of WI (myocardial infarction) POA: Yes Essential hypertension POA: Yes Vitamin B12 deficiency POA: Yes 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 History of obtained from daughter Erin over phone. Patient had ED visit [facility] on 03/05/2022:?for lost of complete use of her right arm. ?Was confused. Unable to hold onto her walker with her right hand-kept slipping off and was tingling. ?CT scans, EKG, were all negative and she was sent home with dx of weakness. Subsequently she went to see her PCP yesterday and was still unable to use her right hand very well-could not feed herself breakfast, couldn't tie shoes, unable to hold onto walker, Increased confusion, occasional difficulty getting her words out.?Outpatient CTA head/neck yesterday showed No acute intracranial abnormalities. ?Chronic bilateral MCA territory infarcts right much greater than the left. No hemodynamically significant stenoses in the neck or intracranial arteries. Patient was hospitalized at [facility] on 02/15/2022:?Was se (more content not included)... [facility] 03-08-2022 Note HNO ID: [id number] Author: RT Renaldo(R) Service: Radiology Author Type: Technologist Type: Progress Notes Filed: 03/08/2022 9:12 AM Note Text: Radiology Service Progress Note PATIENT NAME: Gracie Avila DATE OF SERVICE: March 08, 2022 TIME: 9:11 AM PATIENT IDENTITY VERIFICATION COMPLETED USING TWO (2) IDENTIFIERS: Name and Date of confirmed by patient verbally and Name and Date of confirmed by identification band. FALL SCREENING: Has the patient had 2 falls in the last year or 1 fall with injury or currently using an Ambulatory Assistive Device (Walker, Cane, Wheelchair, Crutches, etc.)? Inpatient: Screened on floor PATIENT GENDER DATA: Female. status: : No status: NO. PATIENT RELEVANT IMPLANT DATA REVIEWED: Yes RADIOLOGY DEPARTMENT: CT; Exam(s) Completed: Brain PERIPHERAL IV DATA: Not applicable SIGNED BY: RT Renaldo(R) March 08, 2022 9:11 AM [facility] 03-07-2022 Note HNO ID: [id number] Author: Teri Mina [facility] Service: Pharmacy Author Type: Pharmacist Type: Plan of Care Filed: 03/07/2022 5:20 PM Note Text: PHARMACY MEDICATION REVIEW Patient Name: Gracie Avila : 1935 The following medications were updated within the [facility] medication list: Medications ADDED to [facility] medication list ? None Medications CHANGED on [facility] medication list ? Warfarin - dose and sig ? Patient receives 1 mg and 3 mg tablets from the pharmacy ? Maintenance dose as of 03/06/22 ? Take 5 mg PO (1 x 3 mg and 2 x 1 mg) every Friday and ? Take 3 mg PO (1 x 3 mg) every Friday, Friday, Friday, Friday, Friday Medications REMOVED from [facility] medication list ? None Additional comments: N/A The below information represents the best possible medication history: Yes Medication history completed by: sap solution manager consultant: Betty Garcia Source of history: Prescription bottles Medication nonadherence identified: No barriers noted Reconciliation completed: No, patient not yet admitted. Patient interested in Bedside Delivery Services or using OP Pharmacy at discharge? No Preferred outpatient pharmacy: [facility] [address] [place] [phone] [facility] [phone] [id number] Allergies: Adhesive Tape (Idana* Other: See Comments Levaquin [Levofloxa* Other: See Comments Comment:Tongue swelling, difficulty swallowing Lisinopril Other: See Comments Comment:angioedema Penicillins Other: See Comments Comment:Tongue swelling, difficulty swallowing Prevacid [Lansopraz* Swelling Comment:patient reports tongue swelling Sulfa (Sulfonamide * Other: See Comments Comment:Tongue swelling, difficulty swallowing Prior to Admission Medications Prescriptions Last Dose Informant Patient Reported? Taking? atorvastatin (LIPITOR) 20 mg tablet 03/06/2022 Yes Yes Sig: Take 20 mg by mouth daily at bedtime. carvedilol (COREG) 12.5 mg tablet 03/07/2022 Yes Yes Sig: Take 12.5 mg by mouth twice daily with meals. cyanocobalamin (VITAMIN B-12) 1,000 mcg tab 03/06/2022 Yes Yes Sig: Take 1,000 mcg by mouth daily at bedtime. ferrous sulfate 325 mg (65 mg iron) tablet 03/07/2022 Yes Yes Sig: Take 325 mg by mouth twice daily with meals. levothyroxine (SYNTHROID) 75 mcg tablet Past Week Yes Yes Sig: Take 75 mcg by mouth six times a week. levothyroxine (SYNTHROID) 75 mcg tablet Past Week Yes Yes Sig: Take 37.5 mcg by mouth one time a week. loratadine (CLARITIN) 10 mg tablet Past Week Yes Yes Sig: Take 10 mg by mouth daily at bedtime. potassium chloride (K-TAB) 10 mEq tablet Past Week Yes Yes Sig: Take 10 mEq by mouth once daily. warfarin (COUMADIN) 1 mg tablet Past Week Yes Yes Sig: Maintenance regimen as of 03.06.2022: Take 5 mg (2 x 1 mg tabs and 1 x 3 mg tab) every Friday, . Take 3 mg (1 x 3 mg tab) every Friday, Friday, Friday, Friday, Friday. warfarin (COUMADIN) 3 mg tablet Past Week Yes Yes Sig: Maintenance regimen as of 03.06.2022: Take 5 mg (2 x 1 mg tabs and 1 x 3 mg tab) every Friday, . Take 3 mg (1 x 3 mg tab) every Friday, Friday, Friday, Friday, Friday. Facility-Administered Medications: None Betty Garcia 03/07/2022 Preceptor Addendum: This case has been reviewed and discussed with the clinical pharmacy technician. I agree with the medication history performed by the student. Teri Mina [facility] 5:20 PM March 07, 2022 [facility] 03-07-2022 Miscellaneous Notes Pt sister reports Pt is on the way to [facility] ER right now, son is taking her. Report called to [facility] ED by myself. Leslie Ling APRN.CNP I personally called patient's daughter Erin Gutiérrez to discuss results and recommendations. She verifies that patient's son is arriving at the home and plans to proceed to [place] ED with patient. Leslie Ling APRN.CNP Sister Kristin notified & verbalized understanding. Also given coumadin instructions. Miriam Ledesma Ma Please call patient/sister Kristin. Neurology let me know this morning that the results of the CTA suggest she may be having an acute stroke that the CTA was unable to potato picker. They recommend she go to the ED now for further assessment. She needs to go to the closest [facility] facility, which would likely be [place]. They have concern for a possible acute stroke vs possible seizure, but states that she needs to be evaluated now as well as additional testing. Leslie Ling APRN.CNP Left message with sister Kristin to contact office back regarding Gracie. Miriam Ledesma Ma INR is 1.9 Increasing the dose to: 5 mg (1 mg x 2 and 3 mg x 1) every Tue, Yasmin; 3 mg (3 mg x 1) all other days This is a slight increase from old order: 4 mg (1 mg x 1 and 3 mg x 1) every Tue, Yasmin; 3 mg (3 mg x 1) all other days Recheck INR in 1 week. Leslie Ling APRN.CNP PT sister Kristin informed, verbalized understanding. [facility] home health order faxed. Pt sister asking about INR result. Miriam Ledesma Ma I had written a letter during patient visit today for home health, but I don't believe it printed or was faxed. Please fax this letter to [facility]. Leslie Ling APRN.CNP Please let Gracie/her caregivers know that I received the results of her CT scan. There are no acute concerns for a stroke or mass. I am requesting neurology to assist me in interpretation of the entire report. Leslie Ling APRN.CNP [facility]. Leslie Ling APRN.CNP documented in this encounter [facility] 03-07-2022 Note HNO ID: [id number] Author: Colin Armstrong APRN.CNP Service: ? Author Type: Nurse Practitioner Type: Progress Notes Filed: 03/07/2022 8:46 AM Note Text: INPATIENT E-CONSULT PROVIDER TO PROVIDER NOTE SERVICE DATE: 03/07/2022 PATIENT LOCATION: outpatient SERVICE TIME: 08:23 REQUESTING PROVIDER: Leslie Ling APRN.CNP CONSULTING SERVICE: Neurology, [facility] Requesting provider requesting a [facility] E-Consult for my 86 year old female patient, Gracie Avila. ? My clinical question: ?Please assist to review CTA of brain and carotids from today 03/06/2022. ?Patient presents with sudden inability to utilize her right hand yesterday. ?Has been a bit confused, slight personality changes. ASSESSMENT Sudden onset of right hand weakness, confusion, and personality changes in context of past history of cerebrovascular infarcts as per CTA brain. Patient on Coumadin, possibility of hemorrhagic stroke cannot be excluded currently. RECOMMENDATIONS Patient should proceed to the emergency department at this time to have an MRI of the brain completed to assess for new strokes, CTA has excluded large vessel source of deficits but cannot exclude possible stroke. If MRi is negative for stroke patient should also be assessed in ED for post ictal seizures as a cause of these sudden onset of symptoms, which she may be prone to due to history of Chronic bilateral MCA territory infarcts right much greater than the left as per radiology report. This case was reviewed and discussed with [facility] Neurologist, Dr. Lawrence Chowdhury I spent 20 minutes reviewing records, addressing clinical questions/concerns, and transmitting my assessment and recommendations (by direct communication if indicated) to the requesting team. The patient or patient's b2b outside sales representative consented to e-consultation. SIGNATURE: Colin Armstrong APRN.CNP PATIENT NAME: Gracie Avila DATE: March 07, 2022 TIME: 8:23 AM [facility] 03-07-2022 History of Present illness Narrative INPATIENT E-CONSULT PROVIDER TO PROVIDER NOTE SERVICE DATE: 03/07/2022 PATIENT LOCATION: outpatient SERVICE TIME: 08:23 REQUESTING PROVIDER: Leslie Ling APRN.CNP CONSULTING SERVICE: Neurology, [facility] Requesting provider requesting a [facility] E-Consult for my 86 year old female patient, Gracie Avila. My clinical question: Please assist to review CTA of brain and carotids from today 03/06/2022. Patient presents with sudden inability to utilize her right hand yesterday. Has been a bit confused, slight personality changes. ASSESSMENT Sudden onset of right hand weakness, confusion, and personality changes in context of past history of cerebrovascular infarcts as per CTA brain. Patient on Coumadin, possibility of hemorrhagic stroke cannot be excluded currently. RECOMMENDATIONS Patient should proceed to the emergency department at this time to have an MRI of the brain completed to assess for new strokes, CTA has excluded large vessel source of deficits but cannot exclude possible stroke. If MRi is negative for stroke patient should also be assessed in ED for post ictal seizures as a cause of these sudden onset of symptoms, which she may be prone to due to history of Chronic bilateral MCA territory infarcts right much greater than the left as per radiology report. This case was reviewed and discussed with [facility] Neurologist, Dr. Lawrence Chowdhury I spent 20 minutes reviewing records, addressing clinical questions/concerns, and transmitting my assessment and recommendations (by direct communication if indicated) to the requesting team. The patient or patient's b2b outside sales representative consented to e-consultation. SIGNATURE: Colin Armstrong APRN.CNP PATIENT NAME: Gracie Avila DATE: March 07, 2022 TIME: 8:23 AM documented in this encounter [facility] 03-06-2022 Note HNO ID: [id number] Author: RT Donavon(R) Service: ? Author Type: Farm Implement Mechanic Type: Progress Notes Filed: 03/06/2022 2:06 PM Note Text: Radiology Service Progress Note DATE OF SERVICE: March 06, 2022 TIME: 2:06 PM PATIENT IDENTITY VERIFICATION COMPLETED USING TWO (2) STANDARD IDENTIFIERS: Name and Date of confirmed by patient verbally. FALL SCREENING: Has the patient had 2 falls in the last year or 1 fall with injury or currently using an Ambulatory Assistive Device (Walker, Cane, Wheelchair, Crutches, etc.)? No PATIENT GENDER DATA: Female. status: : No status: NO. PATIENT RELEVANT IMPLANT DATA REVIEWED: Yes ALLERGIES: Reviewed and unchanged CONTRAST ALLERGY: NO. EXAM: CT -CONTRAST INDUCED NEPHROPATHY RISK FACTORS: Patient age > 60 years CREATININE: Creatinine Date Value Ref Range Status 03/06/2022 0.67 0.58 - 0.96 mg/dL Final 10/11/2021 0.77 0.58 - 0.96 mg/dL Final 08/06/2021 0.71 0.58 - 0.96 mg/dL Final Estimated Glomerular Filtration Rate Date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 Follow up with Elmo Tovar DO. To ER if develops chest pain, shortness of breath Discussed risks, benefits, alternatives, and potential side effects of medications. Patient/Guardian expressed understanding and agreed with the plan. See patient instructions. Elmo Tovar DO [address] [place] [address] documented in this encounter [facility] 01-17-2022 Miscellaneous Notes Pharmacy verified in Epic Patient has been identified by name and date of : Yes Patient aware RX will be sent to pharmacy. No need to notify patient. Patient phones for refill(s): Pending Prescriptions Disp Refills CYANOCOBALAMIN (VIT B-12) 1,000 MCG TABLET 90 tablet 3 Sig: Take 1 tablet by mouth once daily. VENKATA: No Date of last office visit : 11/05/2021 Labs-10/11/21 Date of next office visit : 02/05/2022 Last 2 Encounter Wt Readings: Date: Wt: 11/05/2021 57.2 kg (126 lb) 10/10/2021 0 kg () Not applicable Please advise. Franci Patel Pss documented in this encounter [facility] 01-01-2022 History of Present illness Narrative Agree with below Elmo Tovar DO patient had inr completed at [facility] patients inr is 2.6 (patients inr range is 2.0-3.0) patient is currently taking 4mg Tues,Thurs and 3mg all other days patients last dose change was on 12/17/21 due to a low level of 1.6 (dose at that time was 3mg daily) patient has had no changes in medication except for coumadin and no missed doses and no change in diet Advised patient to continue on the same dose(s) and that they would only be contacted regarding dosage and follow up instructions after review with provider, if a change is needed. Written instructions given and patient verbalized understanding. Presently scheduled in 2 weeks (01/15/22) for follow up INR since this is the first normal reading since dose change documented in this encounter [facility] 12-19-2021 Miscellaneous Notes Pt notified, verbalized understanding and reports does not want to change rx. Miriam Ledesma Ma Please let Gracie know that I received her thyroid lab results. Her TSH level remains a bit low, but looks like this is chronic for her. Normally, I would recommend decreasing her medication just a bit, but if she feels well at this level, no need to change it. Please let me know if she would like to decrease her levothyroxine a bit. Leslie Ling APRN.COLLATERAL CLERK documented in this encounter [facility] 12-17-2021 History of Present illness Narrative Call received from caregiver Kristin. Reviewed new Coumadin dose to be 4 mg on Tues/Thurs and 3 mg the other 5 days. Patient will have INR checked as scheduled ion 12/31/2021. Afia Sands RN Message left to return call. Erin Perez LPN Please have her increase dose of Coumadin to 4 mg Tues and Thurs and 3 mg other 5 days of the week, recheck INR as scheduled\ Elmo Tovar DO patient had inr completed at [facility] patients inr 1.6 (patients inr range is 2.0-3.0) patient is currently taking 3mg daily patients last dose change was on 12/03/21 due to a low level of 1.8 (dose at that time was 2mg Mon and 3mg all other days) patient has had no changes in medication except for coumadin and no missed doses and no change in diet Advised patient that they would be contacted regarding medication dose and when to follow up after information is reviewed by provider. After provider review please contact the patient with information and schedule follow up appointment with coumadin clinic. please contact patients caregiver Kristin with dosing information FYI- patient has been scheduled for a 2 week follow up inr on 12/31/21 documented in this encounter [facility] 12-11-2021 Miscellaneous Notes Patient has been identified by name and date of : Yes Pending Prescriptions Disp Refills LEVOTHYROXINE 75 MCG TABLET 0 Sig: Take 1 tablet by mouth 6 days per week. Take 1/2 tablet by mouth 1 day per week. Take on empty stomach. For thyroid. VENKATA: No RX INSTRUCTIONS: 90 day supply Patient aware RX will be sent to pharmacy. No need to notify patient. Jeanine Ann Pss documented in this encounter [facility] 12-03-2021 History and physical note Pts sister called and is notified of providers results and instructions. She voices understanding. Patricia Scott RN documented in this encounter [facility] 12-03-2021 History of Present illness Narrative Patient notified, tracker updated. Increase dose to 3 mg every day. Recheck INR as scheduled Elmo Tovar DO patient had inr completed at [facility] patients inr is 1.8 (patients inr range is 2.0-3.0) patient is currently taking 2mg Mon and 3mg all other days patients last dose change was on 11/12/21 due to a low level of 1.8 (dose at that time was 2mg Mon,Wed, and 3mg all other days) patient has had no changes in medication except for coumadin and no missed doses and no change in diet Advised patient that they would be contacted regarding medication dose and when to follow up after information is reviewed by provider. After provider review please contact the patient with information and schedule follow up appointment with coumadin clinic. please contact patients uke driver Kristin with dosing information FYI- patient has been scheduled for a 2 week follow up inr on 12/17/21 documented in this encounter [facility] 11-29-2021 History of Present illness Narrative Last saw Dr. Tovar: 11/05/21 Subjective: Patient presents to clinic c/o painful toenails. They state that the nails are especially painful with shoe gear and pressure. Patient states that nails 1-5 b/l are painful. No other pedal complaints at this time. Patient states no change in medications or medical history since last visit. Objective: Patient presents to clinic ambulating in sneakers Vasc: DP and PT pulses are nonpalpable bilateral. CFT is less than 5 seconds bilateral. Skin temperature is warm to cool proximal to distal bilateral. There is + edema or varicosities noted. Neuro: Protective sensation is decreased to the foot and toes when tested with the 5.07 SWM bilateral. Vibratory sensation is decreased at the hallux IPJ bilateral. The hallux is downgoing bilateral. Derm: Nails 1-5 b/l are painful,discolored-yellow, thick, crumbly, dystrophic and with subungal debris. Skin is thin and pallor and hair growth is absent bilateral. There are no hyperkeratosis, ulcerations, scars, verruca or other lesions noted. Ortho: Muscle strength is 5/5 for all pedal groups tested. Ankle joint DF is decreased with the knee extended with no pain or crepitus noted. 1st MPJ ROM is decreased bilateral. Assessment: (B35.1) Onychomycosis (primary encounter diagnosis) (M79.675) Pain in toe of left foot (M79.674) Pain in toe of right foot Plan: Patient was seen and evaluated. Nails 1-5 bilateral were debrided in length and thickness. Patient is to RTC in 3-4 months. Pawel Foster DPM Patient presents with: Left Foot - Follow Up, Established Patient Right Foot - Established Patient, Follow Up documented in this encounter [facility] 2021 History of Present illness Narrative Kristin informed. Erin Perez LPN Increase dose to 2 mg on Mon and 3 mg all other days of the week, recheck INR as scheduled Elmo Tovar DO patient had inr completed at [facility] patients inr is 1.8 (patients inr range is 2.0-3.0) patient is currently taking 2mg Mon,Wed and 3mg all other days patients last dose change was on 08/27/21 due to a high level of 3.6 (dose at that time was 3mg daily) patient has had no changes in medication and no missed doses and no change in diet Advised patient that they would be contacted regarding medication dose and when to follow up after information is reviewed by provider. After provider review please contact the patient with information and schedule follow up appointment with coumadin clinic. please call uke driver Kristin with dosing information, ok to leave a detailed message if no answer FYI- patient has been scheduled for a 3 week follow up inr on 12/03/21 due to the cc is closed at that 2 week lisa and patient prefers not to have a blood draw documented in this encounter [facility] documented as of this encounter (statuses as of 2021) [facility]10-02-2019 History of Past illness Narrative* Problem Noted Date Resolved Date Vaginal itching 05/19/2019 01/29/2021 Acute right flank pain 10/15/2017 Injury of toenail of right foot 01/08/2017 01/29/2021 Acute bilateral low back pain with sciatica 03/201601/29/2021 SUMMARY 08/30/2012 01/29/2021 Overview: 76 yo F with the PMHX significant for Breast ca (sp surgery, chemo radiation, 12 years cancer free), hx of dyslipidemia, hypothyroidism, and HTN, now presenting sp post syncopal episode, transferred from OSH ED. 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 There is basal inferoposterior hypokinesis presence of intracardiac shunt/PFO,stress test showed 1. 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 Ceballos in EP within one month documented as of this encounter (statuses as of 11/29/2021) [facility] History of Past illness Narrative* Problem Noted Date Resolved Date Vaginal itching 05/19/2019 01/29/2021 Acute right flank pain 10/15/2017 Injury of toenail of right foot 01/08/2017 01/29/2021 Acute bilateral low back pain with sciatica 03/201601/29/2021 SUMMARY 08/30/2012 01/29/2021 Overview: 76 yo F with the PMHX significant for Breast ca (sp surgery, chemo radiation, 12 years cancer free), hx of dyslipidemia, hypothyroidism, and HTN, now presenting sp post syncopal episode, transferred from OSH ED. 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 There is basal inferoposterior hypokinesis presence of intracardiac shunt/PFO,stress test showed 1. 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 Ceballos in EP within one month documented as of this encounter (statuses as of 12/03/2021) [facility] History of Past illness Narrative* Problem Noted Date Resolved Date Vaginal itching 05/19/2019 01/29/2021 Acute right flank pain 10/15/2017 1 Injury of toenail of right foot 01/08/2017 01/29/2021 Acute bilateral low back pain with sciatica 06/0 03/201601/29/2021 SUMMARY 08/30/2012 01/29/2021 Overview: 76 yo F with the PMHX significant for Breast ca (sp surgery, chemo radiation, 12 years cancer free), hx of dyslipidemia, hypothyroidism, and HTN, now presenting sp post syncopal episode, transferred from OSH ED. 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 There is basal inferoposterior hypokinesis presence of intracardiac shunt/PFO,stress test showed 1. 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 Ceballos in EP within one month documented as of this encounter (statuses as of 12/12/2021) [facility] History of Past illness Narrative* Problem Noted Date Resolved Date Vaginal itching 05/19/2019 01/29/2021 Acute right flank pain 10/15/2017 1 Injury of toenail of right foot 01/08/2017 01/29/2021 Acute bilateral low back pain with sciatica /0 03/201601/29/2021 SUMMARY 08/30/2012 01/29/2021 Overview: 76 yo F with the PMHX significant for Breast ca (sp surgery, chemo radiation, 12 years cancer free), hx of dyslipidemia, hypothyroidism, and HTN, now presenting sp post syncopal episode, transferred from OSH ED. 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 There is basal inferoposterior hypokinesis presence of intracardiac shunt/PFO,stress test showed 1. 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 Ceballos in EP within one month documented as of this encounter (statuses as of 12/17/2021) [facility] History of Past illness Narrative* Problem Noted Date Resolved Date Vaginal itching 05/19/2019 01/29/2021 Acute right flank pain 10/15/2017 1 Injury of toenail of right foot 01/08/2017 01/29/2021 Acute bilateral low back pain with sciatica 03/201601/29/2021 SUMMARY 08/30/2012 01/29/2021 Overview: 76 yo F with the PMHX significant for Breast ca (sp surgery, chemo radiation, 12 years cancer free), hx of dyslipidemia, hypothyroidism, and HTN, now presenting sp post syncopal episode, transferred from OSH ED. 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 There is basal inferoposterior hypokinesis presence of intracardiac shunt/PFO,stress test showed 1. 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 Ceballos in EP within one month documented as of this encounter (statuses as of 12/19/2021) [facility] History of Past illness Narrative* Problem Noted Date Resolved Date Vaginal itching 05/19/2019 01/29/2021 Acute right flank pain 10/15/2017 1 Injury of toenail of right foot 01/08/2017 01/29/2021 Acute bilateral low back pain with sciatica /0 03/201601/29/2021 SUMMARY 08/30/2012 01/29/2021 Overview: 76 yo F with the PMHX significant for Breast ca (sp surgery, chemo radiation, 12 years cancer free), hx of dyslipidemia, hypothyroidism, and HTN, now presenting sp post syncopal episode, transferred from OSH ED. 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 There is basal inferoposterior hypokinesis presence of intracardiac shunt/PFO,stress test showed 1. 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 Ceballos in EP within one month documented as of this encounter (statuses as of 01/01/2022) [facility] History of Past illness Narrative* Problem Noted Date Resolved Date Vaginal itching 05/19/2019 01/29/2021 Acute right flank pain 10/15/2017 1 Injury of toenail of right foot 01/08/2017 01/29/2021 Acute bilateral low back pain with sciatica 06/0 03/201601/29/2021 SUMMARY 08/30/2012 01/29/2021 Overview: 76 yo F with the PMHX significant for Breast ca (sp surgery, chemo radiation, 12 years cancer free), hx of dyslipidemia, hypothyroidism, and HTN, now presenting sp post syncopal episode, transferred from OSH ED. 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 There is basal inferoposterior hypokinesis presence of intracardiac shunt/PFO,stress test showed 1. 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 Ceballos in EP within one month documented as of this encounter (statuses as of 01/17/2022) [facility] History of Past illness Narrative* Problem Noted Date Resolved Date Vaginal itching 05/19/2019 01/29/2021 Acute right flank pain 10/15/2017 1 Injury of toenail of right foot 01/08/2017 01/29/2021 Acute bilateral low back pain with sciatica /0 03/201601/29/2021 SUMMARY 08/30/2012 01/29/2021 Overview: 76 yo F with the PMHX significant for Breast ca (sp surgery, chemo radiation, 12 years cancer free), hx of dyslipidemia, hypothyroidism, and HTN, now presenting sp post syncopal episode, transferred from OSH ED. 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 There is basal inferoposterior hypokinesis presence of intracardiac shunt/PFO,stress test showed 1. 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 Ceballos in EP within one month documented as of this encounter (statuses as of 02/06/2022) [facility] History of Past illness Narrative* Problem Noted Date Resolved Date Vaginal itching 05/19/2019 01/29/2021 Acute right flank pain 10/15/2017 1 Injury of toenail of right foot 01/08/2017 01/29/2021 Acute bilateral low back pain with sciatica /0 03/201601/29/2021 SUMMARY 08/30/2012 01/29/2021 Overview: 76 yo F with the PMHX significant for Breast ca (sp surgery, chemo radiation, 12 years cancer free), hx of dyslipidemia, hypothyroidism, and HTN, now presenting sp post syncopal episode, transferred from OSH ED. 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 There is basal inferoposterior hypokinesis presence of intracardiac shunt/PFO,stress test showed 1. 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 Ceballos in EP within one month documented as of this encounter (statuses as of 02/07/2022) [facility] History of Past illness Narrative* Problem Noted Date Resolved Date Vaginal itching 05/19/2019 01/29/2021 Acute right flank pain 10/15/2017 Injury of toenail of right foot 01/08/2017 01/29/2021 Acute bilateral low back pain with sciatica 03/201601/29/2021 SUMMARY 08/30/2012 01/29/2021 Overview: 76 yo F with the PMHX significant for Breast ca (sp surgery, chemo radiation, 12 years cancer free), hx of dyslipidemia, hypothyroidism, and HTN, now presenting sp post syncopal episode, transferred from OSH ED. 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 There is basal inferoposterior hypokinesis presence of intracardiac shunt/PFO,stress test showed 1. 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 Ceballos in EP within one month documented as of this encounter (statuses as of 02/14/2022) [facility] History of Past illness Narrative* Problem Noted Date Resolved Date Vaginal itching 05/19/2019 01/29/2021 Acute right flank pain 10/15/2017 1 Injury of toenail of right foot 01/08/2017 01/29/2021 Acute bilateral low back pain with sciatica 03/201601/29/2021 SUMMARY 08/30/2012 01/29/2021 Overview: 76 yo F with the PMHX significant for Breast ca (sp surgery, chemo radiation, 12 years cancer free), hx of dyslipidemia, hypothyroidism, and HTN, now presenting sp post syncopal episode, transferred from OSH ED. 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 There is basal inferoposterior hypokinesis presence of intracardiac shunt/PFO,stress test showed 1. 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 Ceballos in EP within one month documented as of this encounter (statuses as of 03/06/2022) [facility] History of Past illness Narrative* Problem Noted Date Resolved Date Vaginal itching 05/19/2019 01/29/2021 Acute right flank pain 10/15/2017 1 Injury of toenail of right foot 01/08/2017 01/29/2021 Acute bilateral low back pain with sciatica 0 03/201601/29/2021 SUMMARY 08/30/2012 01/29/2021 Overview: 76 yo F with the PMHX significant for Breast ca (sp surgery, chemo radiation, 12 years cancer free), hx of dyslipidemia, hypothyroidism, and HTN, now presenting sp post syncopal episode, transferred from OSH ED. 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 There is basal inferoposterior hypokinesis presence of intracardiac shunt/PFO,stress test showed 1. 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 Ceballos in EP within one month documented as of this encounter (statuses as of 03/07/2022) [facility]2019 History of Past illness Narrative* Problem Noted Date Resolved Date Vaginal itching 05/19/2019 01/29/2021 Acute right flank pain 10/15/2017 Injury of toenail of right foot 01/08/2017 01/29/2021 Acute bilateral low back pain with sciatica 03/201601/29/2021 SUMMARY 08/30/2012 01/29/2021 Overview: 76 yo F with the PMHX significant for Breast ca (sp surgery, chemo radiation, 12 years cancer free), hx of dyslipidemia, hypothyroidism, and HTN, now presenting sp post syncopal episode, transferred from OSH ED. 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 There is basal inferoposterior hypokinesis presence of intracardiac shunt/PFO,stress test showed 1. 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 Ceballos in EP within one month documented as of this encounter (statuses as of 03/07/2022) [facility] History of Past illness Narrative* Problem Noted Date Resolved Date Vaginal itching 05/19/2019 01/29/2021 Acute right flank pain 10/15/2017 1 Injury of toenail of right foot 01/08/2017 01/29/2021 Acute bilateral low back pain with sciatica /0 03/201601/29/2021 SUMMARY 08/30/2012 01/29/2021 Overview: 76 yo F with the PMHX significant for Breast ca (sp surgery, chemo radiation, 12 years cancer free), hx of dyslipidemia, hypothyroidism, and HTN, now presenting sp post syncopal episode, transferred from OSH ED. 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 There is basal inferoposterior hypokinesis presence of intracardiac shunt/PFO,stress test showed 1. 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 Ceballos in EP within one month documented as of this encounter (statuses as of 03/07/2022) [facility] History of Past illness Narrative* Problem Noted Date Resolved Date Vaginal itching 05/19/2019 01/29/2021 Acute right flank pain 10/15/2017 1 Injury of toenail of right foot 01/08/2017 01/29/2021 Acute bilateral low back pain with sciatica /0 03/201601/29/2021 SUMMARY 08/30/2012 01/29/2021 Overview: 76 yo F with the PMHX significant for Breast ca (sp surgery, chemo radiation, 12 years cancer free), hx of dyslipidemia, hypothyroidism, and HTN, now presenting sp post syncopal episode, transferred from OSH ED. 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 There is basal inferoposterior hypokinesis presence of intracardiac shunt/PFO,stress test showed 1. 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 Ceballos in EP within one month documented as of this encounter (statuses as of 03/13/2022) [facility] History of Past illness Narrative* Problem Noted Date Resolved Date Vaginal itching 05/19/2019 01/29/2021 Acute right flank pain 10/15/2017 1 Injury of toenail of right foot 01/08/2017 01/29/2021 Acute bilateral low back pain with sciatica 03/201601/29/2021 SUMMARY 08/30/2012 01/29/2021 Overview: 76 yo F with the PMHX significant for Breast ca (sp surgery, chemo radiation, 12 years cancer free), hx of dyslipidemia, hypothyroidism, and HTN, now presenting sp post syncopal episode, transferred from OSH ED. 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 There is basal inferoposterior hypokinesis presence of intracardiac shunt/PFO,stress test showed 1. 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 Ceballos in EP within one month documented as of this encounter (statuses as of 03/13/2022) [facility] History of Past illness Narrative* Problem Noted Date Resolved Date Vaginal itching 05/19/2019 01/29/2021 Acute right flank pain 10/15/2017 1 Injury of toenail of right foot 01/08/2017 01/29/2021 Acute bilateral low back pain with sciatica /0 03/201601/29/2021 SUMMARY 08/30/2012 01/29/2021 Overview: 76 yo F with the PMHX significant for Breast ca (sp surgery, chemo radiation, 12 years cancer free), hx of dyslipidemia, hypothyroidism, and HTN, now presenting sp post syncopal episode, transferred from OSH ED. 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 There is basal inferoposterior hypokinesis presence of intracardiac shunt/PFO,stress test showed 1. 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 Ceballos in EP within one month documented as of this encounter (statuses as of 03/14/2022) [facility] History of Past illness Narrative* Problem Noted Date Resolved Date Vaginal itching 05/19/2019 01/29/2021 Acute right flank pain 10/15/2017 Injury of toenail of right foot 01/08/2017 01/29/2021 Acute bilateral low back pain with sciatica 03/201601/29/2021 SUMMARY 08/30/2012 01/29/2021 Overview: 76 yo F with the PMHX significant for Breast ca (sp surgery, chemo radiation, 12 years cancer free), hx of dyslipidemia, hypothyroidism, and HTN, now presenting sp post syncopal episode, transferred from OSH ED. 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 There is basal inferoposterior hypokinesis presence of intracardiac shunt/PFO,stress test showed 1. 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 Ceballos in EP within one month documented as of this encounter (statuses as of 03/28/2022) [facility] History of Past illness Narrative* Problem Noted Date Resolved Date Vaginal itching 05/19/2019 01/29/2021 Acute right flank pain 10/15/2017 1 Injury of toenail of right foot 01/08/2017 01/29/2021 Acute bilateral low back pain with sciatica /0 03/201601/29/2021 SUMMARY 08/30/2012 01/29/2021 Overview: 76 yo F with the PMHX significant for Breast ca (sp surgery, chemo radiation, 12 years cancer free), hx of dyslipidemia, hypothyroidism, and HTN, now presenting sp post syncopal episode, transferred from OSH ED. 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 There is basal inferoposterior hypokinesis presence of intracardiac shunt/PFO,stress test showed 1. 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 Ceballos in EP within one month documented as of this encounter (statuses as of 04/12/2022) [facility] History of Past illness Narrative* Problem Noted Date Resolved Date Vaginal itching 05/19/2019 01/29/2021 Acute right flank pain 10/15/2017 1 Injury of toenail of right foot 01/08/2017 01/29/2021 Acute bilateral low back pain with sciatica /0 03/201601/29/2021 SUMMARY 08/30/2012 01/29/2021 Overview: 76 yo F with the PMHX significant for Breast ca (sp surgery, chemo radiation, 12 years cancer free), hx of dyslipidemia, hypothyroidism, and HTN, now presenting sp post syncopal episode, transferred from OSH ED. 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 There is basal inferoposterior hypokinesis presence of intracardiac shunt/PFO,stress test showed 1. 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 Ceballos in EP within one month documented as of this encounter (statuses as of 05/02/2022) [facility] History of Past illness Narrative* Problem Noted Date Resolved Date Vaginal itching 05/19/2019 01/29/2021 Acute right flank pain 10/15/2017 Injury of toenail of right foot 01/08/2017 01/29/2021 Acute bilateral low back pain with sciatica 03/201601/29/2021 SUMMARY 08/30/2012 01/29/2021 Overview: 76 yo F with the PMHX significant for Breast ca (sp surgery, chemo radiation, 12 years cancer free), hx of dyslipidemia, hypothyroidism, and HTN, now presenting sp post syncopal episode, transferred from OSH ED. 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 There is basal inferoposterior hypokinesis presence of intracardiac shunt/PFO,stress test showed 1. 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 Ceballos in EP within one month documented as of this encounter (statuses as of 07/10/2022) [facility] History of Past illness Narrative* Problem Noted Date Resolved Date Vaginal itching 05/19/2019 01/29/2021 Acute right flank pain 10/15/2017 1 Injury of toenail of right foot 01/08/2017 01/29/2021 Acute bilateral low back pain with sciatica /0 03/201601/29/2021 SUMMARY 08/30/2012 01/29/2021 Overview: 76 yo F with the PMHX significant for Breast ca (sp surgery, chemo radiation, 12 years cancer free), hx of dyslipidemia, hypothyroidism, and HTN, now presenting sp post syncopal episode, transferred from OSH ED. 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 There is basal inferoposterior hypokinesis presence of intracardiac shunt/PFO,stress test showed 1. 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 Ceballos in EP within one month documented as of this encounter (statuses as of 08/30/2022) [facility] History of Past illness Narrative* Problem Noted Date Resolved Date Vaginal itching 05/19/2019 01/29/2021 Acute right flank pain 10/15/2017 1 Injury of toenail of right foot 01/08/2017 01/29/2021 Acute bilateral low back pain with sciatica /0 03/201601/29/2021 SUMMARY 08/30/2012 01/29/2021 Overview: 76 yo F with the PMHX significant for Breast ca (sp surgery, chemo radiation, 12 years cancer free), hx of dyslipidemia, hypothyroidism, and HTN, now presenting sp post syncopal episode, transferred from OSH ED. 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 There is basal inferoposterior hypokinesis presence of intracardiac shunt/PFO,stress test showed 1. 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 Ceballos in EP within one month documented as of this encounter (statuses as of 11/05/2022) [facility] History of Past illness Narrative* Problem Noted Date Resolved Date Vaginal itching 05/19/2019 01/29/2021 Acute right flank pain 10/15/2017 1 Injury of toenail of right foot 01/08/2017 01/29/2021 Acute bilateral low back pain with sciatica 03/201601/29/2021 SUMMARY 08/30/2012 01/29/2021 Overview: 76 yo F with the PMHX significant for Breast ca (sp surgery, chemo radiation, 12 years cancer free), hx of dyslipidemia, hypothyroidism, and HTN, now presenting sp post syncopal episode, transferred from OSH ED. 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 There is basal inferoposterior hypokinesis presence of intracardiac shunt/PFO,stress test showed 1. 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 Ceballos in EP within one month documented as of this encounter (statuses as of 01/22/2023) [facility] History of Past illness Narrative* Problem Noted Date Resolved Date Vaginal itching 05/19/2019 01/29/2021 Acute right flank pain 10/15/2017 1 Injury of toenail of right foot 01/08/2017 01/29/2021 Acute bilateral low back pain with sciatica 03/201601/29/2021 SUMMARY 08/30/2012 01/29/2021 Overview: 76 yo F with the PMHX significant for Breast ca (sp surgery, chemo radiation, 12 years cancer free), hx of dyslipidemia, hypothyroidism, and HTN, now presenting sp post syncopal episode, transferred from OSH ED. 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 There is basal inferoposterior hypokinesis presence of intracardiac shunt/PFO,stress test showed 1. 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 Ceballos in EP within one month documented as of this encounter (statuses as of 02/14/2023) [facility] Diagnosis History of [place] (myocardial infarction) Old myocardial infarction [facility]* Diagnosis Onychomycosis- Primary Dermatophytosis of nail Pain in toe of left foot Pain in limb Pain in toe of right foot Pain in limb [facility]* Diagnosis History of [place] (myocardial infarction) [facility] Hypothyroidism, unspecified type [facility]* Diagnosis History of [place] (myocardial infarction) Old myocardial infarction [facility]* Diagnosis Hypothyroidism, unspecified type- Primary PND (post-nasal drip) Postnasal drip Essential hypertension Unspecified essential hypertension Hypokalemia Hypopotassemia Anemia, unspecified type Dyslipidemia Other and unspecified hyperlipidemia Impaired fasting glucose Impaired fasting glucose Vitamin B12 deficiency Other B-complex deficiencies Gait disorder Abnormality of gait 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 [facility]* Diagnosis Weakness of right hand- Primary Muscle weakness (generalized) Acute confusion Delirium due to conditions classified elsewhere Generalized weakness Other malaise and fatigue Expressive aphasia Aphasia Transient cerebral ischemia, unspecified type Bacterial pneumonia Bacterial pneumonia, unspecified correction current use of anticoagulant therapy Long-term (current) use of anticoagulants [facility]* Diagnosis Generalized weakness Other malaise and fatigue Acute confusion Delirium due to conditions classified elsewhere Transient cerebral ischemia, unspecified type Expressive aphasia Aphasia Weakness of right hand Muscle weakness (generalized) [facility] Diagnosis Right arm weakness- Primary Other musculoskeletal symptoms referable to limbs Confusion Unspecified psychosis [facility] Diagnosis Weakness of right hand- Primary Muscle weakness (generalized) Acute confusion Delirium due to conditions classified elsewhere Generalized weakness Other malaise and fatigue [facility] Diagnosis Weakness of right hand- Primary Muscle weakness (generalized) Generalized weakness Other malaise and fatigue Transient cerebral ischemia, unspecified type [facility] Diagnosis Vitamin B12 deficiency- Primary Other B-complex deficiencies documented in this encounter [facility] Summary Purpose Family History No Family History Records FoundNo Family History Records FoundNo Family History Records FoundNo Family History Records FoundNo Family History Records Found Advance Directives No Advanced Directives Records FoundDocuments on File Type Date Recorded Patient Laboratory Apparatus Glass Grinder Expl anation Advance Directive(s) 04/30/2013 11:38 AM Latest Code Status on File Code Status Date Activated Date Inactivated Comments DNR-CC 03/07/2022 6:57 PM 03/10/2022 5:31 PM DNR Order Discussed With: Surrogate Decision Aryan er Surrogate Decision Maker Name: discussed with Rachel vásquez Documents on File Type Date Recorded Patient 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 Apparatus Glass Grinder Expl anation Advance Directive(s) 04/30/2013 11:38 AM Documents on File Type Date Recorded Patient Laboratory Apparatus Glass Grinder Expl anation Advance Directive(s) 03/07/2022 1:23 PM Advance Directive(s) 04/30/2013 11:38 AM Reason for Referral Specialty Diagnoses / Procedures Referred By Haseeb marquez Referred To Contact CT IMAGING Diagnoses Generalized weakness Acute confusion Transient cerebral ischemia, unspecified type Expressive aphasia Weakness of right hand Procedures CTA NECK W IVCON CT ANGIOGRAPHY NECK W/CONTRAST/NONCONTRAST Leslie Ling APRN.COLLATERAL CLERK [address] [place] [address] Ct Imaging Referral ID Status Reason Start Date Expiration Date V isits Requested Visits Authorized [id number] Closed Auto-Generate d Referral 03/06/2022 04/05/2023 1 1 Specialty Diagnoses / Procedures Referred By Haseeb marquez Referred To Contact CT IMAGING Diagnoses Generalized weakness Acute confusion Transient cerebral ischemia, unspecified type Expressive aphasia Weakness of right hand Procedures CTA HEAD WO/W IVCON CT ANGIOGRAPHY HEAD W/CONTRAST/NONCONTRAST Leslie Ling, DOT NET ARCHITECT.COLLATERAL CLERK [address] [place] [address] Ct Imaging Referral ID Status Reason Start Date Expiration Date V isits Requested Visits Authorized [id number] Closed Auto-Generate d Referral 03/06/2022 04/05/2023 1 1 Additional Source Comments INFORMATION SOURCE (unrecogn ized section and content) DATE CREATED AUTHOR AUTHOR'S ORGANIZ ATION 02/05/2018 [facility] DATE CREATED AUTHOR AUTHOR'S ORGANIZ ATION 07/11/2020 [facility] DATE CREATED AUTHOR AUTHOR'S ORGANIZ ATION 06/12/2022 [facility] DATE CREATED AUTHOR AUTHOR'S ORGANIZ ATION 02/14/2023 [facility] Source Comments (unrecognize d section and content) In the event this informatio n is protected by the Federal Confidentiality of Alcohol and Drug Abuse Patient Records regulations: The Federal rules restrict any use of the information to criminally investigate or prosecute any alcohol or drug abuse patient.[facility] event this information is protected by the Federal Confidentiality of Alcohol and Drug Abuse Patient Records regulations: The Federal rules restrict any use of the information to criminally investigate or prosecute any alcohol or drug abuse patient.[facility] the event this information is protected by the Federal Confidentiality of Alcohol and Drug Abuse Patient Records regulations: The Federal rules restrict any use of the information to criminally investigate or prosecute any alcohol or drug abuse patient.[facility] the event this information is protected by the Federal Confidentiality of Alcohol and Drug Abuse Patient Records regulations: The Federal rules restrict any use of the information to criminally investigate or prosecute any alcohol or drug abuse patient.[facility] the event this information is protected by the Federal Confidentiality of Alcohol and Drug Abuse Patient Records regulations: The Federal rules restrict any use of the information to criminally investigate or prosecute any alcohol or drug abuse patient.[facility] the event this information is protected by the Federal Confidentiality of Alcohol and Drug Abuse Patient Records regulations: The Federal rules restrict any use of the information to criminally investigate or prosecute any alcohol or drug abuse patient.[facility] the event this information is protected by the Federal Confidentiality of Alcohol and Drug Abuse Patient Records regulations: The Federal rules restrict any use of the information to criminally investigate or prosecute any alcohol or drug abuse patient.[facility] the event this information is protected by the Federal Confidentiality of Alcohol and Drug Abuse Patient Records regulations: The Federal rules restrict any use of the information to criminally investigate or prosecute any alcohol or drug abuse patient.[facility] event this information is protected by the Federal Confidentiality of Alcohol and Drug Abuse Patient Records regulations: The Federal rules restrict any use of the information to criminally investigate or prosecute any alcohol or drug abuse patient.[facility] HealthIn the event this information is protected by the Federal Confidentiality of Alcohol and Drug Abuse Patient Records regulations: The Federal rules restrict any use of the information to criminally investigate or prosecute any alcohol or drug abuse patient.[facility] HealthIn the event this information is protected by the Federal Confidentiality of Alcohol and Drug Abuse Patient Records regulations: The Federal rules restrict any use of the information to criminally investigate or prosecute any alcohol or drug abuse patient.[facility] HealthIn the event this information is protected by the Federal Confidentiality of Alcohol and Drug Abuse Patient Records regulations: The Federal rules restrict any use of the information to criminally investigate or prosecute any alcohol or drug abuse patient.[facility] HealthIn the event this information is protected by the Federal Confidentiality of Alcohol and Drug Abuse Patient Records regulations: The Federal rules restrict any use of the information to criminally investigate or prosecute any alcohol or drug abuse patient.[facility] HealthIn the event this information is protected by the Federal Confidentiality of Alcohol and Drug Abuse Patient Records regulations: The Federal rules restrict any use of the information to criminally investigate or prosecute any alcohol or drug abuse patient.[facility] HealthIn the event this information is protected by the Federal Confidentiality of Alcohol and Drug Abuse Patient Records regulations: The Federal rules restrict any use of the information to criminally investigate or prosecute any alcohol or drug abuse patient.[facility] HealthIn the event this information is protected by the Federal Confidentiality of Alcohol and Drug Abuse Patient Records regulations: The Federal rules restrict any use of the information to criminally investigate or prosecute any alcohol or drug abuse patient.[facility] HealthIn the event this information is protected by the Federal Confidentiality of Alcohol and Drug Abuse Patient Records regulations: The Federal rules restrict any use of the information to criminally investigate or prosecute any alcohol or drug abuse patient.[facility] HealthIn the event this information is protected by the Federal Confidentiality of Alcohol and Drug Abuse Patient Records regulations: The Federal rules restrict any use of the information to criminally investigate or prosecute any alcohol or drug abuse patient.[facility] HealthIn the event this information is protected by the Federal Confidentiality of Alcohol and Drug Abuse Patient Records regulations: The Federal rules restrict any use of the information to criminally investigate or prosecute any alcohol or drug abuse patient.[facility] HealthIn the event this information is protected by the Federal Confidentiality of Alcohol and Drug Abuse Patient Records regulations: The Federal rules restrict any use of the information to criminally investigate or prosecute any alcohol or drug abuse patient.[facility] HealthIn the event this information is protected by the Federal Confidentiality of Alcohol and Drug Abuse Patient Records regulations: The Federal rules restrict any use of the information to criminally investigate or prosecute any alcohol or drug abuse patient.[facility] HealthIn the event this information is protected by the Federal Confidentiality of Alcohol and Drug Abuse Patient Records regulations: The Federal rules restrict any use of the information to criminally investigate or prosecute any alcohol or drug abuse patient.[facility] HealthIn the event this information is protected by the Federal Confidentiality of Alcohol and Drug Abuse Patient Records regulations: The Federal rules restrict any use of the information to criminally investigate or prosecute any alcohol or drug abuse patient.[facility] HealthIn the event this information is protected by the Federal Confidentiality of Alcohol and Drug Abuse Patient Records regulations: The Federal rules restrict any use of the information to criminally investigate or prosecute any alcohol or drug abuse patient.[facility] HealthIn the event this information is protected by the Federal Confidentiality of Alcohol and Drug Abuse Patient Records regulations: The Federal rules restrict any use of the information to criminally investigate or prosecute any alcohol or drug abuse patient.[facility] HealthIn the event this information is protected by the Federal Confidentiality of Alcohol and Drug Abuse Patient Records regulations: The Federal rules restrict any use of the information to criminally investigate or prosecute any alcohol or drug abuse patient.[facility] Reason for Visit (unrecogniz ed section and content) Reason Comments Follow Up Established Patient Reason Onset Date Comments Refill Request 12/11/2021 Reason Comments Results Reason Onset Date Comments Refill Request 01/17/2022 Reason Comments Follow Up 3 months Reason Comments Medication Question Reason Comments Sore Throat Reason Comments Hospital Follow Up pneumonia x 2 weeks ago Reason Comments Radiology CT Specialty Diagnoses / Procedures Referred By Haseeb t Referred To Contact CT IMAGING Diagnoses Generalized weakness Acute confusion Transient cerebral ischemia, unspecified type Expressive aphasia Weakness of right hand Procedures CTA NECK W IVCON CT ANGIOGRAPHY NECK W/CONTRAST/NONCONTRAST Leslie Ling, LUCA.COLLATERAL CLERK [address] [place] [address] Ct Imaging Referral ID Status Reason Start Date Expiration Date V isits Requested Visits Authorized [id number] Closed Auto-Generate d Referral 03/06/2022 04/05/2023 1 1 Reason Comments Erroneous encounter-disregard Reason Comments Patient Update Patient Question Orders Reason Comments [facility] HH referral update Reason Comments Orders Reason Comments Patient Update Patient Question Reason Onset Date Comments cdm 08/28/2022 enrollment Reason Onset Date Comments Refill Request 11/05/2022 Reason Onset Date Comments Population Health Navigation Outreach 01/22/2023 ACO HCC Reason Onset Date Comments Population Health Navigation Outreach 02/13/2023 [facility] Care Teams (unrecognized sec tion and content) 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 Relationship Specialty Start Date End Date Elmo Tovar DO [address] [place] [address] PCP - General Family Practice 09/05/12 Shawanda, Abhijeet S [address] [place] [address] Physician Cardiology 12/11/18 Matthew Ceballos MD Primary Staff Physician Cardiology 11/03/18 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 Relationship Specialty Start Date End Date Elmo Tovar, DO [address] [facility] [place] [address] PCP - General Family Practice 09/05/12 Shawanda, Abhijeet S [address] [place] [address] Physician Cardiology 12/11/18 Matthew Ceballos MD Primary Staff Physician Cardiology 11/03/18 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 Relationship Specialty Start Date End Date Elmo Tovar, DO [address] [place] [address] PCP - General Family Practice 09/05/12 Shawanda, Abhijeet S [address] [place] [address] Physician Cardiology 12/11/18 Matthew Ceballos MD Primary Staff Physician Cardiology 11/03/18 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 Relationship Specialty Start Date End Date Elmo Tovar, DO [address] [place] [address] PCP - General Family Practice 09/05/12 Shawanda, Sikes S [address] [place] [address] Physician Cardiology 12/11/18 Matthew Ceballos MD Primary Staff Physician Cardiology 11/03/18 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 Relationship Specialty Start Date End Date Elmo Tovar, DO [address] [place] [address] PCP - General Family Practice 09/05/12 Shawanda, Sikes S [address] [place] [address] Physician Cardiology 12/11/18 Matthew Ceballos MD Primary Staff Physician Cardiology 11/03/18 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 Relationship Specialty Start Date End Date Elmo Tovar, DO [address] [place] [address] PCP - General Family Practice 09/05/12 Shawanda, Abhijeet S [address] [place] [address] Physician Cardiology 12/11/18 Matthew Ceballos MD Primary Staff Physician Cardiology 11/03/18 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 Relationship Specialty Start Date End Date Elmo Tovar, DO [address] [place] [address] PCP - General Family Practice 09/05/12 Shawanda, Abhijeet S [address] [place] [address] Physician Cardiology 12/11/18 Matthew Ceballos MD Primary Staff Physician Cardiology 11/03/18 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 Relationship Specialty Start Date End Date Elmo Tovar, DO [address] [place] [address] PCP - General Family Practice 09/05/12 Shawanda, Abhijeet S [address] [place] [address] Physician Cardiology 12/11/18 Matthew Ceballos MD Primary Staff Physician Cardiology 11/03/18 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 Relationship Specialty Start Date End Date Elmo Tovar, DO [address] [place] [address] PCP - General Family Practice 09/05/12 Shawanda, Abhijeet S [address] [place] [address] Physician Cardiology 12/11/18 Matthew Ceballos MD Primary Staff Physician Cardiology 11/03/18 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 Relationship Specialty Start Date End Date Elmo Tovar, DO [address] [place] [place] [address] PCP - General Family Practice 09/05/12 Shawanda, Sikes S [address] [place] [address] Physician Cardiology 12/11/18 Matthew Ceballos MD Primary Staff Physician Cardiology 11/03/18 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 Relationship Specialty Start Date End Date Elmo Tovar, DO [address] [place] [address] PCP - General Family Practice 09/05/12 Shawanda, Abhijeet S [address] [place] [address] Physician Cardiology 12/11/18 Matthew Ceballos MD Primary Staff Physician Cardiology 11/03/18 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 Relationship Specialty Start Date End Date Elmo Tovar, DO [address] [place] [address] PCP - General Family Practice 09/05/12 Shawanda, Abhijeet S [address] [place] [address] Physician Cardiology 12/11/18 Matthew Ceballos MD Primary Staff Physician Cardiology 11/03/18 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 Relationship Specialty Start Date End Date Elmo Tovar, DO [address] [place] [address] PCP - General Family Practice 09/05/12 Shawanda, Sikes S [address] [place] [address] Physician Cardiology 12/11/18 Matthew Ceballos MD Primary Staff Physician Cardiology 11/03/18 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 Relationship Specialty Start Date End Date Elmo Tovar, DO [address] [place] [place] [address] PCP - General Family Medicine 09/05/12 Shawanda, Abhijeet S [address] [place] [address] Physician Cardiology 12/11/18 Matthew Ceballos MD [address] [place] [address] Primary Staff Physician Cardiology 11/03/18 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 Relationship Specialty Start Date End Date Elmo Tovar, DO [address] [place] [place] [address] PCP - General Family Medicine 09/05/12 Wilbur Mayberryril S [address] [place] [address] Physician Cardiology 12/11/18 Matthew Ceballos MD [address] [place] [address] Primary Staff Physician Cardiology 11/03/18 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 This clinical summary was aggregated from multiple sources. Caution should be exercised in using it in the provision of clinical care. This summary normalizes information from multiple sources, and as a consequence, information in this document may materially change the coding, format and clinical context of patient data. In addition, data may be omitted in some cases. CLINICAL DECISIONS SHOULD BE BASED ON THE PRIMARY CLINICAL RECORDS. [facility]. provides no warranty or guarantee of the accuracy or completeness of information in this document.
[2023-09-18 20:10] LABS: Troponin-I HS 193 pg/mL (3.0-54.0)
--- OUTSIDE RECORDS SUMMARY | 2023-09-18 21:18 | XMS RPT_ITS | CCD ---
Author Name Unknown Address [id number] [place] [address] Organization [facility] Care Team Providers Care French Comber Name Role Phone Aline Morales Unavailable Unavailable Earl Oseguera MD Unavailable ROGELIO, SHAN E Unavailable Unavailable ROGELIO, SHAN E Unavailable Unavailable ROGELIO, SHAN Unavailable Unavailable ROGELIO, SHAN Unavailable Unavailable ELMO TOVAR Unavailable Unavailable ROGELIO, SHAN Unavailable Unavailable ROGELIO, SHAN Unavailable Unavailable ELMO TOVAR Unavailable Unavailable SELF, SELF Referring Unavailable Elmo Tovar DO Primary Care Provider [place], [place] S Unavailable Matthwe Ceballos MD Unavailable Elmo Tovar DO Primary Care Provider [place], [place] S Unavailable Matthew Ceballos MD Unavailable ELMO [...] Facility (3 sources) levoFLOXacin drug allergy 05-15-20 [facility] Work Phone: (3 sources) penicillin g drug allergy 05-15-20 [facility] Work Phone: (3 sources) sulfamethoxazole drug allergy 05-15-20 [facility] Work Phone: (20 sources) Adhesive Tape; Translations: [ADHESIVE TAPE (ROSINS)] Propensity to adverse reactions (disorder) 10-07-19 13 Other: See Comments [facility] Repository (20 sources) levoFLOXacin; Translations: [LEVOFLOXACIN] Drug Allergy 08-30-19 13 Other: See Comments [facility] Repository (20 sources) lisinopril; Translations: [LISINOPRIL] Drug Allergy 12-25-19 13 Other: See Comments [facility] Repository (20 sources) Penicillins; Translations: [PENICILLINS] Propensity to adverse reactions to drug (disorder) 08-30-19 13 Other: See Comments [facility] Repository (20 sources) Sulfonamides (Antibiotic); Translations: [SULFA (SULFONAMIDE ANTIBIOTICS)] Propensity to adverse reactions to drug (disorder) 08-30-19 13 Other: See Comments [facility] Repository (20 sources) lansoprazole; Translations: [LANSOPRAZOLE] Drug Allergy 03-26-20 19 [facility] Medications Current Medications Medication Drug Class(es) Dates [...] 05-15-2017 NORVASC 2.5 MG TABS AMLODIPINE BESYLATE [id number] Earl Oseguera MD aspirin (3 sources) Nonsteroidal Anti-inflammatory Drug Start: 05-15-2017 ADULT ASPIRIN EC LOW STRENGTH 81 MG TBEC ASPIRIN [id number] Earl Oseguera MD Problems Active Problems Problem [...] source) Long-term current use of anticoagulant; Translations: [rn long term care (current) use of anticoagulants] Episodic Other circulatory [...] 01-31-2021 01-31-2021 Episodic Other aftercare (2 sources) longterm (current) use of anticoagulants; Translations: [Chronic anticoagulation] [...] 53.58 kg Leslie Ling APRN.CNP Work Phone: [facility] 03-06-2022 10:18-0400 Diastolic blood pressure 70 mm[Hg] Leslie Ling APRN.CNP Work Phone: [facility] 03-06-2022 10:18-0400 Heart rate 98 /min Leslei Ling FILM PROJECTOR OPERATOR.HRIS MANAGER Work Phone: [facility] 03-06-2022 10:18-0400 SaO2% (BldA) [Mass fraction] 96 % Leslie Ling FILM PROJECTOR OPERATOR.HRIS MANAGER Work Phone: [facility] 03-06-2022 10:18-0400 Systolic blood pressure 98 mm[Hg] Leslie Ling FILM PROJECTOR OPERATOR.HRIS MANAGER Work Phone: [facility] 02-05-2022 08:44-0400 Body temperature 97.59 [degF] Elmo Tovar DO Work Phone: [facility] 02-05-2022 08:44-0400 Body weight 58.97 kg Elmo Tovar DO Work Phone: [facility] 02-05-2022 08:44-0400 Diastolic blood pressure 70 mm[Hg] Elmo Tovar DO Work Phone: [facility] 02-05-2022 08:44-0400 Heart rate 64 /min Elmo Tovar DO Work Phone: [facility] 02-05-2022 08:44-0400 Respiratory rate 24 /min Elmo Tovar DO Work Phone: [facility] 02-05-2022 08:44-0400 Systolic blood pressure 124 mm[Hg] Elmo Tovar DO Work Phone: [facility] 05-15-2017 07:43-0400 BMI (Body Mass Index) 25.21 kg/m2 [facility] Work Phone: 05-15-2017 07:43-0400 BP Diastolic 71 mm[Hg] Aline [facility] Work Phone: 05-15-2017 07:43-0400 BP Systolic 127 mm[Hg] Aline [facility] Work Phone: 05-15-2017 07:43-0400 Height 170.18 cm Aline [facility] Work Phone: 05-15-2017 07:43-0400 Pulse (Heart Rate) 80 /min Al[facility] Work Phone: 05-15-2017 07:43-0400 Respiratory Rate 18 /min [facility] Work Phone: 05-15-2017 07:43-0400 [facility].03 [facility] Work Phone: Encounters Encounter Date Encounter Type Care Provider Facility Start: 02-13-2023 ambulatory Abiola Diaz [facility] Procedures Date Procedure Procedure Detail Performing Clinician Start: 03-06-2022 Ct angiography neck w/contrast/noncontrast Leslie Ling APRN.CNP Work Phone: Plan of Treatment Date Care Activity Detail Author Start: 10-10-2026 Urine microalbumin profile DTAP,TDAP,TD (2 - Td or Tdap) [facility] Start: 03-08-2025 DIABETES SCREEN DIABETES SCREEN [facility] Start: 03-06-2025 DIABETES SCREEN DIABETES SCREEN [facility] Start: 10-11-2024 DIABETES SCREEN DIABETES SCREEN [facility] Start: 04-18-2023 Influenza vaccination INFLUENZA (Season Ended) [facility] Start: 03-08-2023 Hepatitis B surface antibody level LDL CHOLESTEROL [facility] Start: 10-11-2022 Hepatitis B surface antibody level LDL CHOLESTEROL [facility] Start: 08-18-2022 ADVANCE DIRECTIVE DISCUSSION ADVANCE DIRECTIVE DISCUSSION [facility] Start: 08-18-2022 DEPRESSION ASSESSMENT DEPRESSION ASSESSMENT [facility] Start: 04-18-2022 Influenza vaccination INFLUENZA (#1) [facility] Start: 09-30-2021 COVID-19 VACCINE (4 - Booster for Pfizer series) COVID-19 VACCINE (4 - Booster for Pfizer series) [facility] Start: 08-18-2021 ADVANCE DIRECTIVE DISCUSSION ADVANCE DIRECTIVE DISCUSSION [facility] Start: 08-18-2021 DEPRESSION ASSESSMENT DEPRESSION ASSESSMENT [facility] Start: 07-25-2021 COVID-19 VACCINE (4 - Booster for Pfizer series) COVID-19 VACCINE (4 - Booster for Pfizer series) [facility] Start: 05-26-2017 End: 05-26-2017 Appointment Appointment [facility] Work Phone: Start: 05-15-2017 End: 05-15-2017 Colonoscopy flx dx w/collj spec when pfrmd Colonoscopy [facility] [employer] Work Phone: Start: 05-15-2017 End: 05-15-2017 Esophagogastroduodenoscopy transoral diagnostic EGD; diagnostic [facility] [employer] Work Phone: Start: 05-15-2017 End: 05-15-2017 Appointment Appointment [facility] [employer] Work Phone: Start: 05-15-2017 End: 05-15-2017 Diagnostic colonoscopy Colonoscopy [facility] [employer] Work Phone: Start: 05-15-2017 End: 05-15-2017 Uppr gi endoscopy, diagnosis EGD; diagnostic [facility] [employer] Work Phone: Start: 11-11-1985 SHINGRIX VACCINE (1 of 2) SHINGRIX VACCINE (1 of 2) [facility] Immunizations Immunization Date Immunization Notes Care Provider Angella puga 05-30-2021 COVID-19 vaccine, ag e 12+ yr (PFIZER-BIONTECH - PURPLE TOP) [facility] Work Phone: [facility] 05-07-2021 influenza, high-dose , quadrivalent vaccine (FLUZONE HIGH DOSE QUADRIVALENT) [facility] Work Phone: [facility] Work Phone: 10-06-2020 COVID-19 vaccine, ag e 12+ yr (PFIZER-BIONTECH - PURPLE TOP) [facility]tico[facility]str Work Phone: [facility] Work Phone: 09-15-2020 COVID-19 vaccine, ag e 12+ yr (PFIZER-BIONTECH - PURPLE TOP) [facility]tico[facility]str Work Phone: [facility] 05-19-2020 influenza, high-dose , quadrivalent vaccine (FLUZONE HIGH DOSE QUADRIVALENT) [facility]tico[facility] Wstr Work Phone: [facility] Work Phone: 05-19-2019 influenza, high dose seasonal, preservative-free [facility]tico[facility] Work Phone: [facility] Work Phone: 05-18-2018 influenza, seasonal, injectable, preservative free [facility] Work Phone: [facility] 05-11-2018 influenza, high dose seasonal, preservative-free [facility]tico[facility]str Work Phone: [facility] 04-22-2017 influenza, high dose seasonal, preservative-free [facility]tico[facility]str Work Phone: [facility] 10-10-2016 tetanus toxoid, redu cristi diphtheria toxoid, and acellular pertussis vaccine, adsorbed [facility] Work Phone: [facility] 03-24-2016 influenza, high dose seasonal, preservative-free [facility]tico[facility]str Work Phone: [facility] 08-07-2015 pneumococcal conjuga te vaccine, 13 valent [facility]tico[facility]str Work Phone: [facility] 04-20-2015 influenza, high dose seasonal, preservative-free Anticoag Wstr Work Phone: [facility] Work Phone: 04-20-2015 influenza, injectabl e, quadrivalent, preservative free Antico[facility]str Work Phone: [facility] 04-20-2015 pneumococcal polysaccharide vaccine, 23 valent Antico[facility]str Work Phone: [facility] 04-14-2014 influenza, high dose seasonal, preservative-free Anticoag Wstr Work Phone: [facility] 05-23-2013 influenza virus vacc ine, unspecified formulation [facility]tico[facility] Work Phone: [facility] Work Phone: 04-18-2012 influenza virus vacc ine, whole virus [facility] Work Phone: [facility] 12-06-2010 pneumococcal polysaccharide vaccine, 23 valent [facility]tico[facility]str Work Phone: [facility] Work Phone: 08-18-2000 pneumococcal polysaccharide vaccine, 23 valent Anticoag Wstr Work Phone: [facility] Payers Date Payer Category Payer Private Health Insurance [facility] [id number] 2019 Private Health Insurance AET[employer] A ETNA MEDICARE SUPPLEMENT [id number] 2019-Present [phone] [address] [address] [place] [address] Indemnity [id number] 2019 Private Health Insurance [employer] A ETNA MEDICARE SUPPLEMENT [id number] 2019-Present [phone] [address] [address] [place] [address] Indemnity [id number] 2000 Medicare [id number] 2000 Medicare MEDICARE MEDICAR E A AND B [id number] 2000-Present [phone] [place] [address] Medicare [id number] 2000 Medicare MEDICARE MEDICAR E A AND B [id number] 2000-Present [phone] [place] [address] Medicare [id number] 1935 Unknown [id number] Medicare [id number] Social History Date Type Detail Facility Start: [facility]23-[facility] End: 08-18-1992 History of tobacco use Current smoker [facility] End: 08-18-1992 History of tobacco use Cigarette Smoker [facility] Start: 09-23-2012 Tobacco use and exposure Smokeless tobacco non-user [facility] Start: 11-05-2021 End: 03-07-2022 Alcohol intake Current drinker of alcohol (finding) [facility] Start: 08-30-2012 History SDOH Alcohol Comment once every 6 months [facility] Start: 1935 Sex Assigned At Female C [facility] Start: 11-02-2021 End: 03-07-2022 Exposure to SARS-CoV-2 (event) Not sure [facility] Work Phone: Start: 03-08-2022 History SDOH Financial 4 [facility] Start: 03-08-2022 History SDOH Food Worry 1 [facility] Start: 03-08-2022 History SDOH Transpo rt Med 2 [facility] Medical Equipment Procedure Code Equipment Code Equipment Origin al Text Equipment Identifier Dates Icd-04/30/2013 [id number] Start: 04-30-2013 Clinical Notes 05-19-2019 to 02-13-2023 Abiola Lopez MA - 02/13/2023 10:42 AM Sonya Rosenberg MA - 01/22/2023 1:06 PM EDTTelephone Encounter - Mary Fairbanks LPN - 11/05/2022 9:02 AM EDTPatient Instructions Note Date & Type Note Facility 02-13-2023 Note Patient Outreach (ROGELIO TNAV) GRACIE AVILA ([id number]) 1935 F Date Time Provider Department 02/13/23 [...] Phone number not valid / voicemail full [employer] message sent Did you use a PCP [...] implantable loop recorder [Z95.0] 06/08/2013 History of OK (myocardial infarction) [I25.2] 08/21/2013 Osteoarthritis of spine [...] Hypoalbuminemia [E88.09] 01/31/2021 Coronary artery disease involving [place]ag gómez*05/08/2021 Gait disorder [R26.9] 11/05/2021 Impaired fasting glucose [R73.01] 11/05/2021 Acute stroke due to ischemia (HCC) [I63.9] 03/07/[address] (more content not included)... [facility] 02-13-2023 Note HNO ID: [id number] Author: Abiola Lopez MA Service: ? Author Type: Sheet Rock Taper Helper Type: Progress Notes Filed: 02/13/2023 3:45 PM Note Text: POPULATION HEALTH NAVIGATION OUTREACH Action/ no answer mychart message sent ANNUAL MEDICARE WELLNESS EXAM ADVANCE DIRECTIVE DISCUSSION Patient Identified by Name and : NO Outreach Outcome/Action Unable to reach patient: Phone number not valid / voicemail full [employer] message sent Did you use a PCP [...] Lopez MA February 13, 2023 10:42 AM [facility] 02-13-2023 History of Present illness Narrative POPULATION [...] 2023 10:42 AM documented in this encounter [facility] 01-22-2023 Note HNO ID: [id number] Author: Michelle Rosenberg MA Service: ? Author Type: Sheet Rock Taper Helper Type: Progress Notes Filed: 01/22/2023 1:17 PM Note Text: POPULATION HEALTH NAVIGATION OUTREACH Action/January 22, 2023 1:07 PM HCC Gaps I77.6 - Vasculitis (HCC) - [id number] Last Billed 11/05/2021 M06.4 - Inflammatory polyarthropathy (HCC) - [id number] Last Billed 11/05/2021 TOLU with PCP Team was March 06, 2022 with Leslie Ling CNP Outcome: Spoke with patients sister in law. She advises that patient has been at [facility] since about last March and is now under the care of the physicians at this site now. She is no longer seening Dr Tovar. Advised her I will remove Dr Tovar as PCP at [facility]. Thank you Patient Identified by Name and [...] Rosenberg MA January 22, 2023 1:07 PM [facility] 01-22-2023 Note Patient Outreach (ROGELIO STEINBERG) GRACIE AVILA ([id number]) 1935 F Date Time Provider Department 01/22/23 MICHELLE ROSENBERG During your visit today, we recorded the following information about you: Michelle Rosenberg MA 01/22/2023 1:17 PM Signed POPULATION HEALTH NAVIGATION OUTREACH Action/January 22, 2023 1:07 PM HCC Gaps I77.6 - Vasculitis (HCC) - [id number] Last Billed 11/05/2021 M06.4 - Inflammatory polyarthropathy (HCC) - [id number] Last Billed 11/05/2021 TOLU with PCP Team was March 06, 2022 with Leslie Ling CNP Outcome: Spoke with patients sister in law. She advises that patient has been at [facility] since about last March and is now under the care of the physicians at this site now. She is no longer seening Dr Tovar. Advised her I will remove Dr Tovar as PCP at [facility]. Thank you Patient Identified by Name and [...] implantable loop recorder [Z95.0] 06/08/2013 History of OK (myocardial infarction) [I25.2] 08/21/2013 Osteoarthritis of spine [...] 03/23/2019 Vaginal it (more content not included)... [facility] 01-22-2023 History of Present illness Narrative POPULATION HEALTH NAVIGATION OUTREACH Action/FYI January 22, 2023 1:07 PM HCC Gaps I77.6 - Vasculitis (HCC) - [id number] Last Billed 11/05/2021 M06.4 - Inflammatory polyarthropathy (HCC) - [id number] Last Billed 11/05/2021 TOLU with PCP Team was March 06, 2022 with Leslie Ling CNP Outcome: Spoke with patients sister in law. She advises that patient has been at [facility] since about last March and is now under the care of the physicians at this site now. She is no longer seening Dr Tovar. Advised her I will remove Dr Tovar as PCP at [facility]. Thank you Patient Identified by Name and [...] 2023 1:07 PM documented in this encounter [facility] 12-03-2022 Note HNO ID: [id number] Author: Michelle Rosenberg MA Service: ? Author Type: Sheet Rock Taper Helper Type: Progress Notes Filed: 12/03/2022 12:18 PM Note Text: POPULATION HEALTH NAVIGATION OUTREACH Action/December 03, 2022 12:14 PM HCC Gaps I77.6 - Vasculitis (HCC) - [id number] Last Billed 11/05/2021 M06.4 - Inflammatory polyarthropathy (HCC) - [id number] Last Billed 11/05/2021 TOLU with PCP Team was March 06, 2022 with Leslie Ling CNP Outcome: Left message My chart sent Patient Identified by Name and : NO Outreach Outcome/Action Unable to reach patient: Left message [employer] message sent Did you use a PCP [...] Rosenberg MA December 03, 2022 12:14 PM [facility] 12-03-2022 Note Patient Outreach (ROGELIO TNAV) GRACIE AVILA ([id number]) 1935 F Date Time Provider Department 12/03/22 MICHELLE ROSENBERG During your visit today, we recorded the following information about you: Michelle Rosenberg MA 12/03/2022 12:18 PM Signed POPULATION HEALTH NAVIGATION OUTREACH Action/December 03, 2022 12:14 PM HCC Gaps I77.6 - Vasculitis (HCC) - [id number] Last Billed 11/05/2021 M06.4 - Inflammatory polyarthropathy (HCC) - [id number] Last Billed 11/05/2021 TOLU with PCP Team [...] implantable loop recorder [Z95.0] 06/08/2013 History of OK (myocardial infarction) [I25.2] 08/21/2013 Osteoarthritis of spine [...] Hypoalbuminemia [E88.09] 01/31/2021 Coronary artery disease involving [place] gómez*05/08/2021 Gait disorder [R26.9] 11/05/2021 Impaired fasting glucose [R73.01] 03 (more content not included)... [facility] 11-05-2022 Miscellaneous Notes Patient has been identified by name and date of : Pharmacy phones for refill(s): Requested Prescriptions Pending Prescriptions Disp Refills potassium chloride (K-TAB) 10 mEq tablet 90 tablet Sig: Take 1 tablet by mouth once daily. Date of last office visit in primary care: [place] resident Last 2 Encounter Wt Readings: Date: Wt: 03/07/2022 53.5 kg (117 lb 15.1 oz) 03/06/2022 53.6 kg (118 lb 1.9 oz) Previous labs/tests for medication: Blood Pressure: BUN (mg/dL) Date Value 03/09/2022 14 10/11/2021 13 Sodium (mmol/L) Date Value 03/09/2022 141 10/11/2021 146 Last 1 Encounter BP Readings: Date: BP: 03/07/2022 110/57 Please advise. Thank you. Mary Fairbanks [facility] requesting 90 day rx, they deliver to [place]. documented in this encounter [facility] 08-30-2022 Note HNO ID: [id number] Author: Dequan Villa RN Service: ? Author Type: Registered Nurse Type: Progress Notes Filed: 08/30/2022 11:28 AM Note Text: [facility] Enrollment Provider Action/FYI: Patient referred by: [facility] Chelsey Contact made with patient: No - Unable to leave message: (Keep encounter open and attempt 2nd outreach in two business days from today). END OUTREACH [facility] 08-30-2022 History of Present illness Narrative [facility] Enrollment Provider Action/FYI: Patient referred by: [facility] Chlesey Contact made with patient: No - Unable to leave message: (Keep encounter open and attempt 2nd outreach in two business days from today). END OUTREACH [facility] Enrollment Provider Action/FYI: Patient referred by: [facility] Chelsey Contact made with patient: No - Left Message: Hi my name is Dequan Villa RN and I am calling from the [facility] on behalf of your PCP, Elmo Tovar DO. We are excited to share with you a new program to help you manage your health. Please call me back at [phone] between the hours of 8am-5pm Friday-Friday. You will receive another phone call from me within the next two business days. I hope you can take the time to speak with me. (Keep encounter open and attempt 2nd outreach in two business days from today) END OUTREACH documented in this encounter [facility] 08-28-2022 Note Patient Outreach ([facility]) GRACIE AVILA ([id number]) 1935 F Date Time Provider Department 08/28/22 DEQUAN VILLA During your visit today, we recorded the following information about you: Dequan Villa RN 08/30/2022 11:28 AM Signed [facility] Enrollment Provider Action/FYI: Patient referred by: [facility] Chelsey Contact made with patient: No - Left Message: Hi my name is Dequan Villa RN and I am calling from the [facility] on behalf of your PCP, Elmo Tovar DO. We are excited to share with you a new program to help you manage your health. Please call me back at [phone] between the hours of 8am-5pm Friday-Friday. You will receive another phone call from me within the next two business days. I hope you can take the time to speak with me. (Keep encounter open and attempt 2nd outreach in two business days from today) END OUTREACH Dequan Villa RN 08/30/2022 11:28 AM Signed [facility] Enrollment Provider Action/FYI: Patient referred by: [facility] Chelsey Contact made with patient: No - [...] [E53.8] Order(s):CONSULT TO PRIMARY CARE COORDINATION CDM [[id number]] Order #: [id number]: 1 Prescriptions as of 08/30/2022 - loratadine [...] implantable loop recorder [Z95.0] 06/08/2013 History of OK (myocardial infarction) [I25.2] 08/21/2013 Osteoarthritis of spine [...] Hypoalbuminemia [E88.09] 01/31/2021 Coronary artery disease involving [place] gómez*05/08/2021 Gait disorder [R26.9] 11/05/2021 Impaired fasting glucose [R73.01] 11/05/2021 Acute stroke due to isch (more content not included)... [facility] 08-28-2022 Note HNO ID: [id number] Author: Dequan Villa RN Service: ? Author Type: Registered Nurse Type: Progress Notes Filed: 08/30/2022 11:28 AM Note Text: [facility] Enrollment Provider Action/FYI: Patient referred by: [facility] Chelsey Contact made with patient: No - Left Message: Hi my name is Dequan Villa RN and I am calling from the [facility] on behalf of your PCP, Elmo Tovar DO. We are excited to share with you a new program to help you manage your health. Please call me back at [phone] between the hours of 8am-5pm Friday-Friday. You will receive another phone call from me within the next two business days. I hope you can take the time to speak with me. (Keep encounter open and attempt 2nd outreach in two business days from today) END OUTREACH [facility] 07-09-2022 Miscellaneous Notes The following approved medication [...] non-symptom based questions: Thank you for calling [facility], your call will be returned within the next business day. Kimmy Scruggs [facility] documented in this encounter [facility] 05-03-2022 Note HNO ID: [id number] Author: Michelle Keyes APRN.HRIS MANAGER Service: ? Author Type: Nurse Practitioner Type: Progress Notes Filed: 05/03/2022 8:18 AM Note Text: Resent per daughter's request. Refer to paperwork in outbox. The following approved medication requests have been transmitted electronically. Requested Prescriptions Signed Prescriptions Disp Refills loratadine (CLARITIN) 10 mg tablet 30 tablet 2 Sig: Take 1 tablet by mouth daily at bedtime. Michelle Keyes APRN.CNP [facility] 05-02-2022 Note HNO ID: [id number] Author: Michelle Keyes APRN.CNP Service: ? Author Type: Nurse Practitioner Type: Progress Notes Filed: 05/02/2022 8:08 AM Note Text: The following approved medication requests have been transmitted electronically. Requested Prescriptions Signed Prescriptions Disp Refills loratadine (CLARITIN) 10 mg tablet 30 tablet 2 Sig: Take 1 tablet by mouth daily at bedtime. Michelle Keyes APRN.CNP [facility] 05-02-2022 History of Present illness Narrative The following approved medication requests have been transmitted electronically. Requested Prescriptions Signed Prescriptions Disp Refills loratadine (CLARITIN) 10 mg tablet 30 tablet 2 Sig: Take 1 tablet by mouth daily at bedtime. Michelle Keyes APRN.CNP documented in this encounter [facility] 04-12-2022 Miscellaneous Notes Spoke with pts daughter Erin gave information provided. She voices understanding. I believe this has to be ordered by new provider due to being completed within facility. Please have her discuss with Dr. Carrera. Thank you, Michelle Keyes APRN.CNP Pts daughter called in and reports that her Mother will be moving into [facility]. She reports she will be transitioning to their provider Dr Moiz Carrera. She reports that this provider had gotten PT and OT approved for the Pt and she wanted to see if that could be transferred over to [place] so her mother could start PT/OT as soon as possible. She reports she is doing ok, but is getting too comfortable in the wheelchair. Please call and advise daughter. documented in this encounter [facility] 03-28-2022 Miscellaneous Notes Letter printed will fax to [facility]. Pt daughter notified of info. Will contact [facility] in the AM with info. Miriam Ledesma Ma Ok to discontinue O2. Please relay verbal order to do so. Thank you, Michelle Keyes APRN.DAYAN Pt's daughter Erin is calling to report pt has been in [facility] rehab and family is currently looking for an assisted living facility. Erin reports pt had O2 from [facility] when she had pneumonia. Erin reports while in rehab pt has not used O2 at all x 2 weeks. Erin is asking if an order can be sent to [facility] to stop O2. [facility] advised they need an order from the dr to discontinue service. Call Erin with dr's message. Marlys Gómez LPN documented in this encounter [facility] 03-14-2022 Miscellaneous Notes Noted, thank you. Leslie Ling APRN.HRIS MANAGER Justyna- [facility]- wanted to let provider know, she is not setting up HH for patient at this time, because patient is at [facility]. Reports [facility] usually sends them the info on discharge. documented in this encounter [facility] 03-13-2022 Miscellaneous Notes Fax information and order to [facility]. Please fax order to [facility] home health. Leslie Ling APRN.HRIS MANAGER Pts daughter called in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 this information is protected by the Federal Confidentiality of Alcohol and Drug Abuse Patient Records regulations: The Federal rules restrict any use of the information to criminally investigate or prosecute any alcohol or drug abuse patient.[facility] the event this information is protected by the Federal Confidentiality of Alcohol and Drug Abuse Patient Records regulations: The Federal rules restrict any use of the information to criminally investigate or prosecute any alcohol or drug abuse patient.[facility] the event this information is protected by the Federal Confidentiality of Alcohol and Drug Abuse Patient Records regulations: The Federal rules restrict any use of the information to criminally investigate or prosecute any alcohol or drug abuse patient.[facility] the event this information is protected by the Federal Confidentiality of Alcohol and Drug Abuse Patient Records regulations: The Federal rules restrict any use of the information to criminally investigate or prosecute any alcohol or drug abuse patient.[facility] the event this information is protected by the Federal Confidentiality of Alcohol and Drug Abuse Patient Records regulations: The Federal rules restrict any use of the information to criminally investigate or prosecute any alcohol or drug abuse patient.[facility] the event this information is protected by the Federal Confidentiality of Alcohol and Drug Abuse Patient Records regulations: The Federal rules restrict any use of the information to criminally investigate or prosecute any alcohol or drug abuse patient.[facility] Hospital[facility] the event this information is protected by the Federal Confidentiality of Alcohol and Drug Abuse Patient Records regulations: The Federal rules restrict any use of the information to criminally investigate or prosecute any alcohol or drug abuse patient.[facility] the event this information is protected by the Federal Confidentiality of Alcohol and Drug Abuse Patient Records regulations: The Federal rules restrict any use of the information to criminally investigate or prosecute any alcohol or drug abuse patient.[facility] Hospital[facility] the event this information is protected by the Federal Confidentiality of Alcohol and Drug Abuse Patient Records regulations: The Federal rules restrict any use of the information to criminally investigate or prosecute any alcohol or drug abuse patient.[facility] the event this information is protected by the Federal Confidentiality of Alcohol and Drug Abuse Patient Records regulations: The Federal rules restrict any use of the information to criminally investigate or prosecute any alcohol or drug abuse patient.[facility] the event this information is protected by the Federal Confidentiality of Alcohol and Drug Abuse Patient Records regulations: The Federal rules restrict any use of the information to criminally investigate or prosecute any alcohol or drug abuse patient.[facility] Hospital[facility] the event this information is protected by the Federal Confidentiality of Alcohol and Drug Abuse Patient Records regulations: The Federal rules restrict any use of the information to criminally investigate or prosecute any alcohol or drug abuse patient.[facility] the event this information is protected by the Federal Confidentiality of Alcohol and Drug Abuse Patient Records regulations: The Federal rules restrict any use of the information to criminally investigate or prosecute any alcohol or drug abuse patient.[facility] Hospital[facility] the event this information is protected by the Federal Confidentiality of Alcohol and Drug Abuse Patient Records regulations: The Federal rules restrict any use of the information to criminally investigate or prosecute any alcohol or drug abuse patient.[facility] Hospital[facility] the event this information is protected by the Federal Confidentiality of Alcohol and Drug Abuse Patient Records regulations: The Federal rules restrict any use of the information to criminally investigate or prosecute any alcohol or drug abuse patient.[facility] the event this information is protected by the Federal Confidentiality of Alcohol and Drug Abuse Patient Records regulations: The Federal rules restrict any use of the information to criminally investigate or prosecute any alcohol or drug abuse patient.[facility] Hospital[facility] the event this information is protected by the Federal Confidentiality of Alcohol and Drug Abuse Patient Records regulations: The Federal rules restrict any use of the information to criminally investigate or prosecute any alcohol or drug abuse patient.[facility] the event this information is protected by the Federal Confidentiality of Alcohol and Drug Abuse Patient Records regulations: The Federal rules restrict any use of the information to criminally investigate or prosecute any alcohol or drug abuse patient.[facility] HospitalIn the event this information is protected by the Federal Confidentiality of Alcohol and Drug Abuse Patient Records regulations: The Federal rules restrict any use of the information to criminally investigate or prosecute any alcohol or drug abuse patient.[facility] Reason for Visit (unrecogniz ed section and [...] IVCON CT ANGIOGRAPHY NECK W/CONTRAST/NONCONTRAST Leslie Ling, LUCA.HRIS MANAGER [address] [place] [address] Ct Imaging Referral ID Status Reason Start Date Expiration Date V isits Requested Visits Authorized [id number] Closed Auto-Generate d Referral 03/06/2022 04/05/2023 1 1 Reason Comments Erroneous encounter-disregard Reason Comments Patient Update Patient Question Orders Reason Comments [facility] HH referral update Reason Comments Orders Reason Comments Patient Update Patient Question Reason Onset Date Comments cdm 08/28/2022 enrollment Reason Onset Date Comments Refill Request 11/05/2022 Reason Onset Date Comments Population Health Navigation Outreach 01/22/2023 [facility] HCC Reason Onset Date Comments Population Health Navigation Outreach 02/13/2023 [facility]SA Care Teams (unrecognized sec tion and content) French Comber Relationship Specialty Start Date End Date Elmo Tovar DO [address] [place] [address] PCP - General Family Practice 09/05/12 Shawanda, Abhijeet S [address] [place] [address] Physician Cardiology 12/11/18 Matthew Ceballos MD Primary Staff Physician Cardiology 11/03/18 French Comber Relationship Specialty Start Date End Date Elmo Tovar, DO [address] [facility] [place] [address] PCP - General Family Practice 09/05/12 Shawanda, Abhijeet S [address] [place] [address] Physician Cardiology 12/11/18 Matthew Ceballos MD Primary Staff Physician Cardiology 11/03/18 French Comber Relationship Specialty Start Date End Date Elmo Tovar, DO [address] [facility] [place] [address] PCP - General Family Practice 09/05/12 Shawanda, Abhijeet S [address] [place] [address] Physician Cardiology 12/11/18 Matthew Ceballos MD Primary Staff Physician Cardiology 11/03/18 French Comber Relationship Specialty Start Date End Date Elmo Tovar, DO [address] [facility] [place] [address] PCP - General Family Practice 09/05/12 Shawanda, [place] S [address] [place] [address] Physician Cardiology 12/11/18 Matthew Ceballos MD Primary Staff Physician Cardiology 11/03/18 French Comber Relationship Specialty Start Date End Date Elmo Tovar, DO [address] [place] [address] PCP - General Family Practice 09/05/12 Shawanda, [place] S [address] [place] [address] Physician Cardiology 12/11/18 Matthew Ceballos MD Primary Staff Physician Cardiology 11/03/18 French Comber Relationship Specialty Start Date End Date Elmo Tovar, DO [address] [place] [address] PCP - General Family Practice 09/05/12 Shawanda, Abhijeet S [address] [place] [address] Physician Cardiology 12/11/18 Matthew Ceballos MD Primary Staff Physician Cardiology 11/03/18 French Comber Relationship Specialty Start Date End Date Elmo Tovar, DO [address] [place] [address] PCP - General Family Practice 09/05/12 Shawanda, Abhijeet S [address] [place] [address] Physician Cardiology 12/11/18 Matthew Ceballos MD Primary Staff Physician Cardiology 11/03/18 French Comber Relationship Specialty Start Date End Date Elmo Tovar, DO [address] [place] [address] PCP - General Family Practice 09/05/12 Shawanda, Abhijeet S [address] [place] [address] Physician Cardiology 12/11/18 Matthew Ceballos MD Primary Staff Physician Cardiology 11/03/18 French Comber Relationship Specialty Start Date End Date Elmo Tovar, DO [address] [facility] [place] [address] PCP - General Family Practice 09/05/12 Shawanda, Abhijeet S [address] [place] [address] Physician Cardiology 12/11/18 Matthew Ceballos MD Primary Staff Physician Cardiology 11/03/18 French Comber Relationship Specialty Start Date End Date Elmo Tovar, DO [address] [facility] [place] [address] PCP - General Family Practice 09/05/12 Shawanda, [place] S [address] [place] [address] Physician Cardiology 12/11/18 Matthew Ceballos MD Primary Staff Physician Cardiology 11/03/18 French Comber Relationship Specialty Start Date End Date Elmo Tovar, DO [address] [facility] [place] [address] PCP - General Family Practice 09/05/12 Shawanda, Abhijeet S [address] [place] [address] Physician Cardiology 12/11/18 Matthew Ceballos MD Primary Staff Physician Cardiology 11/03/18 French Comber Relationship Specialty Start Date End Date Elmo Tovar, DO [address] [facility] [place] [address] PCP - General Family Practice 09/05/12 Shawanda, Abhijeet S [address] [place] [address] Physician Cardiology 12/11/18 Matthew Ceballos MD Primary Staff Physician Cardiology 11/03/18 French Comber Relationship Specialty Start Date End Date Elmo Tovar, DO [address] [facility] [place] [address] PCP - General Family Practice 09/05/12 Shaw[place], [place] S [address] [place] [address] Physician Cardiology 12/11/18 Matthew Ceballos MD Primary Staff Physician Cardiology 11/03/18 French Comber Relationship Specialty Start Date End Date Elmo Tovar, DO [address] [facility] [place] [address] PCP - General Family Medicine 09/05/12 Shawanda, Abhijeet S [address] [place] [address] Physician Cardiology 12/11/18 Matthew Ceballos MD [address] [place] [address] Primary Staff Physician Cardiology 11/03/18 French Comber Relationship Specialty Start Date End Date Elmo Tovar, DO [address] [facility] [place] [address] PCP - General Family Medicine 09/05/12 Wilbur Mayberryril S [address] [place] [address] Physician Cardiology 12/11/18 Matthew Ceballos MD [address] [place] [address] Primary Staff Physician Cardiology 11/03/18 French Comber Relationship Specialty Start Date End Date Wilbur Mayberryril S [address] [place] [address] Physician Cardiology 12/11/18 Matthew Ceballos MD [address] [place] [address] Primary Staff Physician Cardiology 11/03/18 FOR RECORDS [...] BE BASED ON THE PRIMARY CLINICAL RECORDS. [facility] [employer] [facility]. provides no warranty or guarantee of the accuracy or completeness of information in this document.
--- NOTE | 2023-09-18 22:19 | ECHOCS_ITS ---
Reason For Study: Dyspnea/SOB Procedure This was a 2D Doppler, Color Flow transthoracic echocardiogram. The study was technically difficult. The study was technically limited. Contrast injection was performed. Echo done with patient in room recliner. Nursing staff was unable to transfer patient to bed due to patients unwillingness. Exam performed portable in patient room. Left Ventricle Normal LV size. LV systolic function is grossly normal. The estimated ejection fraction is 60 %. Unable to assess diastolic function based on available data. Right Ventricle Normal RV size. There is a pacemaker lead in the right ventricle. Normal systolic function. Atria Normal left atrium. ICD or pacer leads identified within the right atrium. Normal right atrium. Mitral Valve There is Moderate focal posterior mitral annular calcification. Mild diffuse mitral valve thickening. Mild focal mitral valve calcification. There is no mitral valve stenosis. Tricuspid Valve Normal tricuspid valve. Trivial tricuspid valve insufficiency. Unable to estimate RV systolic pressure due to insufficient tricuspid regurgitant envelope. Aortic Valve The aortic valve is not well visualized in the short axis view. There is no aortic stenosis. Pulmonic Valve The pulmonic valve is not well visualized. Great Vessels The aortic root is not well visualized. Pericardium/Pleural No pericardial effusion. Medication Diluted definity 2.5ml given slow IV push to enhance endocardial definition. MMode/2D Measurements & Calculations RVDd: 2.5 cm LAV(MOD-sp2): 35.0 ml RA A4 area: 9.2 cm2 Time Measurements MV dec time: 0.32 sec Doppler Measurements & Calculations MV E max sanjiv: 45.4 cm/sec Lat Peak E' Sanjiv: 3.4 cm/sec Med Peak E' Sanjiv: 5.5 cm/sec MV A max sanjiv: 59.1 cm/sec E/E' lat: 13.2 E/E' med: 8.3 MV E/A: 0.77 MV V2 max: 62.2 cm/sec MV P1/2t max sanjiv: 54.6 cm/sec Ao V2 max: 124.8 cm/sec MV max P.5 mmHg MV P1/2t: 120.9 msec Ao max P.2 mmHg MV V2 mean: 39.1 cm/sec MV dec slope: 132.2 cm/sec2 MV mean P.68 mmHg MV V2 VTI: 19.7 cm MVA(P1/2t): 1.8 cm2 LV V1 max: 54.8 cm/sec LV V1 max P.2 mmHg ECHO/Echo Complete W/ Contrast Interpretation Summary The estimated ejection fraction is 60 %. There is Moderate focal posterior mitral annular calcification. Mild diffuse mitral valve thickening. The study was technically limited. The study was technically difficult. Contras t injection was performed. Ordering Physician: Libertad Hall Performed By: Benjamín Gonzalez RCS
[2023-09-18] MEDS: Atorvastatin Calcium 20 MG Tablet PO (23:13)
[2023-09-18] MEDS: Carvedilol 12.5 MG Tablet PO (23:13)
[2023-09-18] MEDS: Furosemide 40 MG/4 ML Vial IV (23:14)
[2023-09-18 23:52] LABS: Troponin-I HS 206 pg/mL (3.0-54.0)
[2023-09-19] VITALS (9 sets, daily range): BP systolic 94–103; BP diastolic 65–66; PULSE 64–94; RESP 16–18; TEMP 36.2–36.5; O2SAT 84–96; BMI 20.1
[2023-09-19] MEDS: Levothyroxine 75 MCG Tablet PO (06:07)
[2023-09-19 06:34] LABS: Absolute Neutrophil Count 3.4 X10^3/uL (2.0-7.7); Basophil# 0.03 X10^3/uL; Basophil% 0.5 % (0-1); Eosinophil# 0.25 X10^3/uL; Eosinophils% 4.1 % (0-5); Hematocrit 39.3 % (37-47); Hemoglobin 12.7 g/dL (12.0-15.0); Lymphocyte % 29.5 % (19-41); Mean Corp Hgb Conc 32.3 g/dL (32-36); Mean Corpuscular Hgb 29.3 pg (27.0-32.0); Mean Corpuscular Volume 90.6 fL (81-99); Mean Platelet Vol. 9.7 fl (6.2-12.0); Monocyte# 0.63 X10^3/uL; Monocyte% 10.3 % (0-10); NRBC Flagged by Analyzer 0 % (0-5); Neutrophil # 3.38 X10^3/uL (2.7-7.7); Neutrophil % 55.4 % (47-70); Platelet Count 218 K/mm3 (150-450); RBC Distribution Width CV 13.2 % (11.6-14.6); RBC Distribution Width SD 43.9 fl (35.1-43.9); Red Blood Count 4.34 M/mm3 (4.2-5.4); White Blood Count 6.1 K/mm3 (4.4-11.0)
[2023-09-19] MEDS: Ipratropium/Albuterol Sulfate 3 ML AMPUL.NEB INHALATION ×2 (07:02→13:05)
[2023-09-19 07:07] LABS: ALB/GLOB Ratio 0.8 RATIO (0.9-2.4); AST(SGOT) 15 U/L (15-37); Alanine Aminotransfer ALT/SGPT 13 U/L (13-56); Alkaline Phosphatase 98 U/L (45-117); Anion Gap 2 (5-15); BUN 13 mg/dL (7-18); BUN/Creat Ratio 18.7 RATIO (10-20); Calcium,Total 8.9 mg/dL (8.5-10.1); Chloride 107 mmol/L (98-107); EST Glomerular Filtration Rate 85 mL/min (>60); Est Glom Filt Rate - Afr Amer 102 mL/min (>60); Estimated Creatinine Clearance 45.68 ml/min; Globulin 3.8 g/dL (2.2-4.2); Glucose 95 mg/dL (74-106); Magnesium 2.3 mg/dL (1.6-2.6); Phosphorus 3.1 mg/dL (2.5-4.9); Potassium 3.8 mmol/L (3.5-5.1); Protein, Total 6.8 g/dL (6.4-8.2); Sodium Level 142 mmol/L (136-145); Thyroid Stim Hormone (TSH) 0.47 uIU/mL (0.358-3.74)
--- NOTE | 2023-09-19 08:41 | PN.HOSP_ITS ---
Subjective Subjective Breathing well. Objective Data Objective Data Vital Signs: Vital Signs Temp Pulse Resp BP Pulse Ox O2 Del Method O2 Flow Rate 36.2 C L 64 17 103/66 95 Nasal Cannula 2 09/19/23 03:00 09/19/23 07:02 09/19/23 07:02 09/19/23 03:00 09/19/23 03:00 09/19/23 07:45 09/19/23 07:45 Oxygen Flow Rate (L/min) 2 Oxygen Delivery Method Nasal Cannula Weight: 58.4 kg Body Mass Index (BMI) 20.1 Intake & Output: Intake and Output for Last 24 Hours 09/17/23 09/18/23 09/19/23 23:59 23:59 23:59 Output Total 600 / 600 Balance -600 / -600 Lab / Micro Data 09/19/23 06:00 09/19/23 06:00 Labs: Laboratory Results - last 24 hr 09/18/23 17:35: WBC 5.9, RBC 4.44, Hgb 12.9, Hct 41.9, MCV 94.4, MCH 29.1, MCHC 30.8 L, RDW Std Deviation 45.7 H, RDW Coeff of Duc 13.2, Plt Count 214, MPV 9.3, Immature Gran % (Auto) 0.200, Neut % (Auto) 56.3, Lymph % (Auto) 31.9, [place] % (Auto) 8.1, Eos % (Auto) 3.2, Baso % (Auto) 0.3, Absolute Neuts (auto) 3.3, Absolute Lymphs (auto) 1.88, Nucleated RBC % 0, PT 19.9 H, INR 1.7, D-Dimer Quant (PE/DVT) 0.43, Sodium 142, Potassium 4.5, Chloride 112 H, Carbon Dioxide 34.0 H, Anion Gap -4 L, BUN 15, Creatinine 0.64, Estim Creat Clear Calc 44.58, Est GFR (MDRD) Af Amer 113, Est GFR (MDRD) Non-Af 93, BUN/Creatinine Ratio 23.4 H, Glucose 123 H, Calcium 9.2, Troponin I High Sens 203 H*, B-Natriuretic Peptide 256.8 H 09/18/23 19:45: Troponin I High Sens 193 H* 09/18/23 23:13: Troponin I High Sens 206 H* 09/19/23 06:00: WBC 6.1, RBC 4.34, Hgb 12.7, Hct 39.3, MCV 90.6, MCH 29.3, MCHC 32.3, RDW Std Deviation 43.9, RDW Coeff of Duc 13.2, Plt Count 218, MPV 9.7, Immature Gran % (Auto) 0.200, Neut % (Auto) 55.4, Lymph % (Auto) 29.5, [place] % (Auto) 10.3 H, Eos % (Auto) 4.1, Baso % (Auto) 0.5, Absolute Neuts (auto) 3.4, Absolute Lymphs (auto) 1.80, Nucleated RBC % 0, Sodium 142, Potassium 3.8, Chloride 107, Carbon Dioxide 33.0 H, Anion Gap 2 L, BUN 13, Creatinine 0.70, Estim Creat Clear Calc 45.68, Est GFR (MDRD) Af Amer 102, Est GFR (MDRD) Non-Af 85, BUN/Creatinine Ratio 18.7, Glucose 95, Calcium 8.9, Phosphorus 3.1, Magnesium 2.3, Total Bilirubin 0.40, AST 15, ALT 13, Alkaline Phosphatase 98, Total Protein 6.8, Albumin 3.0 L, Globulin 3.8, Albumin/Globulin Ratio 0.8 L, TSH 0.47 Micro: Microbiology 09/18/23 17:30 Mucosa - Nose SARS-CoV-2, Influenza & RSV (PCR) - Final Radiography Diagnostic Testing: Radiology Impression Chest X-Ray 09/18/23 17:53 IMPRESSION: Hyperaeration. Electronically Signed: Elliott Segundo DO at 18:06 EST Reading Location ID and State: [facility] / [place] Tel [phone], Service support , Physical Exam Const alert and no apparent distress HEENT head/scalp atraumatic Resp normal respiratory effort, no retractions, no use of accessory muscles and clear to auscultation bilaterally Cardio regular rate, regular rhythm, S1 normal heart sound and S2 normal heart sound GI normal to inspection, nondistended, normoactive bowel sounds, soft to palpation and non-tender Neuro Sensorium / Orientation: awake and alert Assessment & Plan Assessment/Plan (1) Hypoxia: PLAN: Plan Acute hypoxia * CXR unremarkable. * COVID/flu/RSV is negative. Resp panel pending * Started on empiric furosemide. * Echo ordered. Last echocardiogram from 02/16/2022 shows an EF of 65%, moderate mitral valve calcification with trivial mitral valve insufficiency, right ventricular systolic pressure of 34 mmHg and indeterminate diastolic dysfunction * Check home oxygen. * Suspect COPD exacerbation. She will require 2 l with rest and 3 with activity. Patient is ambulatory in home and in the community and requires home oxygen with portability. Elevated troponin * Patient has chronically elevated troponin levels * Check echocardiogram * Patient has had 2 cardiac catheterizations due to troponin elevation both were clean in 2018 and again in May 2021 * Follow up w cardiology as outpt, unless new changes on echo. Chronic conditions: * History of TIA/stroke-Continue Coumadin with adjustments as noted below- Continue risk factor modification * PAF-INR is subtherapeutic at 1.7-Patient is currently taking Coumadin Friday, Friday, , Friday, and Friday-With subtherapeutic INR we will add a Friday dose at 3 mg and monitor-Continue home [id number] INR * Hypertension with elevated blood pressure-Blood pressure was elevated however this was on admission and may be related to being in the emergency department- Will continue to monitor but may need up titration of medication if she is consistently elevated-Continue home carvedilol 12.5 mg twice daily-As needed hydralazine for systolic blood pressuregreater than 160 * Hyperlipidemia-Continue home statin * Hypothyroidism-Continue home levothyroxine-Check TSH * History of GERD-Currently on no medication-Monitor * History of sick sinus syndrome-Pacemaker in place * History of breast cancer-No current issues-Patient with history of right mastectomy * Suspected dementia-During my evaluation patient seem to have significant memory difficulty however she was alert and oriented VTE prophylaxis: enoxparin until INR therapuetic. CODE STATUS -Full code Charges/Coding Visit Charges Inpatient E&M: 07519 Subs Hosp L2
[2023-09-19] MEDS: Enoxaparin 40 MG/0.4 ML Syringe SC (09:04)
[2023-09-19] MEDS: Cyanocobalamin 500 MCG Tablet 1000 MCG PO (09:04)
[2023-09-19] MEDS: Potassium Chloride Oral Tablet 10 MEQ PO (09:04)
[2023-09-19] MEDS: Loratadine 10 MG Tablet PO (09:04)
[2023-09-19 10:44] LABS: Prothrombin Time (Protime)PT. 23.2 SECONDS (11.7-14.9)
[2023-09-19] MEDS: predniSONE 20 MG Tablet 40 MG PO (11:08)
--- NOTE | 2023-09-19 14:16 | CASEMGMT ---
Discharge Planning Updates faxed to [facility]. Sindhu Chairez, Discharge Planning Asst.
--- NOTE | 2023-09-19 14:42 | CASEMGMT ---
HERMANN spoke with patient's son Philip. The plan is for patient to return to [place]. Patient will need O2 and Philip is okay with [employer]. It is also being recommended by therapy that patient has continued therapy. [facility] uses [facility]. HERMANN called [facility] and made a referral for PT/OT. They will see patient Friday. RN PHYLLIS is working on setting up O2 for patient. Plan: d/c back to [place] with [facility] PT/OT and [employer] O2. Michaela Dill [employer]
--- NOTE | 2023-09-19 14:55 | DS.PCM_ITS ---
Providers Date of Admission: 09/18/23 Primary Care Physician: Dr. Elmo Burdick, DO Reason For Visit: ACUTE HYPOXIA Diagnosis Discharge Diagnosis (1) Hypoxia: Status: Acute Code(s): R09.02 - Hypoxemia Plan Acute COPD exacerbation causing acute hypoxia * CXR unremarkable. * COVID/flu/RSV is negative. Resp panel pending * Started on empiric furosemide. * Echo ordered. Last echocardiogram from 02/16/2022 shows an EF of 65%, moderate mitral valve calcification with trivial mitral valve insufficiency, right ventricular systolic pressure of 34 mmHg and indeterminate diastolic dysfunction * Check home oxygen. * Suspect COPD exacerbation. She will require 2 l with rest and 3 with activity. Patient is ambulatory in home and in the community and requires home oxygen with portability. * Prednisone burst. Elevated troponin * Patient has chronically elevated troponin levels * Check echocardiogram * Patient has had 2 cardiac catheterizations due to troponin elevation both were clean in 2018 and again in May 2021 * Follow up w cardiology as outpt Chronic conditions: * History of TIA/stroke-Continue Coumadin with adjustments as noted below- Continue risk factor modification * PAF-INR is subtherapeutic at 1.7-Patient is currently taking Coumadin Friday, Friday, , Friday, and Friday-With subtherapeutic INR we will add a Friday dose at 3 mg and monitor-Continue home [id number] INR * Hypertension with elevated blood pressure-Blood pressure was elevated however this was on admission and may be related to being in the emergency department- Will continue to monitor but may need up titration of medication if she is consistently elevated-Continue home carvedilol 12.5 mg twice daily-As needed hydralazine for systolic blood pressuregreater than 160 * Hyperlipidemia-Continue home statin * Hypothyroidism-Continue home levothyroxine-Check TSH * History of GERD-Currently on no medication-Monitor * History of sick sinus syndrome-Pacemaker in place * History of breast cancer-No current issues-Patient with history of right mastectomy * Suspected dementia- VTE prophylaxis: enoxparin until INR therapuetic. CODE STATUS -Full code Patient be discharged back to the [facility] in stable condition. Medications at Discharge Home Medications atorvastatin 20 mg tablet 20 mg PO QHS cholesterol 08/20/13 cyanocobalamin (vitamin B-12) 1,000 mcg tablet 1,000 mcg PO DAILY supplement 11/02/18 potassium chloride 10 mEq tablet,extended release 10 meq PO DAILY potassium 11/02/18 levothyroxine 75 mcg tablet 75 mcg PO DAILY thyroid 04/08/19 loratadine 10 mg tablet 10 mg PO DAILY allergies 06/19/21 carvedilol 12.5 mg tablet 12.5 mg PO BID #180 tabs 10/18/21 levothyroxine 37.5 mcg capsule 37.5 mcg PO DAILY 09/18/23 warfarin 3 mg tablet 3 mg PO DAILY 09/18/23 acetaminophen 325 mg tablet 1,000 mg (3.0769 x 325 mg) PO Q8H PRN PRN Pain 1-10 Or Fever>100.7 #0 tabs 09/19/23 albuterol sulfate 90 mcg/actuation aerosol inhaler 1 inh inhalation Q6H #6.7 grams 09/19/23 prednisone 20 mg tablet 40 mg (2 x 20 mg) PO BREAKFAST #8 tabs 09/19/23 Hospital Course Operations None Procedures None Summary of Care Provided Minutes Spent on Discharge: 32 Hospital Course: Patient presents with shortness of breath. Patient had viral studies including respiratory panel, COVID-19 and influenza and RSV which were all negative. Patient had hyperinflated airways on her x-rays is concerning, given her extensive smoking history, that this could be a COPD exacerbation. Patient will be started on prednisone burst 40 mg daily for 5 days. Patient also have albuterol metered-dose inhaler available as needed. Patient will require oxygen at home. Patient is ambulatory in home and in the community and requires home oxygen with portability. Weight / BMI Weight Weight: 58.4 kg Body Mass Index (BMI) 20.1 ABG / Lab / Microbiology Data 09/19/23 06:00 09/19/23 06:00 Laboratory: Laboratory Results - last 24 hr 09/18/23 17:35: WBC 5.9, RBC 4.44, Hgb 12.9, Hct 41.9, MCV 94.4, MCH 29.1, MCHC 30.8 L, RDW Std Deviation 45.7 H, RDW Coeff of Duc 13.2, Plt Count 214, MPV 9.3, Immature Gran % (Auto) 0.200, Neut % (Auto) 56.3, Lymph % (Auto) 31.9, [place] % (Auto) 8.1, Eos % (Auto) 3.2, Baso % (Auto) 0.3, Absolute Neuts (auto) 3.3, Absolute Lymphs (auto) 1.88, Nucleated RBC % 0, PT 19.9 H, INR 1.7, D-Dimer Quant (PE/DVT) 0.43, Sodium 142, Potassium 4.5, Chloride 112 H, Carbon Dioxide 34.0 H, Anion Gap -4 L, BUN 15, Creatinine 0.64, Estim Creat Clear Calc 44.58, Est GFR (MDRD) Af Amer 113, Est GFR (MDRD) Non-Af 93, BUN/Creatinine Ratio 23.4 H, Glucose 123 H, Calcium 9.2, Troponin I High Sens 203 H*, B-Natriuretic Peptide 256.8 H 09/18/23 19:45: Troponin I High Sens 193 H* 09/18/23 23:13: Troponin I High Sens 206 H* 09/19/23 06:00: WBC 6.1, RBC 4.34, Hgb 12.7, Hct 39.3, MCV 90.6, MCH 29.3, MCHC 32.3, RDW Std Deviation 43.9, RDW Coeff of Duc 13.2, Plt Count 218, MPV 9.7, Immature Gran % (Auto) 0.200, Neut % (Auto) 55.4, Lymph % (Auto) 29.5, [place] % (Auto) 10.3 H, Eos % (Auto) 4.1, Baso % (Auto) 0.5, Absolute Neuts (auto) 3.4, Absolute Lymphs (auto) 1.80, Nucleated RBC % 0, Sodium 142, Potassium 3.8, Chloride 107, Carbon Dioxide 33.0 H, Anion Gap 2 L, BUN 13, Creatinine 0.70, Estim Creat Clear Calc 45.68, Est GFR (MDRD) Af Amer 102, Est GFR (MDRD) Non-Af 85, BUN/Creatinine Ratio 18.7, Glucose 95, Calcium 8.9, Phosphorus 3.1, Magnesium 2.3, Total Bilirubin 0.40, AST 15, ALT 13, Alkaline Phosphatase 98, Total Protein 6.8, Albumin 3.0 L, Globulin 3.8, Albumin/Globulin Ratio 0.8 L, TSH 0.47 09/19/23 09:53: PT 23.2 H, INR 2.0 Microbiology: Microbiology 09/19/23 06:59 Mucosa - Nose Respiratory Panel (PCR) - Final 09/18/23 17:30 Mucosa - Nose SARS-CoV-2, Influenza & RSV (PCR) - Final Radiography Diagnostic Testing: Radiology Impression Chest X-Ray 09/18/23 17:53 IMPRESSION: Hyperaeration. Electronically Signed: Elliott Segundo DO at 18:06 EST Reading Location ID and State: [facility] / [place] Tel [phone], Service support , D/C Instructions Discharge Diet: Low fat / Low cholesterol Meaningful Use Info Meaningful Use Diagnoses (Choose all that apply): None applicable Discharge Plan Admission Admit Date/Time: 09/18/23 20:59 Primary Reason for Your Visit: COPD exacerbation Attending Provider: Dheeraj Small Primary Care Provider: Elmo Burdick Consulting Providers: [facility] Discharge Orders/Prescriptions Prescriptions: New acetaminophen 325 mg Tablet 1,000 mg PO Q8H PRN PRN (Reason: Pain 1-10 Or Fever>100.7) Qty: 0 0RF prednisone 20 mg Tablet 40 mg PO BREAKFAST Qty: 8 0RF albuterol sulfate 90 mcg/actuation HFA aerosol inhaler 1 inh inhalation Q6H Qty: 6.7 0RF Continued levothyroxine 75 mcg tablet 75 mcg PO DAILY Rx Instructions: TWTHFSS loratadine 10 mg tablet 10 mg PO DAILY carvedilol 12.5 mg tablet 12.5 mg PO BID Qty: 180 3RF Rx Instructions: must administer with a meal/food atorvastatin 20 MG tablet 20 mg PO QHS Patient Comments: CHOLESTEROL MEDICATION cyanocobalamin (vitamin B-12) 1,000 MCG tablet 1,000 mcg PO DAILY potassium chloride 10 MEQ tablet extended release 10 meq PO DAILY Patient Comments: TAKE 1 TABLET BY MOUTH EVERY DAY warfarin 3 mg tablet 3 mg PO DAILY Rx Instructions: TWTHSS levothyroxine 37.5 mcg capsule 37.5 mcg PO DAILY Rx Instructions: FRIDAY Referrals / Follow Up: Elmo Burdick DO [Primary Care Provider] - Within 2 Weeks [facility] [Provider Group] - Within 1 Month [facility] [Provider Group] - Within 3 Months Disposition Disposition (needs filled in before D/C Order can be placed): NonSkilled NH/Intermed Care Charges/Coding Visit Charges Inpatient E&M: 14624 Disch Hosp >30min
--- NOTE | 2023-09-19 15:09 | PHA.DC.MR.R ---
Pharmacy [facility] Reconciliation Pharmacy Service has performed discharge medication reconciliation for this patient. The patient's discharge medication list was reviewed for discrepancies and discrepancies were resolved. Medications at Discharge Home Medications atorvastatin 20 mg tablet 20 mg PO QHS cholesterol 08/20/13 cyanocobalamin (vitamin B-12) 1,000 mcg tablet 1,000 mcg PO DAILY supplement 11/02/18 potassium chloride 10 mEq tablet,extended release 10 meq PO DAILY potassium 11/02/18 levothyroxine 75 mcg tablet 75 mcg PO DAILY thyroid 04/08/19 loratadine 10 mg tablet 10 mg PO DAILY allergies 06/19/21 carvedilol 12.5 mg tablet 12.5 mg PO BID #180 tabs 10/18/21 levothyroxine 37.5 mcg capsule 37.5 mcg PO DAILY 09/18/23 warfarin 3 mg tablet 3 mg PO DAILY 09/18/23 acetaminophen 325 mg tablet 1,000 mg (3.0769 x 325 mg) PO Q8H PRN PRN Pain 1-10 Or Fever>100.7 #0 tabs 09/19/23 albuterol sulfate 90 mcg/actuation aerosol inhaler 1 inh inhalation Q6H #6.7 grams 09/19/23 prednisone 20 mg tablet 40 mg (2 x 20 mg) PO BREAKFAST #8 tabs 09/19/23
--- NOTE | 2023-09-19 15:11 | CASEMGMT ---
MARGARET FERGUSON updated that patient will need [place] at [facility] and per SW son prefers [facility]. Script received and referral sent to [facility] via [facility]. MARGARET FERGUSON updated SW.
--- NOTE | 2023-09-19 15:44 | NURSING ---
Report called to nurse Godoy for pt to return to [facility].
== END 2023-09-19 16:29 | disposition home or self-care (01) | DRG 191 ==
LOC: ED 19:14 → PCU 21:14
PROVIDERS: Nurse Practitioner; Admitting Provider Internal Medicine; Emergency Provider Emergency Medicine; PCP Student in an Organized Health Care Education/Training Program
DX: J44.1 Chronic obstructive pulmonary disease with (acute) exacerbation (principal); I42.8 Other cardiomyopathies; I49.5 Sick sinus syndrome; F03.90 Unspecified dementia, unspecified severity, without behavioral disturbance, psychotic disturbance, mood disturbance, and anxiety; I48.0 Paroxysmal atrial fibrillation; I10 Essential (primary) hypertension; E03.9 Hypothyroidism, unspecified; E78.5 Hyperlipidemia, unspecified; K21.9 Gastro-esophageal reflux disease without esophagitis; I25.2 Old myocardial infarction; R09.02 Hypoxemia; R77.8 Other specified abnormalities of plasma proteins; Z95.0 Presence of cardiac pacemaker; Z90.11 Acquired absence of right breast and nipple; Z79.01 Long term (current) use of anticoagulants; Z79.899 Other long term (current) drug therapy; Z85.3 Personal history of malignant neoplasm of breast; Z86.73 Personal history of transient ischemic attack (TIA), and cerebral infarction without residual deficits; Z87.891 Personal history of nicotine dependence
CPT/HCPCS: 36415; 71045; 80048; 80053; 83735; 83880; 84100; 84443; 84484; 85025; 85379; 85610; 87631; 87633; 93005; 93306; 94640; 94668; 97162; 97166; 99252; 99285; Q9957; A4216; C8929; G0463; J1940

== ENCOUNTER 2024-01-27 09:11 | Inpatient (IN) | payer MEDICARE, OTHER, SELFPAY ==
[2024-01-27] VITALS (22 sets, daily range): BP systolic 98–180; BP diastolic 67–133; PULSE 60–100; RESP 16–29; TEMP 36.1–37; O2SAT 92–98; BMI 20.3; BMI 21.1
--- NOTE | 2024-01-27 09:18 | ED.VIS.DYS ---
HPI History of Present Illness Chief Complaint: Shortness of Breath [facility] Medical History Acute GI bleeding Anticoagulated on Coumadin Atrial fibrillation with RVR Back pain Cerebrovascular disease Chronic antral gastritis CVA (cerebral vascular accident) Elevated blood pressure reading in office with white coat syndrome, without diagnosis of hypertension Elevated troponin (06/16/20) Elevated troponin Elevation of cardiac enzymes Essential (primary) hypertension Gastric polyp History of breast cancer History of non-ST elevation myocardial infarction (NSTEMI) (05/23/21) History of TIA (transient ischemic attack) (06/16/20) History of vasculitis Hypercoagulable state Hyperlipidemia Hypokalemia Hypothyroidism Lower gastrointestinal bleeding Multiple premature ventricular complexes Non-ischemic cardiomyopathy Orthostatic hypotension Osteoarthritis of spine Paroxysmal atrial fibrillation Patent foramen ovale Pre-syncope Right bundle branch block (RBBB) Sick sinus syndrome Stenosis of left carotid artery Syncope Vasculitis Home Medications ?Medication ?Instructions ?Recorded ?Last Taken ?Type atorvastatin 20 mg tablet 20 mg PO QHS cholesterol 08/20/13 03/29/21 History cyanocobalamin (vitamin B-12) 1,000 mcg PO DAILY supplement 11/02/18 03/30/21 History 1,000 mcg tablet potassium chloride 10 mEq 10 meq PO DAILY potassium 11/02/18 03/30/21 History tablet,extended release levothyroxine 75 mcg tablet 75 mcg PO SUTUWETHFRSA thyroid 04/08/19 03/30/21 History loratadine 10 mg tablet 10 mg PO DAILY allergies 06/19/21 Unknown History carvedilol 12.5 mg tablet 12.5 mg PO BID blood pressure #180 10/18/21 Unknown Rx tabs warfarin 3 mg tablet 3 mg PO QPM 09/18/23 Unknown History acetaminophen 325 mg tablet 650 mg PO .Q4 PRN Pain 1-10 Or 01/27/24 Unknown History Fever>100.7 acetaminophen 650 mg rectal 650 mg [place] Q4H PRN fever or pain 01/27/24 Unknown History suppository aluminum-mag hydroxide-simethicone 30 ml PO Q4H PRN indigestion 01/27/24 Unknown History 200 mg-200 mg-20 mg/5 mL oral susp (Advanced Antacid-Antigas) bisacodyl 10 mg rectal suppository 10 mg [place] DAILY PRN constipation 01/27/24 Unknown History levothyroxine 75 mcg tablet 37.5 mcg PO MO 01/27/24 Unknown History loperamide 2 mg capsule 4 mg PO DAILY PRN loose stool 01/27/24 Unknown History (Anti-Diarrheal (loperamide)) magnesium hydroxide 400 mg/5 mL 30 ml PO DAILY PRN constipation 01/27/24 Unknown History oral suspension (Milk of Magnesia) polyethylene glycol 3350 17 17 g PO DAILY 01/27/24 Unknown History gram/dose oral powder (ClearLax) Allergy/AdvReac Type Severity Reaction Status Date / Time omeprazole Allergy Severe Swelling Verified 01/27/24 09:14 lansoprazole Allergy Intermediate edema Verified 01/27/24 09:14 levofloxacin (From Levaquin) Allergy Angioedema Verified 01/27/24 09:14 lisinopril Allergy Swelling Verified 01/27/24 09:14 Penicillins Allergy Itching Verified 01/27/24 09:14 Sulfa (Sulfonamide Allergy Angioedema Verified 01/27/24 09:14 Antibiotics) amlodipine AdvReac Severe severe Verified 01/27/24 09:14 hypotension Family History Father Myocardial infarction Sister CAD (coronary artery disease) Stents Brother CVA (cerebral vascular accident) Surgical History History of colonoscopy (08/2018) History of esophagogastroduodenoscopy (EGD) (08/2018) History of left heart catheterization (05/23/21) History of open reduction and internal fixation (ORIF) procedure History of permanent cardiac 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) History of right mastectomy Social History (Updated 09/18/23 @ 21:[address] Libertad Hall DO) household members: other details: Twin sister housing: assisted living facility Smoking Status: Former smoker Tobacco: How many years used: 20 how long ago did patient quit smokin years ago second hand exposure: No alcohol intake: current alcohol intake frequency: holidays/special occasions only substance use type: does not use caffeine: No EXAM Physical Exam Const Vital Signs: 01/27/24 09:14 01/27/24 09:17 01/27/24 09:17 Temperature 97.8 F 98.6 F Temperature Source Temporal Temporal Pulse Rate 60 60 Respiratory Rate 20 H 20 H Respiratory Effort Normal Respiratory Depth Normal Respiratory Pattern Normal Blood Pressure 170/83 H 170/83 H Blood Pressure Mean 112 112 Pulse Ox 93 94 Oxygen Delivery Method Room Air Room Air Room Air Oxygen Flow Rate (L/min) 01/27/24 09:22 01/27/24 10:17 01/27/24 10:40 Temperature 97.8 F Temperature Source Temporal Pulse Rate 60 60 Respiratory Rate 16 18 Respiratory Effort Respiratory Depth Respiratory Pattern Blood Pressure 164/78 H Blood Pressure Mean 106 Pulse Ox 98 Oxygen Delivery Method Room Air Room Air Oxygen Flow Rate (L/min) 01/27/24 10:45 01/27/24 11:00 01/27/24 11:00 Temperature 97 F L Temperature Source Temporal Pulse Rate 60 77 69 Respiratory Rate 22 H 20 H 22 H Respiratory Effort Respiratory Depth Respiratory Pattern Blood Pressure 162/133 H 177/68 H 174/79 H Blood Pressure Mean 140 104 103 Pulse Ox 98 Oxygen Delivery Method Nasal Cannula Oxygen Flow Rate (L/min) 2 01/27/24 11:15 01/27/24 11:30 01/27/24 11:30 Temperature Temperature Source Pulse Rate 95 63 Respiratory Rate 21 H 25 H Respiratory Effort Respiratory Depth Respiratory Pattern Blood Pressure 150/74 H 150/74 H Blood Pressure Mean 96 96 Pulse Ox 95 Oxygen Delivery Method Oxygen Flow Rate (L/min) 01/27/24 11:54 01/27/24 12:02 01/27/24 12:03 Temperature Temperature Source Pulse Rate 100 85 Respiratory Rate 29 H 23 H Respiratory Effort Respiratory Depth Respiratory Pattern Blood Pressure 150/115 H Blood Pressure Mean 127 Pulse Ox Oxygen Delivery Method Oxygen Flow Rate (L/min) 01/27/24 12:15 01/27/24 12:30 01/27/24 12:45 Temperature Temperature Source Pulse Rate 66 60 60 Respiratory Rate 23 H 19 H 18 Respiratory Effort Respiratory Depth Respiratory Pattern Blood Pressure 153/70 H Blood Pressure Mean 93 Pulse Ox Oxygen Delivery Method Oxygen Flow Rate (L/min) 01/27/24 13:00 01/27/24 13:10 Temperature 97.6 F L Temperature Source Pulse Rate 63 81 Respiratory Rate 27 H 20 H Respiratory Effort Respiratory Depth Respiratory Pattern Blood Pressure 98/67 177/68 H Blood Pressure Mean 77 104 Pulse Ox 95 Oxygen Delivery Method Oxygen Flow Rate (L/min) MDM MDM MDM Narrative Medical decision making narrative: HISTORY OF PRESENT ILLNESS: 88-year-old female presents with initial chief complaint of shortness of breath per EMS. Patient denies any shortness of breath or chest pain to me. Denies any dizziness. She stated she went to eat breakfast which is the best meal of the day she noted she felt less then hungry and may be a little bit nauseous. She notes spitting up at this time. Denies any vomiting. Denies any abdominal pain. Per Nurse at [place] patient was not feeling well, complained of needing to have a bowel movement. Notes Dr. Carrera (MS physician) was concerned about ?. Wanted her to be evaluating. Notes cough. REVIEW OF SYSTEMS: Pertinent positives: denies any symptoms Pertinent negatives: dizziness, BALDERAS, SOB, CP, bleeding diathesis, melena, diarrhea PHYSICAL EXAM: Nursing triage notes reviewed, Vital signs reviewed Constitutional: please see [facility] HENT: MMM Eyes: Pupils equal round and reactive to light, Extraocular muscles intact Neck: No stridor, no JVD, full neck ROM Lungs: Clear to auscultation, No wheezing or rales. No increased work of breathing, no conversational dyspnea, no accessory muscle use, no nasal flaring. No respiratory distress noted Heart: Regular rate and rhythm, No murmurs, No rubs and No gallops, 2+ distal pulses (radial, femoral, posterior tibial) in all extremities Abdomen: Soft, there is no tenderness, rigidity, rebound or guarding, no obvious peritoneal signs, no palpable pulsatile abdominal masses, no auscultated abdominal bruit : No CVAT Extremities: No edema Neuro: Alert and oriented x3, neuro exam at baseline, cranial nerves II through XII are intact. 5 of 5 strength in upper and lower extremities in flexion extension. Intact sensation to light touch in upper and lower extremity dermatomes. No truncal or extremity ataxia. No dysdiadochokinesia. 2+ reflexes in upper and lower extremities. No meningeal signs. Negative Babinski. NIH of 0. Skin: No rash or lesions noted MEDICAL DECISION MAKING: Chief Complaint: Dyspnea External records reviewed: Last hospitalization September 2023 for COPD exacerbation, elevated troponin Factors affecting care: COPD on 2 to 3 L at baseline, history of A-fib, CVA on Coumadin Social determinants of health: residential resident, prior tobacco abuse History obtained from others: EMS, NH Consults: Internal medicine Goals of care discussion: DNR-CCA MDM Narrative: Patient was initially hypertensive, otherwise she was hemodynamically stable saturating 93% on room air I considered the following differential diagnosis: COPD exacerbation, pneumonia, anemia, arrhythmia, coagulopathy, PE ALL IMAGES (IF OBTAINED) HAVE BEEN PERSONALLY REVIEWED AND INTERPRETED BY MYSELF. Initial troponin elevated c concerning for myocardial ischemia this may be related to new oxygen requirement and is demand ischemia rather than plaque rupture as evidenced by her nonischemic EKG and lack of chest pain Patient's BNP was elevated consistent with volume overload and increased ventricular stretch BMP without evidence of significant electrolyte abnormalities, no anion gap, no acute kidney injury. INR slightly supratherapeutic at 3.3 CBC without leukocytosis, severe anemia, no thrombocytopenia. CT of the chest is negative for acute pulmonary embolism The synthesis of the patient's history, physical exam, labs images suggest demand ischemia secondary to hypoxia. Given patient's new oxygen requirement she will need admission for ongoing oxygen therapy and possibly initiation at home as well as biomarker trending and possibly cardiology consultation. I did discuss case with Dr. Rodriguez who recommended admission to the PCU The patient and/or family, caregivers express understanding. The patient and/or family, caregivers agrees with the plan. Shared decision making: I will have a discussion with the patient and or visitors regarding risk/benefits of further testing or admission. They will be made aware of of the risk/benefits inherent in this decision they will be given the opportunity to voice understanding. Total critical care time today provided was at least 0 minutes. This excludes separately billable procedures. Critical care time (if documented) is secondary to the patient having high probability of clinically significant/life threatening deterioration in the patient's condition which required my urgent intervention. Impression: 1. Dyspnea 2. Elevated troponin (demand ischemia) 3. Supratherapeutic INR Dispo: Admit This note was generated with [employer] dictation software. It may contain incorrect words, spelling, and punctuation that were not noted in review of the chart prior to signing. Lab Data Labs: Laboratory Results - last 24 hr 01/27/24 01/27/24 09:23 09:30 WBC 4.7 RBC 4.49 Hgb 13.0 Hct 40.8 MCV 90.9 MCH 29.0 MCHC 31.9 L RDW Std Deviation 42.7 RDW Coeff of Duc 12.9 Plt Count 238 MPV 9.0 Immature Gran % (Auto) 0.200 Neut % (Auto) 58.0 Lymph % (Auto) 29.9 [place] % (Auto) 7.2 Eos % (Auto) 4.3 Baso % (Auto) 0.4 Absolute Neuts (auto) 2.7 Absolute Lymphs (auto) 1.40 Nucleated RBC % 0 PT 33.3 H INR 3.3 Sodium 138 Potassium 4.1 Chloride 108 H Carbon Dioxide 30.0 Anion Gap 0 L BUN 10 Creatinine 0.70 Estim Creat Clear Calc 45.20 Est GFR (MDRD) Af Amer 101 Est GFR (MDRD) Non-Af 84 BUN/Creatinine Ratio 14.3 Glucose 135 H Calcium 9.2 Troponin I High Sens 131 H* B-Natriuretic Peptide 206.9 H Radiography Diagnostic Testing: Clinical Impression(s) from Imaging Studies Chest CTA 01/27/24 11:32 IMPRESSION: No evidence of pulmonary embolism. Presence of pulmonary emphysema on CT is an independent risk factor for lung cancer. Consider LDCT lung cancer screening in the future. Electronically Signed: Tarah Altman MD at 12:24 EDT , Discharge Plan Disposition Disposition: Acute Care Hospital [facility] Discharge Date/Time: 01/27/24 14:09
[2024-01-27 09:33] LABS: Absolute Neutrophil Count 2.7 X10^3/uL (2.0-7.7); Basophil# 0.02 X10^3/uL; Basophil% 0.4 % (0-1); Eosinophils% 4.3 % (0-5); Hematocrit 40.8 % (37-47); Lymphocyte % 29.9 % (19-41); Mean Corp Hgb Conc 31.9 g/dL (32-36); Mean Corpuscular Volume 90.9 fL (81-99); Monocyte# 0.34 X10^3/uL; Monocyte% 7.2 % (0-10); NRBC Flagged by Analyzer 0 % (0-5); Neutrophil # 2.72 X10^3/uL (2.7-7.7); Platelet Count 238 K/mm3 (150-450); RBC Distribution Width CV 12.9 % (11.6-14.6); RBC Distribution Width SD 42.7 fl (35.1-43.9); Red Blood Count 4.49 M/mm3 (4.2-5.4); White Blood Count 4.7 K/mm3 (4.4-11.0)
[2024-01-27 09:47] LABS: International Normalized Ratio 3.3; Prothrombin Time (Protime)PT. 33.3 SECONDS (11.7-14.9)
[2024-01-27 10:12] LABS: Anion Gap 0 (5-15); BUN 10 mg/dL (7-18); BUN/Creat Ratio 14.3 RATIO (10-20); Calcium,Total 9.2 mg/dL (8.5-10.1); Chloride 108 mmol/L (98-107); EST Glomerular Filtration Rate 84 mL/min (>60); Est Glom Filt Rate - Afr Amer 101 mL/min (>60); Glucose 135 mg/dL (74-106); Potassium 4.1 mmol/L (3.5-5.1); Sodium Level 138 mmol/L (136-145); Troponin-I HS 131 pg/mL (3.0-54.0)
--- NOTE | 2024-01-27 10:12 | ED.RN ---
critical trop of 131, MD aware
[2024-01-27 11:20] LABS: BNP,B-Type NATRIURETIC PEPTIDE 206.9 pg/mL (0-100)
--- NOTE | 2024-01-27 11:32 | CT_ITS ---
HISTORY: hypoxia, elevated trop r/o PE. TECHNIQUE: CT angiogram of the chest was performed after the intravenous administration of 100 mL Isovue-370. Post-processing of the angiographic images was performed with multiplanar reformation and 3D reconstruction. Individualized dose optimization techniques were used for this CT. 1101 images. COMPARISON: CR to 124. FINDINGS: CENTRAL AIRWAYS: Patent. LUNGS: Mild emphysema with biapical and bibasilar scarring. Bullae in the midlungs. PLEURA: No pneumothorax or significant pleural effusion. HEART/PERICARDIUM: Heart within normal limits in size with pacemaker in place. No pericardial effusion. PULMONARY ARTERIES: No filling defect. AORTA/VESSELS: No thoracic aortic aneurysm or dissection flap. Atherosclerosis present. MEDIASTINUM/LEODAN: No pathologically enlarged lymph nodes. CHEST WALL: Osteopenia and degenerative change. Right mastectomy. UPPER ABDOMEN: Unremarkable. CT/CTA Chest W/WO Contrast IMPRESSION: No evidence of pulmonary embolism. Presence of pulmonary emphysema on CT is an independent risk factor for lung cancer. Consider LDCT lung cancer screening in the future. Electronically Signed: Tarah Altman MD at 12:24 EDT ,
--- NOTE | 2024-01-27 13:22 | NURSING ---
PCU OLEGHE ELEVATED TROP
[2024-01-27] MEDS: Ipratropium/Albuterol Sulfate 3 ML AMPUL.NEB INHALATION ×2 (13:53→20:06)
--- NOTE | 2024-01-27 14:40 | PCM.HP.STD ---
HPI - General General Date of Admission: 01/27/24 Date of Service: 01/27/24 Chief Complaint: Shortness of breath HPI Narrative LUCRETIA LEAL, is a 88 F with history of COPD, hypertension and stable vascular disease and atrial fibrillation and resides in a long-term and who presents with 1 day history of shortness of breath. Patient currently tells me that she feels fine and denies any active symptoms. Denies any chest pain or nausea or vomiting and denies any wheezing. Hoping to be able to go back to see assisted living tomorrow. [facility] Medical History Elevated troponin Cerebrovascular disease Anticoagulated on Coumadin Elevation of cardiac enzymes Vasculitis Hypercoagulable state Patent foramen ovale Non-ischemic cardiomyopathy Stenosis of left carotid artery Sick sinus syndrome Paroxysmal atrial fibrillation Essential (primary) hypertension Right bundle branch block (RBBB) Multiple premature ventricular complexes CVA (cerebral vascular accident) Pre-syncope Elevated troponin (06/16/20) Atrial fibrillation with RVR Elevated blood pressure reading in office with white coat syndrome, without diagnosis of hypertension History of non-ST elevation myocardial infarction (NSTEMI) (05/23/21) Hyperlipidemia Chronic antral gastritis Hypokalemia Gastric polyp Back pain Osteoarthritis of spine Syncope History of vasculitis Acute GI bleeding Orthostatic hypotension Lower gastrointestinal bleeding History of TIA (transient ischemic attack) (06/16/20) Hypothyroidism History of breast cancer Home Medications ?Medication ?Instructions ?Recorded ?Last Taken ?Type atorvastatin 20 mg tablet 20 mg PO QHS cholesterol 08/20/13 01/26/24 History cyanocobalamin (vitamin B-12) 1,000 mcg PO DAILY supplement 11/02/18 01/27/24 History 1,000 mcg tablet potassium chloride 10 mEq 10 meq PO DAILY potassium 11/02/18 01/27/24 History tablet,extended release levothyroxine 75 mcg tablet 75 mcg PO SUTUWETHFRSA thyroid 04/08/19 01/27/24 History loratadine 10 mg tablet 10 mg PO DAILY allergies 06/19/21 01/27/24 History carvedilol 12.5 mg tablet 12.5 mg PO BID blood pressure #180 10/18/21 01/27/24 Rx tabs warfarin 3 mg tablet 3 mg PO QPM blood thinner 09/18/23 01/26/24 History acetaminophen 325 mg tablet 650 mg PO .Q4 PRN Pain 1-10 Or 01/27/24 Unknown History Fever>100.7 acetaminophen 650 mg rectal 650 mg [place] Q4H PRN fever or pain 01/27/24 Unknown History suppository aluminum-mag hydroxide-simethicone 30 ml PO Q4H PRN indigestion 01/27/24 Unknown History 200 mg-200 mg-20 mg/5 mL oral susp (Advanced Antacid-Antigas) bisacodyl 10 mg rectal suppository 10 mg [place] DAILY PRN constipation 01/27/24 Unknown History levothyroxine 75 mcg tablet 37.5 mcg PO MO for thyroid 01/27/24 01/26/24 History loperamide 2 mg capsule 4 mg PO DAILY PRN loose stool 01/27/24 Unknown History (Anti-Diarrheal (loperamide)) magnesium hydroxide 400 mg/5 mL 30 ml PO DAILY PRN constipation 01/27/24 Unknown History oral suspension (Milk of Magnesia) polyethylene glycol 3350 17 17 g PO DAILY constipation 01/27/24 01/27/24 History gram/dose oral powder (ClearLax) Allergy/AdvReac Type Severity Reaction Status Date / Time omeprazole Allergy Severe Swelling Verified 01/27/24 16:03 lansoprazole Allergy Intermediate edema Verified 01/27/24 16:03 levofloxacin (From Levaquin) Allergy Angioedema Verified 01/27/24 16:03 lisinopril Allergy Swelling Verified 01/27/24 16:03 Penicillins Allergy Itching Verified 01/27/24 16:03 Sulfa (Sulfonamide Allergy Angioedema Verified 01/27/24 16:03 Antibiotics) amlodipine AdvReac Severe severe Verified 01/27/24 16:03 hypotension Family History Father Myocardial infarction Sister CAD (coronary artery disease) Stents Brother CVA (cerebral vascular accident) Surgical History History of left heart catheterization (05/23/21) History of permanent cardiac 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) History of open reduction and internal fixation (ORIF) procedure History of esophagogastroduodenoscopy (EGD) (08/2018) History of colonoscopy (08/2018) History of right mastectomy Social History household members: other details: Twin sister housing: assisted living facility Smoking Status: Former smoker Tobacco: How many years used: 20 how long ago did patient quit smokin years ago second hand exposure: No alcohol intake: current alcohol intake frequency: holidays/special occasions only substance use type: does not use caffeine: No ROS ROS Narrative Denies any chest pain abdominal pain or nausea vomiting. All other systems reviewed and essentially negative as above and part of the history Vital Signs Vital Signs Vital Signs: 01/27/24 09:14 01/27/24 09:17 01/27/24 09:17 Temperature 36.6 C 37.0 C Temperature Source Temporal Temporal Pulse Rate 60 60 Respiratory Rate 20 H 20 H Respiratory Effort Normal Respiratory Depth Normal Respiratory Pattern Normal Blood Pressure 170/83 H 170/83 H Blood Pressure Mean 112 112 Blood Pressure Source Blood Pressure Position Blood Pressure Location Pulse Ox 93 94 Oxygen Delivery Method Room Air Room Air Room Air Oxygen Flow Rate (L/min) 01/27/24 09:22 01/27/24 10:17 01/27/24 10:40 Temperature 36.6 C Temperature Source Temporal Pulse Rate 60 60 Respiratory Rate 16 18 Respiratory Effort Respiratory Depth Respiratory Pattern Blood Pressure 164/78 H Blood Pressure Mean 106 Blood Pressure Source Blood Pressure Position Blood Pressure Location Pulse Ox 98 Oxygen Delivery Method Room Air Room Air Oxygen Flow Rate (L/min) 01/27/24 10:45 01/27/24 11:00 01/27/24 11:00 Temperature 36.1 C L Temperature Source Temporal Pulse Rate 60 77 69 Respiratory Rate 22 H 20 H 22 H Respiratory Effort Respiratory Depth Respiratory Pattern Blood Pressure 162/133 H 177/68 H 174/79 H Blood Pressure Mean 140 104 103 Blood Pressure Source Blood Pressure Position Blood Pressure Location Pulse Ox 98 Oxygen Delivery Method Nasal Cannula Oxygen Flow Rate (L/min) 2 01/27/24 11:15 01/27/24 11:30 01/27/24 11:30 Temperature Temperature Source Pulse Rate 95 63 Respiratory Rate 21 H 25 H Respiratory Effort Respiratory Depth Respiratory Pattern Blood Pressure 150/74 H 150/74 H Blood Pressure Mean 96 96 Blood Pressure Source Blood Pressure Position Blood Pressure Location Pulse Ox 95 Oxygen Delivery Method Oxygen Flow Rate (L/min) 01/27/24 11:54 01/27/24 12:02 01/27/24 12:03 Temperature Temperature Source Pulse Rate 100 85 Respiratory Rate 29 H 23 H Respiratory Effort Respiratory Depth Respiratory Pattern Blood Pressure 150/115 H Blood Pressure Mean 127 Blood Pressure Source Blood Pressure Position Blood Pressure Location Pulse Ox Oxygen Delivery Method Oxygen Flow Rate (L/min) 01/27/24 12:15 01/27/24 12:30 01/27/24 12:45 Temperature Temperature Source Pulse Rate 66 60 60 Respiratory Rate 23 H 19 H 18 Respiratory Effort Respiratory Depth Respiratory Pattern Blood Pressure 153/70 H Blood Pressure Mean 93 Blood Pressure Source Blood Pressure Position Blood Pressure Location Pulse Ox Oxygen Delivery Method Oxygen Flow Rate (L/min) 01/27/24 13:00 01/27/24 13:10 01/27/24 13:55 Temperature 36.4 C L Temperature Source Pulse Rate 63 81 64 Respiratory Rate 27 H 20 H 18 Respiratory Effort Respiratory Depth Respiratory Pattern Normal Blood Pressure 98/67 177/68 H Blood Pressure Mean 77 104 Blood Pressure Source Blood Pressure Position Blood Pressure Location Pulse Ox 95 Oxygen Delivery Method Oxygen Flow Rate (L/min) 01/27/24 13:55 01/27/24 14:06 01/27/24 14:15 Temperature 36.4 C L Temperature Source Oral Pulse Rate 66 Respiratory Rate 16 Respiratory Effort Respiratory Depth Respiratory Pattern Blood Pressure 180/91 H Blood Pressure Mean 120 Blood Pressure Source Monitor Blood Pressure Position Semi-Fowlers Blood Pressure Location Left Arm Pulse Ox 94 97 Oxygen Delivery Method Nasal Cannula Nasal Cannula Room Air Oxygen Flow Rate (L/min) 2 2 Weight Weight: 58.9 kg Body Mass Index (BMI) 20.3 Physical Exam Narrative General exam. Elderly man, not ill appearing and not in any acute distress does not appear dyspneic HEENT. Oral mucosa moist no pallor or jaundice Neck. Neck is supple. Lungs. Diminished entry but otherwise clear with no wheezing. Heart. First and second sounds heard no murmurs Abdomen. Soft and full nontender Extremities. No pedal edema [employer]. Conscious and alert times x 3. Cranial 2-12 grossly intact. Results Medical Records Data Attestation: I reviewed the patient's medical records Lab / Micro Data Attestation: I reviewed the patient's lab results. 01/27/24 09:23 01/27/24 09:23 Labs: Laboratory Results - last 24 hr 01/27/24 09:23: WBC 4.7, RBC 4.49, Hgb 13.0, Hct 40.8, MCV 90.9, MCH 29.0, MCHC 31.9 L, RDW Std Deviation 42.7, RDW Coeff of Duc 12.9, Plt Count 238, MPV 9.0, Immature Gran % (Auto) 0.200, Neut % (Auto) 58.0, Lymph % (Auto) 29.9, [place] % (Auto) 7.2, Eos % (Auto) 4.3, Baso % (Auto) 0.4, Absolute Neuts (auto) 2.7, Absolute Lymphs (auto) 1.40, Nucleated RBC % 0, Sodium 138, Potassium 4.1, Chloride 108 H, Carbon Dioxide 30.0, Anion Gap 0 L, BUN 10, Creatinine 0.70, Estim Creat Clear Calc 45.20, Est GFR (MDRD) Af Amer 101, Est GFR (MDRD) Non-Af 84, BUN/Creatinine Ratio 14.3, Glucose 135 H, Calcium 9.2, Troponin I High Sens 131 H*, B-Natriuretic Peptide 206.9 H 01/27/24 09:30: PT 33.3 H, INR 3.3 Imaging Radiology Impression Chest CTA 01/27/24 11:32 IMPRESSION: No evidence of pulmonary embolism. Presence of pulmonary emphysema on CT is an independent risk factor for lung cancer. Consider LDCT lung cancer screening in the future. Electronically Signed: Tarah Altman MD at 12:24 EDT , Assessment & Plan Assessment/Plan (1) Hypoxia: PLAN: Plan 1. Mild COPD exacerbation. Will start patient on scheduled inhaled bronchodilators with DuoNebs 3 times daily. IV Solu-Medrol 40 mg twice a day. Monitor for 24 hours and if stable can be discharged back to assisted living facility. Evaluate for home oxygen on day of discharge. 2. Chronic atrial fibrillation. Rate is controlled. Patient is anticoagulated with Coumadin. INR slightly supratherapeutic at 3.3. Hold Coumadin today. Resume tomorrow. 3. Hypertension. Blood pressure elevated at this time. Will resume home regimen of antihypertensives. Adjust as necessary. Charges/Coding Visit Charges Inpatient E&M: 68030 Init Hosp L3
--- NOTE | 2024-01-27 17:10 | NURSING ---
01/27/24@8069- CALLED NILAY LAZARO AT [facility] AND GAVE UPDATE.
[2024-01-27 22:37] LABS: Magnesium 2.1 mg/dL (1.6-2.6)
[2024-01-28] VITALS (7 sets, daily range): BP systolic 116–138; BP diastolic 63–85; PULSE 70–81; RESP 18–20; TEMP 36.1–36.6; O2SAT 89–95
[2024-01-28] MEDS: Acetaminophen 325 MG Tablet 650 MG PO (02:44)
[2024-01-28 06:24] LABS: Absolute Lymphocyte Count 1.03 X10^3/uL (0.83-4.51); Absolute Neutrophil Count 4.5 X10^3/uL (2.0-7.7); Basophil# 0.01 X10^3/uL; Basophil% 0.2 % (0-1); Hematocrit 40.8 % (37-47); Hemoglobin 13.1 g/dL (12.0-15.0); Lymphocyte # 1.03 X10^3/ul (0.83-4.51); Lymphocyte % 18.2 % (19-41); Mean Corp Hgb Conc 32.1 g/dL (32-36); Mean Corpuscular Hgb 28.9 pg (27.0-32.0); Mean Corpuscular Volume 89.9 fL (81-99); Mean Platelet Vol. 9.9 fl (6.2-12.0); Monocyte% 1.8 % (0-10); NRBC Flagged by Analyzer 0 % (0-5); Neutrophil # 4.49 X10^3/uL (2.7-7.7); Neutrophil % 79.4 % (47-70); Platelet Count 248 K/mm3 (150-450); RBC Distribution Width SD 42.7 fl (35.1-43.9); Red Blood Count 4.54 M/mm3 (4.2-5.4); White Blood Count 5.7 K/mm3 (4.4-11.0)
[2024-01-28 07:00] LABS: ALB/GLOB Ratio 0.8 RATIO (0.9-2.4); AST(SGOT) 14 U/L (15-37); Alanine Aminotransfer ALT/SGPT 12 U/L (13-56); Alkaline Phosphatase 96 U/L (45-117); Anion Gap 6 (5-15); BUN 14 mg/dL (7-18); BUN/Creat Ratio 19.2 RATIO (10-20); Calcium,Total 9.1 mg/dL (8.5-10.1); Chloride 108 mmol/L (98-107); Creatinine, Serum 0.73 mg/dL (0.55-1.02); EST Glomerular Filtration Rate 80 mL/min (>60); Est Glom Filt Rate - Afr Amer 97 mL/min (>60); Globulin 3.6 g/dL (2.2-4.2); Glucose 155 mg/dL (74-106); Potassium 4.1 mmol/L (3.5-5.1); Protein, Total 6.6 g/dL (6.4-8.2); Sodium Level 140 mmol/L (136-145)
[2024-01-28] MEDS: Ipratropium/Albuterol Sulfate 3 ML AMPUL.NEB INHALATION ×2 (07:34→13:40)
[2024-01-28] MEDS: Potassium Chloride Oral Tablet 10 MEQ PO (08:52)
[2024-01-28] MEDS: Carvedilol 12.5 MG Tablet PO (08:52)
--- NOTE | 2024-01-28 10:13 | CASEMGMT ---
Discharge Planning Updates faxed to [facility]. Fax confirmation rec'd. Sindhu Chairez DC Planning Asst.
--- NOTE | 2024-01-28 12:20 | CHAPLAIN ---
Type of Pastoral Visit _x__ Initial Visit ___ Follow-up Visit ___ On-call Visit ___ General Patient Visit ___ Spiritual Assessment ___ Family Conference ___ Bereavement ___ Rapid Response ___ Code Blue ___ Other (describe below) Pastoral Care Referral From _x__ Patient ___ Family ___ Nurse ___ Physician ___ Rpg Programmer Analyst ___ Char Puller ___ Other (describe below) Sacrament/Intervention _x__ Active listening ___ Anointing ___ Alevism ___ Bereavement ___ Communion _x__ Celeste exploration ___ _x__ Life review _x__ Prayer ___ Reconciliation ___ Sacrament of Sick _x__ Supportive presence ___ Wedding ___ Other (describe below) Pastoral Comments patient is welcoming and eagerly talks about the importance of celeste and that her was a good baptist man and is now in Heaven; pt states that she is sure of where she is going too; pt has a twin sister that she lives with at [place] and this is an ideal situation for her; pt talks some on different topics; pt recalls names of her children although has some hesitation to remember details about them; pt welcomes the prayer and presence of this magnesium mill operator
--- NOTE | 2024-01-28 14:26 | DCINST_ITS ---
Discharge Instructions Diet Discharge Diet: No restrictions Activity Discharge Activity: Return to Normal Activity Weight Bearing Status: Full weight bearing Follow Up Care Test Results: Test results from this visit will be discussed in further detail at your follow- up appointment, if applicable. Discharge Plan Admission Admit Date/Time: 01/27/24 13:22 Primary Reason for Your Visit: dyspnea Attending Provider: Francisco López Primary Care Provider: Elmo Burdick Consulting Providers: Yoel Rodriguez Discharge Orders/Prescriptions Prescriptions: New budesonide-formoterol [Symbicort] 160-4.5 mcg/actuation HFA aerosol inhaler 2 puff inhalation BID Qty: 10.2 1RF albuterol sulfate [ProAir HFA] 90 mcg/actuation HFA aerosol inhaler 2 puff inhalation Q6H PRN (Reason: shortness of breath or wheezing) Qty: 8.5 0RF prednisone 20 mg tablet 20 mg PO DAILY Qty: 7 0RF Rx Instructions: one daily for seven days, then stop Continued levothyroxine 75 mcg tablet 75 mcg PO SUTUWETHFRSA loratadine 10 mg tablet 10 mg PO DAILY carvedilol 12.5 mg tablet 12.5 mg PO BID Qty: 180 3RF Rx Instructions: must administer with a meal/food atorvastatin 20 MG tablet 20 mg PO QHS cyanocobalamin (vitamin B-12) 1,000 MCG tablet 1,000 mcg PO DAILY potassium chloride 10 MEQ tablet extended release 10 meq PO DAILY warfarin 3 mg tablet 3 mg PO QPM alum-mag hydroxide-simeth [Advanced Antacid-Antigas] 200-200-20 mg/5 mL suspension 30 ml PO Q4H PRN (Reason: indigestion) bisacodyl 10 mg suppository 10 mg [place] DAILY PRN (Reason: constipation) levothyroxine 75 mcg tablet 37.5 mcg PO MO loperamide [Anti-Diarrheal (loperamide)] 2 mg capsule 4 mg PO DAILY PRN (Reason: loose stool) Rx Instructions: DO NOT EXCEED 8 TABS IN 24 HOURS polyethylene glycol 3350 [ClearLax] 17 gram/dose powder 17 g PO DAILY magnesium hydroxide [Milk of Magnesia] 400 mg/5 mL suspension 30 ml PO DAILY PRN (Reason: constipation) acetaminophen 325 mg Tablet 650 mg PO .Q4 PRN (Reason: Pain 1-10 Or Fever>100.7) Discontinued acetaminophen 650 mg suppository 650 mg [place] Q4H PRN (Reason: fever or pain) Referrals / Follow Up: Zachary Carrera MD [Non-Staff] - See Referral Note (at scheduled visit) Elmo Burdick DO [Primary Care Provider] - Disposition Disposition (needs filled in before D/C Order can be placed): Assisted Living
--- NOTE | 2024-01-28 14:45 | PCM.DC.SUM ---
Providers Date of Admission: 01/27/24 Date of Discharge: 01/28/24 Primary Care Physician: Dr. Elmo Burdick DO Reason For Visit: COPD EXACERBATION Diagnosis Discharge Diagnosis (1) Hypoxia: Status: Acute Code(s): R09.02 - Hypoxemia Plan 1. Dyspnea secondary to chronic obstructive pulmonary disease #2 elevated troponin-etiology unknown #3 essential hypertension #4 hypothyroidism #5 paroxysmal atrial fibrillation Medications at Discharge Home Medications atorvastatin 20 mg tablet 20 mg PO QHS cholesterol 08/20/13 cyanocobalamin (vitamin B-12) 1,000 mcg tablet 1,000 mcg PO DAILY supplement 11/02/18 potassium chloride 10 mEq tablet,extended release 10 meq PO DAILY potassium 11/02/18 levothyroxine 75 mcg tablet 75 mcg PO SUTUWETHFRSA thyroid 04/08/19 loratadine 10 mg tablet 10 mg PO DAILY allergies 06/19/21 carvedilol 12.5 mg tablet 12.5 mg PO BID blood pressure #180 tabs 10/18/21 warfarin 3 mg tablet 3 mg PO QPM blood thinner 09/18/23 acetaminophen 325 mg tablet 650 mg PO .Q4 PRN Pain 1-10 Or Fever>100.7 01/27/24 aluminum-mag hydroxide-simethicone 200 mg-200 mg-20 mg/5 mL oral susp (Advanced Antacid-Antigas) 30 ml PO Q4H PRN indigestion 01/27/24 bisacodyl 10 mg rectal suppository 10 mg [place] DAILY PRN constipation 01/27/24 levothyroxine 75 mcg tablet 37.5 mcg PO MO for thyroid 01/27/24 loperamide 2 mg capsule (Anti-Diarrheal (loperamide)) 4 mg PO DAILY PRN loose stool 01/27/24 magnesium hydroxide 400 mg/5 mL oral suspension (Milk of Magnesia) 30 ml PO DAILY PRN constipation 01/27/24 polyethylene glycol 3350 17 gram/dose oral powder (ClearLax) 17 g PO DAILY constipation 01/27/24 albuterol sulfate 90 mcg/actuation aerosol inhaler (ProAir HFA) 2 puff inhalation Q6H PRN shortness of breath or wheezing #8.5 grams 01/28/24 budesonide-formoterol HFA 160 mcg-4.5 mcg/actuation aerosol inhaler (Symbicort) 2 puff inhalation BID #10.2 grams 01/28/24 prednisone 20 mg tablet 20 mg PO DAILY #7 tabs 01/28/24 Hospital Course Operations None Procedures None Summary of Care Provided Minutes Spent on Discharge: 31 Hospital Course: This 88-year-old white female was seen in the emergency room at [facility] after being sent in from her assisted living facility due to complaints of dyspnea. Her PCP requested she be evaluated in the emergency room. Workup in the ER revealed a normal CBC, INR was slightly high at 3.3, troponin was elevated, pulse ox on room air was 93%, a CTA of her chest was obtained which showed no evidence of pulmonary embolism but there was noted to be pulmonary emphysema. Patient was admitted to PCU for mild COPD exacerbation, IV Solu-Medrol was administered as well as bronchodilators, this examiner evaluated the patient on 01/28/2024, she was not hypoxic on room air and did not require oxygen on ambulation. This examiner did not feel that she had a COPD exacerbation. Patient's medical status improved faster than expected, on 01/28/2024 patient was seen and examined: On examination she appeared in good health and spirits, she does not appear to be in any distress. Vital signs as documented. Skin warm and dry and without overt rashes. Neck without JVD, thyroid appears normal, trachea is midline, neck is supple. Lungs clear, normal air movement was noted. Heart exam notable for regular rhythm, normal sounds and absence of murmurs, rubs or gallops. Abdomen unremarkable and without evidence of organomegaly, masses, or abdominal aortic enlargement, bowel sounds are present in all 4 quadrants, no abdominal tenderness was noted. Extremities nonedematous, no cyanosis was noted, no clubbing was noted. Neuro: Cranial nerves II through XII are grossly intact, no focal motor deficits were noted, sensation to light touch and pinprick is intact, motor exam 5/5 throughout. Psych: Patient is alert and oriented x3, she does not appear anxious or depressed, she does not appear agitated. Patient was discharged back to her assisted living facility in stable condition on 01/28/2024 Weight / BMI Weight Weight: 58.9 kg Body Mass Index (BMI) 21.1 ABG / Lab / Microbiology Data 01/28/24 05:36 01/28/24 05:36 Laboratory: Laboratory Results - last 24 hr 01/27/24 09:23: Magnesium 2.1 01/28/24 05:36: WBC 5.7, RBC 4.54, Hgb 13.1, Hct 40.8, MCV 89.9, MCH 28.9, MCHC 32.1, RDW Std Deviation 42.7, RDW Coeff of Duc 13.0, Plt Count 248, MPV 9.9, Immature Gran % (Auto) 0.400, Neut % (Auto) 79.4 H, Lymph % (Auto) 18.2 L, [place] % (Auto) 1.8, Eos % (Auto) 0.0, Baso % (Auto) 0.2, Absolute Neuts (auto) 4.5, Absolute Lymphs (auto) 1.03, Nucleated RBC % 0, Sodium 140, Potassium 4.1, Chloride 108 H, Carbon Dioxide 26.0, Anion Gap 6, BUN 14, Creatinine 0.73, Estim Creat Clear Calc 45.20, Est GFR (MDRD) Af Amer 97, Est GFR (MDRD) Non-Af 80, BUN/Creatinine Ratio 19.2, Glucose 155 H, Calcium 9.1, Total Bilirubin 0.30, AST 14 L, ALT 12 L, Alkaline Phosphatase 96, Total Protein 6.6, Albumin 3.0 L, Globulin 3.6, Albumin/Globulin Ratio 0.8 L D/C Instructions Discharge Diet: No restrictions Weight Bearing Status: Full weight bearing Meaningful Use Info Meaningful Use Meaningful Use Diagnoses (Choose all that apply): None applicable Ischemic Stroke Statin Dosing Therapy Reference: STATIN DOSE THERAPY REFERENCE: * Patients > 75 years receive moderate or high dose statin therapy. * Patients 75 years or YOUNGER should receive HIGH intensity statin dose unless contraindicated. You will be required to document reason for non-treatment if statin daily dose does not meet guidelines. HIGH DOSE STATIN THERAPY DAILY Atorvastatin > than or = to 40 mg Rosuvastatin > than or = to 20 mg Amlodipine + Atorvastatin > than or = to 2.5/40 mg Ezetimibe + Simvastatin 10/80 mg Simvastatin 80mg Discharge Plan Admission Admit Date/Time: 01/27/24 13:22 Primary Reason for Your Visit: dyspnea Attending Provider: Francisco López Primary Care Provider: Elmo Burdick Consulting Providers: Yoel Rodriguez Discharge Orders/Prescriptions Prescriptions: New budesonide-formoterol [Symbicort] 160-4.5 mcg/actuation HFA aerosol inhaler 2 puff inhalation BID Qty: 10.2 1RF albuterol sulfate [ProAir HFA] 90 mcg/actuation HFA aerosol inhaler 2 puff inhalation Q6H PRN (Reason: shortness of breath or wheezing) Qty: 8.5 0RF prednisone 20 mg tablet 20 mg PO DAILY Qty: 7 0RF Rx Instructions: one daily for seven days, then stop Continued levothyroxine 75 mcg tablet 75 mcg PO SUTUWETHFRSA loratadine 10 mg tablet 10 mg PO DAILY carvedilol 12.5 mg tablet 12.5 mg PO BID Qty: 180 3RF Rx Instructions: must administer with a meal/food atorvastatin 20 MG tablet 20 mg PO QHS cyanocobalamin (vitamin B-12) 1,000 MCG tablet 1,000 mcg PO DAILY potassium chloride 10 MEQ tablet extended release 10 meq PO DAILY warfarin 3 mg tablet 3 mg PO QPM alum-mag hydroxide-simeth [Advanced Antacid-Antigas] 200-200-20 mg/5 mL suspension 30 ml PO Q4H PRN (Reason: indigestion) bisacodyl 10 mg suppository 10 mg [place] DAILY PRN (Reason: constipation) levothyroxine 75 mcg tablet 37.5 mcg PO MO loperamide [Anti-Diarrheal (loperamide)] 2 mg capsule 4 mg PO DAILY PRN (Reason: loose stool) Rx Instructions: DO NOT EXCEED 8 TABS IN 24 HOURS polyethylene glycol 3350 [ClearLax] 17 gram/dose powder 17 g PO DAILY magnesium hydroxide [Milk of Magnesia] 400 mg/5 mL suspension 30 ml PO DAILY PRN (Reason: constipation) acetaminophen 325 mg Tablet 650 mg PO .Q4 PRN (Reason: Pain 1-10 Or Fever>100.7) Discontinued acetaminophen 650 mg suppository 650 mg [place] Q4H PRN (Reason: fever or pain) Referrals / Follow Up: Zachary Carrera MD [Non-Staff] - See Referral Note (at scheduled visit ) Elmo Burdick DO [Primary Care Provider] - 03/29/24 1:20 pm Disposition Disposition (needs filled in before D/C Order can be placed): Assisted Living Charges/Coding Visit Charges Inpatient E&M: 36024 Disch Hosp >30min
--- NOTE | 2024-01-28 15:55 | CASEMGMT ---
Addendum entered by Karolina Goodson 01/28/24 16:09: MARGARET FERGUSON received call back from [facility], able to accept with start of care for Friday. MARGARET FERGUSON reviewed oxygen testing, patient does not qualify for home oxygen. SW and discharge demand planning manager notified. Original Note: MARGARET FERGUSON updated by SW that patient will need PT at discharge and prefers [facility] as she has had them in the past. MARGARET FERGUSON called [facility] and made referral, awaiting acceptance.
--- NOTE | 2024-01-28 16:10 | PHA.DC_ITS ---
Pharmacy [place] Med Reconciliation Pharmacy Service has performed discharge medication reconciliation for this patient. The patient's discharge medication list was reviewed for discrepancies and discrepancies were resolved. Medications at Discharge Home Medications atorvastatin 20 mg tablet 20 mg PO QHS cholesterol 08/20/13 cyanocobalamin (vitamin B-12) 1,000 mcg tablet 1,000 mcg PO DAILY supplement 11/02/18 potassium chloride 10 mEq tablet,extended release 10 meq PO DAILY potassium 11/02/18 levothyroxine 75 mcg tablet 75 mcg PO SUTUWETHFRSA thyroid 04/08/19 loratadine 10 mg tablet 10 mg PO DAILY allergies 06/19/21 carvedilol 12.5 mg tablet 12.5 mg PO BID blood pressure #180 tabs 10/18/21 warfarin 3 mg tablet 3 mg PO QPM blood thinner 09/18/23 acetaminophen 325 mg tablet 650 mg PO .Q4 PRN Pain 1-10 Or Fever>100.7 01/27/24 aluminum-mag hydroxide-simethicone 200 mg-200 mg-20 mg/5 mL oral susp (Advanced Antacid-Antigas) 30 ml PO Q4H PRN indigestion 01/27/24 bisacodyl 10 mg rectal suppository 10 mg [place] DAILY PRN constipation 01/27/24 levothyroxine 75 mcg tablet 37.5 mcg PO MO for thyroid 01/27/24 loperamide 2 mg capsule (Anti-Diarrheal (loperamide)) 4 mg PO DAILY PRN loose stool 01/27/24 magnesium hydroxide 400 mg/5 mL oral suspension (Milk of Magnesia) 30 ml PO DAILY PRN constipation 01/27/24 polyethylene glycol 3350 17 gram/dose oral powder (ClearLax) 17 g PO DAILY constipation 01/27/24 albuterol sulfate 90 mcg/actuation aerosol inhaler (ProAir HFA) 2 puff inhalat ion Q6H PRN shortness of breath or wheezing #8.5 grams 01/28/24 budesonide-formoterol HFA 160 mcg-4.5 mcg/actuation aerosol inhaler (Symbicort) 2 puff inhalation BID #10.2 grams 01/28/24 prednisone 20 mg tablet 20 mg PO DAILY #7 tabs 01/28/24
--- NOTE | 2024-01-28 16:31 | CASEMGMT ---
Addendum entered by Sindhu Chairez 01/28/24 16:38: Fax confirmation rec'd. Sindhu Chairez DC Planning Asst. Original Note: Discharge Planning Discharge instructions, transport time, and HH information faxed to [facility]. Patients granddaughter will pick her up around 5:30. [facility] accepted with [facility] Friday. Sindhu Chairez DC Planning Asst.
== END 2024-01-28 17:48 | disposition skilled nursing facility (03) | DRG 191 ==
LOC: ED 09:50 → PCU 01-28 06:55
PROVIDERS: Hospitalist; Admitting Provider Internal Medicine; Emergency Provider Emergency Medicine; PCP Student in an Organized Health Care Education/Training Program; Visit Provider Internal Medicine
DX: J44.1 Chronic obstructive pulmonary disease with (acute) exacerbation (principal); I42.8 Other cardiomyopathies; I48.20 Chronic atrial fibrillation, unspecified; J43.9 Emphysema, unspecified; I10 Essential (primary) hypertension; E03.9 Hypothyroidism, unspecified; E78.5 Hyperlipidemia, unspecified; I25.2 Old myocardial infarction; Z87.891 Personal history of nicotine dependence; Z79.899 Other long term (current) drug therapy; Z79.01 Long term (current) use of anticoagulants; Z86.73 Personal history of transient ischemic attack (TIA), and cerebral infarction without residual deficits; Z95.0 Presence of cardiac pacemaker
CPT/HCPCS: 36415; 71275; 80048; 80053; 83735; 83880; 84484; 85025; 85610; 93005; 94640; 97162; 97166; 99284; Q9967; A4216; J2405

== ENCOUNTER 2024-04-21 12:37 | Emergency (ER) | payer MEDICARE, OTHER, SELFPAY ==
[2024-04-21 12:38] VITALS: BP 160/81; PULSE 61; TEMP 36.2; O2SAT 92
--- NOTE | 2024-04-21 12:47 | ED.VIS.GI ---
HPI HPI - GI History of Present Illness Chief Complaint: Abd Pain Abdominal Pain/Flank Pain Onset: Today Context: Sudden Onset Timing: Continuous Quality: Sharp and - (Heavy) Location: LUQ Worsened by: Nothing Relieved by: Nothing Nausea/Vomiting/Emesis GI Symptom: Negative for Nausea or Vomiting Diarrhea/Melena/Hematochezia GI Symptom: Negative for Diarrhea, Melena or Hematochezia Associated Symptoms Associated Symptoms: Negative for Dysuria, Frequency or Hematuria Narrative Narrative: Patient presents with abdominal pain that began today. Patient states it began rather suddenly. Patient states that it began approximately an hour prior to arrival. Patient states it is over the left upper abdomen. Patient describes her pain as sharp and heavy. Patient states nothing makes it better nothing makes it worse. Patient denies any radiation of the pain. Patient denies any nausea or vomiting. Patient denies any diarrhea, melena, or hematochezia. Patient denies any urinary complaints. [facility] Medical History Hypoxia Elevated troponin Cerebrovascular disease Anticoagulated on Coumadin Elevation of cardiac enzymes Vasculitis Hypercoagulable state Patent foramen ovale Non-ischemic cardiomyopathy Stenosis of left carotid artery Sick sinus syndrome Paroxysmal atrial fibrillation Essential (primary) hypertension Right bundle branch block (RBBB) Multiple premature ventricular complexes CVA (cerebral vascular accident) Pre-syncope Elevated troponin (06/16/20) Atrial fibrillation with RVR Elevated blood pressure reading in office with white coat syndrome, without diagnosis of hypertension History of non-ST elevation myocardial infarction (NSTEMI) (05/23/21) Hyperlipidemia Chronic antral gastritis Hypokalemia Gastric polyp Back pain Osteoarthritis of spine Syncope History of vasculitis Acute GI bleeding Orthostatic hypotension Lower gastrointestinal bleeding History of TIA (transient ischemic attack) (06/16/20) Hypothyroidism History of breast cancer Home Medications ?Medication ?Instructions ?Recorded ?Last Taken ?Type atorvastatin 20 mg tablet 20 mg PO QHS cholesterol 08/20/13 01/26/24 History cyanocobalamin (vitamin B-12) 1,000 mcg PO DAILY supplement 11/02/18 01/27/24 History 1,000 mcg tablet potassium chloride 10 mEq 10 meq PO DAILY potassium 11/02/18 01/27/24 History tablet,extended release levothyroxine 75 mcg tablet 75 mcg PO SUTUWETHFRSA thyroid 04/08/19 01/27/24 History loratadine 10 mg tablet 10 mg PO DAILY allergies 06/19/21 01/27/24 History carvedilol 12.5 mg tablet 12.5 mg PO BID blood pressure #180 10/18/21 01/27/24 Rx tabs warfarin 3 mg tablet 3 mg PO QPM blood thinner 09/18/23 01/26/24 History acetaminophen 325 mg tablet 650 mg PO .Q4 PRN Pain 1-10 Or 01/27/24 04/21/24 History Fever>100.7 aluminum-mag hydroxide-simethicone 30 ml PO Q4H PRN indigestion 01/27/24 Unknown History 200 mg-200 mg-20 mg/5 mL oral susp (Advanced Antacid-Antigas) bisacodyl 10 mg rectal suppository 10 mg KS DAILY PRN constipation 01/27/24 Unknown History levothyroxine 75 mcg tablet 37.5 mcg PO MO for thyroid 01/27/24 01/26/24 History loperamide 2 mg capsule 4 mg PO DAILY PRN loose stool 01/27/24 Unknown History (Anti-Diarrheal (loperamide)) magnesium hydroxide 400 mg/5 mL 30 ml PO DAILY PRN constipation 01/27/24 Unknown History oral suspension (Milk of Magnesia) polyethylene glycol 3350 17 17 g PO DAILY constipation 01/27/24 01/27/24 History gram/dose oral powder (ClearLax) albuterol sulfate 90 mcg/actuation 2 puff inhalation Q6H PRN 01/28/24 Unknown Rx aerosol inhaler (ProAir HFA) shortness of breath or wheezing #8.5 grams budesonide-formoterol HFA 160 2 puff inhalation BID #10.2 grams 01/28/24 Unknown Rx mcg-4.5 mcg/actuation aerosol inhaler (Symbicort) prednisone 20 mg tablet 20 mg PO DAILY #7 tabs 01/28/24 Unknown Rx Allergy/AdvReac Type Severity Reaction Status Date / Time omeprazole Allergy Severe Swelling Verified 04/21/24 12:46 lansoprazole Allergy Intermediate edema Verified 04/21/24 12:46 levofloxacin (From Levaquin) Allergy Angioedema Verified 04/21/24 12:46 lisinopril Allergy Swelling Verified 04/21/24 12:46 Penicillins Allergy Itching Verified 04/21/24 12:46 Sulfa (Sulfonamide Allergy Angioedema Verified 01/27/24 16:03 Antibiotics) amlodipine AdvReac Severe severe Verified 04/21/24 12:46 hypotension Family History Father Myocardial infarction Sister CAD (coronary artery disease) Stents Brother CVA (cerebral vascular accident) Surgical History History of left heart catheterization (05/23/21) History of permanent cardiac 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) History of open reduction and internal fixation (ORIF) procedure History of esophagogastroduodenoscopy (EGD) (08/2018) History of colonoscopy (08/2018) History of right mastectomy Social History household members: other details: Twin sister housing: assisted living facility Smoking Status: Former smoker Tobacco: How many years used: 20 how long ago did patient quit smokin years ago second hand exposure: No alcohol intake: current alcohol intake frequency: holidays/special occasions only substance use type: does not use caffeine: No ROS ROS ED Constitutional Constitutional ED: Denies chills or fever(s) Eyes Eyes: Reports blurry vision ENT ENT ED: Denies rhinorrhea or sore throat Cardiovascular Cardiovascular: Denies chest pain or palpitations Respiratory/Chest Respiratory/Chest: Denies cough or dyspnea Gastrointestinal Gastrointestinal: Reports abdominal pain; Denies nausea or vomiting Genitourinary Genitourinary ED: Denies dysuria or hematuria Musculoskeletal Musculoskeletal: Denies back pain or neck pain Integumentary Denies abscess or rash Neurologic Neurologic: Denies headache(s) or weakness Allergic/Immunologic Allergic/Immunologic ED: Denies mouth swelling or urticaria EXAM Physical Exam Const Vital Signs: 04/21/24 12:38 04/21/24 14:38 04/21/24 14:38 Temperature 97.2 F L 97.6 F L Temperature Source Temporal Temporal Pulse Rate 61 67 69 Respiratory Rate 18 21 H Blood Pressure 160/81 H 160/78 H 155/87 H Blood Pressure Mean 107 105 109 Pulse Ox 92 95 92 Oxygen Delivery Method Room Air Room Air Room Air 04/21/24 15:00 04/21/24 16:21 Temperature 97.6 F L Temperature Source Pulse Rate 65 61 Respiratory Rate 23 H 20 H Blood Pressure 167/106 H 157/90 H Blood Pressure Mean 126 112 Pulse Ox 94 95 Oxygen Delivery Method Room Air Positive well nourished and well developed General Appearance ED: well developed and NAD HEENT Reports moist mucous membranes Neck supple and no JVD Resp normal respiratory effort and clear to auscultation bilaterally Cardio regular rate and regular rhythm GI non-distended Palpation: soft and tender LUQ; Negative for guarding or rebound tenderness present Neuro CN's II-XII intact bilaterally, moves all extremities and no sensory deficits noted Sensorium / Orientation: alert Motor Exam: strength 5/5 throughout Psych mental status grossly normal MDM MDM MDM Narrative Medical decision making narrative: Differential diagnosis includes gastritis, gastroenteritis, pyelonephritis, musculoskeletal pain, pneumonia, cardiac dysrhythmia, cardiac ischemia, electrolyte abnormality, and pancreatitis. EKG will be obtained to assess for cardiac dysrhythmia and cardiac ischemia. Chest x-ray will be obtained to assess for pneumonia and pleural effusion. CBC will be obtained to assess for leukocytosis and anemia. Comprehensive metabolic profile will be obtained to assess for hepatic function, renal function, and electrolyte abnormality. Lipase will be obtained to assess for pancreatitis. Urinalysis will be obtained to assess for urinary tract infection and hematuria. CT scan of the abdomen pelvis will be obtained to assess for bowel obstruction, perforation, and pancreatitis. Lab Data Attestation: I reviewed the patient's lab results. Lab results narrative: CBC was reviewed and was within normal limits. Comprehensive metabolic profile was reviewed and was essentially within normal limits. High-sensitivity troponin was reviewed and was elevated at 210. However, patient has had elevated troponins since September. Lipase was reviewed and was normal at 25. Urinalysis was reviewed. There is no evidence of urinary tract infection or hematuria. 2-hour repeat high-sensitivity troponin was 203. Labs: Laboratory Results - last 24 hr 04/21/24 04/21/24 04/21/24 12:55 14:39 14:53 WBC 6.7 RBC 4.33 Hgb 12.6 Hct 39.9 MCV 92.1 MCH 29.1 MCHC 31.6 L RDW Std Deviation 47.0 H RDW Coeff of Duc 13.9 Plt Count 229 MPV 9.7 Immature Gran % (Auto) 0.400 Neut % (Auto) 63.2 Lymph % (Auto) 24.7 [place] % (Auto) 8.1 Eos % (Auto) 3.3 Baso % (Auto) 0.3 Absolute Neuts (auto) 4.2 Absolute Lymphs (auto) 1.65 Nucleated RBC % 0 Sodium 143 Potassium 3.9 Chloride 109 H Carbon Dioxide 31.0 Anion Gap 3 L BUN 17 Creatinine 0.76 Est GFR (MDRD) Af Amer 93 Est GFR (MDRD) Non-Af 77 BUN/Creatinine Ratio 22.5 H Glucose 95 Calcium 9.3 Total Bilirubin 0.30 AST 17 ALT 20 Alkaline Phosphatase 126 H Troponin I High Sens 210 H* 203 H* Total Protein 6.7 Albumin 3.0 L Globulin 3.7 Albumin/Globulin Ratio 0.8 L Lipase 25 Urine Color Yellow Urine Clarity Sl. Cloudy Urine pH 7.0 Ur Specific [place] 1.010 Urine Protein Negative Urine Glucose (UA) Normal Urine Ketones Negative Urine Occult Blood 25 H Urine Nitrite Negative Urine Bilirubin Negative Urine Urobilinogen Normal Ur Leukocyte Esterase 25 H Urine RBC 0-5 SEEN Urine WBC 0-5 SEEN Ur Squamous Epith Cells 0-5 SEEN Urine Bacteria 1+ Urine Mucus 0 SEEN Radiography Chest X-Ray - ED: 2 View, Read by ED Physician, Read by Radiologist and No Acute Disease Diagnostic Testing: Clinical Impression(s) from Imaging Studies Abdomen/Pelvis CT 04/21/24 12:52 IMPRESSION: Findings suggestive of a small gallstone. Small cyst or hemangioma in the right lobe of the liver. Right renal cyst. Nonobstructive left intrarenal calculi. Electronically Signed: Jj Good MD at 14:32 EDT , Chest X-Ray 04/21/24 13:48 IMPRESSION: Hyperinflation. The lungs are clear. There is prominence of the central pulmonary arteries. Electronically Signed: Jj Good MD at 14:20 EDT , PA and lateral chest x-ray was obtained. There are 2 views. On my independent interpretation, lung robertson are clear. There is hyperinflation and mild prominence of the central pulmonary arteries. There is normal cardiac silhouette. Bony thorax is normal. There is no acute process noted. Radiologist also interpreted the x-ray and agrees. CT scan of the abdomen pelvis was obtained. There is a small gallstone noted in the gallbladder lumen. There is a small cyst or hemangioma in the right lobe of the liver. There is no other acute abnormality noted. This was interpreted by the radiologist and was also independently reviewed by myself. EKG Initial EKG: Attestation: I personally reviewed and interpreted this EKG as follows: Interpretation: Sinus Rhythm (66) and Non-Specific ST Changes Comments: EKG was obtained. On my independent interpretation it shows a normal sinus rhythm with a rate of 66. KS interval is normal at 186 ms. QRS interval is normal at 110 ms. QTc interval is normal at 415 ms. [place] is slightly right axis deviated at 111. There is a right bundle branch block pattern noted. There is a left posterior fascicular block pattern noted. There are no acute ST or T wave changes. Prior EKG tracings: available for review Prior: Unchanged (09/18/2023) Treatment and Re-Evaluation :: Patient was given IV fluids and aspirin here. Patient was advised of her findings. Patient was advised that this could be musculoskeletal pain since it seemed to come on whenever she tried to pull herself up in bed. Patient was instructed to continue Tylenol as needed for pain. Patient was instructed to follow-up with her primary care physician in 5 to 7 days. Patient understood and was agreeable with the plan. All questions were answered. Discharge Plan Triage Chief Complaint: Abd Pain ED Provider: Dheeraj Ogden Dx/Rx/DC Orders Clinical Impression: Abdominal pain, Elevated troponin Instructions: ED Abdominal Pain Unkn Cause Fem Prescriptions: No Action levothyroxine 75 mcg tablet 75 mcg PO SUTUWETHFRSA loratadine 10 mg tablet 10 mg PO DAILY carvedilol 12.5 mg tablet 12.5 mg PO BID Qty: 180 3RF Rx Instructions: must administer with a meal/food atorvastatin 20 MG tablet 20 mg PO QHS cyanocobalamin (vitamin B-12) 1,000 MCG tablet 1,000 mcg PO DAILY potassium chloride 10 MEQ tablet extended release 10 meq PO DAILY warfarin 3 mg tablet 3 mg PO QPM alum-mag hydroxide-simeth [Advanced Antacid-Antigas] 200-200-20 mg/5 mL suspension 30 ml PO Q4H PRN (Reason: indigestion) bisacodyl 10 mg suppository 10 mg KS DAILY PRN (Reason: constipation) levothyroxine 75 mcg tablet 37.5 mcg PO MO loperamide [Anti-Diarrheal (loperamide)] 2 mg capsule 4 mg PO DAILY PRN (Reason: loose stool) Rx Instructions: DO NOT EXCEED 8 TABS IN 24 HOURS polyethylene glycol 3350 [ClearLax] 17 gram/dose powder 17 g PO DAILY magnesium hydroxide [Milk of Magnesia] 400 mg/5 mL suspension 30 ml PO DAILY PRN (Reason: constipation) acetaminophen 325 mg Tablet 650 mg PO .Q4 PRN (Reason: Pain 1-10 Or Fever>100.7) budesonide-formoterol [Symbicort] 160-4.5 mcg/actuation HFA aerosol inhaler 2 puff inhalation BID Qty: 10.2 1RF albuterol sulfate [ProAir HFA] 90 mcg/actuation HFA aerosol inhaler 2 puff inhalation Q6H PRN (Reason: shortness of breath or wheezing) Qty: 8.5 0RF prednisone 20 mg tablet 20 mg PO DAILY Qty: 7 0RF Rx Instructions: one daily for seven days, then stop Primary Care Provider: Zachary Carrera Referrals: Elmo Burdick DO [Non-Staff] - 3-5 Days Print Language: [place] Disposition Disposition: Snf Facility Discharge Location: [facility]
--- NOTE | 2024-04-21 12:52 | EKG12_ITS ---
Test Reason : Blood Pressure : / mmHG Vent. Rate : 066 BPM Atrial Rate : 066 BPM P-R Int : 186 ms QRS Dur : 110 ms QT Int : 396 ms P-R-T Axes : 000 111 024 degrees QTc Int : 415 ms Normal sinus rhythm Right bundle branch block Left posterior fascicular block Bifascicular block Abnormal ECG Confirmed by YOLANDA CRAIG, ZEHRA ([id number]), commissioning editor ZABRINA ALEXANDER ([id number]) on 04/22/2024 1:50:00 PM Referred By: Confirmed By:ZEHRA GUERRERO MD
--- NOTE | 2024-04-21 12:52 | CT_ITS ---
STUDY: CT ABDOMEN AND PELVIS WITH CONTRAST REASON FOR EXAM: Female, 88 years old. Abdominal pain. History of breast cancer. RADIATION DOSAGE (If Supplied By Facility): CTDIvol = ( 12.28 ) mGy, DLP = ( 293.23 ) mGycm TECHNIQUE: Transaxial images were obtained from the dome of the diaphragm to the symphysis pubis without oral contrast. IV 100mL Isovue-300 was administered. Sagittal and coronal images were reconstructed. Individualized dose optimization techniques were used for this CT. COMPARISON: None. FINDINGS: Minimal linear scarring at the lung bases. Dual-chamber pacemaker is seen. Coronary artery calcification. There is a 5.4 mm hypodensity in the inferior peripheral lateral aspect of the right lobe of the liver suggestive of either a small cyst or possible hemangioma. Tiny gallstone in the gallbladder lumen. Normal spleen. Normal pancreas. Normal bilateral adrenal glands. There is a 2.3 cm x 3 cm cyst in the upper medial aspect of the right kidney. Nonobstructive left intrarenal calculi. Normal visualized stomach. Normal small intestine. There are multiple colonic diverticula consistent with diverticulosis. There is non-visualization of the appendix. There is diffuse atherosclerotic calcification of the abdominal aorta, without a demonstrated aneurysm. Normal inferior vena cava. Normal retroperitoneum. Normal urinary bladder. Small right inguinal hernia containing fat and a nondilated small bowel loop. There are degenerative changes of the visualized lumbar spine. Loss of height of the superior endplate of the L2 vertebrae. CT/Abdomen/Pelvis W IV Cont ONLY IMPRESSION: Findings suggestive of a small gallstone. Small cyst or hemangioma in the right lobe of the liver. Right renal cyst. Nonobstructive left intrarenal calculi. Electronically Signed: Jj Good MD at 14:32 EDT ,
[2024-04-21] MEDS: 0.9% Normal Saline (1000mL) 1,000 ML 999 ML IV (13:03)
[2024-04-21 13:07] LABS: Absolute Lymphocyte Count 1.65 X10^3/uL (0.83-4.51); Absolute Neutrophil Count 4.2 X10^3/uL (2.0-7.7); Basophil# 0.02 X10^3/uL; Basophil% 0.3 % (0-1); Eosinophil# 0.22 X10^3/uL; Eosinophils% 3.3 % (0-5); Hematocrit 39.9 % (37-47); Hemoglobin 12.6 g/dL (12.0-15.0); Lymphocyte # 1.65 X10^3/ul (0.83-4.51); Lymphocyte % 24.7 % (19-41); Mean Corp Hgb Conc 31.6 g/dL (32-36); Mean Corpuscular Hgb 29.1 pg (27.0-32.0); Mean Corpuscular Volume 92.1 fL (81-99); Mean Platelet Vol. 9.7 fl (6.2-12.0); Monocyte# 0.54 X10^3/uL; Monocyte% 8.1 % (0-10); NRBC Flagged by Analyzer 0 % (0-5); Neutrophil # 4.21 X10^3/uL (2.7-7.7); Neutrophil % 63.2 % (47-70); Platelet Count 229 K/mm3 (150-450); RBC Distribution Width CV 13.9 % (11.6-14.6); Red Blood Count 4.33 M/mm3 (4.2-5.4); White Blood Count 6.7 K/mm3 (4.4-11.0)
[2024-04-21 13:32] LABS: ALB/GLOB Ratio 0.8 RATIO (0.9-2.4); AST(SGOT) 17 U/L (15-37); Alanine Aminotransfer ALT/SGPT 20 U/L (13-56); Alkaline Phosphatase 126 U/L (45-117); Anion Gap 3 (5-15); BUN 17 mg/dL (7-18); BUN/Creat Ratio 22.5 RATIO (10-20); Calcium,Total 9.3 mg/dL (8.5-10.1); Chloride 109 mmol/L (98-107); Creatinine, Serum 0.76 mg/dL (0.55-1.02); EST Glomerular Filtration Rate 77 mL/min (>60); Est Glom Filt Rate - Afr Amer 93 mL/min (>60); Globulin 3.7 g/dL (2.2-4.2); Glucose 95 mg/dL (74-106); Lipase 25 U/L (13-75); Potassium 3.9 mmol/L (3.5-5.1); Protein, Total 6.7 g/dL (6.4-8.2); Sodium Level 143 mmol/L (136-145); Troponin-I HS 210 pg/mL (3.0-54.0)
[2024-04-21] MEDS: Aspirin 81 MG TAB.CHEW 324 MG PO (13:47)
--- NOTE | 2024-04-21 13:48 | RAD_ITS ---
STUDY: X-RAY CHEST REASON FOR EXAM: Female, 88 years old. Chest pain. TECHNIQUE: AP and lateral views of the chest. COMPARISON: Comparison is made with prior study dated September 18, 2023. FINDINGS: EKG electrodes are seen. There is hyperinflation of the lungs consistent with chronic obstructive lung disease (COPD). There is no demonstrated pleural abnormality. Normal size heart. A left-sided dual-chamber pacemaker is seen. Normal mediastinum and roc. There is prominence of the pulmonary hilar arteries without peripheral pulmonary vascular congestion, suggesting pulmonary hypertension. There is atherosclerotic calcification of the aortic arch with tortuosity. Normal visualized thoracic spine. Normal visualized ribs, clavicles, and shoulders. There is no demonstrated abnormality of the visualized soft tissue structures of the upper abdomen. RAD/Chest PA and Lateral IMPRESSION: Hyperinflation. The lungs are clear. There is prominence of the central pulmonary arteries. Electronically Signed: Jj Good MD at 14:20 EDT ,
[2024-04-21 14:38] VITALS: BP 155/87; BP 160/78; PULSE 67; PULSE 69; RESP 18; RESP 21; TEMP 36.4; O2SAT 92; O2SAT 95
[2024-04-21 14:45] LABS: Mucous, Urine 0 SEEN /hpf (<or=2+)
[2024-04-21 14:58] LABS: Color, Urine Yellow (Yellow); Glucose, Dipstick Normal (Normal); Ketone-Dipstick Negative (Negative); Leukocyte Esterase-Dipstick 25 /ul (Negative); Nitrite-Dipstick Negative (Negative); Occult Blood-Urine 25 /ul (Negative); Protein-Dipstick Negative (Negative); Urine Bilirubin Dipstick Negative (Negative); Urine Clarity Sl. Cloudy (Clear); Urine Urobilinogen Normal (Normal)
[2024-04-21 15:00] VITALS: BP 167/106; PULSE 65; RESP 23; O2SAT 94
[2024-04-21 15:06] LABS: Red Blood Cells-Urine 0-5 SEEN /hpf (0-5); Squamous Epithelial Cells - UA 0-5 SEEN /hpf (5-10); White Blood Cells 0-5 SEEN /hpf (0-5)
[2024-04-21 15:10] LABS: Bacteria 1+ /hpf (None Seen)
[2024-04-21 16:00] LABS: Troponin-I HS 203 pg/mL (3.0-54.0)
[2024-04-21] MEDS: Acetaminophen 325 MG Tablet 650 MG PO (16:11)
[2024-04-21 16:21] VITALS: BP 157/90; PULSE 61; RESP 20; TEMP 36.4; O2SAT 95
== END 2024-04-21 16:47 | disposition skilled nursing facility (03) ==
PROVIDERS: Emergency Provider Emergency Medicine; PCP Family Medicine; Visit Provider Emergency Medicine
DX: R10.9 Unspecified abdominal pain (principal); I42.8 Other cardiomyopathies; R79.89 Other specified abnormal findings of blood chemistry; E78.5 Hyperlipidemia, unspecified; I10 Essential (primary) hypertension; I25.2 Old myocardial infarction; Z79.899 Other long term (current) drug therapy; Z79.01 Long term (current) use of anticoagulants; Z86.73 Personal history of transient ischemic attack (TIA), and cerebral infarction without residual deficits; Z95.0 Presence of cardiac pacemaker; Z87.891 Personal history of nicotine dependence
CPT/HCPCS: 71046; 74177; 80053; 81001; 83690; 84484; 85025; 93005; 96360; 96361; 99284; J7030; Q9967; A4216

== ENCOUNTER 2024-07-07 17:36 | Emergency (ER) | payer MEDICARE, OTHER, SELFPAY ==
[2024-07-07 17:37] VITALS: BP 177/80; PULSE 71; RESP 16; TEMP 37.1; O2SAT 90; BMI 20.2
[2024-07-07 18:41] LABS: Hematocrit 36.2 % (37-47); Hemoglobin 11.4 g/dL (12.0-15.0); Mean Corp Hgb Conc 31.5 g/dL (32-36); Mean Corpuscular Hgb 29.4 pg (27.0-32.0); Mean Corpuscular Volume 93.3 fL (81-99); Platelet Count 205 K/mm3 (150-450); RBC Distribution Width CV 15.9 % (11.6-14.6); RBC Distribution Width SD 54.5 fl (35.1-43.9); Red Blood Count 3.88 M/mm3 (4.2-5.4); White Blood Count 4.9 K/mm3 (4.4-11.0)
--- NOTE | 2024-07-07 19:44 | EDS_ITS ---
HPI History of Present Illness Chief Complaint: Dental Detail of Chief Complaint: Bleeding gums Informant: patient Onset/Context/Timing Onset: Hours Context: Sudden Onset Timing: Continuous Quality: Patient is on Coumadin for atrial fibrillation. Location: Lower teeth on the left Current Severity: Mild Maximum Severity: Mild Worsened by: Patient is on anticoagulant Relieved by: Nothing Associated Symptoms Associated Symptoms: None Narrative Narrative: patient is a 88-year-old woman on Coumadin for a fibrillation. INR checked approximate week ago was 3.3. Patient [place] black or maroon-colored stool. Patient denies blood in her urine. Patient denies bruising easily. She states she was eating when her gums began to bleed. Gums are bleeding near tooth 21 through 24. These teeth are loose. She has significant periodontal disease. She has numerous teeth that are missing. She has no other complaints. Prior similar symptoms: No Recent Illness/Hospitalization: No [facility] Medical History Hypoxia Elevated troponin Cerebrovascular disease Anticoagulated on Coumadin Elevation of cardiac enzymes Vasculitis Hypercoagulable state Patent foramen ovale Non-ischemic cardiomyopathy Stenosis of left carotid artery Sick sinus syndrome Paroxysmal atrial fibrillation Essential (primary) hypertension Right bundle branch block (RBBB) Multiple premature ventricular complexes CVA (cerebral vascular accident) Pre-syncope Elevated troponin (06/16/20) Atrial fibrillation with RVR Elevated blood pressure reading in office with white coat syndrome, without diagnosis of hypertension History of non-ST elevation myocardial infarction (NSTEMI) (05/23/21) Hyperlipidemia Chronic antral gastritis Hypokalemia Gastric polyp Back pain Osteoarthritis of spine Syncope History of vasculitis Acute GI bleeding Orthostatic hypotension Lower gastrointestinal bleeding History of TIA (transient ischemic attack) (06/16/20) Hypothyroidism History of breast cancer Home Medications ?Medication ?Instructions ?Recorded ?Last Taken ?Type atorvastatin 20 mg tablet 20 mg PO QHS cholesterol 08/20/13 01/26/24 History cyanocobalamin (vitamin B-12) 1,000 mcg PO DAILY supplement 11/02/18 01/27/24 History 1,000 mcg tablet potassium chloride 10 mEq 10 meq PO DAILY potassium 11/02/18 01/27/24 History tablet,extended release levothyroxine 75 mcg tablet 75 mcg PO SUTUWETHFRSA thyroid 04/08/19 01/27/24 History loratadine 10 mg tablet 10 mg PO DAILY allergies 06/19/21 01/27/24 History carvedilol 12.5 mg tablet 12.5 mg PO BID blood pressure #180 10/18/21 01/27/24 Rx tabs warfarin 3 mg tablet 3 mg PO QPM blood thinner 09/18/23 01/26/24 History acetaminophen 325 mg tablet 650 mg PO .Q4 PRN Pain 1-10 Or 01/27/24 04/21/24 History Fever>100.7 aluminum-mag hydroxide-simethicone 30 ml PO Q4H PRN indigestion 01/27/24 Unknown History 200 mg-200 mg-20 mg/5 mL oral susp (Advanced Antacid-Antigas) bisacodyl 10 mg rectal suppository 10 mg FL DAILY PRN constipation 01/27/24 Unknown History levothyroxine 75 mcg tablet 37.5 mcg PO MO for thyroid 01/27/24 01/26/24 History loperamide 2 mg capsule 4 mg PO DAILY PRN loose stool 01/27/24 Unknown History (Anti-Diarrheal (loperamide)) magnesium hydroxide 400 mg/5 mL 30 ml PO DAILY PRN constipation 01/27/24 Unknown History oral suspension (Milk of Magnesia) polyethylene glycol 3350 17 17 g PO DAILY constipation 01/27/24 01/27/24 History gram/dose oral powder (ClearLax) albuterol sulfate 90 mcg/actuation 2 puff inhalation Q6H PRN 01/28/24 Unknown Rx aerosol inhaler (ProAir HFA) shortness of breath or wheezing #8.5 grams budesonide-formoterol HFA 160 2 puff inhalation BID #10.2 grams 01/28/24 Unknown Rx mcg-4.5 mcg/actuation aerosol inhaler (Symbicort) prednisone 20 mg tablet 20 mg PO DAILY #7 tabs 01/28/24 Unknown Rx Allergy/AdvReac Type Severity Reaction Status Date / Time omeprazole Allergy Severe Swelling Verified 04/21/24 12:46 lansoprazole Allergy Intermediate edema Verified 04/21/24 12:46 levofloxacin (From Levaquin) Allergy Angioedema Verified 04/21/24 12:46 lisinopril Allergy Swelling Verified 04/21/24 12:46 Penicillins Allergy Itching Verified 04/21/24 12:46 Sulfa (Sulfonamide Allergy Angioedema Verified 01/27/24 16:03 Antibiotics) amlodipine AdvReac Severe severe Verified 04/21/24 12:46 hypotension Family History Father Myocardial infarction Sister CAD (coronary artery disease) Stents Brother CVA (cerebral vascular accident) Surgical History History of left heart catheterization (05/23/21) History of permanent cardiac 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) History of open reduction and internal fixation (ORIF) procedure History of esophagogastroduodenoscopy (EGD) (08/2018) History of colonoscopy (08/2018) History of right mastectomy Social History household members: other details: Twin sister housing: assisted living facility Smoking Status: Former smoker Tobacco: How many years used: 20 how long ago did patient quit smokin years ago second hand exposure: No alcohol intake: current alcohol intake frequency: holidays/special occasions only substance use type: does not use caffeine: No ROS ROS ED Constitutional Constitutional ED: Denies chills, fever(s), subjective, sweats or weight loss Eyes Eyes: Denies blurry vision or change in vision ENT ENT ED: Reports other Details: HPI narrative ; Denies rhinorrhea or sore throat Cardiovascular Cardiovascular: Denies chest pain or palpitations Respiratory/Chest Respiratory/Chest: Denies cough, dyspnea or dyspnea on exertion Gastrointestinal Gastrointestinal: Denies melena, nausea or vomiting Genitourinary Genitourinary ED: Denies hematuria Hematologic/Lymphatic Hematologic/Lymphatic: Reports systems reviewed and no addt'l complaints, except as documented EXAM Physical Exam Const Vital Signs: 07/07/24 17:37 Temperature 98.7 F Temperature Source Oral Pulse Rate 71 Respiratory Rate 16 Blood Pressure 177/80 H Blood Pressure Mean 112 Pulse Ox 90 Positive well nourished and well developed General Appearance ED: well developed, NAD and pallor HEENT Reports moist mucous membranes HEENT Narrative: Patient with poor dentition gums are bleeding tooth 21 through 24. These teeth are loose. She has numerous teeth that are missing. There is no obvious dental caries or dental abscess. There is no trismus. There is no sublingual hematoma noted. Eyes PERRL and EOMs intact bilaterally General Eye ED: Negative for pale conjunctiva or scleral icterus Neck no lymphadenopathy, supple and no JVD Neck Narrative: Trachea is midline. There is no inspiratory expiratory stridor. Resp normal respiratory effort and clear to auscultation bilaterally Cardio regular rate and no murmurs Rhythm: abnormal rhythm irregularly irregular Extremity normal to inspection General Extremety ED: Negative for edema or tenderness General Extremity: Negative for edema Neuro oriented x3 and CN's II-XII intact bilaterally Sensorium / Orientation: alert Psych mental status grossly normal Skin no rashes or lesions noted, no wounds and skin turgor normal Skin Narrative: There is no bruising noted. General Skin Exam: pallor MDM MDM MDM Narrative Medical decision making narrative: Will assess CBC to assess H&H and platelet count. Also PT/INR was drawn. Lab Data Attestation: I reviewed the patient's lab results. Lab results narrative: Anemia with normal indices. Platelet count is normal. INR is 14.2. Labs: Laboratory Results - last 24 hr 07/07/24 07/07/24 18:35 19:25 WBC 4.9 RBC 3.88 L Hgb 11.4 L Hct 36.2 L MCV 93.3 MCH 29.4 MCHC 31.5 L RDW Std Deviation 54.5 H RDW Coeff of Duc 15.9 H Plt Count 205 MPV 10.0 PT Cancelled 103.0 H INR Cancelled 14.2 H* Since patient's INR is 14.2 and she has spontaneous bleeding Kcentra was ordered as well as vitamin K. Once patient has been reversed we will discharge back to long-term. Will speak with the long-term physician regarding her warfarin dose. Treatment and Re-Evaluation :: Dr. Sharma now mouth was paged. Apparently Dr. Moralez is sap pp consultant. Awaiting callback. Comments:: [place] informing that the mortising machine operator at [facility] would not page Dr. Moralez. Will have nurse relay to nursing facility that we were unable to contact Dr. Moralez or Nam off and that they would need to adjust her Coumadin dose. Procedures Other Procedures Procedure(s): Paracentesis: Patient was consented for paracentesis. She was explained risk benefits. She was informed of what my complications have been. The only complication had is leak from an insertion site. Patient was prepped draped sterile manner. The area was anesthetized with 1% lidocaine. Right lower quadrant was determined site. Able to enter the peritoneal cavity easily. Fluid is straw-colored and clear. Discharge Plan Triage Chief Complaint: Dental ED Provider: Anders Ann Dx/Rx/DC Orders Clinical Impression: Warfarin-induced coagulopathy, Spontaneous hemorrhage, Chronic periodontal disease, Gingivitis, Anemia, normocytic normochromic Instructions: What to Know When Taking?Warfarin Prescriptions: No Action levothyroxine 75 mcg tablet 75 mcg PO SUTUWETHFRSA loratadine 10 mg tablet 10 mg PO DAILY carvedilol 12.5 mg tablet 12.5 mg PO BID Qty: 180 3RF Rx Instructions: must administer with a meal/food atorvastatin 20 MG tablet 20 mg PO QHS cyanocobalamin (vitamin B-12) 1,000 MCG tablet 1,000 mcg PO DAILY potassium chloride 10 MEQ tablet extended release 10 meq PO DAILY warfarin 3 mg tablet 3 mg PO QPM alum-mag hydroxide-simeth [Advanced Antacid-Antigas] 200-200-20 mg/5 mL suspension 30 ml PO Q4H PRN (Reason: indigestion) bisacodyl 10 mg suppository 10 mg FL DAILY PRN (Reason: constipation) levothyroxine 75 mcg tablet 37.5 mcg PO MO loperamide [Anti-Diarrheal (loperamide)] 2 mg capsule 4 mg PO DAILY PRN (Reason: loose stool) Rx Instructions: DO NOT EXCEED 8 TABS IN 24 HOURS polyethylene glycol 3350 [ClearLax] 17 gram/dose powder 17 g PO DAILY magnesium hydroxide [Milk of Magnesia] 400 mg/5 mL suspension 30 ml PO DAILY PRN (Reason: constipation) acetaminophen 325 mg Tablet 650 mg PO .Q4 PRN (Reason: Pain 1-10 Or Fever>100.7) budesonide-formoterol [Symbicort] 160-4.5 mcg/actuation HFA aerosol inhaler 2 puff inhalation BID Qty: 10.2 1RF albuterol sulfate [ProAir HFA] 90 mcg/actuation HFA aerosol inhaler 2 puff inhalation Q6H PRN (Reason: shortness of breath or wheezing) Qty: 8.5 0RF prednisone 20 mg tablet 20 mg PO DAILY Qty: 7 0RF Rx Instructions: one daily for seven days, then stop Primary Care Provider: Zachary Carrera Referrals: Zachary Carrera MD [Primary Care Provider] - Activity Restrictions/Additional Instructions: Hold next Coumadin dose. Contact Dr. Moralez or Dr. Zachary Castañeda off regarding warfarin dosing. Furthermore, will need to monitor once this is resumed. Print Language: Sami Disposition Disposition: Home, Self Care
[2024-07-07 19:47] LABS: International Normalized Ratio 14.2
[2024-07-07] MEDS: HUM PROTHROMBIN CPLX(PCC)-LANS 3,120 UNIT in Viaflex Bag 1 BAG 422 UNIT IV (20:50)
[2024-07-07] MEDS: Phytonadione (Vit K) 10 MG in 0.9% Normal Saline (50mL Bag) 50 ML 153 MG IV (21:09)
--- NOTE | 2024-07-07 21:15 | ED.RN ---
Updated Annie ROBLES from [place], questions/concerns updated
[2024-07-07 21:36] VITALS: BP 116/78; PULSE 64; RESP 18; TEMP 36.6; O2SAT 99
== END 2024-07-07 22:10 | disposition home or self-care (01) ==
PROVIDERS: Emergency Provider Emergency Medicine; PCP Family Medicine; Visit Provider Emergency Medicine
DX: K05.6 Periodontal disease, unspecified (principal); I48.0 Paroxysmal atrial fibrillation; R79.1 Abnormal coagulation profile; K05.10 Chronic gingivitis, plaque induced; D64.9 Anemia, unspecified; I25.2 Old myocardial infarction; Z79.01 Long term (current) use of anticoagulants; Z87.891 Personal history of nicotine dependence; Z86.73 Personal history of transient ischemic attack (TIA), and cerebral infarction without residual deficits
CPT/HCPCS: 85027; 85610; 96365; 96367; 99285; C9159; J3490

== ENCOUNTER 2024-07-11 12:14 | Emergency (ER) | payer MEDICARE, OTHER, SELFPAY ==
[2024-07-11 12:15] VITALS: BP 112/77; PULSE 65; RESP 24; TEMP 36.9; O2SAT 93; BMI 20.5
--- NOTE | 2024-07-11 12:55 | CT_ITS ---
EXAM: CT CHEST, ABDOMEN AND PELVIS WITH INTRAVENOUS CONTRAST CLINICAL INDICATION: right rib pain, RUQ pain TECHNIQUE: Helically acquired images were obtained of the chest, abdomen and pelvis with intravenous contrast. This CT exam was performed using one or more of the following dose reduction techniques: automated exposure control, adjustment of the mA and/or kV according to patient size, and/or use of iterative reconstruction technique. CONTRAST: IV 100mL Isovue-370 RADIATION DOSE: CTDIvol = 13.65 mGy, DLP = 818.62 mGy-cm COMPARISON: 04.21.24 CT abdomen and pelvis. CT chest of the 1123 FINDINGS: CHEST: LUNGS AND PLEURAL SPACES: There is no pneumothorax. Pulmonary emphysema. Small bilateral pleural effusions. No mass. HEART: There are calcifications of the coronary arteries. Heart size is normal. No pericardial effusion. MEDIASTINUM: Unremarkable. No mediastinal or hilar adenopathy. Esophagus is unremarkable. No hiatal hernia. THYROID: Unremarkable. No thyroid lesions. ABDOMEN: LIVER: Normal liver. GALLBLADDER AND BILE DUCTS: Unremarkable. No calcified gallstones. No gallbladder distention or wall edema. No intra- or extrahepatic biliary ductal dilation. Normal gallbladder and extrahepatic biliary system. PANCREAS: Unremarkable. No focal cystic or solid mass. Normal pancreas. SPLEEN: Unremarkable. Normal spleen. ADRENALS: Unremarkable. Normal bilateral adrenal glands. KIDNEYS AND URETERS: There are three 2 mm calculi in the left renal calyx. These are nonobstructive. Stable right renal cyst. Normal renal size and position. No acute findings of the left kidney. STOMACH AND BOWEL: Unremarkable. No stomach or bowel distention. No focal inflammatory change. Normal visualized stomach. Normal small intestine. Normal colon. PELVIS: APPENDIX: The appendix is visualized and appears normal. BLADDER: Unremarkable. Normal urinary bladder. REPRODUCTIVE: There is absence of the uterus consistent with a prior hysterectomy. CHEST, ABDOMEN and PELVIS: INTRAPERITONEAL SPACE: Unremarkable. No ascites or other fluid collection. No free air. BONES/JOINTS: There are degenerative changes of the shoulders. There are multi-level degenerative changes of the thoracic spine. There are diffuse degenerative changes of the visualized lumbar spine. No suspicious lytic or blastic abnormality. No rib fractures. SOFT TISSUES: Unremarkable. No discrete abdominal or pelvic wall hernia. Normal abdominal wall. VASCULATURE: There is atherosclerotic calcification of the aortic arch with tortuosity and elongation of the aortic arch and descending thoracic aorta. There are calcifications of the abdominal aorta. This is consistent for atherosclerotic disease. There is no abdominal aortic aneurysm. Normal pulmonary arteries. LYMPH NODES: Unremarkable. No enlarged lymph nodes. TUBES, LINES AND DEVICES: There is a left sided pacemaker batterypack. CT/CT Chest, Abd, Pel w/Contrast IMPRESSION: 1. No rib fractures. 2. Small bilateral pleural effusions. 3. There are three 2 mm calculi in the left renal calyx. These are nonobstructive. Electronically Signed: Attila Jurado MD at 14:51 EST ,
--- NOTE | 2024-07-11 12:57 | EKG12_ITS ---
Test Reason : BACK PAIN Blood Pressure : */* mmHG Vent. Rate : 65 BPM Atrial Rate : 58 BPM P-R Int : * ms QRS Dur : 188 ms QT Int : 480 ms P-R-T Axes : * -88 92 degrees QTcB Int : 499 ms Ventricular-paced rhythm Abnormal ECG Confirmed by Adan Trevizo ([id number]), desk editor ZABRINA ALEXANDER ([id number]) on 07/13/2024 10:28:53 AM Referred By: Confirmed By: Adan Trevizo
[2024-07-11 13:10] LABS: Absolute Lymphocyte Count 1.23 X10^3/uL (0.83-4.51); Absolute Neutrophil Count 3.6 X10^3/uL (2.0-7.7); Basophil# 0.02 X10^3/uL; Basophil% 0.4 % (0-1); Eosinophil# 0.14 X10^3/uL; Eosinophils% 2.6 % (0-5); Hematocrit 36.1 % (37-47); Hemoglobin 11.4 g/dL (12.0-15.0); Lymphocyte # 1.23 X10^3/ul (0.83-4.51); Lymphocyte % 22.9 % (19-41); Mean Corp Hgb Conc 31.6 g/dL (32-36); Mean Corpuscular Hgb 29.7 pg (27.0-32.0); Mean Platelet Vol. 10.4 fl (6.2-12.0); Monocyte# 0.39 X10^3/uL; Monocyte% 7.3 % (0-10); NRBC Flagged by Analyzer 0 % (0-5); Neutrophil # 3.57 X10^3/uL (2.7-7.7); Neutrophil % 66.4 % (47-70); Platelet Count 166 K/mm3 (150-450); RBC Distribution Width CV 15.9 % (11.6-14.6); RBC Distribution Width SD 54.6 fl (35.1-43.9); Red Blood Count 3.84 M/mm3 (4.2-5.4); White Blood Count 5.4 K/mm3 (4.4-11.0)
[2024-07-11 13:19] LABS: International Normalized Ratio 1.2
[2024-07-11 13:34] LABS: AST(SGOT) 23 U/L (15-37); Alanine Aminotransfer ALT/SGPT 28 U/L (13-56); Albumin, Serum 2.4 g/dL (3.2-5.0); Alkaline Phosphatase 148 U/L (45-117); Anion Gap 3 (5-15); BUN 21 mg/dL (7-18); BUN/Creat Ratio 26.2 RATIO (10-20); Bilirubin, Direct 0.25 mg/dL (0.00-0.30); Calcium,Total 8.7 mg/dL (8.5-10.1); Chloride 113 mmol/L (98-107); EST Glomerular Filtration Rate 72 mL/min (>60); Est Glom Filt Rate - Afr Amer 87 mL/min (>60); Globulin 3.3 g/dL (2.2-4.2); Glucose 97 mg/dL (74-106); Lipase 12 U/L (13-75); Potassium 4.6 mmol/L (3.5-5.1); Protein, Total 5.7 g/dL (6.4-8.2); Sodium Level 145 mmol/L (136-145); Troponin-I HS 217 pg/mL (3.0-54.0)
[2024-07-11 14:14] VITALS: BP 119/60; PULSE 76; RESP 16; O2SAT 98
--- NOTE | 2024-07-11 14:19 | EDS_ITS ---
HPI History of Present Illness Chief Complaint: Back Informant: patient Narrative Narrative: Patient is 88-year-old female chronic Coumadin therapy with recent hospital visit for supratherapeutic INR and bleeding from her gums (was reversed) presenting from [facility] for back pain. No report of any injury. Patient states it started yesterday. It is worse with deep breathing or movement. She also is plaint of pain in her right upper quadrant. She denies any cough or difficulty breathing. No she could not sleep last night because of the pain. States she received couple dose of Tylenol and is currently feeling much better. Denies any chest pain. Denies any change in bowel movements. No other complaints or concerns reported at this time. [facility] Medical History Hypoxia Elevated troponin Cerebrovascular disease Anticoagulated on Coumadin Elevation of cardiac enzymes Vasculitis Hypercoagulable state Patent foramen ovale Non-ischemic cardiomyopathy Stenosis of left carotid artery Sick sinus syndrome Paroxysmal atrial fibrillation Essential (primary) hypertension Right bundle branch block (RBBB) Multiple premature ventricular complexes CVA (cerebral vascular accident) Pre-syncope Elevated troponin (06/16/20) Atrial fibrillation with RVR Elevated blood pressure reading in office with white coat syndrome, without diagnosis of hypertension History of non-ST elevation myocardial infarction (NSTEMI) (05/23/21) Hyperlipidemia Chronic antral gastritis Hypokalemia Gastric polyp Back pain Osteoarthritis of spine Syncope History of vasculitis Acute GI bleeding Orthostatic hypotension Lower gastrointestinal bleeding History of TIA (transient ischemic attack) (06/16/20) Hypothyroidism History of breast cancer Home Medications ?Medication ?Instructions ?Recorded ?Last Taken ?Type atorvastatin 20 mg tablet 20 mg PO QHS cholesterol 08/20/13 01/26/24 History cyanocobalamin (vitamin B-12) 1,000 mcg PO DAILY supplement 11/02/18 01/27/24 History 1,000 mcg tablet potassium chloride 10 mEq 10 meq PO DAILY potassium 11/02/18 01/27/24 History tablet,extended release levothyroxine 75 mcg tablet 75 mcg PO SUTUWETHFRSA thyroid 04/08/19 01/27/24 History loratadine 10 mg tablet 10 mg PO DAILY allergies 06/19/21 01/27/24 History carvedilol 12.5 mg tablet 12.5 mg PO BID blood pressure #180 10/18/21 01/27/24 Rx tabs warfarin 3 mg tablet 3 mg PO QPM blood thinner 09/18/23 01/26/24 History acetaminophen 325 mg tablet 650 mg PO .Q4 PRN Pain 1-10 Or 01/27/24 04/21/24 History Fever>100.7 aluminum-mag hydroxide-simethicone 30 ml PO Q4H PRN indigestion 01/27/24 Unknown History 200 mg-200 mg-20 mg/5 mL oral susp (Advanced Antacid-Antigas) bisacodyl 10 mg rectal suppository 10 mg [place] DAILY PRN constipation 01/27/24 Unknown History levothyroxine 75 mcg tablet 37.5 mcg PO MO for thyroid 01/27/24 01/26/24 History loperamide 2 mg capsule 4 mg PO DAILY PRN loose stool 01/27/24 Unknown History (Anti-Diarrheal (loperamide)) magnesium hydroxide 400 mg/5 mL 30 ml PO DAILY PRN constipation 01/27/24 Unknown History oral suspension (Milk of Magnesia) polyethylene glycol 3350 17 17 g PO DAILY constipation 01/27/24 01/27/24 History gram/dose oral powder (ClearLax) albuterol sulfate 90 mcg/actuation 2 puff inhalation Q6H PRN 01/28/24 Unknown Rx aerosol inhaler (ProAir HFA) shortness of breath or wheezing #8.5 grams budesonide-formoterol HFA 160 2 puff inhalation BID #10.2 grams 01/28/24 Unknown Rx mcg-4.5 mcg/actuation aerosol inhaler (Symbicort) prednisone 20 mg tablet 20 mg PO DAILY #7 tabs 01/28/24 Unknown Rx lidocaine 5 % topical patch 1 patch topical DAILY PRN pain #15 07/11/24 Unknown Rx (Lidocan IV) ea Allergy/AdvReac Type Severity Reaction Status Date / Time omeprazole Allergy Severe Swelling Verified 07/11/24 12:15 lansoprazole Allergy Intermediate edema Verified 07/11/24 12:15 levofloxacin (From Levaquin) Allergy Angioedema Verified 07/11/24 12:15 lisinopril Allergy Swelling Verified 07/11/24 12:15 Penicillins Allergy Itching Verified 07/11/24 12:15 Sulfa (Sulfonamide Allergy Angioedema Verified 07/11/24 12:15 Antibiotics) amlodipine AdvReac Severe severe Verified 07/11/24 12:15 hypotension Family History Father Myocardial infarction Sister CAD (coronary artery disease) Stents Brother CVA (cerebral vascular accident) Surgical History History of left heart catheterization (05/23/21) History of permanent cardiac 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) History of open reduction and internal fixation (ORIF) procedure History of esophagogastroduodenoscopy (EGD) (08/2018) History of colonoscopy (08/2018) History of right mastectomy Social History household members: other details: Twin sister housing: assisted living facility Smoking Status: Former smoker Tobacco: How many years used: 20 how long ago did patient quit smokin years ago second hand exposure: No alcohol intake: current alcohol intake frequency: holidays/special occasions only substance use type: does not use caffeine: No ROS ROS ED Constitutional Constitutional ED: Denies chills or fever(s) Cardiovascular Cardiovascular: Denies chest pain Gastrointestinal Gastrointestinal: Reports abdominal pain; Denies nausea or vomiting Musculoskeletal Musculoskeletal: Denies arthralgias Neurologic Neurologic: Denies paresthesias or weakness Hematologic/Lymphatic Hematologic/Lymphatic: Reports easy bleeding, easy bruising and other Details: on Coumadin EXAM Physical Exam Const Vital Signs: 07/11/24 12:15 07/11/24 14:14 Temperature 98.4 F Temperature Source Oral Pulse Rate 65 76 Respiratory Rate 24 H 16 Blood Pressure 112/77 119/60 Blood Pressure Mean 88 79 Pulse Ox 93 98 Oxygen Delivery Method Room Air Room Air Positive well nourished and well developed General Appearance ED: well developed and NAD HEENT Reports moist mucous membranes Eyes PERRL and EOMs intact bilaterally General Eye ED: Negative for pale conjunctiva Neck supple and no JVD Chest Wall Chest Narrative: No anterior chest wall tenderness palpation. Tenderness palpation over the right lower posterior ribs, no crepitus or motion abnormality appreciated. Resp normal respiratory effort and clear to auscultation bilaterally Cardio regular rate and regular rhythm GI normal to inspection, nondistended, normoactive bowel sounds Palpation: tender RUQ Back/Spine General Back: CVA tenderness right Extremity normal to inspection General Extremety ED: Negative for edema General Extremity: Negative for edema Neuro oriented x3 Neuro Narrative: Generally weak, no focal deficits appreciated. Sensorium / Orientation: alert Psych mental status grossly normal Skin no rashes or lesions noted Skin Narrative: Scattered ecchymosis present. No bruising or wound noted over her area of pain however MDM MDM MDM Narrative Medical decision making narrative: Patient is evaluated for atraumatic right back pain. It is hard to localize but seems to be in her right posterior ribs but she does also have some tenderness in her right upper quadrant and along her costal margin. No reported trauma. She did recently have spontaneous bleeding from supratherapeutic INR. Differential includes rib fracture, rib strain, shingles (less likely as there is no overlying rash), choledocholithiasis, referred cardiac pain, pneumothorax, pancreatitis and expanding hematoma. Patient states her pain is actually improving now (received Tylenol prior to arrival). Is ordered a Lidoderm patch. She is hemodynamically stable emergency room however blood pressures are soft however it shows that patient frequently does have blood pressures similar to this. Patient has a stable anemia with a hemoglobin 11.4, no signs of acute blood loss. Her INR is now subtherapeutic at 1.2. Kidney function is normal. She has a mild elevation of alkaline phosphatase but normal lipase, AST, ALT and bilirubin. She is a chronically elevated high sensitive troponin of 217. I doubt that this is ACS but will repeat troponin to make sure it is not uptrending. CT of the chest abdomen pelvis does not show any rib fractures, it does show sma ll bilateral pleural effusions and nonobstructing left renal calculi. Patient and daughter informed that workup largely negative. They are comfortable being discharged back home. Lab Data Attestation: I reviewed the patient's lab results. Labs: Laboratory Results - last 24 hr 07/11/24 07/11/24 13:06 15:00 WBC 5.4 RBC 3.84 L Hgb 11.4 L Hct 36.1 L MCV 94.0 MCH 29.7 MCHC 31.6 L RDW Std Deviation 54.6 H RDW Coeff of Duc 15.9 H Plt Count 166 MPV 10.4 Immature Gran % (Auto) 0.400 Neut % (Auto) 66.4 Lymph % (Auto) 22.9 [place] % (Auto) 7.3 Eos % (Auto) 2.6 Baso % (Auto) 0.4 Absolute Neuts (auto) 3.6 Absolute Lymphs (auto) 1.23 Nucleated RBC % 0 PT 15.0 H INR 1.2 Sodium 145 Potassium 4.6 Chloride 113 H Carbon Dioxide 29.0 Anion Gap 3 L BUN 21 H Creatinine 0.80 Estim Creat Clear Calc 45.50 Est GFR (MDRD) Af Amer 87 Est GFR (MDRD) Non-Af 72 BUN/Creatinine Ratio 26.2 H Glucose 97 Calcium 8.7 Total Bilirubin 0.70 Direct Bilirubin 0.25 AST 23 ALT 28 Alkaline Phosphatase 148 H Troponin I High Sens 217 H* 218 H* Total Protein 5.7 L Albumin 2.4 L Globulin 3.3 Lipase 12 L Radiography Diagnostic Testing: Clinical Impression(s) from Imaging Studies Chest/Abdomen/Pelvis CT 07/11/24 12:55 IMPRESSION: 1. No rib fractures. 2. Small bilateral pleural effusions. 3. There are three 2 mm calculi in the left renal calyx. These are nonobstructive. Electronically Signed: Attila Jurado MD at 14:51 EST , Rhythm Strip Rhythm Strip: Paced Rate: 65 Ectopy: None EKG Initial EKG: Attestation: I personally reviewed and interpreted this EKG as follows: Interpretation: Paced Comments: Ventricular paced rhythm at a rate of [address] segments Discharge Plan Triage Chief Complaint: Back ED Provider: Anna Varma Dx/Rx/DC Orders Clinical Impression: Acute right-sided back pain, Subtherapeutic international normalized ratio (INR) Instructions: ED Back Sprain/Strain Prescriptions: New lidocaine [Lidocan IV] 5 % adhesive patch,medicated 1 patch topical DAILY PRN (Reason: pain) Qty: 15 0RF Rx Instructions: leave on most painful area for up to 12 hrs No Action levothyroxine 75 mcg tablet 75 mcg PO SUTUWETHFRSA loratadine 10 mg tablet 10 mg PO DAILY carvedilol 12.5 mg tablet 12.5 mg PO BID Qty: 180 3RF Rx Instructions: must administer with a meal/food atorvastatin 20 MG tablet 20 mg PO QHS cyanocobalamin (vitamin B-12) 1,000 MCG tablet 1,000 mcg PO DAILY potassium chloride 10 MEQ tablet extended release 10 meq PO DAILY warfarin 3 mg tablet 3 mg PO QPM alum-mag hydroxide-simeth [Advanced Antacid-Antigas] 200-200-20 mg/5 mL suspension 30 ml PO Q4H PRN (Reason: indigestion) bisacodyl 10 mg suppository 10 mg [place] DAILY PRN (Reason: constipation) levothyroxine 75 mcg tablet 37.5 mcg PO MO loperamide [Anti-Diarrheal (loperamide)] 2 mg capsule 4 mg PO DAILY PRN (Reason: loose stool) Rx Instructions: DO NOT EXCEED 8 TABS IN 24 HOURS polyethylene glycol 3350 [ClearLax] 17 gram/dose powder 17 g PO DAILY magnesium hydroxide [Milk of Magnesia] 400 mg/5 mL suspension 30 ml PO DAILY PRN (Reason: constipation) acetaminophen 325 mg Tablet 650 mg PO .Q4 PRN (Reason: Pain 1-10 Or Fever>100.7) budesonide-formoterol [Symbicort] 160-4.5 mcg/actuation HFA aerosol inhaler 2 puff inhalation BID Qty: 10.2 1RF albuterol sulfate [ProAir HFA] 90 mcg/actuation HFA aerosol inhaler 2 puff inhalation Q6H PRN (Reason: shortness of breath or wheezing) Qty: 8.5 0RF prednisone 20 mg tablet 20 mg PO DAILY Qty: 7 0RF Rx Instructions: one daily for seven days, then stop Primary Care Provider: Zachary Carrera Referrals: Zachary Carrera MD [Primary Care Provider] - Activity Restrictions/Additional Instructions: Continue take Tylenol as needed for pain. Your INR was low today at 1.2. Use Lidoderm patches as prescribed to help with pain as well. Your workup was largely negative for cause of your pain today and your lab work overall is reassuring. Print Language: Divehi Disposition Disposition: Assisted Living
[2024-07-11] MEDS: Lidocaine 5% Patch 1 PATCH TOPICAL (14:32)
[2024-07-11 15:48] LABS: Troponin-I HS 218 pg/mL (3.0-54.0)
[2024-07-11 16:00] VITALS: BP 100/78; PULSE 68; RESP 16; TEMP 36.6; O2SAT 93
== END 2024-07-11 16:43 | disposition home or self-care (01) ==
PROVIDERS: Emergency Provider Emergency Medicine; PCP Family Medicine; Visit Provider Emergency Medicine
DX: M54.9 Dorsalgia, unspecified (principal); R79.1 Abnormal coagulation profile; Z86.73 Personal history of transient ischemic attack (TIA), and cerebral infarction without residual deficits; Z87.891 Personal history of nicotine dependence; Z95.0 Presence of cardiac pacemaker; Z79.01 Long term (current) use of anticoagulants
CPT/HCPCS: 71260; 74177; 80048; 80076; 83690; 84484; 85025; 85610; 93005; 99285; Q9967; A4216